=== PATIENT | male | born 1985 | race Caucasian/White ===

== ENCOUNTER 2021-07-28 17:10 | Observation (INO) ==
[2021-07-28] MEDS ORDERED: LORazepam 2 MG/1 ML VIAL IV STA (17:44)
[2021-07-28] MEDS ORDERED: SODIUM CHLORIDE 0.9% 1000ML 1,000 ML IV ONE (17:44)
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
[2021-07-28 18:33] LABS: Hematocrit (blood only) 37.9 % (42-52); Hemoglobin 12.9 g/dL (14.0-18.0); Mean Corpuscular Hemoglobin 35.6 pg (25-34); Mean Corpuscular Volume 104.7 fL (80-100); Mean Platelet Volume 9.5 fL (7.4-10.4); Platelet Count 234 K/uL (130-400); RDW Coefficient of Variation 12.9 % (11.5-14.5); RDW Standard Deviation 49.3 fL (36.4-46.3); Red Blood Count 3.62 M/uL (4.7-6.1); White Blood Count 8.23 K/uL (4.8-10.8)
[2021-07-28 18:47] LABS: Acetaminophen < 3 ug/ml (10-30); D Dimer < 190 ug/L FEU (0-500); Salicylate < 3.0 mg/dl (3.0-30)
[2021-07-28 18:51] LABS: ALC (manual) 0.35 K/uL (1.2-3.4); Lymphocytes # (manual) 0.35 K/uL (1.2-3.4); Lymphocytes % (manual) 4.3 %; Monocytes # (manual) 0.07 K/uL (0.11-0.59); Monocytes % (manual) 0.9 %; Neutrophils % (manual) 94.8 %
[2021-07-28 18:59] LABS: Albumin Globulin Ratio 1.5 (0.9-2); Albumin Level 3.5 gm/dl (3.4-5.0); BUN Creatinine Ratio 16.5 (10-20); Bilirubin,Total 0.3 mg/dl (0.2-1.0); Calcium 8.5 mg/dl (8.5-10.1); Creatinine Clr Calc Pharmacy 81.1 ml/min; Est GFR (Non-African American) 80.3 ml/min; Globulin 2.3 gm/dl (2.5-4.0); Total Protein 5.8 gm/dl (6.0-8.3)
[2021-07-28] MEDS ORDERED: NovoLIN-R INSULIN PER UNIT CHARGE IV STA (19:12)
[2021-07-28] MEDS ORDERED: POTASSIUM CHLORIDE CRTAB 20 MEQ TABCR PO STA (19:12)
[2021-07-28 19:15] LABS: Potassium 4.6 mmol/L (3.5-5.1)
[2021-07-28 19:19] LABS: Amphetamines+Metham, Urine Neg (Neg); Barbiturates, Urine Neg (Neg); Benzodiazepine, Urine Neg (Neg); Cocaine, Urine Neg (Neg); MDMA (Ecstacy), Urine Neg (Neg); Methadone, Urine Neg (Neg); Opiate, Urine Neg (Neg); Phencyclidine, Urine Neg (Neg)
[2021-07-28] MEDS ORDERED: CONSULT PHARMACY STA (20:20)
[2021-07-28] MEDS ORDERED: PHARMACY GLYCEMIC MGMT CONSULT PRN (20:43)
[2021-07-28] MEDS ORDERED: INSULIN GLARGINE SOLOSTAR 100 UNITS/ML 3 ML PEN SC ONE (21:00)
[2021-07-28] MEDS ORDERED: INSULIN ASPART PER UNIT SC SCH (21:00)
[2021-07-28] MEDS ORDERED: SODIUM CHLORIDE 0.9% 500 ML IV ONE (21:23)
[2021-07-29] MEDS: INSULIN ASPART PER UNIT SC SCH ×6 (00:51→21:26)
--- NOTE | 2021-07-29 01:54 | Emergency Department Note ---
ED Visit Note Patient was placed on a sliding scale, there is a bed search for 201 due to suicidal ideation, the patient has a history of insulin-dependent diabetes, child welfare caseworker states that he continuously is denied due to his elevated blood sugar. Review of his labs he is not in diabetic ketoacidosis, a sliding scale was started by Dr. Rojas. This case was discussed with Dr. Carey for admission to the hospital at 1:54 AM Patient admitted to [facility] Diagnosis is hyperglycemia, uncontrolled; suicidal ideation Stable at 1:54 AM .
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
[2021-07-29] MEDS ORDERED: DEXTROSE 50% 50 ML SYRINGE IV PRN (04:54)
[2021-07-29] MEDS ORDERED: ACETAMINOPHEN 325 MG TAB PO PRN (04:54)
[2021-07-29] MEDS ORDERED: GLUCOSE 10 TABS/TUBE PO PRN (04:54)
[2021-07-29] MEDS ORDERED: PHARMACY GLYCEMIC MGMT CONSULT PRN (04:54)
[2021-07-29] MEDS ORDERED: CARBOHYDRATES FOR HYPOGLYCEMIA PO PRN (04:54)
[2021-07-29] MEDS ORDERED: SODIUM CHLORIDE 0.9% 1000ML 1,000 ML IV SCH (04:54)
[2021-07-29] MEDS ORDERED: GLUCAGON FOR INJ 1 MG VIAL SQ PRN (04:54)
[2021-07-29] MEDS ORDERED: GLUCOSE 40% GEL 15 GM TUBE PO PRN (04:54)
--- NOTE | 2021-07-29 05:49 | Communication Note ---
Date of Service: July 29, 2021 Notified by nursing of patient ripping out IV and refusing IV fluids, labs, or replacement of IV at this time. Reviewed chart. BSG lowered to below 200 w/p 20u IV insulin and is on sq regimen now. He received 40meq KCl in ED. Instructed nurse ok to defer labs and IV fluids temporarily. Day team to assess patient in morning if possible and to f/u that labs get done.
[2021-07-29 07:22] LABS: Phosphorus 3.6 mg/dl (2.5-4.9)
[2021-07-29] MEDS ORDERED: INSULIN ASPART PER UNIT SC SCH (07:30)
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
[2021-07-29] MEDS ORDERED: INSULIN GLARGINE SOLOSTAR 100 UNITS/ML 3 ML PEN SC SCH ×3 (09:00→21:00)
[2021-07-29 10:36] LABS: Hematocrit (blood only) 38.2 % (42-52); Hemoglobin 12.8 g/dL (14.0-18.0); Mean Corpuscular Hgb Conc 33.5 g/dL (32-36); Mean Corpuscular Volume 104.4 fL (80-100); Mean Platelet Volume 9.5 fL (7.4-10.4); Platelet Count 225 K/uL (130-400); RDW Coefficient of Variation 13.3 % (11.5-14.5); Red Blood Count 3.66 M/uL (4.7-6.1); White Blood Count 8.25 K/uL (4.8-10.8)
[2021-07-29 10:46] LABS: BUN Creatinine Ratio 10.5 (10-20); Calcium 8.3 mg/dl (8.5-10.1); Creatinine Clr Calc Pharmacy 85.3 ml/min; Est GFR (African American) 103.9 ml/min; Est GFR (Non-African American) 89.6 ml/min; Potassium 4.1 mmol/L (3.5-5.1)
[2021-07-29 12:17] LABS: Estimated Average Glucose 258 mg/dl; Hemoglobin A1C 10.6 % (4.5-5.6)
[2021-07-29 12:29] LABS: Folate (Folic Acid) 19.91 ng/ml (>5.38)
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
[2021-07-29 14:10] LABS: iSTAT Creatinine 0.9 mg/dl (0.6-1.3); iSTAT Hemoglobin 13.6 g/dl (14.0-18.0); iSTAT Ionized Calcium 1.09 mmol/l (1.12-1.32); iSTAT Potassium 4.5 mmol/L (3.3-5.0)
[2021-07-29] MEDS: FOLIC ACID 1 MG TAB PO SCH (14:17)
[2021-07-29] MEDS: CYANOCOBALAMIN (B-12) 500 MCG TABLET PO SCH (14:17)
--- NOTE | 2021-07-29 14:24 | Pharmacy Report ---
Pharmacy Glycemic Short Note 2 - Date of Service July 29, 2021 - Glycemic Short BSG Results (Last 24 hours): 07/28/21 07/28/21 07/28/21 18:18 18:23 19:18 Glucose 514 H* POC Glucose 504 H* POC Glucose (other) 557 H* 07/28/21 07/28/21 07/28/21 20:02 20:52 23:02 Glucose POC Glucose 409 H* 235 H 107 H POC Glucose (other) 07/29/21 07/29/21 07/29/21 00:46 01:23 04:01 Glucose POC Glucose 159 H 171 H 188 H POC Glucose (other) 07/29/21 07/29/21 07/29/21 07:49 10:08 11:35 Glucose 189 H POC Glucose 191 H 127 H POC Glucose (other) OUTPATIENT ANTIDIABETIC REGIMEN: * Lantus 10 units BID? * Novolog sliding scale * HbA1C = 10.6% (07/29/21) ASSESSMENT: * Mr Horton is a 36 y/o T1DM who presents with chest pain. Due to patient's social situation, his insulin use is sporadic and he does not check his blood sugar. * Due to patient's unknown insulin requirements, will start with 0.4 units/kg for a type 1 diabetic. That correlates to about 25 units/day. * Lantus 10 units plus 20 units of IV insulin given last night due to elevated BSGs. * BSGs overnight were 159-188 mg/dL (received an additional 3 units of Novolog overnight). * Fasting this morning was 191 mg/dL. * Will provide Lantus 10 units tonight with her dose available if BSGs trend upwards significantly. * Novolog weight-based stress of ~2. PLAN FOR INPATIENT GLYCEMIC CONTROL: * Basal insulin * Lantus 10 units SQ HS (12 units if BSG >/= 180 mg/dL) * Bolus insulin * NovoLog per scale ACHS or Q6hrs while NPO * Goal Range: Low 110 mg/dL - High 140 mg/dL * Correction Factor: 40 mg/dL/unit * Nutritional / Prandial insulin per carb ratio of 1 unit per 12 grams CHO consumed
--- NOTE | 2021-07-29 17:57 | Electrocardiogram Report ---
Test Reason : Blood Pressure : / mmHG Vent. Rate : 110 BPM Atrial Rate : 110 BPM P-R Int : 140 ms QRS Dur : 076 ms QT Int : 320 ms P-R-T Axes : 059 049 042 degrees QTc Int : 433 ms Sinus tachycardia Otherwise normal ECG No previous ECGs available Confirmed by Pan Cummins ([id number]) on 07/29/2021 5:56:43 PM Referred By: REFERRED SELF Confirmed By:Uriah Cummins
[2021-07-30] MEDS: INSULIN ASPART PER UNIT SC SCH ×6 (01:08→20:56)
[2021-07-30 06:27] LABS: Hemoglobin 13.5 g/dL (14.0-18.0); Mean Corpuscular Hemoglobin 34.7 pg (25-34); Mean Corpuscular Hgb Conc 32.9 g/dL (32-36); Mean Corpuscular Volume 105.4 fL (80-100); Mean Platelet Volume 9.7 fL (7.4-10.4); Platelet Count 230 K/uL (130-400); RDW Coefficient of Variation 13.2 % (11.5-14.5); RDW Standard Deviation 50.5 fL (36.4-46.3); Red Blood Count 3.89 M/uL (4.7-6.1); White Blood Count 7.16 K/uL (4.8-10.8)
[2021-07-30 06:49] LABS: Albumin Level 3.3 gm/dl (3.4-5.0); Bilirubin,Total 0.3 mg/dl (0.2-1.0); Calcium 8.7 mg/dl (8.5-10.1); Creatinine Clr Calc Pharmacy 106.6 ml/min; Est GFR (African American) 128.7 ml/min; Est GFR (Non-African American) 111.1 ml/min; Potassium 3.9 mmol/L (3.5-5.1); Total Protein 5.8 gm/dl (6.0-8.3)
[2021-07-30 06:50] LABS: Basophils # (auto) 0.02 K/uL (0-0.2); Basophils % (auto) 0.3 %; Eosinophils # (auto) 0.13 K/uL (0-0.5); Eosinophils % (auto) 1.8 %; Immature Granulocytes # (auto) 0.02 K/uL (0.00-0.02); Immature Granulocytes % (auto) 0.3 %; Lymphocytes # (auto) 2.28 K/uL (1.2-3.4); Lymphocytes % (auto) 31.8 %; Monocytes # (auto) 0.56 K/uL (0.11-0.59); Monocytes % (auto) 7.8 %; Neutrophils # (auto) 4.15 K/uL (1.4-6.5)
[2021-07-30 07:51] LABS: Estimated Average Glucose 255 mg/dl; Hemoglobin A1C 10.5 % (4.5-5.6)
[2021-07-30] MEDS: CYANOCOBALAMIN (B-12) 500 MCG TABLET PO SCH (08:21)
[2021-07-30] MEDS: FOLIC ACID 1 MG TAB PO SCH (08:21)
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
--- NOTE | 2021-07-30 13:52 | Pharmacy Report ---
Pharmacy Glycemic Short Note 2 - Date of Service July 30, 2021 - Glycemic Short BSG Results (Last 24 hours): 07/28/21 07/29/21 07/29/21 18:23 16:09 20:41 Glucose POC Glucose 215 H 246 H POC Glucose (other) 557 H* 07/30/21 07/30/21 07/30/21 01:01 04:00 06:01 Glucose 163 H POC Glucose 176 H 217 H POC Glucose (other) 07/30/21 07/30/21 08:15 12:08 Glucose POC Glucose 220 H 196 H POC Glucose (other) OUTPATIENT ANTIDIABETIC REGIMEN: * Lantus 10 units BID? * Novolog sliding scale * HbA1C = 10.6% (07/29/21) ASSESSMENT: * BSGs yesterday were [phone] mg/dL and overnight were 176-217 mg/dL. * Patient received 45 units of insulin (12 units of basal and 33 units of bolus). * Fasting this morning was 220 mg/dL. Patient received 2 units of Novolog ove rnight. * Increase Lantus to 13 units. * Tighten Novolog slightly since blood sugars trended up after lunch. Baseline * Mr Sol is a 36 y/o T1DM who presents with chest pain. Due to patient's social situation, his insulin use is sporadic and he does not check his blood sugar. * Due to patient's unknown insulin requirements, will start with 0.4 units/kg for a type 1 diabetic. That correlates to about 25 units/day. * Lantus 10 units plus 20 units of IV insulin given last night due to elevated BSGs. * BSGs overnight were 159-188 mg/dL (received an additional 3 units of Novolog overnight). * Fasting this morning was 191 mg/dL. * Will provide Lantus 10 units tonight with her dose available if BSGs trend upwards significantly. * Novolog weight-based stress of ~2. PLAN FOR INPATIENT GLYCEMIC CONTROL: * Basal insulin * Lantus 13 units SQ HS * Bolus insulin * NovoLog per scale ACHS or Q6hrs while NPO * Goal Range: Low 110 mg/dL - High 140 mg/dL * Correction Factor: 35 mg/dL/unit * Nutritional / Prandial insulin per carb ratio of 1 unit per 11 grams CHO consumed
[2021-07-30] MEDS ORDERED: INSULIN GLARGINE SOLOSTAR 100 UNITS/ML 3 ML PEN SC SCH (21:00)
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
[2021-07-31] MEDS: CYANOCOBALAMIN (B-12) 500 MCG TABLET PO SCH (08:18)
[2021-07-31] MEDS: FOLIC ACID 1 MG TAB PO SCH (08:18)
[2021-07-31] MEDS: INSULIN ASPART PER UNIT SC SCH ×2 (08:19→12:33)
[2021-07-31 09:18] LABS: BUN Creatinine Ratio 17.5 (10-20); Calcium 8.8 mg/dl (8.5-10.1); Creatinine Clr Calc Pharmacy 111.9 ml/min; Est GFR (African American) 131.3 ml/min; Est GFR (Non-African American) 113.3 ml/min; Potassium 4.5 mmol/L (3.5-5.1)
--- NOTE | 2021-07-31 09:45 | Psychiatric Progress Note ---
Date of Service July 31, 2021 Impression / Recommendations Impression medically cleared for psychiatric hospitalization per hospitalist service (1) MDD (major depressive disorder), recurrent episode, moderate: (2) Suicidal ideation: (3) Intermittent explosive disorder in adult: 201 signed Risk Factors Assessment Do You Have Access To A Gun?: No Protective Factors Assessment Employed: No (disabled) Interval History Identifying Information 36 yo male admit medically for hyperglycemia. Presented with SI with plan to OD on insulin. Chief Complaint "I'm ready for next steps/want help." Review of Systems Notes sleep is OK, remains anxious about his situation, good PO intake. Subjective Subjective Patient was seen & assessed and interval progress reviewed with nursing. Remains on -- for suicide precautions pending transfer to inpatient psych. Patient understanding of bed availability and rationale for transfer. Voiced good understanding of inpatient care and 72 hr. notice on voluntary commitment. Physical Exam Psychiatric Orientation: alert and oriented x 3 Eye Contact: good eye contact Motor Behavior: no abnormal motor movements Speech: normal rate/rhythm/volume of speech Affect: + blunted affect Mood: + depressed mood Thought Process: goal directed thought process Thought Content: reality based without delusions Suicidal Thoughts: denies suicidal thoughts (on medical floor but unable to safety plan) Homicidal Thoughts: denies homicidal thoughts Hallucinations: no auditory hallucinations and no visual hallucinations Cognition: attention grossly intact and language grossly intact Vital Signs (Past 24 Hours) Last Vital Signs Temp 36.7 C 07/31/21 06:47 Pulse 94 H 07/31/21 06:47 Resp 16 07/31/21 06:47 BP 109/72 07/31/21 06:47 Pulse Ox 97 07/31/21 06:47 Results & Data ([facility]) Laboratory Results Laboratory Results - last 24 hr 07/30/21 07/30/21 07/30/21 12:08 17:11 20:21 Sodium Potassium Chloride Carbon Dioxide Anion Gap BUN Creatinine Est Cr Clr Drug Dosing Est GFR ( Amer) Est GFR (Non-Af Amer) BUN/Creatinine Ratio Glucose POC Glucose 196 H 272 H 187 H Calcium 07/31/21 07/31/21 08:04 08:23 Sodium 135 L Potassium 4.5 Chloride 99 Carbon Dioxide 30 Anion Gap 6 BUN 14 Creatinine 0.80 Est Cr Clr Drug Dosing 111.9 Est GFR ( Amer) 131.3 Est GFR (Non-Af Amer) 113.3 BUN/Creatinine Ratio 17.5 Glucose 226 H POC Glucose 212 H Calcium 8.8 Current Inpatient Medications Current Inpatient Medications: Current Inpatient Medications Acetaminophen (Acetaminophen 325 Mg Tab) 650 mg PO Q4H PRN PRN Reason: pain/fever Stop: 08/28/21 04:53 Cyanocobalamin (Cyanocobalamin (B-12) 500 Mcg Tablet) 1,000 mcg PO QAM COUNT INCLUDES THE [facility] Stop: 08/28/21 12:44 Last Admin: 07/31/21 08:18 Dose: 1,000 mcg Documented by: Dextrose (Dextrose 50% 50 Ml Syringe) 25 - 50 ml IV UD PRN; Protocol PRN Reason: Hypoglycemia Protocol Stop: 08/28/21 04:53 Folic Acid ([facility] 1 Mg Tab) [facility] Stop: 08/28/21 12:44 Last Admin: 07/31/21 08:18 Dose: 1 mg Documented by: Glucagon (Glucagon For Inj 1 Mg Vial) 1 mg SQ UD PRN; Protocol PRN Reason: Hypoglycemia Protocol Stop: 08/28/21 04:53 Glucose (Glucose 10 Tabs/Tube) 4 - 8 tabs PO UD PRN; Protocol PRN Reason: Hypoglycemia Protocol Stop: 08/28/21 04:53 Glucose (Glucose 40% Gel 15 Gm Tube) 15 - 30 gm PO UD PRN; Protocol PRN Reason: Hypoglycemia Protocol Stop: 08/28/21 04:53 Insulin Aspart (Insulin Aspart Per Unit) 0 units SC [facility] Stop: 08/28/21 07:29 Last Admin: 07/31/21 08:19 Dose: 8 units Documented by: Insulin Glargine (Insulin Glargine Solostar 100 Units/Ml 3 Ml Pen) 13 units SC [facility]; Protocol Stop: 08/29/21 20:59 Last Admin: 07/30/21 20:57 Dose: 13 units Documented by: Miscellaneous (Carbohydrates For Hypoglycemia ) 15 - 30 gm PO UD PRN PRN Reason: Hypoglycemia Protocol Stop: 08/28/21 04:53 Miscellaneous Information (Pharmacy Glycemic Mgmt Consult) 1 ea N/A UD PRN; Protocol PRN Reason: Consult Stop: 08/28/21 04:53 Mental Health & Subst Abuse Tx Therapist Name of Therapist: None Skates Operator Name of Skates Operator: None
== END 2021-07-31 12:50 | DRG 638 ==
LOC: ED 17:10 → 3E 07-29 02:18 → SUATTDRO 07-29 02:18 → INTOOBSV 07-29 02:18 → 3E 07-29 04:46

== ENCOUNTER 2021-12-03 22:07 | Inpatient (IN) ==
[2021-12-03] MEDS ORDERED: HHS GOAL RANGE 250-350 mg/dl ONE (22:21)
[2021-12-03] MEDS ORDERED: GLUCOSE 40% GEL 15 GM TUBE PO PRN (22:21)
[2021-12-03] MEDS ORDERED: STAT INSULIN DRIP STA (22:21)
[2021-12-03] MEDS ORDERED: DEXTROSE 50% 50 ML SYRINGE IV PRN (22:21)
[2021-12-03] MEDS ORDERED: GLUCOSE 10 TAB/TUBE PO PRN (22:21)
[2021-12-03] MEDS ORDERED: GLUCAGON FOR INJ 1 MG VIAL SQ PRN (22:21)
[2021-12-03] MEDS ORDERED: CARBOHYDRATES FOR HYPOGLYCEMIA PO PRN (22:21)
[2021-12-03] MEDS ORDERED: SODIUM CHLORIDE 0.9% 1000ML 1,000 ML IV ONE (22:21)
[2021-12-03] MEDS ORDERED: INSULIN REGULAR 250 UNITS in SODIUM CHLORIDE 0.9% 247.5 ML IV SCH (22:30)
[2021-12-03] MEDS ORDERED: SODIUM CHLORIDE 0.9% 1000ML 1,000 ML IV SCH ×2 (22:30→23:45)
[2021-12-03 22:44] LABS: Hematocrit (blood only) 43.9 % (40.1-51.0); Hemoglobin 13.5 g/dl (14.0-18.0); Mean Corpuscular Hemoglobin 34.5 pg (25.0-34.0); Mean Corpuscular Hgb Conc 30.8 g/dL (32.0-36.0); Mean Corpuscular Volume 112.3 fL (80.0-100.0); Mean Platelet Volume 9.5 fL (9.4-12.4); Platelet Count 375 K/uL (130-400); RDW Coefficient of Variation 13.7 % (11.5-14.5); RDW Standard Deviation 57.4 fL (36.4-46.3); Red Blood Count 3.91 M/uL (4.63-6.08); White Blood Count 12.56 K/ul (4.8-10.8)
[2021-12-03] MEDS ORDERED: NovoLIN-R BOLUS FROM BAG IV ONE (22:45)
[2021-12-03 22:49] LABS: iSTAT Blood Urea Nitrogen 28 mg/dl (7-18); iSTAT Carbon Dioxide 6 mmol/L (24-31); iSTAT Chloride 103 mmol/L (101-112); iSTAT Creatinine 1.3 mg/dl (0.6-1.3); iSTAT Glucose > 700 mg/dl (70-99); iSTAT Hematocrit 45 % (42-52); iSTAT Hemoglobin 15.3 g/dl (14.0-18.0); iSTAT Ionized Calcium 1.23 mmol/l (1.12-1.32); iSTAT Potassium 5.5 mmol/L (3.3-5.0); iSTAT Sodium 130 mmol/L (135-144)
[2021-12-03 23:09] LABS: Albumin Globulin Ratio 1.4 (0.9-2); BUN Creatinine Ratio 14.9 (10-20); Bilirubin,Total 0.3 mg/dl (0.2-1.0); Calcium 9.3 mg/dl (8.5-10.1); Creatinine Clr Calc Pharmacy 56.2 ml/min; Est GFR (African American) 61.9 ml/min; Est GFR (Non-African American) 53.4 ml/min; Globulin 2.9 gm/dl (2.5-4.0); Magnesium 2.7 mg/dl (1.7-2.4); Phosphorus 8.3 mg/dl (2.5-4.9); Potassium 5.3 mmol/L (3.5-5.1); Total Protein 6.9 gm/dl (6.0-8.3)
[2021-12-03 23:10] LABS: Basophils # (auto) 0.08 K/uL (0-0.2); Basophils % (auto) 0.6 %; Eosinophils # (auto) 0.03 K/uL (0-0.50); Eosinophils % (auto) 0.2 %; Immature Granulocytes # (auto) 0.25 K/uL (0.00-0.02); Lymphocytes # (auto) 1.78 K/uL (1.2-3.4); Lymphocytes % (auto) 14.2 %; Macrocytosis Present; Monocytes # (auto) 0.81 K/uL (0.24-0.82); Monocytes % (auto) 6.4 %; Neutrophils # (auto) 9.61 K/uL (1.4-6.5); Neutrophils % (auto) 76.6 %
[2021-12-03 23:13] LABS: iSTAT Arterial Blood Gas HCO3 3 meg/L (19-24); iSTAT Arterial Blood Gas pCO2 12 mmHg (35-46); iSTAT Arterial Blood Gas pH 6.95 (7.35-7.45); iSTAT Arterial Blood Gas pO2 79 mmHg (80-95); iSTAT Carbon Dioxide < 5 mmol/L (24-31); iSTAT Hematocrit 39 % (42-52); iSTAT Hemoglobin 13.3 g/dl (14.0-18.0); iSTAT Potassium 5.1 mmol/L (3.3-5.0); iSTAT Sodium 128 mmol/L (135-144)
[2021-12-03] MEDS ORDERED: SODIUM BICARBONATE 8.4% 150 MEQ in WATER, STERILE 1,000 ML IV SCH (23:30)
[2021-12-03] MEDS ORDERED: SODIUM BICARBONATE 8.4% INJ 50 MEQ/50 ML VIAL IV STA (23:31)
[2021-12-03 23:32] LABS: Base Excess VBG -28.5 mEq/L; HCO3 VBG 3 mmol/L; Oxygen Saturation VBG 86.1 %; PCO2 VBG 18 mmHg (38-50); PO2 VBG 64 mmHg; pH VBG < 7.00 (7.36-7.41)
[2021-12-03] MEDS ORDERED: SODIUM BICARB 8.4% INJ 50 MEQ/50 ML SYR IV ONE (23:35)
[2021-12-03 23:38] LABS: Troponin I High Sensitivity 10.4 pg/ml (0-20)
--- NOTE | 2021-12-03 23:54 | Emergency Department Note ---
History of Present Illness General Chief complaint: Vomiting Stated complaint: SOB, CHEST PAINS, VOMITTING, FATIGUE Time Seen by Provider: 12/03/21 22:15 History of Present Illness This is a 36-year-old male presenting to the emergency department for evaluation of nausea, vomiting, and fatigue over the past 2 days. The patient states he is able to eat or drink because of vomiting. He is a type I diabetic and is not adherent to his insulin regimen. Last A1C was over 10. Patient has had some vague chest discomfort and difficulty breathing tonight, prompting his presentation to the ER. He does arrive via private vehicle with his girlfriend who is not present in the room to provide additional history. History is somewhat limited from the patient himself due to his illness. Home Medications Medication Instructions Recorded Confirmed Type blood sugar diagnostic (Go [place]Touch #100 ea 07/31/21 10/26/21 Rx Verio test strips) insulin syringe-needle U-100 0.3 #100 ea 07/31/21 10/26/21 Rx mL 31 gauge x 15/64" lancets 33 gauge (OneTouch Delica #100 ea 07/31/21 10/26/21 Rx Lancets) divalproex 500 mg tablet,delayed 500 mg PO DAILY #30 tabs 10/26/21 10/26/21 Rx release insulin aspart U-100 100 unit/mL See Rx Instructions .Route 10/26/21 10/26/21 Rx subcutaneous solution (Novolog .COMPLEX #10 mL U-100 Insulin aspart) insulin glargine 100 unit/mL (3 13 unit (0.13 mL) SC HS #15 mL 10/26/21 10/26/21 Rx mL) subcutaneous pen (Lantus Solostar U-100 Insulin) albuterol sulfate 90 mcg/actuation 2 puff inhalation Q6H PRN 10/29/21 Rx aerosol inhaler shortness of breath or wheezing #8.5 grams Allergies Allergy/AdvReac Type Severity Reaction Status Date / Time codeine Allergy Intermediate Rash Verified 10/26/21 14:29 erythromycin base Allergy Unknown HAPPENED Verified 10/26/21 14:29 A SMALL CHILD Past Med/Surg History Medical History Acute hyperglycemia Suicidal ideation Type I diabetes mellitus Surgical History No significant past surgical history Family History Other Diabetes Social History Smoking Status: Current every day smoker Tobacco Type: Cigarettes Cigarettes Per Day: 1 pack; Second Hand Exposure: No; Hx Alcohol Use: No Hx Substance Use: No Preferred Language: Swedish Communication Ability: Effective Visual Impairment: Limited Hearing Ability: Normal Field Technical Assistant Required: No Beliefs That Will Affect Care: None marital status: Single Current Living Situation: Homeless Current Living Situation Comment: Cousin current occupational status: disabled How many Children do You have: 0 Feels Safe at Home: Yes Childhood Exposure to Second-Hand Smoke: No caffeine: Yes during the past year weight has: remained stable Dental Care, Regularly: Yes Physical Activity Frequency: Daily Seatbelt Use: always Sunscreen Use: No Do you think of yourself as: straight/heterosexual Sexual Activity: has been sexually active within the last 12 months Gender Identity: Male Assistive Devices: None Review of Systems A total of 10 systems reviewed and were otherwise negative Physical Exam Vital Signs Vital Signs - 24 hr 12/03/21 22:08 12/03/21 23:05 Temperature 36.4 C L 36.9 C Temperature Source Temporal Artery Scan Oral Pulse Rate 151 H Pulse Rate [Finger] 135 H Respiratory Rate 36 H 19 Respiratory Effort / Characteristics Labored Non-Labored Spontaneous Respiratory Depth Normal Blood Pressure 111/63 Blood Pressure [Right Arm] 108/63 Blood Pressure Mean 79 Blood Pressure Mean [Right Arm] 78 Pulse Oximetry 98 98 Oxygen Delivery Method Room Air Room Air Sepsis Recent Fever Within 48 Hours No Sepsis New/Unexplained Change in Mental Status N/A Sepsis Action Taken by Nursing No Action Required VITALS: Vitals are noted on the nurse's note and reviewed by myself. Vital signs with notable tachycardia and tachypnea GENERAL: Thin appearing white male who is in significant acute distress. He appears quite ill and is breathing rapidly. He is able to answer questions in 1 or 2 word answers. HEAD: Normocephalic atraumatic. MOUTH: Mucous membranes dry. Airway is patent. NECK: Supple without nuchal rigidity. No lymphadenopathy. No thyromegaly. Cervical spine is nontender. HEART: Tachycardic rate with regular rhythm LUNGS: Clear to auscultation bilaterally without wheezes, rales or rhonchi. No retractions or accessory muscle use. ABDOMEN: Positive normal bowel sounds x 4. Soft, nontender, without masses or organomegaly. No guarding or rebound tenderness. MUSCULOSKELETAL: Full range of motion's to all extremities. Mild bilateral lower extremity edema which appears chronic. NEURO: Patient was alert and oriented to person place and time. CN II through XII grossly intact. Speech is somewhat mumbled. Course Administered Medications Discontinued Medications Divalproex Sodium (Divalproex Delay Release 500 Mg Tab) 500 mg PO DAILY [facility] Stop: 01/03/22 08:59 Last Admin: 12/04/21 07:47 Dose: 500 mg Documented By: VALENTIN Enoxaparin Sodium (Enoxaparin Inj 40 Mg/0.4 Ml Syr) 40 mg SQ QAM [facility] Stop: 01/03/22 08:59 Last Admin: 12/04/21 11:49 Dose: Not Given Documented By: VALENTIN Sodium Chloride (Nss 1000ml) 1,000 mls @ 999 mls/hr IV .Q1H1M ONE Stop: 12/03/21 23:21 Last Infusion: 12/03/21 23:48 Dose: 0 mls/hr Documented By: Admin: 12/03/21 22:31 Dose: 999 mls/hr Documented By: SELMA Sodium Chloride (Nss 1000ml) 1,000 mls @ 999 mls/hr IV .Q1H1M [facility] Stop: 12/03/21 23:30 Last Infusion: 12/04/21 00:09 Dose: 0 mls/hr Documented By: Admin: 12/03/21 22:31 Dose: 999 mls/hr Documented By: SELMA Insulin Human Regular 250 (units/ Sodium Chloride) 250 mls @ 1 mls/hr IV .Q24H [facility]IS[facility]; Protocol Stop: 01/02/22 22:29 Last Titration: 12/04/21 14:30 Dose: 0 units/hr, 0 mls/hr Documented By: VALENTIN Co-signed By: VIPUL Titration: 12/04/21 12:59 Dose: 1.6 units/hr, 1.6 mls/hr Documented By: VALENTIN Co-signed By: VIPUL Titration: 12/04/21 11:46 Dose: 2 units/hr, 2 mls/hr Documented By: VALENTIN Co-signed By: VIPUL Titration: 12/04/21 10:02 Dose: 2 units/hr, 2 mls/hr Documented By: VALENTIN Co-signed By: VIPUL Titration: 12/04/21 06:57 Dose: 2 units/hr, 2 mls/hr Documented By: ROSA Co-signed By: GPF Titration: 12/04/21 05:52 Dose: 2 units/hr, 2 mls/hr Documented By: ELS Co-signed By: BPY Titration: 12/04/21 04:50 Dose: 2 units/hr, 2 mls/hr Documented By: ROSA Co-signed By: BPY Titration: 12/04/21 04:23 Dose: 2 units/hr, 2 mls/hr Documented By: ROSA Co-signed By: MEJ Titration: 12/04/21 03:50 Dose: 0 units/hr, 0 mls/hr Documented By: ROSA Co-signed By: BPY Titration: 12/04/21 02:51 Dose: 5.8 units/hr, 5.8 mls/hr Documented By: ROSA Co-signed By: MEJ Titration: 12/04/21 01:49 Dose: 7.2 units/hr, 7.2 mls/hr Documented By: ROSA Co-signed By: GARRY Admin: 12/04/21 00:06 Dose: 6 units/hr, 6 mls/hr Documented By: TRACEE Co-signed By: ALMA Sodium Bicarbonate 150 meq/ (Sterile Water) 1,150 mls @ 125 mls/hr IV .Q9H12M [facility] Stop: 01/02/22 23:29 Last Infusion: 12/04/21 04:33 Dose: 0 mls/hr Documented By: Admin: 12/03/21 23:43 Dose: 80 mls/hr Documented By: TRACEE Potassium Chloride 40 meq/ (Sodium Chloride) 1,020 mls @ 125 mls/hr IV .Q8H10M [facility]ISSA Stop: 01/03/22 01:29 Last Infusion: 12/04/21 04:32 Dose: 0 mls/hr Documented By: Admin: 12/04/21 01:35 Dose: 125 mls/hr Documented By: ROSA Potassium Chloride/Dextrose/Sod Cl (D5w And 1/2nss + 20meq Kcl) 20 meq in 1,000 mls @ 250 mls/hr IV .Q4H [facility]; Protocol Stop: 01/03/22 04:29 Last Infusion: 12/04/21 11:39 Dose: 0 mls/hr Documented By: Admin: 12/04/21 07:47 Dose: 250 mls/hr Documented By: Infusion: 12/04/21 07:47 Dose: 250 mls/hr Documented By: Admin: 12/04/21 04:22 Dose: 250 mls/hr Documented By: ROSA Insulin Aspart (Insulin Aspart Per Unit) [address] [facility] Stop: 01/03/22 07:29 Last Admin: 12/04/21 11:48 Dose: 3 units Documented By: VALENTIN Co-signed By: VIPUL Admin: 12/04/21 07:47 Dose: Not Given Documented By: VALENTIN Co-signed By: PERLA Insulin Aspart (Insulin Aspart Per Unit) [address] [facility] Stop: 01/03/22 16:29 Last Admin: 12/04/21 16:37 Dose: 8 units Documented By: VALENTIN Co-signed By: PERLA Insulin Glargine (Lantus Per Unit Charge) 13 units SQ NOW ONE Stop: 12/04/21 12:01 Last Admin: 12/04/21 11:58 Dose: 13 units Documented By: VALETNIN Co-signed By: PERLA Insulin Human Regular (Novolin-R Bolus From Bag) 6 units IV ONE ONE Stop: 12/03/21 22:46 Last Admin: 12/04/21 00:07 Dose: 6 units Documented By: TRACEE Co-signed By: ALMA Sodium Bicarbonate (Sodium Bicarbonate 8.4% Inj 50 Meq/50 Ml Vial) 50 meq IV NOW STA Stop: 12/03/21 23:32 Last Admin: 12/03/21 23:37 Dose: 50 meq Documented By: TRACEE Sodium Bicarbonate (Sodium Bicarb 8.4% Inj 50 Meq/50 Ml Syr) Confirm Administered Dose 50 meq IV .STK-MED ONE Stop: 12/03/21 23:36 Last Admin: 12/03/21 23:36 Dose: Not Given Documented By: TRACEE Sodium Bicarbonate (Sodium Bicarb 8.4% Inj 50 Meq/50 Ml Syr) 50 meq IV NOW STA Stop: 12/04/21 02:25 Last Admin: 12/04/21 02:52 Dose: 50 meq Documented By: ROSA Sodium Bicarbonate (Sodium Bicarb 8.4% Inj 50 Meq/50 Ml Syr) Confirm Administered Dose 50 meq IV .STK-MED ONE Stop: 12/04/21 02:27 Last Admin: 12/04/21 02:52 Dose: Not Given Documented By: ROSA Critical Care Time I have personally spent greater than 57 minutes of critical care time in the direct management of this patient. This includes bedside care, interpretation of diagnostic studies, and testing, discussion with consultants, patient, and family members, and other required patient management activities. This 57 minutes is in excess of all separately billable procedures. Medical Decision Making Differential Diagnosis Differential includes DKA, dehydration, acute coronary syndrome, myocardial inf arction, CVA, TIA, anemia, infection, pneumonia, UTI, pyelonephritis, poor nutrition, dehydration, electrolyte disturbance,hypoglycemia. Laboratory Data Result diagrams: 12/03/21 22:27 12/04/21 17:07 Lab Results 12/03/21 12/03/21 12/03/21 Range/Units 22:09 22:27 22:27 WBC 12.56 H (4.8-10.8) K/ul RBC 3.91 L (4.63-6.08) M/uL Hgb 13.5 L (14.0-18.0) g/dl POC Hgb (14.0-18.0) g/dl Hct 43.9 (40.1-51.0) % POC Hct (42-52) % MCV 112.3 H (80.0-100.0) fL MCH 34.5 H (25.0-34.0) pg MCHC 30.8 L (32.0-36.0) g/dL RDW Std Deviation 57.4 H (36.4-46.3) fL RDW Coeff of Margarita 13.7 (11.5-14.5) % Plt Count 375 (130-400) K/uL MPV 9.5 (9.4-12.4) fL Immature Gran % (Auto) 2.0 % Neut % (Auto) 76.6 % Lymph % (Auto) 14.2 % Bracken % (Auto) 6.4 % Eos % (Auto) 0.2 % Baso % (Auto) 0.6 % Neut # (Auto) 9.61 H (1.4-6.5) K/uL Lymph # (Auto) 1.78 (1.2-3.4) K/uL Bracken # (Auto) 0.81 (0.24-0.82) K/uL Eos # (Auto) 0.03 (0-0.50) K/uL Baso # (Auto) 0.08 (0-0.2) K/uL Immature Gran # (Auto) 0.25 H (0.00-0.02) K/uL Macrocytosis Present POC pH (7.35-7.45) POC pCO2 (35-46) mmHg POC pO2 (80-95) mmHg POC HCO3 (19-24) joseph/L POC Base Excess (-9-1.8) joseph/L POC ABG O2 Sat (90-95) % VBG pH (7.36-7.41) VBG pCO2 (38-50) mmHg VBG pO2 mmHg VBG HCO3 mmol/L VBG O2 Saturation % VBG Base Excess mEq/L Barometric Pressure POC Sodium (135-144) mmol/L Sodium 132 L (136-145) mmol/L POC Potassium (3.3-5.0) mmol/L Potassium 5.3 H (3.5-5.1) mmol/L POC Chloride (101-112) mmol/L Chloride 90 L (98-107) mmol/L Carbon Dioxide 2 L* (21-32) mmol/L POC Total CO2 (24-31) mmol/L Anion Gap 40 H (3-11) POC Anion Gap (16-25) mmol/L POC BUN (7-18) mg/dl BUN 24 H (6-23) mg/dl Creatinine 1.61 H (0.6-1.4) mg/dl POC Creatinine (0.6-1.3) mg/dl Est Cr Clr Drug Dosing 56.2 ml/min Est GFR ( Amer) 61.9 ml/min Est GFR (Non-Af Amer) 53.4 ml/min BUN/Creatinine Ratio 14.9 (10-20) Glucose 693 H* (70-99(Fasting)) mg/dl POC Glucose > 600 H* (70-99) mg/dl POC Glucose (other) (70-99) mg/dl Estimat Average Glucose mg/dl Hemoglobin A1c (4.5-5.6) % Osmolality (280-300) mOsm/kg Lactate (0.4-2.0) mmol/L Calcium 9.3 (8.5-10.1) mg/dl POC Ioniz Calcium Zach (1.12-1.32) mmol/l Phosphorus 8.3 H (2.5-4.9) mg/dl Magnesium 2.7 H (1.7-2.4) mg/dl Total Bilirubin 0.3 (0.2-1.0) mg/dl AST 30 (13-39) U/L ALT 38 (7-52) U/L Alkaline Phosphatase 148 H (34-104) U/L Troponin I High Sens 10.4 (0-20) pg/ml Total Protein 6.9 (6.0-8.3) gm/dl Albumin 4.0 (3.4-5.0) gm/dl Globulin 2.9 (2.5-4.0) gm/dl Albumin/Globulin Ratio 1.4 (0.9-2) SARS-CoV-2, RNA, NAAT (NEGATIVE) 12/03/21 12/03/21 12/03/21 Range/Units 22:27 22:27 22:27 WBC (4.8-10.8) K/ul RBC (4.63-6.08) M/uL Hgb (14.0-18.0) g/dl POC Hgb (14.0-18.0) g/dl Hct (40.1-51.0) % POC Hct (42-52) % MCV (80.0-100.0) fL MCH (25.0-34.0) pg MCHC (32.0-36.0) g/dL RDW Std Deviation (36.4-46.3) fL RDW Coeff of Margarita (11.5-14.5) % Plt Count (130-400) K/uL MPV (9.4-12.4) fL Immature Gran % (Auto) % Neut % (Auto) % Lymph % (Auto) % Bracken % (Auto) % Eos % (Auto) % Baso % (Auto) % Neut # (Auto) (1.4-6.5) K/uL Lymph # (Auto) (1.2-3.4) K/uL Bracken # (Auto) (0.24-0.82) K/uL Eos # (Auto) (0-0.50) K/uL Baso # (Auto) (0-0.2) K/uL Immature Gran # (Auto) (0.00-0.02) K/uL Macrocytosis POC pH (7.35-7.45) POC pCO2 (35-46) mmHg POC pO2 (80-95) mmHg POC HCO3 (19-24) joseph/L POC Base Excess (-9-1.8) joseph/L POC ABG O2 Sat (90-95) % VBG pH (7.36-7.41) VBG pCO2 (38-50) mmHg VBG pO2 mmHg VBG HCO3 mmol/L VBG O2 Saturation % VBG Base Excess mEq/L Barometric Pressure POC Sodium (135-144) mmol/L Sodium (136-145) mmol/L POC Potassium (3.3-5.0) mmol/L Potassium (3.5-5.1) mmol/L POC Chloride (101-112) mmol/L Chloride (98-107) mmol/L Carbon Dioxide (21-32) mmol/L POC Total CO2 (24-31) mmol/L Anion Gap (3-11) POC Anion Gap (16-25) mmol/L POC BUN (7-18) mg/dl BUN (6-23) mg/dl Creatinine (0.6-1.4) mg/dl POC Creatinine (0.6-1.3) mg/dl Est Cr Clr Drug Dosing ml/min Est GFR ( Amer) ml/min Est GFR (Non-Af Amer) ml/min BUN/Creatinine Ratio (10-20) Glucose (70-99(Fasting)) mg/dl POC Glucose (70-99) mg/dl POC Glucose (other) (70-99) mg/dl Estimat Average Glucose 278 mg/dl Hemoglobin A1c 11.3 H (4.5-5.6) % Osmolality 346 H (280-300) mOsm/kg Lactate 1.5 (0.4-2.0) mmol/L Calcium (8.5-10.1) mg/dl POC Ioniz Calcium Zach (1.12-1.32) mmol/l Phosphorus (2.5-4.9) mg/dl Magnesium (1.7-2.4) mg/dl Total Bilirubin (0.2-1.0) mg/dl AST (13-39) U/L ALT (7-52) U/L Alkaline Phosphatase (34-104) U/L Troponin I High Sens (0-20) pg/ml Total Protein (6.0-8.3) gm/dl Albumin (3.4-5.0) gm/dl Globulin (2.5-4.0) gm/dl Albumin/Globulin Ratio (0.9-2) SARS-CoV-2, RNA, NAAT (NEGATIVE) 12/03/21 12/03/21 12/03/21 Range/Units 22:34 22:39 22:59 WBC (4.8-10.8) K/ul RBC (4.63-6.08) M/uL Hgb (14.0-18.0) g/dl POC Hgb 15.3 13.3 L (14.0-18.0) g/dl Hct (40.1-51.0) % POC Hct 45 39 L (42-52) % MCV (80.0-100.0) fL MCH (25.0-34.0) pg MCHC (32.0-36.0) g/dL RDW Std Deviation (36.4-46.3) fL RDW Coeff of Margarita (11.5-14.5) % Plt Count (130-400) K/uL MPV (9.4-12.4) fL Immature Gran % (Auto) % Neut % (Auto) % Lymph % (Auto) % Bracken % (Auto) % Eos % (Auto) % Baso % (Auto) % Neut # (Auto) (1.4-6.5) K/uL Lymph # (Auto) (1.2-3.4) K/uL Bracken # (Auto) (0.24-0.82) K/uL Eos # (Auto) (0-0.50) K/uL Baso # (Auto) (0-0.2) K/uL Immature Gran # (Auto) (0.00-0.02) K/uL Macrocytosis POC pH 6.95 L* (7.35-7.45) POC pCO2 12 L (35-46) mmHg POC pO2 79 L (80-95) mmHg POC HCO3 3 L (19-24) joseph/L POC Base Excess -29.0 L (-9-1.8) joseph/L POC ABG O2 Sat 86.0 L (90-95) % VBG pH (7.36-7.41) VBG pCO2 (38-50) mmHg VBG pO2 mmHg VBG HCO3 mmol/L VBG O2 Saturation % VBG Base Excess mEq/L Barometric Pressure POC Sodium 130 L 128 L (135-144) mmol/L Sodium (136-145) mmol/L POC Potassium 5.5 H 5.1 H (3.3-5.0) mmol/L Potassium (3.5-5.1) mmol/L POC Chloride 103 (101-112) mmol/L Chloride (98-107) mmol/L Carbon Dioxide (21-32) mmol/L POC Total CO2 6 L* < 5 L* (24-31) mmol/L Anion Gap (3-11) POC Anion Gap 28.0 H (16-25) mmol/L POC BUN 28 H (7-18) mg/dl BUN (6-23) mg/dl Creatinine (0.6-1.4) mg/dl POC Creatinine 1.3 (0.6-1.3) mg/dl Est Cr Clr Drug Dosing ml/min Est GFR ( Amer) ml/min Est GFR (Non-Af Amer) ml/min BUN/Creatinine Ratio (10-20) Glucose (70-99(Fasting)) mg/dl POC Glucose (70-99) mg/dl POC Glucose (other) > 700 H* (70-99) mg/dl Estimat Average Glucose mg/dl Hemoglobin A1c (4.5-5.6) % Osmolality (280-300) mOsm/kg Lactate (0.4-2.0) mmol/L Calcium (8.5-10.1) mg/dl POC Ioniz Calcium Zach 1.23 (1.12-1.32) mmol/l Phosphorus (2.5-4.9) mg/dl Magnesium (1.7-2.4) mg/dl Total Bilirubin (0.2-1.0) mg/dl AST (13-39) U/L ALT (7-52) U/L Alkaline Phosphatase (34-104) U/L Troponin I High Sens (0-20) pg/ml Total Protein (6.0-8.3) gm/dl Albumin (3.4-5.0) gm/dl Globulin (2.5-4.0) gm/dl Albumin/Globulin Ratio (0.9-2) SARS-CoV-2, RNA, NAAT NEGATIVE (NEGATIVE) 12/03/21 Range/Units 23:13 WBC (4.8-10.8) K/ul RBC (4.63-6.08) M/uL Hgb (14.0-18.0) g/dl POC Hgb (14.0-18.0) g/dl Hct (40.1-51.0) % POC Hct (42-52) % MCV (80.0-100.0) fL MCH (25.0-34.0) pg MCHC (32.0-36.0) g/dL RDW Std Deviation (36.4-46.3) fL RDW Coeff of Margarita (11.5-14.5) % Plt Count (130-400) K/uL MPV (9.4-12.4) fL Immature Gran % (Auto) % Neut % (Auto) % Lymph % (Auto) % Bracken % (Auto) % Eos % (Auto) % Baso % (Auto) % Neut # (Auto) (1.4-6.5) K/uL Lymph # (Auto) (1.2-3.4) K/uL Bracken # (Auto) (0.24-0.82) K/uL Eos # (Auto) (0-0.50) K/uL Baso # (Auto) (0-0.2) K/uL Immature Gran # (Auto) (0.00-0.02) K/uL Macrocytosis POC pH (7.35-7.45) POC pCO2 (35-46) mmHg POC pO2 (80-95) mmHg POC HCO3 (19-24) joseph/L POC Base Excess (-9-1.8) joseph/L POC ABG O2 Sat (90-95) % VBG pH < 7.00 L (7.36-7.41) VBG pCO2 18 L (38-50) mmHg VBG pO2 64 mmHg VBG HCO3 3 mmol/L VBG O2 Saturation 86.1 % VBG Base Excess -28.5 mEq/L Barometric Pressure CONTENT CURATOR POC Sodium (135-144) mmol/L Sodium (136-145) mmol/L POC Potassium (3.3-5.0) mmol/L Potassium (3.5-5.1) mmol/L POC Chloride (101-112) mmol/L Chloride (98-107) mmol/L Carbon Dioxide (21-32) mmol/L POC Total CO2 (24-31) mmol/L Anion Gap (3-11) POC Anion Gap (16-25) mmol/L POC BUN (7-18) mg/dl BUN (6-23) mg/dl Creatinine (0.6-1.4) mg/dl POC Creatinine (0.6-1.3) mg/dl Est Cr Clr Drug Dosing ml/min Est GFR ( Amer) ml/min Est GFR (Non-Af Amer) ml/min BUN/Creatinine Ratio (10-20) Glucose (70-99(Fasting)) mg/dl POC Glucose (70-99) mg/dl POC Glucose (other) (70-99) mg/dl Estimat Average Glucose mg/dl Hemoglobin A1c (4.5-5.6) % Osmolality (280-300) mOsm/kg Lactate (0.4-2.0) mmol/L Calcium (8.5-10.1) mg/dl POC Ioniz Calcium Zach (1.12-1.32) mmol/l Phosphorus (2.5-4.9) mg/dl Magnesium (1.7-2.4) mg/dl Total Bilirubin (0.2-1.0) mg/dl AST (13-39) U/L ALT (7-52) U/L Alkaline Phosphatase (34-104) U/L Troponin I High Sens (0-20) pg/ml Total Protein (6.0-8.3) gm/dl Albumin (3.4-5.0) gm/dl Globulin (2.5-4.0) gm/dl Albumin/Globulin Ratio (0.9-2) SARS-CoV-2, RNA, NAAT (NEGATIVE) Imaging Data Radiologist's Impression: Chest X-Ray 12/03/21 22:21 SINGLE VIEW CHEST CLINICAL HISTORY: Diabetic ketoacidosis FINDINGS: An AP, portable, upright chest radiograph is compared to study dated 10/25/2021. The cardiomediastinal silhouette is unremarkable. The lungs and pleural spaces are clear. No pneumothorax is seen. The bony thorax is grossly intact. IMPRESSION: No active disease in the chest. ACT 112: Negative or not required by law. Electronically signed by: Lex Ivan M.D. 12/04/2021 7:23 AM ECG Data Attestation: I personally reviewed and interpreted this ECG as follows: Additional Comments: Sinus tachycardia @[address] elevation Otherwise normal ECG When compared with ECG of 25-OCT-2021 16:38, No significant change was found MDM Narrative Physical exam and history were performed. Nursing notes, EMR, and Medication List were personally reviewed. Patient appears significantly ill on presentation. He is tachycardic and tachypneic. He does have a history of diabetes and on presentation clinically seems to be in DKA. 2 IVs were established and we did start the patient on 2 L of normal saline. Blood work was gathered. EKG was with sinus tachycardia. The case was discussed with my attending as the patient is critically ill. Patient's blood work is as above and was reviewed. He does not have a significantly elevated white blood cell count. I-STAT did show potassium of 5.5 and glucose greater than 700. IV insulin drip was ordered through the assistance of pharmacy. Patient is acidotic on VBG. Carbon dioxide is 2 and his anion gap is 40. Lab glucose was 693. COVID is negative. The patient was started on IV bicarb alongside his IV insulin drip. The patient case was discussed with the on-call hospitalist team as well as the intensive care unit. The patient will go to the unit for further care. Please see hospitalist team's dictations for further patient course, plan, disposition. The chart was completed utilizing [employer] Speech Voice Recognition Software. Grammatical errors, random word insertions, pronoun errors, and incomplete sentences are an occasional consequence of this system due to software limitations, ambient noise, and hardware issues. Any formal questions or concerns about the content, text, or information contained within the body of this dictation should be directly addressed to the provider for clarification. . Impression & Plan DKA (diabetic ketoacidosis), Metabolic acidosis, Type I diabetes mellitus Discharge Plan Visit Data Chief Complaint: Vomiting Stated Complaint: SOB, CHEST PAINS, VOMITTING, FATIGUE ED Provider: Edgardo Barros ED Midlevel Provider: Hitesh Bass Discharge Problem: DKA (diabetic ketoacidosis), Metabolic acidosis, Type I diabetes mellitus Patient Disposition: Admitted As Inpatient Discharge Instructions Interventions: ED Discharge Assessment Last Done: 12/04/21 00:24
[2021-12-04] MEDS ORDERED: SODIUM CHLOR 0.45% + 20MEQ KCL 20 MEQ/1,000 ML BAG IV SCH (00:45)
[2021-12-04] MEDS ORDERED: DKA GOAL RANGE 150-250 mg/dl ONE (00:50)
[2021-12-04] MEDS ORDERED: PHARMACY GLYCEMIC MGMT CONSULT PRN ×2 (00:50→01:16)
[2021-12-04] MEDS ORDERED: PENDING 1/2NSS+40mEq KCL IVF SCH (00:50)
--- NOTE | 2021-12-04 01:29 | History & Physical Report ---
Date of Service December 04, 2021 Assessment & Plan (1) DKA (diabetic ketoacidosis): Plan: 36yo male with Type I DM (poorly controlled - last [id number]=27.5 on 07/30/21) presenting with 2 days of nausea, vomiting, abdominal pain and PO intolerance. Patient found to have anion gap metabolic acidosis with pH on VBG=6.95, anion gap of 40, Serum HCO3=2. Elevated blood sugar to 695 as well as worsening renal function (Cr of 1.61 from 1.2). Serum osmolality elevated at 346. Patient with tachycardia, tachypnea and Kussmaul's respirations on physical exam. Findings most consistent with DKA in Type I diabetic. -Admit to MICU -Follow cultures sent by ER -Check UA, Lipase, UTox and EtOH level -Check A1C -Insulin gtt per DKA protocol -2L NSS administered -Continue IVF with 1/2 NSS at 125mL/hr -HCO3 1 amp given in ER, continue with HCO3 gtt at 80mL/hr -Glycemic management consultation appreciated -Monitor BMP, Mg, PO4 and VBG q 4 hours -Yf=124, corrects to 146 for hyperglycemia (2) MDD (major depressive disorder), recurrent episode, moderate: Plan: Patient on Divalproex 500mg po daily for mood -Continue in AM -Check level F/E/N - IVF per DKA protocol, Trend labs, NPO Ppx - Lovenox Code - Full Dispo- Admit to MICU Admission and Anticipated Discharge Date Admission Date: December 03, 2021 History of Present Illness Chief Complaint: nausea, vomiting and fatigue Primary Care Provider: Carolyn Story MD Laron Bradford is a 36yo male with history of Type I DM presenting with 2 days of nausea, vomiting, diarrhea and decreased oral intake. Patient reports he has not been able to tolerate any food for the last two days. He reports compliance with his insulin regimen. Denies fever, chills, chest pain, cough, SOB, abdominal pain. Denies EtOH or substance use Patient did have Covid-19 on 11/17/21, tested NEGATIVE today. In the ER patient tachycardic and tachypneic. He was found to be profoundly acidemic with pH of 6.95, anion gap of 40 and serum HCO3 of 2. Blood sugar elevated to 693 Patient is altered but awake and able to answer some questions. ER Course: NSS x 2 liters HCO3 x 1 amp, HCO3 gtt initiated (150meq in sterile water at 80mL/hr) Regular insulin 6u then insulin gtt Allergies Allergy/AdvReac Type Severity Reaction Status Date / Time codeine Allergy Intermediate Rash Verified 10/26/21 14:29 erythromycin base Allergy Unknown HAPPENED Verified 10/26/21 14:29 A SMALL CHILD Home Medications Medication Instructions Recorded Confirmed Type blood sugar diagnostic (OneTouch #100 ea 07/31/21 10/26/21 Rx Verio test strips) insulin syringe-needle U-100 0.3 #100 ea 07/31/21 10/26/21 Rx mL 31 gauge x 15/64" lancets 33 gauge (OneTouch Delica #100 ea 07/31/21 10/26/21 Rx Lancets) divalproex 500 mg tablet,delayed 500 mg PO DAILY #30 tabs 10/26/21 10/26/21 Rx release insulin aspart U-100 100 unit/mL See Rx Instructions .Route 10/26/21 10/26/21 Rx subcutaneous solution (Novolog .COMPLEX #10 mL U-100 Insulin aspart) insulin glargine 100 unit/mL (3 13 unit (0.13 mL) SC HS #15 mL 10/26/21 10/26/21 Rx mL) subcutaneous pen (Lantus Solostar U-100 Insulin) albuterol sulfate 90 mcg/actuation 2 puff inhalation Q6H PRN 10/29/21 Rx aerosol inhaler shortness of breath or wheezing #8.5 grams Past Med/Surg History Medical History Acute hyperglycemia Suicidal ideation Type I diabetes mellitus Surgical History No significant past surgical history Family History Other Diabetes Social History Smoking Status: Current every day smoker Tobacco Type: Cigarettes Cigarettes Per Day: 1 pack; Second Hand Exposure: No; Hx Alcohol Use: No Hx Substance Use: Yes Prescribed Medications: Marijuana Preferred Language: Sinhala Communication Ability: Effective Visual Impairment: Limited Hearing Ability: Normal Floor Tiling Professional Required: No Beliefs That Will Affect Care: None marital status: Single Current Living Situation: Family and Significant Other Current Living Situation Comment: Cousin current occupational status: disabled How many Children do You have: 0 Feels Safe at Home: Yes Childhood Exposure to Second-Hand Smoke: No caffeine: Yes during the past year weight has: remained stable Dental Care, Regularly: Yes Physical Activity Frequency: Daily Seatbelt Use: always Sunscreen Use: No Do you think of yourself as: straight/heterosexual Sexual Activity: has been sexually active within the last 12 months Gender Identity: Male Assistive Devices: Denture - Upper, Denture - Lower and Glasses Review of Systems Review of Systems: All systems reviewed & are unremarkable except as noted in HPI & below Physical Exam Physical Exam: General: ill in appearance, somnolent but arousable, answers questions appropriately Skin: warm, dry, intact, no rashes or lesions HEENT: NC/AT, PERRL, EOMI, anicteric sclera, conjunctiva without injection, external ear normal to inspection and nontender, nares patent, dry mucus membranes, dentition intact, no oropharyngeal lesions, neck supple, trachea midline, no LAD, no thyromegaly, no JVD Heart: +S1/S2, regular, tachycardic, no m/r/g Lungs: equal air entry bilaterally, no rales/rhonchi/wheezes, tachypnea with Kussmaul's respirations Abd: +BS, soft, NT/ND, no masses/organomegaly/ascites Ext: warm, 2+ pulses in UE/LE bilaterally, no clubbing/cyanosis, 1+ edema of bilateral LE Neuro: somnolent, arousable, moving all extremities on command with equal strength Results & Data Results & Data ([facility]) Vital Signs (Past 12 Hours) Vital Signs Temp Pulse Pulse Resp BP BP Pulse Ox 12/04/21 00:13 132 H 27 H 106/64 99 12/03/21 23:05 36.9 C 135 H 19 108/63 98 12/03/21 22:08 36.4 C L 151 H 36 H 111/63 98 O2 Del Method 12/04/21 00:13 Room Air 12/03/21 23:05 Room Air 12/03/21 22:08 Room Air Laboratory Results Laboratory Results WBC 12.56 K/ul (4.8-10.8) H 12/03/21 22: RBC 3.91 M/uL (4.63-6.08) L 12/03/21: Hgb 13.5 g/dl (14.0-18.0) L 12/03/21 22: POC Hgb 13.3 g/dl (14.0-18.0) L 12/03/21 22:59 Hct 43.9 % (40.1-51.0) 12/03/21 22: POC Hct 39 % (42-52) L 12/03/21 22:59 MCV 112.3 fL (80.0-100.0) H 12/03/21: MCH 34.5 pg (25.0-34.0) H 12/03/21: MCHC 30.8 g/dL (32.0-36.0) L 12/03/21: RDW Std Deviation 57.4 fL (36.4-46.3) H 12/03/21: RDW Coeff of Margarita 13.7 % (11.5-14.5) 12/03/21: Plt Count 375 K/uL (130-400) 12/03/21: MPV 9.5 fL (9.4-12.4) 12/03/21: Immature Gran % (Auto) 2.0 % 12/03/21: Neut % (Auto) 76.6 % 12/03/21: Lymph % (Auto) 14.2 % 12/03/21: Bandera % (Auto) 6.4 % 12/03/21: Eos % (Auto) 0.2 % 12/03/21: Baso % (Auto) 0.6 % 12/03/21: Neut # (Auto) 9.61 K/uL (1.4-6.5) H 12/03/21: Lymph # (Auto) 1.78 K/uL (1.2-3.4) 12/03/21: Bandera # (Auto) 0.81 K/uL (0.24-0.82) 08/26/22 22:27 Eos # (Auto) 0.03 K/uL (0-0.50) 12/03/21 22:27 Baso # (Auto) 0.08 K/uL (0-0.2) 12/03/21 22:27 Immature Gran # (Auto) 0.25 K/uL (0.00-0.02) H 12/03/21 22:27 Macrocytosis Present 12/03/21 22:27 POC pH 6.95 (7.35-7.45) L* 12/03/21 22:59 POC pCO2 12 mmHg (35-46) L 12/03/21 22:59 POC pO2 79 mmHg (80-95) L 12/03/21 22:59 POC HCO3 3 joseph/L (19-24) L 12/03/21 22:59 POC Total CO2 < 5 mmol/L (24-31) L* 12/03/21 22:59 POC Base Excess -29.0 joseph/L (-9-1.8) L 12/03/21 22:59 POC ABG O2 Sat 86.0 % (90-95) L 12/03/21 22:59 VBG pH < 7.00 (7.36-7.41) L 12/03/21 23:13 VBG pCO2 18 mmHg (38-50) L 12/03/21 23:13 VBG pO2 64 mmHg 12/03/21 23:13 VBG HCO3 3 mmol/L 12/03/21 23:13 VBG O2 Saturation 86.1 % 12/03/21 23:13 VBG Base Excess -28.5 mEq/L 12/03/21 23:13 Barometric Pressure [employer] 12/03/21 23:13 POC Sodium 128 mmol/L (135-144) L 12/03/21 22:59 Sodium 132 mmol/L (136-145) L 12/03/21 22:27 POC Potassium 5.1 mmol/L (3.3-5.0) H 12/03/21 22:59 Potassium 5.3 mmol/L (3.5-5.1) H 12/03/21 22:27 POC Chloride 103 mmol/L (101-112) 12/03/21 22:34 Chloride 90 mmol/L (98-107) L 12/03/21 22:27 Carbon Dioxide 2 mmol/L (21-32) L* 12/03/21 22:27 POC Total CO2 6 mmol/L (24-31) L* 12/03/21 22:34 Anion Gap 40 (3-11) H 12/03/21 22: POC Anion Gap 28.0 mmol/L (16-25) H 12/03/21 22:34 POC BUN 28 mg/dl (7-18) H 12/03/21 22:34 BUN 24 mg/dl (6-23) H 12/03/21 22: Creatinine 1.61 mg/dl (0.6-1.4) H 12/03/21 22: POC Creatinine 1.3 mg/dl (0.6-1.3) 12/03/21 22: Est Cr Clr Drug Dosing 56.2 ml/min 12/03/21 22: Est GFR ( Amer) 61.9 ml/min 12/03/21 22: Est GFR (Non-Af Amer) 53.4 ml/min 12/03/21 22: BUN/Creatinine Ratio 14.9 (10-20) 12/03/21 22: Glucose 693 mg/dl (70-99(Fasting)) H* 12/03/21 22:27 POC Glucose > 600 mg/dl (70-99) H* 12/04/21 00:48 POC Glucose (other) > 700 mg/dl (70-99) H* 12/03/21 22: Osmolality 346 mOsm/kg (280-300) H 12/03/21 22: Lactate 1.5 mmol/L (0.4-2.0) 12/03/21 22: Calcium 9.3 mg/dl (8.5-10.1) 12/03/21 22: POC Ioniz Calcium Zach 1.23 mmol/l (1.12-1.32) 12/03/21 22: Phosphorus 8.3 mg/dl (2.5-4.9) H 12/03/21 22: Magnesium 2.7 mg/dl (1.7-2.4) H 12/03/21 22: Total Bilirubin 0.3 mg/dl (0.2-1.0) 12/03/21 22: AST 30 U/L (13-39) 12/03/21 22:27 ALT 38 U/L (7-52) 12/03/21 22:27 Alkaline Phosphatase 148 U/L (34-104) H 12/03/21 22: Troponin I High Sens 10.4 pg/ml (0-20) 12/03/21 22: Total Protein 6.9 gm/dl (6.0-8.3) 12/03/21 22: Albumin 4.0 gm/dl (3.4-5.0) 12/03/21 22: Globulin 2.9 gm/dl (2.5-4.0) 12/03/21 22: Albumin/Globulin Ratio 1.4 (0.9-2) 12/03/21 22:27 SARS-CoV-2, RNA, NAAT NEGATIVE (NEGATIVE) 12/03/21 22:39 Diagnostic Findings CXR - by my interpretation - trachea midline, normal cardiac shadow, no evidence of PNA, edema or PTX ECG Additional Comments: EKG with ST at 139, normal axis, UY=160, QRS=82, MMi=984 Critical Care Time 45 minutes PG Care Time/CCT Total # of Minutes Spent Total Time Spent with Patient: Total time spent is greater than 50% in coordination of care (as documented) at patient's floor/unit and/or counseling patient: Coding Level of Care Code None Diagnoses DKA (diabetic ketoacidosis) E11.10 MDD (major depressive disorder), recurrent episode, moderate F33.1
[2021-12-04] MEDS ORDERED: POTASSIUM CHLORIDE 40 MEQ in SODIUM CHLORIDE 0.45 % 1,000 ML IV SCH (01:30)
[2021-12-04 01:41] LABS: Appearance Urine Clear (Clear); Bacteria Urine Automated Negative (Negative); Bilirubin Urine Negative (Negative); Blood Urine Negative (Negative); Color Urine Yellow; Epithelial Cell Urine Auto 0-5 /lpf (0-5); Glucose Urine UA 3+ (Negative); Ketones Urine 4+ (Negative); Leukocyte Esterase Urine Negative (Negative); Nitrite Urine Negative (Negative); Protein Urine Trace (Negative); RBC Urine Automated 0-4 /hpf (0-4); Specific Gravity Urine 1.021 (1.000-1.030); Urobilinogen Urine Negative (Negative)
[2021-12-04] MEDS ORDERED: PENDING D5 1/2NS+40mEq KCL IVF SCH (02:00)
[2021-12-04 02:06] LABS: Amphetamines+Metham, Urine Neg (Neg); Barbiturates, Urine Neg (Neg); Benzodiazepine, Urine Neg (Neg); Cocaine, Urine Neg (Neg); MDMA (Ecstacy), Urine Neg (Neg); Methadone, Urine Neg (Neg); Opiate, Urine Neg (Neg); Phencyclidine, Urine Neg (Neg)
--- NOTE | 2021-12-04 02:10 | Critical Care Consultation ---
Date of Consultation December 04, 2021 Assessment & Plan (1) DKA (diabetic ketoacidosis): Reason Critically Ill: 36-year-old male with type 1 diabetes presents to the ICU with severe metabolic acidosis from DKA, now on bicarb and insulin drips. Neuro - MDDcontinue home med regimen Cardiac - TachycardiaEKG with sinus tachycardia, likely in the setting of DKA. Continue with fluid resuscitation and expect improvement with improvement of acidosis. Continuous monitoring on telemetry. Respiratory - Tachypneacompensatory, expect to improve with correction of underlying metabolic acidosis. No hypoxemia. Lungs clear to auscultation. Encourage cessation from smoking. Continuous monitoring pulse ox. No indication for advanced airway at this time. GI - DM type I diet when tolerating RENAL/LYTES - AKIcreatinine 1.61 prior baseline 1.2. Suspect this is prerenal in the setting of dehydration due to DKA. - Continue with IV fluid resuscitation, would expect to improve - Maintain maps for greater than 65 -Avoid nephrotoxins and renally adjust medications -Monitor BMP every 4 hour - Condom cathstrict I's and O's ENDO - DKAinitial pH 6.95, positive ketones in urine. Glucose greater than 700 -Continue bicarb drip for now, monitor CBGs every 4 hours -Continue insulin drip and fluids per DKA protocol -We will transition to sliding scale once gap closes HEME - H&H stable monitor routine CBCs ID - No clear indication for infectious process at this time. Trend fever curve LINES/IV ACCESS - Peripheral IVs DVT PROPHYLAXIS - SCDs I have personally spent 40 minutes of critical care time in the direct management of this patient. This is a life/limb threatening event. This includes time spent evaluating patient, direct bedside care, chart review, placing orders, interpretation of diagnostic studies, discussion with consultants, patient, and family members, as well as other required patient management activities. This time is exclusive of all separately billable procedures, and teaching time and separate from and in addition to any other critical care service time. Thank you for allowing us to participate in the care of this patient. Please refer to my attending physician's documentation for any further recommendations. (2) Metabolic acidosis: (3) Smoker: (4) B12 deficiency: (5) Intermittent explosive disorder in adult: (6) MDD (major depressive disorder), recurrent episode, moderate: (7) Type I diabetes mellitus: History of Present Illness Attending Physician: Lara Carey DO History of Present Illness Patient is a 36-year-old male with past medical history DM type I, major depressive disorder, intermittent explosive disorder in adult, tobacco abuse who presented to the emergency department with complaints of 2 days of nausea and vomiting and decreased p.o. intake. Patient stated that he was taking his insulin as prescribed. He was positive for COVID 19 on 11/17 but tested negative today. He denies illness, fevers, congestion or sore throat, cough, shortness of breath, chest pain, palpitations, abdominal pain, diarrhea. He did report 2 days of nausea and vomiting. He denies any changes in gait, swelling in hands or feet, or neurological symptoms. In the emergency department he was found to have severe acidosis of pH 6.95. He was given bicarb and started on insulin drip for DKA. He is now being transferred to ICU for further management at this time Allergies Allergy/AdvReac Type Severity Reaction Status Date / Time codeine Allergy Intermediate Rash Verified 10/26/21 14:29 erythromycin base Allergy Unknown HAPPENED Verified 10/26/21 14:29 A SMALL CHILD Home Medications Medication Instructions Recorded Confirmed Type blood sugar diagnostic (OneTouch #100 ea 07/31/21 10/26/21 Rx Verio test strips) insulin syringe-needle U-100 0.3 #100 ea 07/31/21 10/26/21 Rx mL 31 gauge x 15/64" lancets 33 gauge (OneTouch Delica #100 ea 07/31/21 10/26/21 Rx Lancets) divalproex 500 mg tablet,delayed 500 mg PO DAILY #30 tabs 10/26/21 10/26/21 Rx release insulin aspart U-100 100 unit/mL See Rx Instructions .Route 10/26/21 10/26/21 Rx subcutaneous solution (Novolog .COMPLEX #10 mL U-100 Insulin aspart) insulin glargine 100 unit/mL (3 13 unit (0.13 mL) SC HS #15 mL 10/26/21 10/26/21 Rx mL) subcutaneous pen (Lantus Solostar U-100 Insulin) albuterol sulfate 90 mcg/actuation 2 puff inhalation Q6H PRN 10/29/21 Rx aerosol inhaler shortness of breath or wheezing #8.5 grams Patient History Medical History Acute hyperglycemia Suicidal ideation Type I diabetes mellitus Surgical History No significant past surgical history Family History Other Diabetes Social History Smoking Status: Current every day smoker Tobacco Type: Cigarettes Cigarettes Per Day: 1 pack; Second Hand Exposure: No; Hx Alcohol Use: No Hx Substance Use: Yes Prescribed Medications: Marijuana Preferred Language: Ethiopian Communication Ability: Effective Visual Impairment: Limited Hearing Ability: Normal Aircraft Skin Burnisher Required: No Beliefs That Will Affect Care: None marital status: Single Current Living Situation: Family and Significant Other Current Living Situation Comment: Cousin current occupational status: disabled How many Children do You have: 0 Feels Safe at Home: Yes Childhood Exposure to Second-Hand Smoke: No caffeine: Yes during the past year weight has: remained stable Dental Care, Regularly: Yes Physical Activity Frequency: Daily Seatbelt Use: always Sunscreen Use: No Do you think of yourself as: straight/heterosexual Sexual Activity: has been sexually active within the last 12 months Gender Identity: Male Assistive Devices: Denture - Upper, Denture - Lower and Glasses Review of Systems Review of Systems: All systems reviewed & are unremarkable except as noted in HPI & below Physical Exam Constitutional: WD/WN, vitals as above Eyes: PERRL, conjunctivae normal, anicteric sclerae ENMT: external ear and nose normal, oropharynx normal Neck: trachea midline, no thyromegaly Respiratory: normal respiratory effort, lungs clear to auscultation + tachypneic Cardiovascular: RRR, no murmur, no edema Rate/Rhythm: + tachycardic Heart Sounds: normal S1 and normal S2 Gastrointestinal (Abdomen): normal bowel sounds, soft, nontender, no hepatosplenomegaly Musculoskeletal: no cyanosis or clubbing, extremities motor strength 5/5 Skin: no rashes, warm and dry Neurologic: PERRL, EOMI, accommodation nl, no face palsy, no dysarthria Psychiatric: A+Ox3, euthymic affect Results & Data Results & Data ([facility]) Vital Signs (Past 12 Hours) Vital Signs Temp Pulse Pulse Resp BP BP Pulse Ox 12/04/21 00:13 132 H 27 H 106/64 99 12/03/21 23:05 36.9 C 135 H 19 108/63 98 12/03/21 22:08 36.4 C L 151 H 36 H 111/63 98 O2 Del Method 12/04/21 00:13 Room Air 12/03/21 23:05 Room Air 12/03/21 22:08 Room Air Coding Level of Care Code Critical Care 1st 30-74 mins Diagnoses DKA (diabetic ketoacidosis) E11.10 Metabolic acidosis E87.2 Smoker F17.200 B12 deficiency E53.8 Intermittent explosive disorder in adult F63.81 MDD (major depressive disorder), recurrent episode, moderate F33.1 Type I diabetes mellitus E10.9
[2021-12-04] MEDS ORDERED: SODIUM BICARB 8.4% INJ 50 MEQ/50 ML SYR IV STA (02:24)
[2021-12-04] MEDS ORDERED: SODIUM BICARB 8.4% INJ 50 MEQ/50 ML SYR IV ONE (02:26)
[2021-12-04 02:40] LABS: BUN Creatinine Ratio 15.4 (10-20); Calcium 8.2 mg/dl (8.5-10.1); Creatinine Clr Calc Pharmacy 56.1 ml/min; Est GFR (African American) 64.4 ml/min; Est GFR (Non-African American) 55.5 ml/min; Magnesium 2.6 mg/dl (1.7-2.4); Phosphorus 7.7 mg/dl (2.5-4.9); Potassium 4.3 mmol/L (3.5-5.1)
[2021-12-04 03:28] LABS: iSTAT Allen Test Pass; iSTAT Arterial Blood Gas HCO3 6 meg/L (19-24); iSTAT Arterial Blood Gas pCO2 15 mmHg (35-46); iSTAT Arterial Blood Gas pH 7.21 (7.35-7.45); iSTAT Arterial Blood Gas pO2 125 mmHg (80-95); iSTAT Carbon Dioxide 6 mmol/L (24-31); iSTAT Site R Radial
[2021-12-04] MEDS: D5W AND 1/2NSS + 20MEQ KCL 20 MEQ/1,000 ML BAG IV SCH ×2 (04:22→07:47)
[2021-12-04 05:17] LABS: BUN Creatinine Ratio 15.2 (10-20); Calcium 7.8 mg/dl (8.5-10.1); Creatinine Clr Calc Pharmacy 63.4 ml/min; Est GFR (African American) 74.6 ml/min; Est GFR (Non-African American) 64.4 ml/min; Magnesium 2.3 mg/dl (1.7-2.4); Phosphorus 3.6 mg/dl (2.5-4.9); Potassium 4.8 mmol/L (3.5-5.1)
--- NOTE | 2021-12-04 07:25 | XRay Report ---
SINGLE VIEW CHEST CLINICAL HISTORY: Diabetic ketoacidosis FINDINGS: An AP, portable, upright chest radiograph is compared to study dated 10/25/2021. The cardiom ediastinal silhouette is unremarkable. The lungs and pleural spaces are clear. No pneumothorax is see n. The bony thorax is grossly intact. IMPRESSION: No active disease in the chest. ACT 112: Negative or not required by law. Electronically signed by: Lex Ivan M.D. 12/04/2021 7:23 AM
--- NOTE | 2021-12-04 07:36 | Hospitalist Progress Note ---
Date of Service December 04, 2021 Assessment & Plan (1) DKA (diabetic ketoacidosis): Plan: 36yo male with Type I DM (poorly controlled - last [id number]=12.5 on 07/30/21) presenting with 2 days of nausea, vomiting, abdominal pain and PO intolerance. Patient found to have anion gap metabolic acidosis Elevated blood sugar to 695 as well as Acute kidney injury (Cr of 1.61 from 1.2). Serum osmolality elevated at 346. DKA in Type I diabetic. A1C -Insulin gtt per DKA protocol -2L NSS administered -Continue IVF with 1/2 NSS at 125mL/hr -HCO3 1 amp given in ER, continue with HCO3 gtt at 80mL/hr -Glycemic management consultation appreciated -Jq=947, corrects to 146 for hyperglycemia (2) MDD (major depressive disorder), recurrent episode, moderate: Plan: Patient on Divalproex 500mg po daily for mood Ppx - Lovenox Code - Full Dispo- Admit to MICU Admission and Anticipated Discharge Date Admission Date: December 03, 2021 Results & Data Results & Data ([facility]) Vital Signs (Past 12 Hours) Vital Signs Temp Pulse Pulse Resp BP BP Pulse Ox 12/04/21 06:00 114 H 20 97 12/04/21 06:00 109/63 12/04/21 05:00 112 H 20 97 12/04/21 05:00 100/60 12/04/21 04:00 118 H 20 98 12/04/21 04:00 97.3 F L 94/61 L 12/04/21 03:00 125 H 21 99 12/04/21 02:49 99/60 L 12/04/21 02:49 124 H 20 98 12/04/21 02:00 138 H 25 H 97 12/04/21 01:00 136 H 22 12/04/21 01:00 107/61 12/04/21 01:28 12/04/21 00:50 137 H 12/04/21 00:50 97.3 F L 133 H 25 H 107/64 98 12/04/21 00:13 132 H 27 H 106/64 99 12/03/21 23:05 98.4 F 135 H 19 108/63 98 12/03/21 22:08 97.5 F L 151 H 36 H 111/63 98 O2 Del Method 12/04/21 06:00 12/04/21 06:00 12/04/21 05:00 12/04/21 05:00 12/04/21 04:00 12/04/21 04:00 12/04/21 03:00 12/04/21 02:49 12/04/21 02:49 12/04/21 02:00 12/04/21 01:00 12/04/21 01:00 12/04/21 01:28 Room Air 12/04/21 00:50 12/04/21 00:50 Room Air 12/04/21 00:13 Room Air 12/03/21 23:05 Room Air 12/03/21 22:08 Room Air PG Care Time/CCT Total # of Minutes Spent Total Time Spent with Patient: Total time spent is greater than 50% in coordination of care (as documented) at patient's floor/unit and/or counseling patient: Coding Diagnoses DKA (diabetic ketoacidosis) E11.10 MDD (major depressive disorder), recurrent episode, moderate F33.1
[2021-12-04] MEDS: INSULIN ASPART PER UNIT SC SCH ×2 (07:47→11:48)
[2021-12-04 08:03] LABS: Estimated Average Glucose 278 mg/dl; Hemoglobin A1C 11.3 % (4.5-5.6)
[2021-12-04] MEDS ORDERED: ENOXAPARIN INJ 40 MG/0.4 ML SYR SQ SCH (09:00)
[2021-12-04] MEDS ORDERED: DIVALPROEX DELAY RELEASE 500 MG TAB PO SCH (09:00)
--- NOTE | 2021-12-04 09:23 | Critical Care Progress Note ---
Date of Service December 04, 2021 Assessment & Plan (1) High anion gap metabolic acidosis: (2) DKA (diabetic ketoacidosis): (3) Smoker: (4) MDD (major depressive disorder), recurrent episode, moderate: (5) Type I diabetes mellitus: (6) BERNARD (acute kidney injury): Plan Reason Critically Ill: 36-year-old male with type 1 diabetes presents to the ICU with severe metabolic acidosis from DKA, now on bicarb and insulin drips. Neuro - MDDcontinue home med regimen Cardiac -3 --Type II MS Likely secondary from persistent tachycardia and DKA Initial EKG showed ST depression which had resolved on repeat EKG done 12/04/2021 at 9:21 AM Continue to monitor. 2D echo echo Respiratory - --Current smoker [id number] smoking history Advised to quit GI - DM type I diet when tolerating RENAL/LYTES - --AKIcreatinine 1.61 prior baseline 1.2. Suspect this is prerenal in the setting of dehydration due to DKA. Monitor BUN/creatinine Avoid nephrotoxic medications Strict ins and outs - Condom cathstrict I's and O's ENDO - DKAinitial pH 6.95, positive ketones in urine. Glucose greater than 700 -S/p bicarb drip, continue with BMP every 4 hours -Continue insulin drip and fluids per DKA protocol -We will transition to sliding scale once gap closes HEME - H&H stable monitor routine CBCs ID - No clear indication for infectious process at this time. Trend fever curve --Prophylaxis VTE: Lovenox GI: None Lines: Peripheral Diet: N.p.o. Plan: In/out: +2.9 L, urine output 675. Continue with insulin drip until gap closes Follow-up lactic acid. Troponin elevated patient also has lower extremity edema. I will order 2D echo Repeat EKG Patient has multiple admissions in the past for DKA There has been chronic noncompliance. We will get case management involved for an diabetic education again I have personally spent 38 minutes of critical care time in the direct management of this patient. This is a life/limb threatening event. This includes time spent evaluating patient, direct bedside care, chart review, placing orders, interpretation of diagnostic studies, discussion with consultants, patient, and family members, as well as other required patient management activities. This time is exclusive of all separately billable procedures, and teaching time and separate from and in addition to any other critical care service time. Please note the above document was generated using voice recognition software. It may contain grammatical, syntax or spelling errors. Admission and Anticipated Discharge Date Admission Date: December 03, 2021 Subjective Patient seen and examined at bedside. No acute distress, no adverse events overnight. Denies any abdominal pain, no headache, no nausea, no vomiting States that he is feeling better since coming to the hospital No dizziness Denies any chest pain. No dysuria or diarrhea prior to coming to the hospital Review of Systems Review of Systems: All systems reviewed & are unremarkable except as noted in Subjective Physical Exam Physical Exam: Constitutional: No acute distress HEENT: EOMI, PERRLA Respiratory system: Good air entry bilaterally, no wheeze, rhonchi, mild crackles bilateral lower lobes CVS: S1-S2 positive, no murmurs or gallops, tachycardia Abdomen: Soft, nontender, nondistended, positive bowel sounds x4 Extremities: +2 pulses bilaterally radialis/ dorsalis pedis, no cyanosis, +2 pit ting edema bilateral lower extremity Neuro: Somnolent, oriented x3 Psych: Normal mood and affect G/U: Condom catheter Skin: no rashes, warm and dry Lymphatic: no cervical or axillary lymphadenopathy Results & Data Results & Data ([facility]) Vital Signs (Past 12 Hours) Vital Signs Temp Pulse Pulse Resp BP BP Pulse Ox 12/04/21 09:00 121 H 17 97 12/04/21 09:00 135/86 12/04/21 08:00 110 H 17 97 12/04/21 08:00 130/76 12/04/21 07:00 109 H 19 95 12/04/21 07:00 110/64 12/04/21 08:00 37.0 C 18 110/64 97 12/04/21 08:00 12/04/21 08:00 12/04/21 08:00 114 H 12/04/21 06:00 114 H 20 97 12/04/21 06:00 109/63 12/04/21 05:00 112 H 20 97 12/04/21 05:00 100/60 12/04/21 04:00 118 H 20 98 12/04/21 04:00 36.3 C L 94/61 L 12/04/21 03:00 125 H 21 99 12/04/21 02:49 99/60 L 12/04/21 02:49 124 H 20 98 12/04/21 02:00 138 H 25 H 97 12/04/21 01:00 136 H 22 12/04/21 01:00 107/61 12/04/21 01:28 12/04/21 00:50 137 H 12/04/21 00:50 36.3 C L 133 H 25 H 107/64 98 12/04/21 00:13 132 H 27 H 106/64 99 12/03/21 23:05 36.9 C 135 H 19 108/63 98 12/03/21 22:08 36.4 C L 151 H 36 H 111/63 98 O2 Del Method 12/04/21 09:00 12/04/21 09:00 12/04/21 08:00 12/04/21 08:00 12/04/21 07:00 12/04/21 07:00 12/04/21 08:00 Room Air 12/04/21 08:00 Room Air 12/04/21 08:00 Room Air 12/04/21 08:00 12/04/21 06:00 12/04/21 06:00 12/04/21 05:00 12/04/21 05:00 12/04/21 04:00 12/04/21 04:00 12/04/21 03:00 12/04/21 02:49 12/04/21 02:49 12/04/21 02:00 12/04/21 01:00 12/04/21 01:00 12/04/21 01:28 Room Air 12/04/21 00:50 12/04/21 00:50 Room Air 12/04/21 00:13 Room Air 12/03/21 23:05 Room Air 12/03/21 22:08 Room Air Laboratory Results 12/03/21 22:27 Coding Level of Care Code Critical Care ea addt'l 30 min Diagnoses High anion gap metabolic acidosis E87.2 DKA (diabetic ketoacidosis) E11.10 Smoker F17.200 MDD (major depressive disorder), recurrent episode, moderate F33.1 Type I diabetes mellitus E10.9 BERNARD (acute kidney injury) N17.9 Time Spent (min) 38
[2021-12-04 09:39] LABS: BUN Creatinine Ratio 12.9 (10-20); Calcium 7.9 mg/dl (8.5-10.1); Creatinine Clr Calc Pharmacy 71.9 ml/min; Est GFR (African American) 84.9 ml/min; Est GFR (Non-African American) 73.3 ml/min; Phosphorus 2.6 mg/dl (2.5-4.9); Potassium 4.1 mmol/L (3.5-5.1)
--- NOTE | 2021-12-04 11:07 | XCELERA ---
[id number]
[2021-12-04] MEDS ORDERED: LANTUS PER UNIT CHARGE SQ ONE (12:00)
[2021-12-04 13:41] LABS: BUN Creatinine Ratio 12.1 (10-20); Calcium 7.7 mg/dl (8.5-10.1); Creatinine Clr Calc Pharmacy 83.3 ml/min; Est GFR (African American) 101.5 ml/min; Est GFR (Non-African American) 87.6 ml/min; Magnesium 1.9 mg/dl (1.7-2.4); Phosphorus 2.2 mg/dl (2.5-4.9); Potassium 4.2 mmol/L (3.5-5.1)
--- NOTE | 2021-12-04 14:27 | Pharmacy Report ---
Pharmacy Glycemic Short Note 2 - Date of Service December 04, 2021 - Glycemic Short BSG Results (Last 24 hours): 12/03/21 12/03/21 12/03/21 22:09 22:27 22:34 Glucose 693 H* POC Glucose > 600 H* POC Glucose (other) > 700 H* 12/04/21 12/04/21 12/04/21 00:04 00:48 01:23 Glucose 538 H* POC Glucose > 600 H* > 600 H* POC Glucose (other) 12/04/21 12/04/21 12/04/21 01:49 02:50 03:50 Glucose POC Glucose 487 H* 368 H* 219 H POC Glucose (other) 12/04/21 12/04/21 12/04/21 04:28 04:50 05:49 Glucose 291 H POC Glucose 218 H 197 H POC Glucose (other) 12/04/21 12/04/21 12/04/21 06:47 09:03 09:09 Glucose 155 H POC Glucose 190 H 163 H POC Glucose (other) 12/04/21 12/04/21 12/04/21 11:19 12:16 12:52 Glucose 158 H POC Glucose 169 H 135 H POC Glucose (other) 12/04/21 14:05 Glucose POC Glucose 89 POC Glucose (other) OUTPATIENT ANTIDIABETIC REGIMEN: * Lantus 13 units HS * Novolog CF 35 CR 11 * HbA1C 11.3% (12/03/21) ASSESSMENT: * Mr Horton is a 36 y/o M with a PMH of type 1 DM who presents with severe DKA. * Patient transitioned to diet around noon today with dextrose fluids d/c'ed. * Start Lantus 13 units (effective during last admission) with Novolog parameters from last admission. * Provider okay's insulin drip d/c at 1400 based upon noon labs where slight gap present. Recheck BMP at 1600. PLAN FOR INPATIENT GLYCEMIC CONTROL: * Basal insulin * Lantus 13 units SQ HS * Bolus insulin * NovoLog per scale ACHS or Q6hrs while NPO * Goal Range: Low 110 mg/dL - High 140 mg/dL * Correction Factor: 35 mg/dL/unit * Nutritional / Prandial insulin per carb ratio of 1 unit per 11 grams CHO consumed
--- NOTE | 2021-12-04 15:35 | Electrocardiogram Report ---
Test Reason : Blood Pressure : / mmHG Vent. Rate : 139 BPM Atrial Rate : 139 BPM P-R Int : 138 ms QRS Dur : 082 ms QT Int : 374 ms P-R-T Axes : 065 076 041 degrees QTc Int : 569 ms Poor data quality, interpretation may be adversely affected Sinus tachycardia Otherwise normal ECG When compared with ECG of 25-OCT-2021 16:38, No significant change was found Confirmed by Quang Jaquez ([id number]) on 12/04/2021 3:35:01 PM Referred By: REFERRED SELF Confirmed By:Quang Jaquez
--- NOTE | 2021-12-04 16:05 | Electrocardiogram Report ---
Test Reason : Blood Pressure : / mmHG Vent. Rate : 110 BPM Atrial Rate : 110 BPM P-R Int : 142 ms QRS Dur : 086 ms QT Int : 338 ms P-R-T Axes : 061 055 048 degrees QTc Int : 457 ms Sinus tachycardia Otherwise normal ECG When compared with ECG of 03-DEC-2021 22:37, (unconfirmed) ST no longer depressed in Anterior leads Nonspecific T wave abnormality, improved in Anterolateral leads Confirmed by Quang Jaquez ([id number]) on 12/04/2021 4:05:20 PM Referred By: REFERRED SELF Confirmed By:Quang Jaquez
[2021-12-04] MEDS ORDERED: INSULIN ASPART PER UNIT SC SCH (16:30)
[2021-12-04 16:57] LABS: BUN Creatinine Ratio 12.4 (10-20); Calcium 7.9 mg/dl (8.5-10.1); Creatinine Clr Calc Pharmacy 91.9 ml/min; Est GFR (African American) 114.3 ml/min; Est GFR (Non-African American) 98.6 ml/min; Potassium 3.7 mmol/L (3.5-5.1)
[2021-12-04 17:33] LABS: BUN Creatinine Ratio 10.6 (10-20); Creatinine Clr Calc Pharmacy 85.7 ml/min; Est GFR (African American) 105.1 ml/min; Est GFR (Non-African American) 90.7 ml/min; Phosphorus 2.3 mg/dl (2.5-4.9); Potassium 3.8 mmol/L (3.5-5.1)
--- NOTE | 2021-12-04 18:16 | Discharge Summary ---
Date of Service December 04, 2021 Admission HPI Per Admitting Provider Laron Bradford is a 36yo male with history of Type I DM presenting with 2 days of nausea, vomiting, diarrhea and decreased oral intake. Patient reports he has not been able to tolerate any food for the last two days. He reports compliance with his insulin regimen. Denies fever, chills, chest pain, cough, SOB, abdominal pain. Denies EtOH or substance use Patient did have Covid-19 on 11/17/21, tested NEGATIVE today. In the ER patient tachycardic and tachypneic. He was found to be profoundly acidemic with pH of 6.95, anion gap of 40 and serum HCO3 of 2. Blood sugar elevated to 693 Patient is altered but awake and able to answer some questions. ER Course: NSS x 2 liters HCO3 x 1 amp, HCO3 gtt initiated (150meq in sterile water at 80mL/hr) Regular insulin 6u then insulin gtt Principal Diagnosis DKA elevated troponin due to demand ischemia flavia with resolution Discharge Exam The patient appeared stable Vital signs as documented. Lungs are clear to auscultation and appear unlabored Cardiac exam, Rhythm is regular.. No murmurs, rubs or gallops. Abdominal exam reveals normal bowel sounds, soft non tender, no masses Extremities are nonedematous and both pedal pulses are normal. Neurologic exam is alert and oriented, no focal loss of strength or sensation Skin is without bruises or rashes Psychologically is without concerns for anxiety or depression. Discharge Data Allergies Allergy/AdvReac Type Severity Reaction Status Date / Time codeine Allergy Intermediate Rash Verified 10/26/21 14:29 erythromycin base Allergy Unknown HAPPENED Verified 10/26/21 14:29 A SMALL CHILD Consultations 12/03/21 23:30 ED Decision to Admit Stat 12/04/21 00:50 Consult Adobe Layer Helper Routine Hospital Course (1) DKA (diabetic ketoacidosis): 36yo male with Type I DM (poorly controlled - last BhrA1P=36.5 on 07/30/21) presenting with 2 days of nausea, vomiting, abdominal pain and PO intolerance. Patient found to have anion gap metabolic acidosis Elevated blood sugar to 695 as well as Acute kidney injury (Cr of 1.61 from 1.2). Serum osmolality elevated at 346. DKA in Type I diabetic. gap is closed and pt wants to leave, he states he has insulin at home and instructed to take his glargine tonight elevated troponin is demand ischemia, echo without RWMA, repeat did not change significantly throughout the day recommended follow up with pcp this week and return is feeling poorly -Mr=935, corrects to 146 for hyperglycemia (2) MDD (major depressive disorder), recurrent episode, moderate: Patient on Divalproex 500mg po daily for mood Total Time Total Time Spent Total Time Spent (In Minutes): It required greater than 30 minutes to prepare this patient for discharge Discharge Plan Discharge Items Patient Disposition: Home - Self-Care Reason For Visit: DKA Discharge Diagnosis: diabetic ketoacidosis elevated troponin with non heart attack heart strain Activity: Resume your previous activity Non-emergency contact: Primary Care Provider Call non-emergency contact if: your symptoms worsen Follow-up/Referrals: Carolyn Story MD [Primary Care Provider] - Diet: Carb Count or DM1 Addtl Attending Provider Instructions: please try to keep well hydrated and continue your diabetic medications starting tonight when you get home please have a follow up with your family doctor in one week Pending Studies at Discharge: No Stand-Alone Forms: My Perfect Memory, Smoking Cessation Medications and DC Order Prescriptions: Continued albuterol sulfate 90 mcg/actuation HFA aerosol inhaler 2 puff inhalation Q6H PRN (Reason: shortness of breath or wheezing) Qty: 8.5 3RF insulin glargine [Lantus Solostar U-100 Insulin] 100 unit/mL (3 mL) insulin pen 13 unit SC HS Qty: 15 3RF insulin aspart U-100 [Novolog U-100 Insulin aspart] 100 unit/mL solution See Rx Instructions .ROUTE .COMPLEX Qty: 10 4RF Rx Instructions: PT STATES "USE 2-3 X A DAY". Sliding Scale: Goal 110-140 Carb Ratio 1 unit per 11 grams CHO consumed, correction factor 35mg/dl/unit divalproex 500 mg tablet,delayed release (DR/EC) 500 mg PO DAILY Qty: 30 2RF (DME) lancets [OneTouch Delica Lancets] 33 gauge misc See Rx Instructions .Route Qty: 100 0RF Rx Instructions: As directed (DME) OneTouch Verio test strips Strip See Rx Instructions .Route Qty: 100 1RF Rx Instructions: As directed (DME) insulin syringe-needle U-100 0.3 mL 31 gauge x 15/64" syringe See Rx Instructions .Route Qty: 100 0RF Rx Instructions: As directed Discharge Orders: Discharge Order (Routine); Ordered 12/04/21 Ordered By: Bret Ramírez/Other Patient Handouts: How to Check Your Blood Sugar, Insulin How To Use Where Inject, Types of Insulin, Do You Have Diabetes?, Diabetes Support, Smoking and Diabetes, ED Diet: Diabetes, Treatment of Diabetes Admission Data Admit Date/Time: 12/03/21 23:50 Attending Provider: Bret Linares Admit Provider: Lara Carey Primary Care Provider: Carolyn Story Other Providers: Awa Briggs ; Lara Carey Other Interventions: Discharge Summary Assessment (RN) Last Done: 12/04/21 17:54 Coding Level of Care Code D/C DAY MANAGEMENT >30 MINS Diagnoses DKA (diabetic ketoacidosis) E11.10 MDD (major depressive disorder), recurrent episode, moderate F33.1
== END 2021-12-04 18:25 | disposition home or self-care (01) | DRG 638 ==
LOC: ED 22:07 → SUATTDRO 23:50 → 1E 23:50

== ENCOUNTER 2022-03-14 15:22 | Inpatient (IN) ==
[2022-03-14] MEDS ORDERED: SODIUM CHLORIDE 0.9% 1000ML 2,000 ML IV SCH (16:00)
[2022-03-14] MEDS ORDERED: GLUCOSE 40% GEL 15 GM TUBE PO PRN (16:01)
[2022-03-14] MEDS ORDERED: CARBOHYDRATES FOR HYPOGLYCEMIA PO PRN (16:01)
[2022-03-14] MEDS ORDERED: DKA GOAL RANGE 150-250 mg/dl ONE (16:01)
[2022-03-14] MEDS ORDERED: STAT INSULIN DRIP STA (16:01)
[2022-03-14] MEDS ORDERED: GLUCAGON FOR INJ 1 MG VIAL SQ PRN (16:01)
[2022-03-14] MEDS ORDERED: DEXTROSE 50% 50 ML SYRINGE IV PRN (16:01)
[2022-03-14] MEDS ORDERED: GLUCOSE 10 TAB/TUBE PO PRN (16:01)
[2022-03-14] MEDS ORDERED: SODIUM CHLORIDE 0.9% 1000ML 500 ML IV ONE ×2 (16:02→18:19)
[2022-03-14 16:15] LABS: iSTAT Creatinine 1.2 mg/dl (0.6-1.3); iSTAT Ionized Calcium 1.08 mmol/l (1.12-1.32); iSTAT Potassium 4.7 mmol/L (3.3-5.0)
[2022-03-14] MEDS ORDERED: ONDANSETRON INJ 2 MG/ML 2 ML VIAL IV STA (16:15)
[2022-03-14] MEDS ORDERED: INSULIN REGULAR 250 UNITS in SODIUM CHLORIDE 0.9% 247.5 ML IV SCH (16:15)
[2022-03-14 16:16] LABS: Hematocrit (blood only) 47.2 % (40.1-51.0); Hemoglobin 15.7 g/dl (14.0-18.0); Mean Corpuscular Hemoglobin 33.8 pg (25.0-34.0); Mean Corpuscular Hgb Conc 33.3 g/dL (32.0-36.0); Mean Corpuscular Volume 101.7 fL (80.0-100.0); Mean Platelet Volume 10.1 fL (9.4-12.4); Platelet Count 364 K/uL (130-400); RDW Coefficient of Variation 11.9 % (11.5-14.5); RDW Standard Deviation 44.6 fL (36.4-46.3); Red Blood Count 4.64 M/uL (4.63-6.08); White Blood Count 27.37 K/ul (4.8-10.8)
--- NOTE | 2022-03-14 16:18 | Emergency Department Note ---
Impression & Plan DKA (diabetic ketoacidosis), Nausea & vomiting ED Provider Note Provider: Nj James MD DATE OF SERVICE: 03/14/2022 CHIEF COMPLAINT: Nausea and vomiting, high blood sugar, diabetes HISTORY OF PRESENT ILLNESS: Patient is a 36-year-old gentleman history of GERD, and type 1 diabetes presenting here today reporting developing nausea vomiting and weakness since yesterday. Did not eat much today and vomiting today but did take his insulin this morning. Is not on insulin pump. Denies significant pain but feels very fatigued and weak. States this feels like last time he had DKA. Denies sick contact to his knowledge. Denies significant diarrhea. Denies fever or significant cough. Blood sugar read high at home so came here for evaluation via ambulance REVIEW OF SYSTEMS: A total of 10 review of systems was obtained and negative except as stated above in the HPI. PAST MEDICAL HISTORY: As noted above MEDICATIONS: Reviewed home medications SOCIAL HISTORY: Smoker PHYSICAL EXAM: GENERAL: alert and oriented very fatigued appearing on the stretcher Head: normocephalic and atraumatic EYES: No injection, discharge or icterus. NECK: Trachea midline. ENT: Mucous membranes pink and somewhat tacky/dry LUNGS: Airway patent. No retractions. Breath sounds clear with good air entry bilaterally. HEART: Regular tachycardic rate and rhythm. No chest wall tenderness ABDOMEN: Soft and non-tender, without guarding or rebound. SKIN: Acyanotic, warm, dry, without rashes EXTREMITIES: Without swelling, tenderness or deformity NEUROLOGICAL: No focal deficits following commands moving all extremities. No aphasia. No facial droop or slurred speech. EK bpm sinus tachycardia without acute ST segment elevation. QTc EKG reads 574 however believe this is somewhat inaccurate. Do not believe this represents SVT per CONTINUOUS CARDIAC MONITORING: was ordered and showed a heart rate of 120s-140s bpm in sinus tachycardia Patient's laboratory studies and imaging reviewed. Differential includes DKA, gastroenteritis, food borne illness, infections, appendicitis, diverticulitis, inflammatory bowel disease, obstruction, GI bleed, biliary pathology, volvulus, as well as other pathologies. IMPRESSION/MEDICAL DECISION MAKING: Patient without significant abdominal tenderness. Blood sugar very high and testing consistent with DKA. Has history of similar. Has been using insulin he says but nausea vomiting developed since yesterday. Given IV fluids 2-1/2 L. Started on insulin drip. Left upper arm 18-gauge IV placed myself with ultrasound. Patient tachycardic and appears to be a sinus tach. Likely related to his illness. Data QTC is actually not prolonged and the machine is missed reading the T waves. Cultures and lactate sent although more than likely this is simply DKA. Given his benign abdominal exam doubt acute intra-abdominal process and do not feel additional imaging here would be helpful and doubt appendicitis, perforation, cholecystitis, or colitis. X-ray be obtained to exclude pulmonary etiology but he denies significant symptoms at this is satting well. Very fatigued consistent with DKA. Will require admission and further care. DIAGNOSIS: Diabetic ketoacidosis, nausea and vomiting DISPOSITION: Hospitalist will evaluate Patient was agreeable with this plan. Critical Care I have personally spent 36 minutes of critical care time in the direct management of this patient. This includes bedside care, interpretation of diagnostic studies, and testing, discussion with consultants, patient, and family members, and other required patient management activities. These 36 minutes is in excess of all separately billable procedures. 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 Director Required: No Beliefs That Will Affect Care: None marital status: Single Current Living Situation: Homeless Current Living Situation Comment: Cousin current occupational status: disabled How many Children do You have: 0 Feels Safe at Home: Yes Childhood Exposure to Second-Hand Smoke: No caffeine: Yes during the past year weight has: remained stable Dental Care, Regularly: Yes Physical Activity Frequency: Daily Seatbelt Use: always Sunscreen Use: No Do you think of yourself as: straight/heterosexual Sexual Activity: has been sexually active within the last 12 months Gender Identity: Male Assistive Devices: None Allergies Allergies Allergy/AdvReac Type Severity Reaction Status Date / Time codeine Allergy Intermediate Rash Verified 03/14/22 18:50 erythromycin base Allergy Unknown HAPPENED Verified 03/14/22 18:50 A SMALL CHILD Home Meds Previous Rx's Medication Instructions Recorded blood sugar diagnostic (OneTouch #100 ea 07/31/21 Verio test strips) insulin syringe-needle U-100 0.3 #100 ea 07/31/21 mL 31 gauge x 15/64" lancets 33 gauge (OneTouch Delica #100 ea 07/31/21 Lancets) insulin aspart U-100 100 unit/mL See Rx Instructions .Route 10/26/21 subcutaneous solution (Novolog .COMPLEX #10 mL U-100 Insulin aspart) insulin glargine 100 unit/mL (3 13 unit (0.13 mL) SC HS #15 mL 10/26/21 mL) subcutaneous pen (Lantus Solostar U-100 Insulin) Results & Data (ED) Vital Signs Vital Signs - 24 hr 03/14/22 15:38 03/14/22 15:57 03/14/22 16:37 Temperature 36.6 C Temperature Source Oral Pulse Rate 133 H Pulse Rate [Right Finger] 137 H Respiratory Rate 25 H Respiratory Effort / Characteristics Non-Labored Respiratory Depth Normal Blood Pressure 91/64 L Blood Pressure [Right Arm] 91/64 L Blood Pressure Mean 73 Blood Pressure Mean [Right Arm] 73 Pulse Oximetry 100 100 Oxygen Delivery Method Room Air Room Air Sepsis Recent Fever Within 48 Hours No Sepsis New/Unexplained Change in Mental Status No Sepsis Action Taken by Nursing No Action Required 03/14/22 17:21 Temperature Temperature Source Pulse Rate Pulse Rate [Right Finger] 141 H Respiratory Rate Respiratory Effort / Characteristics Respiratory Depth Blood Pressure Blood Pressure [Right Arm] 92/69 L Blood Pressure Mean Blood Pressure Mean [Right Arm] 76 Pulse Oximetry 98 Oxygen Delivery Method Room Air Sepsis Recent Fever Within 48 Hours Sepsis New/Unexplained Change in Mental Status Sepsis Action Taken by Nursing Laboratory Data Result diagrams: 03/14/22 15:54 03/14/22 15:54 Lab Results 03/14/22 03/14/22 03/14/22 Range/Units 15:36 15:54 15:54 WBC 27.37 H (4.8-10.8) K/ul RBC 4.64 (4.63-6.08) M/uL Hgb 15.7 (14.0-18.0) g/dl POC Hgb (14.0-18.0) g/dl Hct 47.2 (40.1-51.0) % POC Hct (42-52) % MCV 101.7 H (80.0-100.0) fL MCH 33.8 (25.0-34.0) pg MCHC 33.3 (32.0-36.0) g/dL RDW Std Deviation 44.6 (36.4-46.3) fL RDW Coeff of Margarita 11.9 (11.5-14.5) % Plt Count 364 (130-400) K/uL MPV 10.1 (9.4-12.4) fL Immature Gran % (Auto) 1.4 % Neut % (Auto) 88.5 % Lymph % (Auto) 5.0 % [place] % (Auto) 4.6 % Eos % (Auto) 0.1 % Baso % (Auto) 0.4 % Neut # (Auto) 24.25 H (1.4-6.5) K/uL Lymph # (Auto) 1.36 (1.2-3.4) K/uL [place] # (Auto) 1.25 H (0.24-0.82) K/uL Eos # (Auto) 0.02 (0-0.50) K/uL Baso # (Auto) 0.12 (0-0.2) K/uL Immature Gran # (Auto) 0.37 H (0.00-0.02) K/uL VBG pH (7.36-7.41) VBG pCO2 (38-50) mmHg VBG pO2 mmHg VBG HCO3 mmol/L VBG O2 Saturation % VBG Base Excess mEq/L POC Sodium (135-144) mmol/L Sodium 139 (136-145) mmol/L POC Potassium (3.3-5.0) mmol/L Potassium 4.8 (3.5-5.1) mmol/L POC Chloride (101-112) mmol/L Chloride 89 L (98-107) mmol/L Carbon Dioxide 7 L* (21-32) mmol/L POC Total CO2 (24-31) mmol/L Anion Gap 43 H (3-11) POC Anion Gap (16-25) mmol/L POC BUN (7-18) mg/dl BUN 29 H (6-23) mg/dl Creatinine 1.59 H (0.6-1.4) mg/dl POC Creatinine (0.6-1.3) mg/dl Est Cr Clr Drug Dosing 53.0 ml/min Est GFR ( Amer) 62.9 ml/min Est GFR (Non-Af Amer) 54.3 ml/min BUN/Creatinine Ratio 18.2 (10-20) Glucose 663 H* (70-99(Fasting)) mg/dl POC Glucose > 600 H* (70-99) mg/dl POC Glucose (other) (70-99) mg/dl Lactate (0.4-2.0) mmol/L Calcium 10.1 (8.5-10.1) mg/dl POC Ioniz Calcium Zach (1.12-1.32) mmol/l Magnesium 2.6 H (1.7-2.4) mg/dl Total Bilirubin 0.6 (0.2-1.0) mg/dl AST 22 (13-39) U/L ALT 18 (7-52) U/L Alkaline Phosphatase 165 H (34-104) U/L Troponin I High Sens 11.7 (0-20) pg/ml Total Protein 7.8 (6.0-8.3) gm/dl Albumin 4.4 (3.4-5.0) gm/dl Globulin 3.4 (2.5-4.0) gm/dl Albumin/Globulin Ratio 1.3 (0.9-2) Lipase (11-82) U/L Procalcitonin (0-0.5) ng/ml TSH (0.300-4.500) uIu/ml Valproic Acid (50-100) mcg/ml Ethyl Alcohol mg/dL (<10.0) mg/dl SARS-CoV-2 (PCR) (Negative) Influenza Type A (PCR) (Neg) Influenza Type B (PCR) (Neg) RSV (RT-PCR) (Neg) 03/14/22 03/14/22 03/14/22 Range/Units 15:54 15:54 15:54 WBC (4.8-10.8) K/ul RBC (4.63-6.08) M/uL Hgb (14.0-18.0) g/dl POC Hgb (14.0-18.0) g/dl Hct (40.1-51.0) % POC Hct (42-52) % MCV (80.0-100.0) fL MCH (25.0-34.0) pg MCHC (32.0-36.0) g/dL RDW Std Deviation (36.4-46.3) fL RDW Coeff of Margarita (11.5-14.5) % Plt Count (130-400) K/uL MPV (9.4-12.4) fL Immature Gran % (Auto) % Neut % (Auto) % Lymph % (Auto) % [place] % (Auto) % Eos % (Auto) % Baso % (Auto) % Neut # (Auto) (1.4-6.5) K/uL Lymph # (Auto) (1.2-3.4) K/uL [place] # (Auto) (0.24-0.82) K/uL Eos # (Auto) (0-0.50) K/uL Baso # (Auto) (0-0.2) K/uL Immature Gran # (Auto) (0.00-0.02) K/uL VBG pH (7.36-7.41) VBG pCO2 (38-50) mmHg VBG pO2 mmHg VBG HCO3 mmol/L VBG O2 Saturation % VBG Base Excess mEq/L POC Sodium (135-144) mmol/L Sodium (136-145) mmol/L POC Potassium (3.3-5.0) mmol/L Potassium (3.5-5.1) mmol/L POC Chloride (101-112) mmol/L Chloride (98-107) mmol/L Carbon Dioxide (21-32) mmol/L POC Total CO2 (24-31) mmol/L Anion Gap (3-11) POC Anion Gap (16-25) mmol/L POC BUN (7-18) mg/dl BUN (6-23) mg/dl Creatinine (0.6-1.4) mg/dl POC Creatinine (0.6-1.3) mg/dl Est Cr Clr Drug Dosing ml/min Est GFR ( Amer) ml/min Est GFR (Non-Af Amer) ml/min BUN/Creatinine Ratio (10-20) Glucose (70-99(Fasting)) mg/dl POC Glucose (70-99) mg/dl POC Glucose (other) (70-99) mg/dl Lactate (0.4-2.0) mmol/L Calcium (8.5-10.1) mg/dl POC Ioniz Calcium Zach (1.12-1.32) mmol/l Magnesium (1.7-2.4) mg/dl Total Bilirubin (0.2-1.0) mg/dl AST (13-39) U/L ALT (7-52) U/L Alkaline Phosphatase (34-104) U/L Troponin I High Sens (0-20) pg/ml Total Protein (6.0-8.3) gm/dl Albumin (3.4-5.0) gm/dl Globulin (2.5-4.0) gm/dl Albumin/Globulin Ratio (0.9-2) Lipase (11-82) U/L Procalcitonin 0.59 H (0-0.5) ng/ml TSH 0.954 (0.300-4.500) uIu/ml Valproic Acid (50-100) mcg/ml Ethyl Alcohol mg/dL < 10.0 (<10.0) mg/dl SARS-CoV-2 (PCR) (Negative) Influenza Type A (PCR) (Neg) Influenza Type B (PCR) (Neg) RSV (RT-PCR) (Neg) 03/14/22 03/14/22 03/14/22 Range/Units 15:54 15:56 15:58 WBC (4.8-10.8) K/ul RBC (4.63-6.08) M/uL Hgb (14.0-18.0) g/dl POC Hgb 17.0 (14.0-18.0) g/dl Hct (40.1-51.0) % POC Hct 50 (42-52) % MCV (80.0-100.0) fL MCH (25.0-34.0) pg MCHC (32.0-36.0) g/dL RDW Std Deviation (36.4-46.3) fL RDW Coeff of Margarita (11.5-14.5) % Plt Count (130-400) K/uL MPV (9.4-12.4) fL Immature Gran % (Auto) % Neut % (Auto) % Lymph % (Auto) % [place] % (Auto) % Eos % (Auto) % Baso % (Auto) % Neut # (Auto) (1.4-6.5) K/uL Lymph # (Auto) (1.2-3.4) K/uL [place] # (Auto) (0.24-0.82) K/uL Eos # (Auto) (0-0.50) K/uL Baso # (Auto) (0-0.2) K/uL Immature Gran # (Auto) (0.00-0.02) K/uL VBG pH (7.36-7.41) VBG pCO2 (38-50) mmHg VBG pO2 mmHg VBG HCO3 mmol/L VBG O2 Saturation % VBG Base Excess mEq/L POC Sodium 135 (135-144) mmol/L Sodium (136-145) mmol/L POC Potassium 4.7 (3.3-5.0) mmol/L Potassium (3.5-5.1) mmol/L POC Chloride 100 L (101-112) mmol/L Chloride (98-107) mmol/L Carbon Dioxide (21-32) mmol/L POC Total CO2 10 L (24-31) mmol/L Anion Gap (3-11) POC Anion Gap 30.0 H (16-25) mmol/L POC BUN 32 H (7-18) mg/dl BUN (6-23) mg/dl Creatinine (0.6-1.4) mg/dl POC Creatinine 1.2 (0.6-1.3) mg/dl Est Cr Clr Drug Dosing ml/min Est GFR ( Amer) ml/min Est GFR (Non-Af Amer) ml/min BUN/Creatinine Ratio (10-20) Glucose (70-99(Fasting)) mg/dl POC Glucose (70-99) mg/dl POC Glucose (other) 640 H* (70-99) mg/dl Lactate (0.4-2.0) mmol/L Calcium (8.5-10.1) mg/dl POC Ioniz Calcium Zach 1.08 L (1.12-1.32) mmol/l Magnesium (1.7-2.4) mg/dl Total Bilirubin (0.2-1.0) mg/dl AST (13-39) U/L ALT (7-52) U/L Alkaline Phosphatase (34-104) U/L Troponin I High Sens (0-20) pg/ml Total Protein (6.0-8.3) gm/dl Albumin (3.4-5.0) gm/dl Globulin (2.5-4.0) gm/dl Albumin/Globulin Ratio (0.9-2) Lipase 22 (11-82) U/L Procalcitonin (0-0.5) ng/ml TSH (0.300-4.500) uIu/ml Valproic Acid < 10 L (50-100) mcg/ml Ethyl Alcohol mg/dL (<10.0) mg/dl SARS-CoV-2 (PCR) (Negative) Influenza Type A (PCR) (Neg) Influenza Type B (PCR) (Neg) RSV (RT-PCR) (Neg) 03/14/22 03/14/22 03/14/22 Range/Units 15:59 16:05 16:25 WBC (4.8-10.8) K/ul RBC (4.63-6.08) M/uL Hgb (14.0-18.0) g/dl POC Hgb (14.0-18.0) g/dl Hct (40.1-51.0) % POC Hct (42-52) % MCV (80.0-100.0) fL MCH (25.0-34.0) pg MCHC (32.0-36.0) g/dL RDW Std Deviation (36.4-46.3) fL RDW Coeff of Margarita (11.5-14.5) % Plt Count (130-400) K/uL MPV (9.4-12.4) fL Immature Gran % (Auto) % Neut % (Auto) % Lymph % (Auto) % [place] % (Auto) % Eos % (Auto) % Baso % (Auto) % Neut # (Auto) (1.4-6.5) K/uL Lymph # (Auto) (1.2-3.4) K/uL [place] # (Auto) (0.24-0.82) K/uL Eos # (Auto) (0-0.50) K/uL Baso # (Auto) (0-0.2) K/uL Immature Gran # (Auto) (0.00-0.02) K/uL VBG pH 7.09 L (7.36-7.41) VBG pCO2 25 L (38-50) mmHg VBG pO2 70 mmHg VBG HCO3 8 mmol/L VBG O2 Saturation 92.7 % VBG Base Excess -20.7 mEq/L POC Sodium (135-144) mmol/L Sodium (136-145) mmol/L POC Potassium (3.3-5.0) mmol/L Potassium (3.5-5.1) mmol/L POC Chloride (101-112) mmol/L Chloride (98-107) mmol/L Carbon Dioxide (21-32) mmol/L POC Total CO2 (24-31) mmol/L Anion Gap (3-11) POC Anion Gap (16-25) mmol/L POC BUN (7-18) mg/dl BUN (6-23) mg/dl Creatinine (0.6-1.4) mg/dl POC Creatinine (0.6-1.3) mg/dl Est Cr Clr Drug Dosing ml/min Est GFR ( Amer) ml/min Est GFR (Non-Af Amer) ml/min BUN/Creatinine Ratio (10-20) Glucose (70-99(Fasting)) mg/dl POC Glucose (70-99) mg/dl POC Glucose (other) (70-99) mg/dl Lactate 3.3 H* (0.4-2.0) mmol/L Calcium (8.5-10.1) mg/dl POC Ioniz Calcium Zach (1.12-1.32) mmol/l Magnesium (1.7-2.4) mg/dl Total Bilirubin (0.2-1.0) mg/dl AST (13-39) U/L ALT (7-52) U/L Alkaline Phosphatase (34-104) U/L Troponin I High Sens (0-20) pg/ml Total Protein (6.0-8.3) gm/dl Albumin (3.4-5.0) gm/dl Globulin (2.5-4.0) gm/dl Albumin/Globulin Ratio (0.9-2) Lipase (11-82) U/L Procalcitonin (0-0.5) ng/ml TSH (0.300-4.500) uIu/ml Valproic Acid (50-100) mcg/ml Ethyl Alcohol mg/dL (<10.0) mg/dl SARS-CoV-2 (PCR) NEGATIVE (Negative) Influenza Type A (PCR) Negative (Neg) Influenza Type B (PCR) Negative (Neg) RSV (RT-PCR) Negative (Neg) Administered Medications Discontinued Medications Sodium Chloride (Nss 1000ml) 2,000 mls @ 999 mls/hr IV .Q2H1M RISSA Stop: 03/14/22 18:00 Last Infusion: 03/14/22 18:34 Dose: 0 mls/hr Documented By: Admin: 03/14/22 16:29 Dose: 999 mls/hr Documented By: CARY Sodium Chloride (Nss 1000ml) 500 mls @ 999 mls/hr IV .Q31M ONE Stop: 03/14/22 16:32 Last Infusion: 03/14/22 17:52 Dose: 0 mls/hr Documented By: Admin: 03/14/22 17:16 Dose: 999 mls/hr Documented By: CARY Insulin Human Regular 250 (units/ Sodium Chloride) 250 mls @ 7.2 mls/hr IV .Q24H RISSA; Protocol Stop: 04/13/22 16:14 Last Titration: 03/14/22 20:41 Dose: 7.2 unit/hr, 7.2 mls/hr Documented By: CARY Co-signed By: MOISE Titration: 03/14/22 19:44 Dose: 7.2 unit/hr, 7.2 mls/hr Documented By: CARY Co-signed By: THOMAS Titration: 03/14/22 18:44 Dose: 7.2 unit/hr, 7.2 mls/hr Documented By: CARY Co-signed By: AL Titration: 03/14/22 17:58 Dose: 6 unit/hr, 6 mls/hr Documented By: CARY Co-signed By: BELEN Admin: 03/14/22 16:32 Dose: 6 unit/hr, 6 mls/hr Documented By: CARY Co-signed By: BELEN Lactated Ringer's (Lr) 500 mls @ 999 mls/hr IV .Q31M ONE Stop: 03/14/22 18:40 Last Admin: 03/14/22 18:35 Dose: Not Given Documented By: CARY Sodium Chloride (Nss 1000ml) 500 mls @ 999 mls/hr IV .Q31M ONE Stop: 03/14/22 18:49 Last Infusion: 03/14/22 20:05 Dose: 0 mls/hr Documented By: Admin: 03/14/22 19:34 Dose: 999 mls/hr Documented By: CARY Miscellaneous (Stat Insulin Drip) 1 each N/A NOW STA Stop: 03/14/22 16:02 Last Admin: 03/14/22 16:48 Dose: Not Given Documented By: CARY Ondansetron HCl (Ondansetron Inj 2 Mg/Ml 2 Ml Vial) 4 mg IV NOW STA Stop: 03/14/22 16:16 Last Admin: 03/14/22 16:30 Dose: 4 mg Documented By: CARY Imaging Data Radiologist's Impression: Chest X-Ray 03/14/22 15:49 XR chest 1V portable HISTORY: 36 years-old Male weakness acute weakness COMPARISON: Chest radiograph 12/03/2021 TECHNIQUE: AP view of the chest FINDINGS: Cardiomediastinal and hilar silhouettes are within normal limits. No pneumothorax, pleural effusion, airspace consolidation or overt pulmonary edema. Developmental partial bony fusion of the right first and second ribs anteriorly. The bones of the chest appear grossly intact. IMPRESSION: No acute process. ACT 112: Negative or not required by law. The above report was generated using voice recognition software. It may contain grammatical, syntax or spelling errors. Electronically signed by: Elpidio Shafer M.D. 03/14/2022 5:17 PM Discharge Plan Visit Data Chief Complaint: Hyperglycemia Stated Complaint: HYPERGLYCEMIA, WEAKNESS, CHEST PAIN ED Provider: Nj James Discharge Problem: DKA (diabetic ketoacidosis), Nausea & vomiting Patient Disposition: Admitted As Inpatient Discharge Instructions Interventions: ED Discharge Assessment Last Done: 03/14/22 17:39 : DKA (diabetic ketoacidosis) Qualifiers: Diabetes mellitus type: type 1 Diabetes mellitus complication detail: without coma Qualified Code(s): E10.10 - Type 1 diabetes mellitus with ketoacidosis without coma Nausea & vomiting Qualifiers: Vomiting type: unspecified Qualified Code(s): R11.2 - Nausea with vomiting, unspecified
[2022-03-14 16:45] LABS: Basophils # (auto) 0.12 K/uL (0-0.2); Basophils % (auto) 0.4 %; Eosinophils # (auto) 0.02 K/uL (0-0.50); Eosinophils % (auto) 0.1 %; Immature Granulocytes # (auto) 0.37 K/uL (0.00-0.02); Immature Granulocytes % (auto) 1.4 %; Lymphocytes # (auto) 1.36 K/uL (1.2-3.4); Monocytes # (auto) 1.25 K/uL (0.24-0.82); Monocytes % (auto) 4.6 %; Neutrophils # (auto) 24.25 K/uL (1.4-6.5); Neutrophils % (auto) 88.5 %
[2022-03-14 16:52] LABS: Troponin I High Sensitivity 11.7 pg/ml (0-20)
[2022-03-14 17:09] LABS: Base Excess VBG -20.7 mEq/L; HCO3 VBG 8 mmol/L; Oxygen Saturation VBG 92.7 %; PCO2 VBG 25 mmHg (38-50); PO2 VBG 70 mmHg; pH VBG 7.09 (7.36-7.41)
[2022-03-14 17:10] LABS: Influenza A virus by PCR Negative (Neg); Influenza B virus by PCR Negative (Neg); RSV by PCR Negative (Neg); SARS CoV2 RNA(COVID-19) Ceph NEGATIVE (Negative)
[2022-03-14 17:13] LABS: Albumin Globulin Ratio 1.3 (0.9-2); Albumin Level 4.4 gm/dl (3.4-5.0); BUN Creatinine Ratio 18.2 (10-20); Bilirubin,Total 0.6 mg/dl (0.2-1.0); Calcium 10.1 mg/dl (8.5-10.1); Est GFR (African American) 62.9 ml/min; Est GFR (Non-African American) 54.3 ml/min; Globulin 3.4 gm/dl (2.5-4.0); Magnesium 2.6 mg/dl (1.7-2.4); Potassium 4.8 mmol/L (3.5-5.1); Total Protein 7.8 gm/dl (6.0-8.3)
--- NOTE | 2022-03-14 17:15 | Electrocardiogram Report ---
Test Reason : Blood Pressure : / mmHG Vent. Rate : 132 BPM Atrial Rate : 131 BPM P-R Int : 000 ms QRS Dur : 080 ms QT Int : 388 ms P-R-T Axes : 000 094 054 degrees QTc Int : 574 ms Poor data quality, interpretation may be adversely affected Sinus tachycardia Rightward axis Borderline ECG When compared with ECG of 04-DEC-2021 09:34, T wave amplitude has increased in Inferior leads Confirmed by Kannan Taylor ([id number]) on 03/14/2022 5:15:20 PM Referred By: Confirmed By:Kannan Taylor
--- NOTE | 2022-03-14 17:18 | XRay Report ---
XR chest 1V portable HISTORY: 36 years-old Male weakness acute weakness COMPARISON: Chest radiograph 12/03/2021 TECHNIQUE: AP view of the chest FINDINGS: Cardiomediastinal and hilar silhouettes are within normal limits. No pneumothorax, pleural effusion, airspace consolidation or overt pulmonary edema. Developmental partial bony fusion of the right first and second ribs anteriorly. The bones of the chest appear grossly intact. IMPRESSION: No acute process. ACT 112: Negative or not required by law. The above report was generated using voice recognition software. It may contain grammatical, syntax o r spelling errors. Electronically signed by: Elpidio Shafer M.D. 03/14/2022 5:17 PM
--- NOTE | 2022-03-14 17:24 | History & Physical Report ---
Date of Service March 14, 2022 Assessment & Plan (1) DKA (diabetic ketoacidosis): Plan: - DKA, suspect due to noncompliance. Although is WBC is up to 27, procal minimally elevated to 0.59, his CXR is without evidence of infectious process and his abdominal exam is benign. trop 11, EKG w/o territorial ST segment or T wave changes. - Lipase, UA, UDS, EtOH pending. - PAPERHANGER PIPE--> 15 units Lantus qHS + SSI (CF 25 for sugar > 150 at meals, CR 1:8) - No missed insulin doses. No recent alcohol or drug use. - Presenting with glucose 640, AG 43, bicarb 7, lactate 3.3. - vBG: ph 7.09 / CO2 25 /O2 70 / bicarb 8 - K 4.8, Mg 2.6 - Admit to PCU with insulin drip, per protocol. - Check BSG every hour. - Goal BSG range [id number]. Add D5 to fluids when glucose < 250 - Pharmacy consulted to assist with transition to subcu insulin - BMP, VBG's, phosphorus, mag levels every 4 hours and daily. - Repeat lactate to ensure downtrend. - NPO for now. DM1 diet when transitioning from IV to SC insulin. (2) BERNARD (acute kidney injury): Plan: - Cr 1.59, baseline 1.2 - Likely secondary to severe dehydration in setting of DKA. - Will be receiving IVF per DKA protocol; repeat BMP Q4h/Am, follow kidney function. - Avoid nephrotoxins, renally dose meds as able. (3) Type I diabetes mellitus: Plan: - PAPERHANGER PIPE --> 15 units Lantus qHS, SSI: goal 110-140, CR 1:11, CF 35 - No missed insulin doses. - A1c in November 18.3, repeat on admission. - Has been trying to get established with endocrine as outpt for better management. (4) Diabetic peripheral neuropathy: Plan: - Continue gabapentin. (5) MDD (major depressive disorder), recurrent episode, moderate: Plan: - Previously on divalproex, patient states he is no longer taking. - Checking level. (6) GERD (gastroesophageal reflux disease): Plan: - Continue Protonix daily. (7) Smoker: Plan: - States he is no longer taking Chantix, ? overall medication compliance as he denies taking any medications besides insulin despite having several medications recently filled at PCP appointments.. - He is smoking cigarettes "here and there", declines a nicotine patch. Encouraged to alert staff if he changes his mind on this. Plan - Admit to PCU. - SCDs for VTE ppx. - Full Code. History of Present Illness Primary Care Provider: Carolyn Story MD Laron Horton is a 36-year-old male with past medical history of type 1 diabetes w/ peripheral neuropathy, tobacco use, and GERD who is presenting today with nausea, vomiting, and general weakness over the past day. Seemingly developed out of nowhere yesterday morning and that has made it impossible for him to eat or drink anything, although he has been compliant with his insulin. His regimen consists of Lantus 15 units at night with SSI insulin with meals and states he did take his evening dose of Lantus last night and meal coverage throughout the day. He did check his blood sugar at home, was too high to be read, but then to another provider reported that he ran out of meter strips several days ago so there is concern that he may have been unable to check sugars and give himself sliding scale insulin. He is not having any abdominal pain but just feels overall exhausted. He notes this feels similar to when he has been in DKA in the past and so he decided to present to the ED for further evaluation. He has not had any fever, chills, body aches, cough, shortness of breath, headache, abdominal pain, chest pain, diarrhea. On presentation in the ED he is borderline hypotensive 91/64 and tachycardic to 130s, and tachypneic. Afebrile, 100% on RA. His POC glucose is 640, AG 43, bicarb 7, vBG 7.09/25/70/8, K 4.8, Mg 2.6, lactate 3.3. Creatinine is mildly elevated as well at 1.59, baseline 1.2. He received 2.5 L NSS in ED and started on insulin drip. He will be admitted to the PCU for DKA. Allergies Allergy/AdvReac Type Severity Reaction Status Date / Time codeine Allergy Intermediate Rash Verified 02/01/22 13:35 erythromycin base Allergy Unknown HAPPENED Verified 02/01/22 13:35 A SMALL CHILD Home Medications Medication Instructions Recorded Confirmed Type blood sugar diagnostic (OneTouch #100 ea 07/31/21 02/01/22 Rx Verio test strips) insulin syringe-needle U-100 0.3 #100 ea 07/31/21 02/01/22 Rx mL 31 gauge x 15/64" lancets 33 gauge (OneTouch Delica #100 ea 07/31/21 02/01/22 Rx Lancets) divalproex 500 mg tablet,delayed 500 mg PO DAILY #30 tabs 10/26/21 02/01/22 Rx release insulin aspart U-100 100 unit/mL See Rx Instructions .Route 10/26/21 02/01/22 Rx subcutaneous solution (Novolog .COMPLEX #10 mL U-100 Insulin aspart) insulin glargine 100 unit/mL (3 13 unit (0.13 mL) SC HS #15 mL 10/26/21 02/01/22 Rx mL) subcutaneous pen (Lantus Solostar U-100 Insulin) albuterol sulfate 90 mcg/actuation 2 puff inhalation Q6H PRN 10/29/21 02/01/22 Rx aerosol inhaler shortness of breath or wheezing #8.5 grams omeprazole 20 mg capsule,delayed 20 mg PO DAILY #30 caps 01/04/22 02/01/22 Rx release gabapentin 100 mg capsule 100 mg PO TID PRN neuropathy #90 02/01/22 02/01/22 Rx caps varenicline 0.5 mg (11)-1 mg (42) See Rx Instructions .Route 02/01/22 02/01/22 Rx tablets in a dose pack (Chantix .COMPLEX #53 ea Starting Month Box) varenicline 1 mg tablet 1 mg PO BID #56 tabs 02/01/22 02/01/22 Rx Past Med/Surg History Medical History Acute hyperglycemia Suicidal ideation Surgical History No significant past surgical history Family History Other Diabetes Social History Smoking Status: Current every day smoker Tobacco Type: Cigarettes Cigarettes Per Day: 1 pack; Second Hand Exposure: No; Hx Alcohol Use: No Hx Substance Use: No Preferred Language: Marshallese Communication Ability: Effective Visual Impairment: Limited Hearing Ability: Normal Furnace Reliner Required: No Beliefs That Will Affect Care: None marital status: Single Current Living Situation: Homeless Current Living Situation Comment: Cousin current occupational status: disabled How many Children do You have: 0 Feels Safe at Home: Yes Childhood Exposure to Second-Hand Smoke: No caffeine: Yes during the past year weight has: remained stable Dental Care, Regularly: Yes Physical Activity Frequency: Daily Seatbelt Use: always Sunscreen Use: No Do you think of yourself as: straight/heterosexual Sexual Activity: has been sexually active within the last 12 months Gender Identity: Male Assistive Devices: None Review of Systems Review of Systems: Constitutional: No fever/chills, weakness, fatigue, myalgias, anorexia, night sweats Eyes: No diplopia, no worsening or blurred vision ENT: normal hearing, no trouble swallowing Respiratory: No cough, sputum, dyspnea at rest or on exertion Cardiovascular: No chest pain, tightness or palpitations Abdomen: nausea, vomiting overnight; No pain, diarrhea or constipation : Denies dysuria, hematuria, increased urgency/frequency, urinary retention Musculoskeletal: No joint pain, calf pain, swelling Neurologic: No weakness, numbness/tingling, or balance problems Psychiatric: No anxiety or depression Skin: No rash or itch Physical Exam Physical Exam: General: drowsy but alert, no acute distress Head: Normocephalic, atraumatic ENT: PERRL, EOMI, no pharyngeal exudate, mucous membranes moist Chest: Clear to auscultation, on room air, no adventitious breath sounds Cardiac: tachycardic rate and rhythm, no murmur, no JVD, normal peripheral pulses, good capillary refill Abdominal: NABS x 4 quadrants, soft, nontender to palpation, no rebound, guarding or tenderness Extremities: Normal inspection, no peripheral edema or erythema, calfs nontender to palpation Psych: Normal mood and affect Neuro: AAO x 3, strength intact bilaterally and rated 5/5, no motor deficits, speech is clear, no peripheral sensory deficits Skin: no rash or erythema Results & Data Results & Data ([facility]) Vital Signs (Past 12 Hours) Vital Signs Temp Pulse Pulse Resp BP BP Pulse Ox 03/14/22 17:21 141 H 92/69 L 98 03/14/22 16:37 100 03/14/22 15:57 137 H 91/64 L 03/14/22 15:38 36.6 C 133 H 25 H 91/64 L 100 O2 Del Method 03/14/22 17:21 Room Air 03/14/22 16:37 Room Air 03/14/22 15:57 03/14/22 15:38 Room Air Laboratory Results Abnormal lab results 03/14/22 03/14/22 03/14/22 Range/Units 15:54 15:54 15:54 WBC 27.37 H (4.8-10.8) K/ul MCV 101.7 H (80.0-100.0) fL Neut # (Auto) 24.25 H (1.4-6.5) K/uL [place] # (Auto) 1.25 H (0.24-0.82) K/uL Immature Gran # (Auto) 0.37 H (0.00-0.02) K/uL VBG pH (7.36-7.41) VBG pCO2 (38-50) mmHg POC Chloride (101-112) mmol/L Chloride 89 L (98-107) mmol/L Carbon Dioxide 7 L* (21-32) mmol/L POC Total CO2 (24-31) mmol/L Anion Gap 43 H (3-11) POC Anion Gap (16-25) mmol/L POC BUN (7-18) mg/dl BUN 29 H (6-23) mg/dl Creatinine 1.59 H (0.6-1.4) mg/dl Glucose 663 H* (70-99(Fasting)) mg/dl POC Glucose (other) (70-99) mg/dl Lactate (0.4-2.0) mmol/L POC Ioniz Calcium Zach (1.12-1.32) mmol/l Magnesium 2.6 H (1.7-2.4) mg/dl Alkaline Phosphatase 165 H (34-104) U/L Procalcitonin 0.59 H (0-0.5) ng/ml 03/14/22 03/14/22 03/14/22 Range/Units 15:58 16:05 16:25 WBC (4.8-10.8) K/ul MCV (80.0-100.0) fL Neut # (Auto) (1.4-6.5) K/uL [place] # (Auto) (0.24-0.82) K/uL Immature Gran # (Auto) (0.00-0.02) K/uL VBG pH 7.09 L (7.36-7.41) VBG pCO2 25 L (38-50) mmHg POC Chloride 100 L (101-112) mmol/L Chloride (98-107) mmol/L Carbon Dioxide (21-32) mmol/L POC Total CO2 10 L (24-31) mmol/L Anion Gap (3-11) POC Anion Gap 30.0 H (16-25) mmol/L POC BUN 32 H (7-18) mg/dl BUN (6-23) mg/dl Creatinine (0.6-1.4) mg/dl Glucose (70-99(Fasting)) mg/dl POC Glucose (other) 640 H* (70-99) mg/dl Lactate 3.3 H* (0.4-2.0) mmol/L POC Ioniz Calcium Zach 1.08 L (1.12-1.32) mmol/l Magnesium (1.7-2.4) mg/dl Alkaline Phosphatase (34-104) U/L Procalcitonin (0-0.5) ng/ml Diagnostic Findings Chest X-Ray 03/14/22 15:49 XR chest 1V portable HISTORY: 36 years-old Male weakness acute weakness COMPARISON: Chest radiograph 12/03/2021 TECHNIQUE: AP view of the chest FINDINGS: Cardiomediastinal and hilar silhouettes are within normal limits. No pneumothorax, pleural effusion, airspace consolidation or overt pulmonary edema. Developmental partial bony fusion of the right first and second ribs anteriorly. The bones of the chest appear grossly intact. IMPRESSION: No acute process. ACT 112: Negative or not required by law. The above report was generated using voice recognition software. It may contain grammatical, syntax or spelling errors. Electronically signed by: Elpidio Shafer M.D. 03/14/2022 5:17 PM ECG Additional Comments: Poor data quality, interpretation may be adversely affected Sinus tachycardia Rightward axis Borderline ECG When compared with ECG of 04-DEC-2021 09:34, T wave amplitude has increased in Inferior leads Confirmed by Kannan Taylor ([id number]) on 03/14/2022 5:15:20 PM PG Care Time/CCT Total # of Minutes Spent Total Time Spent with Patient: Total time spent is greater than 50% in coordination of care (as documented) at patient's floor/unit and/or counseling patient: Coding Level of Care Code 01145 Initial Inpt Care Lvl 3 Diagnoses DKA (diabetic ketoacidosis) E10.10 Diabetes mellitus complication detail: without coma Diabetes mellitus type: type 1 BERNARD (acute kidney injury) N17.9 Type I diabetes mellitus E10.9 Diabetic peripheral neuropathy E11.42 MDD (major depressive disorder), recurrent episode, moderate F33.1 GERD (gastroesophageal reflux disease) K21.9 Smoker F17.200 (1) DKA (diabetic ketoacidosis) Diabetes mellitus complication detail: without coma Diabetes mellitus type: type 1 Qualified Code(s): E10.10 - Type 1 diabetes mellitus with ketoacidosis without coma
[2022-03-14] MEDS ORDERED: LACTATED RINGER'S 500 ML IV ONE (18:10)
--- NOTE | 2022-03-15 13:35 | Discharge Summary ---
Date of Service March 15, 2022 Admission HPI Per Admitting Provider Laron Horton is a 36-year-old male with past medical history of type 1 diabetes w/ peripheral neuropathy, tobacco use, and GERD who is presenting today with nausea, vomiting, and general weakness over the past day. Seemingly developed out of nowhere yesterday morning and that has made it impossible for him to eat or drink anything, although he has been compliant with his insulin. His regimen consists of Lantus 15 units at night with SSI insulin with meals and states he did take his evening dose of Lantus last night and meal coverage throughout the day. He did check his blood sugar at home, was too high to be read, but then to another provider reported that he ran out of meter strips several days ago so there is concern that he may have been unable to check sugars and give himself sliding scale insulin. He is not having any abdominal pain but just feels overall exhausted. He notes this feels similar to when he has been in DKA in the past and so he decided to present to the ED for further evaluation. He has not had any fever, chills, body aches, cough, shortness of breath, headache, abdominal pain, chest pain, diarrhea. On presentation in the ED he is borderline hypotensive 91/64 and tachycardic to 130s, and tachypneic. Afebrile, 100% on RA. His POC glucose is 640, AG 43, bicarb 7, vBG 7.09/25/70/8, K 4.8, Mg 2.6, lactate 3.3. Creatinine is mildly elevated as well at 1.59, baseline 1.2. He received 2.5 L NSS in ED and started on insulin drip. He will be admitted to the PCU for DKA. Principal Diagnosis AMA Diabetic ketoacidosis Discharge Exam Patient left AMA after I became off shift I did not examine the patient at time of discharge Discharge Data Allergies Allergy/AdvReac Type Severity Reaction Status Date / Time codeine Allergy Intermediate Rash Verified 03/14/22 18:50 erythromycin base Allergy Unknown HAPPENED Verified 03/14/22 18:50 A SMALL CHILD Consultations 03/14/22 17:22 ED Decision to Admit Stat Hospital Course (1) DKA (diabetic ketoacidosis): - DKA, suspect due to noncompliance. Although is WBC is up to 27, procal minimally elevated to 0.59, his CXR is without evidence of infectious process and his abdominal exam is benign. trop 11, EKG w/o territorial ST segment or T wave changes. - Patient was placed on an insulin drip however wished to leave AMA left from the emergency department. (2) BERNARD (acute kidney injury): - Cr 1.59, baseline 1.2 - Likely secondary to severe dehydration in setting of DKA. Patient did receive IV fluids (3) Type I diabetes mellitus: -. - A1c in November 18.3, repeat on admission. - (4) Diabetic peripheral neuropathy: - Continue gabapentin. (5) MDD (major depressive disorder), recurrent episode, moderate: - Previously on divalproex, patient states he is no longer taking. (6) GERD (gastroesophageal reflux disease): - Continue Protonix daily. (7) Smoker: - States he is no longer taking Chantix, ? overall medication compliance as he denies taking any medications besides insulin despite having several medications recently filled at PCP appointments.. - He is smoking cigarettes "here and there", declines a nicotine patch. Encouraged to alert staff if he changes his mind on this. Total Time Total Time Spent Total Time Spent (In Minutes): pt left ama Discharge Plan Discharge Items Patient Disposition: Against Medical Advice Reason For Visit: DKA Activity: Per Instructions section Non-emergency contact: Primary Care Provider Follow-up/Referrals: Carolyn Story MD [Primary Care Provider] - Pending Studies at Discharge: Yes (AMA) Stand-Alone [facility]: [facility], Smoking Cessation Medications and DC Order Prescriptions: No Action insulin glargine [Lantus Solostar U-100 Insulin] 100 unit/mL (3 mL) insulin pen 13 unit SC HS Qty: 15 3RF insulin aspart U-100 [Novolog U-100 Insulin aspart] 100 unit/mL solution See Rx Instructions .ROUTE .COMPLEX Qty: 10 4RF Rx Instructions: PT STATES "USE 2-3 X A DAY". Sliding Scale: Goal 110-140 Carb Ratio 1 unit per 11 grams CHO consumed, correction factor 35mg/dl/unit (DME) lancets [OneTouch Delica Lancets] 33 gauge misc See Rx Instructions .Route Qty: 100 0RF Rx Instructions: As directed (DME) OneTouch Verio test strips Strip See Rx Instructions .Route Qty: 100 1RF Rx Instructions: As directed (DME) insulin syringe-needle U-100 0.3 mL 31 gauge x 15/64" syringe See Rx Instructions .Route Qty: 100 0RF Rx Instructions: As directed Admission Data Admit Date/Time: 03/14/22 17:31 Attending Provider: Bret Linares Admit Provider: Bret Linares Primary Care Provider: Carolyn Story Other Providers: Bret Linares Coding Level of Care Code None Diagnoses DKA (diabetic ketoacidosis) E10.10 Diabetes mellitus complication detail: without coma Diabetes mellitus type: type 1 BERNARD (acute kidney injury) N17.9 Type I diabetes mellitus E10.9 Diabetic peripheral neuropathy E11.42 MDD (major depressive disorder), recurrent episode, moderate F33.1 GERD (gastroesophageal reflux disease) K21.9 Smoker F17.200
== END 2022-03-14 21:52 | disposition left against medical advice (07) | DRG 638 ==
LOC: ED 15:22 → EDINP 17:31

== ENCOUNTER 2022-05-15 13:24 | Inpatient (IN) ==
[2022-05-15] MEDS ORDERED: SODIUM CHLORIDE 0.9% 1000ML 1,000 ML IV SCH ×3 (14:00→15:45)
[2022-05-15 14:05] LABS: Basophils # (auto) 0.07 K/uL (0-0.2); Basophils % (auto) 0.7 %; Eosinophils # (auto) 0.03 K/uL (0-0.50); Eosinophils % (auto) 0.3 %; Hemoglobin 9.1 g/dl (14.0-18.0); Immature Granulocytes # (auto) 0.21 K/uL (0.01-0.20); Immature Granulocytes % (auto) 2.1 %; Lymphocytes # (auto) 1.26 K/uL (1.2-3.4); Lymphocytes % (auto) 12.6 %; Mean Corpuscular Hgb Conc 33.7 g/dL (32.0-36.0); Mean Corpuscular Volume 97.8 fL (80.0-100.0); Mean Platelet Volume 9.9 fL (9.4-12.4); Monocytes # (auto) 0.65 K/uL (0.11-0.59); Monocytes % (auto) 6.5 %; Neutrophils # (auto) 7.76 K/uL (1.40-6.50); Neutrophils % (auto) 77.8 %; Platelet Count 204 K/uL (130-400); RDW Coefficient of Variation 12.6 % (11.5-14.5); RDW Standard Deviation 44.8 fL (36.4-46.3); Red Blood Count 2.76 M/uL (4.70-6.10); White Blood Count 9.98 K/ul (4.8-10.8)
--- NOTE | 2022-05-15 14:18 | CT Scan Report ---
CT SCAN OF THE BRAIN WITHOUT IV CONTRAST CLINICAL HISTORY: Falls. COMPARISON STUDY: No priors. TECHNIQUE: Unenhanced axial CT scan of the brain is performed from the vertex to the skull base. A d ose lowering technique was utilized adhering to the principles of ALARA. CT DOSE: 614.27 mGy.cm FINDINGS: Brain parenchyma: There is mild but age advanced microangiopathic change. There is no hemorrhage, mas s effect, or evidence of acute territorial ischemia by CT criteria. Hall-white matter differentiation is preserved. No extra-axial fluid collection is seen. Mineralization is noted in the right basal ga nglia. Ventricles, sulci, cisterns: Normal in configuration. Intracranial vasculature: There is atherosclerotic calcification of the cavernous carotid and vertebr al arteries. Calvarium: There is no depressed calvarial fracture. Sinuses and mastoids: The visualized paranasal sinuses are clear. The mastoid air cells are well pneu matized. Orbits: The bony orbits are grossly intact. IMPRESSION: 1. No acute intracranial abnormality. 2. Mild but age advanced microangiopathic change. ACT 112: Negative or not required by law. Electronically signed by: Lex Ivan M.D. 05/15/2022 2:16 PM
--- NOTE | 2022-05-15 14:21 | XRay Report ---
SINGLE VIEW CHEST CLINICAL HISTORY: Generalized weakness. FINDINGS: An AP, portable, upright chest radiograph is compared to study dated 03/14/2022. The cardiom ediastinal silhouette is top normal for projection. The lungs and pleural spaces are clear. No pneumo thorax is seen. The bony thorax is grossly intact. There is bony bridging between the right first and second ribs. IMPRESSION: No active disease in the chest. ACT 112: Negative or not required by law. Electronically signed by: Lex Ivan M.D. 05/15/2022 2:20 PM
[2022-05-15 14:37] LABS: Albumin Globulin Ratio 1.6 (0.9-2); Albumin Level 4.1 gm/dl (3.4-5.0); BUN Creatinine Ratio 19.5 (10-20); Bilirubin,Total 0.5 mg/dl (0.2-1.0); Calcium 9.2 mg/dl (8.5-10.1); Creatinine Clr Calc Pharmacy 36.6 ml/min; Est GFR (African American) 33.6 ml/min; Globulin 2.5 gm/dl (2.5-4.0); Magnesium 1.5 mg/dl (1.7-2.4); Potassium 4.9 mmol/L (3.5-5.1); Total Protein 6.6 gm/dl (6.0-8.3)
[2022-05-15] MEDS ORDERED: CARBOHYDRATES FOR HYPOGLYCEMIA PO PRN (15:36)
[2022-05-15] MEDS ORDERED: GLUCAGON FOR INJ 1 MG VIAL SQ PRN (15:36)
[2022-05-15] MEDS ORDERED: DEXTROSE 50% 50 ML SYRINGE IV PRN (15:36)
[2022-05-15] MEDS ORDERED: GLUCOSE 10 TAB/TUBE PO PRN (15:36)
[2022-05-15] MEDS ORDERED: DKA GOAL RANGE 150-250 mg/dl ONE (15:36)
[2022-05-15] MEDS ORDERED: GLUCOSE 40% GEL 15 GM TUBE PO PRN (15:36)
[2022-05-15] MEDS ORDERED: NovoLIN-R BOLUS FROM BAG IV ONE (15:45)
[2022-05-15] MEDS ORDERED: INSULIN REGULAR 250 UNITS in SODIUM CHLORIDE 0.9% 247.5 ML IV SCH (15:45)
--- NOTE | 2022-05-15 16:06 | History & Physical Report ---
Date of Service May 15, 2022 Assessment & Plan (1) DKA (diabetic ketoacidosis): Plan: Acute DKA With history of noncompliance, patient reports he has been taking insulin as prescribed No leukocytosis ABG 7.2 12/05//13. Wean oxygen to SPO2 greater than 90% Sodium 128, pseudohyponatremia Potassium 4.9, NSS stopped and switched to NSS plus KCl. Once additional line is established we will switch to LR plus KCl Bicarb 18 following insulin drip Anion gap 22 Creatinine 2.67 Glucose 663, currently 868 TSH normal COVID-negative Insulin GTT, DKA protocol Add D5 to fluids when glucose less than 250 BMP/Mg/Phos/VBG every 4 hours. CThead: No acute findings, age advanced microangiopathic change CXR: No acute findings BERNARD -Due to prerenal volume depletion in the setting of DKA Receiving IV fluid resuscitation and subsequent maintenance while on insulin drip. Trend BMP. Renally dose medications Tobacco abuse May use nicotine patch if needed 2 pack/day current tobacco use Endorses evening marijuana use, denies any IV drug use or recreational drug use other than marijuana MDD Denies taking any medication for this at this time. DVT prophylaxis: Low risk, SCDs Disposition: PCU CODE STATUS: Full code Diet: N.p.o. (2) Smoker: (3) MDD (major depressive disorder), recurrent episode, moderate: (4) Type I diabetes mellitus: History of Present Illness Primary Care Provider: Carolyn Story MD Laron is a 36-year-old male with a past medical history of type 1 diabetes with neuropathy and recurrent DKA, GERD, and depression who presents with elevated blood sugars/DKA Went to [place] and was tx for bsg 1800. 890 today. Awake/oriented, minimally conversant. Denies missed doses. Reports BSG was elevated last week, improved in [place], but was again elevated this morning and his girlfriend called EMS for him to be seen. Reports last took insulin today when his blood sugar was >800. Denies fever, chills, sweats, abdominal pain. Has had no chest pressure or chest pain. Denies shortness of breath. Denies any cuts, injuries, skin ulcerations, or wounds. Has not had any pain when peeing. Has not had any cough, sputum production or sinus congestion. Denies any infectious symptoms. Reports his abdomen does not hurt, he had some cereal this morning, and has not had a reduced appetite. No nausea/vomiting. Endorses that he has had some swelling in his ankles in the last days, which has occurred intermittently for him for a long time. No change. Medical History: Reviewed Medications: Reviewed Surgical History: Reviewed Allergies: Reviewed Social History: No etoh use. 2ppd tobacco use. Rec marijuana use at night Code Status: Full Code Allergies Allergy/AdvReac Type Severity Reaction Status Date / Time codeine Allergy Intermediate Rash Verified 03/14/22 18:50 erythromycin base Allergy Unknown HAPPENED Verified 03/14/22 18:50 A SMALL CHILD Home Medications Medication Instructions Recorded Confirmed Type blood sugar diagnostic (OneTouch #100 ea 07/31/21 03/14/22 Rx Verio test strips) insulin syringe-needle U-100 0.3 #100 ea 07/31/21 03/14/22 Rx mL 31 gauge x 15/64" lancets 33 gauge (OneTouch Delica #100 ea 07/31/21 03/14/22 Rx Lancets) insulin aspart U-100 100 unit/mL See Rx Instructions .Route 10/26/21 03/14/22 Rx subcutaneous solution (Novolog .COMPLEX #10 mL U-100 Insulin aspart) insulin glargine 100 unit/mL (3 13 unit (0.13 mL) SC HS #15 mL 10/26/21 03/14/22 Rx mL) subcutaneous pen (Lantus Solostar U-100 Insulin) Past Med/Surg History Medical History Acute hyperglycemia Suicidal ideation Surgical History No significant past surgical history Family History Other Diabetes Social History Smoking Status: Current every day smoker Tobacco Type: Cigarettes Cigarettes Per Day: 1 pack; Second Hand Exposure: No; Hx Alcohol Use: No Hx Substance Use: No Preferred Language: Slovak Communication Ability: Effective Visual Impairment: Limited Hearing Ability: Normal Personal Injury Legal Assistant Required: No Beliefs That Will Affect Care: None marital status: Single Current Living Situation: Homeless Current Living Situation Comment: Cousin current occupational status: disabled How many Children do You have: 0 Feels Safe at Home: Yes Childhood Exposure to Second-Hand Smoke: No caffeine: Yes during the past year weight has: remained stable Dental Care, Regularly: Yes Physical Activity Frequency: Daily Seatbelt Use: always Sunscreen Use: No Do you think of yourself as: straight/heterosexual Sexual Activity: has been sexually active within the last 12 months Gender Identity: Male Assistive Devices: None Review of Systems Review of Systems: All systems reviewed & are unremarkable except as noted in HPI & below Physical Exam Physical Exam: General: A&Ox3. NAD. Cooperative. HEENT: Atraumatic, normocephalic. Vision/hearing intact Pulm: CTAB A&P. -wheezes, -rales, -rhonchi. Symmetrical chest rise. No increased work of breathing. No respiratory distress. Cardiac: Tachycardic, -mrg. Radial pulses intact and symmetrical. Abdominal: Nontender, nondistended, soft. BS present. Extremities: Bilateral pedal edema. Warm, dry. Sensation soft touch intact in hands and feet. No open ulcerations, erythema, warmth, tenderness appreciated on upper or lower extremities Results & Data Results & Data ([facility]) Vital Signs (Past 12 Hours) Vital Signs Temp Pulse Pulse Resp BP BP Pulse Ox 05/15/22 14:34 05/15/22 13:43 37.1 C 116 H 16 151/87 H 96 05/15/22 13:43 37.1 C 116 H 16 147/90 H 96 O2 Del Method 05/15/22 14:34 Room Air 05/15/22 13:43 Room Air 05/15/22 13:43 Room Air PG Care Time/CCT Total # of Minutes Spent Total Time Spent with Patient: Total time spent is greater than 50% in coordination of care (as documented) at patient's floor/unit and/or counseling patient: Coding Level of Care Code 29293 INT INP/OBS CARE 3/75MIN Diagnoses DKA (diabetic ketoacidosis) E10.10 Diabetes mellitus complication detail: without coma Diabetes mellitus type: type 1 Smoker F17.200 MDD (major depressive disorder), recurrent episode, moderate F33.1 Type I diabetes mellitus E10.9 (1) DKA (diabetic ketoacidosis) Diabetes mellitus complication detail: without coma Diabetes mellitus type: type 1 Qualified Code(s): E10.10 - Type 1 diabetes mellitus with ketoacidosis without coma
[2022-05-15 16:11] LABS: HCO3 ABG 13 mmol/L (19-24); PCO2 ABG 28 mmHg (35-46); PO2 ABG 100 mmHg (80-95); pH ABG 7.28 (7.35-7.45)
[2022-05-15 16:13] LABS: Allen Test POS (Pos)
[2022-05-15] MEDS: MAGNESIUM SULFATE / D5W 1 GM/100 ML BAG IV SCH ×2 (16:14→17:10)
[2022-05-15] MEDS ORDERED: INSULIN ASPART PER UNIT SC SCH (16:30)
[2022-05-15] MEDS ORDERED: NSS + 20MEQ KCL 20 MEQ/1,000 ML BAG IV SCH (16:45)
--- NOTE | 2022-05-15 18:44 | Emergency Department Note ---
ED Provider Note CHIEF COMPLAINT: Hyperglycemia HISTORY OF PRESENT ILLNESS: This 36-year-old male patient with a history of insulin-dependent diabetes presents to the emergency department with complaints of frequent falls this morning. Patient states his blood sugars elevated over 800. He was admitted to [facility] last week with blood sugars of 1800. Jesi sanford is a difficult historian however states he has been taking his insulin, last dose was this morning. He denies vomiting, fevers and shortness of breath. Patient states he has been urinating without difficulty. REVIEW OF SYSTEMS: A full review of systems is not obtainable due to the patient's condition and difficulty as a historian. ALLERGIES: see below MEDICATIONS: see below PMH: see below SOCIAL HISTORY: see below DDx: Infection, dehydration, metabolic abnormality, hypo/hyperglycemia, electrolyte disturbance, anemia, hypoxia, cardiac sources, intracerebral event, toxicologic, neurologic, as well as other pathologies. PHYSICAL EXAM: Vital signs reviewed. General: Chronically ill-appearing 36-year-old male smells of ketones with diminished mental status HEENT: No scleral icterus, PERRLA, neck supple. Dry mucous membranes Cardiovascular: Tachycardic but regular, no extra sounds Pulmonary: Clear to auscultation bilaterally, increased respiratory rate Abdomen: Soft, nontender, nondistended, positive bowel sounds. Musculoskeletal: Atraumatic, no peripheral edema. Neurologic: Patient somnolent but arousable and answers most questions appropriately but needs to be prompted. Falls asleep quickly Skin: Warm, dry, no rash EMERGENCY DEPARTMENT COURSE/MDM: This patient was evaluated and appeared to be in some discomfort but no distress. IV access was obtained and laboratory work was drawn. The patient was hydrated with 2 L of normal saline solution and 4 mg of Zofran IV. Patient's glucose was noted to be over 600 on fingerstick. Laboratory work reveals glucose of 868 with a gap of 22. Patient's ABG reveals a pH of 7.28. IV fluids were continued at 150 mL/h. Insulin drip protocol for DKA was ordered. 2 g of IV magnesium ordered for repletion. Potassium was 4.9. Patient's case was discussed with the hospitalist service, Dr. Alvarenga for admission and further management. Patient has expressed understanding of the plan and agrees. MONITORING: An order for cardiac monitoring was placed and the patient is noted to be in a sinus tachycardia at 116 beats per minute. RADIOLOGY: Head CT to my review reveals no evidence of acute intracranial bleed, otherwise deferred to radiology. Chest x-ray to my interpretation reveals no evidence of acute cardiopulmonary abnormality. EKG: EKG to my interpretation reveals a sinus tachycardia 114 bpm QTC is 432. Normal ST segments. T wave abnormality noted in the inferior leads. Compared to previous dated March 14, 2022, T wave flattening inferiorly is more significant and T wave abnormality in the lateral leads has improved. DISPOSITION: Admission Past Med/Surg History Medical History Acute hyperglycemia Suicidal ideation Surgical History No significant past surgical history Family History Other Diabetes Social History Smoking Status: Current every day smoker Tobacco Type: Cigarettes Cigarettes Per Day: 1 pack; Second Hand Exposure: No; Hx Alcohol Use: No Hx Substance Use: No Preferred Language: Yoruba Communication Ability: Effective Visual Impairment: Limited Hearing Ability: Normal Commercial Loan Assistant Required: No Beliefs That Will Affect Care: None marital status: Single Current Living Situation: Homeless Current Living Situation Comment: Cousin current occupational status: disabled How many Children do You have: 0 Feels Safe at Home: Yes Childhood Exposure to Second-Hand Smoke: No caffeine: Yes during the past year weight has: remained stable Dental Care, Regularly: Yes Physical Activity Frequency: Daily Seatbelt Use: always Sunscreen Use: No Do you think of yourself as: straight/heterosexual Sexual Activity: has been sexually active within the last 12 months Gender Identity: Male Assistive Devices: None Allergies Allergies Allergy/AdvReac Type Severity Reaction Status Date / Time codeine Allergy Intermediate Rash Verified 05/15/22 16:54 erythromycin base Allergy Unknown HAPPENED Verified 05/15/22 16:54 A SMALL CHILD Home Meds Home Medications Medication Instructions Recorded Confirmed acetaminophen 500 mg tablet 100 - 1,500 mg PO Q8 PRN Pain 05/15/22 05/15/22 (Tylenol Extra Strength) insulin glargine 100 unit/mL (3 15 unit SC [facility] 05/15/22 05/15/22 mL) subcutaneous pen (Lantus Solostar U-100 Insulin) insulin lispro 100 unit/mL 0 unit subcut TIDM 05/15/22 05/15/22 subcutaneous cartridge (Humalog U-100 Insulin) Previous Rx's Medication Instructions Recorded blood sugar diagnostic (OneTouch #100 ea 07/31/21 Verio test strips) insulin syringe-needle U-100 0.3 #100 ea 07/31/21 mL 31 gauge x 15/64" lancets 33 gauge (OneTouch Delica #100 ea 07/31/21 Lancets) Results & Data (ED) Vital Signs Vital Signs - 24 hr 05/15/22 13:43 05/15/22 13:43 05/15/22 14:34 Temperature 37.1 C 37.1 C Temperature Source Oral Oral Pulse Rate 116 H Pulse Rate [Right Finger] 116 H Pulse Rhythm [Right Finger] Pulse Strength [Right Finger] Respiratory Rate 16 16 Respiratory Effort / Characteristics Non-Labored Spontaneous Non-Labored Spontaneous Respiratory Depth Normal Normal Respiratory Pattern Blood Pressure 147/90 H Blood Pressure [Right Arm] 151/87 H Blood Pressure Mean 109 Blood Pressure Mean [Right Arm] 108 Blood Pressure Position Lying Blood Pressure Position [Right Arm] Lying Pulse Oximetry 96 96 Oxygen Delivery Method Room Air Room Air Room Air Sepsis Recent Fever Within 48 Hours No Sepsis New/Unexplained Change in Mental Status No Sepsis Action Taken by Nursing No Action Required 05/15/22 16:00 05/15/22 18:00 Temperature Temperature Source Pulse Rate Pulse Rate [Right Finger] 122 H 115 H Pulse Rhythm [Right Finger] Regular Regular Pulse Strength [Right Finger] Normal Normal Respiratory Rate 18 18 Respiratory Effort / Characteristics Non-Labored Non-Labored Respiratory Depth Normal Normal Respiratory Pattern Regular Regular Blood Pressure Blood Pressure [Right Arm] 150/90 H 149/86 H Blood Pressure Mean Blood Pressure Mean [Right Arm] 110 107 Blood Pressure Position Blood Pressure Position [Right Arm] Lying Lying Pulse Oximetry 97 98 Oxygen Delivery Method Room Air Room Air Sepsis Recent Fever Within 48 Hours Sepsis New/Unexplained Change in Mental Status Sepsis Action Taken by [facility] Medications Current Medication List: was personally reviewed by me Laboratory Data Attestation: I reviewed the patient's lab results. 05/15/22 13:39 05/15/22 13:39 Lab Results 05/15/22 05/15/22 05/15/22 Range/Units 13:35 13:39 13:39 WBC 9.98 (4.8-10.8) K/ul RBC 2.76 L (4.70-6.10) M/uL Hgb 9.1 L (14.0-18.0) g/dl Hct 27.0 L (42.0-52.0) % MCV 97.8 (80.0-100.0) fL MCH 33.0 (25.0-34.0) pg MCHC 33.7 (32.0-36.0) g/dL RDW Std Deviation 44.8 (36.4-46.3) fL RDW Coeff of Margarita 12.6 (11.5-14.5) % Plt Count 204 (130-400) K/uL MPV 9.9 (9.4-12.4) fL Immature Gran % (Auto) 2.1 % Neut % (Auto) 77.8 % Lymph % (Auto) 12.6 % [place] % (Auto) 6.5 % Eos % (Auto) 0.3 % Baso % (Auto) 0.7 % Neut # (Auto) 7.76 H (1.40-6.50) K/uL Lymph # (Auto) 1.26 (1.2-3.4) K/uL [place] # (Auto) 0.65 H (0.11-0.59) K/uL Eos # (Auto) 0.03 (0-0.50) K/uL Baso # (Auto) 0.07 (0-0.2) K/uL Immature Gran # (Auto) 0.21 H (0.01-0.20) K/uL ABG pH (7.35-7.45) ABG pCO2 (35-46) mmHg ABG pO2 (80-95) mmHg ABG HCO3 (19-24) mmol/L ABG O2 Saturation (90-95) % ABG Base Excess (-9-1.8) mEq/L Demond Test (Pos) Oxygen Given Sodium 128 L (136-145) mmol/L Potassium 4.9 (3.5-5.1) mmol/L Chloride 88 L (98-107) mmol/L Carbon Dioxide 18 L (21-32) mmol/L Anion Gap 22 H (3-11) BUN 52 H (6-23) mg/dl Creatinine 2.67 H (0.6-1.4) mg/dl Est Cr Clr Drug Dosing 36.6 ml/min Est GFR ( Amer) 33.6 ml/min Est GFR (Non-Af Amer) 29.0 ml/min BUN/Creatinine Ratio 19.5 (10-20) Glucose 868 H* (70-99(Fasting)) mg/dl POC Glucose > 600 H* (70-99) mg/dl Lactate (0.4-2.0) mmol/L Calcium 9.2 (8.5-10.1) mg/dl Magnesium 1.5 L (1.7-2.4) mg/dl Total Bilirubin 0.5 (0.2-1.0) mg/dl AST 32 (13-39) U/L ALT 57 H (7-52) U/L Alkaline Phosphatase 207 H (34-104) U/L Total Protein 6.6 (6.0-8.3) gm/dl Albumin 4.1 (3.4-5.0) gm/dl Globulin 2.5 (2.5-4.0) gm/dl Albumin/Globulin Ratio 1.6 (0.9-2) TSH (0.300-4.500) uIu/ml SARS-CoV-2, RNA, NAAT (NEGATIVE) 05/15/22 05/15/22 05/15/22 Range/Units 13:39 14:27 14:28 WBC (4.8-10.8) K/ul RBC (4.70-6.10) M/uL Hgb (14.0-18.0) g/dl Hct (42.0-52.0) % MCV (80.0-100.0) fL MCH (25.0-34.0) pg MCHC (32.0-36.0) g/dL RDW Std Deviation (36.4-46.3) fL RDW Coeff of Margarita (11.5-14.5) % Plt Count (130-400) K/uL MPV (9.4-12.4) fL Immature Gran % (Auto) % Neut % (Auto) % Lymph % (Auto) % [place] % (Auto) % Eos % (Auto) % Baso % (Auto) % Neut # (Auto) (1.40-6.50) K/uL Lymph # (Auto) (1.2-3.4) K/uL [place] # (Auto) (0.11-0.59) K/uL Eos # (Auto) (0-0.50) K/uL Baso # (Auto) (0-0.2) K/uL Immature Gran # (Auto) (0.01-0.20) K/uL ABG pH (7.35-7.45) ABG pCO2 (35-46) mmHg ABG pO2 (80-95) mmHg ABG HCO3 (19-24) mmol/L ABG O2 Saturation (90-95) % ABG Base Excess (-9-1.8) mEq/L Demond Test (Pos) Oxygen Given Sodium (136-145) mmol/L Potassium (3.5-5.1) mmol/L Chloride (98-107) mmol/L Carbon Dioxide (21-32) mmol/L Anion Gap (3-11) BUN (6-23) mg/dl Creatinine (0.6-1.4) mg/dl Est Cr Clr Drug Dosing ml/min Est GFR ( Amer) ml/min Est GFR (Non-Af Amer) ml/min BUN/Creatinine Ratio (10-20) Glucose (70-99(Fasting)) mg/dl POC Glucose (70-99) mg/dl Lactate 1.3 (0.4-2.0) mmol/L Calcium (8.5-10.1) mg/dl Magnesium (1.7-2.4) mg/dl Total Bilirubin (0.2-1.0) mg/dl AST (13-39) U/L ALT (7-52) U/L Alkaline Phosphatase (34-104) U/L Total Protein (6.0-8.3) gm/dl Albumin (3.4-5.0) gm/dl Globulin (2.5-4.0) gm/dl Albumin/Globulin Ratio (0.9-2) TSH 4.269 (0.300-4.500) uIu/ml SARS-CoV-2, RNA, NAAT NEGATIVE (NEGATIVE) 05/15/22 05/15/22 Range/Units 15:47 17:57 WBC (4.8-10.8) K/ul RBC (4.70-6.10) M/uL Hgb (14.0-18.0) g/dl Hct (42.0-52.0) % MCV (80.0-100.0) fL MCH (25.0-34.0) pg MCHC (32.0-36.0) g/dL RDW Std Deviation (36.4-46.3) fL RDW Coeff of Margarita (11.5-14.5) % Plt Count (130-400) K/uL MPV (9.4-12.4) fL Immature Gran % (Auto) % Neut % (Auto) % Lymph % (Auto) % [place] % (Auto) % Eos % (Auto) % Baso % (Auto) % Neut # (Auto) (1.40-6.50) K/uL Lymph # (Auto) (1.2-3.4) K/uL [place] # (Auto) (0.11-0.59) K/uL Eos # (Auto) (0-0.50) K/uL Baso # (Auto) (0-0.2) K/uL Immature Gran # (Auto) (0.01-0.20) K/uL ABG pH 7.28 L (7.35-7.45) ABG pCO2 28 L (35-46) mmHg ABG pO2 100 H (80-95) mmHg ABG HCO3 13 L (19-24) mmol/L ABG O2 Saturation 99.0 H (90-95) % ABG Base Excess -12.0 L (-9-1.8) mEq/L Demond Test POS (Pos) Oxygen Given ROOM AIR Sodium (136-145) mmol/L Potassium (3.5-5.1) mmol/L Chloride (98-107) mmol/L Carbon Dioxide (21-32) mmol/L Anion Gap (3-11) BUN (6-23) mg/dl Creatinine (0.6-1.4) mg/dl Est Cr Clr Drug Dosing ml/min Est GFR ( Amer) ml/min Est GFR (Non-Af Amer) ml/min BUN/Creatinine Ratio (10-20) Glucose (70-99(Fasting)) mg/dl POC Glucose > 600 H* (70-99) mg/dl Lactate (0.4-2.0) mmol/L Calcium (8.5-10.1) mg/dl Magnesium (1.7-2.4) mg/dl Total Bilirubin (0.2-1.0) mg/dl AST (13-39) U/L ALT (7-52) U/L Alkaline Phosphatase (34-104) U/L Total Protein (6.0-8.3) gm/dl Albumin (3.4-5.0) gm/dl Globulin (2.5-4.0) gm/dl Albumin/Globulin Ratio (0.9-2) TSH (0.300-4.500) uIu/ml SARS-CoV-2, RNA, NAAT (NEGATIVE) Administered Medications Insulin Human Regular 250 (units/ Sodium Chloride) 250 mls @ 7 mls/hr IV .Q24H [facility]; Protocol Stop: 06/14/22 15:44 Last Admin: 05/15/22 16:13 Dose: 7 units/hr, 7 mls/hr Documented By: SHEILA Co-signed By: SLSha Potassium Chloride/Sodium Chloride (Normal Saline W/20 Meq Kcl) 20 meq in 1,000 mls @ 150 mls/hr IV .Q6H40M [facility] Stop: 06/14/22 16:44 Last Admin: 05/15/22 17:58 Dose: 150 mls/hr Documented By: SHEILA Insulin Aspart (Insulin Aspart Per Unit) 0 units SC ACHS [facility] Stop: 06/14/22 16:29 Last Admin: 05/15/22 16:29 Dose: Not Given Documented By: AP Discontinued Medications Sodium Chloride (Nss 1000ml) 1,000 mls @ 999 mls/hr IV .Q1H1M [facility] Stop: 05/15/22 15:00 Last Infusion: 05/15/22 17:06 Dose: 0 mls/hr Documented By: Admin: 05/15/22 15:13 Dose: 999 mls/hr Documented By: SHEILA Magnesium Sulfate/Dextrose (Magnesium Sulfate / D5w) 1 gm in 100 mls @ 200 mls/hr IV Q30M [facility] Stop: 05/15/22 15:55 Last Infusion: 05/15/22 17:58 Dose: 0 mls/hr Documented By: Admin: 05/15/22 17:10 Dose: 200 mls/hr Documented By: Infusion: 05/15/22 17:06 Dose: 0 mls/hr Documented By: Admin: 05/15/22 16:14 Dose: 200 mls/hr Documented By: AP Sodium Chloride (Nss 1000ml) 1,000 mls @ 150 mls/hr IV .Q6H40M [facility] Stop: 06/14/22 15:44 Last Admin: 05/15/22 16:14 Dose: 150 mls/hr Documented By: AP Sodium Chloride (Nss 1000ml) 1,000 mls @ 999 mls/hr IV .Q1H1M [facility] Stop: 05/15/22 16:38 Last Infusion: 05/15/22 18:13 Dose: 0 mls/hr Documented By: Admin: 05/15/22 16:14 Dose: 999 mls/hr Documented By: AP Insulin Human Regular (Novolin-R Bolus From Bag) 7 units IV ONE ONE Stop: 05/15/22 15:46 Last Admin: 05/15/22 16:14 Dose: 7 units Documented By: SHEILA Co-signed By: KALINA Imaging Data Radiologist's Impression: Chest X-Ray 05/15/22 13:57 SINGLE VIEW CHEST CLINICAL HISTORY: Generalized weakness. FINDINGS: An AP, portable, upright chest radiograph is compared to study dated 03/14/2022. The cardiomediastinal silhouette is top normal for projection. The lungs and pleural spaces are clear. No pneumothorax is seen. The bony thorax is grossly intact. There is bony bridging between the right first and second ribs. IMPRESSION: No active disease in the chest. ACT 112: Negative or not required by law. Electronically signed by: Lex Ivan M.D. 05/15/2022 2:[address] 05/15/22 13:57 CT SCAN OF THE BRAIN WITHOUT IV CONTRAST CLINICAL HISTORY: Falls. COMPARISON STUDY: No priors. TECHNIQUE: Unenhanced axial CT scan of the brain is performed from the vertex to the skull base. A dose lowering technique was utilized adhering to the principles of ALARA. CT DOSE: 614.27 mGy.cm FINDINGS: Brain parenchyma: There is mild but age advanced microangiopathic change. There is no hemorrhage, mass effect, or evidence of acute territorial ischemia by CT criteria. Hall-white matter differentiation is preserved. No extra-axial fluid collection is seen. Mineralization is noted in the right basal ganglia. Ventricles, sulci, cisterns: Normal in configuration. Intracranial vasculature: There is atherosclerotic calcification of the cave rnous carotid and vertebral arteries. Calvarium: There is no depressed calvarial fracture. Sinuses and mastoids: The visualized paranasal sinuses are clear. The mastoid air cells are well pneumatized. Orbits: The bony orbits are grossly intact. IMPRESSION: 1. No acute intracranial abnormality. 2. Mild but age advanced microangiopathic change. ACT 112: Negative or not required by law. Electronically signed by: Lex Ivan M.D. 05/15/2022 2:16 PM Discharge Plan Visit Data Chief Complaint: Hyperglycemia Stated Complaint: HYPERGLYCEMIA, FALLS ED Provider: Carmlea Scales Forms Stand Alone Forms: My [facility] Prescriptions Prescriptions: No Action (DME) lancets [OneTouch Delica Lancets] 33 gauge misc See Rx Instructions .Route Qty: 100 0RF Rx Instructions: As directed (DME) OneTouch Verio test strips Strip See Rx Instructions .Route Qty: 100 1RF Rx Instructions: As directed (DME) insulin syringe-needle U-100 0.3 mL 31 gauge x 15/64" syringe See Rx Instructions .Route Qty: 100 0RF Rx Instructions: As directed acetaminophen [Tylenol Extra Strength] 500 mg Tablet 100 - 1,500 mg PO Q8 PRN (Reason: Pain) Humalog U-100 Insulin 100 unit/mL Cartridge 0 unit SUBCUT TIDM Rx Instructions: Plus sliding scale, patient thinks he take 15 units tid with meals & ss, but seems a little confused. insulin glargine [Lantus Solostar U-100 Insulin] 100 unit/mL (3 mL) insulin pen 15 unit SC [facility] Referrals Referrals: Carolyn Story MD [Primary Care Provider] -
[2022-05-15] MEDS ORDERED: ACETAMINOPHEN 325 MG TAB PO PRN (19:09)
[2022-05-15] MEDS ORDERED: PHARMACY GLYCEMIC MGMT CONSULT PRN (19:09)
[2022-05-15] MEDS ORDERED: POTASSIUM CHLORIDE 20 MEQ in NORMOSOL-R 1,000 ML IV SCH (19:09)
[2022-05-15 20:52] LABS: BUN Creatinine Ratio 20.2 (10-20); Calcium 8.8 mg/dl (8.5-10.1); Creatinine Clr Calc Pharmacy 40.2 ml/min; Est GFR (African American) 37.7 ml/min; Est GFR (Non-African American) 32.5 ml/min; Magnesium 1.9 mg/dl (1.7-2.4); Phosphorus 2.5 mg/dl (2.5-4.9); Potassium 3.6 mmol/L (3.5-5.1)
--- NOTE | 2022-05-15 22:08 | Communication Note ---
Date of Service: May 15, 2022 Notified of patient's desire to leave AMA around 19:54 on 05/15/2022. I went to the patient's room and discussed with the patients his current condition. Patient was alert and oriented x3 and stated he was just at [facility] and left and was brought to this hospital by EMS earlier in the day. He was not sure who called EMS. He stated he did not want to be in the hospital anymore and that he has insulin at home and can handle himself and his medication administration at home. I went over with the patient the possibility of organ damage, cardiac arrest from potentially low potassium, the possibility of worsening glucose and acidic blood, as well as the possibility for if he leaves against medical advice. Patient repeated back what we discussed and stated he understood the risks. At that time I went over the AMA paperwork with patient and nurse and the patient left against medical advice.
--- NOTE | 2022-05-16 09:24 | Electrocardiogram Report ---
Test Reason : Blood Pressure : / mmHG Vent. Rate : 114 BPM Atrial Rate : 114 BPM P-R Int : 146 ms QRS Dur : 084 ms QT Int : 314 ms P-R-T Axes : 053 026 018 degrees QTc Int : 432 ms Sinus tachycardia Otherwise normal ECG When compared with ECG of 14-MAR-2022 15:34, HR has decreased by 18 bpm Otherwise no significant change Confirmed by Bill Simons ([id number]) on 05/16/2022 9:24:03 AM Referred By: Confirmed By:Bill Simons
--- NOTE | 2022-05-16 10:10 | Discharge Summary ---
Date of Service May 16, 2022 Admission HPI Per Admitting Provider Laron is a 36-year-old male with a past medical history of type 1 diabetes with neuropathy and recurrent DKA, GERD, and depression who presents with elevated blood sugars/DKA Went to [place] and was tx for bsg 1800. 890 today. Awake/oriented, minimally conversant. Denies missed doses. Reports BSG was elevated last week, improved in [facility], but was again elevated this morning and his girlfriend called EMS for him to be seen. Reports last took insulin today when his blood sugar was >800. Denies fever, chills, sweats, abdominal pain. Has had no chest pressure or chest pain. Denies shortness of breath. Denies any cuts, injuries, skin ulcerations, or wounds. Has not had any pain when peeing. Has not had any cough, sputum production or sinus congestion. Denies any infectious symptoms. Reports his abdomen does not hurt, he had some cereal this morning, and has not had a reduced appetite. No nausea/vomiting. Endorses that he has had some swelling in his ankles in the last days, which has occurred intermittently for him for a long time. No change. Medical History: Reviewed Medications: Reviewed Surgical History: Reviewed Allergies: Reviewed Social History: No etoh use. 2ppd tobacco use. Rec marijuana use at night Code Status: Full Code Principal Diagnosis DKA Discharge Exam Left prior to physical examination Discharge Data Allergies Allergy/AdvReac Type Severity Reaction Status Date / Time codeine Allergy Intermediate Rash Verified 05/15/22 16:54 erythromycin base Allergy Unknown HAPPENED Verified 05/15/22 16:54 A SMALL CHILD Consultations 05/15/22 16:02 ED Decision to Admit Stat Ordered Studies 05/15/22 13:57 CT head/brain wo con Stat Hospital Course (1) DKA (diabetic ketoacidosis): Laron is a 36-year-old male with a history of multiple episodes of DKA and AMA discharges. Patient was admitted with the plan copied below. Subsequent to admission overnight resident was contacted as patient wished to leave AMA. Risks of leaving AMA including hyperglycemia, worsening DKA, permanent disability, coma, and were reviewed with the patient both by hospitalist at time of assessment due to his history of leaving recurrently AMA, and by resident overnight at time of AMA discharge. Please see communication note for further. Acute DKA With history of noncompliance, patient reports he has been taking insulin as prescribed No leukocytosis ABG 7.2 12/05//13. Wean oxygen to SPO2 greater than 90% Sodium 128, pseudohyponatremia Potassium 4.9, NSS stopped and switched to NSS plus KCl. Once additional line is established we will switch to LR plus KCl Bicarb 18 following insulin drip Anion gap 22 Creatinine 2.67 Glucose 663, currently 868 TSH normal COVID-negative Insulin GTT, DKA protocol Add D5 to fluids when glucose less than 250 BMP/Mg/Phos/VBG every 4 hours. CThead: No acute findings, age advanced microangiopathic change CXR: No acute findings BERNARD -Due to prerenal volume depletion in the setting of DKA Receiving IV fluid resuscitation and subsequent maintenance while on insulin drip. Trend BMP. Renally dose medications Tobacco abuse May use nicotine patch if needed 2 pack/day current tobacco use Endorses evening marijuana use, denies any IV drug use or recreational drug use other than marijuana MDD Denies taking any medication for this at this time. DVT prophylaxis: Low risk, SCDs Disposition: PCU CODE STATUS: Full code Diet: N.p.o. (2) Smoker: (3) MDD (major depressive disorder), recurrent episode, moderate: (4) Type I diabetes mellitus: Total Time Total Time Spent Total Time Spent (In Minutes): N/A Discharge Plan Discharge Items Patient Disposition: Against Medical Advice Reason For Visit: DKA Activity: Per Instructions section Non-emergency contact: Primary Care Provider Follow-up/Referrals: Carolyn Story MD [Primary Care Provider] - Pending Studies at Discharge: No Stand-Alone Forms: [employer], Smoking Cessation Skilled Items Patient informed of condition?: Yes Medications and DC Order Prescriptions: Continued (DME) lancets [OneTouch Delica Lancets] 33 gauge misc See Rx Instructions .Route Qty: 100 0RF Rx Instructions: As directed (DME) OneTouch Verio test strips Strip See Rx Instructions .Route Qty: 100 1RF Rx Instructions: As directed (DME) insulin syringe-needle U-100 0.3 mL 31 gauge x 15/64" syringe See Rx Instructions .Route Qty: 100 0RF Rx Instructions: As directed acetaminophen [Tylenol Extra Strength] 500 mg Tablet 100 - 1,500 mg PO Q8 PRN (Reason: Pain) Humalog U-100 Insulin 100 unit/mL Cartridge 0 unit SUBCUT TIDM Rx Instructions: Plus sliding scale, patient thinks he take 15 units tid with meals & ss, but seems a little confused. insulin glargine [Lantus Solostar U-100 Insulin] 100 unit/mL (3 mL) insulin pen 15 unit SC [facility] Discharge Orders: Left Against Medical Advice (Routine); Ordered 05/15/22 Ordered By: Constantino Marquez Admission Data Admit Date/Time: 05/15/22 16:16 Attending Provider: Maulik Dozier Admit Provider: Maulik Dozier Primary Care Provider: Carolyn Story Other Providers: Maulik Dozier Coding Level of Care Code None Diagnoses DKA (diabetic ketoacidosis) E10.10 Diabetes mellitus complication detail: without coma Diabetes mellitus type: type 1 Smoker F17.200 MDD (major depressive disorder), recurrent episode, moderate F33.1 Type I diabetes mellitus E10.9
== END 2022-05-15 20:25 | disposition left against medical advice (07) | DRG 638 ==
LOC: ED 13:24 → EDINP 16:16

== ENCOUNTER 2022-08-01 19:13 | Inpatient (IN) ==
[2022-08-01] MEDS ORDERED: SODIUM CHLORIDE 0.9% 1000ML 2,000 ML IV ONE (19:24)
--- NOTE | 2022-08-01 19:31 | Emergency Department Note ---
Impression & Plan DKA (diabetic ketoacidosis) ADMIT ED Provider Note HPI: The patient is a 37-year-old gentleman with history of insulin-dependent diabetes, history of noncompliance, presents the emergency department with generalized weakness as well as nausea and vomiting that began today. Patient is a limited historian on arrival, states overall he just has not felt well. He tells me he has been taking his insulin but he is unable to coherently repeat his regimen to me. He is otherwise alert and oriented on arrival, noted to be tachycardic on my initial assessment in the 130s, on my initial assessment blood pressure is in the 120 systolic. Patient is saturating well on room air on my initial assessment. ROS: - Per HPI *Outpatient medications and allergy history reviewed. *Pertinent external medical records reviewed. PE: General: Alert, frail-appearing HEENT: Normocephalic, trachea midline Eyes: Extraocular eye movement is intact, no scleral erythema Pulmonary: Clear to auscultation bilaterally, no wheezing Cardio: Tachycardic rate with regular rhythm GI: Abdomen is soft to palpation, nontender to palpation : No suprapubic tenderness MSK: No evidence of trauma or malformation of the extremities, no edema Skin: No evidence of rash Neuro: Alert, no focal deficits Psychiatric: Cooperative environmental monitoring specialist: (As interpreted by myself): - An order was placed for continuous cardiac monitoring - Patient was noted to be in sinus tachycardia with a rate of 133 EKG: (As interpreted by myself): Rate: 125 Rhythm: Sinus tachycardia Intervals: Within normal limits ST changes: No ST elevation Time: 1952 Interventions provided in ED: -IV fluid bolus, insulin drip Differential Diagnosis: Diabetic ketoacidosis, sepsis, acute appendicitis, acute cholecystitis, urinary tract infection, pneumonia, gastroenteritis, HHNK, amongst other potential pathologies. Medical Decision Making: The patient is a 37-year-old gentleman with history of insulin noncompliance, presents emergency department with chief complaint of nausea and vomiting and generalized weakness today. On arrival here to the ED the patient is ill- appearing, he is noted to be tachycardic, blood pressure is stable, IV was eventually established with some difficulty, patient was initiated on IV fluids, lab work was sent and patient was maintained on bus driver/monitor. Lab work does show evidence of findings concerning for DKA, venous blood gas shows pH of 7.23, patient's glucose is 684 with anion gap elevation at 32, patient's serum bicarbonate level is 13. Patient was aggressively IV fluid resuscitated, potassium returned at 5.0 and patient was therefore started on in sulin drip. Mild leukocytosis noted, likely reactive, no obvious source of infection. Chest x-ray does not show any obvious infiltrate per my interpretation. Urinalysis shows 3+ glucose and 3+ ketones, otherwise no evidence of infection. Abdomen is nontender on my examination, I suspect the patient's nausea and vomiting secondary to DKA and not an acute intra-abdominal process therefore CT imaging of the abdomen pelvis was not ordered. Given the patient's lab findings and concern for DKA, [facility] hospitalist service was consulted for admission. Insulin drip and bolus ordered. Case was discussed with the on-call medicine resident and the patient was placed for admission in stable condition. Case also discussed with Dr. Gonzales who was in agreement for admission and states the patient will be admitted to the ICU. Patient was placed for admission in improved condition. Consultants: Hospitalist Service, Dr. Gonzales Disposition discussion held by myself with: Patient * CRITICAL CARE TIME: ( 45 ) minutes -Stabilization and treatment of DKA requiring initiation of insulin drip as well as of aggressive IV fluid resuscitation, time spent at the bedside, discussion with other physicians and arrangement of admission to ICU Diagnosis: 1. Diabetic ketoacidosis, acute 2. History of medication noncompliance 3. Acute kidney injury 4. 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 Beliefs That Will Affect Care: None marital status: Single Current Living Situation: Homeless Current Living Situation Comment: Cousin current occupational status: disabled How many Children do You have: 0 Feels Safe at Home: Yes Childhood Exposure to Second-Hand Smoke: No caffeine: Yes during the past year weight has: remained stable Dental Care, Regularly: Yes Physical Activity Frequency: Daily Seatbelt Use: always Sunscreen Use: No Do you think of yourself as: straight/heterosexual Sexual Activity: has been sexually active within the last 12 months Gender Identity: Male Assistive Devices: None Allergies Allergies Allergy/AdvReac Type Severity Reaction Status Date / Time codeine Allergy Intermediate Rash Verified 08/01/22 22:26 erythromycin base Allergy Unknown HAPPENED Verified 08/01/22 22:26 A SMALL CHILD Home Meds Home Medications Medication Instructions Recorded Confirmed acetaminophen 500 mg tablet 100 - 1,500 mg PO Q8 PRN Pain 05/15/22 08/01/22 (Tylenol Extra Strength) gabapentin 100 mg capsule 100 mg PO TID 07/11/22 08/01/22 ondansetron 4 mg disintegrating 4 mg PO UD PRN Nausea And Vomiting 07/11/22 08/01/22 tablet Previous Rx's Medication Instructions Recorded blood sugar diagnostic (OneTouch #100 ea 07/31/21 Verio test strips) insulin syringe-needle U-100 0.3 #100 ea 07/31/21 mL 31 gauge x 15/64" lancets 33 gauge (OneTouch Delica #100 ea 07/31/21 Lancets) albuterol sulfate 90 mcg/actuation 2 puff inhalation Q6H PRN 06/07/22 aerosol inhaler shortness of breath or wheezing #8.5 grams insulin glargine 100 unit/mL (3 15 unit (0.15 mL) SC AMHS #15 mL 07/04/22 mL) subcutaneous pen (Lantus Solostar U-100 Insulin) insulin lispro 100 unit/mL 20 unit (0.2 mL) subcut TID PRN 07/26/22 subcutaneous cartridge (Humalog hyperglycemia #15 mL U-100 Insulin) Results & Data (ED) Vital Signs Vital Signs - 24 hr 08/01/22 19:18 08/01/22 19:48 08/01/22 19:51 Temperature 36.7 C Temperature Source Temporal Artery Scan Pulse Rate 143 H 126 H 128 H Pulse Rate [Apical] Pulse Rate from SpO2 Sensor Respiratory Rate 18 20 21 Respiratory Effort / Characteristics Non-Labored Spontaneous Respiratory Depth Normal Respiratory Pattern Blood Pressure 93/64 L 117/76 Blood Pressure [Left Arm] Blood Pressure Mean 73 89 Blood Pressure Mean [Left Arm] Blood Pressure Position Sitting Pulse Oximetry 99 100 Oxygen Delivery Method Room Air Room Air Sepsis Recent Fever Within 48 Hours No Sepsis New/Unexplained Change in Mental Status No Sepsis Action Taken by Nursing No Action Required 08/01/22 19:54 08/01/22 20:17 08/01/22 19:47 Temperature Temperature Source Pulse Rate 130 H Pulse Rate [Apical] 130 H Pulse Rate from SpO2 Sensor Respiratory Rate 17 Respiratory Effort / Characteristics Non-Labored Respiratory Depth Normal Respiratory Pattern Regular Blood Pressure Blood Pressure [Left Arm] 127/80 Blood Pressure Mean Blood Pressure Mean [Left Arm] 95 Blood Pressure Position Pulse Oximetry 97 96 Oxygen Delivery Method Room Air Room Air Sepsis Recent Fever Within 48 Hours Sepsis New/Unexplained Change in Mental Status Sepsis Action Taken by Nursing 08/01/22 20:00 08/01/22 20:14 08/01/22 20:15 Temperature Temperature Source Pulse Rate 128 H 126 H 132 H Pulse Rate [Apical] Pulse Rate from SpO2 Sensor Respiratory Rate 21 19 19 Respiratory Effort / Characteristics Respiratory Depth Respiratory Pattern Blood Pressure 125/78 127/80 Blood Pressure [Left Arm] Blood Pressure Mean 93 95 Blood Pressure Mean [Left Arm] Blood Pressure Position Pulse Oximetry Oxygen Delivery Method Sepsis Recent Fever Within 48 Hours Sepsis New/Unexplained Change in Mental Status Sepsis Action Taken by Nursing 08/01/22 20:20 08/01/22 20:30 08/01/22 20:40 Temperature Temperature Source Pulse Rate 130 H 125 H 134 H Pulse Rate [Apical] Pulse Rate from SpO2 Sensor 134 H Respiratory Rate 19 18 17 Respiratory Effort / Characteristics Respiratory Depth Respiratory Pattern Blood Pressure 132/82 137/75 168/99 H Blood Pressure [Left Arm] Blood Pressure Mean 98 95 122 Blood Pressure Mean [Left Arm] Blood Pressure Position Pulse Oximetry 99 100 Oxygen Delivery Method Room Air Room Air Sepsis Recent Fever Within 48 Hours Sepsis New/Unexplained Change in Mental Status Sepsis Action Taken by Nursing 08/01/22 20:57 08/01/22 21:00 08/01/22 21:02 Temperature Temperature Source Pulse Rate 130 H Pulse Rate [Apical] Pulse Rate from SpO2 Sensor 136 H 131 H Respiratory Rate 23 Respiratory Effort / Characteristics Respiratory Depth Respiratory Pattern Blood Pressure 133/78 Blood Pressure [Left Arm] Blood Pressure Mean 96 Blood Pressure Mean [Left Arm] Blood Pressure Position Pulse Oximetry 100 100 100 Oxygen Delivery Method Room Air Room Air Room Air Sepsis Recent Fever Within 48 Hours Sepsis New/Unexplained Change in Mental Status Sepsis Action Taken by Nursing 08/01/22 21:10 08/01/22 21:15 08/01/22 21:20 Temperature Temperature Source Pulse Rate 128 H 126 H 129 H Pulse Rate [Apical] Pulse Rate from SpO2 Sensor Respiratory Rate 19 13 16 Respiratory Effort / Characteristics Respiratory Depth Respiratory Pattern Blood Pressure 138/82 146/87 H Blood Pressure [Left Arm] Blood Pressure Mean 100 106 Blood Pressure Mean [Left Arm] Blood Pressure Position Pulse Oximetry 100 100 100 Oxygen Delivery Method Room Air Room Air Room Air Sepsis Recent Fever Within 48 Hours Sepsis New/Unexplained Change in Mental Status Sepsis Action Taken by Nursing 08/01/22 21:30 08/01/22 21:40 08/01/22 21:45 Temperature Temperature Source Pulse Rate 128 H 137 H 134 H Pulse Rate [Apical] Pulse Rate from SpO2 Sensor Respiratory Rate 16 18 22 Respiratory Effort / Characteristics Respiratory Depth Respiratory Pattern Blood Pressure 142/81 H 164/101 H Blood Pressure [Left Arm] Blood Pressure Mean 101 122 Blood Pressure Mean [Left Arm] Blood Pressure Position Pulse Oximetry 100 99 99 Oxygen Delivery Method Room Air Room Air Room Air Sepsis Recent Fever Within 48 Hours Sepsis New/Unexplained Change in Mental Status Sepsis Action Taken by Nursing 08/01/22 21:50 08/01/22 22:00 08/01/22 22:10 Temperature Temperature Source Pulse Rate 132 H 133 H 143 H Pulse Rate [Apical] Pulse Rate from SpO2 Sensor Respiratory Rate 17 18 15 Respiratory Effort / Characteristics Respiratory Depth Respiratory Pattern Blood Pressure 142/82 H 127/76 111/80 Blood Pressure [Left Arm] Blood Pressure Mean 102 93 90 Blood Pressure Mean [Left Arm] Blood Pressure Position Pulse Oximetry 99 100 99 Oxygen Delivery Method Room Air Room Air Room Air Sepsis Recent Fever Within 48 Hours Sepsis New/Unexplained Change in Mental Status Sepsis Action Taken by Nursing 08/01/22 22:15 08/01/22 22:20 08/01/22 22:30 Temperature Temperature Source Pulse Rate 144 H 139 H 138 H Pulse Rate [Apical] Pulse Rate from SpO2 Sensor Respiratory Rate 21 18 20 Respiratory Effort / Characteristics Respiratory Depth Respiratory Pattern Blood Pressure 140/80 121/69 Blood Pressure [Left Arm] Blood Pressure Mean 100 86 Blood Pressure Mean [Left Arm] Blood Pressure Position Pulse Oximetry 99 98 Oxygen Delivery Method Room Air Room Air Sepsis Recent Fever Within 48 Hours Sepsis New/Unexplained Change in Mental Status Sepsis Action Taken by Nursing 08/01/22 22:40 08/01/22 22:45 08/01/22 22:50 Temperature Temperature Source Pulse Rate 139 H 138 H 135 H Pulse Rate [Apical] Pulse Rate from SpO2 Sensor Respiratory Rate 18 19 18 Respiratory Effort / Characteristics Respiratory Depth Respiratory Pattern Blood Pressure 123/67 97/60 L Blood Pressure [Left Arm] Blood Pressure Mean 85 72 Blood Pressure Mean [Left Arm] Blood Pressure Position Pulse Oximetry 98 97 98 Oxygen Delivery Method Room Air Room Air Room Air Sepsis Recent Fever Within 48 Hours Sepsis New/Unexplained Change in Mental Status Sepsis Action Taken by Nursing 08/01/22 23:00 08/01/22 23:10 08/01/22 23:15 Temperature Temperature Source Pulse Rate 135 H 134 H 135 H Pulse Rate [Apical] Pulse Rate from SpO2 Sensor Respiratory Rate 18 18 18 Respiratory Effort / Characteristics Respiratory Depth Respiratory Pattern Blood Pressure 114/67 109/67 Blood Pressure [Left Arm] Blood Pressure Mean 82 81 Blood Pressure Mean [Left Arm] Blood Pressure Position Pulse Oximetry 98 98 98 Oxygen Delivery Method Room Air Room Air Room Air Sepsis Recent Fever Within 48 Hours Sepsis New/Unexplained Change in Mental Status Sepsis Action Taken by Nursing Laboratory Data 08/01/22 20:19 08/01/22 20:19 Lab Results 08/01/22 08/01/22 08/01/22 Range/Units 19:20 19:50 20:19 WBC 12.86 H (4.8-10.8) K/ul RBC 4.47 L (4.70-6.10) M/uL Hgb 15.6 (14.0-18.0) g/dl Hct 45.8 (42.0-52.0) % MCV 102.5 H (80.0-100.0) fL MCH 34.9 H (25.0-34.0) pg MCHC 34.1 (32.0-36.0) g/dL RDW Std Deviation 53.5 H (36.4-46.3) fL RDW Coeff of Margarita 14.1 (11.5-14.5) % Plt Count 444 H (130-400) K/uL MPV 8.8 L (9.4-12.4) fL Immature Gran % (Auto) 1.2 % Neut % (Auto) 81.6 % Lymph % (Auto) 9.3 % Powell % (Auto) 6.1 % Eos % (Auto) 1.0 % Baso % (Auto) 0.8 % Neut # (Auto) 10.50 H (1.40-6.50) K/uL Lymph # (Auto) 1.20 (1.2-3.4) K/uL Powell # (Auto) 0.78 H (0.11-0.59) K/uL Eos # (Auto) 0.13 (0-0.50) K/uL Baso # (Auto) 0.10 (0-0.2) K/uL Immature Gran # (Auto) 0.15 (0.01-0.20) K/uL PT (9.0-12.0) Seconds INR (0.9-1.1) VBG pH (7.36-7.41) VBG pCO2 (38-50) mmHg VBG pO2 mmHg VBG HCO3 mmol/L VBG O2 Saturation % VBG Base Excess mEq/L Sodium (136-145) mmol/L Potassium (3.5-5.1) mmol/L Chloride (98-107) mmol/L Carbon Dioxide (21-32) mmol/L Anion Gap (3-11) BUN (6-23) mg/dl Creatinine (0.6-1.4) mg/dl Est Cr Clr Drug Dosing ml/min Est GFR ( Amer) ml/min Est GFR (Non-Af Amer) ml/min BUN/Creatinine Ratio (10-20) Glucose (70-99(Fasting)) mg/dl POC Glucose 567 H* (70-99) mg/dl Lactate (0.4-2.0) mmol/L Calcium (8.6-10.3) mg/dl Magnesium (1.7-2.4) mg/dl Total Bilirubin (0.2-1.0) mg/dl Direct Bilirubin (0-0.2) mg/dl AST (13-39) U/L ALT (7-52) U/L Alkaline Phosphatase (34-104) U/L Troponin I High Sens (0-20) pg/ml Total Protein (6.0-8.3) gm/dl Albumin (3.4-5.0) gm/dl Procalcitonin 0.23 (0-0.5) ng/ml Urine Color Urine Appearance (Clear) Urine pH (4.5-7.5) Ur Specific [place] (1.000-1.030) Urine Protein (Negative) Urine Glucose (UA) (Negative) Urine Ketones (Negative) Urine Blood (Negative) Urine Nitrite (Negative) Urine Bilirubin (Negative) Urine Urobilinogen (Negative) Ur Leukocyte Esterase (Negative) SARS-CoV-2, RNA, NAAT (NEGATIVE) 08/01/22 08/01/22 08/01/22 Range/Units 20:19 20:19 20:19 WBC (4.8-10.8) K/ul RBC (4.70-6.10) M/uL Hgb (14.0-18.0) g/dl Hct (42.0-52.0) % MCV (80.0-100.0) fL MCH (25.0-34.0) pg MCHC (32.0-36.0) g/dL RDW Std Deviation (36.4-46.3) fL RDW Coeff of Margarita (11.5-14.5) % Plt Count (130-400) K/uL MPV (9.4-12.4) fL Immature Gran % (Auto) % Neut % (Auto) % Lymph % (Auto) % Powell % (Auto) % Eos % (Auto) % Baso % (Auto) % Neut # (Auto) (1.40-6.50) K/uL Lymph # (Auto) (1.2-3.4) K/uL [place] # (Auto) (0.11-0.59) K/uL Eos # (Auto) (0-0.50) K/uL Baso # (Auto) (0-0.2) K/uL Immature Gran # (Auto) (0.01-0.20) K/uL PT 10.4 (9.0-12.0) Seconds INR 0.9 (0.9-1.1) VBG pH (7.36-7.41) VBG pCO2 (38-50) mmHg VBG pO2 mmHg VBG HCO3 mmol/L VBG O2 Saturation % VBG Base Excess mEq/L Sodium 130 L (136-145) mmol/L Potassium 5.0 (3.5-5.1) mmol/L Chloride 85 L (98-107) mmol/L Carbon Dioxide 13 L (21-32) mmol/L Anion Gap 32 H (3-11) BUN 40 H (6-23) mg/dl Creatinine 1.75 H (0.6-1.4) mg/dl Est Cr Clr Drug Dosing 51.3 ml/min Est GFR ( Amer) 55.6 ml/min Est GFR (Non-Af Amer) 48.0 ml/min BUN/Creatinine Ratio 22.9 H (10-20) Glucose 684 H* (70-99(Fasting)) mg/dl POC Glucose (70-99) mg/dl Lactate 2.9 H* (0.4-2.0) mmol/L Calcium 9.6 (8.6-10.3) mg/dl Magnesium 2.7 H (1.7-2.4) mg/dl Total Bilirubin 0.7 (0.2-1.0) mg/dl Direct Bilirubin 0.0 (0-0.2) mg/dl AST 37 (13-39) U/L ALT 51 (7-52) U/L Alkaline Phosphatase 174 H (34-104) U/L Troponin I High Sens 7.9 (0-20) pg/ml Total Protein 7.8 (6.0-8.3) gm/dl Albumin 4.4 (3.4-5.0) gm/dl Procalcitonin (0-0.5) ng/ml Urine Color Urine Appearance (Clear) Urine pH (4.5-7.5) Ur Specific [place] (1.000-1.030) Urine Protein (Negative) Urine Glucose (UA) (Negative) Urine Ketones (Negative) Urine Blood (Negative) Urine Nitrite (Negative) Urine Bilirubin (Negative) Urine Urobilinogen (Negative) Ur Leukocyte Esterase (Negative) SARS-CoV-2, RNA, NAAT (NEGATIVE) 08/01/22 08/01/22 08/01/22 Range/Units 20:19 20:59 21:03 WBC (4.8-10.8) K/ul RBC (4.70-6.10) M/uL Hgb (14.0-18.0) g/dl Hct (42.0-52.0) % MCV (80.0-100.0) fL MCH (25.0-34.0) pg MCHC (32.0-36.0) g/dL RDW Std Deviation (36.4-46.3) fL RDW Coeff of Margarita (11.5-14.5) % Plt Count (130-400) K/uL MPV (9.4-12.4) fL Immature Gran % (Auto) % Neut % (Auto) % Lymph % (Auto) % Powell % (Auto) % Eos % (Auto) % Baso % (Auto) % Neut # (Auto) (1.40-6.50) K/uL Lymph # (Auto) (1.2-3.4) K/uL [place] # (Auto) (0.11-0.59) K/uL Eos # (Auto) (0-0.50) K/uL Baso # (Auto) (0-0.2) K/uL Immature Gran # (Auto) (0.01-0.20) K/uL PT (9.0-12.0) Seconds INR (0.9-1.1) VBG pH 7.23 L (7.36-7.41) VBG pCO2 34 L (38-50) mmHg VBG pO2 36 mmHg VBG HCO3 14 mmol/L VBG O2 Saturation < 60.0 % VBG Base Excess -12.3 mEq/L Sodium (136-145) mmol/L Potassium (3.5-5.1) mmol/L Chloride (98-107) mmol/L Carbon Dioxide (21-32) mmol/L Anion Gap (3-11) BUN (6-23) mg/dl Creatinine (0.6-1.4) mg/dl Est Cr Clr Drug Dosing ml/min Est GFR ( Amer) ml/min Est GFR (Non-Af Amer) ml/min BUN/Creatinine Ratio (10-20) Glucose (70-99(Fasting)) mg/dl POC Glucose > 600 H* (70-99) mg/dl Lactate (0.4-2.0) mmol/L Calcium (8.6-10.3) mg/dl Magnesium (1.7-2.4) mg/dl Total Bilirubin (0.2-1.0) mg/dl Direct Bilirubin (0-0.2) mg/dl AST (13-39) U/L ALT (7-52) U/L Alkaline Phosphatase (34-104) U/L Troponin I High Sens (0-20) pg/ml Total Protein (6.0-8.3) gm/dl Albumin (3.4-5.0) gm/dl Procalcitonin (0-0.5) ng/ml Urine Color Yellow Urine Appearance Clear (Clear) Urine pH 5.0 (4.5-7.5) Ur Specific [place] 1.026 (1.000-1.030) Urine Protein Negative (Negative) Urine Glucose (UA) 3+ H (Negative) Urine Ketones 3+ H (Negative) Urine Blood Negative (Negative) Urine Nitrite Negative (Negative) Urine Bilirubin Negative (Negative) Urine Urobilinogen Negative (Negative) Ur Leukocyte Esterase Negative (Negative) SARS-CoV-2, RNA, NAAT (NEGATIVE) 08/01/22 08/01/22 08/01/22 Range/Units 21:13 21:45 22:33 WBC (4.8-10.8) K/ul RBC (4.70-6.10) M/uL Hgb (14.0-18.0) g/dl Hct (42.0-52.0) % MCV (80.0-100.0) fL MCH (25.0-34.0) pg MCHC (32.0-36.0) g/dL RDW Std Deviation (36.4-46.3) fL RDW Coeff of Margarita (11.5-14.5) % Plt Count (130-400) K/uL MPV (9.4-12.4) fL Immature Gran % (Auto) % Neut % (Auto) % Lymph % (Auto) % [place] % (Auto) % Eos % (Auto) % Baso % (Auto) % Neut # (Auto) (1.40-6.50) K/uL Lymph # (Auto) (1.2-3.4) K/uL [place] # (Auto) (0.11-0.59) K/uL Eos # (Auto) (0-0.50) K/uL Baso # (Auto) (0-0.2) K/uL Immature Gran # (Auto) (0.01-0.20) K/uL PT (9.0-12.0) Seconds INR (0.9-1.1) VBG pH (7.36-7.41) VBG pCO2 (38-50) mmHg VBG pO2 mmHg VBG HCO3 mmol/L VBG O2 Saturation % VBG Base Excess mEq/L Sodium (136-145) mmol/L Potassium (3.5-5.1) mmol/L Chloride (98-107) mmol/L Carbon Dioxide (21-32) mmol/L Anion Gap (3-11) BUN (6-23) mg/dl Creatinine (0.6-1.4) mg/dl Est Cr Clr Drug Dosing ml/min Est GFR ( Amer) ml/min Est GFR (Non-Af Amer) ml/min BUN/Creatinine Ratio (10-20) Glucose (70-99(Fasting)) mg/dl POC Glucose 592 H* (70-99) mg/dl Lactate 2.6 H* (0.4-2.0) mmol/L Calcium (8.6-10.3) mg/dl Magnesium (1.7-2.4) mg/dl Total Bilirubin (0.2-1.0) mg/dl Direct Bilirubin (0-0.2) mg/dl AST (13-39) U/L ALT (7-52) U/L Alkaline Phosphatase (34-104) U/L Troponin I High Sens (0-20) pg/ml Total Protein (6.0-8.3) gm/dl Albumin (3.4-5.0) gm/dl Procalcitonin (0-0.5) ng/ml Urine Color Urine Appearance (Clear) Urine pH (4.5-7.5) Ur Specific [place] (1.000-1.030) Urine Protein (Negative) Urine Glucose (UA) (Negative) Urine Ketones (Negative) Urine Blood (Negative) Urine Nitrite (Negative) Urine Bilirubin (Negative) Urine Urobilinogen (Negative) Ur Leukocyte Esterase (Negative) SARS-CoV-2, RNA, NAAT NEGATIVE (NEGATIVE) 08/01/22 Range/Units 23:26 WBC (4.8-10.8) K/ul RBC (4.70-6.10) M/uL Hgb (14.0-18.0) g/dl Hct (42.0-52.0) % MCV (80.0-100.0) fL MCH (25.0-34.0) pg MCHC (32.0-36.0) g/dL RDW Std Deviation (36.4-46.3) fL RDW Coeff of Margarita (11.5-14.5) % Plt Count (130-400) K/uL MPV (9.4-12.4) fL Immature Gran % (Auto) % Neut % (Auto) % Lymph % (Auto) % [place] % (Auto) % Eos % (Auto) % Baso % (Auto) % Neut # (Auto) (1.40-6.50) K/uL Lymph # (Auto) (1.2-3.4) K/uL [place] # (Auto) (0.11-0.59) K/uL Eos # (Auto) (0-0.50) K/uL Baso # (Auto) (0-0.2) K/uL Immature Gran # (Auto) (0.01-0.20) K/uL PT (9.0-12.0) Seconds INR (0.9-1.1) VBG pH (7.36-7.41) VBG pCO2 (38-50) mmHg VBG pO2 mmHg VBG HCO3 mmol/L VBG O2 Saturation % VBG Base Excess mEq/L Sodium (136-145) mmol/L Potassium (3.5-5.1) mmol/L Chloride (98-107) mmol/L Carbon Dioxide (21-32) mmol/L Anion Gap (3-11) BUN (6-23) mg/dl Creatinine (0.6-1.4) mg/dl Est Cr Clr Drug Dosing ml/min Est GFR ( Amer) ml/min Est GFR (Non-Af Amer) ml/min BUN/Creatinine Ratio (10-20) Glucose (70-99(Fasting)) mg/dl POC Glucose 514 H* (70-99) mg/dl Lactate (0.4-2.0) mmol/L Calcium (8.6-10.3) mg/dl Magnesium (1.7-2.4) mg/dl Total Bilirubin (0.2-1.0) mg/dl Direct Bilirubin (0-0.2) mg/dl AST (13-39) U/L ALT (7-52) U/L Alkaline Phosphatase (34-104) U/L Troponin I High Sens (0-20) pg/ml Total Protein (6.0-8.3) gm/dl Albumin (3.4-5.0) gm/dl Procalcitonin (0-0.5) ng/ml Urine Color Urine Appearance (Clear) Urine pH (4.5-7.5) Ur Specific [place] (1.000-1.030) Urine Protein (Negative) Urine Glucose (UA) (Negative) Urine Ketones (Negative) Urine Blood (Negative) Urine Nitrite (Negative) Urine Bilirubin (Negative) Urine Urobilinogen (Negative) Ur Leukocyte Esterase (Negative) SARS-CoV-2, RNA, NAAT (NEGATIVE) Administered Medications Insulin Human Regular 250 (units/ Sodium Chloride) 250 mls @ 6.4 mls/hr IV .Q24H RISSA; Protocol Stop: 08/31/22 21:14 Last Titration: 08/01/22 23:28 Dose: 7.7 units/hr, 7.7 mls/hr Documented By: DONNA Co-signed By: TYRA Admin: 08/01/22 22:19 Dose: 6.4 units/hr, 6.4 mls/hr Documented By: DONNA Co-signed By: SASHA Sodium Bicarbonate 150 meq/ (Sterile Water) 1,150 mls @ 100 mls/hr IV .[id number] RISSA Stop: 08/02/22 10:29 Last Admin: 08/01/22 23:34 Dose: 100 mls/hr Documented By: DONNA Discontinued Medications Sodium Chloride (Nss 1000ml) 2,000 mls @ 999 mls/hr IV .Q2H1M ONE Stop: 08/01/22 21:24 Last Infusion: 08/01/22 22:16 Dose: 0 mls/hr Documented By: Admin: 08/01/22 20:23 Dose: 999 mls/hr Documented By: DONNA Sodium Chloride (Nss 1000ml) 1,000 mls @ 999 mls/hr IV .Q1H1M ONE Stop: 08/01/22 22:12 Last Infusion: 08/01/22 22:35 Dose: 0 mls/hr Documented By: Admin: 08/01/22 21:37 Dose: 999 mls/hr Documented By: DONNA Insulin Human Regular (Novolin-R Bolus From Bag) 6.4 units IV 2200 ONE Stop: 08/01/22 22:01 Last Admin: 08/01/22 22:23 Dose: 6.4 units Documented By: DONNA Co-signed By: SASHA Miscellaneous (Dka Goal Range 150-250 Mg/Dl) 1 each N/A ONE ONE Stop: 08/01/22 21:51 Last Admin: 08/01/22 23:45 Dose: Not Given Documented By: CAMDEN Discharge Plan Visit Data Chief Complaint: Hyperglycemia Stated Complaint: HYPERGLYCEMIA ED Provider: Sam Kevin Discharge Problem: DKA (diabetic ketoacidosis) Patient Disposition: Admitted As Inpatient Discharge Instructions Interventions: ED Discharge Assessment Last Done: 08/01/22 23:47 DKA (diabetic ketoacidosis) Qualifiers: Diabetes mellitus complication detail: without coma
[2022-08-01 20:38] LABS: Base Excess VBG -12.3 mEq/L; HCO3 VBG 14 mmol/L; Oxygen Saturation VBG < 60.0 %; PCO2 VBG 34 mmHg (38-50); PO2 VBG 36 mmHg; pH VBG 7.23 (7.36-7.41)
[2022-08-01 20:53] LABS: Basophils % (auto) 0.8 %; Eosinophils # (auto) 0.13 K/uL (0-0.50); Hematocrit (blood only) 45.8 % (42.0-52.0); Hemoglobin 15.6 g/dl (14.0-18.0); Immature Granulocytes # (auto) 0.15 K/uL (0.01-0.20); Immature Granulocytes % (auto) 1.2 %; Lymphocytes % (auto) 9.3 %; Mean Corpuscular Hemoglobin 34.9 pg (25.0-34.0); Mean Corpuscular Hgb Conc 34.1 g/dL (32.0-36.0); Mean Corpuscular Volume 102.5 fL (80.0-100.0); Mean Platelet Volume 8.8 fL (9.4-12.4); Monocytes # (auto) 0.78 K/uL (0.11-0.59); Monocytes % (auto) 6.1 %; Neutrophils % (auto) 81.6 %; Platelet Count 444 K/uL (130-400); RDW Coefficient of Variation 14.1 % (11.5-14.5); RDW Standard Deviation 53.5 fL (36.4-46.3); Red Blood Count 4.47 M/uL (4.70-6.10); White Blood Count 12.86 K/ul (4.8-10.8)
[2022-08-01 21:06] LABS: Albumin Level 4.4 gm/dl (3.4-5.0); BUN Creatinine Ratio 22.9 (10-20); Bilirubin,Total 0.7 mg/dl (0.2-1.0); Calcium 9.6 mg/dl (8.6-10.3); Creatinine Clr Calc Pharmacy 51.3 ml/min; Est GFR (African American) 55.6 ml/min; Magnesium 2.7 mg/dl (1.7-2.4); Total Protein 7.8 gm/dl (6.0-8.3)
[2022-08-01] MEDS ORDERED: GLUCAGON FOR INJ 1 MG VIAL SQ PRN (21:08)
[2022-08-01] MEDS ORDERED: CARBOHYDRATES FOR HYPOGLYCEMIA PO PRN (21:08)
[2022-08-01] MEDS ORDERED: GLUCOSE 10 TAB/TUBE PO PRN (21:08)
[2022-08-01] MEDS ORDERED: DEXTROSE 50% 50 ML SYRINGE IV PRN (21:08)
[2022-08-01] MEDS ORDERED: GLUCOSE 40% GEL 15 GM TUBE PO PRN (21:08)
[2022-08-01 21:10] LABS: INR 0.9 (0.9-1.1); Prothrombin Time 10.4 Seconds (9.0-12.0)
[2022-08-01] MEDS ORDERED: SODIUM CHLORIDE 0.9% 1000ML 1,000 ML IV ONE (21:12)
[2022-08-01 21:16] LABS: Troponin I High Sensitivity 7.9 pg/ml (0-20)
[2022-08-01] MEDS ORDERED: DKA GOAL RANGE 150-250 mg/dl ONE (21:50)
[2022-08-01 21:54] LABS: Appearance Urine Clear (Clear); Bilirubin Urine Negative (Negative); Blood Urine Negative (Negative); Color Urine Yellow; Glucose Urine UA 3+ (Negative); Ketones Urine 3+ (Negative); Leukocyte Esterase Urine Negative (Negative); Nitrite Urine Negative (Negative); Protein Urine Negative (Negative); Specific Gravity Urine 1.026 (1.000-1.030); Urobilinogen Urine Negative (Negative)
[2022-08-01] MEDS ORDERED: NovoLIN-R BOLUS FROM BAG IV ONE (22:00)
[2022-08-01] MEDS: INSULIN REGULAR 250 UNITS in SODIUM CHLORIDE 0.9% 247.5 ML IV SCH ×2 (22:19→22:23)
--- NOTE | 2022-08-01 22:29 | History & Physical Report ---
Date of Service August 01, 2022 Assessment & Plan (1) DKA (diabetic ketoacidosis): Plan: 37 year old male w/ PmHx T1DM w/ neuropathy and recurrent DKA, GERD, depression admitted for DKA. T1DM/DKA: -WBC 12.86, glucose 684, VBG pH 7.23, AG 32, Bicarb 13. -Tachycardic to 120's-140's. -Na 130, corrected sodium around 142. -Possibly due to non-compliance given history. -CXR clear, U/A w/ glucose and ketones, covid negative. No obvious source of infection. -Given 3L NSS, started on insulin drip with bolus in ED. -Started patient on 150meq in sterile water at 100ml/hr x1bag. -BMP q4h until gap closure. -DKA protocol, transition when anion gap. Pharmacy glycemic consult. Hypoglycemia protocol. -Admit to ICU due to large anion gap. BERNARD: -Creatinine 1.75, eGFR 48. -Baseline 0.8-1. -Likely due to volume depletion. -Q4h BMP until gap closure, trend kidney function with fluid rehydration. MDD: -No medications at this time. F/E/N/GI: NPO until gap closure. DVT Prophylaxis: SCDs. Code status: Full code. Dispo: ICU. (2) BERNARD (acute kidney injury): (3) Nausea & vomiting: (4) Type I diabetes mellitus: (5) MDD (major depressive disorder), recurrent episode, moderate: History of Present Illness Chief Complaint: N/V Primary Care Provider: Carolyn Story MD Laron is a 37 year old male w/ PmHx T1DM w/ neuropathy and recurrent DKA, GERD, depression who came into the ED for nausea/vomiting for 3 days. Patient groggy but able to relay some history at the bedside. Has had nausea/vomiting and feeling crappy for past 3 days. Vomit has been green to brown in consistency and no blood visualized. He has thrown up twice since being in the ED. Patient states he is compliant with insulin medications however not sure how much he takes everyday. Denies fevers, chills, cough, shortness of breath, chest pain, diarrhea, constipation. ED course significant for WBC 12.86, VBG pH 7.23, Na 130, K 5.0, Cl 85, Bicarb 13, anion gap 32, glucose of 684, lactate 2.9. He was given 3L NSS and started on insulin drip. Allergies Allergy/AdvReac Type Severity Reaction Status Date / Time codeine Allergy Intermediate Rash Verified 08/01/22 22:26 erythromycin base Allergy Unknown HAPPENED Verified 08/01/22 22:26 A SMALL CHILD Home Medications Medication Instructions Recorded Confirmed Type blood sugar diagnostic (OneTouch #100 ea 07/31/21 08/01/22 Rx Verio test strips) insulin syringe-needle U-100 0.3 #100 ea 07/31/21 08/01/22 Rx mL 31 gauge x 15/64" lancets 33 gauge (OneTouch Delica #100 ea 07/31/21 08/01/22 Rx Lancets) acetaminophen 500 mg tablet 100 - 1,500 mg PO Q8 PRN Pain 05/15/22 08/01/22 History (Tylenol Extra Strength) albuterol sulfate 90 mcg/actuation 2 puff inhalation Q6H PRN 06/07/22 08/01/22 Rx aerosol inhaler shortness of breath or wheezing #8.5 grams insulin glargine 100 unit/mL (3 15 unit (0.15 mL) SC AMHS #15 mL 07/04/22 08/01/22 Rx mL) subcutaneous pen (Lantus Solostar U-100 Insulin) gabapentin 100 mg capsule 100 mg PO TID 07/11/22 08/01/22 History insulin lispro 100 unit/mL 20 unit (0.2 mL) subcut TID PRN 07/26/22 08/01/22 Rx subcutaneous cartridge (Humalog hyperglycemia #15 mL U-100 Insulin) Past Med/Surg History Medical History Diabetic peripheral neuropathy GERD (gastroesophageal reflux disease) Type I diabetes mellitus Surgical History No significant past surgical history Family History Other Diabetes Social History Smoking Status: Current every day smoker Tobacco Type: Cigarettes Cigarettes Per Day: 1 pack; Second Hand Exposure: No; Hx Alcohol Use: No Hx Substance Use: No Preferred Language: Mongolian Communication Ability: Effective Visual Impairment: Limited Hearing Ability: Normal Riprap Placer Required: No Beliefs That Will Affect Care: None marital status: Single Current Living Situation: Homeless Current Living Situation Comment: Cousin current occupational status: disabled How many Children do You have: 0 Feels Safe at Home: Yes Childhood Exposure to Second-Hand Smoke: No caffeine: Yes during the past year weight has: remained stable Dental Care, Regularly: Yes Physical Activity Frequency: Daily Seatbelt Use: always Sunscreen Use: No Do you think of yourself as: straight/heterosexual Sexual Activity: has been sexually active within the last 12 months Gender Identity: Male Assistive Devices: None Review of Systems Review of Systems: As per HPI. Physical Exam Constitutional: WD/WN, vitals as above Eyes: PERRL, conjunctivae normal, anicteric sclerae ENMT: Mucous membranes appear dry. Respiratory: normal respiratory effort, lungs clear to auscultation Cardiovascular: Rate/Rhythm: + tachycardic Heart Sounds: normal S1 and normal S2 No peripheral edema. Gastrointestinal (Abdomen): normal bowel sounds, soft, nontender, no hepatosplenomegaly Psychiatric: Alert and oriented to person place and time, groggy in responses. Results & Data Results & Data Vital Signs (Past 12 Hours) Vital Signs Temp Pulse Pulse Resp BP BP Pulse Ox 08/01/22 21:15 126 H 13 100 08/01/22 21:10 128 H 19 138/82 100 08/01/22 21:02 130 H 23 133/78 100 08/01/22 21:00 100 08/01/22 20:57 100 08/01/22 20:40 134 H 17 168/99 H 100 08/01/22 20:30 125 H 18 137/75 99 08/01/22 20:20 130 H 19 132/82 08/01/22 20:15 132 H 19 127/80 08/01/22 20:14 126 H 19 125/78 08/01/22 20:00 128 H 21 08/01/22 19:47 130 H 08/01/22 20:17 130 H 17 127/80 96 08/01/22 19:54 97 08/01/22 19:51 128 H 21 117/76 100 08/01/22 19:48 126 H 20 08/01/22 19:18 36.7 C 143 H 18 93/64 L 99 O2 Del Method 08/01/22 21:15 Room Air 08/01/22 21:10 Room Air 08/01/22 21:02 Room Air 08/01/22 21:00 Room Air 08/01/22 20:57 Room Air 08/01/22 20:40 Room Air 08/01/22 20:30 Room Air 08/01/22 20:20 08/01/22 20:15 08/01/22 20:14 08/01/22 20:00 08/01/22 19:47 08/01/22 20:17 Room Air 08/01/22 19:54 Room Air 08/01/22 19:51 Room Air 08/01/22 19:48 08/01/22 19:18 Room Air Critical Care Time 45 minutes Supervising Physician Co-Signing Physician Notes Attending addendum: I have physically seen this patient, have supervised the medical residents activities, and agree with the H&P unless as otherwise noted. Assessment and Plan: Diabetic ketoacidosis- Anion gap 32 with a VBG pH 7.23 WBC 12.86, glucose 684, bicarb 13 Tachycardia with heart rate in the 120s to 140s History of medical noncompliance, as likely cause of today as well Status post 3 L normal saline in the ED Insulin drip and bicarbonate drip Serial BMP, VBG, magnesium and phosphorus every 4 hours until gap closes Admit to the ICU due to large anion gap and acidosis Acute kidney injury- Creatinine 1.75 with base 0.8-1 Retest after IV fluid rehydration as noted above Remaining orders and notations as noted Resident Activity Tracking Resident Involvement: Resident Care Provided Care Provided: Adult Hospital Medicine (1) DKA (diabetic ketoacidosis) Diabetes mellitus complication detail: without coma Diabetes mellitus type: type 1 Qualified Code(s): E10.10 - Type 1 diabetes mellitus with ketoacidosis without coma (3) Nausea & vomiting Vomiting type: unspecified Qualified Code(s): R11.2 - Nausea with vomiting, unspecified
[2022-08-01] MEDS ORDERED: SODIUM BICARBONATE 8.4% 150 MEQ in WATER, STERILE 1,000 ML IV SCH (23:00)
[2022-08-02] MEDS ORDERED: ACETAMINOPHEN 325 MG TAB PO PRN (00:10)
[2022-08-02] MEDS ORDERED: PHARMACY GLYCEMIC MGMT CONSULT PRN (00:10)
[2022-08-02] MEDS ORDERED: PLASMA-LYTE A 1,000 ML IV SCH (00:10)
[2022-08-02] MEDS ORDERED: ONDANSETRON INJ 2 MG/ML 2 ML VIAL IV PRN (00:10)
[2022-08-02] MEDS ORDERED: SODIUM CHLOR 0.45% + 20MEQ KCL 20 MEQ/1,000 ML BAG IV SCH (01:00)
[2022-08-02 01:32] LABS: Basophils % (auto) 0.5 %; Eosinophils # (auto) 0.03 K/uL (0-0.50); Eosinophils % (auto) 0.1 %; Hematocrit (blood only) 44.9 % (42.0-52.0); Hemoglobin 15.2 g/dl (14.0-18.0); Immature Granulocytes # (auto) 0.18 K/uL (0.01-0.20); Immature Granulocytes % (auto) 0.9 %; Lymphocytes # (auto) 1.96 K/uL (1.2-3.4); Lymphocytes % (auto) 9.7 %; Mean Corpuscular Hemoglobin 34.7 pg (25.0-34.0); Mean Corpuscular Hgb Conc 33.9 g/dL (32.0-36.0); Mean Corpuscular Volume 102.5 fL (80.0-100.0); Mean Platelet Volume 8.5 fL (9.4-12.4); Monocytes # (auto) 0.72 K/uL (0.11-0.59); Monocytes % (auto) 3.5 %; Neutrophils % (auto) 85.3 %; Platelet Count 525 K/uL (130-400); RDW Coefficient of Variation 14.1 % (11.5-14.5); RDW Standard Deviation 54.4 fL (36.4-46.3); Red Blood Count 4.38 M/uL (4.70-6.10); White Blood Count 20.29 K/ul (4.8-10.8)
[2022-08-02 02:04] LABS: BUN Creatinine Ratio 22.4 (10-20); Calcium 8.6 mg/dl (8.6-10.3); Creatinine Clr Calc Pharmacy 57.5 ml/min; Est GFR (African American) 63.9 ml/min; Est GFR (Non-African American) 55.1 ml/min; Magnesium 2.4 mg/dl (1.7-2.4); Phosphorus 4.9 mg/dl (2.5-4.9); Potassium 3.8 mmol/L (3.5-5.1)
--- NOTE | 2022-08-02 02:29 | Critical Care Consultation ---
Date of Consultation August 02, 2022 Assessment & Plan (1) DKA (diabetic ketoacidosis): Reason Critically Ill: 37-year-old male with history of diabetes presents to the ICU with metabolic acidosis due to DKA, now on insulin drip and undergoing DKA protocol. Neuro - [facility] ICU: Negative Neuropathycontinue gabapentin Cardiac - Tachycardiahemodynamically stable. Troponin within normal limits. EKG with sinus tachycardia, no ST changes, QTc 433 -Expect improved with fluid resuscitation and treatment of acidosis -Continuous monitoring on telemetry Respiratory - Lungs clear to auscultation. No history of pulmonary disease and currently maintained oxygen saturation on room air. No evidence of labored breathing, no tachypnea Continuous monitoring pulse ox GI - Nauseano issue at this time, Zofran as needed. We will advance diet as tolerated to DM type I diet RENAL/LYTES - AKIlikely prerenal in the setting of severe dehydration with DKA. Should improve with fluid resuscitation and correction of underlying metabolic acidosis. Continue with IV fluids. Monitor - Strict I's and O's ENDO - DKApatient with initial BSG greater than 600, positive ketones in urine, HCO3 13, pH 7.23, anion gap 32 -Every 4 hours BMPs and VBG's -Continue with insulin drip and fluid resuscitation per DKA protocol -We will transition to sliding scale/basal bolus when gap closed and bicarb greater than 15 HEME - H&H stable, monitor routine CBC ID - No indication for infectious process at this time LINES/IV ACCESS - Peripheral IVs DVT PROPHYLAXIS - SCDs I have personally spent 45 minutes of critical care time in the direct management of this patient. This is a life/limb threatening event. This includes time spent evaluating patient, direct bedside care, chart review, placing orders, interpretation of diagnostic studies, discussion with consultants, patient, and family members, as well as other required patient management activities. This time is exclusive of all separately billable procedures, and teaching time and separate from and in addition to any other critical care service time. Thank you for allowing us to participate in the care of this patient. Please refer to my attending physician's documentation for any further recommendations. (2) Type I diabetes mellitus: (3) GERD (gastroesophageal reflux disease): (4) Diabetic peripheral neuropathy: (5) Nausea & vomiting: (6) BERNARD (acute kidney injury): (7) Metabolic acidosis: History of Present Illness Attending Physician: Kenny Aguilar MD History of Present Illness Patient is a 37-year-old male with a past medical history of DM type I, GERD, depression, neuropathy who presented to the emergency department with complaints of dizziness and 3 days of nausea and vomiting. Patient was unsure of how much insulin he takes on a daily basis. In the emergency department he was found to be in DKA with HCO3 13, anion gap 32, pH 7.23, and glucose greater than 600. Patient was started on insulin drip and given 3 L crystalloid bolus. He was temporarily on a bicarb drip. Patient is now transferred to the ICU for further management at this time. On arrival to the ICU the patient is alert and oriented without acute distress. Symptoms of nausea have improved. He denies recent illness or fevers prior to this event, congestion, cough, headaches, syncopal events, changes in vision, shortness of breath, palpitations or chest pain, abdominal pain, diarrhea, or changes in urine frequency. Allergies Allergy/AdvReac Type Severity Reaction Status Date / Time codeine Allergy Intermediate Rash Verified 08/01/22 22:26 erythromycin base Allergy Unknown HAPPENED Verified 08/01/22 22:26 A SMALL CHILD Home Medications Medication Instructions Recorded Confirmed Type blood sugar diagnostic (OneTouch #100 ea 07/31/21 08/01/22 Rx Verio test strips) insulin syringe-needle U-100 0.3 #100 ea 07/31/21 08/01/22 Rx mL 31 gauge x 15/64" lancets 33 gauge (OneTouch Delica #100 ea 07/31/21 08/01/22 Rx Lancets) acetaminophen 500 mg tablet 100 - 1,500 mg PO Q8 PRN Pain 05/15/22 08/01/22 History (Tylenol Extra Strength) albuterol sulfate 90 mcg/actuation 2 puff inhalation Q6H PRN 06/07/22 08/01/22 Rx aerosol inhaler shortness of breath or wheezing #8.5 grams insulin glargine 100 unit/mL (3 15 unit (0.15 mL) SC AMHS #15 mL 07/04/22 08/01/22 Rx mL) subcutaneous pen (Lantus Solostar U-100 Insulin) gabapentin 100 mg capsule 100 mg PO TID 07/11/22 08/01/22 History ondansetron 4 mg disintegrating 4 mg PO UD PRN Nausea And Vomiting 07/11/22 08/01/22 History tablet insulin lispro 100 unit/mL 20 unit (0.2 mL) subcut TID PRN 07/26/22 08/01/22 Rx subcutaneous cartridge (Humalog hyperglycemia #15 mL U-100 Insulin) Patient History Medical History Diabetic peripheral neuropathy GERD (gastroesophageal reflux disease) Type I diabetes mellitus Surgical History No significant past surgical history Family History Other Diabetes Social History Smoking Status: Current every day smoker Tobacco Type: Cigarettes Cigarettes Per Day: 1 pack; Second Hand Exposure: No; Hx Alcohol Use: No Hx Substance Use: No Preferred Language: [place] Communication Ability: Effective Visual Impairment: Limited Hearing Ability: Normal Virtual Reality Specialist Required: No Beliefs That Will Affect Care: None marital status: Single Current Living Situation: Homeless Current Living Situation Comment: Cousin current occupational status: disabled How many Children do You have: 0 Feels Safe at Home: Yes Childhood Exposure to Second-Hand Smoke: No caffeine: Yes during the past year weight has: remained stable Dental Care, Regularly: Yes Physical Activity Frequency: Daily Seatbelt Use: always Sunscreen Use: No Do you think of yourself as: straight/heterosexual Sexual Activity: has been sexually active within the last 12 months Gender Identity: Male Assistive Devices: None Review of Systems Review of Systems: All systems reviewed & are unremarkable except as noted in HPI & below Physical Exam Constitutional: WD/WN, vitals as above cooperative and comfortable Eyes: PERRL, conjunctivae normal, anicteric sclerae ENMT: external ear and nose normal, oropharynx normal Neck: trachea midline, no thyromegaly Respiratory: normal respiratory effort, lungs clear to auscultation Cardiovascular: RRR, no murmur, no edema Rate/Rhythm: + tachycardic Vessels: no JVD Extremities: no edema Gastrointestinal (Abdomen): normal bowel sounds, soft, nontender, no hepatosplenomegaly Musculoskeletal: no cyanosis or clubbing, extremities motor strength 5/5 Skin: no rashes, warm and dry Neurologic: PERRL, EOMI, accommodation nl, no face palsy, no dysarthria Psychiatric: A+Ox3, euthymic affect Results & Data Results & Data Vital Signs (Past 12 Hours) Vital Signs Temp Pulse Pulse Resp BP BP Pulse Ox 08/02/22 01:30 134 H 21 98 08/02/22 01:15 142 H 23 98 08/02/22 01:00 136 H 21 99 08/02/22 01:00 104/70 08/02/22 00:45 141 H 22 97 08/02/22 00:30 140 H 21 97 08/02/22 00:15 138 H 20 96 08/02/22 00:07 127/85 08/02/22 00:07 142 H 20 98 08/02/22 00:00 146 H 18 08/01/22 23:45 138 H 22 98 08/01/22 23:40 138 H 21 98 08/01/22 23:40 113/67 08/01/22 23:30 144 H 19 99 08/01/22 23:30 127/80 08/01/22 23:20 137 H 20 98 08/01/22 23:20 110/70 08/01/22 23:15 135 H 18 98 08/01/22 23:10 134 H 18 109/67 98 08/01/22 23:00 135 H 18 114/67 98 08/01/22 22:50 135 H 18 97/60 L 98 08/01/22 22:45 138 H 19 97 08/01/22 22:40 139 H 18 123/67 98 08/01/22 22:30 138 H 20 121/69 98 08/01/22 22:20 139 H 18 140/80 08/01/22 22:15 144 H 21 99 08/01/22 22:10 143 H 15 111/80 99 08/01/22 22:00 133 H 18 127/76 100 08/01/22 21:50 132 H 17 142/82 H 99 08/01/22 21:45 134 H 22 99 08/01/22 21:40 137 H 18 164/101 H 99 08/01/22 21:30 128 H 16 142/81 H 100 08/01/22 21:20 129 H 16 146/87 H 100 08/01/22 21:15 126 H 13 100 08/01/22 21:10 128 H 19 138/82 100 08/01/22 21:02 130 H 23 133/78 100 08/01/22 21:00 100 08/01/22 20:57 100 08/01/22 20:40 134 H 17 168/99 H 100 08/01/22 20:30 125 H 18 137/75 99 08/01/22 20:20 130 H 19 132/82 08/01/22 20:15 132 H 19 127/80 08/01/22 20:14 126 H 19 125/78 08/01/22 20:00 128 H 21 08/01/22 19:47 130 H 08/01/22 20:17 130 H 17 127/80 96 08/01/22 19:54 97 08/01/22 19:51 128 H 21 117/76 100 08/01/22 19:48 126 H 20 08/01/22 19:18 36.7 C 143 H 18 93/64 L 99 O2 Del Method 08/02/22 01:30 08/02/22 01:15 08/02/22 01:00 08/02/22 01:00 08/02/22 00:45 08/02/22 00:30 08/02/22 00:15 08/02/22 00:07 08/02/22 00:07 08/02/22 00:00 08/01/22 23:45 08/01/22 23:40 08/01/22 23:40 08/01/22 23:30 08/01/22 23:30 08/01/22 23:20 08/01/22 23:20 08/01/22 23:15 Room Air 08/01/22 23:10 Room Air 08/01/22 23:00 Room Air 08/01/22 22:50 Room Air 08/01/22 22:45 Room Air 08/01/22 22:40 Room Air 08/01/22 22:30 Room Air 08/01/22 22:20 08/01/22 22:15 Room Air 08/01/22 22:10 Room Air 08/01/22 22:00 Room Air 08/01/22 21:50 Room Air 08/01/22 21:45 Room Air 08/01/22 21:40 Room Air 08/01/22 21:30 Room Air 08/01/22 21:20 Room Air 08/01/22 21:15 Room Air 08/01/22 21:10 Room Air 08/01/22 21:02 Room Air 08/01/22 21:00 Room Air 08/01/22 20:57 Room Air 08/01/22 20:40 Room Air 08/01/22 20:30 Room Air 08/01/22 20:20 08/01/22 20:15 08/01/22 20:14 08/01/22 20:00 08/01/22 19:47 08/01/22 20:17 Room Air 08/01/22 19:54 Room Air 08/01/22 19:51 Room Air 08/01/22 19:48 08/01/22 19:18 Room Air Coding Level of Care Code 29374 IN/OBS CONSULT LVL 4,60M Diagnoses DKA (diabetic ketoacidosis) E11.10 Diabetes mellitus complication detail: without coma Type I diabetes mellitus E10.9 GERD (gastroesophageal reflux disease) K21.9 Diabetic peripheral neuropathy E11.42 Nausea & vomiting R11.2 Vomiting type: unspecified BERNARD (acute kidney injury) N17.9 Metabolic acidosis E87.2 (1) DKA (diabetic ketoacidosis) Diabetes mellitus complication detail: without coma (5) Nausea & vomiting Vomiting type: unspecified Qualified Code(s): R11.2 - Nausea with vomiting, unspecified
[2022-08-02] MEDS: POTASSIUM CHLORIDE 40 MEQ in D5W AND 1/2NSS 1,000 ML IV SCH ×2 (02:33→08:05)
[2022-08-02 04:51] LABS: BUN Creatinine Ratio 23.5 (10-20); Est GFR (African American) 75.4 ml/min; Est GFR (Non-African American) 65.1 ml/min; Magnesium 2.2 mg/dl (1.7-2.4); Phosphorus 4.2 mg/dl (2.5-4.9); Potassium 4.2 mmol/L (3.5-5.1)
[2022-08-02] MEDS ORDERED: ICU Protocol for HYPERglycemia SCH (07:30)
--- NOTE | 2022-08-02 07:42 | XRay Report ---
XR chest 1V portable CLINICAL HISTORY: Sepsis. COMPARISON STUDY: Chest radiograph May 15, 2022. FINDINGS: Lung volumes are normal. Lungs are clear. There is no pneumothorax or pleural effusion. Car diac size is normal. Mediastinal contours are normal. There is no evidence for pulmonary edema. IMPRESSION: No acute cardiopulmonary findings. ACT 112: Negative or not required by law. Electronically signed by: Filemon Beverly M.D. 08/02/2022 7:40 AM
[2022-08-02] MEDS: INSULIN ASPART PER UNIT CHARGE SC SCH ×2 (08:06→11:32)
[2022-08-02 08:39] LABS: BUN Creatinine Ratio 22.1 (10-20); Calcium 8.5 mg/dl (8.6-10.3); Creatinine Clr Calc Pharmacy 73.6 ml/min; Est GFR (Non-African American) 74.2 ml/min; Magnesium 2.3 mg/dl (1.7-2.4); Phosphorus 2.7 mg/dl (2.5-4.9); Potassium 4.6 mmol/L (3.5-5.1)
--- NOTE | 2022-08-02 08:56 | Critical Care Progress Note ---
Date of Service August 02, 2022 Assessment & Plan (1) DKA (diabetic ketoacidosis): (2) Type I diabetes mellitus: (3) GERD (gastroesophageal reflux disease): (4) Diabetic peripheral neuropathy: (5) Nausea & vomiting: (6) BERNARD (acute kidney injury): (7) Metabolic acidosis: Plan Reason Critically Ill: 37-year-old male with type 1 diabetes presenting with DKA requiring aggressive IV fluid management as well as electrolyte correction and insulin drip management. NEURO - * CAM ICU: NEGATIVE CARDIAC/VASCULAR - * Tachycardia: * Likely in combination of the patient's DKA and hypovolemic state. * Treated with an additional 2 L crystalloid which did improve the patient's heart rate. * This has continued to improve with correction of his underlying acidosis. * Monitor on telemetry. RESPIRATORY - * No history of pulmonary disease. * Saturating well on room air. GI/NUTRITION - * Complaints of nausea. * Allow clear liquids. RENAL/LYTES - * BERNARD: * In the setting of profound hypovolemia and DKA patient. * Has continued to improve. * Continue with aggressive electrolyte correction as needed. * IVF: D5 half-normal with 40 mill equivalents of potassium at 200 mils per hour. - * No concerns at this time * Strict I&Os. ENDO - * DKA: * Patient is down significantly on his insulin requirement at this point. * Anion gap continues to close. Bicarb is correcting. * Continue with IV fluids and insulin drip until patient's gap closes. * Concern is the patient has had multiple recent admissions for the same. He does have a follow-up appointment with endocrinology soon. HEME - * Stable H&H. ID - * No concerns for infectious process at this time LINES/IV ACCESS - * PIVs x3 DVT PROPHYLAXIS - * SCDs I was asked by nursing staff to evaluate the patient as he is requesting to be discharged. I had a lengthy conversation with the patient at bedside discussing his current management and my concerns for his ongoing acuity of illness in the setting of DKA. He states that he is feeling better and would like to leave. I explained to him that at this point, he is still requiring significant medical intervention including insulin drip and IV fluids. I also explained to him that he has high risk for rebound of symptoms up to and including , disfigurement, and permanent disability. Despite our conversation, the patient reiterates that he wishes to be discharged home. I offered to help him in any way that I could keep him in the hospital, however he reports that he would rather be home. I did explain that the patient would need to fill out AGAINST MEDICAL ADVICE paperwork as I am not comfortable with formal disposition at this point as the patient requires ongoing inpatient management for his DKA. Patient completed AGAINST MEDICAL ADVICE paperwork with nursing staff present. All paperwork was signed and filed. Patient chooses to leave AGAINST MEDICAL AD VICE. I have personally spent 35 minutes of critical care time in the direct management of this patient. This is a life/limb threatening event. This includes time spent evaluating patient, direct bedside care, chart review, placing orders, interpretation of diagnostic studies, discussion with consultants, patient, and family members, as well as other required patient management activities. This time is exclusive of all separately billable procedures, and teaching time and separate from and in addition to any other critical care service time. Thank you for allowing us to participate in the care of this patient. Please refer to my attending physician's documentation for any further recommendations. Admission and Anticipated Discharge Date Admission Date: August 01, 2022 Subjective Patient was seen and evaluated at bedside this morning. He is awake, alert, and oriented. He reports that he has felt nauseous for the last few days prior to arrival. He reports no vomiting or diarrheal symptoms. Review of Systems Review of Systems: A complete 6 point review of systems was reviewed with the patient with pertinent positives and negatives as per history of present illness. All else were negative. Physical Exam Physical Exam: VITAL SIGNS - Vital signs and nursing notes were reviewed. GENERAL - 37-year-old male appearing his stated age who is in no acute distress. Communicates well with provider and answers questions appropriately. SKIN - Without rashes. HEAD - NC/AT. MOUTH/OROPHARYNX - Without perioral cyanosis. Buccal mucosa pink and dry. NECK - Neck with FROM. LUNGS - Normal vesicular breath sounds CTA B/L. No wheezes, rales, or rhonchi appreciated. CARDIAC - Tachycardic. No murmur, rubs, or gallops appreciated. ABDOMEN - Abdominal contour flat without pulsations or visible masses. BS normoactive all four quadrants. No tenderness, palpable masses, hepatos plenomegaly, or ascites noted. EXTREMITIES - No clubbing or peripheral cyanosis. No pretibial edema present. +3/5 radial and dorsalis pedis pulses palpated throughout. NEUROLOGIC - Cranial nerves II through XII grossly intact. PSYCH - A&Ox3 and cooperates fully with examiner. Pt is very pleasant and interacts well with examiner. Results & Data Results & Data Vital Signs (Past 12 Hours) Vital Signs Temp Pulse Resp BP Pulse Ox O2 Del Method 08/02/22 08:28 36.6 C 08/02/22 08:14 140 H 08/02/22 01:30 134 H 21 98 08/02/22 01:15 142 H 23 98 08/02/22 01:00 136 H 21 99 08/02/22 01:00 104/70 08/02/22 00:45 141 H 22 97 08/02/22 00:30 140 H 21 97 08/02/22 00:15 138 H 20 96 08/02/22 00:07 127/85 08/02/22 00:07 142 H 20 98 08/02/22 00:00 146 H 18 08/01/22 23:45 138 H 22 98 08/01/22 23:40 138 H 21 98 08/01/22 23:40 113/67 08/01/22 23:30 144 H 19 99 08/01/22 23:30 127/80 08/01/22 23:20 137 H 20 98 08/01/22 23:20 110/70 08/01/22 23:15 135 H 18 98 Room Air 08/01/22 23:10 134 H 18 109/67 98 Room Air 08/01/22 23:00 135 H 18 114/67 98 Room Air 08/01/22 22:50 135 H 18 97/60 L 98 Room Air 08/01/22 22:45 138 H 19 97 Room Air 08/01/22 22:40 139 H 18 123/67 98 Room Air 08/01/22 22:30 138 H 20 121/69 98 Room Air 08/01/22 22:20 139 H 18 140/80 08/01/22 22:15 144 H 21 99 Room Air 08/01/22 22:10 143 H 15 111/80 99 Room Air 08/01/22 22:00 133 H 18 127/76 100 Room Air 08/01/22 21:50 132 H 17 142/82 H 99 Room Air 08/01/22 21:45 134 H 22 99 Room Air 08/01/22 21:40 137 H 18 164/101 H 99 Room Air 08/01/22 21:30 128 H 16 142/81 H 100 Room Air 08/01/22 21:20 129 H 16 146/87 H 100 Room Air 08/01/22 21:15 126 H 13 100 Room Air 08/01/22 21:10 128 H 19 138/82 100 Room Air 08/01/22 21:02 130 H 23 133/78 100 Room Air 08/01/22 21:00 100 Room Air 08/01/22 20:57 100 Room Air Coding Level of Care Code 07790 CRITICAL CARE 1ST 30-74M Diagnoses DKA (diabetic ketoacidosis) E11.10 Diabetes mellitus complication detail: without coma Type I diabetes mellitus E10.9 GERD (gastroesophageal reflux disease) K21.9 Diabetic peripheral neuropathy E11.42 Nausea & vomiting R11.2 Vomiting type: unspecified BERNARD (acute kidney injury) N17.9 Metabolic acidosis E87.2 (1) DKA (diabetic ketoacidosis) Diabetes mellitus complication detail: without coma (5) Nausea & vomiting Vomiting type: unspecified Qualified Code(s): R11.2 - Nausea with vomiting, unspecified
[2022-08-02] MEDS ORDERED: GABAPENTIN 100 MG CAP PO SCH (09:00)
[2022-08-02] MEDS ORDERED: PLASMA-LYTE A 2,000 ML IV ONE (10:30)
--- NOTE | 2022-08-02 12:47 | Electrocardiogram Report ---
Test Reason : Blood Pressure : / mmHG Vent. Rate : 125 BPM Atrial Rate : 125 BPM P-R Int : 142 ms QRS Dur : 078 ms QT Int : 300 ms P-R-T Axes : 064 064 029 degrees QTc Int : 433 ms Sinus tachycardia Cannot rule out Inferior infarct , age undetermined Abnormal ECG When compared with ECG of 11-JUL-2022 01:09, Minimal criteria for Inferior infarct are now Present Confirmed by Kannan Taylor ([id number]) on 08/02/2022 12:47:33 PM Referred By: REFERRED SELF Confirmed By:Kannan Taylor
[2022-08-02 12:50] LABS: BUN Creatinine Ratio 18.8 (10-20); Calcium 7.8 mg/dl (8.6-10.3); Creatinine Clr Calc Pharmacy 88.9 ml/min; Est GFR (African American) 108.1 ml/min; Est GFR (Non-African American) 93.3 ml/min; Magnesium 2.2 mg/dl (1.7-2.4); Phosphorus 2.1 mg/dl (2.5-4.9); Potassium 4.5 mmol/L (3.5-5.1)
--- NOTE | 2022-08-02 13:13 | Discharge Summary ---
Date of Service August 02, 2022 Admission HPI Per Admitting Provider Laron is a 37 year old male w/ PmHx T1DM w/ neuropathy and recurrent DKA, GERD, depression who came into the ED for nausea/vomiting for 3 days. Patient groggy but able to relay some history at the bedside. Has had nausea/vomiting and feeling crappy for past 3 days. Vomit has been green to brown in consistency and no blood visualized. He has thrown up twice since being in the ED. Patient states he is compliant with insulin medications however not sure how much he takes everyday. Denies fevers, chills, cough, shortness of breath, chest pain, diarrhea, constipation. ED course significant for WBC 12.86, VBG pH 7.23, Na 130, K 5.0, Cl 85, Bicarb 13, anion gap 32, glucose of 684, lactate 2.9. He was given 3L NSS and started on insulin drip. Principal Diagnosis DKA Discharge Exam Patient resting comfortably in bed. Patient seen briefly during multidisciplinary rounds. Plan was to thoroughly interview patient later in the day, however he signed out against medical advice prior to my return. Discharge Data Allergies Allergy/AdvReac Type Severity Reaction Status Date / Time codeine Allergy Intermediate Rash Verified 08/01/22 22:26 erythromycin base Allergy Unknown HAPPENED Verified 08/01/22 22:26 A SMALL CHILD Consultations 08/01/22 21:44 ED Decision to Admit Stat 08/01/22 23:19 Consult Consulting Project Director Stat Hospital Course (1) DKA (diabetic ketoacidosis): (2) Type I diabetes mellitus: (3) GERD (gastroesophageal reflux disease): (4) Diabetic peripheral neuropathy: (5) Nausea & vomiting: (6) BERNARD (acute kidney injury): (7) Metabolic acidosis: Plan Reason Critically Ill: 37-year-old male with type 1 diabetes presenting with DKA requiring aggressive IV fluid management as well as electrolyte correction and insulin drip management. 37 year old male w/ PmHx T1DM w/ neuropathy and recurrent DKA, GERD, depression admitted for DKA. T1DM/DKA: -WBC 12.86, glucose 684, VBG pH 7.23, AG 32, Bicarb 13. -Tachycardic to 120's-140's. -Na 130, corrected sodium around 142. -Possibly due to non-compliance given history. -CXR clear, U/A w/ glucose and ketones, covid negative. No obvious source of infection. -Given 3L NSS, started on insulin drip with bolus in ED. -Started patient on 150meq in sterile water at 100ml/hr x1bag. -BMP q4h until gap closure. -DKA protocol, transition when anion gap. Pharmacy glycemic consult. Hypoglycemia protocol. -Admit to ICU due to large anion gap. Patient improved with insulin drip. Anion gap is closing however, this remains elevated. appreciate input from Critical care. Patient later decided to leave against medical advice despite Critical care team informing him of the risks and benefits of leaving. BERNARD: -Creatinine 1.75, eGFR 48. -Baseline 0.8-1. -Likely due to volume depletion. -Q4h BMP until gap closure, trend kidney function with fluid rehydration. MDD: -No medications at this time. Total Time Total Time Spent Total Time Spent (In Minutes): 31 (including sign out, chart rounding, discussion with critical care team) Discharge Plan Discharge Items Patient Disposition: Against Medical Advice Reason For Visit: DKA Activity: As commented below Non-emergency contact: Primary Care Provider Follow-up/Referrals: Carolyn Story MD [Primary Care Provider] - Pending Studies at Discharge: No Stand-Alone Forms: [employer], Smoking Cessation Skilled Items Patient informed of condition?: Yes Medications and DC Order Prescriptions: Continued albuterol sulfate 90 mcg/actuation HFA aerosol inhaler 2 puff inhalation Q6H PRN (Reason: shortness of breath or wheezing) Qty: 8.5 5RF insulin glargine [Lantus Solostar U-100 Insulin] 100 unit/mL (3 mL) insulin pen 15 unit SC AMHS Qty: 15 0RF Humalog U-100 Insulin 100 unit/mL cartridge 20 unit SUBCUT TID PRN (Reason: hyperglycemia) Qty: 15 5RF (DME) lancets [OneTouch Delica Lancets] 33 gauge misc See Rx Instructions .Route Qty: 100 0RF Rx Instructions: As directed (DME) OneTouch Verio test strips Strip See Rx Instructions .Route Qty: 100 1RF Rx Instructions: As directed (DME) insulin syringe-needle U-100 0.3 mL 31 gauge x 15/64" syringe See Rx Instructions .Route Qty: 100 0RF Rx Instructions: As directed acetaminophen [Tylenol Extra Strength] 500 mg Tablet 100 - 1,500 mg PO Q8 PRN (Reason: Pain) gabapentin 100 mg capsule 100 mg PO TID Discontinued ondansetron 4 mg tablet,disintegrating 4 mg PO UD PRN (Reason: Nausea And Vomiting) Discharge Orders: Discharge Order (Routine); Ordered 08/02/22 Ordered By: Kolton Peter Left Against Medical Advice (Routine); Ordered 08/02/22 Ordered By: Kolton Peter Admission Data Admit Date/Time: 08/01/22 23:13 Attending Provider: Rocco Solano Admit Provider: Constantino Marquez Primary Care Provider: Carolyn Story Other Providers: Kenny Aguilar Gregory Coding Level of Care Code 77235 INP/OBS DISCH >30 MIN Diagnoses DKA (diabetic ketoacidosis) E11.10 Diabetes mellitus complication detail: without coma Type I diabetes mellitus E10.9 GERD (gastroesophageal reflux disease) K21.9 Diabetic peripheral neuropathy E11.42 Nausea & vomiting R11.2 Vomiting type: unspecified BERNARD (acute kidney injury) N17.9 Metabolic acidosis E87.2
--- NOTE | 2022-08-02 13:24 | Pharmacy Report ---
Pharmacy Glycemic Short Note 2 - Date of Service August 02, 2022 - Glycemic Short BSG Results (Last 24 hours): 08/01/22 08/01/22 08/01/22 19:20 20:19 21:03 Glucose 684 H* POC Glucose 567 H* > 600 H* 08/01/22 08/01/22 08/02/22 21:45 23:26 00:57 Glucose POC Glucose 592 H* 514 H* 285 H 08/02/22 08/02/22 08/02/22 01:19 02:01 02:58 Glucose 227 H POC Glucose 164 H 207 H 08/02/22 08/02/22 08/02/22 03:57 04:24 04:55 Glucose 200 H POC Glucose 341 H* 147 H 08/02/22 08/02/22 08/02/22 05:26 06:01 06:03 Glucose POC Glucose 128 H 595 H* 300 H 08/02/22 08/02/22 08/02/22 06:05 07:09 08:04 Glucose POC Glucose 351 H* 260 H 159 H 08/02/22 08/02/22 08/02/22 08:06 09:27 10:25 Glucose 177 H POC Glucose 172 H 192 H 08/02/22 08/02/22 11:31 12:15 Glucose 176 H POC Glucose 189 H OUTPATIENT ANTIDIABETIC REGIMEN: * Lantus 15 units BID, insulin lispro 20 units TID * A1c 11.3 - 2021 ASSESSMENT: * Patient admitted with DKA, on insulin infusion running @ 1.7 units/hr * D5+1/2NS + 40 meq KCl infusing @ 200 ml/hr * On las labs, anion gap still elevated at 15, bicarbonate has increased to 19, VBG pH up to 7.34 * Plan to continue insulin infusion until anion gap closed. PLAN FOR INPATIENT GLYCEMIC CONTROL: * Patient to continue on insulin infusion until gap has closed (bicarb >15) and then will transition to basal/bolus * Patient has left AMA prior to completing note
--- NOTE | 2022-08-03 05:25 | Billing Data ---
Date of Service August 03, 2022 Coding Level of Care Code 49552 CRITICAL CARE
== END 2022-08-02 13:02 | disposition left against medical advice (07) | DRG 638 ==
LOC: ED 19:13 → 1E 23:13 → SUATTDRO 23:13 → 1E 23:47

== ENCOUNTER 2022-08-15 18:04 | Inpatient (IN) ==
[2022-08-15] MEDS ORDERED: DEXTROSE 50% 50 ML SYRINGE IV STA (18:12)
[2022-08-15] MEDS ORDERED: SODI CHLOR 2.5MEQ/ML 14.6% 77 MEQ in DEXTROSE 10% 1,000 ML IV ONE (18:13)
[2022-08-15] MEDS ORDERED: GLUCOSE 10 TAB/TUBE PO PRN (18:14)
[2022-08-15] MEDS ORDERED: DEXTROSE 50% 50 ML SYRINGE IV ONE ×3 (18:14→20:27)
[2022-08-15] MEDS ORDERED: GLUCOSE 40% GEL 15 GM TUBE PO PRN (18:14)
[2022-08-15] MEDS ORDERED: CARBOHYDRATES FOR HYPOGLYCEMIA PO PRN (18:14)
[2022-08-15] MEDS ORDERED: GLUCAGON FOR INJ 1 MG VIAL SQ PRN (18:14)
[2022-08-15] MEDS ORDERED: INSULIN REGULAR 250 UNITS in SODIUM CHLORIDE 0.9% 247.5 ML IV SCH (18:15)
[2022-08-15 18:27] LABS: HCO3 ABG 21 mmol/L (19-24); Oxygen Saturation ABG 99.3 % (90-95); PCO2 ABG 34 mmHg (35-46); PO2 ABG 93 mmHg (80-95)
[2022-08-15 18:28] LABS: Allen Test Pos (Pos)
--- NOTE | 2022-08-15 18:33 | Emergency Department Note ---
Impression & Plan Overdose, Depression with suicidal ideation ED Provider Note INFORMANT: Patient and EMS ED PROVIDER(S): José Miguel Umaña DO CHIEF COMPLAINT: Insulin overdose, suicidal PLAN: Disposition: Admission Outpatient prescription management: none Discussion with: I spoke with poison control. They recommend checking the glucose every 1-2 hours and observation for at least 24 hours after the glucose infusion is discontinued. They recommend p.o. carbohydrates. I spoke with the hospitalist, who will see the patient for admission/observation and further evaluation and consultation. MEDICAL DECISION MAKING: This is a 57-year-old male who presents to the ED with a chief complaint of an intentional insulin overdose. The patient states that he did this for multiple reasons including a recent break-up with his girlfriend. He took the Novolin R around 5 PM. He is inconsistent with how much he took. He states initially 200 to 300 units but then stated he took the entire vial plus some from another vial which the vial contains 1000 units. The patient had a prehospital blood sugar in the 60s. He was 56 here. The patient did receive 50 g of oral glucose prehospital. The patient was a little lethargic on my exam but answers questions appropriately. He seems to be not completely forthcoming with regards to his answers. His vital signs reveal heart rate of 130. Blood pressure 105/61. Saturations 100% on room air. Afebrile. The patient has a smell of ketones on his breath. Lungs are clear. His heart rate is elevated. Abdomen soft nontender. No other evidence of trauma. Twelve-lead EKG shows a sinus tach at a rate of 124. White blood cell count was 12.3. Lactic acid is 3.2. Negative salicylate or Tylenol or alcohol. Chemistry panel otherwise u nremarkable. COVID test was negative. ABG shows a normal pH, normal PCO2 and normal oxygen. EKG showed a sinus tach. The patient had a blood sugar of 48. He was given an amp of D50. Blood sugar increased to 208 and then drop to 117. He was started on D10 at 200/h. I spoke with the hospitalist who saw the patient in the ED for further evaluation. Triage Nursing notes reviewed. Vital Signs: reviewed Prior /Outside records reviewed: Prior admission records reviewed. Differential diagnosis: Differential includes overdose on Tylenol/aspirin/ethanol, ethylene glycol, methanol, prescribed medications, not prescribe medications/street drugs, metabolic process, traumatic process. Diagnostics, as interpreted by me: 12 lead ECG: Sinus tach rate of 124. No ST elevation. No PVCs. Normal QTc. Cardiac Monitoring ordered: Sinus rhythm in the 120 range. Medical decision rules: [none] Imaging studies: Chest x-ray: No acute disease. No pneumonia Procedures: ABG analysis: Normal pH, normal PCO2, normal oxygen. No metabolic or respiratory derangement. Critical care: I have personally spent 30 minutes of critical care time in the direct management of this patient. This includes bedside care, interpretation of diagnostic studies, and testing, discussion with consultants, patient, and family members, and other required patient management activities. This 30 minutes is in excess of all separately billable procedures. HPI: See MDM above. PAST MEDICAL HISTORY: See Below PAST SURGICAL HISTORY: See Below SOCIAL HISTORY: See Below HOME MEDICATIONS:See Below ALLERGIES: See Below VITALS: See Below PHYSICAL EXAMINATION: See MDM for positive findings otherwise unremarkable. CONSTITUTIONAL/VITAL SIGNS: Reviewed GENERAL:done as appropriate INTEGUMENTARY: done as appropriate HEAD: done as appropriate EYES: done as appropriate RESPIRATORY: done as appropriate CARDIOVASCULAR:done as appropriate GI/ABDOMEN:done as appropriate EXTREMITIES: done as appropriate NEUROLOGICAL: done as appropriate PSYCHIATRIC:done as appropriate MUSCULOSKELETAL:done as appropriate TRIAGE NURSING DOCUMENTATION REVIEWED. 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 Beliefs That Will Affect Care: None marital status: Single Current Living Situation: Homeless Current Living Situation Comment: Cousin current occupational status: disabled How many Children do You have: 0 Feels Safe at Home: Yes Childhood Exposure to Second-Hand Smoke: No Diet: diabetic and regular caffeine: Yes during the past year weight has: remained stable Dental Care, Regularly: Yes Physical Activity Frequency: Daily Seatbelt Use: always Sunscreen Use: No Do you think of yourself as: straight/heterosexual Sexual Activity: has been sexually active within the last 12 months Gender Identity: Male Assistive Devices: None Allergies Allergies Allergy/AdvReac Type Severity Reaction Status Date / Time codeine Allergy Intermediate Rash Verified 08/15/22 18:59 erythromycin base Allergy Unknown HAPPENED Verified 08/15/22 18:59 A SMALL CHILD Home Meds Home Medications Medication Instructions Recorded Confirmed acetaminophen 500 mg tablet 100 - 1,500 mg PO Q8 PRN Pain 05/15/22 08/15/22 (Tylenol Extra Strength) gabapentin 100 mg capsule 100 mg PO TID 07/11/22 08/15/22 Previous Rx's Medication Instructions Recorded blood sugar diagnostic (FTBproTouch #100 ea 07/31/21 Verio test strips) insulin syringe-needle U-100 0.3 #100 ea 07/31/21 mL 31 gauge x 15/64" lancets 33 gauge (OneTouch Delica #100 ea 07/31/21 Lancets) albuterol sulfate 90 mcg/actuation 2 puff inhalation Q6H PRN 06/07/22 aerosol inhaler shortness of breath or wheezing #8.5 grams insulin glargine 100 unit/mL (3 15 unit (0.15 mL) SC AMHS #15 mL 07/04/22 mL) subcutaneous pen (Lantus Solostar U-100 Insulin) insulin lispro 100 unit/mL 20 unit (0.2 mL) subcut TID PRN 07/26/22 subcutaneous cartridge (Humalog hyperglycemia #15 mL U-100 Insulin) Results & Data (ED) Vital Signs Vital Signs - 24 hr 08/15/22 18:08 08/15/22 18:11 08/15/22 19:01 Pulse Rate 130 H Pulse Rate [Bilateral Apical] 123 H Respiratory Rate 20 Respiratory Effort / Characteristics Non-Labored Respiratory Depth Normal Blood Pressure 105/61 Blood Pressure [Right Arm] 116/78 Blood Pressure Mean 75 Blood Pressure Mean [Right Arm] 90 Blood Pressure Position Lying Pulse Oximetry 98 Oxygen Delivery Method Room Air Sepsis Recent Fever Within 48 Hours No Sepsis New/Unexplained Change in Mental Status No Sepsis Action Taken by Nursing No Action Required 08/15/22 19:16 08/15/22 19:43 08/15/22 19:45 Pulse Rate Pulse Rate [Bilateral Apical] 123 H 121 H 121 H Respiratory Rate 20 20 18 Respiratory Effort / Characteristics Non-Labored Non-Labored Non-Labored Respiratory Depth Normal Normal Normal Blood Pressure Blood Pressure [Right Arm] 109/72 112/71 99/59 L Blood Pressure Mean Blood Pressure Mean [Right Arm] 84 84 72 Blood Pressure Position Pulse Oximetry 99 97 98 Oxygen Delivery Method Room Air Room Air Room Air Sepsis Recent Fever Within 48 Hours Sepsis New/Unexplained Change in Mental Status Sepsis Action Taken by Nursing Laboratory Data 08/15/22 18:10 08/15/22 18:10 Lab Results 08/15/22 08/15/22 08/15/22 Range/Units 18:10 18:10 18:21 WBC 12.37 H (4.8-10.8) K/ul RBC 3.91 L (4.70-6.10) M/uL Hgb 13.3 L (14.0-18.0) g/dl Hct 38.2 L (42.0-52.0) % MCV 97.7 (80.0-100.0) fL MCH 34.0 (25.0-34.0) pg MCHC 34.8 (32.0-36.0) g/dL RDW Std Deviation 47.6 H (36.4-46.3) fL RDW Coeff of Margarita 13.4 (11.5-14.5) % Plt Count 401 H (130-400) K/uL MPV 8.3 L (9.4-12.4) fL Immature Gran % (Auto) 1.1 % Neut % (Auto) 74.1 % Lymph % (Auto) 21.7 % [place] % (Auto) 2.4 % Eos % (Auto) 0.1 % Baso % (Auto) 0.6 % Neut # (Auto) 9.18 H (1.40-6.50) K/uL Lymph # (Auto) 2.68 (1.2-3.4) K/uL Kitt[place] # (Auto) 0.30 (0.11-0.59) K/uL Eos # (Auto) 0.01 (0-0.50) K/uL Baso # (Auto) 0.07 (0-0.2) K/uL Immature Gran # (Auto) 0.13 (0.01-0.20) K/uL ABG pH 7.40 (7.35-7.45) ABG pCO2 34 L (35-46) mmHg ABG pO2 93 (80-95) mmHg ABG HCO3 21 (19-24) mmol/L ABG O2 Saturation 99.3 H (90-95) % ABG Base Excess -3.0 (-9-1.8) mEq/L Demond Test Pos (Pos) Oxygen Given ROOM AIR Sodium 138 (136-145) mmol/L Potassium 3.3 L (3.5-5.1) mmol/L Chloride 102 (98-107) mmol/L Carbon Dioxide 22 (21-32) mmol/L Anion Gap 14 H (3-11) BUN 25 H (6-23) mg/dl Creatinine 1.48 H (0.6-1.4) mg/dl Est Cr Clr Drug Dosing 56.5 ml/min Est GFR ( Amer) 68.1 ml/min Est GFR (Non-Af Amer) 58.8 ml/min BUN/Creatinine Ratio 16.9 (10-20) Glucose 48 L* (70-99(Fasting)) mg/dl POC Glucose (70-99) mg/dl Lactate (0.4-2.0) mmol/L Calcium 8.7 (8.6-10.3) mg/dl Phosphorus 1.6 L (2.5-4.9) mg/dl Magnesium 2.2 (1.7-2.4) mg/dl Total Bilirubin 0.3 (0.2-1.0) mg/dl AST 29 (13-39) U/L ALT 31 (7-52) U/L Alkaline Phosphatase 131 H (34-104) U/L Total Protein 6.3 (6.0-8.3) gm/dl Albumin 3.6 (3.4-5.0) gm/dl Globulin 2.7 (2.5-4.0) gm/dl Albumin/Globulin Ratio 1.3 (0.9-2) TSH (0.300-4.500) uIu/ml Salicylates (3.0-30) mg/dl Acetaminophen (10-30) ug/ml Ethyl Alcohol mg/dL (<10.0) mg/dl SARS-CoV-2, RNA, NAAT (NEGATIVE) 08/15/22 08/15/22 08/15/22 Range/Units 18:24 18:25 18:25 WBC (4.8-10.8) K/ul RBC (4.70-6.10) M/uL Hgb (14.0-18.0) g/dl Hct (42.0-52.0) % MCV (80.0-100.0) fL MCH (25.0-34.0) pg MCHC (32.0-36.0) g/dL RDW Std Deviation (36.4-46.3) fL RDW Coeff of Margarita (11.5-14.5) % Plt Count (130-400) K/uL MPV (9.4-12.4) fL Immature Gran % (Auto) % Neut % (Auto) % Lymph % (Auto) % Kitt[place] % (Auto) % Eos % (Auto) % Baso % (Auto) % Neut # (Auto) (1.40-6.50) K/uL Lymph # (Auto) (1.2-3.4) K/uL Kittson # (Auto) (0.11-0.59) K/uL Eos # (Auto) (0-0.50) K/uL Baso # (Auto) (0-0.2) K/uL Immature Gran # (Auto) (0.01-0.20) K/uL ABG pH (7.35-7.45) ABG pCO2 (35-46) mmHg ABG pO2 (80-95) mmHg ABG HCO3 (19-24) mmol/L ABG O2 Saturation (90-95) % ABG Base Excess (-9-1.8) mEq/L Demond Test (Pos) Oxygen Given Sodium (136-145) mmol/L Potassium (3.5-5.1) mmol/L Chloride (98-107) mmol/L Carbon Dioxide (21-32) mmol/L Anion Gap (3-11) BUN (6-23) mg/dl Creatinine (0.6-1.4) mg/dl Est Cr Clr Drug Dosing ml/min Est GFR ( Amer) ml/min Est GFR (Non-Af Amer) ml/min BUN/Creatinine Ratio (10-20) Glucose (70-99(Fasting)) mg/dl POC Glucose (70-99) mg/dl Lactate (0.4-2.0) mmol/L Calcium (8.6-10.3) mg/dl Phosphorus (2.5-4.9) mg/dl Magnesium (1.7-2.4) mg/dl Total Bilirubin (0.2-1.0) mg/dl AST (13-39) U/L ALT (7-52) U/L Alkaline Phosphatase (34-104) U/L Total Protein (6.0-8.3) gm/dl Albumin (3.4-5.0) gm/dl Globulin (2.5-4.0) gm/dl Albumin/Globulin Ratio (0.9-2) TSH 0.540 (0.300-4.500) uIu/ml Salicylates < 3.0 L (3.0-30) mg/dl Acetaminophen < 3 L (10-30) ug/ml Ethyl Alcohol mg/dL (<10.0) mg/dl SARS-CoV-2, RNA, NAAT NEGATIVE (NEGATIVE) 08/15/22 08/15/22 08/15/22 Range/Units 18:25 18:33 18:37 WBC (4.8-10.8) K/ul RBC (4.70-6.10) M/uL Hgb (14.0-18.0) g/dl Hct (42.0-52.0) % MCV (80.0-100.0) fL MCH (25.0-34.0) pg MCHC (32.0-36.0) g/dL RDW Std Deviation (36.4-46.3) fL RDW Coeff of Margarita (11.5-14.5) % Plt Count (130-400) K/uL MPV (9.4-12.4) fL Immature Gran % (Auto) % Neut % (Auto) % Lymph % (Auto) % Kittson % (Auto) % Eos % (Auto) % Baso % (Auto) % Neut # (Auto) (1.40-6.50) K/uL Lymph # (Auto) (1.2-3.4) K/uL Kitt[place] # (Auto) (0.11-0.59) K/uL Eos # (Auto) (0-0.50) K/uL Baso # (Auto) (0-0.2) K/uL Immature Gran # (Auto) (0.01-0.20) K/uL ABG pH (7.35-7.45) ABG pCO2 (35-46) mmHg ABG pO2 (80-95) mmHg ABG HCO3 (19-24) mmol/L ABG O2 Saturation (90-95) % ABG Base Excess (-9-1.8) mEq/L Demond Test (Pos) Oxygen Given Sodium (136-145) mmol/L Potassium (3.5-5.1) mmol/L Chloride (98-107) mmol/L Carbon Dioxide (21-32) mmol/L Anion Gap (3-11) BUN (6-23) mg/dl Creatinine (0.6-1.4) mg/dl Est Cr Clr Drug Dosing ml/min Est GFR ( Amer) ml/min Est GFR (Non-Af Amer) ml/min BUN/Creatinine Ratio (10-20) Glucose (70-99(Fasting)) mg/dl POC Glucose 209 H (70-99) mg/dl Lactate 3.2 H* (0.4-2.0) mmol/L Calcium (8.6-10.3) mg/dl Phosphorus (2.5-4.9) mg/dl Magnesium (1.7-2.4) mg/dl Total Bilirubin (0.2-1.0) mg/dl AST (13-39) U/L ALT (7-52) U/L Alkaline Phosphatase (34-104) U/L Total Protein (6.0-8.3) gm/dl Albumin (3.4-5.0) gm/dl Globulin (2.5-4.0) gm/dl Albumin/Globulin Ratio (0.9-2) TSH (0.300-4.500) uIu/ml Salicylates (3.0-30) mg/dl Acetaminophen (10-30) ug/ml Ethyl Alcohol mg/dL < 10.0 (<10.0) mg/dl SARS-CoV-2, RNA, NAAT (NEGATIVE) 05/08/23 05/08/23 Range/Units 18:39 19:20 WBC (4.8-10.8) K/ul RBC (4.70-6.10) M/uL Hgb (14.0-18.0) g/dl Hct (42.0-52.0) % MCV (80.0-100.0) fL MCH (25.0-34.0) pg MCHC (32.0-36.0) g/dL RDW Std Deviation (36.4-46.3) fL RDW Coeff of Margarita (11.5-14.5) % Plt Count (130-400) K/uL MPV (9.4-12.4) fL Immature Gran % (Auto) % Neut % (Auto) % Lymph % (Auto) % Kitt[place] % (Auto) % Eos % (Auto) % Baso % (Auto) % Neut # (Auto) (1.40-6.50) K/uL Lymph # (Auto) (1.2-3.4) K/uL Kitt[place] # (Auto) (0.11-0.59) K/uL Eos # (Auto) (0-0.50) K/uL Baso # (Auto) (0-0.2) K/uL Immature Gran # (Auto) (0.01-0.20) K/uL ABG pH (7.35-7.45) ABG pCO2 (35-46) mmHg ABG pO2 (80-95) mmHg ABG HCO3 (19-24) mmol/L ABG O2 Saturation (90-95) % ABG Base Excess (-9-1.8) mEq/L Demond Test (Pos) Oxygen Given Sodium (136-145) mmol/L Potassium (3.5-5.1) mmol/L Chloride (98-107) mmol/L Carbon Dioxide (21-32) mmol/L Anion Gap (3-11) BUN (6-23) mg/dl Creatinine (0.6-1.4) mg/dl Est Cr Clr Drug Dosing ml/min Est GFR ( Amer) ml/min Est GFR (Non-Af Amer) ml/min BUN/Creatinine Ratio (10-20) Glucose (70-99(Fasting)) mg/dl POC Glucose 383 H* 117 H (70-99) mg/dl Lactate (0.4-2.0) mmol/L Calcium (8.6-10.3) mg/dl Phosphorus (2.5-4.9) mg/dl Magnesium (1.7-2.4) mg/dl Total Bilirubin (0.2-1.0) mg/dl AST (13-39) U/L ALT (7-52) U/L Alkaline Phosphatase (34-104) U/L Total Protein (6.0-8.3) gm/dl Albumin (3.4-5.0) gm/dl Globulin (2.5-4.0) gm/dl Albumin/Globulin Ratio (0.9-2) TSH (0.300-4.500) uIu/ml Salicylates (3.0-30) mg/dl Acetaminophen (10-30) ug/ml Ethyl Alcohol mg/dL (<10.0) mg/dl SARS-CoV-2, RNA, NAAT (NEGATIVE) Administered Medications Sodium Chloride 77 meq/ (Dextrose) 1,030.8 mls @ 200 mls/hr IV .[id number] ONE Stop: 08/15/22 23:22 Last Admin: 08/15/22 19:39 Dose: 200 mls/hr Documented By: HWG Discontinued Medications Dextrose (Dextrose 50% 50 Ml Syringe) 50 ml IV NOW STA Stop: 08/15/22 18:13 Last Admin: 08/15/22 18:20 Dose: 50 ml Documented By: OL Dextrose (Dextrose 50% 50 Ml Syringe) Confirm Administered Dose 50 ml IV .STK- MED ONE Stop: 08/15/22 18:15 Last Admin: 08/15/22 18:26 Dose: Not Given Documented By: OL Imaging Data Radiologist's Impression: Chest X-Ray 08/15/22 18:21 SINGLE VIEW CHEST CLINICAL HISTORY: Overdose FINDINGS: An AP, portable, upright chest radiograph is compared to study dated 08/01/2022. The cardiomediastinal silhouette is unremarkable. The lungs and pleur al spaces are clear. No pneumothorax is seen. The bony thorax is grossly intact. There is partial bony fusion of the right first and second ribs. IMPRESSION: No active disease in the chest. ACT 112: Negative or not required by law. Electronically signed by: Lex Ivan M.D. 08/15/2022 7:01 PM Discharge Plan Visit Data Chief Complaint: Overdose (Intentional) Stated Complaint: Overdose ED Provider: José Miguel Umaña Discharge Problem: Overdose, Depression with suicidal ideation Patient Disposition: Being Evaluated by Hospitalist Forms Stand Alone Forms: My [facility], Suicide Prevention Resources Prescriptions Prescriptions: No Action albuterol sulfate 90 mcg/actuation HFA aerosol inhaler 2 puff inhalation Q6H PRN (Reason: shortness of breath or wheezing) Qty: 8.5 5RF insulin glargine [Lantus Solostar U-100 Insulin] 100 unit/mL (3 mL) insulin pen 15 unit SC AMHS Qty: 15 0RF Humalog U-100 Insulin 100 unit/mL cartridge 20 unit SUBCUT TID PRN (Reason: hyperglycemia) Qty: 15 5RF (DME) lancets [OneTouch Delica Lancets] 33 gauge misc See Rx Instructions .Route Qty: 100 0RF Rx Instructions: As directed (DME) OneTouch Verio test strips Strip See Rx Instructions .Route Qty: 100 1RF Rx Instructions: As directed (DME) insulin syringe-needle U-100 0.3 mL 31 gauge x 15/64" syringe See Rx Instructions .Route Qty: 100 0RF Rx Instructions: As directed acetaminophen [Tylenol Extra Strength] 500 mg Tablet 100 - 1,500 mg PO Q8 PRN (Reason: Pain) gabapentin 100 mg capsule 100 mg PO TID Referrals Referrals: Carolyn Story MD [Primary Care Provider] -
[2022-08-15 18:44] LABS: Basophils # (auto) 0.07 K/uL (0-0.2); Basophils % (auto) 0.6 %; Eosinophils # (auto) 0.01 K/uL (0-0.50); Eosinophils % (auto) 0.1 %; Hematocrit (blood only) 38.2 % (42.0-52.0); Hemoglobin 13.3 g/dl (14.0-18.0); Immature Granulocytes # (auto) 0.13 K/uL (0.01-0.20); Immature Granulocytes % (auto) 1.1 %; Lymphocytes # (auto) 2.68 K/uL (1.2-3.4); Lymphocytes % (auto) 21.7 %; Mean Corpuscular Hgb Conc 34.8 g/dL (32.0-36.0); Mean Corpuscular Volume 97.7 fL (80.0-100.0); Mean Platelet Volume 8.3 fL (9.4-12.4); Monocytes % (auto) 2.4 %; Neutrophils # (auto) 9.18 K/uL (1.40-6.50); Neutrophils % (auto) 74.1 %; Platelet Count 401 K/uL (130-400); RDW Coefficient of Variation 13.4 % (11.5-14.5); RDW Standard Deviation 47.6 fL (36.4-46.3); Red Blood Count 3.91 M/uL (4.70-6.10); White Blood Count 12.37 K/ul (4.8-10.8)
[2022-08-15 19:03] LABS: Acetaminophen < 3 ug/ml (10-30); Salicylate < 3.0 mg/dl (3.0-30)
--- NOTE | 2022-08-15 19:03 | XRay Report ---
SINGLE VIEW CHEST CLINICAL HISTORY: Overdose FINDINGS: An AP, portable, upright chest radiograph is compared to study dated 08/01/2022. The cardiom ediastinal silhouette is unremarkable. The lungs and pleural spaces are clear. No pneumothorax is see n. The bony thorax is grossly intact. There is partial bony fusion of the right first and second ribs . IMPRESSION: No active disease in the chest. ACT 112: Negative or not required by law. Electronically signed by: Lex Ivan M.D. 08/15/2022 7:01 PM
[2022-08-15 19:04] LABS: Albumin Globulin Ratio 1.3 (0.9-2); Albumin Level 3.6 gm/dl (3.4-5.0); BUN Creatinine Ratio 16.9 (10-20); Bilirubin,Total 0.3 mg/dl (0.2-1.0); Calcium 8.7 mg/dl (8.6-10.3); Creatinine Clr Calc Pharmacy 56.5 ml/min; Est GFR (African American) 68.1 ml/min; Est GFR (Non-African American) 58.8 ml/min; Globulin 2.7 gm/dl (2.5-4.0); Magnesium 2.2 mg/dl (1.7-2.4); Phosphorus 1.6 mg/dl (2.5-4.9); Potassium 3.3 mmol/L (3.5-5.1); Total Protein 6.3 gm/dl (6.0-8.3)
[2022-08-15] MEDS ORDERED: POTASSIUM PHOS 3 MMOL/1 ML INFUSION IV STA (20:28)
[2022-08-15] MEDS ORDERED: POTASSIUM CHLORIDE / WTR 10 MEQ/100 ML PLCT IV SCH (20:30)
[2022-08-15] MEDS ORDERED: DEXTROSE 50% 50 ML SYRINGE IV PRN (20:33)
[2022-08-15] MEDS ORDERED: POTASSIUM PHOSPHATE 30 MMOL in SODIUM CHLORIDE 0.9% 500 ML IV ONE (21:00)
--- NOTE | 2022-08-15 21:30 | History & Physical Report ---
Date of Service August 15, 2022 Assessment & Plan (1) Depression with suicidal ideation: (2) Intentional overdose of insulin: (3) Type I diabetes mellitus: (4) GERD (gastroesophageal reflux disease): (5) Diabetic peripheral neuropathy: (6) BERNARD (acute kidney injury): (7) B12 deficiency: (8) MDD (major depressive disorder), recurrent episode, moderate: (9) Intermittent explosive disorder in adult: (10) Hypoglycemia: (11) Hypokalemia: (12) Hypophosphatemia: Plan Hypoglycemia/intentional overdose of insulin- Admit to monitored bed Glucose was 48 upon admission Has received dextrose 50x2 in the ED Continue dextrose 10% in water at 200 mils per hour Continue every hour Accu-Cheks Dextrose 50 every hour if blood sugars less than 70 Pharmacy consult We will hold all outpatient insulin Major depressive disorder/intermittent explosive disorder in adult/suicidal ideation with suicide attempt by insulin overdose- Consult psychiatry Hypokalemia/hypophosphatemia- Potassium 3.3 and phosphorus 1.6 K-Phos 30 mmol IV replacement Recheck laboratories in a.m. History of Present Illness Chief Complaint: The patient presents to the emergency department via EMS after he called them and reported that he intentionally had taken an insulin overdose of Novolin R around 5 PM this evening Primary Care Provider: Carolyn Story MD The patient is a 37-year-old male with a past medical history including DKA, diabetes mellitus type 1, GERD, diabetic peripheral neuropathy, acute URI, bilateral lower extremity edema, BERNARD, B12 deficiency, tobacco use, intermittent explosive disorder in adult and MDD recurrent, moderate. The patient was inconsistent about the amount of additional insulin that he took. His glucose was 48 on admission labs. He did receive dextrose 50 few times, with blood sugar increasing and then rapidly dropping back down into the double digits again. The patient was then started on D10 at 200 mils per hour, and referred for evaluation for admission Significant laboratories: Potassium 3.3, glucose 48, creatinine 1.48, WBC 12.37, lactic acid 3.2 and phosphorus 1.6. Patient is COVID-19 negative Allergies Allergy/AdvReac Type Severity Reaction Status Date / Time codeine Allergy Intermediate Rash Verified 08/15/22 18:59 erythromycin base Allergy Unknown HAPPENED Verified 08/15/22 18:59 A SMALL CHILD Home Medications Medication Instructions Recorded Confirmed Type blood sugar diagnostic (OneTouch #100 ea 07/31/21 08/01/22 Rx Verio test strips) insulin syringe-needle U-100 0.3 #100 ea 07/31/21 08/04/22 Rx mL 31 gauge x 15/64" lancets 33 gauge (OneTouch Delica #100 ea 07/31/21 08/01/22 Rx Lancets) acetaminophen 500 mg tablet 100 - 1,500 mg PO Q8 PRN Pain 05/15/22 08/15/22 History (Tylenol Extra Strength) albuterol sulfate 90 mcg/actuation 2 puff inhalation Q6H PRN 06/07/22 08/15/22 Rx aerosol inhaler shortness of breath or wheezing #8.5 grams insulin glargine 100 unit/mL (3 15 unit (0.15 mL) SC AMHS #15 mL 07/04/22 08/15/22 Rx mL) subcutaneous pen (Lantus Solostar U-100 Insulin) gabapentin 100 mg capsule 100 mg PO TID 07/11/22 08/15/22 History insulin lispro 100 unit/mL 20 unit (0.2 mL) subcut TID PRN 07/26/22 08/15/22 Rx subcutaneous cartridge (Humalog hyperglycemia #15 mL U-100 Insulin) Past Med/Surg History Medical History Diabetic peripheral neuropathy GERD (gastroesophageal reflux disease) Type I diabetes mellitus Surgical History No significant past surgical history Family History Other Diabetes Social History Smoking Status: Current every day smoker Tobacco Type: Cigarettes Cigarettes Per Day: 1 pack; Second Hand Exposure: No; Do You Dip or Chew Tobacco: No; Hx Alcohol Use: No Hx Substance Use: No Preferred Language: Upper Sorbian Communication Ability: Effective Visual Impairment: Limited Hearing Ability: Normal Consulting Practice Director Required: No Beliefs That Will Affect Care: None marital status: Single Current Living Situation: Homeless Current Living Situation Comment: Cousin current occupational status: disabled How many Children do You have: 0 Feels Safe at Home: Yes Childhood Exposure to Second-Hand Smoke: No Diet: diabetic and regular caffeine: Yes during the past year weight has: remained stable Dental Care, Regularly: Yes Physical Activity Frequency: Daily Seatbelt Use: always Sunscreen Use: No Do you think of yourself as: straight/heterosexual Sexual Activity: has been sexually active within the last 12 months Gender Identity: Male Assistive Devices: None Review of Systems Review of Systems: The patient denies chest pain, palpitations, shortness of breath, dyspnea on exertion, cough, lower extremity swelling, sore throat, fevers, chills, sweats, nausea, vomiting, diarrhea , constipation, abdominal pain, pelvic pain, blood in urine or stool, dysuria, urinary frequency or urgency, lightheadedness, dizziness, headache, memory loss, loss of consciousness, rash, abnormal bruising or bleeding, imbalance, focal or generalized weakness, numbness or tingling in arms or legs, generalized arthralgias or myalgias, back or neck pain, or night sweats. The review of systems is otherwise negative other than for that already noted above, and at least 10 systems have been reviewed. Physical Exam Physical Exam: The patient is sedated, but rouses spontaneously, well developed and well nourished, normocephalic and atraumatic, lying in bed and in no acute distress. HEENT--PERRL, EOMI, mucous membranes and oropharynx dry. Neck--supple. No JVD. No bruits. Thyroid normal, trachea midline, no adenopathy. Heart--normal S1 and S2. No murmurs, rubs or gallops. Lungs--clear bilaterally, no respiratory distress, no accessory muscle use. Abdomen--normal bowel sounds and soft. Nontender. Nondistended, no hernias or masses, no organomegaly. Extremities--no cyanosis or clubbing. No edema. There are good distal pulses b/l. Dermatologic--normal skin turgor, normal color, no abnormal lymph nodes, no rash. Neurologic--cranial nerves II through XII grossly intact. Rheumatologic--normal range of motion. Psychiatric--flat affect. Results & Data Results & Data Vital Signs (Past 12 Hours) Vital Signs Pulse Pulse Resp BP BP Pulse Ox O2 Del Method 08/15/22 20:17 118 H 20 99/64 L 97 Room Air 05/08/23 19:45 121 H 18 99/59 L 98 Room Air 08/15/22 19:43 121 H 20 112/71 97 Room Air 08/15/22 19:16 123 H 20 109/72 99 Room Air 08/15/22 19:01 123 H 20 116/78 98 Room Air 08/15/22 18:11 130 H 08/15/22 18:08 105/61 Laboratory Results Laboratory Results WBC 12.37 K/ul (4.8-10.8) H 08/15/22 18:10 RBC 3.91 M/uL (4.70-6.10) L 08/15/22 18:10 Hgb 13.3 g/dl (14.0-18.0) L 08/15/22 18:10 Hct 38.2 % (42.0-52.0) L 08/15/22 18:10 MCV 97.7 fL (80.0-100.0) 08/15/22 18:10 MCH 34.0 pg (25.0-34.0) 08/15/22 18:10 MCHC 34.8 g/dL (32.0-36.0) 08/15/22 18:10 RDW Std Deviation 47.6 fL (36.4-46.3) H 08/15/22 18:10 RDW Coeff of Margarita 13.4 % (11.5-14.5) 08/15/22 18:10 Plt Count 401 K/uL (130-400) H 08/15/22 18:10 MPV 8.3 fL (9.4-12.4) L 08/15/22 18:10 Immature Gran % (Auto) 1.1 % 08/15/22 18:10 Neut % (Auto) 74.1 % 08/15/22 18:10 Lymph % (Auto) 21.7 % 08/15/22 18:10 Cedar % (Auto) 2.4 % 08/15/22 18:10 Eos % (Auto) 0.1 % 08/15/22 18:10 Baso % (Auto) 0.6 % 08/15/22 18:10 Neut # (Auto) 9.18 K/uL (1.40-6.50) H 08/15/22 18:10 Lymph # (Auto) 2.68 K/uL (1.2-3.4) 08/15/22 18:10 Cedar # (Auto) 0.30 K/uL (0.11-0.59) 08/15/22 18:10 Eos # (Auto) 0.01 K/uL (0-0.50) 08/15/22 18:10 Baso # (Auto) 0.07 K/uL (0-0.2) 08/15/22 18:10 Immature Gran # (Auto) 0.13 K/uL (0.01-0.20) 08/15/22 18:10 ABG pH 7.40 (7.35-7.45) 08/15/22 18:21 ABG pCO2 34 mmHg (35-46) L 08/15/22 18:21 ABG pO2 93 mmHg (80-95) 08/15/22 18:21 ABG HCO3 21 mmol/L (19-24) 08/15/22 18:21 ABG O2 Saturation 99.3 % (90-95) H 08/15/22 18:21 ABG Base Excess -3.0 mEq/L (-9-1.8) 08/15/22 18:21 Demond Test Pos (Pos) 08/15/22 18:21 Oxygen Given ROOM AIR 08/15/22 18:21 Sodium 138 mmol/L (136-145) 08/15/22 18:10 Potassium 3.3 mmol/L (3.5-5.1) L 08/15/22 18:10 Chloride 102 mmol/L (98-107) 08/15/22 18:10 Carbon Dioxide 22 mmol/L (21-32) 08/15/22 18:10 Anion Gap 14 (3-11) H 08/15/22 18:10 BUN 25 mg/dl (6-23) H 08/15/22 18:10 Creatinine 1.48 mg/dl (0.6-1.4) H 08/15/22 18:10 Est Cr Clr Drug Dosing 56.5 ml/min 08/15/22 18:10 Est GFR ( Amer) 68.1 ml/min 08/15/22 18:10 Est GFR (Non-Af Amer) 58.8 ml/min 08/15/22 18:10 BUN/Creatinine Ratio 16.9 (10-20) 08/15/22 18:10 Glucose 48 mg/dl (70-99(Fasting)) L* 08/15/22 18:10 POC Glucose 467 mg/dl (70-99) H* 08/15/22 20:53 Lactate 2.1 mmol/L (0.4-2.0) H* 08/15/22 20:17 Calcium 8.7 mg/dl (8.6-10.3) 08/15/22 18:10 Phosphorus 1.6 mg/dl (2.5-4.9) L 08/15/22 18:10 Magnesium 2.2 mg/dl (1.7-2.4) 08/15/22 18:10 Total Bilirubin 0.3 mg/dl (0.2-1.0) 08/15/22 18:10 AST 29 U/L (13-39) 08/15/22 18:10 ALT 31 U/L (7-52) 08/15/22 18:10 Alkaline Phosphatase 131 U/L (34-104) H 08/15/22 18:10 Total Protein 6.3 gm/dl (6.0-8.3) 08/15/22 18:10 Albumin 3.6 gm/dl (3.4-5.0) 08/15/22 18:10 Globulin 2.7 gm/dl (2.5-4.0) 08/15/22 18:10 Albumin/Globulin Ratio 1.3 (0.9-2) 08/15/22 18:10 TSH 0.540 uIu/ml (0.300-4.500) 08/15/22 18:25 Salicylates < 3.0 mg/dl (3.0-30) L 08/15/22 18:25 Acetaminophen < 3 ug/ml (10-30) L 08/15/22 18:25 Ethyl Alcohol mg/dL < 10.0 mg/dl (<10.0) 08/15/22 18:25 SARS-CoV-2, RNA, NAAT NEGATIVE (NEGATIVE) 08/15/22 18:24 Impressions Chest X-Ray 08/15/22 18:21 SINGLE VIEW CHEST CLINICAL HISTORY: Overdose FINDINGS: An AP, portable, upright chest radiograph is compared to study dated 08/01/2022. The cardiomediastinal silhouette is unremarkable. The lungs and pleural spaces are clear. No pneumothorax is seen. The bony thorax is grossly intact. There is partial bony fusion of the right first and second ribs. IMPRESSION: No active disease in the chest. ACT 112: Negative or not required by law. Electronically signed by: Lex Ivan M.D. 08/15/2022 7:01 PM Code Status & VTE Plan Code Status Full code VTE Prophylaxis Plan VTE Prophylaxis will be ordered: Yes PG Care Time/CCT Total # of Minutes Spent Total Time Spent with Patient: Total time spent is greater than 50% in coordination of care (as documented) at patient's floor/unit and/or counseling patient: Coding Level of Care Code 91977 INT INP/OBS CARE 3/75MIN Diagnoses Depression with suicidal ideation F32.A; R45.851 Intentional overdose of insulin T38.3X2A Type I diabetes mellitus E10.9 GERD (gastroesophageal reflux disease) K21.9 Diabetic peripheral neuropathy E11.42 BERNARD (acute kidney injury) N17.9 B12 deficiency E53.8 MDD (major depressive disorder), recurrent episode, moderate F33.1 Intermittent explosive disorder in adult F63.81 Hypoglycemia E16.2 Hypokalemia E87.6 Hypophosphatemia E83.39
[2022-08-15] MEDS ORDERED: ACETAMINOPHEN 325 MG TAB PO PRN (22:40)
[2022-08-15] MEDS ORDERED: ONDANSETRON INJ 2 MG/ML 2 ML VIAL IV PRN (22:40)
[2022-08-16] MEDS: DEXTROSE 10% 1,000 ML IV SCH ×2 (01:51→06:06)
[2022-08-16 02:41] LABS: BUN Creatinine Ratio 17.3 (10-20); Calcium 7.7 mg/dl (8.6-10.3); Creatinine Clr Calc Pharmacy 80.4 ml/min; Est GFR (African American) 104.3 ml/min; Potassium 3.1 mmol/L (3.5-5.1)
[2022-08-16] MEDS: POTASSIUM CHLORIDE / WTR 10 MEQ/100 ML PLCT IV SCH ×2 (03:06→04:13)
[2022-08-16 04:10] LABS: Appearance Urine Clear (Clear); Bacteria Urine Automated Negative (Negative); Bilirubin Urine Negative (Negative); Blood Urine Negative (Negative); Color Urine Yellow; Glucose Urine UA 3+ (Negative); Ketones Urine 2+ (Negative); Leukocyte Esterase Urine Negative (Negative); Nitrite Urine Negative (Negative); Protein Urine 1+ (Negative); RBC Urine Automated 0-4 /hpf (0-4); Specific Gravity Urine 1.023 (1.000-1.030); Urobilinogen Urine Negative (Negative); pH Urine 5.5 (4.5-7.5)
[2022-08-16 04:33] LABS: Amphetamines+Metham, Urine Neg (Neg); Barbiturates, Urine Neg (Neg); Benzodiazepine, Urine Neg (Neg); Cocaine, Urine Neg (Neg); MDMA (Ecstacy), Urine Neg (Neg); Methadone, Urine Neg (Neg); Opiate, Urine Neg (Neg); Phencyclidine, Urine Neg (Neg)
[2022-08-16 05:17] LABS: Basophils # (auto) 0.05 K/uL (0-0.2); Basophils % (auto) 0.5 %; Eosinophils # (auto) 0.06 K/uL (0-0.50); Eosinophils % (auto) 0.6 %; Hematocrit (blood only) 31.6 % (42.0-52.0); Hemoglobin 11.2 g/dl (14.0-18.0); Immature Granulocytes # (auto) 0.06 K/uL (0.01-0.20); Immature Granulocytes % (auto) 0.6 %; Lymphocytes # (auto) 2.25 K/uL (1.2-3.4); Lymphocytes % (auto) 21.6 %; Mean Corpuscular Hemoglobin 34.5 pg (25.0-34.0); Mean Corpuscular Hgb Conc 35.4 g/dL (32.0-36.0); Mean Corpuscular Volume 97.2 fL (80.0-100.0); Mean Platelet Volume 8.3 fL (9.4-12.4); Monocytes # (auto) 0.82 K/uL (0.11-0.59); Monocytes % (auto) 7.9 %; Neutrophils # (auto) 7.18 K/uL (1.40-6.50); Neutrophils % (auto) 68.8 %; Platelet Count 302 K/uL (130-400); RDW Coefficient of Variation 13.2 % (11.5-14.5); RDW Standard Deviation 47.3 fL (36.4-46.3); Red Blood Count 3.25 M/uL (4.70-6.10); White Blood Count 10.42 K/ul (4.8-10.8)
[2022-08-16 05:18] LABS: Albumin Globulin Ratio 1.3 (0.9-2); Albumin Level 2.9 gm/dl (3.4-5.0); BUN Creatinine Ratio 17.8 (10-20); Bilirubin,Total 0.3 mg/dl (0.2-1.0); Calcium 7.5 mg/dl (8.6-10.3); Creatinine Clr Calc Pharmacy 92.9 ml/min; Est GFR (African American) 124.3 ml/min; Est GFR (Non-African American) 107.2 ml/min; Globulin 2.2 gm/dl (2.5-4.0); Magnesium 1.9 mg/dl (1.7-2.4); Potassium 3.3 mmol/L (3.5-5.1); Total Protein 5.1 gm/dl (6.0-8.3)
[2022-08-16] MEDS ORDERED: PHARMACY GLYCEMIC MGMT CONSULT PRN (11:07)
[2022-08-16] MEDS ORDERED: LANTUS PER UNIT CHARGE SQ STA (11:18)
[2022-08-16] MEDS ORDERED: LANTUS PER UNIT CHARGE SC ONE (11:30)
--- NOTE | 2022-08-16 11:32 | Hospitalist Progress Note ---
Date of Service August 16, 2022 Assessment & Plan (1) Intentional overdose of insulin: Plan: 37 M with PMH of DM1, GERD, diabetic peripheral neuropathy, BERNARD, MDD, intermittent explosive disorder, who presented to the hospital after attempting suicide using insulin. Now admitted for medical supervision, awaiting likely transfer for further psychiatric evaluation/management. Intentional overdose of insulin/insulin toxicity -Unclear how many units of insulin patient took last night. Talk screen negative. Urine marijuana screen positive. -Glucose of 48 on arrival. Potassium sammie of 3.1. Repleted on admission. Glycemia is now resolved. -Per outpatient [facility] visit notes, patient previously on valproic acid. However, patient had stopped taking approximately 6 months ago. When asked this morning, patient does not remember being on an antidepressant at all. * Psychiatry consult placed. Appreciate recommendations * Trend daily labs. Replete electrolyte derangements as needed. Type 1 diabetes mellitus -Patient takes 15 units glargine nightly, as needed short acting insulin at mealtime at home. Most recent hemoglobin A1c, obtained admission, of 10.3. -Serum glucose 48 on arrival. A.m. glucose 84. Increased to 475 by midmorning. Patient asymptomatic. -Gave nightly insulin dose immediately, with SSI coverage as needed. * Continue home regimen. May cover with half nightly dose tonight, as patient already received 15 units this morning. Major depressive disorder/intermittent explosive episode disorder -Patient not on any antidepressant medications at this time. -Patient previously on Depakote, per outpatient primary care records. Records also show patient stopped taking at least 6 months ago. -Patient did not provide any reason for discontinuing medication, nor does he remember ever being on Depakote despite documentation to the contrary. * Psych consult placed for assessment/medical management. Appreciate recommendations. Code: Full code Dispo: PCU FEN/GI: Heart healthy. Carb count DVT Prophylaxis: Lovenox 40 mg q24h PT/OT: No Consults: Psychiatry Case Management: Yes (2) Depression with suicidal ideation: (3) Type I diabetes mellitus: (4) GERD (gastroesophageal reflux disease): (5) Diabetic peripheral neuropathy: Admission and Anticipated Discharge Date Admission Date: August 15, 2022 Supervising Physician Co-Signing Physician Notes I personally examined the patient and verified all suarez points of history and exam, discussed case, and agree with decision making with Dr Okulate Physically feeling okay. Not very talkative. No new complaints. Vitals noted, in general he is awake and alert flat affect no distress. [place] thing unlabored no accessory muscle use good effort. Skin shows no rashes no pallor or icterus. Overdose by insulinsugars are rising, appears quite consistent with his insulin overdose wearing off. Fortunately seems to be out of danger. Depression/suicidality per psychiatry Uncontrolled type 1 diabetesbasal bolus management Otherwise as above Subjective Patient asleep with one-to-one observer at bedside. Patient is easily aroused by voice. Patient appears slightly irritable. He admits that he tried to kill himself using insulin. He still does not recall exactly how much insulin he took or what he took. He has no acute complaints at this time. Review of Systems Review of Systems: All systems reviewed & are unremarkable except as noted in HPI & below Physical Exam Physical Exam: General: No acute distress. Flat affect. HEENT: PERRLA. Normal conjunctiva, anicteric sclera. Oropharynx normal. Respiratory: Normal respiratory effort, CTABL. Cardiovascular: RRR without murmurs, gallops, or rubs. No edema. GI: Soft abdomen with normal bowel sounds heard on auscultation. Nontender x4 quadrants Neuro: Alert and oriented x3. Results & Data Results & Data Vital Signs (Past 12 Hours) Vital Signs Temp Pulse Pulse Pulse Resp BP Pulse Ox 08/16/22 11:07 36.7 C 103 H 22 104/66 96 08/16/22 08:30 97 H 08/16/22 07:11 36.6 C 95 H 18 97/63 L 98 08/16/22 03:00 36.8 C 101 H 16 95/62 L 98 08/16/22 00:38 36.5 C 114 H 16 103/70 96 O2 Del Method 08/16/22 11:07 Room Air 08/16/22 08:30 08/16/22 07:11 Room Air 08/16/22 03:00 Room Air 08/16/22 00:38 Room Air Resident Activity Tracking Resident Involvement: Resident Care Provided Care Provided: Adult Hospital Medicine
--- NOTE | 2022-08-16 11:42 | Pharmacy Report ---
Pharmacy Glycemic Short Note 2 - Date of Service August 16, 2022 - Glycemic Short BSG Results (Last 24 hours): 08/15/22 08/15/22 08/15/22 18:10 18:37 18:39 Glucose 48 L* POC Glucose 209 H 383 H* 08/15/22 08/15/22 08/15/22 19:20 20:21 20:53 Glucose POC Glucose 117 H 58 L* 467 H* 08/15/22 08/15/22 08/15/22 21:33 22:04 22:04 Glucose POC Glucose 276 H 96 96 08/15/22 08/15/22 08/16/22 22:32 23:52 00:58 Glucose POC Glucose 79 77 74 08/16/22 08/16/22 08/16/22 01:20 01:22 01:54 Glucose 98 POC Glucose 362 H* 239 H 08/16/22 08/16/22 08/16/22 02:00 03:04 04:12 Glucose POC Glucose 100 H 107 H 147 H 08/16/22 08/16/22 08/16/22 04:33 05:10 06:10 Glucose 84 POC Glucose 101 H 162 H 08/16/22 08/16/22 08/16/22 07:08 08:09 09:09 Glucose POC Glucose 146 H 257 H 383 H* 08/16/22 08/16/22 08/16/22 09:10 11:03 11:04 Glucose POC Glucose 323 H* 420 H* 475 H* OUTPATIENT ANTIDIABETIC REGIMEN: * Non-compliant * On interview with patient, he reports taking Humalog 20 units TIDM and "doesn't bother" with Lantus HbA1c: 10.3% (08/16/22) ASSESSMENT: * TM is a 37 year old male presented to ED following intentional insulin overdose (unclear how much insulin was actually administered) * BSGs highly labile yesterday evening and he required multiple D50W pushes and subsequent D10W infusion * No ongoing insulin orders established - pharmacy consulted for glycemic management at lunchtime today (08/16) for BSG of 475 mg/dL * Most recent potassium of 3.3 - received 20 mEq KCl and ~44 mEq of potassium in form of Kphos * Recheck ordered * Will order initial SC regimen for now - potentially add on IV insulin bolus pending repeat BSG and potassium * construction grip consulted for help establishing outpatient regimen/follow-up PLAN FOR INPATIENT GLYCEMIC CONTROL: * Basal insulin * Lantus 15 units SC x 1 * Bolus insulin * NovoLog per scale ACHS or Q6hrs while NPO * Goal Range: Low 120 mg/dL - High 160 mg/dL * Correction Factor: 35 mg/dL/unit * Nutritional / Prandial insulin per carb ratio of 1 unit per 12 grams CHO consumed
--- NOTE | 2022-08-16 11:56 | Psychiatric Consultation ---
Date of Consultation August 16, 2022 Impression / Recommendations Impression 37 y/o man with history of recurrent major depression and intermittent explosive disorder and numerous suicide gestures via overuse of insulin. He is currently very depressed, possibly precipitated by a breakup with a girlfriend and being unhoused. He was brought to the hospital with an incomplete section 302 warrant, but is currently interested in treatment. (1) Major depressive disorder, recurrent severe without psychotic features: Present on Admission?: Yes (2) Intermittent explosive disorder: Present on Admission?: Yes Plan As it stands now, pt is here voluntarily. If he's medically stable and asks to leave, we can assess at that time whether he meets criteria for involuntary emergency psychiatric admission. I don't recommend starting antidepressant medication at this time. Pt would like to resume bupropion, but it's listed as being associated with problematic adverse effects in the past. He would most likely benefit from psychiatric hospitalization once medically stable. Due to his history and current status of the unit, he would not be a candidate for admission here. Psych History Identifying Data HERBER VARGHESE is a 37-year-old male with a history of depression, admitted on 08/15/2022 for hypoglycemia following reported insulin overdose. Consult is by the hospitalist service for "intentional overdose with insulin". Chief Complaint "Not great, I guess". History of Present Illness As part of a thorough review of the available medical records, I have read and confirmed the following note by the ED physician: "This is a 57-year-old male who presents to the ED with a chief complaint of an intentional insulin overdose. The patient states that he did this for multiple reasons including a recent break-up with his girlfriend. He took the Novolin R around 5 PM. He is inconsistent with how much he took. He states initially 200 to 300 units but then stated he took the entire vial plus some from another vial which the vial contains 1000 units. The patient had a prehospital blood sugar in the 60s. He was 56 here. The patient did receive 50 g of oral glucose prehospital. The patient was a little lethargic on my exam but answers questions appropriately. He seems to be not completely forthcoming with regards to his answers. His vital signs reveal heart rate of 130. Blood pressure 105/61. Saturations 100% on room air. Afebrile. The patient has a smell of ketones on his breath. Lungs are clear. His heart rate is elevated. Abdomen soft nontender. No other evidence of trauma. Twelve-lead EKG shows a sinus tach at a rate of 124. White blood cell count was 12.3. Lactic acid is 3.2. Negative salicylate or Tylenol or alcohol. Chemistry panel otherwise unremarkable. COVID test was negative. ABG shows a normal pH, normal PCO2 and normal oxygen. EKG showed a sinus tach. The patient had a blood sugar of 48." and the following excerpts from the hospitalist's H&P: "The patient presents to the emergency department via EMS after he called them and reported that he intentionally had taken an insulin overdose of Novolin R around 5 PM this evening" "The patient is a 37-year-old male with a past medical history including DKA, diabetes mellitus type 1, GERD, diabetic peripheral neuropathy, acute URI, bilateral lower extremity edema, BERNARD, B12 deficiency, tobacco use, intermittent explosive disorder in adult and MDD recurrent, moderate. The patient was inconsistent about the amount of additional insulin that he took. His glucose was 48 on admission labs. He did receive dextrose 50 few times, with blood sugar increasing and then rapidly dropping back down into the double digits again. The patient was then started on D10 at 200 mils per hour, and referred for evaluation for admission" Further review of the available records indicates he was seen for psychiatric consultation in July 2021 after he made suicidal threats then retracted them, saying "I say shit all the time". He was reported to have made "numerous" suicide attempts by insulin overdose in the past. It is unclear why none of those attempts succeeded as he accumulated data about failed doses. He was admitted for DKA on 08/01/2022, but it doesn't appear as if he made any reference to suicidal thoughts or even depressed mood at that time. The available records do not indicate any prescribed psychiatric medications. Pt was dropped off in the ED by police who completed part of a section 302 warrant (but did not document the time). Among numerous lab abnormalities, blood glucose by venipuncture was 48 mg/dL yesterday at 1810, 98 mg/dL at 0154 today, and 84 mg/dL at 0433. Hourly POC blood glucose was 209 mg/dL at 1837 (after administration of glucose), dropped to 96 mg/dL by 2203 and remained in the normal range until 0120, since when it's been elevated in the range of 100 mg/dL to 475 mg/dL. Pt has reported a broad range of amounts of insulin he took when speaking to different staff members, ranging from 100 u to 1,000 u. On approach this is a heavily-tattooed man lying in bed. He speaks very softly and turns his head away from me when he speaks. He picks at multiple scabs on his knuckles but can't say how he got them. He tells me he "overdosed on insulin" because "it just isn't worth it any more". He says he "took a good amount" based on what he "felt like would do the job". He is evasive about what he means by "do the job", and generally presents as evasive and vague. He cites recent stressors of his "girlfriend doesn't care" and being unhoused. He says he's been sleeping poorly and has no appetite. There are several snacks untouched on his tray table. He appears apathetic. He says he feels "very depressed" and would like to pursue treatment. Pt says he was previously treated with bupropion which he tells me "really helped a lot" (note that it was previously reported to have increased irritability and anger outbursts) and denies any other antidepressant trials (which seems unlikely). Past Psychiatric History Current Psychiatric Diagnosis: Recurrent Major Depression, Intermittent Explosive Disorder Outpatient Services: none Previous Psych Admissions: many, most recently in 2019 Do You Have Access To A Gun?: No History of Previous Suicide Attempt: Yes Describe Attempts in the Past: reportedly "numerous" attempts at insulin overdose Past Medication Trials: bupropion (increased irritability and anger outbursts); trazodone (helped with insomnia) Allergies Allergy/AdvReac Type Severity Reaction Status Date / Time codeine Allergy Intermediate Rash Verified 08/15/22 18:59 erythromycin base Allergy Unknown HAPPENED Verified 08/15/22 18:59 A SMALL CHILD Home Medications Medication Instructions Recorded Confirmed Type blood sugar diagnostic (OneTouch #100 ea 07/31/21 08/01/22 Rx Verio test strips) insulin syringe-needle U-100 0.3 #100 ea 07/31/21 08/04/22 Rx mL 31 gauge x 15/64" lancets 33 gauge (OneTouch Delica #100 ea 07/31/21 08/01/22 Rx Lancets) acetaminophen 500 mg tablet 100 - 1,500 mg PO Q8 PRN Pain 05/15/22 08/15/22 History (Tylenol Extra Strength) albuterol sulfate 90 mcg/actuation 2 puff inhalation Q6H PRN 06/07/22 08/15/22 Rx aerosol inhaler shortness of breath or wheezing #8.5 grams insulin glargine 100 unit/mL (3 15 unit (0.15 mL) SC [facility] #15 mL 07/04/22 08/15/22 Rx mL) subcutaneous pen (Lantus Solostar U-100 Insulin) gabapentin 100 mg capsule 100 mg PO TID 07/11/22 08/15/22 History insulin lispro 100 unit/mL 20 unit (0.2 mL) subcut TID PRN 07/26/22 08/15/22 Rx subcutaneous cartridge (Humalog hyperglycemia #15 mL U-100 Insulin) Patient History Medical History (Updated 08/16/22 @ 15:58 by Sam Choi MD) Diabetic peripheral neuropathy DKA (diabetic ketoacidosis) Encounter for examination following treatment at hospital GERD (gastroesophageal reflux disease) MDD (major depressive disorder), recurrent episode, moderate Type I diabetes mellitus Surgical History No significant past surgical history Family History Other Diabetes Social History Smoking Status: Current every day smoker Tobacco Type: Cigarettes Cigarettes Per Day: 1 pack; Second Hand Exposure: No; Do You Dip or Chew Tobacco: No; Hx Alcohol Use: No Hx Substance Use: No Preferred Language: Icelandic Communication Ability: Effective Visual Impairment: Limited Hearing Ability: Normal Novelty Maker Required: No Beliefs That Will Affect Care: None marital status: Single Current Living Situation: Other Current Living Situation Comment: homeless current occupational status: disabled How many Children do You have: 0 Feels Safe at Home: Hesitant to Answer Childhood Exposure to Second-Hand Smoke: No Diet: diabetic and regular caffeine: Yes during the past year weight has: remained stable Dental Care, Regularly: Yes Physical Activity Frequency: Daily Seatbelt Use: always Sunscreen Use: No Do you think of yourself as: straight/heterosexual Sexual Activity: has been sexually active within the last 12 months Gender Identity: Male Assistive Devices: None Physical Exam Psychiatric: Orientation: oriented to person, oriented to place and oriented to time; + not alert (drowsy) Apperance: + disheveled; + did not appear stated age (older) Thin, tattooed, with scabbed knuckles limited Motor Behavior: + psychomotor retardation Speech: + abnormal rate/rhythm/volume of speech (increased latency of response, slow, very quiet, brief) Affect: + constricted affect Mood: + depressed mood Thought Process: + circumstantial thought process Thought Content: + cognitive distortions Suicidal Thoughts: denies suicidal intent; + reports suicidal thoughts ("kind of still having thoughts") and + reports suicidal plan ("would use insulin, I guess") Homicidal Thoughts: denies homicidal thoughts Hallucinations: no auditory hallucinations and no visual hallucinations Cognition: + recent memory not intact, + remote memory not intact and + attention not intact (distracted) Estimated Intelligence: average estimated intelligence Insight: + limited insight Judgment: + impaired judgement Vital Signs (Past 24 Hours): Last Vital Signs Temp 36.6 C 08/16/22 07:11 Pulse 97 H 08/16/22 08:30 Resp 18 08/16/22 07:11 BP 97/63 L 08/16/22 07:11 Pulse Ox 98 08/16/22 07:11 O2 Del Method Room Air 08/16/22 07:11 Exam Statement: I've reviewed the examinations done by the ED physician and by the hospitalist Review of Systems Psychiatric: as per Subjective / HPI, + depression, + anhedonia, + abnormal sleep pattern, + change in appetite, + suicidal ideation and + substance abuse (cannabis) Results & Data (PSY) Medications Administered Dextrose (Dextrose 50% 50 Ml Syringe) 50 ml IV Q1H PRN PRN Reason: Hypoglycemia Treatment Stop: 09/14/22 20:44 Last Admin: 08/16/22 01:15 Dose: 50 ml Documented By: FRANK Dextrose (D10w) 1,000 mls @ 200 mls/hr IV .Q5H RISSA Stop: 09/15/22 01:44 Last Infusion: 08/16/22 09:25 Dose: 0 mls/hr Documented By: Admin: 08/16/22 06:06 Dose: 200 mls/hr Documented By: Infusion: 08/16/22 06:06 Dose: 200 mls/hr Documented By: Admin: 08/16/22 01:51 Dose: 200 mls/hr Documented By: FRANK Coding Level of Care Code 55720 IN/OBS CONSULT LVL 4,60M Diagnoses Major depressive disorder, recurrent severe without psychotic features F33.2 Intermittent explosive disorder F63.81 Time Spent (min) 73
[2022-08-16 12:09] LABS: Estimated Average Glucose 249 mg/dl; Hemoglobin A1C 10.3 % (4.5-5.6)
[2022-08-16 12:11] LABS: BUN Creatinine Ratio 14.1 (10-20); Calcium 7.8 mg/dl (8.6-10.3); Creatinine Clr Calc Pharmacy 98.4 ml/min; Est GFR (African American) 127.2 ml/min; Est GFR (Non-African American) 109.8 ml/min; Phosphorus 2.6 mg/dl (2.5-4.9); Potassium 3.9 mmol/L (3.5-5.1)
[2022-08-16] MEDS: INSULIN ASPART PER UNIT CHARGE SC SCH ×4 (12:17→20:27)
--- NOTE | 2022-08-16 15:04 | Billing Data ---
Date of Service August 16, 2022 Coding Level of Care Code 60579 SUB INP/OBS CARE
[2022-08-16 17:20] LABS: BUN Creatinine Ratio 13.1 (10-20); Creatinine Clr Calc Pharmacy 78.1 ml/min; Est GFR (African American) 100.8 ml/min; Potassium 4.1 mmol/L (3.5-5.1)
[2022-08-16 17:21] LABS: Phosphorus 2.5 mg/dl (2.5-4.9)
[2022-08-17] MEDS ORDERED: INSULIN ASPART PER UNIT CHARGE SC SCH
--- NOTE | 2022-08-17 05:32 | Electrocardiogram Report ---
Test Reason : Blood Pressure : / mmHG Vent. Rate : 124 BPM Atrial Rate : 124 BPM P-R Int : 124 ms QRS Dur : 084 ms QT Int : 426 ms P-R-T Axes : 000 055 067 degrees QTc Int : 612 ms Sinus tachycardia Nonspecific T wave abnormality When compared with ECG of 01-AUG-2022 19:53, Nonspecific T wave abnormality, worse in Lateral leads Confirmed by Rush Laguerre ([id number]) on 08/17/2022 5:32:28 AM Referred By: REFERRED SELF Confirmed By:Rush Laguerre
[2022-08-17 06:21] LABS: Basophils # (auto) 0.04 K/uL (0-0.2); Basophils % (auto) 0.6 %; Eosinophils # (auto) 0.06 K/uL (0-0.50); Eosinophils % (auto) 0.9 %; Hemoglobin 12.5 g/dl (14.0-18.0); Immature Granulocytes # (auto) 0.03 K/uL (0.01-0.20); Immature Granulocytes % (auto) 0.5 %; Lymphocytes # (auto) 1.73 K/uL (1.2-3.4); Lymphocytes % (auto) 26.5 %; Mean Corpuscular Hemoglobin 34.6 pg (25.0-34.0); Mean Corpuscular Hgb Conc 35.7 g/dL (32.0-36.0); Mean Platelet Volume 8.5 fL (9.4-12.4); Monocytes # (auto) 0.44 K/uL (0.11-0.59); Monocytes % (auto) 6.7 %; Neutrophils # (auto) 4.22 K/uL (1.40-6.50); Neutrophils % (auto) 64.8 %; Platelet Count 269 K/uL (130-400); RDW Coefficient of Variation 12.9 % (11.5-14.5); RDW Standard Deviation 46.2 fL (36.4-46.3); Red Blood Count 3.61 M/uL (4.70-6.10); White Blood Count 6.52 K/ul (4.8-10.8)
[2022-08-17 06:39] LABS: Albumin Globulin Ratio 1.3 (0.9-2); BUN Creatinine Ratio 18.8 (10-20); Bilirubin,Total 0.4 mg/dl (0.2-1.0); Est GFR (African American) 130.4 ml/min; Est GFR (Non-African American) 112.5 ml/min; Globulin 2.3 gm/dl (2.5-4.0); Magnesium 2.1 mg/dl (1.7-2.4); Phosphorus 3.2 mg/dl (2.5-4.9); Potassium 3.4 mmol/L (3.5-5.1); Total Protein 5.3 gm/dl (6.0-8.3)
[2022-08-17] MEDS ORDERED: POTASSIUM CHLORIDE CRTAB 20 MEQ TABCR PO STA (08:02)
[2022-08-17] MEDS ORDERED: LANTUS PER UNIT CHARGE SC ONE (08:15)
[2022-08-17] MEDS: INSULIN ASPART PER UNIT CHARGE SC SCH ×3 (08:27→18:03)
[2022-08-17] MEDS ORDERED: ENOXAPARIN INJ 40 MG/0.4 ML SYR SQ SCH (09:00)
--- NOTE | 2022-08-17 10:09 | Pharmacy Report ---
Pharmacy Glycemic Short Note 2 - Date of Service August 17, 2022 - Glycemic Short BSG Results (Last 24 hours): 08/16/22 08/16/22 08/16/22 11:03 11:04 11:30 Glucose 382 H* POC Glucose 420 H* 475 H* 08/16/22 08/16/22 08/16/22 12:05 12:06 14:06 Glucose POC Glucose 416 H* 386 H* 236 H 08/16/22 08/16/22 08/16/22 16:46 16:59 17:01 Glucose 263 H POC Glucose 309 H* 306 H* 08/16/22 08/16/22 08/17/22 20:12 23:58 00:00 Glucose POC Glucose 158 H 302 H* 280 H 08/17/22 08/17/22 05:38 07:37 Glucose 116 H POC Glucose 128 H OUTPATIENT ANTIDIABETIC REGIMEN: * Non-compliant * On interview with patient, he reports taking Humalog 20 units TIDM and "doesn't bother" with Lantus HbA1c: 10.3% (08/16/22) ASSESSMENT: 08/17/22: * BSGs unsurprisingly labile yesterday in light of unknown amount of insulin administered on 08/15/22 and D10W infusion * Fasting BSG of 128 mg/dL this morning - will plan to continue current basal insulin * Tightened Novolog parameters slightly given persistent hyperglycemia yesterday 08/16/22: * TM is a 37 year old male presented to ED following intentional insulin overdose (unclear how much insulin was actually administered) * BSGs highly labile yesterday evening and he required multiple D50W pushes and subsequent D10W infusion * No ongoing insulin orders established - pharmacy consulted for glycemic management at lunchtime today (08/16) for BSG of 475 mg/dL * Most recent potassium of 3.3 - received 20 mEq KCl and ~44 mEq of potassium in form of Kphos * Recheck ordered * Will order initial SC regimen for now - potentially add on IV insulin bolus pending repeat BSG and potassium * natural resources extension educator consulted for help establishing outpatient regimen/follow-up PLAN FOR INPATIENT GLYCEMIC CONTROL: * Basal insulin * Lantus 15 units SC daily * Bolus insulin * NovoLog per scale ACHS or Q6hrs while NPO * Goal Range: Low 120 mg/dL - High 160 mg/dL * Correction Factor: 30 mg/dL/unit * Nutritional / Prandial insulin per carb ratio of 1 unit per 10 grams CHO consumed
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
--- NOTE | 2022-08-17 18:13 | Billing Data ---
Date of Service August 17, 2022 Coding Level of Care Code 11696 IN/OBS DISCH 30 MIN/LESS
--- NOTE | 2022-08-17 19:09 | Discharge Summary ---
Date of Service August 17, 2022 Admission HPI Per Admitting Provider The patient is a 37-year-old male with a past medical history including DKA, diabetes mellitus type 1, GERD, diabetic peripheral neuropathy, acute URI, bilateral lower extremity edema, BERNARD, B12 deficiency, tobacco use, intermittent explosive disorder in adult and MDD recurrent, moderate. The patient was inconsistent about the amount of additional insulin that he took. His glucose was 48 on admission labs. He did receive dextrose 50 few times, with blood sugar increasing and then rapidly dropping back down into the double digits again. The patient was then started on D10 at 200 mils per hour, and referred for evaluation for admission Significant laboratories: Potassium 3.3, glucose 48, creatinine 1.48, WBC 12.37, lactic acid 3.2 and phosphorus 1.6. Patient is COVID-19 negative Admission Exam Per Admitting Provider The patient is sedated, but rouses spontaneously, well developed and well nourished, normocephalic and atraumatic, lying in bed and in no acute distress. HEENT--PERRL, EOMI, mucous membranes and oropharynx dry. Neck--supple. No JVD. No bruits. Thyroid normal, trachea midline, no adenopathy. Heart--normal S1 and S2. No murmurs, rubs or gallops. Lungs--clear bilaterally, no respiratory distress, no accessory muscle use. Abdomen--normal bowel sounds and soft. Nontender. Nondistended, no hernias or masses, no organomegaly. Extremities--no cyanosis or clubbing. No edema. There are good distal pulses b/l. Dermatologic--normal skin turgor, normal color, no abnormal lymph nodes, no rash. Neurologic--cranial nerves II through XII grossly intact. Rheumatologic--normal range of motion. Psychiatric--flat affect. Principal Diagnosis Insulin overdose Discharge Exam General: No acute distress. Flat affect. HEENT: PERRLA. Normal conjunctiva, anicteric sclera. Oropharynx normal. Respiratory: Normal respiratory effort, CTABL. Cardiovascular: RRR without murmurs, gallops, or rubs. No edema. GI: Soft abdomen with normal bowel sounds heard on auscultation. Nontender x4 quadrants Neuro: Alert and oriented x3. Discharge Data Allergies Allergy/AdvReac Type Severity Reaction Status Date / Time codeine Allergy Intermediate Rash Verified 08/15/22 18:59 erythromycin base Allergy Unknown HAPPENED Verified 08/15/22 18:59 A SMALL CHILD Consultations 08/15/22 20:04 ED Decision to Admit Stat 08/15/22 21:29 Consult Psychiatry Routine 08/16/22 00:44 Consult Behavioral Health Liaison Routine Hospital Course (1) Intentional overdose of insulin: 37 M with PMH of DM1, GERD, diabetic peripheral neuropathy, BERNARD, MDD, intermittent explosive disorder, who presented to the hospital after attempting suicide using insulin. Now admitted for medical supervision, awaiting likely transfer for further psychiatric evaluation/management. Intentional overdose of insulin/insulin toxicity -Unclear how many units of insulin patient took last night. Talk screen negative. Urine marijuana screen positive. -Glucose of 48 on arrival. Potassium sammie of 3.1. Repleted on admission. Glycemia is now resolved. -Per outpatient FCM visit notes, patient previously on valproic acid. However, patient had stopped taking approximately 6 months ago. When asked this morning, patient does not remember being on an antidepressant at all. * Psychiatry consult placed. Appreciate recommendations * Trend daily labs. Repleted electrolyte derangements as needed. Type 1 diabetes mellitus -Patient takes 15 units glargine nightly, as needed short acting insulin at mealtime at home. Most recent hemoglobin A1c, obtained admission, of 10.3. -Serum glucose 48 on arrival. A.m. glucose 84. Increased to 475 by midmorning. Patient asymptomatic. -Gave nightly insulin dose immediately, with SSI coverage as needed. * Otherwise, continued home regimen. Major depressive disorder/intermittent explosive episode disorder -Patient not on any antidepressant medications at this time. -Patient previously on Depakote, per outpatient primary care records. Records also show patient stopped taking at least 6 months ago. -Patient did not provide any reason for discontinuing medication, nor does he remember ever being on Depakote despite documentation to the contrary. * Psych consult placed for assessment/medical management. * Initially 302'd but this was discontinued following second evaluation. Per psych note dated 08/17/22: The patients 302 warrant has been dispositioned as on exam, the patient is not in need of emergency treatment because his mood is euthymic and he no longer has suicidal thoughts. He is no longer requiring 1-on-1 for psychiatric hold; the attending hospitalist was notified to make a determination of ongoing need for an aide for safety. If the patient attempts to leave AMA, he has the capacity to leave as he no longer meets criteria for involuntary emergency treatment. Pt has follow-up outpatient appointments and no longer appears to need psychiatric hospitalization. I recommend he be released to return home for outpatient follow-up. (2) Depression with suicidal ideation: (3) Type I diabetes mellitus: (4) GERD (gastroesophageal reflux disease): (5) Diabetic peripheral neuropathy: Total Time Total Time Spent Total Time Spent (In Minutes): <30 Discharge Plan Discharge Items Patient Disposition: Home - Self-Care Reason For Visit: INTENTIONAL INSULIN OD Discharge Diagnosis: Intentional insulin overdose. Activity: Per Instructions section Non-emergency contact: Primary Care Provider Call non-emergency contact if: you have any medication questions Follow-up/Referrals: Carolyn Story MD [Primary Care Provider] - Diet: Regular Addtl Attending Provider Instructions: Dear Laron, You were brought to the hospital due to concerns for intentional overdose of insulin. You were treated with IV fluids and replaced the electrolytes you lost. We also had you evaluated by our hospital psychiatrist. Now that you are stable from a medical standpoint and have been evaluated by the psychiatrist, we believe that you can be safely discharged home. * We sent a prescription for short acting insulin to your pharmacy. Please take your insulin for mealtime coverage according to your usual regimen. We made no change to the dose. * Continue to take your other medications as prescribed. * It is important that you go to all of your follow-up outpatient appointments. If you are unable to make it or have trouble securing transportation to your appointment, please contact the hospital at [phone] to arrange alternate options. It has been our pleasure to care for you here at [facility]. Pending Studies at Discharge: No Stand-Alone Forms: My [facility] [employer], Smoking Cessation Medications and DC Order Prescriptions: Continued albuterol sulfate 90 mcg/actuation HFA aerosol inhaler 2 puff inhalation Q6H PRN (Reason: shortness of breath or wheezing) Qty: 8.5 5RF insulin glargine [Lantus Solostar U-100 Insulin] 100 unit/mL (3 mL) insulin pen 15 unit SC [facility] Qty: 15 0RF (DME) lancets [OneTouch Delica Lancets] 33 gauge misc See Rx Instructions .Route Qty: 100 0RF Rx Instructions: As directed (DME) OneTouch Verio test strips Strip See Rx Instructions .Route Qty: 100 1RF Rx Instructions: As directed (DME) insulin syringe-needle U-100 0.3 mL 31 gauge x 15/64" syringe See Rx Instructions .Route Qty: 100 0RF Rx Instructions: As directed acetaminophen [Tylenol Extra Strength] 500 mg Tablet 100 - 1,500 mg PO Q8 PRN (Reason: Pain) gabapentin 100 mg capsule 100 mg PO TID Humalog U-100 Insulin 100 unit/mL cartridge 20 unit SUBCUT TID PRN (Reason: hyperglycemia) Qty: 15 5RF Discharge Orders: Discharge Order (Routine); Ordered 08/17/22 Ordered By: Jose M Ramírez/Other Patient Handouts: Managing Type 1 Diabetes, Special Foot Care for Diabetes Admission Data Admit Date/Time: 08/15/22 20:20 Attending Provider: Earl Verma Admit Provider: Kenny Aguilar Primary Care Provider: Carolyn Story Other Providers: Kenny Aguilar ; Danielle Wood ; Luisa Smart ; Sam Choi Other Interventions: Discharge Summary Assessment (RN) Last Done: 08/17/22 19:09 Supervising Physician Co-Signing Physician Notes I personally examined the patient and verified all suarez points of history and exam, discussed case, and agree with decision making with Dr Coburn Physically feeling okay. Not very talkative. psychiatry revisited - not suicidal and safe for home. Vitals noted, in general he is awake and alert flat affect no distress. Breathing unlabored no accessory muscle use good effort. Skin shows no rashes no pallor or icterus. Overdose by insulinsugars are rising, appears quite consistent with his insulin overdose wearing off. Fortunately seems to be out of danger. Depression/suicidality per psychiatry no longer suicidal (or may not have been ever) - either way safe for home Uncontrolled type 1 diabetesbasal bolus management Otherwise as above Resident Activity Tracking Resident Involvement: Resident Care Provided Care Provided: Adult Hospital Medicine
[2022-08-18 09:28] LABS: Marijuana Quant, GCMS Urine 85 ng/mL (<5)
== END 2022-08-17 19:43 | disposition home or self-care (01) | DRG 918 ==
LOC: ED 18:04 → 4W 20:20 → SUATTDRO 20:20 → 4W 21:49

== ENCOUNTER 2022-10-04 19:20 | Inpatient (IN) ==
[2022-10-04] MEDS ORDERED: SODIUM CHLORIDE 0.9% 1000ML 2,000 ML IV ONE (20:00)
[2022-10-04] MEDS ORDERED: CEFEPIME 2,000 MG/20 ML VIAL IV STA (20:00)
--- NOTE | 2022-10-04 20:05 | Emergency Department Note ---
Impression & Plan Altered mental status, DKA (diabetic ketoacidosis), Acute dehydration, Elevated lactic acid level, Tachycardia, Tachypnea ED Provider Note NAME: HERBER VARGHESE AGE: 37 SEX: M : 1985 ARRIVES VIA: Ambulance INFORMANT: [Patient] ED PROVIDER(S): [Lex Toro MD] CHIEF COMPLAINT: Illness HISTORY OF PRESENT ILLNESS: The patient is a 37-year-old male who states that he has not felt well today. He feels weak and thirsty. As per triage, the patient's blood sugar was high and there was concern for DKA. The patient is a poor historian. He denies pain, he denies vomiting, he denies cough or shortness of breath or fever. He is a type I diabetic. The patient was in this ED 3 days ago for a right humeral fracture PMHx/PSHx: See Below SOCIAL HISTORY: See Below. PHYSICAL EXAM: GENERAL: Patient is in mild distress, seems agitated. HEENT: No acute trauma, normocephalic atraumatic, mucous membranes markedly dry, no nasal congestion. NECK: No stridor, no adenopathy, no meningismus, trachea is midline. LUNGS: Clear to auscultation bilaterally, no wheeze, no rhonchi, breath sounds equal. Increased respiratory rate but no respiratory distress. HEART: Moderately tachycardic, regular rhythm, no murmurs. ABDOMEN: Soft, nontender, bowel sounds positive, no peritonitis. EXTREMITIES: No cyanosis or edema, full range of motion of all the joints without pain or difficulty, no signs for acute trauma. NEUROLOGIC: Somnolent, awakes to voice, answers questions. There is some slight slurring of his speech I believe from his very dry mouth. SKIN: No rash, no jaundice, no diaphoresis. DIFFERENTIAL DIAGNOSIS: DKA, dehydration, electrolyte imbalance, renal or liver failure, sepsis or bacteremia, among others. EMERGENCY DEPARTMENT COURSE/PROCEDURES: Prior/Outside records reviewed: Recent ED note. EMS notes. ECG per my interpretation: Indication was weakness and tachycardia. The ECG shows a sinus tachycardia with a rate of 137. There is some baseline artifact. No ST elevation, no PVCs. There is a potential old septal infarct. QTc is 428. Continuous Cardiac Monitoring per my interpretation: An order was placed for continuous cardiac monitoring. The monitor shows a rate of 132 with sinus tachycardia. Critical Care Note: I have personally spent 52 minutes of critical care time in the direct management of this patient. This includes bedside care, interpretation of diagnostic studies, and testing, discussion with consultants, patient, and family members, and other required patient management activities. This 52 minutes is in excess of all separately billable procedures. MEDICAL DECISION MAKING: There is a mild leukocytosis, this would be consistent with potential infection or just the stress of his presentation. Patient was anemic with a hemoglobin of 11.9. The patient's anemia has been documented before. There was a normal platelet count. No coagulopathy. ABG showed a metabolic acidosis. There was some respiratory compensation. Renal panel testing showed acidosis and an anion gap of 34. BUN was elevated consistent with dehydration. Glucose was high at over 600. Lactic acid level was elevated consistent with infection versus dehydration. No concerning liver enzyme elevation. ECG showed a sinus tachycardia, no obvious ischemia. Cardiac enzyme testing x1 was slightly el evated. This elevation could be secondary to mismatch versus cardiac ischemia. Patient has been known to run a slightly high troponin when looking back at previous testing. No evidence for pancreatitis. Urinalysis showed dehydration, no infection. COVID test returned negative. Urine tox returned negative. Chest film per my review did not show CHF or pneumonia. On exam, the patient appeared quite dehydrated. He was somnolent. He was tachycardic. He was tachypneic. The patient was aggressively managed. He had an IV placed by the IV team. The patient with his constant movement and agitation dislodged this IV and a second 1 was placed. Patient did have an intraosseous line placed in the left tib-fib. Patient received IV saline, 2 L. He was ordered for 50 mEq of IV bicarb. He received IV Zofran for nausea. He was given a total of 1.5 mg of IV Ativan for his agitation. He was given 5 mg of Haldol IM and eventually 2.5 mg of Haldol IV. He was placed on an insulin drip. He received IV cefepime as empiric antibiotic coverage. The patient became combative while here in the ED. Restraints were applied to prevent harm to the staff and the patient himself. Chemical sedation was initiated as well. I did speak with case management, I spoke with the patient about my findings, I spoke with the on-call hospitalist, Dr. Carey. I spoke with the medical provider covering for the ICU. The patient is being admitted to the intensive care unit. He is in DKA, he is quite dehydrated. Intensive inpatient care is clearly warranted. DISPOSITION: Patient's presentation and findings warrant a hospital stay. Past Med/Surg History Medical History Diabetic peripheral neuropathy DKA (diabetic ketoacidosis) Encounter for examination following treatment at hospital GERD (gastroesophageal reflux disease) MDD (major depressive disorder), recurrent episode, moderate Type I diabetes mellitus Surgical History No significant past surgical history Family History Other Diabetes Social History Smoking Status: Current every day smoker Tobacco Type: Cigarettes Cigarettes Per Day: 1 pack; Second Hand Exposure: No; Do You Dip or Chew Tobacco: No; Hx Alcohol Use: No Hx Substance Use: No Preferred Language: Faroese Communication Ability: Effective Visual Impairment: Limited Hearing Ability: Normal 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 Beliefs That Will Affect Care: None marital status: Single Current Living Situation: Significant Other Current Living Situation Comment: Lives with girlfreind current occupational status: disabled How many Children do You have: 0 Feels Safe at Home: Yes Childhood Exposure to Second-Hand Smoke: No Diet: diabetic and regular caffeine: Yes during the past year weight has: remained stable Dental Care, Regularly: Yes Physical Activity Frequency: Daily Seatbelt Use: always Sunscreen Use: No Do you think of yourself as: straight/heterosexual Sexual Activity: has been sexually active within the last 12 months Gender Identity: Male Assistive Devices: None Allergies Allergies Allergy/AdvReac Type Severity Reaction Status Date / Time codeine Allergy Intermediate Rash Verified 10/04/22 21:03 erythromycin base Allergy Unknown HAPPENED Verified 10/04/22 21:03 A SMALL CHILD Home Meds Home Medications Medication Instructions Recorded Confirmed acetaminophen 500 mg tablet 1,000 mg PO Q8 PRN Pain 08/19/22 10/04/22 (Tylenol Extra Strength) ondansetron HCl 4 mg tablet 4 mg PO TID PRN NAUSEA/VOMITING 10/04/22 10/04/22 Previous Rx's Medication Instructions Recorded insulin syringe-needle U-100 0.3 #100 ea 07/31/21 mL 31 gauge x 15/64" albuterol sulfate 90 mcg/actuation 2 puff inhalation Q6H PRN 06/07/22 aerosol inhaler shortness of breath or wheezing #8.5 grams gabapentin 100 mg capsule 100 mg PO TID PRN pain #90 caps 08/19/22 blood sugar diagnostic (OneTouch #100 ea 08/22/22 Verio test strips) blood-glucose meter (OneTouch #1 ea 08/22/22 Verio Reflect Meter) lancets 33 gauge (OneTouch Delica #100 ea 08/22/22 Lancets) insulin glargine 100 unit/mL (3 15 unit (0.15 mL) subcut QAM #15 mL 08/25/22 mL) subcutaneous pen (Lantus Solostar U-100 Insulin) insulin lispro 100 unit/mL 20 unit (0.2 mL) subcut TID #15 mL 08/29/22 subcutaneous pen (Humalog KwikPen (U-100) Insulin) oxycodone 5 mg tablet 5 mg PO Q6H PRN pain #20 tabs 10/01/22 Results & Data (ED) Vital Signs Vital Signs - 24 hr 10/04/22 19:23 10/04/22 20:09 10/04/22 20:10 Temperature 36.7 C Temperature Source Temporal Artery Scan Pulse Rate 155 H 143 H 143 H Respiratory Rate 17 23 Respiratory Effort / Characteristics Non-Labored Spontaneous Respiratory Depth Normal Blood Pressure 95/62 L Blood Pressure Mean 73 Blood Pressure Position Sitting Pulse Oximetry 100 99 Oxygen Delivery Method Room Air Room Air Sepsis Recent Fever Within 48 Hours No Sepsis New/Unexplained Change in Mental Status No Sepsis Action Taken by Nursing Physician Notified 10/04/22 20:20 10/04/22 20:30 10/04/22 20:40 Temperature Temperature Source Pulse Rate 151 H 143 H 149 H Respiratory Rate 27 H 25 H 25 H Respiratory Effort / Characteristics Respiratory Depth Blood Pressure Blood Pressure Mean Blood Pressure Position Pulse Oximetry 99 99 100 Oxygen Delivery Method Room Air Room Air Room Air Sepsis Recent Fever Within 48 Hours Sepsis New/Unexplained Change in Mental Status Sepsis Action Taken by Nursing 10/04/22 20:49 10/04/22 20:50 10/04/22 21:02 Temperature Temperature Source Pulse Rate 152 H 155 H 152 H Respiratory Rate 27 H 25 H 28 H Respiratory Effort / Characteristics Respiratory Depth Blood Pressure 116/63 121/73 Blood Pressure Mean 80 89 Blood Pressure Position Pulse Oximetry 100 100 99 Oxygen Delivery Method Room Air Room Air Room Air Sepsis Recent Fever Within 48 Hours Sepsis New/Unexplained Change in Mental Status Sepsis Action Taken by Nursing 10/04/22 21:10 10/04/22 21:38 10/04/22 22:00 Temperature Temperature Source Pulse Rate 145 H 147 H 143 H Respiratory Rate 34 H 35 H 27 H Respiratory Effort / Characteristics Respiratory Depth Blood Pressure 123/72 Blood Pressure Mean 89 Blood Pressure Position Pulse Oximetry 100 100 100 Oxygen Delivery Method Room Air Room Air Room Air Sepsis Recent Fever Within 48 Hours Sepsis New/Unexplained Change in Mental Status Sepsis Action Taken by Nursing 10/04/22 22:10 Temperature Temperature Source Pulse Rate 146 H Respiratory Rate 31 H Respiratory Effort / Characteristics Respiratory Depth Blood Pressure Blood Pressure Mean Blood Pressure Position Pulse Oximetry 97 Oxygen Delivery Method Room Air Sepsis Recent Fever Within 48 Hours Sepsis New/Unexplained Change in Mental Status Sepsis Action Taken by Residential Medications Current Medication List: was personally reviewed by me Laboratory Data Attestation: I reviewed the patient's lab results. 10/04/22 20:44 10/05/22 01:03 Lab Results 10/04/22 10/04/22 10/04/22 Range/Units 19:27 20:10 20:13 WBC (4.8-10.8) K/ul RBC (4.70-6.10) M/uL Hgb (14.0-18.0) g/dl Hct (42.0-52.0) % MCV (80.0-100.0) fL MCH (25.0-34.0) pg MCHC (32.0-36.0) g/dL RDW Std Deviation (36.4-46.3) fL RDW Coeff of Margarita (11.5-14.5) % Plt Count (130-400) K/uL MPV (9.4-12.4) fL Immature Gran % (Auto) % Neut % (Auto) % Lymph % (Auto) % [place] % (Auto) % Eos % (Auto) % Baso % (Auto) % Neut # (Auto) (1.40-6.50) K/uL Lymph # (Auto) (1.2-3.4) K/uL [place] # (Auto) (0.11-0.59) K/uL Eos # (Auto) (0-0.50) K/uL Baso # (Auto) (0-0.2) K/uL Immature Gran # (Auto) (0.01-0.20) K/uL PT (9.0-12.0) Seconds INR (0.9-1.1) APTT (21.0-31.0) Seconds PTT Ratio ABG pH (7.35-7.45) ABG pCO2 (35-46) mmHg ABG pO2 (80-95) mmHg ABG HCO3 (19-24) mmol/L ABG O2 Saturation (90-95) % ABG Base Excess (-9-1.8) mEq/L Demond Test (Pos) Oxygen Given Sodium (136-145) mmol/L Potassium (3.5-5.1) mmol/L Chloride (98-107) mmol/L Carbon Dioxide (21-32) mmol/L Anion Gap (3-11) BUN (6-23) mg/dl Creatinine (0.6-1.4) mg/dl Est Cr Clr Drug Dosing ml/min Est GFR ( Amer) ml/min Est GFR (Non-Af Amer) ml/min BUN/Creatinine Ratio (10-20) Glucose (70-99(Fasting)) mg/dl POC Glucose > 600 H* 548 H* (70-99) mg/dl Lactate (0.4-2.0) mmol/L Calcium (8.6-10.3) mg/dl Phosphorus (2.5-4.9) mg/dl Magnesium (1.7-2.4) mg/dl Total Bilirubin (0.2-1.0) mg/dl Direct Bilirubin (0-0.2) mg/dl AST (13-39) U/L ALT (7-52) U/L Alkaline Phosphatase (34-104) U/L Troponin I High Sens (0-20) pg/ml Total Protein (6.0-8.3) gm/dl Albumin (3.4-5.0) gm/dl Lipase (11-82) U/L Procalcitonin (0-0.5) ng/ml Urine Color Urine Appearance (Clear) Urine pH (4.5-7.5) Ur Specific [place] (1.000-1.030) Urine Protein (Negative) Urine Glucose (UA) (Negative) Urine Ketones (Negative) Urine Blood (Negative) Urine Nitrite (Negative) Urine Bilirubin (Negative) Urine Urobilinogen (Negative) Ur Leukocyte Esterase (Negative) Urine Osmolality (500-800) mOsm/kg Urine Opiates Screen (Neg) Ur Methadone, Qual (Neg) Urine Barbiturates (Neg) Ur Phencyclidine (PCP) (Neg) U Amphetamin/Meth Scrn (Neg) MDMA (Ecstasy) Screen (Neg) U Benzodiazepines Scrn (Neg) Ur Cocaine Metabolite (Neg) U Marijuana (THC) Screen (Neg) SARS-CoV-2, RNA, NAAT NEGATIVE (NEGATIVE) 10/04/22 10/04/22 10/04/22 Range/Units 20:44 20:44 20:44 WBC 10.92 H (4.8-10.8) K/ul RBC 3.51 L (4.70-6.10) M/uL Hgb 11.9 L (14.0-18.0) g/dl Hct 38.4 L (42.0-52.0) % MCV 109.4 H (80.0-100.0) fL MCH 33.9 (25.0-34.0) pg MCHC 31.0 L (32.0-36.0) g/dL RDW Std Deviation 56.5 H (36.4-46.3) fL RDW Coeff of Margarita 14.0 (11.5-14.5) % Plt Count 388 (130-400) K/uL MPV 9.4 (9.4-12.4) fL Immature Gran % (Auto) 1.2 % Neut % (Auto) 84.3 % Lymph % (Auto) 8.3 % [place] % (Auto) 5.5 % Eos % (Auto) 0.2 % Baso % (Auto) 0.5 % Neut # (Auto) 9.20 H (1.40-6.50) K/uL Lymph # (Auto) 0.91 L (1.2-3.4) K/uL [place] # (Auto) 0.60 H (0.11-0.59) K/uL Eos # (Auto) 0.02 (0-0.50) K/uL Baso # (Auto) 0.06 (0-0.2) K/uL Immature Gran # (Auto) 0.13 (0.01-0.20) K/uL PT 10.2 (9.0-12.0) Seconds INR 0.9 (0.9-1.1) APTT 22.2 (21.0-31.0) Seconds PTT Ratio 0.8 ABG pH (7.35-7.45) ABG pCO2 (35-46) mmHg ABG pO2 (80-95) mmHg ABG HCO3 (19-24) mmol/L ABG O2 Saturation (90-95) % ABG Base Excess (-9-1.8) mEq/L Demond Test (Pos) Oxygen Given Sodium 131 L (136-145) mmol/L Potassium 5.4 H (3.5-5.1) mmol/L Chloride 89 L (98-107) mmol/L Carbon Dioxide 5 L* (21-32) mmol/L Anion Gap 37 H (3-11) BUN 21 (6-23) mg/dl Creatinine 1.27 (0.6-1.4) mg/dl Est Cr Clr Drug Dosing 69.1 ml/min Est GFR ( Amer) 81.9 ml/min Est GFR (Non-Af Amer) 70.7 ml/min BUN/Creatinine Ratio 16.5 (10-20) Glucose 666 H* (70-99(Fasting)) mg/dl POC Glucose (70-99) mg/dl Lactate (0.4-2.0) mmol/L Calcium 8.8 (8.6-10.3) mg/dl Phosphorus 5.4 H (2.5-4.9) mg/dl Magnesium 2.3 (1.7-2.4) mg/dl Total Bilirubin 0.6 (0.2-1.0) mg/dl Direct Bilirubin 0.1 (0-0.2) mg/dl AST 20 (13-39) U/L ALT 35 (7-52) U/L Alkaline Phosphatase 152 H (34-104) U/L Troponin I High Sens 79.6 H* (0-20) pg/ml Total Protein 6.4 (6.0-8.3) gm/dl Albumin 3.5 (3.4-5.0) gm/dl Lipase 10 L (11-82) U/L Procalcitonin (0-0.5) ng/ml Urine Color Urine Appearance (Clear) Urine pH (4.5-7.5) Ur Specific [place] (1.000-1.030) Urine Protein (Negative) Urine Glucose (UA) (Negative) Urine Ketones (Negative) Urine Blood (Negative) Urine Nitrite (Negative) Urine Bilirubin (Negative) Urine Urobilinogen (Negative) Ur Leukocyte Esterase (Negative) Urine Osmolality (500-800) mOsm/kg Urine Opiates Screen (Neg) Ur Methadone, Qual (Neg) Urine Barbiturates (Neg) Ur Phencyclidine (PCP) (Neg) U Amphetamin/Meth Scrn (Neg) MDMA (Ecstasy) Screen (Neg) U Benzodiazepines Scrn (Neg) Ur Cocaine Metabolite (Neg) U Marijuana (THC) Screen (Neg) SARS-CoV-2, RNA, NAAT (NEGATIVE) 10/04/22 10/04/22 10/04/22 Range/Units 20:44 20:44 20:56 WBC (4.8-10.8) K/ul RBC (4.70-6.10) M/uL Hgb (14.0-18.0) g/dl Hct (42.0-52.0) % MCV (80.0-100.0) fL MCH (25.0-34.0) pg MCHC (32.0-36.0) g/dL RDW Std Deviation (36.4-46.3) fL RDW Coeff of Margarita (11.5-14.5) % Plt Count (130-400) K/uL MPV (9.4-12.4) fL Immature Gran % (Auto) % Neut % (Auto) % Lymph % (Auto) % [place] % (Auto) % Eos % (Auto) % Baso % (Auto) % Neut # (Auto) (1.40-6.50) K/uL Lymph # (Auto) (1.2-3.4) K/uL [place] # (Auto) (0.11-0.59) K/uL Eos # (Auto) (0-0.50) K/uL Baso # (Auto) (0-0.2) K/uL Immature Gran # (Auto) (0.01-0.20) K/uL PT (9.0-12.0) Seconds INR (0.9-1.1) APTT (21.0-31.0) Seconds PTT Ratio ABG pH (7.35-7.45) ABG pCO2 (35-46) mmHg ABG pO2 (80-95) mmHg ABG HCO3 (19-24) mmol/L ABG O2 Saturation (90-95) % ABG Base Excess (-9-1.8) mEq/L Demond Test (Pos) Oxygen Given Sodium (136-145) mmol/L Potassium (3.5-5.1) mmol/L Chloride (98-107) mmol/L Carbon Dioxide (21-32) mmol/L Anion Gap (3-11) BUN (6-23) mg/dl Creatinine (0.6-1.4) mg/dl Est Cr Clr Drug Dosing ml/min Est GFR ( Amer) ml/min Est GFR (Non-Af Amer) ml/min BUN/Creatinine Ratio (10-20) Glucose (70-99(Fasting)) mg/dl POC Glucose (70-99) mg/dl Lactate 3.5 H* (0.4-2.0) mmol/L Calcium (8.6-10.3) mg/dl Phosphorus (2.5-4.9) mg/dl Magnesium (1.7-2.4) mg/dl Total Bilirubin (0.2-1.0) mg/dl Direct Bilirubin (0-0.2) mg/dl AST (13-39) U/L ALT (7-52) U/L Alkaline Phosphatase (34-104) U/L Troponin I High Sens (0-20) pg/ml Total Protein (6.0-8.3) gm/dl Albumin (3.4-5.0) gm/dl Lipase (11-82) U/L Procalcitonin 1.26 H (0-0.5) ng/ml Urine Color Yellow Urine Appearance Clear (Clear) Urine pH 5.0 (4.5-7.5) Ur Specific [place] 1.022 (1.000-1.030) Urine Protein Negative (Negative) Urine Glucose (UA) 3+ H (Negative) Urine Ketones 4+ H (Negative) Urine Blood Negative (Negative) Urine Nitrite Negative (Negative) Urine Bilirubin Negative (Negative) Urine Urobilinogen Negative (Negative) Ur Leukocyte Esterase Negative (Negative) Urine Osmolality (500-800) mOsm/kg Urine Opiates Screen (Neg) Ur Methadone, Qual (Neg) Urine Barbiturates (Neg) Ur Phencyclidine (PCP) (Neg) U Amphetamin/Meth Scrn (Neg) MDMA (Ecstasy) Screen (Neg) U Benzodiazepines Scrn (Neg) Ur Cocaine Metabolite (Neg) U Marijuana (THC) Screen (Neg) SARS-CoV-2, RNA, NAAT (NEGATIVE) 10/04/22 10/04/22 10/04/22 Range/Units 20:56 20:56 21:05 WBC (4.8-10.8) K/ul RBC (4.70-6.10) M/uL Hgb (14.0-18.0) g/dl Hct (42.0-52.0) % MCV (80.0-100.0) fL MCH (25.0-34.0) pg MCHC (32.0-36.0) g/dL RDW Std Deviation (36.4-46.3) fL RDW Coeff of Margarita (11.5-14.5) % Plt Count (130-400) K/uL MPV (9.4-12.4) fL Immature Gran % (Auto) % Neut % (Auto) % Lymph % (Auto) % [place] % (Auto) % Eos % (Auto) % Baso % (Auto) % Neut # (Auto) (1.40-6.50) K/uL Lymph # (Auto) (1.2-3.4) K/uL [place] # (Auto) (0.11-0.59) K/uL Eos # (Auto) (0-0.50) K/uL Baso # (Auto) (0-0.2) K/uL Immature Gran # (Auto) (0.01-0.20) K/uL PT (9.0-12.0) Seconds INR (0.9-1.1) APTT (21.0-31.0) Seconds PTT Ratio ABG pH (7.35-7.45) ABG pCO2 (35-46) mmHg ABG pO2 (80-95) mmHg ABG HCO3 (19-24) mmol/L ABG O2 Saturation (90-95) % ABG Base Excess (-9-1.8) mEq/L Demond Test (Pos) Oxygen Given Sodium (136-145) mmol/L Potassium (3.5-5.1) mmol/L Chloride (98-107) mmol/L Carbon Dioxide (21-32) mmol/L Anion Gap (3-11) BUN (6-23) mg/dl Creatinine (0.6-1.4) mg/dl Est Cr Clr Drug Dosing ml/min Est GFR ( Amer) ml/min Est GFR (Non-Af Amer) ml/min BUN/Creatinine Ratio (10-20) Glucose (70-99(Fasting)) mg/dl POC Glucose > 600 H* (70-99) mg/dl Lactate (0.4-2.0) mmol/L Calcium (8.6-10.3) mg/dl Phosphorus (2.5-4.9) mg/dl Magnesium (1.7-2.4) mg/dl Total Bilirubin (0.2-1.0) mg/dl Direct Bilirubin (0-0.2) mg/dl AST (13-39) U/L ALT (7-52) U/L Alkaline Phosphatase (34-104) U/L Troponin I High Sens (0-20) pg/ml Total Protein (6.0-8.3) gm/dl Albumin (3.4-5.0) gm/dl Lipase (11-82) U/L Procalcitonin (0-0.5) ng/ml Urine Color Urine Appearance (Clear) Urine pH (4.5-7.5) Ur Specific [place] (1.000-1.030) Urine Protein (Negative) Urine Glucose (UA) (Negative) Urine Ketones (Negative) Urine Blood (Negative) Urine Nitrite (Negative) Urine Bilirubin (Negative) Urine Urobilinogen (Negative) Ur Leukocyte Esterase (Negative) Urine Osmolality 482 L (500-800) mOsm/kg Urine Opiates Screen Neg (Neg) Ur Methadone, Qual Neg (Neg) Urine Barbiturates Neg (Neg) Ur Phencyclidine (PCP) Neg (Neg) U Amphetamin/Meth Scrn Neg (Neg) MDMA (Ecstasy) Screen Neg (Neg) U Benzodiazepines Scrn Neg (Neg) Ur Cocaine Metabolite Neg (Neg) U Marijuana (THC) Screen Neg (Neg) SARS-CoV-2, RNA, NAAT (NEGATIVE) 10/04/22 Range/Units 21:06 WBC (4.8-10.8) K/ul RBC (4.70-6.10) M/uL Hgb (14.0-18.0) g/dl Hct (42.0-52.0) % MCV (80.0-100.0) fL MCH (25.0-34.0) pg MCHC (32.0-36.0) g/dL RDW Std Deviation (36.4-46.3) fL RDW Coeff of Margarita (11.5-14.5) % Plt Count (130-400) K/uL MPV (9.4-12.4) fL Immature Gran % (Auto) % Neut % (Auto) % Lymph % (Auto) % [place] % (Auto) % Eos % (Auto) % Baso % (Auto) % Neut # (Auto) (1.40-6.50) K/uL Lymph # (Auto) (1.2-3.4) K/uL [place] # (Auto) (0.11-0.59) K/uL Eos # (Auto) (0-0.50) K/uL Baso # (Auto) (0-0.2) K/uL Immature Gran # (Auto) (0.01-0.20) K/uL PT (9.0-12.0) Seconds INR (0.9-1.1) APTT (21.0-31.0) Seconds PTT Ratio ABG pH 7.07 L* (7.35-7.45) ABG pCO2 9 L (35-46) mmHg ABG pO2 140 H (80-95) mmHg ABG HCO3 3 L (19-24) mmol/L ABG O2 Saturation 99.3 H (90-95) % ABG Base Excess -25.2 L (-9-1.8) mEq/L Demond Test POS (Pos) Oxygen Given ROOM AIR Sodium (136-145) mmol/L Potassium (3.5-5.1) mmol/L Chloride (98-107) mmol/L Carbon Dioxide (21-32) mmol/L Anion Gap (3-11) BUN (6-23) mg/dl Creatinine (0.6-1.4) mg/dl Est Cr Clr Drug Dosing ml/min Est GFR ( Amer) ml/min Est GFR (Non-Af Amer) ml/min BUN/Creatinine Ratio (10-20) Glucose (70-99(Fasting)) mg/dl POC Glucose (70-99) mg/dl Lactate (0.4-2.0) mmol/L Calcium (8.6-10.3) mg/dl Phosphorus (2.5-4.9) mg/dl Magnesium (1.7-2.4) mg/dl Total Bilirubin (0.2-1.0) mg/dl Direct Bilirubin (0-0.2) mg/dl AST (13-39) U/L ALT (7-52) U/L Alkaline Phosphatase (34-104) U/L Troponin I High Sens (0-20) pg/ml Total Protein (6.0-8.3) gm/dl Albumin (3.4-5.0) gm/dl Lipase (11-82) U/L Procalcitonin (0-0.5) ng/ml Urine Color Urine Appearance (Clear) Urine pH (4.5-7.5) Ur Specific [place] (1.000-1.030) Urine Protein (Negative) Urine Glucose (UA) (Negative) Urine Ketones (Negative) Urine Blood (Negative) Urine Nitrite (Negative) Urine Bilirubin (Negative) Urine Urobilinogen (Negative) Ur Leukocyte Esterase (Negative) Urine Osmolality (500-800) mOsm/kg Urine Opiates Screen (Neg) Ur Methadone, Qual (Neg) Urine Barbiturates (Neg) Ur Phencyclidine (PCP) (Neg) U Amphetamin/Meth Scrn (Neg) MDMA (Ecstasy) Screen (Neg) U Benzodiazepines Scrn (Neg) Ur Cocaine Metabolite (Neg) U Marijuana (THC) Screen (Neg) SARS-CoV-2, RNA, NAAT (NEGATIVE) Administered Medications Insulin Human Regular 250 (units/ Sodium Chloride) 250 mls @ 6 mls/hr IV .Q24H PENDING SALE TO [facility]; Protocol Stop: 11/03/22 21:44 Last Titration: 10/05/22 00:57 Dose: 6 units/hr, 6 mls/hr Documented By: FAYE Co-signed By: ANGELIQUE Admin: 10/04/22 23:07 Dose: 6 units/hr, 6 mls/hr Documented By: CHINA Co-signed By: Lactated Ringer's (Lr) 1,000 mls @ 125 mls/hr IV .Q8H RISSA Stop: 11/04/22 01:29 Last Admin: 10/05/22 00:47 Dose: 125 mls/hr Documented By: FAYE Potassium Chloride (K Matthew / Wtr) 20 meq in 100 mls @ 50 mls/hr IV Q2H RISSA Stop: 10/05/22 05:14 Last Admin: 10/05/22 01:10 Dose: 50 mls/hr Documented By: FAYE Discontinued Medications Haloperidol Lactate (Haloperidol Lactate 5 Mg/Ml 1 Ml Vial) Confirm Administered Dose 5 mg .ROUTE .STK-MED ONE Stop: 10/04/22 21:54 Last Admin: 10/04/22 21:56 Dose: Not Given Documented By: CHINA Haloperidol Lactate (Haloperidol Lactate 5 Mg/Ml 1 Ml Vial) 5 mg IM NOW STA Stop: 10/04/22 21:56 Last Admin: 10/04/22 21:56 Dose: 5 mg Documented By: [place] Haloperidol Lactate (Haloperidol Lactate 5 Mg/Ml 1 Ml Vial) 2.5 mg IV NOW STA Stop: 10/04/22 22:39 Last Admin: 10/04/22 22:45 Dose: 2.5 mg Documented By: [place] Cefepime HCl (Maxipime) 2,000 mg in 20 mls @ 5 mls/min IV NOW STA; Protocol Stop: 10/04/22 20:03 Last Admin: 10/04/22 20:54 Dose: 5 mls/min Documented By: [place]INA Sodium Chloride (Nss 1000ml) 2,000 mls @ 999 mls/hr IV .Q2H1M ONE Stop: 10/04/22 22:00 Last Infusion: 10/05/22 00:48 Dose: 0 mls/hr Documented By: Admin: 10/04/22 20:54 Dose: 999 mls/hr Documented By: [place] Lactated Ringer's (Lr) 1,000 mls @ 999 mls/hr IV .Q1H1M ONE Stop: 10/05/22 01:16 Last Admin: 10/05/22 00:28 Dose: 999 mls/hr Documented By: FAYE Insulin Human Regular (Novolin-R Bolus From Bag) 6 units IV ONE ONE Stop: 10/04/22 22:01 Last Admin: 10/04/22 23:08 Dose: 6 units Documented By: MARLEY Co-signed By: Lidocaine HCl (Lidocaine 1% Local 20 Ml Vial) Confirm Administered Dose 4 ml .ROUTE .STK-MED ONE Stop: 10/04/22 22:53 Last Admin: 10/04/22 23:02 Dose: 4 ml Documented By: HAWK Lorazepam (Lorazepam 2 Mg/1 Ml Vial) 0.5 mg IV NOW STA Stop: 10/04/22 21:04 Last Admin: 10/04/22 21:08 Dose: 0.5 mg Documented By: Lorazepam (Lorazepam 2 Mg/1 Ml Vial) 1 mg IV NOW STA Stop: 10/04/22 21:45 Last Admin: 10/04/22 22:38 Dose: 1 mg Documented By: [place] Ondansetron HCl (Ondansetron Inj 2 Mg/Ml 2 Ml Vial) 4 mg IV NOW STA Stop: 10/04/22 21:04 Last Admin: 10/04/22 21:08 Dose: 4 mg Documented By: Sodium Bicarbonate (Sodium Bicarb 8.4% Inj 50 Meq/50 Ml Syr) 50 meq IV NOW STA Stop: 10/04/22 22:39 Last Admin: 10/04/22 22:45 Dose: 50 meq Documented By: MARLEY Imaging Data My Impression: Chest x-ray: Per my review, there is no pneumonia or CHF Discharge Plan Visit Data Chief Complaint: Illness ED Provider: Lex oTro Discharge Problem: Altered mental status, DKA (diabetic ketoacidosis), Acute dehydration, Elevated lactic acid level, Tachycardia, Tachypnea Patient Disposition: Admitted As Inpatient Condition: Serious Discharge Instructions Interventions: ED Discharge Assessment Last Done: 10/05/22 00:08
[2022-10-04] MEDS ORDERED: ONDANSETRON INJ 2 MG/ML 2 ML VIAL IV STA (21:03)
[2022-10-04] MEDS ORDERED: LORazepam 2 MG/1 ML VIAL IV STA ×2 (21:03→21:44)
[2022-10-04 21:21] LABS: Base Excess ABG -25.2 mEq/L (-9-1.8); HCO3 ABG 3 mmol/L (19-24); Oxygen Saturation ABG 99.3 % (90-95); PCO2 ABG 9 mmHg (35-46); PO2 ABG 140 mmHg (80-95)
[2022-10-04 21:21] LABS: Appearance Urine Clear (Clear); Bilirubin Urine Negative (Negative); Blood Urine Negative (Negative); Color Urine Yellow; Glucose Urine UA 3+ (Negative); Ketones Urine 4+ (Negative); Leukocyte Esterase Urine Negative (Negative); Nitrite Urine Negative (Negative); Protein Urine Negative (Negative); Specific Gravity Urine 1.022 (1.000-1.030); Urobilinogen Urine Negative (Negative)
[2022-10-04 21:24] LABS: Allen Test POS (Pos)
[2022-10-04 21:27] LABS: pH ABG 7.07 (7.35-7.45)
[2022-10-04 21:33] LABS: Albumin Level 3.5 gm/dl (3.4-5.0); BUN Creatinine Ratio 16.5 (10-20); Bilirubin Direct 0.1 mg/dl (0-0.2); Bilirubin,Total 0.6 mg/dl (0.2-1.0); Calcium 8.8 mg/dl (8.6-10.3); Creatinine Clr Calc Pharmacy 69.1 ml/min; Est GFR (African American) 81.9 ml/min; Est GFR (Non-African American) 70.7 ml/min; Magnesium 2.3 mg/dl (1.7-2.4); Potassium 5.4 mmol/L (3.5-5.1); Total Protein 6.4 gm/dl (6.0-8.3); Troponin I High Sensitivity 79.6 pg/ml (0-20)
[2022-10-04 21:40] LABS: INR 0.9 (0.9-1.1); Partial Thromboplastin Ratio 0.8; Partial Thromboplastin Time 22.2 Seconds (21.0-31.0); Prothrombin Time 10.2 Seconds (9.0-12.0)
[2022-10-04 21:41] LABS: Basophils # (auto) 0.06 K/uL (0-0.2); Basophils % (auto) 0.5 %; Eosinophils # (auto) 0.02 K/uL (0-0.50); Eosinophils % (auto) 0.2 %; Hematocrit (blood only) 38.4 % (42.0-52.0); Hemoglobin 11.9 g/dl (14.0-18.0); Immature Granulocytes # (auto) 0.13 K/uL (0.01-0.20); Immature Granulocytes % (auto) 1.2 %; Lymphocytes # (auto) 0.91 K/uL (1.2-3.4); Lymphocytes % (auto) 8.3 %; Mean Corpuscular Hemoglobin 33.9 pg (25.0-34.0); Mean Corpuscular Volume 109.4 fL (80.0-100.0); Mean Platelet Volume 9.4 fL (9.4-12.4); Monocytes % (auto) 5.5 %; Neutrophils % (auto) 84.3 %; Platelet Count 388 K/uL (130-400); RDW Standard Deviation 56.5 fL (36.4-46.3); Red Blood Count 3.51 M/uL (4.70-6.10); White Blood Count 10.92 K/ul (4.8-10.8)
[2022-10-04] MEDS ORDERED: DKA GOAL RANGE 150-250 mg/dl ONE (21:44)
[2022-10-04] MEDS ORDERED: CARBOHYDRATES FOR HYPOGLYCEMIA PO PRN (21:44)
[2022-10-04] MEDS ORDERED: STAT INSULIN DRIP STA (21:44)
[2022-10-04] MEDS ORDERED: GLUCAGON FOR INJ 1 MG VIAL SQ PRN (21:44)
[2022-10-04] MEDS ORDERED: GLUCOSE 40% GEL 15 GM TUBE PO PRN (21:44)
[2022-10-04] MEDS ORDERED: GLUCOSE 10 TAB/TUBE PO PRN (21:44)
[2022-10-04] MEDS ORDERED: DEXTROSE 50% 50 ML SYRINGE IV PRN (21:44)
[2022-10-04] MEDS ORDERED: HALOPERIDOL LACTATE 5 MG/ML 1 ML VIAL ONE (21:53)
[2022-10-04] MEDS ORDERED: HALOPERIDOL LACTATE 5 MG/ML 1 ML VIAL IM STA (21:55)
[2022-10-04] MEDS ORDERED: NovoLIN-R BOLUS FROM BAG IV ONE (22:00)
--- NOTE | 2022-10-04 22:18 | History & Physical Report ---
Date of Service October 04, 2022 Assessment & Plan (1) DKA (diabetic ketoacidosis): Plan: 37yo male with DM-I presenting with severe DKA. Patient encephalopathic on exam, tachycardic and tachypneic. Labs as above with anion gap metabolic acidosis - BHZ=185, pH on ABG=7.07, HCO3=5, Anion gap=37, Lactate also elevated at 3.5. Overall poorly controlled DM - last LowY9C=85.3. Patient had his first visit with [facility] on 08/19/22. Some difficulty with line placement in the ER as patient agitated - removed his PIV. Now with left tibial IO in place. Receiving IVF and insulin gtt -Admit to MICU -LR x 1L bolus then 125mL/hr -Insulin gtt per DKA protocol -Serial labs - BMP, CBC, Mg, PO4 and VBG q 4 hours -Awaiting UTox, Urine and serum Osmolality -Repeat troponin -Empiric Ceftriaxone -Morphine PRN -Zofran PRN -Tylenol PRN (2) Closed fracture of neck of right humerus: Plan: Patient had a sling in place which he removed. Bruising of the RUE -Repeat X-ray right humerus -Place sling -Morphine PRN History of Present Illness Chief Complaint: Dka Primary Care Provider: Carolyn Story MD Laron Horton is a 37yo male with history of Type I DM, GERD and MDD presenting with DKA. Patient is somewhat altered - is not answering questions reliably. History obtained primarily through chart review and discussion with ER staff. Patient was seen in the ER on 09/10/22 with complaint of lethargy. He was found to have mild leukocytosis with WBC=11.36, Na of 131, BUN of 34 and Cr of 1.42 from normal baseline of 18 and 0.8, respectively. He was treated with NSS x 2L and Cefepime 2gm IV and discharged home. He was seen in the ER again on 09/20/22 with complaint of leg swelling, left toe pain and vomiting. He reports recently breaking his right foot and not wearing his boot. Found with mildly elevated Lipase of 148. He was treated with NSS x 1L, Zofran and Toradol. He was seen again in the ER on 10/01/22 after falling getting out of the shower. He was found to have a right humeral neck fracture. He was given Oxy-IR and discharged home. Patient returns today feeling ill, weak and thirsty. His blood sugars have been high. He denies pain. No additional complaints at this time although history is limited. Labs as below suggestive of severe DKA. Patient agitated in the ER - pulled his IV out. Patient placed in 4 limb restraints. Left tibial IO placed ER Course: IO placement Cefepime NSS - running Ativan 1mg + 0.5mg Haldol 5mg + 2.5 mg Insulin 6u IV with gtt Allergies Allergy/AdvReac Type Severity Reaction Status Date / Time codeine Allergy Intermediate Rash Verified 10/04/22 21:03 erythromycin base Allergy Unknown HAPPENED Verified 10/04/22 21:03 A SMALL CHILD Home Medications Medication Instructions Recorded Confirmed Type insulin syringe-needle U-100 0.3 #100 ea 07/31/21 09/20/22 Rx mL 31 gauge x 15/64" albuterol sulfate 90 mcg/actuation 2 puff inhalation Q6H PRN 06/07/22 10/04/22 Rx aerosol inhaler shortness of breath or wheezing #8.5 grams acetaminophen 500 mg tablet 1,000 mg PO Q8 PRN Pain 08/19/22 10/04/22 History (Tylenol Extra Strength) gabapentin 100 mg capsule 100 mg PO TID PRN pain #90 caps 08/19/22 10/04/22 Rx blood sugar diagnostic (OneTouch #100 ea 08/22/22 09/20/22 Rx Verio test strips) blood-glucose meter (OneTouch #1 ea 08/22/22 09/20/22 Rx Verio Reflect Meter) lancets 33 gauge (OneTouch Delica #100 ea 08/22/22 09/20/22 Rx Lancets) insulin glargine 100 unit/mL (3 15 unit (0.15 mL) subcut QAM #15 mL 08/25/22 10/04/22 Rx mL) subcutaneous pen (Lantus Solostar U-100 Insulin) insulin lispro 100 unit/mL 20 unit (0.2 mL) subcut TID #15 mL 08/29/22 10/04/22 Rx subcutaneous pen (Humalog KwikPen (U-100) Insulin) oxycodone 5 mg tablet 5 mg PO Q6H PRN pain #20 tabs 10/01/22 10/04/22 Rx ondansetron HCl 4 mg tablet 4 mg PO TID PRN NAUSEA/VOMITING 10/04/22 10/04/22 History Past Med/Surg History Medical History Diabetic peripheral neuropathy DKA (diabetic ketoacidosis) Encounter for examination following treatment at hospital GERD (gastroesophageal reflux disease) MDD (major depressive disorder), recurrent episode, moderate Type I diabetes mellitus Surgical History No significant past surgical history Family History Other Diabetes Social History Smoking Status: Current every day smoker Tobacco Type: Cigarettes Cigarettes Per Day: 1 pack; Second Hand Exposure: No; Do You Dip or Chew Tobacco: No; Hx Alcohol Use: No Hx Substance Use: No Preferred Language: Chinese Communication Ability: Effective Visual Impairment: Limited Hearing Ability: Normal 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 Beliefs That Will Affect Care: None marital status: Single Current Living Situation: Other Current Living Situation Comment: homeless current occupational status: disabled How many Children do You have: 0 Feels Safe at Home: Yes Childhood Exposure to Second-Hand Smoke: No Diet: diabetic and regular caffeine: Yes during the past year weight has: remained stable Dental Care, Regularly: Yes Physical Activity Frequency: Daily Seatbelt Use: always Sunscreen Use: No Do you think of yourself as: straight/heterosexual Sexual Activity: has been sexually active within the last 12 months Gender Identity: Male Assistive Devices: None Review of Systems Review of Systems: All systems reviewed & are unremarkable except as noted in HPI & below Physical Exam Physical Exam: General: patient ill in appearance, encephalopathic, not answering questions or following commands Skin: warm, dry, intact, no rashes or lesions HEENT: NC/AT, PERRL, anicteric sclera, conjunctiva without injection, external ear normal to inspection and nontender, nares patent, DRY mucus membranes, poor dentition, no oropharyngeal lesions, neck supple, trachea midline, no LAD, no thyromegaly, no JVD Heart: +S1/S2, regular, tachycardic, no m/r/g Lungs: equal air entry bilaterally, [place] respirations appx 25-35 breaths/minute Abd: diminished bowel sounds, soft, non-distended Ext: cool, 2+ pulses in UE/LE bilaterally, right humeral neck fracture with minimal bruising - sling initially in place, patient removed it, discoloration left great toenail Neuro: PERRL, encephalopathic, not answering questions or following commands, moving all extremities with equal strength Results & Data Results & Data Vital Signs (Past 12 Hours) Vital Signs Temp Pulse Resp BP Pulse Ox O2 Del Method 10/04/22 21:38 147 H 35 H 123/72 100 Room Air 10/04/22 21:10 145 H 34 H 100 Room Air 10/04/22 21:02 152 H 28 H 121/73 99 Room Air 10/04/22 20:50 155 H 25 H 100 Room Air 10/04/22 20:49 152 H 27 H 116/63 100 Room Air 10/04/22 20:40 149 H 25 H 100 Room Air 10/04/22 20:30 143 H 25 H 99 Room Air 10/04/22 20:20 151 H 27 H 99 Room Air 10/04/22 20:10 143 H 23 99 Room Air 10/04/22 20:09 143 H 10/04/22 19:23 36.7 C 155 H 17 95/62 L 100 Room Air Laboratory Results Laboratory Results WBC 10.92 K/ul (4.8-10.8) H 10/04/22 20:44 RBC 3.51 M/uL (4.70-6.10) L 10/04/22 20:44 Hgb 11.9 g/dl (14.0-18.0) L 10/04/22 20:44 Hct 38.4 % (42.0-52.0) L 10/04/22 20:44 MCV 109.4 fL (80.0-100.0) H 10/04/22 20:44 MCH 33.9 pg (25.0-34.0) 10/04/22 20:44 MCHC 31.0 g/dL (32.0-36.0) L 10/04/22 20:44 RDW Std Deviation 56.5 fL (36.4-46.3) H 10/04/22 20:44 RDW Coeff of Margarita 14.0 % (11.5-14.5) 10/04/22 20:44 Plt Count 388 K/uL (130-400) 10/04/22 20:44 MPV 9.4 fL (9.4-12.4) 10/04/22 20:44 Immature Gran % (Auto) 1.2 % 10/04/22 20:44 Neut % (Auto) 84.3 % 10/04/22 20:44 Lymph % (Auto) 8.3 % 10/04/22 20:44 Ford % (Auto) 5.5 % 10/04/22 20:44 Eos % (Auto) 0.2 % 10/04/22 20:44 Baso % (Auto) 0.5 % 10/04/22 20:44 Neut # (Auto) 9.20 K/uL (1.40-6.50) H 10/04/22 20:44 Lymph # (Auto) 0.91 K/uL (1.2-3.4) L 10/04/22 20:44 [place] # (Auto) 0.60 K/uL (0.11-0.59) H 10/04/22 20:44 Eos # (Auto) 0.02 K/uL (0-0.50) 10/04/22 20:44 Baso # (Auto) 0.06 K/uL (0-0.2) 10/04/22 20:44 Immature Gran # (Auto) 0.13 K/uL (0.01-0.20) 10/04/22 20:44 PT 10.2 Seconds (9.0-12.0) 10/04/22 20:44 INR 0.9 (0.9-1.1) 10/04/22 20:44 APTT 22.2 Seconds (21.0-31.0) 10/04/22 20:44 PTT Ratio 0.8 10/04/22 20:44 ABG pH 7.07 (7.35-7.45) L* 10/04/22 21:06 ABG pCO2 9 mmHg (35-46) L 10/04/22 21:06 ABG pO2 140 mmHg (80-95) H 10/04/22 21:06 ABG HCO3 3 mmol/L (19-24) L 10/04/22 21:06 ABG O2 Saturation 99.3 % (90-95) H 10/04/22 21:06 ABG Base Excess -25.2 mEq/L (-9-1.8) L 10/04/22 21:06 Demond Test POS (Pos) 10/04/22 21:06 Oxygen Given ROOM AIR 10/04/22 21:06 Sodium 131 mmol/L (136-145) L 10/04/22 20:44 Potassium 5.4 mmol/L (3.5-5.1) H 10/04/22 20:44 Chloride 89 mmol/L (98-107) L 10/04/22 20:44 Carbon Dioxide 5 mmol/L (21-32) L* 10/04/22 20:44 Anion Gap 37 (3-11) H 10/04/22 20:44 BUN 21 mg/dl (6-23) 10/04/22 20:44 Creatinine 1.27 mg/dl (0.6-1.4) 10/04/22 20:44 Est Cr Clr Drug Dosing 69.1 ml/min 10/04/22 20:44 Est GFR ( Amer) 81.9 ml/min 10/04/22 20:44 Est GFR (Non-Af Amer) 70.7 ml/min 10/04/22 20:44 BUN/Creatinine Ratio 16.5 (10-20) 10/04/22 20:44 Glucose 666 mg/dl (70-99(Fasting)) H* 10/04/22 20:44 POC Glucose > 600 mg/dl (70-99) H* 10/04/22 23:07 Lactate 3.5 mmol/L (0.4-2.0) H* 10/04/22 20:44 Calcium 8.8 mg/dl (8.6-10.3) 10/04/22 20:44 Magnesium 2.3 mg/dl (1.7-2.4) 10/04/22 20:44 Total Bilirubin 0.6 mg/dl (0.2-1.0) 10/04/22 20:44 Direct Bilirubin 0.1 mg/dl (0-0.2) 10/04/22 20:44 AST 20 U/L (13-39) 10/04/22 20:44 ALT 35 U/L (7-52) 10/04/22 20:44 Alkaline Phosphatase 152 U/L (34-104) H 10/04/22 20:44 Troponin I High Sens 79.6 pg/ml (0-20) H* 10/04/22 20:44 Total Protein 6.4 gm/dl (6.0-8.3) 10/04/22 20:44 Albumin 3.5 gm/dl (3.4-5.0) 10/04/22 20:44 Procalcitonin 1.26 ng/ml (0-0.5) H 10/04/22 20:44 Urine Color Yellow 10/04/22 20:56 Urine Appearance Clear (Clear) 10/04/22 20:56 Urine pH 5.0 (4.5-7.5) 10/04/22 20:56 Ur Specific [place] 1.022 (1.000-1.030) 10/04/22 20:56 Urine Protein Negative (Negative) 10/04/22 20:56 Urine Glucose (UA) 3+ (Negative) H 10/04/22 20:56 Urine Ketones 4+ (Negative) H 10/04/22 20:56 Urine Blood Negative (Negative) 10/04/22 20:56 Urine Nitrite Negative (Negative) 10/04/22 20:56 Urine Bilirubin Negative (Negative) 10/04/22 20:56 Urine Urobilinogen Negative (Negative) 10/04/22 20:56 Ur Leukocyte Esterase Negative (Negative) 10/04/22 20:56 SARS-CoV-2, RNA, NAAT NEGATIVE (NEGATIVE) 10/04/22 20:10 Diagnostic Findings CXR - per my interpretation - trachea midline, normal cardiac silhouette, no infiltrate, edema, PTX or effusions ECG Additional Comments: EKG - per my interpretation - study reveals Sinus tachycardia at 137bpm, normal axis, JN=834, QRS=78, YWg=841, non-specific ST wave changes, no STEMI Code Status & VTE Plan VTE Prophylaxis Plan VTE Prophylaxis will be ordered: Yes PG Care Time/CCT Total # of Minutes Spent Total Time Spent with Patient: Total time spent is greater than 50% in coordination of care (as documented) at patient's floor/unit and/or counseling patient: Coding Level of Care Code 58807 INT INP/OBS CARE MIN Diagnoses DKA (diabetic ketoacidosis) E10.10 Diabetes mellitus complication detail: without coma Diabetes mellitus type: type 1 Closed fracture of neck of right humerus S42.211A Encounter type: initial encounter (1) DKA (diabetic ketoacidosis) Diabetes mellitus complication detail: without coma Diabetes mellitus type: type 1 Qualified Code(s): E10.10 - Type 1 diabetes mellitus with ketoacidosis without coma (2) Closed fracture of neck of right humerus Encounter type: initial encounter Qualified Code(s): S42.211A - Unspecified displaced fracture of surgical neck of right humerus, initial encounter for closed fracture
[2022-10-04] MEDS ORDERED: SODIUM BICARB 8.4% INJ 50 MEQ/50 ML SYR IV STA (22:38)
[2022-10-04] MEDS ORDERED: HALOPERIDOL LACTATE 5 MG/ML 1 ML VIAL IV STA (22:38)
--- NOTE | 2022-10-04 22:47 | Critical Care Consultation ---
Date of Consultation October 04, 2022 Assessment & Plan (1) DKA (diabetic ketoacidosis): (2) Closed fracture of neck of right humerus: (3) Major depressive disorder, recurrent severe without psychotic features: (4) Intermittent explosive disorder: (5) High anion gap metabolic acidosis: Plan Reason Critically Ill: 37 YOM admitted for DKA with elevated PCT and encephalopathy. Will be admitted to ICU for continued correction of his acid/base distrubance and glucose levels. Continue searching for other causes of encephalopathy as well as elevated PCT. Neuro - Metabolic encephalopathy, agitation, pain secondary to humeral fracture CAM ICU: CHRISTINA - He presents without fevers or seizures- he endorses not feeling well over the past few days - may have some component of narcosis and not taking his medications- however he is unable to provide any further information at this time - no focal deficits - His agitation at this current time is likely related to his acidosis- consider Precedex as this will not hinder respiratory drive- if behavior becomes a problem - Tylenol, Gabapentin, small dose of Morphine for pain related to his humeral fracture Cardiac - Hypovolemia, sinus tachycardia, Elevated Troponin - Replete volume - he is now initial 2 liters of crystalloid- continue with volume resuscitation for PH and UO - Troponin elevation likely demand from stress of DKA- no STEMI on ECG- trend until downtrend Respiratory - Tachypnea - compensatory at this time for his severe DKA- as per HPI cognizant of sedating to blunt respiratory drive - If needed consider BiPAP with back up rate to maintain his high minute ventilation GI - NO acute needs RENAL/LYTES - AGAP metabolic acidosis, lactic acidosis - Will send toxicology screen as well as serum and urine osmo - osmolar gap 25 (16 Dorwalt-Chalmer equation) - with lactate elevation - His renal indices are normal at this time and is not hypotensive - continue with crystalloid infusion and DKA protocol - Follow lactate following resuscitation - consideration of HCo3 if needed to assist gap closure - No acute needs - teague catheter if able to place - Lipase 10 ENDO - DMI - history of non-compliance and overdoses HEME - No acute needs MSK: Closed non-displaced fracture of right humerus - presents with bruising- with his rolling around and ripping of his sling, will obtain x-ray. - Sling again when able ID - Elevated PCT and WBC count - currently without source- of pulmonary/skin/urine - Blood cultures drawn in EMD- NGTD - had dose of cefepime- transition to Rocephin in morning - further imaging when able to obtain if warranted LINES/IV ACCESS - PIV, IO Continue use of these lines DVT PROPHYLAXIS - SCDS DISPO: ICU until metabolic derangements and encephalopathy has cleared as well as glucose in goal and gap closed I have personally spent 50 minutes of critical care time in the direct management of this patient. This is a life/limb threatening event. This includes time spent evaluating patient, direct bedside care, chart review, placing orders, interpretation of diagnostic studies, discussion with consultants, patient, and family members, as well as other required patient management activities. This time is exclusive of all separately billable procedures, and teaching time and separate from and in addition to any other critical care service time. Thank you for allowing us to participate in the care of this patient. Please refer to my attending physician's documentation for any further recommendations. ADDENDUM: Patient with increasing lactate level up to 10- he is improving in mental status, glucose is improving. Remains with HCO3 of 5 and PH 7.05 He remains with soft abdomen as well as soft right arm with 2+ pulses to his right arm and wrist. He remains with very dry mucous membranes. He has not been hypotensive or hypoxic but remains tachycardic to the 130s. Did discuss acid base balance and rising lactate with attending physician. Feels likely related to being under-resuscitated and possibly related to his previous combativeness and thrashing around in bed. Declined fomepizole at this time. Continue with crystalloid infusion and monitoring. Lawrence REINOSO ([facility]-) Supervising Physician Co-Signing Physician Notes Patient seen and examined. EMR reviewed. Agree with assessment plan as noted by KADY. Discussed on multidisciplinary rounds. Patient is improving clinically. He will continue insulin drip until his mental status resolves and his anion gap closes. Continue antibiotics in the form of Rocephin for potential right upper lobe pneumonia. At risk for aspiration. We will recheck procalcitonin in a.m.. Can likely transition to oral agents once taking p.o. Continue electrolyte replacement protocol. We will plan on discontinuing his IO line and discontinuing the central line as soon as adequate peripheral IV access can be obtained. Patient is critically ill with multiple medical issues and at risk for clinical deterioration and potential . A total of 75 minutes critical care time was spent in evaluation management of this patient including time by myself as well as with the overnight critical care KADY History of Present Illness Reason for Consultation: DKA Requesting Physician: Lara Carey MD Attending Physician: Lara Carey MD History of Present Illness Patient encephalopathic and not conversing on evaluation in EMD. All information obtained is from conversing with EMD/Medicine staff and chart review. 37 YOM with medical history of: DM type I, GERD, MDD with intermittent explosive disorder, previous suicide attempts with overdose of insulin. Patient also with a fractured right humeral neck fracture that occurred ~10/01/22 and was treated with sling and oral narcotics. Patient came in to the EMD today via EMS. Appears he called EMS under his own intuition and was reportedly conversant and somewhat cooperative on arrival to the EMD and as time went on became more agitated and wanting to leave as well as pulling IV lines out. On initial lab-work appears patient is in DKA with GAP of 37 and HCO3 of 5 with PH of 7.0 and glucose of >600. He has pulled out multiple IV access sites. He was given Haldol and Ativan in the EMD for agitation/encephalopathy as well as placed in 4 limb restraints to gain access and initiate life saving therapeutics. On my exam the patient is disorientated rolling around in bed, he did open his eyes to voice initially. He has just finished getting another IV placed, IO placed as well as working on another PIV line- with initiation of IVF as well as insulin infusion. Awaiting a toxicology screen as well as serum and urine osmo. He had PCT drawn that was elevated and was given dose of Cefepime in the EMD. CXR reviewed and urine reviewed- does not appear to be at this time concerning for ineffective process. Will have to be cognizant of sedating and taking away his respiratory drive for compensation. Will place on 1:1 and rest raints. Upon arrival to ICU patient sedated does open eyes to voice but briefly - IV access remained poor- will place central access emergently for labs and administration of life saving insulin and fluids and electrolytes. CODE: FULL per last admission and current order Allergies Allergy/AdvReac Type Severity Reaction Status Date / Time codeine Allergy Intermediate Rash Verified 10/04/22 21:03 erythromycin base Allergy Unknown HAPPENED Verified 10/04/22 21:03 A SMALL CHILD Home Medications Medication Instructions Recorded Confirmed Type insulin syringe-needle U-100 0.3 #100 ea 07/31/21 09/20/22 Rx mL 31 gauge x 15/64" albuterol sulfate 90 mcg/actuation 2 puff inhalation Q6H PRN 06/07/22 10/04/22 Rx aerosol inhaler shortness of breath or wheezing #8.5 grams acetaminophen 500 mg tablet 1,000 mg PO Q8 PRN Pain 08/19/22 10/04/22 History (Tylenol Extra Strength) gabapentin 100 mg capsule 100 mg PO TID PRN pain #90 caps 08/19/22 10/04/22 Rx blood sugar diagnostic (OneTouch #100 ea 08/22/22 09/20/22 Rx Verio test strips) blood-glucose meter (Kin CommunityTouch #1 ea 08/22/22 09/20/22 Rx Verio Reflect Meter) lancets 33 gauge (OneTouch Delica #100 ea 08/22/22 09/20/22 Rx Lancets) insulin glargine 100 unit/mL (3 15 unit (0.15 mL) subcut QAM #15 mL 08/25/22 10/04/22 Rx mL) subcutaneous pen (Lantus Solostar U-100 Insulin) insulin lispro 100 unit/mL 20 unit (0.2 mL) subcut TID #15 mL 08/29/22 10/04/22 Rx subcutaneous pen (Humalog KwikPen (U-100) Insulin) oxycodone 5 mg tablet 5 mg PO Q6H PRN pain #20 tabs 10/01/22 10/04/22 Rx ondansetron HCl 4 mg tablet 4 mg PO TID PRN NAUSEA/VOMITING 10/04/22 10/04/22 History Patient History Medical History Diabetic peripheral neuropathy DKA (diabetic ketoacidosis) Encounter for examination following treatment at hospital GERD (gastroesophageal reflux disease) MDD (major depressive disorder), recurrent episode, moderate Type I diabetes mellitus Surgical History No significant past surgical history Family History Other Diabetes Social History Smoking Status: Current every day smoker Tobacco Type: Cigarettes Cigarettes Per Day: 1 pack; Second Hand Exposure: No; Do You Dip or Chew Tobacco: No; Hx Alcohol Use: No Hx Substance Use: No Preferred Language: Bulgarian Communication Ability: Effective Visual Impairment: Limited Hearing Ability: Normal Medical Imaging Technologist Required: No Beliefs That Will Affect Care: None marital status: Single Current Living Situation: Significant Other Current Living Situation Comment: Lives with girlfreind current occupational status: disabled How many Children do You have: 0 Feels Safe at Home: Yes Childhood Exposure to Second-Hand Smoke: No Diet: diabetic and regular caffeine: Yes during the past year weight has: remained stable Dental Care, Regularly: Yes Physical Activity Frequency: Daily Seatbelt Use: always Sunscreen Use: No Do you think of yourself as: straight/heterosexual Sexual Activity: has been sexually active within the last 12 months Gender Identity: Male Assistive Devices: None Review of Systems Review of Systems: REVIEW OF SYSTEMS: Unable to obtain secondary to encephalopathy Physical Exam Physical Exam: PHYSICAL EXAM: General: stuporous opens eyes to name ENT: PERRLA, Edentulous, Mucous membranes dry Neuro: AAO 1, speech garbled and incoherent, strength intact bilaterally 5/5, sensation intact and equal all extremities Chest: equal rise and fall of the chest, no accessory muscle use, unable to appreciate lung sounds with grunting Cardiac: Regular rate and rhythm, telemetry reviewed- sinus tach, skin warm dry, cap refill <3 seconds, peripheral pulses +2 no JVD, no murmur, no edema GI: NABS x 4 quadrants, soft, nontender to palpation, no rebound, guarding or tenderness : Spontaneously voiding, no pain, no CVA tenderness, Extremities: right foot with bruise to right great toe Psych: stuporous and not following commands Skin: no rash or erythema Results & Data Results & Data Vital Signs (Past 12 Hours) Vital Signs Temp Pulse Resp BP Pulse Ox O2 Del Method 10/04/22 21:38 147 H 35 H 123/72 100 Room Air 10/04/22 21:10 145 H 34 H 100 Room Air 10/04/22 21:02 152 H 28 H 121/73 99 Room Air 10/04/22 20:50 155 H 25 H 100 Room Air 10/04/22 20:49 152 H 27 H 116/63 100 Room Air 10/04/22 20:40 149 H 25 H 100 Room Air 10/04/22 20:30 143 H 25 H 99 Room Air 10/04/22 20:20 151 H 27 H 99 Room Air 10/04/22 20:10 143 H 23 99 Room Air 10/04/22 20:09 143 H 10/04/22 19:23 36.7 C 155 H 17 95/62 L 100 Room Air Laboratory Results Abnormal lab results 10/04/22 10/04/22 10/04/22 Range/Units 19:27 20:13 20:44 WBC 10.92 H (4.8-10.8) K/ul RBC 3.51 L (4.70-6.10) M/uL Hgb 11.9 L (14.0-18.0) g/dl Hct 38.4 L (42.0-52.0) % MCV 109.4 H (80.0-100.0) fL MCHC 31.0 L (32.0-36.0) g/dL RDW Std Deviation 56.5 H (36.4-46.3) fL Neut # (Auto) 9.20 H (1.40-6.50) K/uL Lymph # (Auto) 0.91 L (1.2-3.4) K/uL Gosper # (Auto) 0.60 H (0.11-0.59) K/uL ABG pH (7.35-7.45) ABG pCO2 (35-46) mmHg ABG pO2 (80-95) mmHg ABG HCO3 (19-24) mmol/L ABG O2 Saturation (90-95) % ABG Base Excess (-9-1.8) mEq/L Sodium (136-145) mmol/L Potassium (3.5-5.1) mmol/L Chloride (98-107) mmol/L Carbon Dioxide (21-32) mmol/L Anion Gap (3-11) Glucose (70-99(Fasting)) mg/dl POC Glucose > 600 H* 548 H* (70-99) mg/dl Lactate (0.4-2.0) mmol/L Alkaline Phosphatase (34-104) U/L Troponin I High Sens (0-20) pg/ml Procalcitonin (0-0.5) ng/ml Urine Glucose (UA) (Negative) Urine Ketones (Negative) 10/04/22 10/04/22 10/04/22 Range/Units 20:44 20:44 20:44 WBC (4.8-10.8) K/ul RBC (4.70-6.10) M/uL Hgb (14.0-18.0) g/dl Hct (42.0-52.0) % MCV (80.0-100.0) fL MCHC (32.0-36.0) g/dL RDW Std Deviation (36.4-46.3) fL Neut # (Auto) (1.40-6.50) K/uL Lymph # (Auto) (1.2-3.4) K/uL Gosper # (Auto) (0.11-0.59) K/uL ABG pH (7.35-7.45) ABG pCO2 (35-46) mmHg ABG pO2 (80-95) mmHg ABG HCO3 (19-24) mmol/L ABG O2 Saturation (90-95) % ABG Base Excess (-9-1.8) mEq/L Sodium 131 L (136-145) mmol/L Potassium 5.4 H (3.5-5.1) mmol/L Chloride 89 L (98-107) mmol/L Carbon Dioxide 5 L* (21-32) mmol/L Anion Gap 37 H (3-11) Glucose 666 H* (70-99(Fasting)) mg/dl POC Glucose (70-99) mg/dl Lactate 3.5 H* (0.4-2.0) mmol/L Alkaline Phosphatase 152 H (34-104) U/L Troponin I High Sens 79.6 H* (0-20) pg/ml Procalcitonin 1.26 H (0-0.5) ng/ml Urine Glucose (UA) (Negative) Urine Ketones (Negative) 10/04/22 10/04/22 10/04/22 Range/Units 20:56 21:05 21:06 WBC (4.8-10.8) K/ul RBC (4.70-6.10) M/uL Hgb (14.0-18.0) g/dl Hct (42.0-52.0) % MCV (80.0-100.0) fL MCHC (32.0-36.0) g/dL RDW Std Deviation (36.4-46.3) fL Neut # (Auto) (1.40-6.50) K/uL Lymph # (Auto) (1.2-3.4) K/uL Gosper # (Auto) (0.11-0.59) K/uL ABG pH 7.07 L* (7.35-7.45) ABG pCO2 9 L (35-46) mmHg ABG pO2 140 H (80-95) mmHg ABG HCO3 3 L (19-24) mmol/L ABG O2 Saturation 99.3 H (90-95) % ABG Base Excess -25.2 L (-9-1.8) mEq/L Sodium (136-145) mmol/L Potassium (3.5-5.1) mmol/L Chloride (98-107) mmol/L Carbon Dioxide (21-32) mmol/L Anion Gap (3-11) Glucose (70-99(Fasting)) mg/dl POC Glucose > 600 H* (70-99) mg/dl Lactate (0.4-2.0) mmol/L Alkaline Phosphatase (34-104) U/L Troponin I High Sens (0-20) pg/ml Procalcitonin (0-0.5) ng/ml Urine Glucose (UA) 3+ H (Negative) Urine Ketones 4+ H (Negative) Diagnostic Findings CXR Medications Administered Insulin Human Regular 250 (units/ Sodium Chloride) 250 mls @ 6 mls/hr IV .Q24H [facility]; Protocol Stop: 11/03/22 21:44 Last Admin: 10/04/22 23:07 Dose: 6 units/hr, 6 mls/hr Documented By: CHINA Co-signed By: Discontinued Medications Haloperidol Lactate (Haloperidol Lactate 5 Mg/Ml 1 Ml Vial) Confirm Administered Dose 5 mg .ROUTE .STK-MED ONE Stop: 10/04/22 21:54 Last Admin: 10/04/22 21:56 Dose: Not Given Documented By: CHINA Haloperidol Lactate (Haloperidol Lactate 5 Mg/Ml 1 Ml Vial) 5 mg IM NOW STA Stop: 10/04/22 21:56 Last Admin: 10/04/22 21:56 Dose: 5 mg Documented By: CHINA Haloperidol Lactate (Haloperidol Lactate 5 Mg/Ml 1 Ml Vial) 2.5 mg IV NOW STA Stop: 10/04/22 22:39 Last Admin: 10/04/22 22:45 Dose: 2.5 mg Documented By: CHINA Cefepime HCl (Maxipime) 2,000 mg in 20 mls @ 5 mls/min IV NOW STA; Protocol Stop: 10/04/22 20:03 Last Admin: 10/04/22 20:54 Dose: 5 mls/min Documented By: CHINA Sodium Chloride (Nss 1000ml) 2,000 mls @ 999 mls/hr IV .Q2H1M ONE Stop: 10/04/22 22:00 Last Admin: 10/04/22 20:54 Dose: 999 mls/hr Documented By: CHINA Insulin Human Regular (Novolin-R Bolus From Bag) 6 units IV ONE ONE Stop: 10/04/22 22:01 Last Admin: 10/04/22 23:08 Dose: 6 units Documented By: CHINA Co-signed By: Lidocaine HCl (Lidocaine 1% Local 20 Ml Vial) Confirm Administered Dose 4 ml .ROUTE .STK-MED ONE Stop: 10/04/22 22:53 Last Admin: 10/04/22 23:02 Dose: 4 ml Documented By: HAWK Lorazepam (Lorazepam 2 Mg/1 Ml Vial) 0.5 mg IV NOW STA Stop: 10/04/22 21:04 Last Admin: 10/04/22 21:08 Dose: 0.5 mg Documented By: Lorazepam (Lorazepam 2 Mg/1 Ml Vial) 1 mg IV NOW STA Stop: 10/04/22 21:45 Last Admin: 10/04/22 22:38 Dose: 1 mg Documented By: CHINA Ondansetron HCl (Ondansetron Inj 2 Mg/Ml 2 Ml Vial) 4 mg IV NOW STA Stop: 10/04/22 21:04 Last Admin: 10/04/22 21:08 Dose: 4 mg Documented By: Sodium Bicarbonate (Sodium Bicarb 8.4% Inj 50 Meq/50 Ml Syr) 50 meq IV NOW STA Stop: 10/04/22 22:39 Last Admin: 10/04/22 22:45 Dose: 50 meq Documented By: CHINA ECG Additional Comments: Sinus tachycardia Septal infarct , age undetermined Abnormal ECG When compared with ECG of 10-SEP-2022 19:32, Septal infarct is now Present Non-specific change in ST segment in Anterior leads Nonspecific T wave abnormality now evident in Inferior leads Coding Level of Care Code 00637 CRITICAL CARE EA ADD 30M Diagnoses DKA (diabetic ketoacidosis) E10.10 Diabetes mellitus complication detail: without coma Diabetes mellitus type: type 1 Closed fracture of neck of right humerus S42.211A Encounter type: initial encounter Major depressive disorder, recurrent severe without psychotic features F33.2 Intermittent explosive disorder F63.81 High anion gap metabolic acidosis E87.2 (1) DKA (diabetic ketoacidosis) Diabetes mellitus complication detail: without coma Diabetes mellitus type: type 1 Qualified Code(s): E10.10 - Type 1 diabetes mellitus with ketoacidosis without coma (2) Closed fracture of neck of right humerus Encounter type: initial encounter Qualified Code(s): S42.211A - Unspecified displaced fracture of surgical neck of right humerus, initial encounter for closed fracture
[2022-10-04] MEDS ORDERED: LIDOCAINE 1% LOCAL 20 ML VIAL ONE (22:52)
[2022-10-04] MEDS: INSULIN REGULAR 250 UNITS in SODIUM CHLORIDE 0.9% 247.5 ML IV SCH (23:07)
[2022-10-04 23:31] LABS: Phosphorus 5.4 mg/dl (2.5-4.9)
[2022-10-05 00:04] LABS: Amphetamines+Metham, Urine Neg (Neg); Barbiturates, Urine Neg (Neg); Benzodiazepine, Urine Neg (Neg); Cocaine, Urine Neg (Neg); MDMA (Ecstacy), Urine Neg (Neg); Methadone, Urine Neg (Neg); Opiate, Urine Neg (Neg); Phencyclidine, Urine Neg (Neg)
--- NOTE | 2022-10-05 00:14 | Procedure Note ---
Procedure Note Date of Service October 05, 2022 Note Procedure: RIGHT FEMORAL Central Line Placement Proceduralist: Lawrence REINOSO ([facility]) Attending: Dr. CARLSON Indication: Poor Venous Access, Multiple Lab Draws Necessary, etc. Anesthesia: [x]Lidocaine 1% Consent was NOT obtained as this was emergent secondary to poor access and needing IVF and Insulin for severe DKA, there was no family immediately available. A time-out was completed verifying correct patient, procedure, site. Patients RIGHT GROIN was cleansed and draped in the typical sterile fashion using Chloraprep and maximal sterile barriers. The FEMORAL Vein and FEMORAL Artery were identified using ultrasound. The superficial tissue was anesthetized using 8 mL of 1% lidocaine without epinephrine under direct visualization with the ultrasound. After adequate anesthetization was achieved, the FEMORAL vein was cannulated under direct ultrasound guidance using an introducer needle on a syringe. Good venous blood return was maintained prior to removal of syringe from introducer needle. Using Seldinger Technique, a guide wire was advanced through the introducer needle without resistance. The introducer needle was removed and ultrasound images were obtained of the guide wire within the FEMORAL Vein. A small incision was made in penetrating fashion at the guide wire insertion site utilizing an 11 blade scalpel. The dilator was advanced to the vessel without resistance. The dilator was exchanged for the triple lumen catheter which was advanced into the vessel without resistance. The guide wire was removed intact from the catheter without issue. Claves were placed on each catheter tip with confirmation of good blood flow from each lumen. Each port was easily flushed with sterile saline. The catheter was placed at 20 cm and sut[address] in place. BioPatch was applied to the catheter. The line was secured with suture and a sterile Tegaderm dressing was applied over the catheter with careful attention to sterility. Patient tolerated procedure well. No immediate complications were met. Images were not saved for permanent record Procedural Ultrasound Guidance: Procedure Date: Indication: Direct Visualization of Central Venous access Proceduralist: Lawrence REINOSO ([facility]) Attending: Dr. CARLSON Artery AND Vein visualized: YES Compressible Vein: YES Guidewire or Short Catheter seen in vein prior to dilation: YES Images obtained were not saved for permanent record as this was emergent. Coding CPT Codes Tubes, Drains, and Vasc Access - Tubes, Drains, and Vasc Access: [id number] Insertion Of Non-tunneled Catheter Age 3 Yrs> ([id number]) Tubes, Drains, and Vasc Access - Tubes, Drains, and Vasc Access: [id number] Ultrasound Guidance For Vascular ([id number]) [facility] [place] Procedure Codes (Charges) Tubes, Drains, and Vasc Access Procedure 1: Tubes, Drains, and Vasc Access: [id number] Insertion Of Non-tunneled Catheter Age 3 Yrs> Procedure 2: Tubes, Drains, and Vasc Access: [id number] Ultrasound Guidance For Vascular
[2022-10-05] MEDS ORDERED: GABAPENTIN 100 MG CAP PO PRN (00:16)
[2022-10-05] MEDS ORDERED: ONDANSETRON INJ 2 MG/ML 2 ML VIAL IV PRN (00:16)
[2022-10-05] MEDS ORDERED: PHARMACY GLYCEMIC MGMT CONSULT PRN (00:16)
[2022-10-05] MEDS ORDERED: DKA GOAL RANGE 150-250 mg/dl ONE (00:16)
[2022-10-05] MEDS ORDERED: ACETAMINOPHEN 500 MG TAB PO PRN (00:16)
[2022-10-05] MEDS ORDERED: LACTATED RINGER'S 1,000 ML IV ONE (00:16)
[2022-10-05] MEDS ORDERED: MoRPHine SULFATE 2 MG/ML CARP IV PRN (00:16)
[2022-10-05] MEDS ORDERED: INSULIN REGULAR 250 UNITS in SODIUM CHLORIDE 0.9% 247.5 ML IV SCH (00:16)
[2022-10-05] MEDS ORDERED: STAT IV Infusion **Titration per Protocol STA (00:16)
[2022-10-05 00:54] LABS: BUN Creatinine Ratio 20.5 (10-20); Calcium 7.2 mg/dl (8.6-10.3); Creatinine Clr Calc Pharmacy 75.1 ml/min; Est GFR (African American) 90.5 ml/min; Est GFR (Non-African American) 78.1 ml/min; Magnesium 2.3 mg/dl (1.7-2.4); Phosphorus 7.1 mg/dl (2.5-4.9); Potassium 4.1 mmol/L (3.5-5.1)
[2022-10-05 00:59] LABS: Troponin I High Sensitivity 64.3 pg/ml (0-20)
[2022-10-05] MEDS: POTASSIUM CHLORIDE / WTR 20 MEQ/100 ML PLCT IV SCH ×2 (01:10→02:47)
[2022-10-05] MEDS ORDERED: LACTATED RINGER'S 1,000 ML IV SCH (01:30)
[2022-10-05] MEDS ORDERED: PENDING D5 1/2NS+40mEq KCL IVF SCH (02:00)
[2022-10-05] MEDS ORDERED: PENDING 1/2NSS+40mEq KCL IVF SCH (02:00)
[2022-10-05 02:31] LABS: Base Excess VBG -23.6 mEq/L; HCO3 VBG 5 mmol/L; Oxygen Saturation VBG 67.1 %; PCO2 VBG 20 mmHg (38-50); PO2 VBG 48 mmHg; pH VBG 7.04 (7.36-7.41)
[2022-10-05] MEDS ORDERED: LACTATED RINGER'S 500 ML IV ONE ×2 (02:57→04:31)
[2022-10-05] MEDS ORDERED: NSS + 20MEQ KCL 20 MEQ/1,000 ML BAG IV SCH (03:30)
[2022-10-05 03:46] LABS: Creatine Kinase 353 U/L (30-223); Glucose 192 mg/dl (70-99(Fasting))
[2022-10-05] MEDS: POTASSIUM CHLORIDE 40 MEQ in D5W AND 1/2NSS 1,000 ML IV SCH ×3 (04:28→18:08)
[2022-10-05 04:44] LABS: BUN Creatinine Ratio 16.7 (10-20); Calcium 7.5 mg/dl (8.6-10.3); Creatinine Clr Calc Pharmacy 73.6 ml/min; Est GFR (African American) 87.8 ml/min; Est GFR (Non-African American) 75.7 ml/min; Magnesium 2.1 mg/dl (1.7-2.4); Phosphorus 3.8 mg/dl (2.5-4.9); Potassium 4.5 mmol/L (3.5-5.1)
[2022-10-05 04:59] LABS: Troponin I High Sensitivity 68.8 pg/ml (0-20)
[2022-10-05 05:23] LABS: Basophils # (auto) 0.04 K/uL (0-0.2); Basophils % (auto) 0.3 %; Hematocrit (blood only) 27.8 % (42.0-52.0); Hemoglobin 8.9 g/dl (14.0-18.0); Immature Granulocytes # (auto) 0.18 K/uL (0.01-0.20); Immature Granulocytes % (auto) 1.3 %; Lymphocytes # (auto) 1.65 K/uL (1.2-3.4); Lymphocytes % (auto) 11.6 %; Mean Corpuscular Volume 106.1 fL (80.0-100.0); Mean Platelet Volume 8.9 fL (9.4-12.4); Monocytes # (auto) 1.43 K/uL (0.11-0.59); Neutrophils # (auto) 10.93 K/uL (1.40-6.50); Neutrophils % (auto) 76.8 %; Platelet Count 303 K/uL (130-400); RDW Standard Deviation 54.7 fL (36.4-46.3); Red Blood Count 2.62 M/uL (4.70-6.10); White Blood Count 14.23 K/ul (4.8-10.8)
--- NOTE | 2022-10-05 07:01 | XRay Report ---
XR chest 1V portable CLINICAL HISTORY: Sepsis. COMPARISON STUDY: Chest radiograph October 01, 2022. FINDINGS: A proximal right humeral fracture is partially imaged. This was present on prior exam. Ther e is mild hazy right upper lobe airspace opacity. Left lung is clear. No pneumothorax or pleural effu silvana is present. IMPRESSION: 1. Mild hazy right upper lobe opacity. This could reflect a small focus of pneumonia or atelectasis. 2. Redemonstration of a proximal right humeral fracture. ACT 112: Negative or not required by law. Electronically signed by: Filemon Beverly M.D. 10/05/2022 6:59 AM
--- NOTE | 2022-10-05 07:13 | XRay Report ---
XR humerus RT 2V CLINICAL HISTORY: fracture COMPARISON: Right humerus radiographs October 01, 2022. FINDINGS: Incidental note is made of right mid to upper lung airspace opacity. Note is again made of an acute right humeral neck fracture. Fracture is displaced and impacted. This has increased since p rior exam. Fracture extends into the humeral head. Alignment of the right glenohumeral and acromiocla vicular joints remains anatomic. The distal right humerus fracture. Alignment of the right elbow is l ikely anatomic. IMPRESSION: 1. Acute right humeral neck fracture. Fracture displacement and impaction have increased since prior radiograph of October 01, 2022. 2. Mild right lung opacity which could reflect pneumonia or atelectasis. ACT 112: Negative or not required by law. Electronically signed by: Filemon Beverly M.D. 10/05/2022 7:12 AM
[2022-10-05] MEDS: INSULIN ASPART PER UNIT CHARGE SC SCH ×4 (07:19→19:57)
[2022-10-05] MEDS ORDERED: INSULIN ASPART PER UNIT CHARGE SC SCH (07:30)
--- NOTE | 2022-10-05 07:37 | Hospitalist Progress Note ---
Date of Service October 05, 2022 Assessment & Plan (1) DKA (diabetic ketoacidosis): Plan: profound acidosis, secondary to dka, unclear of why, does have humeral fracture pre hospital previously history of dka admissions empiric antibiotics, patient with right-sided infiltrate on chest x-ray and some worsening pulm vascular congestion. With hypoxic respiratory failure in the afternoon of 10/05 Lasix was given with improvement (2) Troponin level elevated: Plan: elevated troponin without trend and no acs, demand ischemia is cause (3) Closed fracture of neck of right humerus: Plan: displaced and impacted fracture, pain control immobilization, ortho consult (4) Major depressive disorder, recurrent severe without psychotic features: (5) Intermittent explosive disorder: Plan Reason Critically Ill: 37 YOM admitted for DKA with elevated PCT and encephalopathy. Will be admitted to ICU for continued correction of his acid/base distrubance and glucose levels. Continue searching for other causes of encephalopathy as well as elevated PCT. Neuro - Metabolic encephalopathy, agitation, pain secondary to humeral fracture CAM ICU: CHRISTINA - He presents without fevers or seizures- he endorses not feeling well over the past few days - may have some component of narcosis and not taking his medications- however he is unable to provide any further information at this time - no focal deficits - His agitation at this current time is likely related to his acidosis- consider Precedex as this will not hinder respiratory drive- if behavior becomes a problem - Tylenol, Gabapentin, small dose of Morphine for pain related to his humeral fracture Cardiac - Hypovolemia, sinus tachycardia, Elevated Troponin - Replete volume - he is now initial 2 liters of crystalloid- continue with volume resuscitation for PH and UO - Troponin elevation likely demand from stress of DKA- no STEMI on ECG- trend until downtrend Respiratory - Tachypnea - compensatory at this time for his severe DKA- as per HPI cognizant of sedating to blunt respiratory drive - If needed consider BiPAP with back up rate to maintain his high minute ventilation GI - NO acute needs RENAL/LYTES - AGAP metabolic acidosis, lactic acidosis - Will send toxicology screen as well as serum and urine osmo - osmolar gap 25 (16 Dorwalt-Chalmer equation) - with lactate elevation - His renal indices are normal at this time and is not hypotensive - continue with crystalloid infusion and DKA protocol - Follow lactate following resuscitation - consideration of HCo3 if needed to assist gap closure - No acute needs - teague catheter if able to place - Lipase 10 ENDO - DMI - history of non-compliance and overdoses HEME - No acute needs MSK: Closed non-displaced fracture of right humerus - presents with bruising- with his rolling around and ripping of his sling, will obtain x-ray. - Sling again when able ID - Elevated PCT and WBC count - currently without source- of pulmonary/skin/urine - Blood cultures drawn in EMD- NGTD - had dose of cefepime- transition to Rocephin in morning - further imaging when able to obtain if warranted LINES/IV ACCESS - PIV, IO Continue use of these lines DVT PROPHYLAXIS - SCDS DISPO: ICU until metabolic derangements and encephalopathy has cleared as well as glucose in goal and gap closed I have personally spent 50 minutes of critical care time in the direct management of this patient. This is a life/limb threatening event. This includes time spent evaluating patient, direct bedside care, chart review, placing orders, interpretation of diagnostic studies, discussion with consultants, patient, and family members, as well as other required patient management activities. This time is exclusive of all separately billable procedures, and teaching time and separate from and in addition to any other critical care service time. Thank you for allowing us to participate in the care of this patient. Please refer to my attending physician's documentation for any further recommendations. ADDENDUM: Patient with increasing lactate level up to 10- he is improving in mental status, glucose is improving. Remains with HCO3 of 5 and PH 7.05 He remains with soft abdomen as well as soft right arm with 2+ pulses to his right arm and wrist. He remains with very dry mucous membranes. He has not been hypotensive or hypoxic but remains tachycardic to the 130s. Did discuss acid base balance and rising lactate with attending physician. Feels likely related to being under-resuscitated and possibly related to his previous combativeness and thrashing around in bed. Declined fomepizole at this time. Continue with crystalloid infusion and monitoring. Lawrence REINOSO ([facility]) Admission and Anticipated Discharge Date Admission Date: October 04, 2022 Subjective Patient is still lethargic awakens falls back asleep Some hypoxia improved with diuretic therapy worsening right-sided infiltrate on antibiotics Physical Exam Physical Exam: pt is awakened but falls asleep easily Card exam is regular right-sided lungs have coarse rhonchi Abdomen NABS soft nontender is a sling of his right arm Results & Data Results & Data Vital Signs (Past 12 Hours) Vital Signs Temp Pulse Pulse Resp BP BP Pulse Ox 10/05/22 06:45 97.7 F 118 H 19 98 10/05/22 06:45 126/73 10/05/22 06:30 97.9 F 120 H 22 100 10/05/22 06:30 130/75 10/05/22 06:15 97.7 F 120 H 21 100 10/05/22 06:15 130/73 10/05/22 06:00 97.7 F 121 H 20 100 10/05/22 06:00 125/74 10/05/22 05:45 97.7 F 119 H 19 100 10/05/22 05:45 125/76 10/05/22 05:30 97.5 F L 123 H 21 100 10/05/22 05:30 124/72 10/05/22 05:15 97.5 F L 125 H 21 99 10/05/22 05:15 129/74 10/05/22 05:00 97.3 F L 124 H 21 100 10/05/22 05:00 118/67 10/05/22 04:45 97.3 F L 126 H 22 98 10/05/22 04:45 114/64 10/05/22 04:32 97.0 F L 126 H 23 99 10/05/22 04:32 106/55 L 10/05/22 04:30 97.0 F L 127 H 22 100 10/05/22 04:15 97.0 F L 134 H 26 H 100 10/05/22 04:00 96.8 F L 121 H 19 100 10/05/22 04:00 122/67 10/05/22 03:45 96.6 F L 120 H 21 100 10/05/22 03:45 118/70 10/05/22 03:30 96.4 F L 125 H 23 100 10/05/22 03:30 113/66 10/05/22 03:15 96.3 F L 128 H 32 H 100 10/05/22 03:15 104/65 10/05/22 03:00 96.3 F L 129 H 27 H 100 10/05/22 03:00 104/58 L 10/05/22 02:46 89/50 L 10/05/22 02:46 95.9 F L 130 H 29 H 100 10/05/22 02:45 95.9 F L 131 H 28 H 99 10/05/22 02:45 77/31 L 10/05/22 02:30 95.7 F L 135 H 29 H 99 10/05/22 02:22 95.5 F L 132 H 24 100 10/05/22 02:22 108/68 10/05/22 02:15 95.4 F L 133 H 33 H 99 10/05/22 02:15 87/64 L 10/05/22 02:00 95.0 F L 134 H 25 H 100 10/05/22 02:00 96/64 L 10/05/22 01:45 94.6 F L 134 H 34 H 100 10/05/22 01:45 85/73 L 10/05/22 01:30 94.6 F L 142 H 24 99 10/05/22 01:30 97/65 L 10/05/22 01:16 94.6 F L 137 H 34 H 99 10/05/22 01:16 110/50 L 10/05/22 01:15 94.6 F L 133 H 29 H 100 10/05/22 01:00 94.3 F L 135 H 34 H 99 10/05/22 01:00 111/65 10/05/22 00:47 94.3 F L 138 H 37 H 99 10/05/22 00:47 107/53 L 10/05/22 00:45 94.3 F L 138 H 34 H 100 10/05/22 00:37 94.1 F L 136 H 37 H 100 10/05/22 00:37 118/76 10/05/22 00:30 93.9 F L 137 H 32 H 100 10/05/22 00:30 85/48 L 10/05/22 00:26 94.1 F L 136 H 29 H 100 10/05/22 00:26 80/66 L 10/05/22 00:15 141 H 28 H 76 L 10/05/22 00:10 141 H 28 H 99 10/05/22 00:10 103/66 10/05/22 00:00 142 H 31 H 99 10/04/22 23:50 139 H 28 H 10/05/22 00:16 139 H 10/05/22 00:32 94.1 F L 138 H 30 H 103/66 100 10/05/22 00:08 130 H 34 H 112/68 98 10/04/22 23:10 133 H 25 H 98 10/04/22 22:50 147 H 25 H 10/04/22 22:40 142 H 25 H 10/04/22 22:30 148 H 30 H 10/04/22 22:10 146 H 31 H 97 10/04/22 22:00 143 H 27 H 100 10/04/22 21:38 147 H 35 H 123/72 100 10/04/22 21:10 145 H 34 H 100 10/04/22 21:02 152 H 28 H 121/73 99 10/04/22 20:50 155 H 25 H 100 10/04/22 20:49 152 H 27 H 116/63 100 10/04/22 20:40 149 H 25 H 100 10/04/22 20:30 143 H 25 H 99 10/04/22 20:20 151 H 27 H 99 10/04/22 20:10 143 H 23 99 10/04/22 20:09 143 H O2 Del Method 10/05/22 06:45 10/05/22 06:45 10/05/22 06:30 06/28/23 06:30 10/05/22 06:15 10/05/22 06:15 10/05/22 06:00 10/05/22 06:00 10/05/22 05:45 10/05/22 05:45 10/05/22 05:30 10/05/22 05:30 10/05/22 05:15 10/05/22 05:15 10/05/22 05:00 10/05/22 05:00 10/05/22 04:45 10/05/22 04:45 10/05/22 04:32 10/05/22 04:32 10/05/22 04:30 10/05/22 04:15 10/05/22 04:00 10/05/22 04:00 10/05/22 03:45 10/05/22 03:45 10/05/22 03:30 10/05/22 03:30 10/05/22 03:15 10/05/22 03:15 10/05/22 03:00 10/05/22 03:00 10/05/22 02:46 10/05/22 02:46 10/05/22 02:45 10/05/22 02:45 10/05/22 02:30 10/05/22 02:22 10/05/22 02:22 10/05/22 02:15 10/05/22 02:15 10/05/22 02:00 10/05/22 02:00 10/05/22 01:45 10/05/22 01:45 10/05/22 01:30 10/05/22 01:30 10/05/22 01:16 10/05/22 01:16 10/05/22 01:15 10/05/22 01:00 10/05/22 01:00 10/05/22 00:47 10/05/22 00:47 10/05/22 00:45 10/05/22 00:37 10/05/22 00:37 10/05/22 00:30 10/05/22 00:30 10/05/22 00:26 10/05/22 00:26 10/05/22 00:15 10/05/22 00:10 10/05/22 00:10 10/05/22 00:00 10/04/22 23:50 10/05/22 00:16 10/05/22 00:32 Room Air 10/05/22 00:08 Room Air 10/04/22 23:10 Room Air 10/04/22 22:50 10/04/22 22:40 10/04/22 22:30 10/04/22 22:10 Room Air 10/04/22 22:00 Room Air 10/04/22 21:38 Room Air 10/04/22 21:10 Room Air 10/04/22 21:02 Room Air 10/04/22 20:50 Room Air 10/04/22 20:49 Room Air 10/04/22 20:40 Room Air 10/04/22 20:30 Room Air 10/04/22 20:20 Room Air 10/04/22 20:10 Room Air 10/04/22 20:09 Laboratory Results Reviewed CBC reviewed chemistry Personally spoke to ICU attending regarding chest x-ray findings PG Care Time/CCT Total # of Minutes Spent Total Time Spent with Patient: Total time spent is greater than 50% in coordination of care (as documented) at patient's floor/unit and/or counseling patient: Coding Level of Care Code 92634 SUB INP/OBS CARE 2MIN Diagnoses DKA (diabetic ketoacidosis) E10.10 Diabetes mellitus complication detail: without coma Diabetes mellitus type: type 1 Troponin level elevated R77.8 Closed fracture of neck of right humerus S42.211A Encounter type: initial encounter Major depressive disorder, recurrent severe without psychotic features F33.2 Intermittent explosive disorder F63.81 (1) DKA (diabetic ketoacidosis) Diabetes mellitus complication detail: without coma Diabetes mellitus type: type 1 Qualified Code(s): E10.10 - Type 1 diabetes mellitus with ketoacidosis without coma (3) Closed fracture of neck of right humerus Encounter type: initial encounter Qualified Code(s): S42.211A - Unspecified displaced fracture of surgical neck of right humerus, initial encounter for closed fracture
[2022-10-05] MEDS: THIAMINE HCL 200 MG in SODIUM CHLORIDE 0.9% 50 ML IV SCH (08:21)
[2022-10-05] MEDS ORDERED: LACTATED RINGER'S 2,000 ML IV ONE (08:21)
[2022-10-05] MEDS: cefTRIAXone SODIUM 1,000 MG in DEXTROSE 5% AD-VAN 50 ML IV SCH (08:34)
[2022-10-05 08:46] LABS: BUN Creatinine Ratio 16.3 (10-20); Calcium 7.4 mg/dl (8.6-10.3); Est GFR (African American) 104.3 ml/min; Phosphorus 2.3 mg/dl (2.5-4.9); Potassium 4.3 mmol/L (3.5-5.1)
[2022-10-05] MEDS: KETOROLAC 30 MG/ML VIAL IV PRN ×2 (10:20→17:13)
[2022-10-05] MEDS ORDERED: CALCIUM GLUCONATE 10% 1,000 MG in DEXTROSE 5% 50 ML IV ONE (10:45)
[2022-10-05] MEDS: ENOXAPARIN INJ 40 MG/0.4 ML SYR SQ SCH (10:59)
--- NOTE | 2022-10-05 11:29 | Pharmacy Report ---
Pharmacy Glycemic Short Note 2 - Date of Service October 05, 2022 - Glycemic Short BSG Results (Last 24 hours): 10/04/22 10/04/22 10/04/22 19:27 20:13 20:44 Glucose 666 H* POC Glucose > 600 H* 548 H* 10/04/22 10/04/22 10/05/22 21:05 23:07 00:21 Glucose 582 H* POC Glucose > 600 H* > 600 H* 10/05/22 10/05/22 10/05/22 01:03 02:02 03:18 Glucose 480 H* 351 H* 192 H POC Glucose 10/05/22 10/05/22 10/05/22 04:06 05:32 06:31 Glucose 133 H POC Glucose 185 H 130 H 10/05/22 10/05/22 10/05/22 06:47 07:01 07:18 Glucose POC Glucose 122 H 121 H 192 H 10/05/22 10/05/22 10/05/22 08:12 08:13 09:15 Glucose 238 H POC Glucose 225 H 173 H 10/05/22 10/05/22 10/05/22 10:14 10:35 10:51 Glucose POC Glucose 135 H 128 H 150 H OUTPATIENT ANTIDIABETIC REGIMEN (per med rec): * Lantus 15 units Q AM * Humalog 20 units TID w/ meals ASSESSMENT: * Type 1 diabetic admitted for DKA, lactic acidosis, humerus fx, and possible pneumonia. Pt reportedly not taking his insulin +/- infection along with other precipitants/stressors. * Initial labs: GLU 666, AG 37, Bicarb 5, art pH 7.07, Na 131 (tari Na 142), effective serum osmo ~299, 4+ ketones in urine * Fluid resuscitation initiated in ED and started on IV insulin infusion per DKA protocol * Dextrose added to IVFs once BSG dropped to goal range - currently receiving D5 1/2 NS + 40KCl * BSGs currently in mid-100s, insulin infusing at 0.8units/hr * Pt not ready to transition to SQ regimen at this time as AG > 12, Bicarb < 15, and patient's mental status not yet fully improved. * Multiple prior visits reviewed to try to obtain data on insulin requirements, but given pt's short duration of past hospitalizations very little data is available. Compliance with outpt regimen uncertain as well. PLAN FOR INPATIENT GLYCEMIC CONTROL: * Continue IV insulin infusion per protocol * Change goal range on insulin drip to 130 -200 to help avoid holding the insulin infusion while AG acidosis continues * Consider transition to SQ regimen when: AG < 12, Bicarb > 15, mental status has improved and pt tolerating diet * Might consider the following if the above are met (this assumes removal of dextrose from IV fluids): -Basal insulin: Lantus 15 units SQ Daily -Bolus insulin -NovoLog per scale ACHS or Q6hrs while NPO (would add at least one overnight BSG check as well if transitioned this PM) -Goal Range: Low 110 mg/dL - High 160 mg/dL -Correction Factor: 35 mg/dL/unit -Nutritional / Prandial insulin per carb ratio of 1 unit per 10 grams CHO consumed
[2022-10-05] MEDS ORDERED: POTASSIUM PHOSPHATE 21 MMOL in SODIUM CHLORIDE 0.9% 500 ML IV ONE (11:30)
--- NOTE | 2022-10-05 12:21 | Electrocardiogram Report ---
Test Reason : Blood Pressure : / mmHG Vent. Rate : 137 BPM Atrial Rate : 137 BPM P-R Int : 142 ms QRS Dur : 078 ms QT Int : 284 ms P-R-T Axes : 065 078 029 degrees QTc Int : 428 ms Sinus tachycardia Otherwise normal ECG When compared with ECG of 10-SEP-2022 19:32, Septal infarct is now Present Non-specific change in ST segment in Anterior leads Nonspecific T wave abnormality now evident in Inferior leads Confirmed by Quang Jaquez ([id number]) on 10/05/2022 12:21:30 PM Referred By: REFERRED SELF Confirmed By:Quang Jaquez
[2022-10-05 13:18] LABS: Calcium 7.7 mg/dl (8.6-10.3); Magnesium 1.8 mg/dl (1.7-2.4); Potassium 4.3 mmol/L (3.5-5.1)
[2022-10-05 13:24] LABS: BUN Creatinine Ratio 15.6 (10-20); Creatinine Clr Calc Pharmacy 92.1 ml/min; Est GFR (African American) 114.9 ml/min; Est GFR (Non-African American) 99.2 ml/min; Phosphorus 2.7 mg/dl (2.5-4.9)
[2022-10-05] MEDS ORDERED: FUROSEMIDE INJ 20 MG/2 ML VIAL IV ONE (13:24)
--- NOTE | 2022-10-05 13:35 | XRay Report ---
SINGLE VIEW CHEST CLINICAL HISTORY: Hypoxia FINDINGS: An AP, portable, upright chest radiograph is compared to study dated 10/04/2022. The examina tion is degraded by portable technique and patient rotation. The cardiomediastinal silhouette is unr emarkable. There is prominence of the pulmonary vasculature. There is increasing airspace consolidati on in the right upper lobe and at the left lung base. Trace pleural effusions are suspected. No pneum othorax is seen. There is fracture of the right proximal humerus. IMPRESSION: 1. There is increasing airspace consolidation in the right upper lobe and at the left lung base. Simi elate clinically for evidence of pneumonia/aspiration pneumonitis. Radiographic follow-up to resoluti on is recommended. 2. Suspect trace pleural effusions. 3. There is prominence of the pulmonary vasculature. Correlate clinically for evidence of fluid overl oad. 4. Right proximal humeral fracture. ACT 112: Negative or not required by law. Electronically signed by: Lex Ivan M.D. 10/05/2022 1:32 PM
--- NOTE | 2022-10-05 14:02 | Orthopedic Consultation ---
Date of Service October 05, 2022 Assessment & Plan (1) Closed fracture of neck of right humerus: He was seen and examined by Dr. Carey today. He is fairly obtunded but does respond to some commands. He has a humeral neck fracture, minimally displaced, in acceptable alignment. No orthopedic surgery planned at this time. Continue sling to the right upper extremity, and his current sling was adjusted to fit properly. We would recommend keeping the head of the bed elevated some if possible. History of Present Illness Reason for Consultation: .Right humerus fracture Requesting Physician: . Attending Physician: Bret Linares MD . Jonathan is a 37 year old patient admitted to the ICU with DKA/encephalopathy, and has a history of right proximal humerus fracture. He is fairly obtunded today so history obtained entirely from his medical record. He apparently had a fall 4 days ago, slipped while getting out of his tub. He was in the ER on 10/01, had xrays, diagnosed with a proximal humerus fracture and discharged. Allergies Allergy/AdvReac Type Severity Reaction Status Date / Time codeine Allergy Intermediate Rash Verified 10/04/22 21:03 erythromycin base Allergy Unknown HAPPENED Verified 10/04/22 21:03 A SMALL CHILD Home Medications Medication Instructions Recorded Confirmed Type insulin syringe-needle U-100 0.3 #100 ea 07/31/21 09/20/22 Rx mL 31 gauge x 15/64" albuterol sulfate 90 mcg/actuation 2 puff inhalation Q6H PRN 06/07/22 10/04/22 Rx aerosol inhaler shortness of breath or wheezing #8.5 grams acetaminophen 500 mg tablet 1,000 mg PO Q8 PRN Pain 08/19/22 10/04/22 History (Tylenol Extra Strength) gabapentin 100 mg capsule 100 mg PO TID PRN pain #90 caps 08/19/22 10/04/22 Rx blood sugar diagnostic (OneTouch #100 ea 08/22/22 09/20/22 Rx Verio test strips) blood-glucose meter (OneTouch #1 ea 08/22/22 09/20/22 Rx Verio Reflect Meter) lancets 33 gauge (OneTouch Delica #100 ea 08/22/22 09/20/22 Rx Lancets) insulin glargine 100 unit/mL (3 15 unit (0.15 mL) subcut QAM #15 mL 08/25/22 10/04/22 Rx mL) subcutaneous pen (Lantus Solostar U-100 Insulin) insulin lispro 100 unit/mL 20 unit (0.2 mL) subcut TID #15 mL 08/29/22 10/04/22 Rx subcutaneous pen (Humalog KwikPen (U-100) Insulin) oxycodone 5 mg tablet 5 mg PO Q6H PRN pain #20 tabs 10/01/22 10/04/22 Rx ondansetron HCl 4 mg tablet 4 mg PO TID PRN NAUSEA/VOMITING 10/04/22 10/04/22 History Past Med/Surg History Medical History Diabetic peripheral neuropathy DKA (diabetic ketoacidosis) Encounter for examination following treatment at hospital GERD (gastroesophageal reflux disease) MDD (major depressive disorder), recurrent episode, moderate Type I diabetes mellitus Surgical History No significant past surgical history Family History Other Diabetes Social History Smoking Status: Current every day smoker Tobacco Type: Cigarettes Cigarettes Per Day: 1 pack; Second Hand Exposure: No; Do You Dip or Chew Tobacco: No; Hx Alcohol Use: No Hx Substance Use: No Preferred Language: Serbian Communication Ability: Impaired Visual Impairment: Limited Hearing Ability: Normal 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 Beliefs That Will Affect Care: None marital status: Single Current Living Situation: Significant Other Current Living Situation Comment: Lives with girlfreind current occupational status: disabled How many Children do You have: 0 Feels Safe at Home: Yes Childhood Exposure to Second-Hand Smoke: No Diet: diabetic and regular caffeine: Yes during the past year weight has: remained stable Dental Care, Regularly: Yes Physical Activity Frequency: Daily Seatbelt Use: always Sunscreen Use: No Do you think of yourself as: straight/heterosexual Sexual Activity: has been sexually active within the last 12 months Gender Identity: Male Assistive Devices: None Review of Systems All systems reviewed & are unremarkable except as noted in HPI & below. Physical Exam .Patient is fairly obtunded at this time. Responds some to stimuli, such as examination of his right arm. He has a sling on the right arm. Some ecchymosis of the right upper arm. Patient followed commands and able to flex/extend his fingers and wrist. Appears NVI. No deformity of his right arm. Results & Data Results & Data Laboratory Results . Diagnostic Findings . xrays of the right shoulder reviewed and show a minimally displaced humeral neck fracture. PG Care Time/CCT Total # of Minutes Spent Total Time Spent with Patient: Total time spent is greater than 50% in coordination of care (as documented) at patient's floor/unit and/or counseling patient: Coding Level of Care Code 53489 IN/OBS CONSULT LVL 3,45M Diagnoses Closed fracture of neck of right humerus S42.211A Encounter type: initial encounter (1) Closed fracture of neck of right humerus Encounter type: initial encounter Qualified Code(s): S42.211A - Unspecified displaced fracture of surgical neck of right humerus, initial encounter for closed fracture
[2022-10-05 17:39] LABS: Calcium 7.8 mg/dl (8.6-10.3); Magnesium 1.7 mg/dl (1.7-2.4); Potassium 4.2 mmol/L (3.5-5.1)
[2022-10-05 17:44] LABS: Creatinine Clr Calc Pharmacy 88.4 ml/min; Est GFR (African American) 109.4 ml/min; Est GFR (Non-African American) 94.4 ml/min; Phosphorus 3.5 mg/dl (2.5-4.9)
[2022-10-05 17:50] LABS: A calco-baum cmplx NotReported Not Detected (NotDetected); Bact fragilis Not Reported Not Detected (NotDetected); C auris Not Reported Not Detected (NotDetected); Calbicans Not Reported Not Detected (NotDetected); Candida glabrata Not Reported Not Detected (NotDetected); Candida krusei Not Reported Not Detected (NotDetected); Cneoformans/gatti Not Reported Not Detected (NotDetected); Cparapsilosis Not Reported Not Detected (NotDetected); Ctropicalis Not Reported Not Detected (NotDetected); E cloacae compx Not Reported Not Detected (NotDetected); Efaecalis Not Reported Not Detected (NotDetected); Efaecium Not Reported Not Detected (NotDetected); Enterobacterales Not Reported Not Detected (NotDetected); Escherichia coli Not Reported Not Detected (NotDetected); H influenzae Not Reported Not Detected (NotDetected); K aerogenes Not Reported Not Detected (NotDetected); Koxytoca Not Reported Not Detected (NotDetected); Kpneumoniae grp Not Reported Not Detected (NotDetected); Lmonocyt Not Reported Not Detected (NotDetected); N meningitidis Not Reported Not Detected (NotDetected); P aeruginosa Not Reported Not Detected (NotDetected); Proteus spp Not Reported Not Detected (NotDetected); Salmonella spp Not Reported Not Detected (NotDetected); Smarcescens Not Reported Not Detected (NotDetected); Staph lugdunensis Not Reported Not Detected (NotDetected); Staph spp. Not Reported DETECTED (NotDetected); Staphaureus Not Reported Not Detected (NotDetected); Staphepi Not Reported DETECTED (NotDetected); Staphylococcus spp. DETECTED (NotDetected); Stenmaltophilia Not Reported Not Detected (NotDetected); Strep agal(GrpB) Not Reported Not Detected (NotDetected); Strep pneum Not Reported Not Detected (NotDetected); Strep pyog (GrpA) Not Reported Not Detected (NotDetected); Strep spp Not Reported Not Detected (NotDetected); mecAC Resistant Gene DETECTED (NotDetected)
[2022-10-05 18:12] LABS: Staphylococcus epidermidis DETECTED (NotDetected)
[2022-10-05 21:28] LABS: BUN Creatinine Ratio 11.1 (10-20); Calcium 7.8 mg/dl (8.6-10.3); Creatinine Clr Calc Pharmacy 98.2 ml/min; Est GFR (African American) 124.3 ml/min; Est GFR (Non-African American) 107.2 ml/min; Magnesium 1.7 mg/dl (1.7-2.4); Phosphorus 2.1 mg/dl (2.5-4.9); Potassium 3.7 mmol/L (3.5-5.1)
[2022-10-05] MEDS ORDERED: POTASSIUM CHLORIDE CRTAB 20 MEQ TABCR PO STA (21:32)
[2022-10-05] MEDS: MAGNESIUM SULFATE / D5W 1 GM/100 ML BAG IV SCH ×2 (21:39→23:12)
[2022-10-06] MEDS: POTASSIUM CHLORIDE 40 MEQ in D5W AND 1/2NSS 1,000 ML IV SCH (00:34)
[2022-10-06 01:06] LABS: BUN Creatinine Ratio 9.4 (10-20); Calcium 7.9 mg/dl (8.6-10.3); Est GFR (African American) 127.2 ml/min; Est GFR (Non-African American) 109.8 ml/min; Potassium 3.8 mmol/L (3.5-5.1)
[2022-10-06] MEDS: MAGNESIUM SULFATE / D5W 1 GM/100 ML BAG IV SCH (01:13)
[2022-10-06] MEDS ORDERED: LANTUS PER UNIT CHARGE SC SCH (01:30)
[2022-10-06] MEDS ORDERED: INSULIN ASPART PER UNIT CHARGE SC SCH (01:30)
[2022-10-06] MEDS: INSULIN ASPART PER UNIT CHARGE SC SCH ×3 (05:11→11:50)
[2022-10-06 06:23] LABS: Basophils # (auto) 0.02 K/uL (0-0.2); Basophils % (auto) 0.3 %; Eosinophils # (auto) 0.07 K/uL (0-0.50); Hematocrit (blood only) 27.7 % (42.0-52.0); Hemoglobin 9.2 g/dl (14.0-18.0); Immature Granulocytes # (auto) 0.05 K/uL (0.01-0.20); Immature Granulocytes % (auto) 0.7 %; Lymphocytes # (auto) 1.05 K/uL (1.2-3.4); Lymphocytes % (auto) 14.9 %; Mean Corpuscular Hemoglobin 33.7 pg (25.0-34.0); Mean Corpuscular Hgb Conc 33.2 g/dL (32.0-36.0); Mean Corpuscular Volume 101.5 fL (80.0-100.0); Mean Platelet Volume 8.5 fL (9.4-12.4); Monocytes # (auto) 0.59 K/uL (0.11-0.59); Monocytes % (auto) 8.4 %; Neutrophils # (auto) 5.25 K/uL (1.40-6.50); Neutrophils % (auto) 74.7 %; Platelet Count 244 K/uL (130-400); RDW Coefficient of Variation 14.2 % (11.5-14.5); RDW Standard Deviation 53.3 fL (36.4-46.3); Red Blood Count 2.73 M/uL (4.70-6.10); White Blood Count 7.03 K/ul (4.8-10.8)
[2022-10-06] MEDS: KETOROLAC 30 MG/ML VIAL IV PRN (06:31)
[2022-10-06 06:43] LABS: BUN Creatinine Ratio 7.7 (10-20); Calcium 8.1 mg/dl (8.6-10.3); Creatinine Clr Calc Pharmacy 115.1 ml/min; Est GFR (African American) 131.8 ml/min; Est GFR (Non-African American) 113.7 ml/min; Potassium 3.8 mmol/L (3.5-5.1)
[2022-10-06 06:47] LABS: Magnesium 2.3 mg/dl (1.7-2.4); Phosphorus 1.5 mg/dl (2.5-4.9)
[2022-10-06] MEDS ORDERED: POTASSIUM PHOS 3 MMOL/1 ML INFUSION IV STA (06:48)
[2022-10-06] MEDS ORDERED: POTASSIUM PHOSPHATE 18 MMOL in SODIUM CHLORIDE 0.9% 500 ML IV ONE (07:15)
[2022-10-06] MEDS: INSULIN REGULAR 250 UNITS in SODIUM CHLORIDE 0.9% 247.5 ML IV SCH (07:39)
--- NOTE | 2022-10-06 07:45 | Critical Care Progress Note ---
Date of Service October 06, 2022 Assessment & Plan (1) DKA (diabetic ketoacidosis): (2) Closed fracture of neck of right humerus: (3) Major depressive disorder, recurrent severe without psychotic features: (4) Intermittent explosive disorder: (5) High anion gap metabolic acidosis: Plan Reason Critically Ill: 37 YOM admitted for DKA with elevated PCT and encephalopathy. Will be admitted to ICU for continued correction of his acid/base distrubance and glucose levels. Continue searching for other causes of encephalopathy as well as elevated PCT. 24-hour events: The patient has been weaned off insulin. His electrolytes have been replaced. He required a little bit of oxygen yesterday and received 1 dose of Lasix. His oxygen requirement has been weaned off. Recommendations Neuro -metabolic encephalopathy appears to have cleared. Using Toradol for pain control for his shoulder fracture. Cardiac -intermittent tachycardia likely related to relative volume depletion. Corrected this morning. Respiratory -probable aspiration pneumonia. See comments under ID below. Now off oxygen. Follow-up chest x-ray in 2 to 4 weeks with primary care provider GI -diet as tolerated RENAL/LYTES -anion gap is closed. Electrolytes are appropriately repleted. -Sarkar out. ENDO - continue long-acting insulin and sliding scale insulin as needed. Patient has longstanding history of medical noncompliance with frequent readmissions. He has met with diabetic educators on multiple occasions. Its unclear if he is motivated to appropriately manage his diabetes at this point time. HEME -mild anemia. No evidence of bleeding. No indication for transfusion. MSK: Orthopedics consult noted. No surgical intervention planned. Continue sling and pain control. ID -probable pneumonia: Continue Rocephin. Okay to transition to Ceftin. Anticipate 7-day course LINES/IV ACCESS -peripheral IV DVT PROPHYLAXIS - SCDS, Lovenox DISPO: Okay to transfer to the floor. Critical care will sign off. Discussed on multidisciplinary rounds _ Admission and Anticipated Discharge Date Admission Date: October 04, 2022 Subjective Patient seen and examined. EMR reviewed. Discussed with critical care KADY from overnight. The patient is awake alert. His sensorium is back to baseline. He is off his insulin drip. He appears hemodynamically stable. He is having some pain in his shoulder. Review of Systems Review of Systems: All systems reviewed & are unremarkable except as noted in Subjective Physical Exam Constitutional: WD/WN, vitals as above Neck: trachea midline, no thyromegaly Respiratory: normal respiratory effort, lungs clear to auscultation Cardiovascular: RRR, no murmur, no edema Gastrointestinal (Abdomen): normal bowel sounds, soft, nontender, no hepatosplenomegaly Musculoskeletal: Extremities: extremities normal to inspection Skin: no rashes, warm and dry Neurologic: Nonfocal exam Lymphatic: no cervical lymphadenopathy Results & Data Results & Data Vital Signs (Past 12 Hours) Vital Signs Temp Pulse Resp BP Pulse Ox O2 Del Method 10/06/22 07:22 Room Air 10/06/22 06:00 101 H 19 99 10/06/22 05:30 98 H 16 98 10/06/22 05:00 97 H 17 98 10/06/22 05:00 128/79 10/06/22 04:30 105 H 21 78 L 10/06/22 04:00 96 H 17 98 10/06/22 04:00 139/85 10/06/22 03:30 93 H 18 99 10/06/22 03:00 95 H 18 100 10/06/22 03:00 126/80 10/06/22 02:45 91 H 17 100 10/06/22 02:35 98 H 14 100 10/06/22 02:00 96 H 16 100 10/06/22 01:45 94 H 17 100 10/06/22 01:30 94 H 17 100 10/06/22 01:15 94 H 11 L 99 10/06/22 01:00 125/77 10/06/22 03:36 36.5 C 10/06/22 01:00 96 H 17 96 10/06/22 00:45 102 H 20 96 10/06/22 00:30 96 H 17 96 10/06/22 00:15 99 H 21 95 10/06/22 00:00 102 H 20 95 10/06/22 00:00 127/77 10/05/22 23:45 99 H 18 96 10/05/22 23:30 103 H 20 95 10/05/22 23:15 103 H 17 96 10/05/22 23:00 102 H 95 10/05/22 23:00 130/74 10/05/22 22:45 100 H 93 10/05/22 22:30 105 H 93 10/05/22 22:15 105 H 98 10/05/22 22:00 105 H 22 95 06/28/23 22:00 137/82 10/05/22 21:45 111 H 13 97 10/05/22 21:30 107 H 20 96 10/05/22 21:15 106 H 19 96 10/05/22 21:00 107 H 20 95 10/05/22 21:00 128/74 10/05/22 20:45 107 H 21 94 10/05/22 20:30 112 H 2 L 96 10/05/22 20:15 114 H 21 98 10/05/22 22:49 36.8 C 10/05/22 20:00 112 H 19 95 10/05/22 20:00 143/88 H 10/05/22 19:45 105 H 17 97 10/05/22 20:11 36.7 C Critical Care Results & Data Vital Signs (Past 12 Hours) Vital Signs Temp Pulse Resp BP Pulse Ox O2 Del Method 10/06/22 07:22 Room Air 10/06/22 06:00 101 H 19 99 10/06/22 05:30 98 H 16 98 10/06/22 05:00 97 H 17 98 10/06/22 05:00 128/79 10/06/22 04:30 105 H 21 78 L 10/06/22 04:00 96 H 17 98 10/06/22 04:00 139/85 10/06/22 03:30 93 H 18 99 10/06/22 03:00 95 H 18 100 10/06/22 03:00 126/80 10/06/22 02:45 91 H 17 100 10/06/22 02:35 98 H 14 100 10/06/22 02:00 96 H 16 100 10/06/22 01:45 94 H 17 100 10/06/22 01:30 94 H 17 100 10/06/22 01:15 94 H 11 L 99 10/06/22 01:00 125/77 10/06/22 03:36 36.5 C 10/06/22 01:00 96 H 17 96 10/06/22 00:45 102 H 20 96 10/06/22 00:30 96 H 17 96 10/06/22 00:15 99 H 21 95 10/06/22 00:00 102 H 20 95 10/06/22 00:00 127/77 10/05/22 23:45 99 H 18 96 10/05/22 23:30 103 H 20 95 10/05/22 23:15 103 H 17 96 10/05/22 23:00 102 H 95 10/05/22 23:00 130/74 10/05/22 22:45 100 H 93 10/05/22 22:30 105 H 93 10/05/22 22:15 105 H 98 10/05/22 22:00 105 H 22 95 10/05/22 22:00 137/82 10/05/22 21:45 111 H 13 97 10/05/22 21:30 107 H 20 96 10/05/22 21:15 106 H 19 96 10/05/22 21:00 107 H 20 95 10/05/22 21:00 128/74 10/05/22 20:45 107 H 21 94 10/05/22 20:30 112 H 2 L 96 10/05/22 20:15 114 H 21 98 10/05/22 22:49 36.8 C 10/05/22 20:00 112 H 19 95 10/05/22 20:00 143/88 H 10/05/22 19:45 105 H 17 97 10/05/22 20:11 36.7 C Lab & Micro Results (Past 24 Hours) RBC 2.73 M/uL (4.70-6.10) L 10/06/22 WBC 7.03 K/ul (4.8-10.8) 10/06/22 Hgb 9.2 g/dl (14.0-18.0) L 10/06/22 Hct 27.7 % (42.0-52.0) L 10/06/22 MCV 101.5 fL (80.0-100.0) H 10/06/22 MCH 33.7 pg (25.0-34.0) 10/06/22 MCHC 33.2 g/dL (32.0-36.0) 10/06/22 RDW Standard Deviation 53.3 fL (36.4-46.3) H 10/06/22 RDW Coefficient of Variation 14.2 % (11.5-14.5) 10/06/22 Plt Count 244 K/uL (130-400) 10/06/22 MPV 8.5 fL (9.4-12.4) L 10/06/22 Neutrophils (%) (Auto) 74.7 % 10/06/22 Lymphocytes (%) (Auto) 14.9 % 10/06/22 Monocytes # (Auto) 0.59 K/uL (0.11-0.59) 10/06/22 Eosinophils # (Auto) 0.07 K/uL (0-0.50) 10/06/22 Immature Granulocyte % (Auto) 0.7 % 10/06/22 Neutrophils # (Auto) 5.25 K/uL (1.40-6.50) 10/06/22 Lymphocytes # (Auto) 1.05 K/uL (1.2-3.4) L 10/06/22 Monocytes # (Auto) 0.59 K/uL (0.11-0.59) 10/06/22 Eosinophils # (Auto) 0.07 K/uL (0-0.50) 10/06/22 Basophils # (Auto) 0.02 K/uL (0-0.2) 10/06/22 Immature Granulocyte # (Auto) 0.05 K/uL (0.01-0.20) 3 Na 138 mmol/L (136-145) 10/06/22 K 3.8 mmol/L (3.5-5.1) 10/06/22 Cl 104 mmol/L (98-107) 10/06/22 CO2 27 mmol/L (21-32) 10/06/22 Anion Gap 7 (3-11) 10/06/22 BUN 6 mg/dl (6-23) 10/06/22 Creatinine 0.78 mg/dl (0.6-1.4) 10/06/22 Estimated GFR ( Amer) 131.8 ml/min 10/06/22 Estimated GFR (Non-Af Amer) 113.7 ml/min 10/06/22 BUN/Creatinine Ratio 7.7 (10-20) L 10/06/22 Glu 133 mg/dl (70-99(Fasting)) H 10/06/22 Ca 8.1 mg/dl (8.6-10.3) L 10/06/22 Phosphorus Level 1.5 mg/dl (2.5-4.9) L* 10/06/22 Mg 2.3 mg/dl (1.7-2.4) 10/06/22 05:37 Calcium Level 8.1 mg/dl (8.6-10.3) L 10/06/22 05:37 Venous Blood pH 7.37 (7.36-7.41) 10/05/22 20:51 Microbiology 10/04/22 21:06 Aerobic Blood Culture - Preliminary Blood No growth in Aerobic bottle after 24 hours. Anaerobic Blood Culture - Final 10/04/22 20:44 Anaerobic Blood Culture - Preliminary Blood No growth in Anaerobic bottle after 24 hours. Diagnostic Findings (Past 24 Hours) Chest X-Ray 10/05/22 13:05 SINGLE VIEW CHEST CLINICAL HISTORY: Hypoxia FINDINGS: An AP, portable, upright chest radiograph is compared to study dated 10/04/2022. The examination is degraded by portable technique and patient rotation. The cardiomediastinal silhouette is unremarkable. There is prominence of the pulmonary vasculature. There is increasing airspace consolidation in the right upper lobe and at the left lung base. Trace pleural effusions are suspected. No pneumothorax is seen. There is fracture of the right proximal humerus. IMPRESSION: 1. There is increasing airspace consolidation in the right upper lobe and at the left lung base. Correlate clinically for evidence of pneumonia/aspiration pneumonitis. Radiographic follow-up to resolution is recommended. 2. Suspect trace pleural effusions. 3. There is prominence of the pulmonary vasculature. Correlate clinically for e vidence of fluid overload. 4. Right proximal humeral fracture. ACT 112: Negative or not required by law. Electronically signed by: Lex Ivan M.D. 10/05/2022 1:32 PM I & O Totals 24 Hours 10/05/22 10/06/22 10/07/22 06:59 06:59 06:59 Intake Total 5291.065 / 5291.065 6852.512 / 6852.512 Output Total 1740 / 1740 5970 / 5970 Balance 3551.065 / 3551.065 882.512 / 882.512 Cumulative 10/04/22 19:12 thru 10/06/22 06:30 Intake Total 92318.577 Output Total 7710 Balance 4433.577 RT Ventilator Mngmt (Last Documented) Ventilator Ordered Settings Respiratory Rate 19 10/06/22 06:00 Ventilator - PT Measurements Respiratory Rate 19 Coding Level of Care Code 75919 SUB INP/OBS CARE 3/50MIN Diagnoses DKA (diabetic ketoacidosis) E10.10 Diabetes mellitus complication detail: without coma Diabetes mellitus type: type 1 Closed fracture of neck of right humerus S42.211A Encounter type: initial encounter Major depressive disorder, recurrent severe without psychotic features F33.2 Intermittent explosive disorder F63.81 High anion gap metabolic acidosis E87.2 (1) DKA (diabetic ketoacidosis) Diabetes mellitus complication detail: without coma Diabetes mellitus type: type 1 Qualified Code(s): E10.10 - Type 1 diabetes mellitus with ketoacidosis without coma (2) Closed fracture of neck of right humerus Encounter type: initial encounter Qualified Code(s): S42.211A - Unspecified displaced fracture of surgical neck of right humerus, initial encounter for closed fracture
[2022-10-06] MEDS: THIAMINE HCL 200 MG in SODIUM CHLORIDE 0.9% 50 ML IV SCH (08:09)
[2022-10-06] MEDS: cefTRIAXone SODIUM 1,000 MG in DEXTROSE 5% AD-VAN 50 ML IV SCH (08:29)
--- NOTE | 2022-10-06 09:56 | Pharmacy Report ---
Pharmacy Glycemic Short Note 2 - Date of Service October 06, 2022 - Glycemic Short BSG Results (Last 24 hours): 10/05/22 10/05/22 10/05/22 10:14 10:35 10:51 Glucose POC Glucose 135 H 128 H 150 H 10/05/22 10/05/22 10/05/22 11:52 12:20 12:51 Glucose 257 H POC Glucose 297 H 223 H 10/05/22 10/05/22 10/05/22 13:50 14:51 15:53 Glucose POC Glucose 195 H 200 H 226 H 10/05/22 10/05/22 10/05/22 16:35 16:51 17:54 Glucose 197 H POC Glucose 184 H 195 H 10/05/22 10/05/22 10/05/22 18:54 19:52 20:50 Glucose POC Glucose 173 H 154 H 152 H 10/05/22 10/05/22 10/06/22 20:51 22:47 00:27 Glucose 165 H 144 H POC Glucose 147 H 10/06/22 10/06/22 10/06/22 00:51 01:31 02:49 Glucose POC Glucose 140 H 129 H 123 H 10/06/22 10/06/22 10/06/22 05:03 05:37 07:18 Glucose 133 H POC Glucose 114 H 135 H OUTPATIENT ANTIDIABETIC REGIMEN (per med rec): * Lantus 15 units Q AM * Humalog 20 units TID w/ meals ASSESSMENT: 10/06 * AG acidosis cleared yesterday evening and patient was transitioned off insulin drip * SQ basal/bolus regimen ordered at this time as patient's mental status has improved and he is tolerating his diet this AM * Dextrose containing IVFs have been d/c'd 10/05 * Type 1 diabetic admitted for DKA, lactic acidosis, humerus fx, and possible pneumonia. Pt reportedly not taking his insulin +/- infection along with other precipitants/stressors. * Initial labs: GLU 666, AG 37, Bicarb 5, art pH 7.07, Na 131 (tari Na 142), effective serum osmo ~299, 4+ ketones in urine * Fluid resuscitation initiated in ED and started on IV insulin infusion per DKA protocol * Dextrose added to IVFs once BSG dropped to goal range - currently receiving D5 1/2 NS + 40KCl * BSGs currently in mid-100s, insulin infusing at 0.8units/hr * Pt not ready to transition to SQ regimen at this time as AG > 12, Bicarb < 15, and patient's mental status not yet fully improved. * Multiple prior visits reviewed to try to obtain data on insulin requirements, but given pt's short duration of past hospitalizations very little data is available. Compliance with outpt regimen uncertain as well. PLAN FOR INPATIENT GLYCEMIC CONTROL: * Basal insulin: Lantus 15 units every 24 hours * Correctional Insulin: Novolog Correction per scale ACHS and at 0200 tonight Goal Range: Low 110 mg/dL - High 160 mg/dL Correction Factor: 35 mg/dL/unit * Prandial insulin: Per carb ratio of 1 unit per 10 grams CHO consumed
[2022-10-06] MEDS: ENOXAPARIN INJ 40 MG/0.4 ML SYR SQ SCH ×2 (11:02→11:04)
[2022-10-06] MEDS ORDERED: NSS + 20MEQ KCL 20 MEQ/1,000 ML BAG IV SCH (15:00)
--- NOTE | 2022-10-06 15:53 | Discharge Summary ---
Date of Service October 06, 2022 Admission HPI Per Admitting Provider Laron Horton is a 37yo male with history of Type I DM, GERD and MDD presenting with DKA. Patient is somewhat altered - is not answering questions reliably. History obtained primarily through chart review and discussion with ER staff. Patient was seen in the ER on 09/10/22 with complaint of lethargy. He was found to have mild leukocytosis with WBC=11.36, Na of 131, BUN of 34 and Cr of 1.42 from normal baseline of 18 and 0.8, respectively. He was treated with NSS x 2L and Cefepime 2gm IV and discharged home. He was seen in the ER again on 09/20/22 with complaint of leg swelling, left toe pain and vomiting. He reports recently breaking his right foot and not wearing his boot. Found with mildly elevated Lipase of 148. He was treated with NSS x 1L, Zofran and Toradol. He was seen again in the ER on 10/01/22 after falling getting out of the shower. He was found to have a right humeral neck fracture. He was given Oxy-IR and discharged home. Patient returns today feeling ill, weak and thirsty. His blood sugars have been high. He denies pain. No additional complaints at this time although history is limited. Labs as below suggestive of severe DKA. Patient agitated in the ER - pulled his IV out. Patient placed in 4 limb restraints. Left tibial IO placed ER Course: IO placement Cefepime NSS - running Ativan 1mg + 0.5mg Haldol 5mg + 2.5 mg Insulin 6u IV with gtt Principal Diagnosis DKA Discharge Exam pt is awake/ seen briefly by door of room. Patient signed out AMA before full exam could be completed. Discharge Data Allergies Allergy/AdvReac Type Severity Reaction Status Date / Time codeine Allergy Intermediate Rash Verified 10/04/22 21:03 erythromycin base Allergy Unknown HAPPENED Verified 10/04/22 21:03 A SMALL CHILD Consultations 10/04/22 21:47 ED Decision to Admit Stat 10/05/22 00:16 Consult Graduate Fellow Routine 10/05/22 09:42 Consult Orthopedic Surgery Routine Hospital Course (1) DKA (diabetic ketoacidosis): profound acidosis, secondary to dka, unclear of why, does have humeral fracture pre hospital previously history of dka admissions empiric antibiotics, patient with right-sided infiltrate on chest x-ray and some worsening pulm vascular congestion. With hypoxic respiratory failure in the afternoon of 10/05 Lasix was given with improvement. 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 Patient ok to be downgraded. Given his tachycardia, plan was to downgrade patient and hold discharge. Orders placed. Patient will be placed on cefuroxime. (2) Troponin level elevated: elevated troponin without trend and no acs, demand ischemia is cause (3) Closed fracture of neck of right humerus: displaced and impacted fracture, pain control immobilization, ortho consult No surgery planned at this time. (4) Major depressive disorder, recurrent severe without psychotic features: (5) Intermittent explosive disorder: Total Time Total Time Spent Total Time Spent (In Minutes): 20 Discharge Plan Discharge Items Patient Disposition: Against Medical Advice Reason For Visit: DKA Condition on Discharge: Serious Activity: As commented below Activity Comment: Left AMA Non-emergency contact: Primary Care Provider Follow-up/Referrals: Carolyn Story MD [Primary Care Provider] - Pending Studies at Discharge: No Stand-Alone Forms: [facility], Smoking Cessation Medications and DC Order Prescriptions: New cefuroxime axetil 500 mg tablet 500 mg PO BID Qty: 10 0RF Rx Instructions: start first dose on 10/07/22. Complete until finished Continued albuterol sulfate 90 mcg/actuation HFA aerosol inhaler 2 puff inhalation Q6H PRN (Reason: shortness of breath or wheezing) Qty: 8.5 5RF gabapentin 100 mg capsule 100 mg PO TID PRN (Reason: pain) Qty: 90 11RF insulin glargine [Lantus Solostar U-100 Insulin] 100 unit/mL (3 mL) insulin pen 15 unit subcut QAM Qty: 15 4RF insulin lispro [Humalog KwikPen Insulin] 100 unit/mL insulin pen 20 unit subcut TID Qty: 15 3RF (DME) OneTouch Verio test strips Strip See Rx Instructions .Route Qty: 100 1RF Rx Instructions: check blood sugar at least 3 times a day (DME) blood-glucose meter [OneTouch Verio Reflect Meter] Misc See Rx Instructions .Route Qty: 1 0RF Rx Instructions: check blood sugars TID (DME) lancets [OneTouch Delica Lancets] 33 gauge misc See Rx Instructions .Route Qty: 100 3RF Rx Instructions: check blood sugars at least 3 times a day acetaminophen [Tylenol Extra Strength] 500 mg tablet 1,000 mg PO Q8 PRN (Reason: Pain) (DME) insulin syringe-needle U-100 0.3 mL 31 gauge x 15/64" syringe See Rx Instructions .Route Qty: 100 0RF Rx Instructions: As directed ondansetron HCl 4 mg tablet 4 mg PO TID PRN (Reason: NAUSEA/VOMITING) oxycodone 5 mg tablet 5 mg PO Q6H PRN (Reason: pain) Qty: 20 0RF Discharge Orders: Left Against Medical Advice (Routine); Ordered 10/06/22 Ordered By: Rocco Solano Admission Data Admit Date/Time: 10/04/22 22:17 Attending Provider: Rocco Solano Admit Provider: Lara Carey Primary Care Provider: Carolyn Story Other Providers: Lara Carey ; Bernard Galindo ; José Miguel Nguyễn ; Leonor Vides ; Kelsey Kumari ; Raymundo Nielsen ; Divya Sauceda ; Rosio Lee ; Hitesh Carey ; Yodit Gay ; Jong Gomez ; Avery Mustafa ; Avery Kaye Coding Level of Care Code 16902 IN/OBS DISCH 30 MIN/LESS Diagnoses DKA (diabetic ketoacidosis) E10.10 Diabetes mellitus complication detail: without coma Diabetes mellitus type: type 1 Troponin level elevated R77.8 Closed fracture of neck of right humerus S42.211A Encounter type: initial encounter Major depressive disorder, recurrent severe without psychotic features F33.2 Intermittent explosive disorder F63.81 Time Spent (min) 20
[2022-10-06] MEDS ORDERED: ICU ELECTROLYTE REPLACEMENT PROTOCOL SCH (18:00)
[2022-10-07] MEDS ORDERED: INSULIN ASPART PER UNIT CHARGE SC ONE (02:00)
[2022-10-07] MEDS ORDERED: cefUROXime axetil 500 MG TAB PO SCH (09:00)
== END 2022-10-06 16:10 | disposition left against medical advice (07) | DRG 637 ==
LOC: ED 19:20 → SUATTDRO 22:17 → 1E 22:17

== ENCOUNTER 2022-10-11 11:04 | Inpatient (IN) ==
[2022-10-11] MEDS ORDERED: SODIUM CHLORIDE 0.9% 1000ML 2,000 ML IV ONE (11:29)
[2022-10-11 11:44] LABS: Base Excess VBG -23.5 mEq/L; HCO3 VBG 4 mmol/L; Oxygen Saturation VBG 81.5 %; PCO2 VBG 14 mmHg (38-50); PO2 VBG 53 mmHg; pH VBG 7.09 (7.36-7.41)
--- NOTE | 2022-10-11 11:45 | Emergency Department Note ---
Impression & Plan DKA (diabetic ketoacidosis), Type I diabetes mellitus, Closed fracture of neck of right humerus ED Provider Note Provider: Nj James MD DATE OF SERVICE: 10/11/2022 CHIEF COMPLAINT: High blood sugar, fast breathing HISTORY OF PRESENT ILLNESS: Patient is a 37-year-old gentleman history of type 1 diabetes, GERD, mood disorder presenting here today with elevated blood sugars with initial concern for his breathing status. Patient himself answers some questions but it is very fatigued. States his blood sugars elevated today and he took 45 units of fast acting insulin 2 hours ago. States he has not missed any doses of insulin but does not have an insulin pump. States he did not eat anything yet today. Denies pain or nausea. Patient is breathing fairly heavily. Recent admissions and evaluations here in the emergency department as noted. Patient reports some pain in the right upper arm and has a known fracture here. No nausea vomiting or abdominal pain reported or URI symptoms. PAST MEDICAL HISTORY: As noted above MEDICATIONS: Reviewed home medications SOCIAL HISTORY: Smoker PHYSICAL EXAM: GENERAL: alert and oriented somewhat fatigued with tachypnea in bed. Head: normocephalic and atraumatic EYES: No injection, discharge or icterus. PERRL NECK: Trachea midline. Supple. ENT: Mucous membranes pink and moist. LUNGS: Airway patent. No retractions but tachypneic. Breath sounds clear with good air entry bilaterally. HEART: Regular rate and rhythm. No chest wall tenderness ABDOMEN: Soft and non-tender, without guarding or rebound. SKIN: Acyanotic, warm, dry, without rashes EXTREMITIES: Without swelling, tenderness or deformity tenderness and some bruising to the right upper arm. Soft compartments of the right forearm. NEUROLOGICAL: No focal deficits. No aphasia. No facial droop or slurred speech. Sensation to gross touch normal. EK bpm sinus tachycardia. No PVC or PAC. No acute ST segment elevation or depression with a QTc of 459 CONTINUOUS CARDIAC MONITORING: was ordered and showed a heart rate of 110s-130s bpm in sinus tachycardia Patient's laboratory studies and imaging reviewed. Differential includes Infection, dehydration, metabolic abnormality, hypo/hyperglycemia, electrolyte disturbance, anemia, hypoxia, cardiac sources, neurologic, as well as other pathologies. 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 [id number] lab work obtained seems consistent with DKA unfortunately. Unclear of exact etiology states been taking his medicine but is a bit fatigued. Question compliance. Basic blood work was obtained however. X-ray of the right shoulder given his recent fracture and unsplinted nature was obtained here. No evidence of compartment syndrome on exam. No new trauma history reported by the patient and denies significant pain otherwise. No evidence of significant trauma to his head. Given IV fluid. Insulin drip initiated. X-rays reports reviewed with subacute right shoulder fracture and declines sling at this time. Resolving infiltrates on x-ray and no believe this is acutely infected. VBG consistent with DKA with a pH of 7.09. Do not feel antibiotics indicated. Discussed with the patient need to stay. Patient declined sling again. Hospitalist contacted. DIAGNOSIS: DKA, right humeral neck fracture DISPOSITION: Hospitalist will evaluate Patient was agreeable with this plan. Critical Care I have personally spent 32 minutes of critical care time in the direct man agement of this patient. This includes bedside care, interpretation of diagnostic studies, and testing, discussion with consultants, patient, and other required patient management activities. These 32 minutes is in excess of all separately billable procedures. Past Med/Surg History Medical History Diabetic peripheral neuropathy DKA (diabetic ketoacidosis) Encounter for examination following treatment at hospital GERD (gastroesophageal reflux disease) MDD (major depressive disorder), recurrent episode, moderate Type I diabetes mellitus Surgical History No significant past surgical history Family History Other Diabetes Social History Smoking Status: Current every day smoker Tobacco Type: Cigarettes Cigarettes Per Day: 1 pack; Second Hand Exposure: No; Do You Dip or Chew Tobacco: No; Hx Alcohol Use: No Hx Substance Use: No Preferred Language: Yi Communication Ability: Impaired Visual Impairment: Limited Hearing Ability: Normal Continuous Improvement Coordinator Required: No Beliefs That Will Affect Care: None marital status: Single Current Living Situation: Other Current Living Situation Comment: Unknown current occupational status: disabled How many Children do You have: 0 Feels Safe at Home: Declines to Answer Childhood Exposure to Second-Hand Smoke: No Diet: diabetic and regular caffeine: Yes during the past year weight has: remained stable Dental Care, Regularly: Yes Physical Activity Frequency: Daily Seatbelt Use: always Sunscreen Use: No Do you think of yourself as: straight/heterosexual Sexual Activity: has been sexually active within the last 12 months Gender Identity: Male Assistive Devices: None Allergies Allergies Allergy/AdvReac Type Severity Reaction Status Date / Time codeine Allergy Intermediate Rash Verified 10/04/22 21:03 erythromycin base Allergy Unknown HAPPENED Verified 10/04/22 21:03 A SMALL CHILD Home Meds Home Medications Medication Instructions Recorded Confirmed acetaminophen 500 mg tablet 1,000 mg PO Q8 PRN Pain 08/19/22 10/04/22 (Tylenol Extra Strength) ondansetron HCl 4 mg tablet 4 mg PO TID PRN NAUSEA/VOMITING 10/04/22 10/04/22 Previous Rx's Medication Instructions Recorded insulin syringe-needle U-100 0.3 #100 ea 07/31/21 mL 31 gauge x 15/64" albuterol sulfate 90 mcg/actuation 2 puff inhalation Q6H PRN 06/07/22 aerosol inhaler shortness of breath or wheezing #8.5 grams gabapentin 100 mg capsule 100 mg PO TID PRN pain #90 caps 08/19/22 blood sugar diagnostic (OneTouch #100 ea 08/22/22 Verio test strips) blood-glucose meter (OneTouch #1 ea 08/22/22 Verio Reflect Meter) lancets 33 gauge (OneTouch Delica #100 ea 08/22/22 Lancets) insulin glargine 100 unit/mL (3 15 unit (0.15 mL) subcut QAM #15 mL 08/25/22 mL) subcutaneous pen (Lantus Solostar U-100 Insulin) insulin lispro 100 unit/mL 20 unit (0.2 mL) subcut TID #15 mL 08/29/22 subcutaneous pen (Humalog KwikPen (U-100) Insulin) oxycodone 5 mg tablet 5 mg PO Q6H PRN pain #20 tabs 10/01/22 cefuroxime axetil 500 mg tablet 500 mg PO BID #10 tabs 10/06/22 Results & Data (ED) Vital Signs Vital Signs - 24 hr 10/11/22 10:55 10/11/22 11:28 10/11/22 11:53 Temperature 36.4 C Temperature Source Oral Pulse Rate 135 H 126 H Pulse Rate from SpO2 Sensor Respiratory Rate 20 Respiratory Effort / Characteristics Accessory Muscle Use Respiratory Depth Deep Respiratory Pattern Kussmaul Blood Pressure 118/97 Blood Pressure Mean 104 Pulse Oximetry 100 100 Oxygen Delivery Method Room Air Sepsis Recent Fever Within 48 Hours No Sepsis New/Unexplained Change in Mental Status No Sepsis Action Taken by Nursing No Action Required 10/11/22 11:13 10/11/22 11:15 10/11/22 11:25 Temperature Temperature Source Pulse Rate 133 H 132 H 132 H Pulse Rate from SpO2 Sensor 133 H 133 H 133 H Respiratory Rate 25 H 27 H 25 H Respiratory Effort / Characteristics Respiratory Depth Respiratory Pattern Blood Pressure Blood Pressure Mean Pulse Oximetry 100 100 100 Oxygen Delivery Method Sepsis Recent Fever Within 48 Hours Sepsis New/Unexplained Change in Mental Status Sepsis Action Taken by Nursing 10/11/22 11:25 10/11/22 11:30 10/11/22 11:45 Temperature Temperature Source Pulse Rate Pulse Rate from SpO2 Sensor 128 H 129 H Respiratory Rate Respiratory Effort / Characteristics Respiratory Depth Respiratory Pattern Blood Pressure 118/97 Blood Pressure Mean 106 Pulse Oximetry 100 100 Oxygen Delivery Method Sepsis Recent Fever Within 48 Hours Sepsis New/Unexplained Change in Mental Status Sepsis Action Taken by Nursing 10/11/22 12:00 10/11/22 12:15 10/11/22 12:30 Temperature Temperature Source Pulse Rate 122 H 130 H 122 H Pulse Rate from SpO2 Sensor 123 H 76 Respiratory Rate 27 H 17 27 H Respiratory Effort / Characteristics Respiratory Depth Respiratory Pattern Blood Pressure Blood Pressure Mean Pulse Oximetry 100 100 Oxygen Delivery Method Sepsis Recent Fever Within 48 Hours Sepsis New/Unexplained Change in Mental Status Sepsis Action Taken by Nursing Laboratory Data 10/11/22 11:28 10/11/22 11:28 Lab Results 10/11/22 10/11/22 10/11/22 Range/Units 11:09 11:10 11:28 WBC (4.8-10.8) K/ul RBC (4.70-6.10) M/uL Hgb (14.0-18.0) g/dl POC Hgb (14.0-18.0) g/dl Hct (42.0-52.0) % POC Hct (42-52) % MCV (80.0-100.0) fL MCH (25.0-34.0) pg MCHC (32.0-36.0) g/dL RDW Std Deviation (36.4-46.3) fL RDW Coeff of Margarita (11.5-14.5) % Plt Count (130-400) K/uL MPV (9.4-12.4) fL Immature Gran % (Auto) % Neut % (Auto) % Lymph % (Auto) % Mcpherson % (Auto) % Eos % (Auto) % Baso % (Auto) % Neut # (Auto) (1.40-6.50) K/uL Lymph # (Auto) (1.2-3.4) K/uL Mcpherson # (Auto) (0.11-0.59) K/uL Eos # (Auto) (0-0.50) K/uL Baso # (Auto) (0-0.2) K/uL Immature Gran # (Auto) (0.01-0.20) K/uL VBG pH 7.09 L (7.36-7.41) VBG pCO2 14 L (38-50) mmHg VBG pO2 53 mmHg VBG HCO3 4 mmol/L VBG O2 Saturation 81.5 % VBG Base Excess -23.5 mEq/L POC Sodium (135-144) mmol/L Sodium (136-145) mmol/L POC Potassium (3.3-5.0) mmol/L Potassium (3.5-5.1) mmol/L POC Chloride (101-112) mmol/L Chloride (98-107) mmol/L Carbon Dioxide (21-32) mmol/L POC Total CO2 (24-31) mmol/L Anion Gap (3-11) POC Anion Gap (16-25) mmol/L POC BUN (7-18) mg/dl BUN (6-23) mg/dl Creatinine (0.6-1.4) mg/dl POC Creatinine (0.6-1.3) mg/dl Est Cr Clr Drug Dosing ml/min Est GFR ( Amer) ml/min Est GFR (Non-Af Amer) ml/min BUN/Creatinine Ratio (10-20) Glucose (70-99(Fasting)) mg/dl POC Glucose 554 H* 577 H* (70-99) mg/dl POC Glucose (other) (70-99) mg/dl Calcium (8.6-10.3) mg/dl POC Ioniz Calcium Zach (1.12-1.32) mmol/l Phosphorus (2.5-4.9) mg/dl Magnesium (1.7-2.4) mg/dl Total Bilirubin (0.2-1.0) mg/dl AST (13-39) U/L ALT (7-52) U/L Alkaline Phosphatase (34-104) U/L Troponin I High Sens (0-20) pg/ml Total Protein (6.0-8.3) gm/dl Albumin (3.4-5.0) gm/dl Globulin (2.5-4.0) gm/dl Albumin/Globulin Ratio (0.9-2) TSH (0.300-4.500) uIu/ml SARS-CoV-2, RNA, NAAT (NEGATIVE) 10/11/22 10/11/22 10/11/22 Range/Units 11:28 11:28 11:28 WBC 11.88 H (4.8-10.8) K/ul RBC 2.95 L (4.70-6.10) M/uL Hgb 10.0 L (14.0-18.0) g/dl POC Hgb (14.0-18.0) g/dl Hct 31.9 L (42.0-52.0) % POC Hct (42-52) % MCV 108.1 H (80.0-100.0) fL MCH 33.9 (25.0-34.0) pg MCHC 31.3 L (32.0-36.0) g/dL RDW Std Deviation 55.3 H (36.4-46.3) fL RDW Coeff of Margarita 14.0 (11.5-14.5) % Plt Count 475 H (130-400) K/uL MPV 8.5 L (9.4-12.4) fL Immature Gran % (Auto) 3.9 % Neut % (Auto) 75.8 % Lymph % (Auto) 10.1 % Mcpherson % (Auto) 9.7 % Eos % (Auto) 0.1 % Baso % (Auto) 0.4 % Neut # (Auto) 9.01 H (1.40-6.50) K/uL Lymph # (Auto) 1.20 (1.2-3.4) K/uL Mcpherson # (Auto) 1.15 H (0.11-0.59) K/uL Eos # (Auto) 0.01 (0-0.50) K/uL Baso # (Auto) 0.05 (0-0.2) K/uL Immature Gran # (Auto) 0.46 H (0.01-0.20) K/uL VBG pH (7.36-7.41) VBG pCO2 (38-50) mmHg VBG pO2 mmHg VBG HCO3 mmol/L VBG O2 Saturation % VBG Base Excess mEq/L POC Sodium (135-144) mmol/L Sodium 131 L (136-145) mmol/L POC Potassium (3.3-5.0) mmol/L Potassium 4.1 (3.5-5.1) mmol/L POC Chloride (101-112) mmol/L Chloride 94 L (98-107) mmol/L Carbon Dioxide 4 L* (21-32) mmol/L POC Total CO2 (24-31) mmol/L Anion Gap 33 H (3-11) POC Anion Gap (16-25) mmol/L POC BUN (7-18) mg/dl BUN 24 H (6-23) mg/dl Creatinine 1.38 (0.6-1.4) mg/dl POC Creatinine (0.6-1.3) mg/dl Est Cr Clr Drug Dosing 67.8 ml/min Est GFR ( Amer) 74.1 ml/min Est GFR (Non-Af Amer) 63.9 ml/min BUN/Creatinine Ratio 17.4 (10-20) Glucose 550 H* (70-99(Fasting)) mg/dl POC Glucose (70-99) mg/dl POC Glucose (other) (70-99) mg/dl Calcium 8.2 L (8.6-10.3) mg/dl POC Ioniz Calcium Zach (1.12-1.32) mmol/l Phosphorus 5.4 H (2.5-4.9) mg/dl Magnesium 2.5 H (1.7-2.4) mg/dl Total Bilirubin 0.3 (0.2-1.0) mg/dl AST 63 H (13-39) U/L ALT 34 (7-52) U/L Alkaline Phosphatase 221 H (34-104) U/L Troponin I High Sens 9.6 (0-20) pg/ml Total Protein 6.0 (6.0-8.3) gm/dl Albumin 3.3 L (3.4-5.0) gm/dl Globulin 2.7 (2.5-4.0) gm/dl Albumin/Globulin Ratio 1.2 (0.9-2) TSH 1.156 (0.300-4.500) uIu/ml SARS-CoV-2, RNA, NAAT (NEGATIVE) 10/11/22 10/11/22 Range/Units 11:34 11:50 WBC (4.8-10.8) K/ul RBC (4.70-6.10) M/uL Hgb (14.0-18.0) g/dl POC Hgb 11.2 L (14.0-18.0) g/dl Hct (42.0-52.0) % POC Hct 33 L (42-52) % MCV (80.0-100.0) fL MCH (25.0-34.0) pg MCHC (32.0-36.0) g/dL RDW Std Deviation (36.4-46.3) fL RDW Coeff of Margarita (11.5-14.5) % Plt Count (130-400) K/uL MPV (9.4-12.4) fL Immature Gran % (Auto) % Neut % (Auto) % Lymph % (Auto) % Mcpherson % (Auto) % Eos % (Auto) % Baso % (Auto) % Neut # (Auto) (1.40-6.50) K/uL Lymph # (Auto) (1.2-3.4) K/uL Mcpherson # (Auto) (0.11-0.59) K/uL Eos # (Auto) (0-0.50) K/uL Baso # (Auto) (0-0.2) K/uL Immature Gran # (Auto) (0.01-0.20) K/uL VBG pH (7.36-7.41) VBG pCO2 (38-50) mmHg VBG pO2 mmHg VBG HCO3 mmol/L VBG O2 Saturation % VBG Base Excess mEq/L POC Sodium 130 L (135-144) mmol/L Sodium (136-145) mmol/L POC Potassium 4.0 (3.3-5.0) mmol/L Potassium (3.5-5.1) mmol/L POC Chloride 101 (101-112) mmol/L Chloride (98-107) mmol/L Carbon Dioxide (21-32) mmol/L POC Total CO2 6 L* (24-31) mmol/L Anion Gap (3-11) POC Anion Gap 28.0 H (16-25) mmol/L POC BUN 21 H (7-18) mg/dl BUN (6-23) mg/dl Creatinine (0.6-1.4) mg/dl POC Creatinine 1.0 (0.6-1.3) mg/dl Est Cr Clr Drug Dosing ml/min Est GFR ( Amer) ml/min Est GFR (Non-Af Amer) ml/min BUN/Creatinine Ratio (10-20) Glucose (70-99(Fasting)) mg/dl POC Glucose (70-99) mg/dl POC Glucose (other) 553 H* (70-99) mg/dl Calcium (8.6-10.3) mg/dl POC Ioniz Calcium Zach 1.16 (1.12-1.32) mmol/l Phosphorus (2.5-4.9) mg/dl Magnesium (1.7-2.4) mg/dl Total Bilirubin (0.2-1.0) mg/dl AST (13-39) U/L ALT (7-52) U/L Alkaline Phosphatase (34-104) U/L Troponin I High Sens (0-20) pg/ml Total Protein (6.0-8.3) gm/dl Albumin (3.4-5.0) gm/dl Globulin (2.5-4.0) gm/dl Albumin/Globulin Ratio (0.9-2) TSH (0.300-4.500) uIu/ml SARS-CoV-2, RNA, NAAT NEGATIVE (NEGATIVE) Administered Medications Insulin Human Regular 250 (units/ Sodium Chloride) 250 mls @ 2.5 mls/hr IV .Q24H RISSA; Protocol Stop: 11/10/22 11:59 Last Titration: 10/11/22 16:29 Dose: 2.5 unit/hr, 2.5 mls/hr Documented By: DELMI Co-signed By: BPY Titration: 10/11/22 15:28 Dose: 3.1 unit/hr, 3.1 mls/hr Documented By: WS Co-signed By: DMB Titration: 10/11/22 14:59 Dose: 3.9 unit/hr, 3.9 mls/hr Documented By: WS Co-signed By: BUD Admin: 10/11/22 13:00 Dose: 6.5 unit/hr, 6.5 mls/hr Documented By: ARS Co-signed By: MES Potassium Chloride/Dextrose/Sod Cl (D5w And 1/4nss + 20meq Kcl) 20 meq in 1,000 mls @ 200 mls/hr IV .Q5H RISSA; Protocol Stop: 11/10/22 15:59 Last Admin: 10/11/22 16:31 Dose: 200 mls/hr Documented By: DELMI Insulin Aspart (Insulin Aspart Per Unit Charge) 0 units SC ACHS RISSA Stop: 11/10/22 16:29 Last Admin: 10/11/22 17:27 Dose: Not Given Documented By: DELMI Miscellaneous (Pending D5 1/2ns+20meq Kcl Ivf) 1 each N/A Q2H RISSA Stop: 11/10/22 14:52 Last Admin: 10/11/22 17:28 Dose: 1 each Documented By: Admin: 10/11/22 15:46 Dose: 1 each Documented By: DELMI Miscellaneous (Pending 1/2nss+20meq Kcl Ivf) 1 each N/A Q2H RISSA Stop: 11/10/22 14:52 Last Admin: 10/11/22 15:47 Dose: 1 each Documented By: Admin: 10/11/22 15:36 Dose: 1 each Documented By: DELMI Ondansetron HCl (Ondansetron Inj 2 Mg/Ml 2 Ml Vial) 4 mg IV Q6H PRN PRN Reason: Nausea Stop: 11/10/22 14:52 Last Admin: 10/11/22 17:24 Dose: 4 mg Documented By: DELMI Discontinued Medications Sodium Chloride (Nss 1000ml) 2,000 mls @ 999 mls/hr IV .Q2H1M ONE Stop: 10/11/22 13:29 Last Infusion: 10/11/22 15:32 Dose: 0 mls/hr Documented By: Admin: 10/11/22 11:38 Dose: 999 mls/hr Documented By: SIOBHAN Potassium Chloride/Sodium Chloride (1/2 Nss + 20meq Kcl 1000ml) 20 meq in 1,000 mls @ 200 mls/hr IV .Q5H RISSA; Protocol Stop: 11/10/22 12:29 Last Infusion: 10/11/22 15:32 Dose: 0 mls/hr Documented By: Admin: 10/11/22 12:58 Dose: 200 mls/hr Documented By: SIOBHAN Parenteral Electrolytes (Plasma-Lyte A Ph 7.4) 1,000 mls @ 200 mls/hr IV .Q5H RISSA Stop: 11/10/22 14:52 Last Admin: 10/11/22 15:47 Dose: Not Given Documented By: DELMI Miscellaneous (Dka Goal Range 150-250 Mg/Dl) 1 each N/A ONE ONE Stop: 10/11/22 11:54 Last Admin: 10/11/22 14:54 Dose: 1 each Documented By: DELMI Potassium Chloride/Dextrose/Sod Cl (D5w And 1/2nss + 20meq Kcl 1,000 Ml Bag) Confirm Administered Dose 20 meq IV .STK-MED ONE Stop: 10/11/22 12:31 Last Admin: 10/11/22 12:57 Dose: Not Given Documented By: SIOBHAN Imaging Data Radiologist's Impression: Chest X-Ray 10/11/22 11:28 SINGLE VIEW CHEST CLINICAL HISTORY: Generalized weakness. FINDINGS: An AP, portable, upright chest radiograph is compared to study dated 10/05/2022. The cardiomediastinal silhouette is unremarkable. Right upper lobe airspace opacities have almost completely resolved. No large pleural effusion or pneumothorax is identified. Chronic interstitial thickening is similar to previous. A right humeral neck fracture is again noted. IMPRESSION: 1. Right upper lobe opacities have almost completely resolved as compared to 09/27/2022. 2. The lungs are otherwise clear. 3. Right proximal humeral fracture ACT 112: Negative or not required by law. Electronically signed by: Lex Ivan M.D. 10/11/2022 11:48 AM Shoulder X-Ray 10/11/22 11:29 RIGHT SHOULDER 3 VIEWS CLINICAL HISTORY: Right shoulder pain. FINDINGS: 3 views the right shoulder are compared to study dated 10/01/2022. The skeletal structures are well mineralized. Again seen is an impacted and comminuted fracture of the right humeral head and neck. There is surrounding periostitis/calcification. Alignment is similar to previous. No dislocation is seen. No new fracture is identified. Overlying soft tissue edema is observed. Minimal residual airspace opacities are seen in the right upper lobe. IMPRESSION: Unchanged alignment of a subacute/healing right proximal humeral fr acture as above. Electronically signed by: Lex Ivan M.D. 10/11/2022 11:50 AM Discharge Plan Visit Data Chief Complaint: Hyperglycemia Stated Complaint: HYPERGLYCEMIA ED Provider: Nj James Discharge Problem: DKA (diabetic ketoacidosis), Type I diabetes mellitus, Closed fracture of neck of right humerus Patient Disposition: Admitted As Inpatient Discharge Instructions Interventions: ED Discharge Assessment Last Done: 10/11/22 14:54
[2022-10-11 11:47] LABS: iSTAT Hemoglobin 11.2 g/dl (14.0-18.0); iSTAT Ionized Calcium 1.16 mmol/l (1.12-1.32)
--- NOTE | 2022-10-11 11:49 | XRay Report ---
SINGLE VIEW CHEST CLINICAL HISTORY: Generalized weakness. FINDINGS: An AP, portable, upright chest radiograph is compared to study dated 10/05/2022. The cardiom ediastinal silhouette is unremarkable. Right upper lobe airspace opacities have almost completely res olved. No large pleural effusion or pneumothorax is identified. Chronic interstitial thickening is si milar to previous. A right humeral neck fracture is again noted. IMPRESSION: 1. Right upper lobe opacities have almost completely resolved as compared to 09/27/2022. 2. The lungs are otherwise clear. 3. Right proximal humeral fracture ACT 112: Negative or not required by law. Electronically signed by: Lex Ivan M.D. 10/11/2022 11:48 AM
--- NOTE | 2022-10-11 11:51 | XRay Report ---
RIGHT SHOULDER 3 VIEWS CLINICAL HISTORY: Right shoulder pain. FINDINGS: 3 views the right shoulder are compared to study dated 10/01/2022. The skeletal structures a re well mineralized. Again seen is an impacted and comminuted fracture of the right humeral head and neck. There is surrounding periostitis/calcification. Alignment is similar to previous. No dislocatio n is seen. No new fracture is identified. Overlying soft tissue edema is observed. Minimal residual a irspace opacities are seen in the right upper lobe. IMPRESSION: Unchanged alignment of a subacute/healing right proximal humeral fracture as above. Electronically signed by: Lex Ivan M.D. 10/11/2022 11:50 AM
[2022-10-11] MEDS ORDERED: GLUCAGON FOR INJ 1 MG VIAL SQ PRN (11:53)
[2022-10-11] MEDS ORDERED: GLUCOSE 40% GEL 15 GM TUBE PO PRN (11:53)
[2022-10-11] MEDS ORDERED: CARBOHYDRATES FOR HYPOGLYCEMIA PO PRN (11:53)
[2022-10-11] MEDS ORDERED: GLUCOSE 10 TAB/TUBE PO PRN (11:53)
[2022-10-11] MEDS ORDERED: DKA GOAL RANGE 150-250 mg/dl ONE (11:53)
[2022-10-11] MEDS ORDERED: STAT INSULIN DRIP STA (11:53)
[2022-10-11] MEDS ORDERED: DEXTROSE 50% 50 ML SYRINGE IV PRN (11:53)
[2022-10-11 11:58] LABS: Basophils # (auto) 0.05 K/uL (0-0.2); Basophils % (auto) 0.4 %; Eosinophils # (auto) 0.01 K/uL (0-0.50); Eosinophils % (auto) 0.1 %; Hematocrit (blood only) 31.9 % (42.0-52.0); Immature Granulocytes # (auto) 0.46 K/uL (0.01-0.20); Immature Granulocytes % (auto) 3.9 %; Lymphocytes % (auto) 10.1 %; Mean Corpuscular Hemoglobin 33.9 pg (25.0-34.0); Mean Corpuscular Hgb Conc 31.3 g/dL (32.0-36.0); Mean Corpuscular Volume 108.1 fL (80.0-100.0); Mean Platelet Volume 8.5 fL (9.4-12.4); Monocytes # (auto) 1.15 K/uL (0.11-0.59); Monocytes % (auto) 9.7 %; Neutrophils # (auto) 9.01 K/uL (1.40-6.50); Neutrophils % (auto) 75.8 %; Platelet Count 475 K/uL (130-400); RDW Standard Deviation 55.3 fL (36.4-46.3); Red Blood Count 2.95 M/uL (4.70-6.10); White Blood Count 11.88 K/ul (4.8-10.8)
[2022-10-11] MEDS ORDERED: INSULIN REGULAR 250 UNITS in SODIUM CHLORIDE 0.9% 247.5 ML IV SCH (12:00)
[2022-10-11 12:26] LABS: Albumin Globulin Ratio 1.2 (0.9-2); Albumin Level 3.3 gm/dl (3.4-5.0); BUN Creatinine Ratio 17.4 (10-20); Bilirubin,Total 0.3 mg/dl (0.2-1.0); Calcium 8.2 mg/dl (8.6-10.3); Creatinine Clr Calc Pharmacy 67.8 ml/min; Est GFR (African American) 74.1 ml/min; Est GFR (Non-African American) 63.9 ml/min; Globulin 2.7 gm/dl (2.5-4.0); Magnesium 2.5 mg/dl (1.7-2.4); Phosphorus 5.4 mg/dl (2.5-4.9); Potassium 4.1 mmol/L (3.5-5.1); Troponin I High Sensitivity 9.6 pg/ml (0-20)
--- NOTE | 2022-10-11 12:26 | History & Physical Report ---
Date of Service October 11, 2022 Assessment & Plan (1) DKA (diabetic ketoacidosis): Plan: Suspect secondary to non-compliance vs. poor injection technique Admission labs: anion gap 33, bicarb 4, venous ph 7.09, glucose 550 Fluid resuscitation with 2L NSS appears appropriate with current BP normal Start half NSS + KCl 20 meq @ 200ml/hr Once glucose within goal switch to D5 half NSS + KCl 20 meq at same rate Start IV insulin dip with DKA aim 150-250 Can transition to SQ insulin and let patient eat once anion gap closed BMP/Mg/PO/venous ph q4h (2) Type I diabetes mellitus: Plan: HbA1C 10.3 in August, no need to repeat as within 3 months Insulin management as above (3) High anion gap metabolic acidosis: Plan: 2/2 DKA, previous lactate also contributing therefore will get level with next set off labs and trend if elevated (4) Closed fracture of neck of right humerus: Plan: No change in alignment Continue sling Plan VTE Prophylaxis - low risk Diet - NPO pending closure of anion gap Disposition - admit to PCU Admission and Anticipated Discharge Date Admission Date: October 11, 2022 History of Present Illness Chief Complaint: None, "my mum called for an ambulance" Primary Care Provider: Carolyn Story MD Laron Bradford is a 37 year old male with recurrent admissions for diabetic ketoacidosis who presents to the ER with diabetic ketoacidosis. He reports no current problems and it was his mother who called for an ambulance but he feels fine. He thinks he last injected fast acting insulin into his left upper arm with 45 units a few hours prior to admission. He denies needing diabetic education and feels he is doing fine. Coughing during the history taken and when asked about this he denies any nasal congestion, sinus pain, shortness of breath or chest pain. He reports a non-productive cough for a few hours since arriving in the ER. He denies any other respiratory, GI or urinary symptoms of infection. No fever or chills but also feels he is struggling to get warm under multiple blankets. Allergies Allergy/AdvReac Type Severity Reaction Status Date / Time codeine Allergy Intermediate Rash Verified 10/04/22 21:03 erythromycin base Allergy Unknown HAPPENED Verified 10/04/22 21:03 A SMALL CHILD Home Medications Medication Instructions Recorded Confirmed Type insulin syringe-needle U-100 0.3 #100 ea 07/31/21 09/20/22 Rx mL 31 gauge x 15/64" albuterol sulfate 90 mcg/actuation 2 puff inhalation Q6H PRN 06/07/22 10/04/22 Rx aerosol inhaler shortness of breath or wheezing #8.5 grams acetaminophen 500 mg tablet 1,000 mg PO Q8 PRN Pain 08/19/22 10/04/22 History (Tylenol Extra Strength) gabapentin 100 mg capsule 100 mg PO TID PRN pain #90 caps 08/19/22 10/04/22 Rx blood sugar diagnostic (OneTouch #100 ea 08/22/22 09/20/22 Rx Verio test strips) blood-glucose meter (OneTouch #1 ea 08/22/22 09/20/22 Rx Verio Reflect Meter) lancets 33 gauge (OneTouch Delica #100 ea 08/22/22 09/20/22 Rx Lancets) insulin glargine 100 unit/mL (3 15 unit (0.15 mL) subcut QAM #15 mL 08/25/22 10/04/22 Rx mL) subcutaneous pen (Lantus Solostar U-100 Insulin) insulin lispro 100 unit/mL 20 unit (0.2 mL) subcut TID #15 mL 08/29/22 10/04/22 Rx subcutaneous pen (Humalog KwikPen (U-100) Insulin) oxycodone 5 mg tablet 5 mg PO Q6H PRN pain #20 tabs 10/01/22 10/04/22 Rx ondansetron HCl 4 mg tablet 4 mg PO TID PRN NAUSEA/VOMITING 10/04/22 10/04/22 History cefuroxime axetil 500 mg tablet 500 mg PO BID #10 tabs 10/06/22 Rx Past Med/Surg History Medical History Diabetic peripheral neuropathy DKA (diabetic ketoacidosis) Encounter for examination following treatment at hospital GERD (gastroesophageal reflux disease) MDD (major depressive disorder), recurrent episode, moderate Type I diabetes mellitus Surgical History No significant past surgical history Family History Other Diabetes Social History Smoking Status: Current every day smoker Tobacco Type: Cigarettes Cigarettes Per Day: 1 pack; Second Hand Exposure: No; Do You Dip or Chew Tobacco: No; Hx Alcohol Use: No Hx Substance Use: No Preferred Language: Hebrew Communication Ability: Impaired Visual Impairment: Limited Hearing Ability: Normal Pastry Mixer Required: No Beliefs That Will Affect Care: None marital status: Single Current Living Situation: Other Current Living Situation Comment: Unknown current occupational status: disabled How many Children do You have: 0 Feels Safe at Home: Declines to Answer Childhood Exposure to Second-Hand Smoke: No Diet: diabetic and regular caffeine: Yes during the past year weight has: remained stable Dental Care, Regularly: Yes Physical Activity Frequency: Daily Seatbelt Use: always Sunscreen Use: No Do you think of yourself as: straight/heterosexual Sexual Activity: has been sexually active within the last 12 months Gender Identity: Male Assistive Devices: None Review of Systems Review of Systems: All systems reviewed & are unremarkable except as noted in HPI & below Physical Exam Constitutional: well developed and + ill appearing; + not well nourished and no acute distress Eyes: PERRL, conjunctivae normal, anicteric sclerae ENMT: external ear and nose normal, oropharynx normal Respiratory: normal respiratory effort, lungs clear to auscultation + cough Cardiovascular: Rate/Rhythm: regular rhythm and + tachycardic Heart Sounds: no murmur Extremities: normal capillary refill; no calf tenderness and no pedal edema Gastrointestinal (Abdomen): normal bowel sounds, soft, nontender, no hepatosplenomegaly Musculoskeletal: no cyanosis or clubbing, extremities motor strength 5/5 Skin: no rashes, warm and dry Neurologic: moves all extremities and awake; not confused Psychiatric: A+Ox3, euthymic affect Genitourinary: no CVA tenderness Results & Data Results & Data Vital Signs (Past 12 Hours) Vital Signs Temp Pulse Resp BP Pulse Ox O2 Del Method 10/11/22 11:53 126 H 10/11/22 11:28 100 10/11/22 10:55 36.4 C 135 H 20 118/97 100 Room Air Laboratory Results Abnormal lab results 10/11/22 10/11/22 10/11/22 Range/Units 11:09 11:10 11:28 WBC (4.8-10.8) K/ul RBC (4.70-6.10) M/uL Hgb (14.0-18.0) g/dl POC Hgb (14.0-18.0) g/dl Hct (42.0-52.0) % POC Hct (42-52) % MCV (80.0-100.0) fL MCHC (32.0-36.0) g/dL RDW Std Deviation (36.4-46.3) fL Plt Count (130-400) K/uL MPV (9.4-12.4) fL Neut # (Auto) (1.40-6.50) K/uL [place] # (Auto) (0.11-0.59) K/uL Immature Gran # (Auto) (0.01-0.20) K/uL VBG pH 7.09 L (7.36-7.41) VBG pCO2 14 L (38-50) mmHg POC Sodium (135-144) mmol/L Sodium (136-145) mmol/L Chloride (98-107) mmol/L Carbon Dioxide (21-32) mmol/L POC Total CO2 (24-31) mmol/L Anion Gap (3-11) POC Anion Gap (16-25) mmol/L POC BUN (7-18) mg/dl BUN (6-23) mg/dl Glucose (70-99(Fasting)) mg/dl POC Glucose 554 H* 577 H* (70-99) mg/dl POC Glucose (other) (70-99) mg/dl Calcium (8.6-10.3) mg/dl Phosphorus (2.5-4.9) mg/dl Magnesium (1.7-2.4) mg/dl AST (13-39) U/L Alkaline Phosphatase (34-104) U/L Albumin (3.4-5.0) gm/dl 10/11/22 10/11/22 10/11/22 Range/Units 11:28 11:28 11:34 WBC 11.88 H (4.8-10.8) K/ul RBC 2.95 L (4.70-6.10) M/uL Hgb 10.0 L (14.0-18.0) g/dl POC Hgb 11.2 L (14.0-18.0) g/dl Hct 31.9 L (42.0-52.0) % POC Hct 33 L (42-52) % MCV 108.1 H (80.0-100.0) fL MCHC 31.3 L (32.0-36.0) g/dL RDW Std Deviation 55.3 H (36.4-46.3) fL Plt Count 475 H (130-400) K/uL MPV 8.5 L (9.4-12.4) fL Neut # (Auto) 9.01 H (1.40-6.50) K/uL [place] # (Auto) 1.15 H (0.11-0.59) K/uL Immature Gran # (Auto) 0.46 H (0.01-0.20) K/uL VBG pH (7.36-7.41) VBG pCO2 (38-50) mmHg POC Sodium 130 L (135-144) mmol/L Sodium 131 L (136-145) mmol/L Chloride 94 L (98-107) mmol/L Carbon Dioxide 4 L* (21-32) mmol/L POC Total CO2 6 L* (24-31) mmol/L Anion Gap 33 H (3-11) POC Anion Gap 28.0 H (16-25) mmol/L POC BUN 21 H (7-18) mg/dl BUN 24 H (6-23) mg/dl Glucose 550 H* (70-99(Fasting)) mg/dl POC Glucose (70-99) mg/dl POC Glucose (other) 553 H* (70-99) mg/dl Calcium 8.2 L (8.6-10.3) mg/dl Phosphorus 5.4 H (2.5-4.9) mg/dl Magnesium 2.5 H (1.7-2.4) mg/dl AST 63 H (13-39) U/L Alkaline Phosphatase 221 H (34-104) U/L Albumin 3.3 L (3.4-5.0) gm/dl Diagnostic Findings SINGLE VIEW CHEST CLINICAL HISTORY: Generalized weakness. FINDINGS: An AP, portable, upright chest radiograph is compared to study dated 10/05/2022. The cardiomediastinal silhouette is unremarkable. Right upper lobe airspace opacities have almost completely resolved. No large pleural effusion or pneumothorax is identified. Chronic interstitial thickening is similar to previous. A right humeral neck fracture is again noted. IMPRESSION: 1. Right upper lobe opacities have almost completely resolved as compared to 09/27/2022. 2. The lungs are otherwise clear. 3. Right proximal humeral fracture RIGHT SHOULDER 3 VIEWS CLINICAL HISTORY: Right shoulder pain. FINDINGS: 3 views the right shoulder are compared to study dated 10/01/2022. The skeletal structures are well mineralized. Again seen is an impacted and comminuted fracture of the right humeral head and neck. There is surrounding periostitis/calcification. Alignment is similar to previous. No dislocation is seen. No new fracture is identified. Overlying soft tissue edema is observed. Minimal residual airspace opacities are seen in the right upper lobe. IMPRESSION: Unchanged alignment of a subacute/healing right proximal humeral fracture as above. Medications Administered ER Medications Given: NSS 2L bolus Insulin IV drip DKA protocol ECG Rate (beats per minute): 132 Rhythm: sinus tachycardia Findings: no acute ischemic change Comparison ECG Date: from (October 04, 2022) Change: no significant change Code Status & VTE Plan Code Status Full Critical Care Time Critical Care Time: Yes (35) PG Care Time/CCT Total # of Minutes Spent Total Time Spent with Patient: Total time spent is greater than 50% in coordination of care (as documented) at patient's floor/unit and/or counseling patient: Critical Care Time: Yes (35) Coding Level of Care Code 72661 INT INP/OBS CARE 3/75MIN Diagnoses DKA (diabetic ketoacidosis) E10.10 Diabetes mellitus complication detail: without coma Diabetes mellitus type: type 1 Type I diabetes mellitus E10.9 High anion gap metabolic acidosis E87.2 Closed fracture of neck of right humerus S42.211A Encounter type: initial encounter Additional Codes Critical Care Time - Critical Care Time: Yes ([id number]) (1) DKA (diabetic ketoacidosis) Diabetes mellitus complication detail: without coma Diabetes mellitus type: type 1 Qualified Code(s): E10.10 - Type 1 diabetes mellitus with ketoacidosis without coma (4) Closed fracture of neck of right humerus Encounter type: initial encounter Qualified Code(s): S42.211A - Unspecified displaced fracture of surgical neck of right humerus, initial encounter for closed fracture
[2022-10-11] MEDS ORDERED: SODIUM CHLOR 0.45% + 20MEQ KCL 20 MEQ/1,000 ML BAG IV SCH (12:30)
[2022-10-11] MEDS ORDERED: KCL IV ONE (12:30)
[2022-10-11] MEDS ORDERED: [UNRECOGNIZED DRUG - OTHER] IV ONE (12:30)
[2022-10-11] MEDS ORDERED: D5W AND 1/2NSS + 20MEQ KCL 20 MEQ/1,000 ML BAG IV SCH (12:30)
[2022-10-11] MEDS ORDERED: D5W IV ONE (12:30)
[2022-10-11 13:28] LABS: Appearance Urine Clear (Clear); Bacteria Urine Automated Negative (Negative); Bilirubin Urine Negative (Negative); Blood Urine Trace (Negative); Color Urine Yellow; Epithelial Cell Urine Auto 0-5 /lpf (0-5); Glucose Urine UA 3+ (Negative); Ketones Urine 4+ (Negative); Leukocyte Esterase Urine Negative (Negative); Nitrite Urine Negative (Negative); Protein Urine Trace (Negative); RBC Urine Automated 0-4 /hpf (0-4); Specific Gravity Urine 1.021 (1.000-1.030); Urobilinogen Urine Negative (Negative); WBC Urine Automated 0 /hpf (0-5)
[2022-10-11] MEDS ORDERED: ACETAMINOPHEN 325 MG TAB PO PRN (14:53)
[2022-10-11] MEDS ORDERED: ONDANSETRON INJ 2 MG/ML 2 ML VIAL IV PRN (14:53)
[2022-10-11] MEDS ORDERED: PLASMA-LYTE A 1,000 ML IV SCH (14:53)
[2022-10-11] MEDS ORDERED: PHARMACY GLYCEMIC MGMT CONSULT PRN (14:53)
--- NOTE | 2022-10-11 15:27 | Pharmacy Report ---
Pharmacy Glycemic Short Note 2 - Date of Service October 11, 2022 - Glycemic Short BSG Results (Last 24 hours): 10/11/22 10/11/22 10/11/22 11:09 11:10 11:28 Glucose 550 H* POC Glucose 554 H* 577 H* POC Glucose (other) 10/11/22 10/11/22 11:34 14:20 Glucose POC Glucose 251 H POC Glucose (other) 553 H* OUTPATIENT ANTIDIABETIC REGIMEN: * Lantus 15 units SC AM * Humalog 20 units SC AC * HbA1c: 10.3% (08/16/22) ASSESSMENT: * 37 yo M admitted on 10/11/22 secondary to DKA. Pharmacy has been consulted to assist with inpatient glycemic management. Patient is a poorly controlled Type 1 diabetic as an outpatient. Please refer to outpatient regimen and most recent HbA1c above. * Initial labs: POC BSG 577, Serum BSG 550, K 4.1, AG 33, CO2 4, VBG pH 7.09, 4+ ketonuria. * Received 2 L NS and 1 L of 1/2 NS + 20 KCl in the ED. Started on insulin drip at 6.5 units/hr, no bolus. BSG upon transfer to floor was 251 mg/dL. Currently receiving Plasmalyte at 200 mL/hr. * No basal insulin this evening unless acidosis resolves. Plan is to transition of the insulin drip tomorrow morning. PLAN FOR INPATIENT GLYCEMIC CONTROL: * Insulin drip - running at 3.9 units/hr * Should all the following criteria be met, consider giving a dose of Lantus and transitioning off the insulin drip this evening: AG 12 or less, CO2 15 or greater, and VBG pH 7.30 or above. * Consider Lantus dose of 15 units and Novolog goal range 120-150 with CF 35 and CR 10 * Basal insulin - holding for now * * Bolus insulin - per insulin drip calculator for now * * * *
[2022-10-11] MEDS: PENDING 1/2NSS+20mEq KCL IVF SCH ×3 (15:36→21:33)
[2022-10-11] MEDS: PENDING D5 1/2NS+20mEq KCL IVF SCH ×3 (15:46→21:33)
[2022-10-11] MEDS ORDERED: D5W AND 1/4NSS + 20MEQ KCL 20 MEQ/1,000 ML BAG IV SCH (16:00)
[2022-10-11 16:33] LABS: BUN Creatinine Ratio 17.8 (10-20); Calcium 8.1 mg/dl (8.6-10.3); Creatinine Clr Calc Pharmacy 87.4 ml/min; Est GFR (African American) 100.8 ml/min; Magnesium 2.2 mg/dl (1.7-2.4)
[2022-10-11] MEDS: INSULIN ASPART PER UNIT CHARGE SC SCH ×2 (17:27→21:31)
[2022-10-11] MEDS: D5W AND 1/2NSS + 20MEQ KCL 20 MEQ/1,000 ML BAG IV SCH ×2 (18:37→23:41)
--- NOTE | 2022-10-11 19:22 | Communication Note ---
Date of Service: October 11, 2022 Informed patient wishes to leave against medical advice. He does not have capacity from my earlier assessment to leave at this time. Will continually assess this but he does not understand his medical condition enough to weight up the benefits and risks to make the decision to leave. He does not think there is any problem despite him being in DKA which I explained is a life threatening condition. He believes he is treating his diabetes without any problems which is clearly not the case.
[2022-10-11 20:21] LABS: BUN Creatinine Ratio 18.9 (10-20); Calcium 7.5 mg/dl (8.6-10.3); Est GFR (African American) 124.3 ml/min; Est GFR (Non-African American) 107.2 ml/min; Phosphorus 2.7 mg/dl (2.5-4.9); Potassium 4.1 mmol/L (3.5-5.1)
[2022-10-11] MEDS ORDERED: LANTUS PER UNIT CHARGE SQ STA (22:52)
--- NOTE | 2022-10-11 23:07 | Discharge Summary ---
Date of Service October 11, 2022 Admission HPI Per Admitting Provider Laron Bradford is a 37 year old male with recurrent admissions for diabetic ketoacidosis who presents to the ER with diabetic ketoacidosis. He reports no current problems and it was his mother who called for an ambulance but he feels fine. He thinks he last injected fast acting insulin into his left upper arm with 45 units a few hours prior to admission. He denies needing diabetic education and feels he is doing fine. Coughing during the history taken and when asked about this he denies any nasal congestion, sinus pain, shortness of breath or chest pain. He reports a non-productive cough for a few hours since arriving in the ER. He denies any other respiratory, GI or urinary symptoms of infection. No fever or chills but also feels he is struggling to get warm under multiple blankets. Principal Diagnosis Diabetic ketoacidosis Discharge Exam Constitutional well developed; + not well nourished and no acute distress Respiratory normal respiratory effort, lungs clear to auscultation Cardiovascular Rate/Rhythm: regular rhythm and + tachycardic Gastrointestinal (Abdomen) normal bowel sounds, soft, nontender, no hepatosplenomegaly Psychiatric A+Ox3, euthymic affect Discharge Data Allergies Allergy/AdvReac Type Severity Reaction Status Date / Time codeine Allergy Intermediate Rash Verified 10/04/22 21:03 erythromycin base Allergy Unknown HAPPENED Verified 10/04/22 21:03 A SMALL CHILD Consultations 10/11/22 12:03 ED Decision to Admit Stat Hospital Course (1) DKA (diabetic ketoacidosis): Laron Bradford is a 37 year old male who presented to the ER when his mother called for an ambulance, he reported no problems. He was found to be in DKA despite saying he had taken 45 units of fast acting insulin just a few hours prior to arrival. His pH improved from 7.09 to 7.23, anion gap from 33 to 17. At this time he gained capacity to make poor medical decisions and wished to leave against medical advice. He was able to understand, weigh up, come to a decision and communicate that decision regarding discharge against medical advice. He was able to understand the risks of leaving including hypoglycemia, recurrent DKA, coma and . He denied any suicidal ideation. This is consistent with his previous hospitalizations and leaving against medical advice. No adjustments to his home medications were made but I did make him aware of my concern either he is not giving himself the insulin correctly, not giving it at all or the insulin is faulty. He was given 15 units of Lantus prior to discharge as doubtful he had any basal dose currently on board based on continuous insulin dosing required however he was specifically warned about hypoglycemia on discharge. (2) Type I diabetes mellitus: (3) High anion gap metabolic acidosis: (4) Closed fracture of neck of right humerus: Total Time Total Time Spent Total Time Spent (In Minutes): 35 Discharge Plan Discharge Items Patient Disposition: Against Medical Advice Reason For Visit: DIABETIC KETOACIDOSIS Activity: Resume your previous activity Non-emergency contact: Primary Care Provider Follow-up/Referrals: Carolyn Story MD [Primary Care Provider] - Pending Studies at Discharge: Yes (blood cultures) Stand-Alone Forms: My [facility] Image[employer], Smoking Cessation Medications and DC Order Prescriptions: Continued albuterol sulfate 90 mcg/actuation HFA aerosol inhaler 2 puff inhalation Q6H PRN (Reason: shortness of breath or wheezing) Qty: 8.5 5RF gabapentin 100 mg capsule 100 mg PO TID PRN (Reason: pain) Qty: 90 11RF insulin glargine [Lantus Solostar U-100 Insulin] 100 unit/mL (3 mL) insulin pen 15 unit subcut QAM Qty: 15 4RF insulin lispro [Humalog KwikPen Insulin] 100 unit/mL insulin pen 20 unit subcut TID Qty: 15 3RF (DME) OneTouch Verio test strips Strip See Rx Instructions .Route Qty: 100 1RF Rx Instructions: check blood sugar at least 3 times a day (DME) blood-glucose meter [OneTouch Verio Reflect Meter] Misc See Rx Instructions .Route Qty: 1 0RF Rx Instructions: check blood sugars TID (DME) lancets [OneTouch Delica Lancets] 33 gauge misc See Rx Instructions .Route Qty: 100 3RF Rx Instructions: check blood sugars at least 3 times a day acetaminophen [Tylenol Extra Strength] 500 mg tablet 1,000 mg PO Q8 PRN (Reason: Pain) (DME) insulin syringe-needle U-100 0.3 mL 31 gauge x 15/64" syringe See Rx Instructions .Route Qty: 100 0RF Rx Instructions: As directed ondansetron HCl 4 mg tablet 4 mg PO TID PRN (Reason: NAUSEA/VOMITING) cefuroxime axetil 500 mg tablet 500 mg PO BID Qty: 10 0RF Rx Instructions: start first dose on 10/07/22. Complete until finished oxycodone 5 mg tablet 5 mg PO Q6H PRN (Reason: pain) Qty: 20 0RF Discharge Orders: Left Against Medical Advice (Routine); Ordered 10/11/22 Ordered By: Alex Fry Admission Data Admit Date/Time: 10/11/22 12:34 Attending Provider: Alex Ramirez Admit Provider: Alex Fry Primary Care Provider: Carolyn Story Other Providers: Alex Fry Coding Level of Care Code INP/OBS EV SAME DAY LV 3,85MIN Diagnoses DKA (diabetic ketoacidosis) E11.10 Type I diabetes mellitus E10.9 High anion gap metabolic acidosis E87.2 Closed fracture of neck of right humerus S42.211A
[2022-10-12 01:06] LABS: Calcium 7.4 mg/dl (8.6-10.3); Creatinine Clr Calc Pharmacy 108.8 ml/min; Est GFR (African American) 126.6 ml/min; Est GFR (Non-African American) 109.2 ml/min; Magnesium 1.9 mg/dl (1.7-2.4); Phosphorus 1.7 mg/dl (2.5-4.9); Potassium 3.8 mmol/L (3.5-5.1)
--- NOTE | 2022-10-14 05:32 | Electrocardiogram Report ---
Test Reason : Blood Pressure : / mmHG Vent. Rate : 132 BPM Atrial Rate : 132 BPM P-R Int : 140 ms QRS Dur : 086 ms QT Int : 310 ms P-R-T Axes : 076 069 010 degrees QTc Int : 459 ms Sinus tachycardia Nonspecific T wave abnormality When compared with ECG of 04-OCT-2022 19:40, Questionable change in initial forces of Septal leads Confirmed by Rush Laguerre ([id number]) on 10/14/2022 5:32:28 AM Referred By: REFERRED SELF Confirmed By:Rush Laguerre
== END 2022-10-12 00:45 | disposition left against medical advice (07) | DRG 638 ==
LOC: ED 11:04 → 4W 12:34 → SUATTDRO 12:34 → 4W 14:54

== ENCOUNTER 2022-10-18 23:07 | Inpatient (IN) ==
[2022-10-18 23:54] LABS: Basophils # (auto) 0.07 K/uL (0-0.2); Basophils % (auto) 0.6 %; Eosinophils # (auto) 0.08 K/uL (0-0.50); Eosinophils % (auto) 0.7 %; Hemoglobin 8.8 g/dl (14.0-18.0); Immature Granulocytes # (auto) 0.08 K/uL (0.01-0.20); Immature Granulocytes % (auto) 0.7 %; Lymphocytes # (auto) 2.23 K/uL (1.2-3.4); Lymphocytes % (auto) 19.3 %; Mean Corpuscular Hgb Conc 32.6 g/dL (32.0-36.0); Mean Corpuscular Volume 101.1 fL (80.0-100.0); Mean Platelet Volume 8.9 fL (9.4-12.4); Monocytes # (auto) 1.33 K/uL (0.11-0.59); Monocytes % (auto) 11.5 %; Neutrophils # (auto) 7.74 K/uL (1.40-6.50); Neutrophils % (auto) 67.2 %; Platelet Count 423 K/uL (130-400); RDW Coefficient of Variation 14.8 % (11.5-14.5); RDW Standard Deviation 53.8 fL (36.4-46.3); Red Blood Count 2.67 M/uL (4.70-6.10); White Blood Count 11.53 K/ul (4.8-10.8)
[2022-10-19 00:09] LABS: Albumin Globulin Ratio 1.3 (0.9-2); Albumin Level 3.2 gm/dl (3.4-5.0); BUN Creatinine Ratio 22.5 (10-20); Bilirubin,Total 0.3 mg/dl (0.2-1.0); Calcium 8.2 mg/dl (8.6-10.3); Creatinine Clr Calc Pharmacy 121.7 ml/min; Est GFR (African American) 130.4 ml/min; Est GFR (Non-African American) 112.5 ml/min; Globulin 2.5 gm/dl (2.5-4.0); Magnesium 1.8 mg/dl (1.7-2.4); Potassium 3.2 mmol/L (3.5-5.1); Total Protein 5.7 gm/dl (6.0-8.3)
[2022-10-19 00:09] LABS: Appearance Urine Clear (Clear); Bacteria Urine Automated Negative (Negative); Bilirubin Urine Negative (Negative); Blood Urine Negative (Negative); Color Urine Yellow; Glucose Urine UA 3+ (Negative); Ketones Urine Negative (Negative); Leukocyte Esterase Urine Negative (Negative); Nitrite Urine Negative (Negative); Protein Urine Trace (Negative); RBC Urine Automated 0-4 /hpf (0-4); Specific Gravity Urine 1.022 (1.000-1.030); Urobilinogen Urine Negative (Negative)
[2022-10-19 00:16] LABS: Troponin I High Sensitivity 7.3 pg/ml (0-20)
[2022-10-19 00:22] LABS: INR 0.9 (0.9-1.1); Partial Thromboplastin Ratio 0.8; Partial Thromboplastin Time 23.3 Seconds (21.0-31.0); Prothrombin Time 10.3 Seconds (9.0-12.0)
[2022-10-19] MEDS ORDERED: VANCOMYCIN CONSULT ACTIVE PRN (00:57)
[2022-10-19] MEDS ORDERED: VANCOMYCIN HCL 1,500 MG in SODIUM CHLORIDE 0.9% 500 ML IV ONE (00:57)
[2022-10-19] MEDS ORDERED: PIPERACILLIN/TAZOBACTAM 4.5 GM/120 ML BAG IV ONE (00:57)
[2022-10-19] MEDS ORDERED: DAPTOmycin 450 MG in SYRINGE 0 ML IV SCH (01:15)
[2022-10-19] MEDS ORDERED: ACETAMINOPHEN 325 MG TAB PO PRN (01:28)
[2022-10-19] MEDS ORDERED: LOPERAMIDE HCL 2 MG CAP PO STA (01:28)
[2022-10-19] MEDS ORDERED: ONDANSETRON INJ 2 MG/ML 2 ML VIAL IV PRN (01:28)
--- NOTE | 2022-10-19 01:39 | History & Physical Report ---
Date of Service October 19, 2022 Assessment & Plan (1) Open wound of right foot: Plan: 37 year old male with history of Type I DM, GERD and MDD with recurrent admissions for diabetic ketoacidosis here for right diabetic foot ulcer and sepsis Sepsis with R Diabetic Foot Ulcer -WBC 11.53 lactate 2.4 -was previously given augmentin for outpatient use -in ED received zosyn daptomycin NSS 1L -admit to PCU -continue zosyn daptomycin at this time -blood culture pending -continue NSS 125mls/h -consulted wound care -ordered MRI right foot -pain control tylenol toradol -trend cbc Anemia -Hbg 8.8 -continue to monitor DM2 -ordered SSI -placed glycemic consult MDD -not currently on medication, history of SI FENa: NPO Code Status: Full DVT PPX: heparin Dispo: Rosibel Parks D.O. PGY 3, FCM (2) Sepsis: (3) Major depressive disorder, recurrent severe without psychotic features: (4) Type I diabetes mellitus: (5) GERD (gastroesophageal reflux disease): History of Present Illness Chief Complaint: Right Diabetic Foot Ulcer Primary Care Provider: Carolyn Story MD 37 year old male with history of Type I DM, GERD and MDD with recurrent admissions for diabetic ketoacidosis here for right diabetic foot ulcer. Patient has known poor compliance with medications and difficulty with medical follow up. States today he was walking felt his legs were weak they gave out under him. Also notes swelling pain erythema on both legs from toes up to his knees. Has some loss of sensation of his legs. He has a known 'blister' on the base of his right heel. Also describes some weakness of his arms. Denies fever headache nausea SOB chest pain abd pain. He was recently in the ED 10/13 for swollen feet blister on right heel concern broken arm, was treated with zosyn oxycodone NSS bolus had notable lactate 5.8 at that time procal 1.39, noted hypokalemia. Patient was advised admission at that time but declined, left AMA, was ordered Augmentin for outpatient usage Allergies Allergy/AdvReac Type Severity Reaction Status Date / Time codeine Allergy Intermediate Rash Verified 10/13/22 08:10 erythromycin base Allergy Unknown HAPPENED Verified 10/13/22 08:10 A SMALL CHILD Home Medications Medication Instructions Recorded Confirmed Type insulin syringe-needle U-100 0.3 #100 ea 07/31/21 10/13/22 Rx mL 31 gauge x 15/64" albuterol sulfate 90 mcg/actuation 2 puff inhalation Q6H PRN 06/07/22 10/13/22 Rx aerosol inhaler shortness of breath or wheezing #8.5 grams acetaminophen 500 mg tablet 1,000 mg PO Q8 PRN Pain 08/19/22 10/13/22 History (Tylenol Extra Strength) gabapentin 100 mg capsule 100 mg PO TID PRN pain #90 caps 08/19/22 10/13/22 Rx blood sugar diagnostic (OneTouch #100 ea 08/22/22 10/13/22 Rx Verio test strips) blood-glucose meter (OneTouch #1 ea 08/22/22 10/13/22 Rx Verio Reflect Meter) lancets 33 gauge (OneTouch Delica #100 ea 08/22/22 10/13/22 Rx Lancets) insulin lispro 100 unit/mL 20 unit (0.2 mL) subcut TID #15 mL 08/29/22 10/13/22 Rx subcutaneous pen (Humalog KwikPen (U-100) Insulin) ondansetron HCl 4 mg tablet 4 mg PO TID PRN NAUSEA/VOMITING 10/04/22 10/13/22 History amoxicillin 875 mg-potassium 1 tab PO BID #20 tabs 10/13/22 10/13/22 Rx clavulanate 125 mg tablet insulin glargine 100 unit/mL (3 15 unit subcut BID 10/13/22 10/13/22 History mL) subcutaneous pen (Lantus Solostar U-100 Insulin) Past Med/Surg History Medical History Diabetic peripheral neuropathy DKA (diabetic ketoacidosis) Encounter for examination following treatment at hospital GERD (gastroesophageal reflux disease) MDD (major depressive disorder), recurrent episode, moderate Type I diabetes mellitus Surgical History No significant past surgical history Family History Other Diabetes Social History Smoking Status: Current every day smoker Tobacco Type: Cigarettes Cigarettes Per Day: 1 pack; Second Hand Exposure: No; Do You Dip or Chew Tobacco: No; Hx Alcohol Use: No Hx Substance Use: No Preferred Language: Chilean Communication Ability: Effective Visual Impairment: Limited Hearing Ability: Normal Mainframe Architect Required: No Beliefs That Will Affect Care: None marital status: Single Current Living Situation: Other Current Living Situation Comment: Lives with friends current occupational status: disabled How many Children do You have: 0 Other Information That Helps Us Care for You: No Feels Safe at Home: Yes Safety Concerns: Feels Safe At This Time Childhood Exposure to Second-Hand Smoke: No Diet: diabetic and regular caffeine: Yes during the past year weight has: remained stable Dental Care, Regularly: Yes Physical Activity Frequency: Daily Seatbelt Use: always Sunscreen Use: No Do you think of yourself as: straight/heterosexual Sexual Activity: has been sexually active within the last 12 months Gender Identity: Male Assistive Devices: None Review of Systems Review of Systems: All systems reviewed & are unremarkable except as noted in HPI & below Physical Exam Constitutional: cooperative and comfortable Respiratory: normal respiratory effort, lungs clear to auscultation Cardiovascular: Rate/Rhythm: regular rate and regular rhythm difficult to palpate pedal pulses Gastrointestinal (Abdomen): Inspection/Auscultation: abdomen normal to insp ection Percussion/Palpation: abdomen soft; abdomen nontender Skin: 2cm ulcer on right heel. +2 edema with erythema noted on b/l legs up to knees, includes feet. Feet notedly warm Neurologic: decreased sensation on left leg, minimal sensation on right leg to light touch Results & Data Results & Data Vital Signs (Past 12 Hours) Vital Signs Temp Pulse Pulse Resp BP BP Pulse Ox 10/19/22 01:00 111 H 23 118/71 96 10/18/22 23:28 108 H 24 96 10/18/22 23:20 105 H 10/18/22 23:14 36.7 C 108 H 22 116/70 98 O2 Del Method 10/19/22 01:00 Room Air 10/18/22 23:28 Room Air 10/18/22 23:20 10/18/22 23:14 Room Air Laboratory Results Laboratory Results WBC 8.17 K/ul (4.8-10.8) 10/19/22 07:06 RBC 2.64 M/uL (4.70-6.10) L 10/19/22 07:06 Hgb 8.8 g/dl (14.0-18.0) L 10/19/22 07:06 Hct 26.7 % (42.0-52.0) L 10/19/22 07:06 MCV 101.1 fL (80.0-100.0) H 10/19/22 07:06 MCH 33.3 pg (25.0-34.0) 10/19/22 07:06 MCHC 33.0 g/dL (32.0-36.0) 10/19/22 07:06 RDW Std Deviation 53.8 fL (36.4-46.3) H 10/19/22 07:06 RDW Coeff of Margarita 14.6 % (11.5-14.5) H 10/19/22 07:06 Plt Count 385 K/uL (130-400) 10/19/22 07:06 MPV 8.5 fL (9.4-12.4) L 10/19/22 07:06 Immature Gran % (Auto) 0.7 % 10/18/22 23:15 Neut % (Auto) 67.2 % 10/18/22 23:15 Lymph % (Auto) 19.3 % 10/18/22 23:15 [place] % (Auto) 11.5 % 10/18/22 23:15 Eos % (Auto) 0.7 % 10/18/22 23:15 Baso % (Auto) 0.6 % 10/18/22 23:15 Neut # (Auto) 7.74 K/uL (1.40-6.50) H 10/18/22 23:15 Lymph # (Auto) 2.23 K/uL (1.2-3.4) 10/18/22 23:15 [place] # (Auto) 1.33 K/uL (0.11-0.59) H 10/18/22 23:15 Eos # (Auto) 0.08 K/uL (0-0.50) 10/18/22 23:15 Baso # (Auto) 0.07 K/uL (0-0.2) 10/18/22 23:15 Immature Gran # (Auto) 0.08 K/uL (0.01-0.20) 10/18/22 23:15 PT 10.3 Seconds (9.0-12.0) 10/18/22 23:15 INR 0.9 (0.9-1.1) 10/18/22 23:15 APTT 23.3 Seconds (21.0-31.0) 10/18/22 23:15 PTT Ratio 0.8 10/18/22 23:15 Sodium 134 mmol/L (136-145) L 10/18/22 23:15 Potassium 3.2 mmol/L (3.5-5.1) L 10/18/22 23:15 Chloride 95 mmol/L (98-107) L 10/18/22 23:15 Carbon Dioxide 29 mmol/L (21-32) 10/18/22 23:15 Anion Gap 10 (3-11) 10/18/22 23:15 BUN 18 mg/dl (6-23) 10/18/22 23:15 Creatinine 0.80 mg/dl (0.6-1.4) 10/18/22 23:15 Est Cr Clr Drug Dosing 121.7 ml/min 10/18/22 23:15 Est GFR ( Amer) 130.4 ml/min 10/18/22 23:15 Est GFR (Non-Af Amer) 112.5 ml/min 10/18/22 23:15 BUN/Creatinine Ratio 22.5 (10-20) H 10/18/22 23:15 Glucose 124 mg/dl (70-99(Fasting)) H 10/18/22 23:15 POC Glucose 124 mg/dl (70-99) H 10/19/22 01:46 Lactate 2.8 mmol/L (0.4-2.0) H* 10/19/22 04:20 Calcium 8.2 mg/dl (8.6-10.3) L 10/18/22 23:15 Magnesium 1.8 mg/dl (1.7-2.4) 10/18/22 23:15 Total Bilirubin 0.3 mg/dl (0.2-1.0) 10/18/22 23:15 AST 21 U/L (13-39) 10/18/22 23:15 ALT 23 U/L (7-52) 10/18/22 23:15 Alkaline Phosphatase 178 U/L (34-104) H 10/18/22 23:15 Troponin I High Sens 7.3 pg/ml (0-20) 10/18/22 23:15 Total Protein 5.7 gm/dl (6.0-8.3) L 10/18/22 23:15 Albumin 3.2 gm/dl (3.4-5.0) L 10/18/22 23:15 Globulin 2.5 gm/dl (2.5-4.0) 10/18/22 23:15 Albumin/Globulin Ratio 1.3 (0.9-2) 10/18/22 23:15 Procalcitonin 0.20 ng/ml (0-0.5) 10/18/22 23:15 Urine Color Yellow 10/18/22 23:54 Urine Appearance Clear (Clear) 10/18/22 23:54 Urine pH 6.0 (4.5-7.5) 10/18/22 23:54 Ur Specific [place] 1.022 (1.000-1.030) 10/18/22 23:54 Urine Protein Trace (Negative) H 10/18/22 23:54 Urine Glucose (UA) 3+ (Negative) H 10/18/22 23:54 Urine Ketones Negative (Negative) 10/18/22 23:54 Urine Blood Negative (Negative) 10/18/22 23:54 Urine Nitrite Negative (Negative) 10/18/22 23:54 Urine Bilirubin Negative (Negative) 10/18/22 23:54 Urine Urobilinogen Negative (Negative) 10/18/22 23:54 Ur Leukocyte Esterase Negative (Negative) 10/18/22 23:54 Urine WBC (Auto) 1-5 /hpf (0-5) 10/18/22 23:54 Urine RBC (Auto) 0-4 /hpf (0-4) 10/18/22 23:54 U Hyaline Cast (Auto) 1-5 /lpf (0-5) 10/18/22 23:54 U Epithel Cells (Auto) 5-10 /lpf (0-5) H 10/18/22 23:54 Urine Bacteria (Auto) Negative (Negative) 10/18/22 23:54 Nasal Screen MRSA (PCR) Negative (Negative) 10/19/22 03:40 SARS-CoV-2, RNA, NAAT NEGATIVE (NEGATIVE) 10/19/22 00:58 Impressions Chest X-Ray 10/18/22 23:23 XR chest 1V portable HISTORY: Sepsis COMPARISON: Chest 10/13/2022. FINDINGS: No pneumothorax. No pleural effusions. No focal lung consolidations to suggest a pneumonia. No evidence for pulmonary edema. The heart is normal in size. A right humeral neck fracture is again noted. IMPRESSION: 1. No acute process within the chest. 2. Right humeral fracture again noted. ACT 112: Negative or not required by law. Electronically signed by: Derrick Zheng M.D. 10/19/2022 7:20 AM Ankle MRI 10/19/22 02:27 MR ankle RT wo con HISTORY: right heel ulcer TECHNIQUE: Multiplanar multisequence MRI of the right ankle was performed without contrast according to standard departmental protocol. COMPARISON STUDY: Right foot radiograph 06/09/2022. FINDINGS: There is a 2 cm skin ulceration at the posterior heel. No underlying b yogi destruction or abnormal marrow signal intensity to suggest an osteomyelitis. No fracture or dislocation within the right ankle. There is extensive subcutaneous edema within the right ankle and hindfoot. The flexor, extensor, and Achilles tendons are normal in course, caliber, and signal intensity. No loculated fluid collections to suggest an abscess. The medial and lateral stabilizing ligaments are intact. There is a high-grade partial tear involving the peroneus brevis tendon. No significant joint effusion. Cartilage spaces are maintained. The plantar fascia and sinus tarsi are intact. IMPRESSION: 1. A 2 cm skin ulceration at the posterior heel. 2. No bony destruction or abnormal marrow signal intensity to suggest an osteomyelitis. 3. Extensive subcutaneous edema within the right ankle/hindfoot. No loculated fluid collections to suggest an abscess. 4. High-grade partial tear of the peroneus brevis tendon. ACT 112: Negative or not required by law. Electronically signed by: Derrick Zheng M.D. 10/19/2022 6:55 AM Supervising Physician Co-Signing Physician Notes Patient seen and examined in room 206-1, chart reviewed, case discussed with Dr. Waggoner at the time of admission and I agree with the assessment and plan as documented above. Resident Activity Tracking Resident Involvement: Resident Care Provided Care Provided: Adult [facility] Medicine
[2022-10-19] MEDS ORDERED: KETOROLAC TROMETHAMINE 15 MG/ML VIAL IV PRN (01:41)
[2022-10-19] MEDS: SODIUM CHLORIDE 0.9% 1000ML 1,000 ML IV SCH ×5 (01:41→12:11)
[2022-10-19] MEDS ORDERED: GLUCOSE 10 TAB/TUBE PO PRN (03:24)
[2022-10-19] MEDS ORDERED: DEXTROSE 50% 50 ML SYRINGE IV PRN (03:24)
[2022-10-19] MEDS ORDERED: PHARMACY GLYCEMIC MGMT CONSULT PRN (03:24)
[2022-10-19] MEDS ORDERED: GLUCAGON FOR INJ 1 MG VIAL SQ PRN (03:24)
[2022-10-19] MEDS ORDERED: CARBOHYDRATES FOR HYPOGLYCEMIA PO PRN (03:24)
[2022-10-19] MEDS ORDERED: GLUCOSE 40% GEL 15 GM TUBE PO PRN (03:24)
[2022-10-19] MEDS ORDERED: MELATONIN 3 MG TAB PO PRN (04:14)
[2022-10-19] MEDS: PIPERACILLIN/TAZOBACTAM 4.5 GM in DEXTROSE 5% 100 ML IV SCH ×2 (06:08→15:43)
--- NOTE | 2022-10-19 06:58 | Magnetic Resonance Report ---
MR ankle RT wo con HISTORY: right heel ulcer TECHNIQUE: Multiplanar multisequence MRI of the right ankle was performed without contrast according to standard departmental protocol. COMPARISON STUDY: Right foot radiograph 06/09/2022. FINDINGS: There is a 2 cm skin ulceration at the posterior heel. No underlying bony destruction or ab normal marrow signal intensity to suggest an osteomyelitis. No fracture or dislocation within the rig ht ankle. There is extensive subcutaneous edema within the right ankle and hindfoot. The flexor, exte nsor, and Achilles tendons are normal in course, caliber, and signal intensity. No loculated fluid co llections to suggest an abscess. The medial and lateral stabilizing ligaments are intact. There is a high-grade partial tear involving the peroneus brevis tendon. No significant joint effusion. Cartilag e spaces are maintained. The plantar fascia and sinus tarsi are intact. IMPRESSION: 1. A 2 cm skin ulceration at the posterior heel. 2. No bony destruction or abnormal marrow signal intensity to suggest an osteomyelitis. 3. Extensive subcutaneous edema within the right ankle/hindfoot. No loculated fluid collections to almaraz ggest an abscess. 4. High-grade partial tear of the peroneus brevis tendon. ACT 112: Negative or not required by law. Electronically signed by: Derrick Zheng M.D. 10/19/2022 6:55 AM
[2022-10-19] MEDS ORDERED: POTASSIUM CHLORIDE CRTAB 20 MEQ TABCR PO STA (07:16)
--- NOTE | 2022-10-19 07:21 | XRay Report ---
XR chest 1V portable HISTORY: Sepsis COMPARISON: Chest 10/13/2022. FINDINGS: No pneumothorax. No pleural effusions. No focal lung consolidations to suggest a pneumonia. No evidence for pulmonary edema. The heart is normal in size. A right humeral neck fracture is again noted. IMPRESSION: 1. No acute process within the chest. 2. Right humeral fracture again noted. ACT 112: Negative or not required by law. Electronically signed by: Derrick Zheng M.D. 10/19/2022 7:20 AM
--- NOTE | 2022-10-19 07:28 | Hospitalist Progress Note ---
Date of Service October 19, 2022 Assessment & Plan (1) Open wound of right foot: Plan: 37 year old male with history of Type I DM, GERD and MDD with recurrent admissions for diabetic ketoacidosis here for right diabetic foot ulcer and sepsis Sepsis with R Diabetic Foot Ulcer -WBC 11.53 lactate 2.4 -was previously given augmentin for outpatient use -in ED received zosyn daptomycin NSS 1L -admit to PCU -continue zosyn daptomycin at this time -blood culture pending -continue NSS 125mls/h -consulted wound care -ordered MRI right foot -pain control tylenol toradol -trend cbc Anemia -Hbg 8.8 -continue to monitor DM2 -ordered SSI -placed glycemic consult MDD -not currently on medication, history of SI FENa: NPO Code Status: Full DVT PPX: heparin Dispo: PCRosibel Barfield D.O. PGY 3, FCM (2) Type I diabetes mellitus: (3) Sepsis: (4) Major depressive disorder, recurrent severe without psychotic features: (5) GERD (gastroesophageal reflux disease): Admission and Anticipated Discharge Date Admission Date: October 19, 2022 Subjective pt is now speaking to leave AMA, he is sleepy but in no pain, not quite interested in podiatry plan of care Physical Exam Physical Exam: pt is awake and alert right heel is soft with translucent skin and non tender cardiac is regular and lungs are clear Results & Data Results & Data Vital Signs (Past 12 Hours) Vital Signs Temp Pulse Pulse Resp BP BP Pulse Ox 10/19/22 03:26 99.0 F 98 H 18 115/79 98 10/19/22 01:00 111 H 23 118/71 96 10/18/22 23:28 108 H 24 96 10/18/22 23:20 105 H 10/18/22 23:14 98.1 F 108 H 22 116/70 98 O2 Del Method 10/19/22 03:26 Room Air 10/19/22 01:00 Room Air 10/18/22 23:28 Room Air 10/18/22 23:20 10/18/22 23:14 Room Air Laboratory Results reviewed cbc reviewed chemistry PG Care Time/CCT Total # of Minutes Spent Total Time Spent with Patient: Total time spent is greater than 50% in coordination of care (as documented) at patient's floor/unit and/or counseling patient: Coding Level of Care Code 56572 SUB INP/OBS CARE 50MIN Diagnoses Open wound of right foot S91.301A Type I diabetes mellitus E10.9 Sepsis A41.9 Major depressive disorder, recurrent severe without psychotic features F33.2 GERD (gastroesophageal reflux disease) K21.9
[2022-10-19] MEDS ORDERED: INSULIN ASPART PER UNIT CHARGE SC SCH ×2 (07:30→16:30)
[2022-10-19 07:40] LABS: Hematocrit (blood only) 26.7 % (42.0-52.0); Hemoglobin 8.8 g/dl (14.0-18.0); Mean Corpuscular Hemoglobin 33.3 pg (25.0-34.0); Mean Corpuscular Volume 101.1 fL (80.0-100.0); Mean Platelet Volume 8.5 fL (9.4-12.4); Platelet Count 385 K/uL (130-400); RDW Coefficient of Variation 14.6 % (11.5-14.5); RDW Standard Deviation 53.8 fL (36.4-46.3); Red Blood Count 2.64 M/uL (4.70-6.10); White Blood Count 8.17 K/ul (4.8-10.8)
--- NOTE | 2022-10-19 07:48 | Billing Data ---
Date of Service October 19, 2022 Coding Level of Care Code 05577 INT INP/OBS CARE
[2022-10-19 08:16] LABS: BUN Creatinine Ratio 28.6 (10-20); Calcium 7.7 mg/dl (8.6-10.3); Creatinine Clr Calc Pharmacy 155.2 ml/min; Est GFR (African American) 143.9 ml/min; Est GFR (Non-African American) 124.1 ml/min; Potassium 3.7 mmol/L (3.5-5.1)
[2022-10-19] MEDS ORDERED: LANTUS PER UNIT CHARGE SQ SCH ×3 (09:00→21:00)
[2022-10-19] MEDS ORDERED: HEPARIN SOD 5,000 UNIT/0.5 ML VIAL SQ SCH (09:00)
[2022-10-19] MEDS: INSULIN ASPART PER UNIT CHARGE SC SCH ×2 (09:17→13:03)
--- NOTE | 2022-10-19 12:36 | Podiatry Consultation ---
Date of Consultation October 19, 2022 Assessment & Plan (1) Open wound of right foot: (2) Diabetic peripheral neuropathy: (3) Sepsis: Plan - Patient examined and evaluated. MRI/labs reviewed. - Wound does appear superficial in nature, though painful. Would not tolerated bedside sharp debridement. - Discussed best route forward is surgical debridement before discharge. No underlying abscess or osteomyelitis suspected. - Patient is not amenable to surgical debridement at this hospitalization. He would like to attempt wound care and antibiotics. - We discussed that this will only be successful if he has high compliance, including ambulating only in a CAM Boot/immobilizer. - Finally, discussed that if he fails to improve or actively worsens, he will require surgical intervention, ranging from debridement of the wound to potential loss of limb, if neglected. - Continue with wound care by nursing, IV antibiotics. Will continue to follow, though no surgery is planned at this time. History of Present Illness Reason for Consultation: Right heel ulceration and cellulitis Attending Physician: Bret Linares MD History of Present Illness Patient is a long-standing type I diabetic with multiple comorbidities who developed a new onset of a right heel ulceration. Since its presentation over the last couple of weeks, he has noticed increasing redness, swelling, and pain to the right heel. He admits to systemic signs of infection, including general malaise and a sense of feeling ill. He has recently injured his shoulder but denies being laid up, Without any increased pressure on the right heel, or any trauma that would Have led to this right heel ulceration. He does deny any nausea or vomiting fevers chills or shortness of breath at this time. He was recently in the emergency department for this blister but left without recommended treatment. Now, he has this ulceration as well as worsening diabetic concerns. Overall, he states that he is feeling better since being admitted yesterday. Allergies Allergy/AdvReac Type Severity Reaction Status Date / Time codeine Allergy Intermediate Rash Verified 10/13/22 08:10 erythromycin base Allergy Unknown HAPPENED Verified 10/13/22 08:10 A SMALL CHILD Home Medications Medication Instructions Recorded Confirmed Type insulin syringe-needle U-100 0.3 #100 ea 07/31/21 10/13/22 Rx mL 31 gauge x 15/64" albuterol sulfate 90 mcg/actuation 2 puff inhalation Q6H PRN 06/07/22 10/13/22 Rx aerosol inhaler shortness of breath or wheezing #8.5 grams acetaminophen 500 mg tablet 1,000 mg PO Q8 PRN Pain 08/19/22 10/13/22 History (Tylenol Extra Strength) gabapentin 100 mg capsule 100 mg PO TID PRN pain #90 caps 08/19/22 10/13/22 Rx blood sugar diagnostic (OneTouch #100 ea 08/22/22 10/13/22 Rx Verio test strips) blood-glucose meter (OneTouch #1 ea 08/22/22 10/13/22 Rx Verio Reflect Meter) lancets 33 gauge (OneTouch Delica #100 ea 08/22/22 10/13/22 Rx Lancets) insulin lispro 100 unit/mL 20 unit (0.2 mL) subcut TID #15 mL 08/29/22 10/13/22 Rx subcutaneous pen (Humalog KwikPen (U-100) Insulin) ondansetron HCl 4 mg tablet 4 mg PO TID PRN NAUSEA/VOMITING 10/04/22 10/13/22 History amoxicillin 875 mg-potassium 1 tab PO BID #20 tabs 10/13/22 10/13/22 Rx clavulanate 125 mg tablet insulin glargine 100 unit/mL (3 15 unit subcut BID 10/13/22 10/13/22 History mL) subcutaneous pen (Lantus Solostar U-100 Insulin) Patient History Medical History Diabetic peripheral neuropathy DKA (diabetic ketoacidosis) Encounter for examination following treatment at hospital GERD (gastroesophageal reflux disease) MDD (major depressive disorder), recurrent episode, moderate Type I diabetes mellitus Surgical History No significant past surgical history Family History Other Diabetes Social History Smoking Status: Current every day smoker Tobacco Type: Cigarettes Cigarettes Per Day: 1 pack; Second Hand Exposure: No; Do You Dip or Chew Tobacco: No; Hx Alcohol Use: No Hx Substance Use: No Preferred Language: German Communication Ability: Effective Visual Impairment: Limited Hearing Ability: Normal Last Cleaner Required: No Beliefs That Will Affect Care: None marital status: Single Current Living Situation: Other Current Living Situation Comment: Lives with friends current occupational status: disabled How many Children do You have: 0 Other Information That Helps Us Care for You: No Feels Safe at Home: Yes Safety Concerns: Feels Safe At This Time Childhood Exposure to Second-Hand Smoke: No Diet: diabetic and regular caffeine: Yes during the past year weight has: remained stable Dental Care, Regularly: Yes Physical Activity Frequency: Daily Seatbelt Use: always Sunscreen Use: No Do you think of yourself as: straight/heterosexual Sexual Activity: has been sexually active within the last 12 months Gender Identity: Male Assistive Devices: None Review of Systems Review of Systems: All systems reviewed & are unremarkable except as noted in HPI & below Constitutional: + fever, + fatigue, + malaise, + weakness and + daytime sleepiness; no chills Eyes: no eye pain and no problem reported Ear, Nose, Mouth, Throat: no nasal congestion, no nasal discharge and no problem reported Respiratory: no cough and no chest congestion Cardiovascular: + edema; no chest pain, no calf pain and no problem reported Gastrointestinal: no abdominal pain, no nausea and no vomiting Musculoskeletal: + body aches; no limited range of motion and no muscle weakness Integumentary: + skin ulcer, + wounds and + erythema; no dry skin Neurologic: + generalized weakness and + numbness; no behavioral changes Psychiatric: no behavioral changes and no problem reported Endocrine: + fatigue Physical Exam Physical Exam: Right heel focused exam: there is a well circumscribed ulceration noted to the plantar lateral aspect of the right heel. Ulcer measures around 2.5 cm in diameter. Pain is noted on palpation of the posterior heel. Wound margins are well adhered with no probing or undermining of these edges. The lower extremity is diffusely with no purulent drainage appreciated to the ulceration. No active bleeding is noted on gentle curettage. The wound bed is largely granular, the overlying slough is noted as well. No fibrotic tissue noted with no necrosis. Constitutional: well developed and + ill appearing; no acute distress Eyes: PERRL, conjunctivae normal, anicteric sclerae Neck: trachea midline, no thyromegaly Respiratory: normal respiratory effort; no respiratory distress Cardiovascular: Rate/Rhythm: regular rate and regular rhythm Vessels: + abnormal peripheral pulses (DP/PT pulses faint. No advanced trophic changes.) Extremities: + calf tenderness (Distally at the heel/distal Achilles, in the area of the cellulitis) and + pedal edema Gastrointestinal (Abdomen): normal bowel sounds, soft, nontender, no hepatosplenomegaly Musculoskeletal: Extremities: + abnormal strength (Generalized weakness for his age); full ROM of extremities Ankle: no crepitation with ankle ROM Skin: + ulcer (Ulcer with periwound edema and erythema noted to the right heel) Neurologic: + abnormal touch/pain/proprioception (Absent protective sensation to the feet) Psychiatric: Orientation: alert, oriented x 3 and + guarded Results & Data Vital Signs (Past 12 Hours) Vital Signs Temp Pulse Pulse Resp BP Pulse Ox O2 Del Method 10/19/22 11:12 37.0 C 80 17 132/80 96 Room Air 10/19/22 08:00 107 H 10/19/22 07:57 37.1 C 106 H 17 122/75 90 Room Air 10/19/22 03:26 37.2 C 98 H 18 115/79 98 Room Air 10/19/22 01:00 111 H 23 118/71 96 Room Air Diagnostic Findings MRI reveals no abscess formation or extension of the wound passed the dermis. There is no evidence of underlying osteomyelitis with no bone mineral signal intensity changes.
--- NOTE | 2022-10-19 14:14 | Electrocardiogram Report ---
Test Reason : Blood Pressure : / mmHG Vent. Rate : 104 BPM Atrial Rate : 104 BPM P-R Int : 136 ms QRS Dur : 090 ms QT Int : 348 ms P-R-T Axes : 062 035 040 degrees QTc Int : 457 ms Sinus tachycardia Nonspecific T wave abnormality Abnormal ECG When compared with ECG of 13-OCT-2022 06:24, No significant change was found Confirmed by Pan Cummins ([id number]) on 10/19/2022 2:14:29 PM Referred By: REFERRED SELF Confirmed By:Uriah Cummins
--- NOTE | 2022-10-19 15:10 | Pharmacy Report ---
Pharmacy Glycemic Short Note 2 - Date of Service October 19, 2022 - Glycemic Short BSG Results (Last 24 hours): 10/18/22 10/19/22 10/19/22 23:15 00:37 01:05 Glucose 124 H POC Glucose 51 L* 85 10/19/22 10/19/22 10/19/22 01:46 07:06 08:19 Glucose 337 H* POC Glucose 124 H 355 H* 10/19/22 11:10 Glucose POC Glucose 185 H OUTPATIENT ANTIDIABETIC REGIMEN: * Lantus 15 units BID * Humalog 20 units TIDM * A1c: 10.3% 08/16/22 ASSESSMENT: * Patient admitted for open right foot wound. * Patient with recent admissions for DKA with reported non compliance. * Patient did have a low overnight and was given orange juice, evelin crackers and peanut butter and was subsequently hyperglycemic this morning as 355 mg/dL. Lunchtime BSG did down trend significantly after AM NovoLog and lantus. He was ordered and tolerated a diet at lunchtime. * Will proceed with a slightly reduced total daily basal insulin dose given earlier NPO status and hypoglycemia. PLAN FOR INPATIENT GLYCEMIC CONTROL: * Hold outpatient oral diabetes medications * Basal insulin * Lantus 12 units SQ this morning, 10 units this evening * Bolus insulin * NovoLog per scale ACHS or Q6hrs while NPO * Goal Range: Low 110 mg/dL - High 180 mg/dL * Correction Factor: 35 mg/dL/unit * Nutritional / Prandial insulin per carb ratio of 1 unit per 10 grams CHO consumed
--- NOTE | 2022-10-19 16:20 | Discharge Summary ---
Date of Service October 19, 2022 Admission HPI Per Admitting Provider 37 year old male with history of Type I DM, GERD and MDD with recurrent admissions for diabetic ketoacidosis here for right diabetic foot ulcer. Patient has known poor compliance with medications and difficulty with medical follow up. States today he was walking felt his legs were weak they gave out under him. Also notes swelling pain erythema on both legs from toes up to his knees. Has some loss of sensation of his legs. He has a known 'blister' on the base of his right heel. Also describes some weakness of his arms. Denies fever headache nausea SOB chest pain abd pain. He was recently in the ED 10/13 for swollen feet blister on right heel concern broken arm, was treated with zosyn oxycodone NSS bolus had notable lactate 5.8 at that time procal 1.39, noted hypokalemia. Patient was advised admission at that time but declined, left AMA, was ordered Augmentin for outpatient usage Principal Diagnosis diabetic foot infection Discharge Exam please see today's progress note Discharge Data Allergies Allergy/AdvReac Type Severity Reaction Status Date / Time codeine Allergy Intermediate Rash Verified 10/13/22 08:10 erythromycin base Allergy Unknown HAPPENED Verified 10/13/22 08:10 A SMALL CHILD Consultations 10/19/22 01:16 ED Decision to Admit Stat 10/19/22 08:00 Consult Podiatry Routine Ordered Studies 10/19/22 02:27 MRI Ankle [MR ankle RT wo con] Routine Hospital Course (1) Open wound of right foot: 37 year old male with history of Type I DM, GERD and MDD with recurrent admissions for diabetic ketoacidosis here for right diabetic foot ulcer and sepsis patient was against medical vice. He is counseled about leaving with regard to risk of infection loss of limb infection of his heart despite this he wished to leave AMA and did so I offered him to prescribe antibiotics which he refused I sent Augmentin to the pharmacy Sepsis with R Diabetic Foot Ulcer -WBC 11.53 lactate 2.4 -was previously given augmentin for outpatient use -in ED received zosyn daptomycin NSS 1L -admit to PCU -continue zosyn daptomycin at this time -blood culture pending -continue NSS 125mls/h -consulted wound care -ordered MRI right foot -pain control tylenol toradol -trend cbc Anemia -Hbg 8.8 -continue to monitor DM2 -ordered SSI -placed glycemic consult MDD -not currently on medication, history of SI FENa: NPO Code Status: Full DVT PPX: heparin Dispo: Rosibel Parks D.O. PGY 3, FCM (2) Type I diabetes mellitus: (3) Sepsis: (4) Major depressive disorder, recurrent severe without psychotic features: (5) GERD (gastroesophageal reflux disease): Total Time Total Time Spent Total Time Spent (In Minutes): it required greater than 30 minutes to prepare this patient for discharge Discharge Plan Discharge Items Patient Disposition: Against Medical Advice Reason For Visit: DIABETIC FOOT WOUND Activity: Resume your previous activity Non-emergency contact: Primary Care Provider Follow-up/Referrals: Carolyn Story MD [Primary Care Provider] - Terrell Aids Counselor Provider Instructions: prior to the patient signing out we discussed the risk of leaving AMA which include infection loss of limb infection of his heart. I offered to prescribe the patient antibiotics for home which he said he is got antibiotics at home and went pick them up anyway. I told him about the plan of the video editing intern to do surgery on his foot. He said he is not interested in any of t hat he wants to leave. He called a friend and left AGAINST MEDICAL ADVICE Pending Studies at Discharge: No Stand-Alone Forms: [facility] Medications and DC Order Prescriptions: Continued albuterol sulfate 90 mcg/actuation HFA aerosol inhaler 2 puff inhalation Q6H PRN (Reason: shortness of breath or wheezing) Qty: 8.5 5RF gabapentin 100 mg capsule 100 mg PO TID PRN (Reason: pain) Qty: 90 11RF insulin lispro [Humalog KwikPen Insulin] 100 unit/mL insulin pen 20 unit subcut TID Qty: 15 3RF (DME) OneTouch Verio test strips Strip See Rx Instructions .Route Qty: 100 1RF Rx Instructions: check blood sugar at least 3 times a day (DME) blood-glucose meter [OneTouch Verio Reflect Meter] Misc See Rx Instructions .Route Qty: 1 0RF Rx Instructions: check blood sugars TID (DME) lancets [OneTouch Delica Lancets] 33 gauge misc See Rx Instructions .Route Qty: 100 3RF Rx Instructions: check blood sugars at least 3 times a day acetaminophen [Tylenol Extra Strength] 500 mg tablet 1,000 mg PO Q8 PRN (Reason: Pain) (DME) insulin syringe-needle U-100 0.3 mL 31 gauge x 15/64" syringe See Rx Instructions .Route Qty: 100 0RF Rx Instructions: As directed ondansetron HCl 4 mg tablet 4 mg PO TID PRN (Reason: NAUSEA/VOMITING) insulin glargine [Lantus Solostar U-100 Insulin] 100 unit/mL (3 mL) insulin pen 15 unit subcut BID amoxicillin-pot clavulanate 875-125 mg tablet 1 tab PO BID Qty: 20 0RF Admission Data Admit Date/Time: 10/19/22 01:29 Attending Provider: Bret Linares Admit Provider: Rosibel Waggoner Primary Care Provider: Carolyn Story Other Providers: Lara Carey ; Nj Hardy Coding Level of Care Code 06050 INP/OBS DISCH >30 MIN Diagnoses Open wound of right foot S91.301A Type I diabetes mellitus E10.9 Sepsis A41.9 Major depressive disorder, recurrent severe without psychotic features F33.2 GERD (gastroesophageal reflux disease) K21.9
--- NOTE | 2022-10-20 01:46 | Emergency Department Note ---
History of Present Illness General Chief complaint: Foot Injury/Pain Stated complaint: FOOT INFECTION, WEAKNESS Time Seen by Provider: 10/19/22 00:38 History of Present Illness Maximum Pain Intensity: 8 This is a 37-year-old male presenting to the emergency department via EMS for evaluation of weakness and foot infection. Patient is a nonadherent diabetic with known blister on the right heel. Patient left AGAINST MEDICAL ADVICE after being evaluated in this department last week for this blister. The patient now returns as he is concerned that things have worsened. The patient has not had fever at home, but has difficulty ambulating. He did fall today but does not report any significant pain otherwise. The patient rates his discomfort an 8/10. Home Medications Medication Instructions Recorded Confirmed Type insulin syringe-needle U-100 0.3 #100 ea 07/31/21 10/13/22 Rx mL 31 gauge x 15/64" albuterol sulfate 90 mcg/actuation 2 puff inhalation Q6H PRN 06/07/22 10/13/22 Rx aerosol inhaler shortness of breath or wheezing #8.5 grams acetaminophen 500 mg tablet 1,000 mg PO Q8 PRN Pain 08/19/22 10/13/22 History (Tylenol Extra Strength) gabapentin 100 mg capsule 100 mg PO TID PRN pain #90 caps 08/19/22 10/13/22 Rx blood sugar diagnostic (OneTouch #100 ea 08/22/22 10/13/22 Rx Verio test strips) blood-glucose meter (OneTouch #1 ea 08/22/22 10/13/22 Rx Verio Reflect Meter) lancets 33 gauge (OneTouch Delica #100 ea 08/22/22 10/13/22 Rx Lancets) insulin lispro 100 unit/mL 20 unit (0.2 mL) subcut TID #15 mL 08/29/22 10/13/22 Rx subcutaneous pen (Humalog KwikPen (U-100) Insulin) ondansetron HCl 4 mg tablet 4 mg PO TID PRN NAUSEA/VOMITING 10/04/22 10/13/22 History insulin glargine 100 unit/mL (3 15 unit subcut BID 10/13/22 10/13/22 History mL) subcutaneous pen (Lantus Solostar U-100 Insulin) amoxicillin 875 mg-potassium 1 tab PO BID #20 tabs 10/19/22 Rx clavulanate 125 mg tablet Allergies Allergy/AdvReac Type Severity Reaction Status Date / Time codeine Allergy Intermediate Rash Verified 10/13/22 08:10 erythromycin base Allergy Unknown HAPPENED Verified 10/13/22 08:10 A SMALL CHILD Past Med/Surg History Medical History Diabetic peripheral neuropathy DKA (diabetic ketoacidosis) Encounter for examination following treatment at hospital GERD (gastroesophageal reflux disease) MDD (major depressive disorder), recurrent episode, moderate Type I diabetes mellitus Surgical History No significant past surgical history Family History Other Diabetes Social History Smoking Status: Current every day smoker Tobacco Type: Cigarettes Cigarettes Per Day: 1 pack; Second Hand Exposure: No; Do You Dip or Chew Tobacco: No; Hx Alcohol Use: No Hx Substance Use: No Preferred Language: Bahraini Communication Ability: Effective Visual Impairment: Limited Hearing Ability: Normal 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: No Beliefs That Will Affect Care: None marital status: Single Current Living Situation: Other Current Living Situation Comment: Lives with friends current occupational status: disabled How many Children do You have: 0 Feels Safe at Home: Yes Childhood Exposure to Second-Hand Smoke: No Diet: diabetic and regular caffeine: Yes during the past year weight has: remained stable Dental Care, Regularly: Yes Physical Activity Frequency: Daily Seatbelt Use: always Sunscreen Use: No Do you think of yourself as: straight/heterosexual Sexual Activity: has been sexually active within the last 12 months Gender Identity: Male Assistive Devices: None Review of Systems A total of 10 systems reviewed and were otherwise negative Physical Exam VITALS: Vitals are noted on the nurse's note and reviewed by myself. Vital signs stable. GENERAL: White male who is in no acute distress and appears at his baseline. HEAD: Normocephalic atraumatic. HEART: Regular rate and rhythm without murmurs gallops or rubs. LUNGS: Clear to auscultation bilaterally without wheezes, rales or rhonchi. No retractions or accessory muscle use. MUSCULOSKELETAL: There is a wound to the posterior aspect of the right heel consistent with diabetic infection. There is significant amount of surrounding erythema and edema. This is warm on palpation. Areas concerning for cellulitis. NEURO: Patient was alert and oriented to person place and time. CN II through XII grossly intact. Course Administered Medications Discontinued Medications Heparin Sodium (Porcine) (Heparin Sod 5,000 Unit/0.5 Ml Vial) 5,000 units SQ Q12 RISSA Stop: 11/18/22 08:59 Last Admin: 10/19/22 09:18 Dose: Not Given Documented By: SABRINA Sodium Chloride (Nss 1000ml) 1,000 mls @ 999 mls/hr IV .Q1H1M RISSA Stop: 10/19/22 03:04 Last Infusion: 10/19/22 06:05 Dose: 0 mls/hr Documented By: Admin: 10/19/22 05:42 Dose: 999 mls/hr Documented By: Infusion: 10/19/22 05:41 Dose: 0 mls/hr Documented By: Admin: 10/19/22 04:40 Dose: 999 mls/hr Documented By: Infusion: 10/19/22 02:45 Dose: 0 mls/hr Documented By: Admin: 10/19/22 01:41 Dose: 999 mls/hr Documented By: TOM Vancomycin HCl 1,500 mg/ (Sodium Chloride) 530 mls @ 200 mls/hr IV NOW ONE Stop: 10/19/22 03:35 Last Admin: 10/19/22 01:11 Dose: Not Given Documented By: TOM Piperacillin Sod/Tazobactam Sod (Zosyn) 4.5 gm in 120 mls @ 240 mls/hr IV NOW ONE Stop: 10/19/22 01:26 Last Infusion: 10/19/22 04:03 Dose: 0 mls/hr Documented By: Admin: 10/19/22 01:06 Dose: 240 mls/hr Documented By: TOM Daptomycin 450 mg/ Syringe 9 mls @ 4.5 mls/min IV Q24H [facility] [place]; Protocol Stop: 10/21/22 01:14 Last Admin: 10/19/22 01:39 Dose: 4.5 mls/min Documented By: TOM Piperacillin Sod/Tazobactam (Sod 4.5 gm/ Dextrose) 120 mls @ 30 mls/hr IV Q8H RISSA; Protocol Stop: 10/26/22 05:59 Last Admin: 10/19/22 15:43 Dose: Not Given Documented By: Infusion: 10/19/22 10:10 Dose: 0 mls/hr Documented By: Admin: 10/19/22 06:08 Dose: 30 mls/hr Documented By: AN Sodium Chloride (Nss 1000ml) 1,000 mls @ 125 mls/hr IV .Q8H RISSA Stop: 10/19/22 19:23 Last Admin: 10/19/22 12:11 Dose: 125 mls/hr Documented By: Infusion: 10/19/22 11:37 Dose: 125 mls/hr Documented By: Admin: 10/19/22 03:37 Dose: 125 mls/hr Documented By: AN Insulin Aspart (Insulin Aspart Per Unit Charge) 0 units SC Q6 RISSA Stop: 11/18/22 08:29 Last Admin: 10/19/22 13:03 Dose: 5 units Documented By: SABRINA Co-signed By: KALEB Admin: 10/19/22 09:17 Dose: 5 units Documented By: SABRINA Co-signed By: KALEB Insulin Glargine (Lantus Per Unit Charge) 12 units SQ QAM RISSA Stop: 11/18/22 08:59 Last Admin: 10/19/22 09:18 Dose: 12 units Documented By: SABRINA Co-signed By: KALEB Loperamide HCl (Loperamide Hcl 2 Mg Cap) 2 mg PO NOW STA Stop: 10/19/22 01:29 Last Admin: 10/19/22 01:44 Dose: 2 mg Documented By: TOM Potassium Chloride (Potassium Chloride Crtab 20 Meq Tabcr) 40 meq PO NOW STA Stop: 10/19/22 07:17 Last Admin: 10/19/22 09:17 Dose: 40 meq Documented By: SABRINA Medical Decision Making Differential Diagnosis Differential diagnosis includes: Etiologies such as cellulitis, abscess, osteomyelitis, MRSA infection, DVT, necrotizing fasciitis, dermatitis, drug eruption, as well as others were entertained Laboratory Data 10/19/22 07:06 10/19/22 07:06 Lab Results 10/18/22 10/18/22 10/18/22 Range/Units 23:15 23:15 23:15 WBC 11.53 H (4.8-10.8) K/ul RBC 2.67 L (4.70-6.10) M/uL Hgb 8.8 L (14.0-18.0) g/dl Hct 27.0 L (42.0-52.0) % MCV 101.1 H (80.0-100.0) fL MCH 33.0 (25.0-34.0) pg MCHC 32.6 (32.0-36.0) g/dL RDW Std Deviation 53.8 H (36.4-46.3) fL RDW Coeff of Margarita 14.8 H (11.5-14.5) % Plt Count 423 H (130-400) K/uL MPV 8.9 L (9.4-12.4) fL Immature Gran % (Auto) 0.7 % Neut % (Auto) 67.2 % Lymph % (Auto) 19.3 % Preston % (Auto) 11.5 % Eos % (Auto) 0.7 % Baso % (Auto) 0.6 % Neut # (Auto) 7.74 H (1.40-6.50) K/uL Lymph # (Auto) 2.23 (1.2-3.4) K/uL Preston # (Auto) 1.33 H (0.11-0.59) K/uL Eos # (Auto) 0.08 (0-0.50) K/uL Baso # (Auto) 0.07 (0-0.2) K/uL Immature Gran # (Auto) 0.08 (0.01-0.20) K/uL PT 10.3 (9.0-12.0) Seconds INR 0.9 (0.9-1.1) APTT 23.3 (21.0-31.0) Seconds PTT Ratio 0.8 Sodium 134 L (136-145) mmol/L Potassium 3.2 L (3.5-5.1) mmol/L Chloride 95 L (98-107) mmol/L Carbon Dioxide 29 (21-32) mmol/L Anion Gap 10 (3-11) BUN 18 (6-23) mg/dl Creatinine 0.80 (0.6-1.4) mg/dl Est Cr Clr Drug Dosing 121.7 ml/min Est GFR ( Amer) 130.4 ml/min Est GFR (Non-Af Amer) 112.5 ml/min BUN/Creatinine Ratio 22.5 H (10-20) Glucose 124 H (70-99(Fasting)) mg/dl POC Glucose (70-99) mg/dl Lactate (0.4-2.0) mmol/L Calcium 8.2 L (8.6-10.3) mg/dl Magnesium 1.8 (1.7-2.4) mg/dl Total Bilirubin 0.3 (0.2-1.0) mg/dl AST 21 (13-39) U/L ALT 23 (7-52) U/L Alkaline Phosphatase 178 H (34-104) U/L Troponin I High Sens 7.3 (0-20) pg/ml Total Protein 5.7 L (6.0-8.3) gm/dl Albumin 3.2 L (3.4-5.0) gm/dl Globulin 2.5 (2.5-4.0) gm/dl Albumin/Globulin Ratio 1.3 (0.9-2) Procalcitonin (0-0.5) ng/ml Urine Color Urine Appearance (Clear) Urine pH (4.5-7.5) Ur Specific [place] (1.000-1.030) Urine Protein (Negative) Urine Glucose (UA) (Negative) Urine Ketones (Negative) Urine Blood (Negative) Urine Nitrite (Negative) Urine Bilirubin (Negative) Urine Urobilinogen (Negative) Ur Leukocyte Esterase (Negative) Urine WBC (Auto) (0-5) /hpf Urine RBC (Auto) (0-4) /hpf U Hyaline Cast (Auto) (0-5) /lpf U Epithel Cells (Auto) (0-5) /lpf Urine Bacteria (Auto) (Negative) SARS-CoV-2, RNA, NAAT (NEGATIVE) 10/18/22 10/18/22 10/18/22 Range/Units 23:15 23:46 23:54 WBC (4.8-10.8) K/ul RBC (4.70-6.10) M/uL Hgb (14.0-18.0) g/dl Hct (42.0-52.0) % MCV (80.0-100.0) fL MCH (25.0-34.0) pg MCHC (32.0-36.0) g/dL RDW Std Deviation (36.4-46.3) fL RDW Coeff of Margarita (11.5-14.5) % Plt Count (130-400) K/uL MPV (9.4-12.4) fL Immature Gran % (Auto) % Neut % (Auto) % Lymph % (Auto) % Preston % (Auto) % Eos % (Auto) % Baso % (Auto) % Neut # (Auto) (1.40-6.50) K/uL Lymph # (Auto) (1.2-3.4) K/uL Preston # (Auto) (0.11-0.59) K/uL Eos # (Auto) (0-0.50) K/uL Baso # (Auto) (0-0.2) K/uL Immature Gran # (Auto) (0.01-0.20) K/uL PT (9.0-12.0) Seconds INR (0.9-1.1) APTT (21.0-31.0) Seconds PTT Ratio Sodium (136-145) mmol/L Potassium (3.5-5.1) mmol/L Chloride (98-107) mmol/L Carbon Dioxide (21-32) mmol/L Anion Gap (3-11) BUN (6-23) mg/dl Creatinine (0.6-1.4) mg/dl Est Cr Clr Drug Dosing ml/min Est GFR ( Amer) ml/min Est GFR (Non-Af Amer) ml/min BUN/Creatinine Ratio (10-20) Glucose (70-99(Fasting)) mg/dl POC Glucose (70-99) mg/dl Lactate 2.4 H* (0.4-2.0) mmol/L Calcium (8.6-10.3) mg/dl Magnesium (1.7-2.4) mg/dl Total Bilirubin (0.2-1.0) mg/dl AST (13-39) U/L ALT (7-52) U/L Alkaline Phosphatase (34-104) U/L Troponin I High Sens (0-20) pg/ml Total Protein (6.0-8.3) gm/dl Albumin (3.4-5.0) gm/dl Globulin (2.5-4.0) gm/dl Albumin/Globulin Ratio (0.9-2) Procalcitonin 0.20 (0-0.5) ng/ml Urine Color Yellow Urine Appearance Clear (Clear) Urine pH 6.0 (4.5-7.5) Ur Specific [place] 1.022 (1.000-1.030) Urine Protein Trace H (Negative) Urine Glucose (UA) 3+ H (Negative) Urine Ketones Negative (Negative) Urine Blood Negative (Negative) Urine Nitrite Negative (Negative) Urine Bilirubin Negative (Negative) Urine Urobilinogen Negative (Negative) Ur Leukocyte Esterase Negative (Negative) Urine WBC (Auto) 1-5 (0-5) /hpf Urine RBC (Auto) 0-4 (0-4) /hpf U Hyaline Cast (Auto) 1-5 (0-5) /lpf U Epithel Cells (Auto) 5-10 H (0-5) /lpf Urine Bacteria (Auto) Negative (Negative) SARS-CoV-2, RNA, NAAT (NEGATIVE) 10/19/22 10/19/22 10/19/22 Range/Units 00:37 00:58 01:05 WBC (4.8-10.8) K/ul RBC (4.70-6.10) M/uL Hgb (14.0-18.0) g/dl Hct (42.0-52.0) % MCV (80.0-100.0) fL MCH (25.0-34.0) pg MCHC (32.0-36.0) g/dL RDW Std Deviation (36.4-46.3) fL RDW Coeff of Margarita (11.5-14.5) % Plt Count (130-400) K/uL MPV (9.4-12.4) fL Immature Gran % (Auto) % Neut % (Auto) % Lymph % (Auto) % Preston % (Auto) % Eos % (Auto) % Baso % (Auto) % Neut # (Auto) (1.40-6.50) K/uL Lymph # (Auto) (1.2-3.4) K/uL Preston # (Auto) (0.11-0.59) K/uL Eos # (Auto) (0-0.50) K/uL Baso # (Auto) (0-0.2) K/uL Immature Gran # (Auto) (0.01-0.20) K/uL PT (9.0-12.0) Seconds INR (0.9-1.1) APTT (21.0-31.0) Seconds PTT Ratio Sodium (136-145) mmol/L Potassium (3.5-5.1) mmol/L Chloride (98-107) mmol/L Carbon Dioxide (21-32) mmol/L Anion Gap (3-11) BUN (6-23) mg/dl Creatinine (0.6-1.4) mg/dl Est Cr Clr Drug Dosing ml/min Est GFR ( Amer) ml/min Est GFR (Non-Af Amer) ml/min BUN/Creatinine Ratio (10-20) Glucose (70-99(Fasting)) mg/dl POC Glucose 51 L* 85 (70-99) mg/dl Lactate (0.4-2.0) mmol/L Calcium (8.6-10.3) mg/dl Magnesium (1.7-2.4) mg/dl Total Bilirubin (0.2-1.0) mg/dl AST (13-39) U/L ALT (7-52) U/L Alkaline Phosphatase (34-104) U/L Troponin I High Sens (0-20) pg/ml Total Protein (6.0-8.3) gm/dl Albumin (3.4-5.0) gm/dl Globulin (2.5-4.0) gm/dl Albumin/Globulin Ratio (0.9-2) Procalcitonin (0-0.5) ng/ml Urine Color Urine Appearance (Clear) Urine pH (4.5-7.5) Ur Specific [place] (1.000-1.030) Urine Protein (Negative) Urine Glucose (UA) (Negative) Urine Ketones (Negative) Urine Blood (Negative) Urine Nitrite (Negative) Urine Bilirubin (Negative) Urine Urobilinogen (Negative) Ur Leukocyte Esterase (Negative) Urine WBC (Auto) (0-5) /hpf Urine RBC (Auto) (0-4) /hpf U Hyaline Cast (Auto) (0-5) /lpf U Epithel Cells (Auto) (0-5) /lpf Urine Bacteria (Auto) (Negative) SARS-CoV-2, RNA, NAAT NEGATIVE (NEGATIVE) MDM Narrative Physical exam and history were performed. Nursing notes, EMR, and Medication List were personally reviewed. No social concerns were identified as barriers to patients care. Patient appears to have diabetic wound infection on the right foot. Patient is tachycardic on arrival. IV access was established and labs were obtained. He was given a sepsis fluid bolus as his lactic acid did return positive. Patient was started on daptomycin and Zosyn here in the ER. Patient's blood work is as above and was reviewed. He does not have a significantly elevated white blood cell count or gross anemia. Transaminases are nondiagnostic. Again his lactic is elevated at 2.4. Glucose 124. I did have a clear and gunjan conversation with the patient. He is medically nonadherent and often signed out AGAINST MEDICAL ADVICE. Patient assured me that he was willing to stay in the hospital. He may need orthopedic evaluation for his wound, and I am not confident that discharge home will improve his symptoms. The patient stated that he was willing to stay. Case was discussed with the on-call hospitalist team, who agreed to evaluate the patient here in the ER. Please see their dictation for further patient course, plan, and disposition. The chart was completed utilizing [employer] Speech Voice Recognition Software. Grammatical errors, random word insertions, pronoun errors, and incomplete sentences are an occasional consequence of this system due to software limita tions, ambient noise, and hardware issues. Any formal questions or concerns about the content, text, or information contained within the body of this dictation should be directly addressed to the provider for clarification. . Impression & Plan Open wound of right foot, Sepsis Discharge Plan Visit Data Chief Complaint: Foot Injury/Pain Stated Complaint: FOOT INFECTION, WEAKNESS ED Provider: Tamanna Watters ED Midlevel Provider: Hitesh Bass Discharge Problem: Open wound of right foot, Sepsis Patient Disposition: Admitted As Inpatient Discharge Instructions Interventions: ED Discharge Assessment Last Done: 10/19/22 02:13
[2022-10-20] MEDS ORDERED: DAPTOmycin 450 MG in SYRINGE 0 ML IV SCH (02:00)
== END 2022-10-19 16:31 | disposition left against medical advice (07) | DRG 872 ==
LOC: ED 23:07 → 2E 10-19 01:29 → SUATTDRO 10-19 01:29 → 2E 10-19 02:13

== ENCOUNTER 2022-11-24 22:09 | Inpatient (IN) ==
[2022-11-24] MEDS ORDERED: SODIUM CHLORIDE 0.9% 1000ML 2,000 ML IV ONE (22:56)
[2022-11-24] MEDS ORDERED: DAPTOmycin 450 MG in SYRINGE 0 ML IV ONE (23:00)
[2022-11-24] MEDS ORDERED: PIPERACILLIN/TAZOBACTAM 4.5 GM/120 ML BAG IV ONE (23:00)
[2022-11-24 23:31] LABS: Base Excess VBG -0.3 mEq/L; HCO3 VBG 24 mmol/L; Oxygen Saturation VBG 79.9 %; PCO2 VBG 38 mmHg (38-50); PO2 VBG 52 mmHg; pH VBG 7.41 (7.36-7.41)
[2022-11-24 23:37] LABS: Appearance Urine Clear (Clear); Bilirubin Urine Negative (Negative); Blood Urine Negative (Negative); Color Urine Yellow; Glucose Urine UA 3+ (Negative); Ketones Urine Negative (Negative); Leukocyte Esterase Urine Negative (Negative); Nitrite Urine Negative (Negative); Protein Urine Negative (Negative); Urobilinogen Urine Negative (Negative); pH Urine 5.5 (4.5-7.5)
[2022-11-24 23:38] LABS: Basophils # (auto) 0.06 K/uL (0-0.2); Basophils % (auto) 0.5 %; Eosinophils # (auto) 0.07 K/uL (0-0.50); Eosinophils % (auto) 0.5 %; Hematocrit (blood only) 33.4 % (42.0-52.0); Hemoglobin 11.2 g/dl (14.0-18.0); Immature Granulocytes # (auto) 0.04 K/uL (0.01-0.20); Immature Granulocytes % (auto) 0.3 %; Lymphocytes # (auto) 2.58 K/uL (1.2-3.4); Mean Corpuscular Hemoglobin 32.6 pg (25.0-34.0); Mean Corpuscular Hgb Conc 33.5 g/dL (32.0-36.0); Mean Corpuscular Volume 97.1 fL (80.0-100.0); Monocytes # (auto) 0.74 K/uL (0.11-0.59); Monocytes % (auto) 5.7 %; Neutrophils # (auto) 9.42 K/uL (1.40-6.50); Platelet Count 292 K/uL (130-400); RDW Standard Deviation 53.1 fL (36.4-46.3); Red Blood Count 3.44 M/uL (4.70-6.10); White Blood Count 12.91 K/ul (4.8-10.8)
[2022-11-24 23:50] LABS: Albumin Level 3.6 gm/dl (3.4-5.0); BUN Creatinine Ratio 19.2 (10-20); Bilirubin,Total 0.3 mg/dl (0.2-1.0); Calcium 8.9 mg/dl (8.6-10.3); Creatinine Clr Calc Pharmacy 99.5 ml/min; Est GFR (African American) 104.3 ml/min; Potassium 3.6 mmol/L (3.5-5.1); Total Protein 6.2 gm/dl (6.0-8.3)
[2022-11-24 23:57] LABS: Troponin I High Sensitivity 4.8 pg/ml (0-20)
--- NOTE | 2022-11-25 00:09 | Emergency Department Note ---
History of Present Illness General Chief complaint: Foot Injury/Pain Stated complaint: rt. FOOT INFECTION Time Seen by Provider: 11/24/22 22:54 History of Present Illness Maximum Pain Intensity: 7 This 37-year-old noncompliant type I diabetic presents to the ER complaining of problems with his blood sugars and right foot infection. Patient has been trying to take his antibiotics but has been forgetful. He states his heel now smells and is draining purulent material. Patient was placed on Augmentin. Patient denies chest pain, dyspnea, fevers, numbness, tingling, localized weakness. Home Medications Medication Instructions Recorded Confirmed Type insulin syringe-needle U-100 0.3 #100 ea 07/31/21 11/25/22 Rx mL 31 gauge x 15/64" albuterol sulfate 90 mcg/actuation 2 puff inhalation Q6H PRN 06/07/22 11/25/22 Rx aerosol inhaler shortness of breath or wheezing #8.5 grams acetaminophen 500 mg tablet 1,000 mg PO Q8 PRN Pain 08/19/22 11/25/22 History (Tylenol Extra Strength) blood sugar diagnostic (OneTouch #100 ea 08/22/22 11/25/22 Rx Verio test strips) blood-glucose meter (OneTouch #1 ea 08/22/22 11/25/22 Rx Verio Reflect Meter) lancets 33 gauge (OneTouch Delica #100 ea 08/22/22 11/25/22 Rx Lancets) insulin lispro 100 unit/mL 20 unit (0.2 mL) subcut TID #15 mL 08/29/22 11/25/22 Rx subcutaneous pen (Humalog KwikPen (U-100) Insulin) ondansetron HCl 4 mg tablet 4 mg PO TID PRN NAUSEA/VOMITING 10/04/22 11/25/22 History insulin glargine 100 unit/mL (3 15 unit subcut BID 10/13/22 11/25/22 History mL) subcutaneous pen (Lantus Solostar U-100 Insulin) gabapentin 100 mg capsule 200 mg PO TID pain #90 caps 10/27/22 11/25/22 Rx Allergies Allergy/AdvReac Type Severity Reaction Status Date / Time codeine Allergy Intermediate Rash Verified 10/13/22 08:10 erythromycin base Allergy Unknown HAPPENED Verified 10/13/22 08:10 A SMALL CHILD Past Med/Surg History Surgical History No significant past surgical history Family History Other Diabetes Social History Smoking Status: Current every day smoker Tobacco Type: Cigarettes Cigarettes Per Day: 1 pack; Second Hand Exposure: No; Do You Dip or Chew Tobacco: No; Hx Alcohol Use: No Hx Substance Use: No Preferred Language: Thai Communication Ability: Effective Visual Impairment: Limited Hearing Ability: Normal Bun Machine Operator Required: No Beliefs That Will Affect Care: None marital status: Single Current Living Situation: Other Current Living Situation Comment: Lives with friends current occupational status: disabled How many Children do You have: 0 Feels Safe at Home: Yes Childhood Exposure to Second-Hand Smoke: No Diet: diabetic and regular caffeine: Yes during the past year weight has: remained stable Dental Care, Regularly: Yes Physical Activity Frequency: Daily Seatbelt Use: always Sunscreen Use: No Do you think of yourself as: straight/heterosexual Sexual Activity: has been sexually active within the last 12 months Gender Identity: Male Assistive Devices: None Review of Systems A total of 10 systems reviewed and were otherwise negative Physical Exam Vital Signs Vital Signs - 24 hr 11/24/22 22:16 11/24/22 23:17 11/25/22 01:28 Temperature 36.7 C 36.8 C Temperature Source Oral Oral Pulse Rate 132 H Pulse Rate [Apical] 106 H 109 H Pulse Rhythm Regular Pulse Strength Normal Respiratory Rate 19 16 18 Respiratory Effort / Characteristics Non-Labored Spontaneous Respiratory Depth Normal Respiratory Pattern Regular Blood Pressure 113/80 Blood Pressure [Right Arm] 109/77 133/90 Blood Pressure Mean 91 Blood Pressure Mean [Right Arm] 87 104 Blood Pressure Position Lying Pulse Oximetry 98 98 95 Oxygen Delivery Method Room Air Room Air Room Air Sepsis Recent Fever Within 48 Hours No Sepsis New/Unexplained Change in Mental Status No Sepsis Action Taken by Nursing No Action Required 11/24/22 22:32 11/25/22 02:09 11/25/22 02:30 Temperature Temperature Source Pulse Rate 118 H 101 H Pulse Rate [Apical] 105 H Pulse Rhythm Pulse Strength Respiratory Rate 16 Respiratory Effort / Characteristics Respiratory Depth Respiratory Pattern Blood Pressure Blood Pressure [Right Arm] 124/82 Blood Pressure Mean Blood Pressure Mean [Right Arm] 96 Blood Pressure Position Pulse Oximetry 95 Oxygen Delivery Method Room Air Sepsis Recent Fever Within 48 Hours Sepsis New/Unexplained Change in Mental Status Sepsis Action Taken by Nursing 11/25/22 04:10 Temperature Temperature Source Pulse Rate Pulse Rate [Apical] 96 H Pulse Rhythm Pulse Strength Respiratory Rate 18 Respiratory Effort / Characteristics Respiratory Depth Respiratory Pattern Blood Pressure Blood Pressure [Right Arm] 95/69 L Blood Pressure Mean Blood Pressure Mean [Right Arm] 77 Blood Pressure Position Pulse Oximetry 97 Oxygen Delivery Method Room Air Sepsis Recent Fever Within 48 Hours Sepsis New/Unexplained Change in Mental Status Sepsis Action Taken by Nursing VITALS: Vitals are noted on the nurse's note and reviewed by myself. Vital signs tachycardic GENERAL: White male anxious appearing, in no acute distress, nondiaphoretic, well-developed well-nourished. SKIN: right heal with open ulcer with surrounding erythema wound culture taken and sent, the rest of skin was without rashes, erythema, edema, or bruising. There is no tenting of the skin. Capillary reflex less than 2 seconds. HEAD: Normocephalic atraumatic. EARS: External auditory canals clear, EYES: Pupils equal round and reactive to light and accommodation. Conjunctivae without injection, sclerae without icterus. Extraocular movements intact. NOSE: Patent, turbinates without inflammation or discharge. MOUTH: Mucous membranes moist. Pharynx without erythema or exudate. Uvula midline. Airway patent. Tongue does not deviate. NECK: Supple without nuchal rigidity. No lymphadenopathy. No thyromegaly. Cervical spine is nontender. No JVD. HEART: Regular rate and rhythm LUNGS: Clear to auscultation bilaterally without wheezes, rales or rhonchi. No retractions or accessory muscle use. ABDOMEN: Positive bowel sounds x 4. Normal tympanic percussion. Soft, nontender, without masses or organomegaly. Gonzalez sign negative. No guarding or rebound tenderness. No CVA tenderness MUSCULOSKELETAL: No muscle atrophy noted. Pedal pulses +2 equal and present bilaterally NEURO: Patient was alert and oriented to person place and time. Normal sensation to light and sharp touch. No focal neurological deficits. Course Administered Medications Discontinued Medications Dextrose (Dextrose 50% 50 Ml Syringe) Confirm Administered Dose 50 ml IV .Scoutmob- Guided Interventions ONE Stop: 11/25/22 01:32 Last Admin: 11/25/22 01:38 Dose: Not Given Documented By: LARA Dextrose (Dextrose 50% 50 Ml Syringe) 25 ml IV NOW ONE Stop: 11/25/22 01:36 Last Admin: 11/25/22 01:37 Dose: 25 ml Documented By: LARA Dextrose (Dextrose 50% 50 Ml Syringe) 25 ml IV NOW STA Stop: 11/25/22 02:10 Last Admin: 11/25/22 02:11 Dose: 25 ml Documented By: LARA Dextrose (Dextrose 50% 50 Ml Syringe) 25 ml IV NOW ONE Stop: 11/25/22 02:30 Last Admin: 11/25/22 02:31 Dose: 25 ml Documented By: LARA Sodium Chloride (Nss 1000ml) 2,000 mls @ 999 mls/hr IV .Q2H1M ONE Stop: 11/25/22 00:56 Last Infusion: 11/25/22 01:32 Dose: 0 mls/hr Documented By: Admin: 11/24/22 23:25 Dose: 999 mls/hr Documented By: LARA Piperacillin Sod/Tazobactam Sod (Zosyn) 4.5 gm in 120 mls @ 240 mls/hr IV NOW ONE Stop: 11/24/22 23:29 Last Infusion: 11/25/22 00:18 Dose: 0 mls/hr Documented By: Admin: 11/24/22 23:32 Dose: 240 mls/hr Documented By: LARA Daptomycin 450 mg/ Syringe 9 mls @ 4.5 mls/min IV ONE ONE; Protocol Stop: 11/24/22 23:01 Last Admin: 11/24/22 23:36 Dose: 4.5 mls/min Documented By: LARA Medical Decision Making Medical Records Attestation: I reviewed the patient's medical records. Home Medications Current Medication List: was personally reviewed by me Laboratory Data Attestation: I reviewed the patient's lab results. 11/24/22 23:12 11/24/22 23:12 Lab Results 11/24/22 11/24/22 11/24/22 Range/Units 23:00 23:12 23:12 WBC 12.91 H (4.8-10.8) K/ul RBC 3.44 L (4.70-6.10) M/uL Hgb 11.2 L (14.0-18.0) g/dl Hct 33.4 L (42.0-52.0) % MCV 97.1 (80.0-100.0) fL MCH 32.6 (25.0-34.0) pg MCHC 33.5 (32.0-36.0) g/dL RDW Std Deviation 53.1 H (36.4-46.3) fL RDW Coeff of Margarita 15.0 H (11.5-14.5) % Plt Count 292 (130-400) K/uL MPV 9.0 L (9.4-12.4) fL Immature Gran % (Auto) 0.3 % Neut % (Auto) 73.0 % Lymph % (Auto) 20.0 % [place] % (Auto) 5.7 % Eos % (Auto) 0.5 % Baso % (Auto) 0.5 % Neut # (Auto) 9.42 H (1.40-6.50) K/uL Lymph # (Auto) 2.58 (1.2-3.4) K/uL [place] # (Auto) 0.74 H (0.11-0.59) K/uL Eos # (Auto) 0.07 (0-0.50) K/uL Baso # (Auto) 0.06 (0-0.2) K/uL Immature Gran # (Auto) 0.04 (0.01-0.20) K/uL ESR (0-15) mm/hr VBG pH (7.36-7.41) VBG pCO2 (38-50) mmHg VBG pO2 mmHg VBG HCO3 mmol/L VBG O2 Saturation % VBG Base Excess mEq/L Sodium 138 (136-145) mmol/L Potassium 3.6 (3.5-5.1) mmol/L Chloride 99 (98-107) mmol/L Carbon Dioxide 22 (21-32) mmol/L Anion Gap 17 H (3-11) BUN 20 (6-23) mg/dl Creatinine 1.04 (0.6-1.4) mg/dl Est Cr Clr Drug Dosing 99.5 ml/min Est GFR ( Amer) 104.3 ml/min Est GFR (Non-Af Amer) 90.0 ml/min BUN/Creatinine Ratio 19.2 (10-20) Glucose 172 H (70-99(Fasting)) mg/dl POC Glucose 191 H (70-99) mg/dl Lactate (0.4-2.0) mmol/L Calcium 8.9 (8.6-10.3) mg/dl Magnesium 2.0 (1.7-2.4) mg/dl Total Bilirubin 0.3 (0.2-1.0) mg/dl Direct Bilirubin 0.0 (0-0.2) mg/dl AST 35 (13-39) U/L ALT 29 (7-52) U/L Alkaline Phosphatase 163 H (34-104) U/L Troponin I High Sens 4.8 (0-20) pg/ml C-Reactive Protein (0-0.5) mg/dl Total Protein 6.2 (6.0-8.3) gm/dl Albumin 3.6 (3.4-5.0) gm/dl Procalcitonin (0-0.5) ng/ml Urine Color Urine Appearance (Clear) Urine pH (4.5-7.5) Ur Specific [place] (1.000-1.030) Urine Protein (Negative) Urine Glucose (UA) (Negative) Urine Ketones (Negative) Urine Blood (Negative) Urine Nitrite (Negative) Urine Bilirubin (Negative) Urine Urobilinogen (Negative) Ur Leukocyte Esterase (Negative) Urine Opiates Screen (Neg) Ur Methadone, Qual (Neg) Urine Barbiturates (Neg) Ur Phencyclidine (PCP) (Neg) U Amphetamin/Meth Scrn (Neg) MDMA (Ecstasy) Screen (Neg) U Benzodiazepines Scrn (Neg) Ur Cocaine Metabolite (Neg) U Marijuana (THC) Screen (Neg) Ethyl Alcohol mg/dL (<10.0) mg/dl Adenovirus (PCR) (NotDetected) B. pertussis DNA (PCR) (NotDetected) B.parapertussis DNA PCR (NotDetected) C. pneumoniae DNA (PCR) (NotDetected) Coronavirus OC43 (PCR) (NotDetected) Coronavirus HKU1 (PCR) (NotDetected) Coronavirus 229E (PCR) (NotDetected) SARS-CoV-2 (PCR) (NotDetected) Coronavirus NL63 (PCR) (NotDetected) Human Metapneumovir PCR (NotDetected) Influenza Type A (PCR) (NotDetected) Influenza Type B (PCR) (NotDetected) M. pneumoniae (PCR) (NotDetected) Parainfluenza 1 (PCR) (NotDetected) Parainfluenza 2 (PCR) (NotDetected) Parainfluenza 3 (PCR) (NotDetected) Parainfluenza 4 (PCR) (NotDetected) RSV (PCR) (NotDetected) Entero/Rhino (PCR) (NotDetected) 11/24/22 11/24/22 11/24/22 Range/Units 23:12 23:12 23:12 WBC (4.8-10.8) K/ul RBC (4.70-6.10) M/uL Hgb (14.0-18.0) g/dl Hct (42.0-52.0) % MCV (80.0-100.0) fL MCH (25.0-34.0) pg MCHC (32.0-36.0) g/dL RDW Std Deviation (36.4-46.3) fL RDW Coeff of Margarita (11.5-14.5) % Plt Count (130-400) K/uL MPV (9.4-12.4) fL Immature Gran % (Auto) % Neut % (Auto) % Lymph % (Auto) % [place] % (Auto) % Eos % (Auto) % Baso % (Auto) % Neut # (Auto) (1.40-6.50) K/uL Lymph # (Auto) (1.2-3.4) K/uL [place] # (Auto) (0.11-0.59) K/uL Eos # (Auto) (0-0.50) K/uL Baso # (Auto) (0-0.2) K/uL Immature Gran # (Auto) (0.01-0.20) K/uL ESR 16 H (0-15) mm/hr VBG pH (7.36-7.41) VBG pCO2 (38-50) mmHg VBG pO2 mmHg VBG HCO3 mmol/L VBG O2 Saturation % VBG Base Excess mEq/L Sodium (136-145) mmol/L Potassium (3.5-5.1) mmol/L Chloride (98-107) mmol/L Carbon Dioxide (21-32) mmol/L Anion Gap (3-11) BUN (6-23) mg/dl Creatinine (0.6-1.4) mg/dl Est Cr Clr Drug Dosing ml/min Est GFR ( Amer) ml/min Est GFR (Non-Af Amer) ml/min BUN/Creatinine Ratio (10-20) Glucose (70-99(Fasting)) mg/dl POC Glucose (70-99) mg/dl Lactate 8.9 H* (0.4-2.0) mmol/L Calcium (8.6-10.3) mg/dl Magnesium (1.7-2.4) mg/dl Total Bilirubin (0.2-1.0) mg/dl Direct Bilirubin (0-0.2) mg/dl AST (13-39) U/L ALT (7-52) U/L Alkaline Phosphatase (34-104) U/L Troponin I High Sens (0-20) pg/ml C-Reactive Protein (0-0.5) mg/dl Total Protein (6.0-8.3) gm/dl Albumin (3.4-5.0) gm/dl Procalcitonin 0.09 (0-0.5) ng/ml Urine Color Urine Appearance (Clear) Urine pH (4.5-7.5) Ur Specific [place] (1.000-1.030) Urine Protein (Negative) Urine Glucose (UA) (Negative) Urine Ketones (Negative) Urine Blood (Negative) Urine Nitrite (Negative) Urine Bilirubin (Negative) Urine Urobilinogen (Negative) Ur Leukocyte Esterase (Negative) Urine Opiates Screen (Neg) Ur Methadone, Qual (Neg) Urine Barbiturates (Neg) Ur Phencyclidine (PCP) (Neg) U Amphetamin/Meth Scrn (Neg) MDMA (Ecstasy) Screen (Neg) U Benzodiazepines Scrn (Neg) Ur Cocaine Metabolite (Neg) U Marijuana (THC) Screen (Neg) Ethyl Alcohol mg/dL (<10.0) mg/dl Adenovirus (PCR) (NotDetected) B. pertussis DNA (PCR) (NotDetected) B.parapertussis DNA PCR (NotDetected) C. pneumoniae DNA (PCR) (NotDetected) Coronavirus OC43 (PCR) (NotDetected) Coronavirus HKU1 (PCR) (NotDetected) Coronavirus 229E (PCR) (NotDetected) SARS-CoV-2 (PCR) (NotDetected) Coronavirus NL63 (PCR) (NotDetected) Human Metapneumovir PCR (NotDetected) Influenza Type A (PCR) (NotDetected) Influenza Type B (PCR) (NotDetected) M. pneumoniae (PCR) (NotDetected) Parainfluenza 1 (PCR) (NotDetected) Parainfluenza 2 (PCR) (NotDetected) Parainfluenza 3 (PCR) (NotDetected) Parainfluenza 4 (PCR) (NotDetected) RSV (PCR) (NotDetected) Entero/Rhino (PCR) (NotDetected) 11/24/22 11/24/22 11/24/22 Range/Units 23:12 23:12 23:12 WBC (4.8-10.8) K/ul RBC (4.70-6.10) M/uL Hgb (14.0-18.0) g/dl Hct (42.0-52.0) % MCV (80.0-100.0) fL MCH (25.0-34.0) pg MCHC (32.0-36.0) g/dL RDW Std Deviation (36.4-46.3) fL RDW Coeff of Margarita (11.5-14.5) % Plt Count (130-400) K/uL MPV (9.4-12.4) fL Immature Gran % (Auto) % Neut % (Auto) % Lymph % (Auto) % [place] % (Auto) % Eos % (Auto) % Baso % (Auto) % Neut # (Auto) (1.40-6.50) K/uL Lymph # (Auto) (1.2-3.4) K/uL [place] # (Auto) (0.11-0.59) K/uL Eos # (Auto) (0-0.50) K/uL Baso # (Auto) (0-0.2) K/uL Immature Gran # (Auto) (0.01-0.20) K/uL ESR (0-15) mm/hr VBG pH 7.41 (7.36-7.41) VBG pCO2 38 (38-50) mmHg VBG pO2 52 mmHg VBG HCO3 24 mmol/L VBG O2 Saturation 79.9 % VBG Base Excess -0.3 mEq/L Sodium (136-145) mmol/L Potassium (3.5-5.1) mmol/L Chloride (98-107) mmol/L Carbon Dioxide (21-32) mmol/L Anion Gap (3-11) BUN (6-23) mg/dl Creatinine (0.6-1.4) mg/dl Est Cr Clr Drug Dosing ml/min Est GFR ( Amer) ml/min Est GFR (Non-Af Amer) ml/min BUN/Creatinine Ratio (10-20) Glucose (70-99(Fasting)) mg/dl POC Glucose (70-99) mg/dl Lactate (0.4-2.0) mmol/L Calcium (8.6-10.3) mg/dl Magnesium (1.7-2.4) mg/dl Total Bilirubin (0.2-1.0) mg/dl Direct Bilirubin (0-0.2) mg/dl AST (13-39) U/L ALT (7-52) U/L Alkaline Phosphatase (34-104) U/L Troponin I High Sens (0-20) pg/ml C-Reactive Protein < 0.50 (0-0.5) mg/dl Total Protein (6.0-8.3) gm/dl Albumin (3.4-5.0) gm/dl Procalcitonin (0-0.5) ng/ml Urine Color Urine Appearance (Clear) Urine pH (4.5-7.5) Ur Specific [place] (1.000-1.030) Urine Protein (Negative) Urine Glucose (UA) (Negative) Urine Ketones (Negative) Urine Blood (Negative) Urine Nitrite (Negative) Urine Bilirubin (Negative) Urine Urobilinogen (Negative) Ur Leukocyte Esterase (Negative) Urine Opiates Screen (Neg) Ur Methadone, Qual (Neg) Urine Barbiturates (Neg) Ur Phencyclidine (PCP) (Neg) U Amphetamin/Meth Scrn (Neg) MDMA (Ecstasy) Screen (Neg) U Benzodiazepines Scrn (Neg) Ur Cocaine Metabolite (Neg) U Marijuana (THC) Screen (Neg) Ethyl Alcohol mg/dL < 10.0 (<10.0) mg/dl Adenovirus (PCR) (NotDetected) B. pertussis DNA (PCR) (NotDetected) B.parapertussis DNA PCR (NotDetected) C. pneumoniae DNA (PCR) (NotDetected) Coronavirus OC43 (PCR) (NotDetected) Coronavirus HKU1 (PCR) (NotDetected) Coronavirus 229E (PCR) (NotDetected) SARS-CoV-2 (PCR) (NotDetected) Coronavirus NL63 (PCR) (NotDetected) Human Metapneumovir PCR (NotDetected) Influenza Type A (PCR) (NotDetected) Influenza Type B (PCR) (NotDetected) M. pneumoniae (PCR) (NotDetected) Parainfluenza 1 (PCR) (NotDetected) Parainfluenza 2 (PCR) (NotDetected) Parainfluenza 3 (PCR) (NotDetected) Parainfluenza 4 (PCR) (NotDetected) RSV (PCR) (NotDetected) Entero/Rhino (PCR) (NotDetected) 11/24/22 11/24/22 11/24/22 Range/Units 23:17 23:20 23:20 WBC (4.8-10.8) K/ul RBC (4.70-6.10) M/uL Hgb (14.0-18.0) g/dl Hct (42.0-52.0) % MCV (80.0-100.0) fL MCH (25.0-34.0) pg MCHC (32.0-36.0) g/dL RDW Std Deviation (36.4-46.3) fL RDW Coeff of Margarita (11.5-14.5) % Plt Count (130-400) K/uL MPV (9.4-12.4) fL Immature Gran % (Auto) % Neut % (Auto) % Lymph % (Auto) % [place] % (Auto) % Eos % (Auto) % Baso % (Auto) % Neut # (Auto) (1.40-6.50) K/uL Lymph # (Auto) (1.2-3.4) K/uL [place] # (Auto) (0.11-0.59) K/uL Eos # (Auto) (0-0.50) K/uL Baso # (Auto) (0-0.2) K/uL Immature Gran # (Auto) (0.01-0.20) K/uL ESR (0-15) mm/hr VBG pH (7.36-7.41) VBG pCO2 (38-50) mmHg VBG pO2 mmHg VBG HCO3 mmol/L VBG O2 Saturation % VBG Base Excess mEq/L Sodium (136-145) mmol/L Potassium (3.5-5.1) mmol/L Chloride (98-107) mmol/L Carbon Dioxide (21-32) mmol/L Anion Gap (3-11) BUN (6-23) mg/dl Creatinine (0.6-1.4) mg/dl Est Cr Clr Drug Dosing ml/min Est GFR ( Amer) ml/min Est GFR (Non-Af Amer) ml/min BUN/Creatinine Ratio (10-20) Glucose (70-99(Fasting)) mg/dl POC Glucose (70-99) mg/dl Lactate (0.4-2.0) mmol/L Calcium (8.6-10.3) mg/dl Magnesium (1.7-2.4) mg/dl Total Bilirubin (0.2-1.0) mg/dl Direct Bilirubin (0-0.2) mg/dl AST (13-39) U/L ALT (7-52) U/L Alkaline Phosphatase (34-104) U/L Troponin I High Sens (0-20) pg/ml C-Reactive Protein (0-0.5) mg/dl Total Protein (6.0-8.3) gm/dl Albumin (3.4-5.0) gm/dl Procalcitonin (0-0.5) ng/ml Urine Color Yellow Urine Appearance Clear (Clear) Urine pH 5.5 (4.5-7.5) Ur Specific [place] 1.030 (1.000-1.030) Urine Protein Negative (Negative) Urine Glucose (UA) 3+ H (Negative) Urine Ketones Negative (Negative) Urine Blood Negative (Negative) Urine Nitrite Negative (Negative) Urine Bilirubin Negative (Negative) Urine Urobilinogen Negative (Negative) Ur Leukocyte Esterase Negative (Negative) Urine Opiates Screen Neg (Neg) Ur Methadone, Qual Neg (Neg) Urine Barbiturates Neg (Neg) Ur Phencyclidine (PCP) Neg (Neg) U Amphetamin/Meth Scrn Neg (Neg) MDMA (Ecstasy) Screen Neg (Neg) U Benzodiazepines Scrn Neg (Neg) Ur Cocaine Metabolite Neg (Neg) U Marijuana (THC) Screen Pos H (Neg) Ethyl Alcohol mg/dL (<10.0) mg/dl Adenovirus (PCR) Not Detected (NotDetected) B. pertussis DNA (PCR) Not Detected (NotDetected) B.parapertussis DNA PCR Not Detected (NotDetected) C. pneumoniae DNA (PCR) Not Detected (NotDetected) Coronavirus OC43 (PCR) Not Detected (NotDetected) Coronavirus HKU1 (PCR) Not Detected (NotDetected) Coronavirus 229E (PCR) Not Detected (NotDetected) SARS-CoV-2 (PCR) Not Detected (NotDetected) Coronavirus NL63 (PCR) Not Detected (NotDetected) Human Metapneumovir PCR Not Detected (NotDetected) Influenza Type A (PCR) Not Detected (NotDetected) Influenza Type B (PCR) Not Detected (NotDetected) M. pneumoniae (PCR) Not Detected (NotDetected) Parainfluenza 1 (PCR) Not Detected (NotDetected) Parainfluenza 2 (PCR) Not Detected (NotDetected) Parainfluenza 3 (PCR) Not Detected (NotDetected) Parainfluenza 4 (PCR) Not Detected (NotDetected) RSV (PCR) Not Detected (NotDetected) Entero/Rhino (PCR) Not Detected (NotDetected) 11/25/22 11/25/22 11/25/22 Range/Units 01:22 01:27 02:03 WBC (4.8-10.8) K/ul RBC (4.70-6.10) M/uL Hgb (14.0-18.0) g/dl Hct (42.0-52.0) % MCV (80.0-100.0) fL MCH (25.0-34.0) pg MCHC (32.0-36.0) g/dL RDW Std Deviation (36.4-46.3) fL RDW Coeff of Margarita (11.5-14.5) % Plt Count (130-400) K/uL MPV (9.4-12.4) fL Immature Gran % (Auto) % Neut % (Auto) % Lymph % (Auto) % [place] % (Auto) % Eos % (Auto) % Baso % (Auto) % Neut # (Auto) (1.40-6.50) K/uL Lymph # (Auto) (1.2-3.4) K/uL [place] # (Auto) (0.11-0.59) K/uL Eos # (Auto) (0-0.50) K/uL Baso # (Auto) (0-0.2) K/uL Immature Gran # (Auto) (0.01-0.20) K/uL ESR (0-15) mm/hr VBG pH (7.36-7.41) VBG pCO2 (38-50) mmHg VBG pO2 mmHg VBG HCO3 mmol/L VBG O2 Saturation % VBG Base Excess mEq/L Sodium (136-145) mmol/L Potassium (3.5-5.1) mmol/L Chloride (98-107) mmol/L Carbon Dioxide (21-32) mmol/L Anion Gap (3-11) BUN (6-23) mg/dl Creatinine (0.6-1.4) mg/dl Est Cr Clr Drug Dosing ml/min Est GFR ( Amer) ml/min Est GFR (Non-Af Amer) ml/min BUN/Creatinine Ratio (10-20) Glucose (70-99(Fasting)) mg/dl POC Glucose 45 L* 61 L* (70-99) mg/dl Lactate 1.9 (0.4-2.0) mmol/L Calcium (8.6-10.3) mg/dl Magnesium (1.7-2.4) mg/dl Total Bilirubin (0.2-1.0) mg/dl Direct Bilirubin (0-0.2) mg/dl AST (13-39) U/L ALT (7-52) U/L Alkaline Phosphatase (34-104) U/L Troponin I High Sens (0-20) pg/ml C-Reactive Protein (0-0.5) mg/dl Total Protein (6.0-8.3) gm/dl Albumin (3.4-5.0) gm/dl Procalcitonin (0-0.5) ng/ml Urine Color Urine Appearance (Clear) Urine pH (4.5-7.5) Ur Specific [place] (1.000-1.030) Urine Protein (Negative) Urine Glucose (UA) (Negative) Urine Ketones (Negative) Urine Blood (Negative) Urine Nitrite (Negative) Urine Bilirubin (Negative) Urine Urobilinogen (Negative) Ur Leukocyte Esterase (Negative) Urine Opiates Screen (Neg) Ur Methadone, Qual (Neg) Urine Barbiturates (Neg) Ur Phencyclidine (PCP) (Neg) U Amphetamin/Meth Scrn (Neg) MDMA (Ecstasy) Screen (Neg) U Benzodiazepines Scrn (Neg) Ur Cocaine Metabolite (Neg) U Marijuana (THC) Screen (Neg) Ethyl Alcohol mg/dL (<10.0) mg/dl Adenovirus (PCR) (NotDetected) B. pertussis DNA (PCR) (NotDetected) B.parapertussis DNA PCR (NotDetected) C. pneumoniae DNA (PCR) (NotDetected) Coronavirus OC43 (PCR) (NotDetected) Coronavirus HKU1 (PCR) (NotDetected) Coronavirus 229E (PCR) (NotDetected) SARS-CoV-2 (PCR) (NotDetected) Coronavirus NL63 (PCR) (NotDetected) Human Metapneumovir PCR (NotDetected) Influenza Type A (PCR) (NotDetected) Influenza Type B (PCR) (NotDetected) M. pneumoniae (PCR) (NotDetected) Parainfluenza 1 (PCR) (NotDetected) Parainfluenza 2 (PCR) (NotDetected) Parainfluenza 3 (PCR) (NotDetected) Parainfluenza 4 (PCR) (NotDetected) RSV (PCR) (NotDetected) Entero/Rhino (PCR) (NotDetected) 08/18/23 08/18/23 Range/Units 02:27 02:45 WBC (4.8-10.8) K/ul RBC (4.70-6.10) M/uL Hgb (14.0-18.0) g/dl Hct (42.0-52.0) % MCV (80.0-100.0) fL MCH (25.0-34.0) pg MCHC (32.0-36.0) g/dL RDW Std Deviation (36.4-46.3) fL RDW Coeff of Margarita (11.5-14.5) % Plt Count (130-400) K/uL MPV (9.4-12.4) fL Immature Gran % (Auto) % Neut % (Auto) % Lymph % (Auto) % [place] % (Auto) % Eos % (Auto) % Baso % (Auto) % Neut # (Auto) (1.40-6.50) K/uL Lymph # (Auto) (1.2-3.4) K/uL [place] # (Auto) (0.11-0.59) K/uL Eos # (Auto) (0-0.50) K/uL Baso # (Auto) (0-0.2) K/uL Immature Gran # (Auto) (0.01-0.20) K/uL ESR (0-15) mm/hr VBG pH (7.36-7.41) VBG pCO2 (38-50) mmHg VBG pO2 mmHg VBG HCO3 mmol/L VBG O2 Saturation % VBG Base Excess mEq/L Sodium (136-145) mmol/L Potassium (3.5-5.1) mmol/L Chloride (98-107) mmol/L Carbon Dioxide (21-32) mmol/L Anion Gap (3-11) BUN (6-23) mg/dl Creatinine (0.6-1.4) mg/dl Est Cr Clr Drug Dosing ml/min Est GFR ( Amer) ml/min Est GFR (Non-Af Amer) ml/min BUN/Creatinine Ratio (10-20) Glucose (70-99(Fasting)) mg/dl POC Glucose 69 L* 93 (70-99) mg/dl Lactate (0.4-2.0) mmol/L Calcium (8.6-10.3) mg/dl Magnesium (1.7-2.4) mg/dl Total Bilirubin (0.2-1.0) mg/dl Direct Bilirubin (0-0.2) mg/dl AST (13-39) U/L ALT (7-52) U/L Alkaline Phosphatase (34-104) U/L Troponin I High Sens (0-20) pg/ml C-Reactive Protein (0-0.5) mg/dl Total Protein (6.0-8.3) gm/dl Albumin (3.4-5.0) gm/dl Procalcitonin (0-0.5) ng/ml Urine Color Urine Appearance (Clear) Urine pH (4.5-7.5) Ur Specific [place] (1.000-1.030) Urine Protein (Negative) Urine Glucose (UA) (Negative) Urine Ketones (Negative) Urine Blood (Negative) Urine Nitrite (Negative) Urine Bilirubin (Negative) Urine Urobilinogen (Negative) Ur Leukocyte Esterase (Negative) Urine Opiates Screen (Neg) Ur Methadone, Qual (Neg) Urine Barbiturates (Neg) Ur Phencyclidine (PCP) (Neg) U Amphetamin/Meth Scrn (Neg) MDMA (Ecstasy) Screen (Neg) U Benzodiazepines Scrn (Neg) Ur Cocaine Metabolite (Neg) U Marijuana (THC) Screen (Neg) Ethyl Alcohol mg/dL (<10.0) mg/dl Adenovirus (PCR) (NotDetected) B. pertussis DNA (PCR) (NotDetected) B.parapertussis DNA PCR (NotDetected) C. pneumoniae DNA (PCR) (NotDetected) Coronavirus OC43 (PCR) (NotDetected) Coronavirus HKU1 (PCR) (NotDetected) Coronavirus 229E (PCR) (NotDetected) SARS-CoV-2 (PCR) (NotDetected) Coronavirus NL63 (PCR) (NotDetected) Human Metapneumovir PCR (NotDetected) Influenza Type A (PCR) (NotDetected) Influenza Type B (PCR) (NotDetected) M. pneumoniae (PCR) (NotDetected) Parainfluenza 1 (PCR) (NotDetected) Parainfluenza 2 (PCR) (NotDetected) Parainfluenza 3 (PCR) (NotDetected) Parainfluenza 4 (PCR) (NotDetected) RSV (PCR) (NotDetected) Entero/Rhino (PCR) (NotDetected) Imaging Data Attestation: I personally reviewed and interpreted this imaging study as follows: Radiologist's Impression: Venous Doppler Study 11/25/22 00:00 Exam(s): US VENOUS RIGHT LOWER EXTREMITY EXAM: US Duplex Right Lower Extremity Veins CLINICAL HISTORY: Reason for exam: swelling. TECHNIQUE: Real-time duplex ultrasound scan of the right lower extremity veins integrating B-mode two-dimensional vascular structure, Doppler spectral analysis, color flow Doppler imaging and compression. COMPARISON: None. FINDINGS: Deep veins: Unremarkable. No DVT in the visualized common femoral, femoral, proximal deep femoral or popliteal veins. The veins demonstrate normal color flow, are normally compressible, with normal phasic flow and/or augmentation response. Superficial veins: Unremarkable. No thrombus in the visualized great saphenous vein. Soft tissues: No acute findings. No popliteal cyst. IMPRESSION: No ultrasonographic evidence of deep venous thrombosis involving the right lower extremity. Electronically signed by: Valerie Antony MD 11/25/22 04:11 AM MDM Narrative Prior records/ancillary studies reviewed and summarized above. Nursing notes reviewed. Additional history obtained from EMS. The patient's history was concerning for problems with the blood sugar and he will infection. Differential diagnosis: Etiologies such as DKA, osteomyelitis, cellulitis, metabolic, infection, hypo/hyperglycemia, electrolyte abnormalities, cardiac sources, intracerebral event, toxicologic, neurologic, as well as others were entertained. Physical examination: As above. ER treatment provided: IV Lock An order was placed for continuous cardiac monitoring. The monitor shows a rate of 60-1 50 with a sinus rhythm per my interpretation. IV fluids Zofran daptomycin were ordered dextrose was ordered for hypoglycemia On reassessment the patient felt better. Diagnostics interpretation by me: ECG: Ordered for tachycardia EKG: Normal sinus, normal intervals, no acute ST-T wave changes. Impression sinus tachycardia independently interpreted by myself I think arrhythmia is unlikely. EKG shows normal sinus rhythm with no interval abnormalities such as QT prolongation or WPW. There are no findings to suggest Brugada syndrome. Cardiac monitoring in the emergency department reveals no tachycardic or bradycardic dysrhythmia. Hypertrophic cardiomyopathy was considered but there are no clear historical elements pointing toward this. EKG is not suggestive. The QRS voltage is not extremely large and there are no suggestive Q waves. The labs Independently Interpreted by myself revealed leukocytosis, elevated lactic, wound culture pending Blood cultures pending Hyperglycemia Normal VBG Imaging studies: Chest x-ray with no acute consolidation, pneumothorax or free air per my independent interpretation Foot x-ray with no signs of fracture dislocation or effusion per my independent interpretation Doppler ultrasound negative for DVT per my independent interpretation Consultation: A consultation was placed with the hospitalist. The case was discussed and diagnostics were reviewed. The patient was evaluated in the ER for further treatment. Exam and history seem consistent with noncompliant poorly controlled type I diabetic and noncompliant with antibiotics with persistent foot infection. Patient was started on broad-spectrum antibiotics for his diabetic foot ulcer. Repeat culture was taken and sent to lab. Labs and diagnostics were independently interpreted by myself. Medicine was consulted and will evaluate the patient for admission.By the evaluation outlined above emergent etiologies such as cardiac sources, intracerebral event, toxologic, neurologic, as well as others were deemed relatively unlikely. The pt informed about the findings as listed above. All questions were answered and pleased with the treatment. The chart was completed utilizing [employer] Speech voice recognition software. Grammatical errors, random word insertions, pronoun errors, and incomplete sentences are an occassional consequence of this system due to software limitations, ambient noise, and hardware issues. Any formal questions or concerns about the content, text, or information contained within the body of this dictation should be directly addressed to the physician operations assistant for clarification. Impression & Plan Diabetic foot ulcer associated with type 1 diabetes mellitus, Poorly controlled type 1 diabetes mellitus Discharge Plan Visit Data Chief Complaint: Foot Injury/Pain Stated Complaint: rt. FOOT INFECTION ED Provider: Maddi Barrett ED Midlevel Provider: Sima Barriga Discharge Problem: Diabetic foot ulcer associated with type 1 diabetes mellitus, Poorly controlled type 1 diabetes mellitus Patient Disposition: Admitted As Inpatient Condition: Fair Forms Stand Alone Forms: [facility] [employer] Prescriptions Prescriptions: No Action gabapentin 100 mg capsule 200 mg PO TID Qty: 90 11RF albuterol sulfate 90 mcg/actuation HFA aerosol inhaler 2 puff inhalation Q6H PRN (Reason: shortness of breath or wheezing) Qty: 8.5 5RF insulin lispro [Humalog KwikPen Insulin] 100 unit/mL insulin pen 20 unit subcut TID Qty: 15 3RF (DME) OneTouch Verio test strips Strip See Rx Instructions .Route Qty: 100 1RF Rx Instructions: check blood sugar at least 3 times a day (DME) blood-glucose meter [OneTouch Verio Reflect Meter] Misc See Rx Instructions .Route Qty: 1 0RF Rx Instructions: check blood sugars TID (DME) lancets [OneTouch Delica Lancets] 33 gauge misc See Rx Instructions .Route Qty: 100 3RF Rx Instructions: check blood sugars at least 3 times a day acetaminophen [Tylenol Extra Strength] 500 mg tablet 1,000 mg PO Q8 PRN (Reason: Pain) (DME) insulin syringe-needle U-100 0.3 mL 31 gauge x 15/64" syringe See Rx Instructions .Route Qty: 100 0RF Rx Instructions: As directed ondansetron HCl 4 mg tablet 4 mg PO TID PRN (Reason: NAUSEA/VOMITING) insulin glargine [Lantus Solostar U-100 Insulin] 100 unit/mL (3 mL) insulin pen 15 unit subcut BID Referrals Referrals: Carolyn Story MD [Primary Care Provider] -
[2022-11-25 00:14] LABS: Amphetamines+Metham, Urine Neg (Neg); Barbiturates, Urine Neg (Neg); Benzodiazepine, Urine Neg (Neg); Cocaine, Urine Neg (Neg); MDMA (Ecstacy), Urine Neg (Neg); Methadone, Urine Neg (Neg); Opiate, Urine Neg (Neg); Phencyclidine, Urine Neg (Neg)
[2022-11-25 00:30] LABS: Adenovirus PCR Not Detected (NotDetected); Bordetella parapertussis PCR Not Detected (NotDetected); Bordetella pertussis PCR Not Detected (NotDetected); Chlamydia pneumoniae PCR Not Detected (NotDetected); Coronavirus 229E PCR Not Detected (NotDetected); Coronavirus CoV-2 (COVID19)PCR Not Detected (NotDetected); Coronavirus HKU1 PCR Not Detected (NotDetected); Coronavirus NL63 PCR Not Detected (NotDetected); Coronavirus OC43PCR Not Detected (NotDetected); Human Metapneumovirus PCR Not Detected (NotDetected); Influenza A PCR Not Detected (NotDetected); Influenza B PCR Not Detected (NotDetected); Mycoplasma pneumoniae PCR Not Detected (NotDetected); Parainfluenza Virus 1 PCR Not Detected (NotDetected); Parainfluenza Virus 2 PCR Not Detected (NotDetected); Parainfluenza Virus 3 PCR Not Detected (NotDetected); Parainfluenza Virus 4 PCR Not Detected (NotDetected); Respiratory Syncytial VirusPCR Not Detected (NotDetected); Rhinovirus/Enterovirus PCR Not Detected (NotDetected)
[2022-11-25] MEDS ORDERED: DEXTROSE 50% 50 ML SYRINGE IV ONE ×3 (01:31→02:29)
--- NOTE | 2022-11-25 01:55 | History & Physical Report ---
Date of Service November 25, 2022 Assessment & Plan (1) Diabetic foot ulcer associated with type 1 diabetes mellitus: (2) Diabetic peripheral neuropathy associated with type 1 diabetes mellitus: (3) Poorly controlled type 1 diabetes mellitus: (4) Major depressive disorder, recurrent severe without psychotic features: (5) GERD (gastroesophageal reflux disease): (6) Smoker: (7) B12 deficiency: (8) Medical non-compliance: Plan Diabetic foot ulcer right heel- Patient has been admitted 3 times within the past 2 months, and each time left AMA early in admission Continue daptomycin IV and Zosyn IV begun in the ED Consult wound care Patient has followed with the diabetic foot clinic in the outpatient setting He has not been very good about taking antibiotics prescribed for him He did receive 2 L normal saline in the ED NSS + KCl 20 mEq at 80 mils per hour x1 L Advised the patient to not leave AMA Diabetes mellitus type 1/associated peripheral neuropathy- His glucose dropped to 46 while in the ED due to recent decreased oral intake, that he reports that he just does not feel like eating Reduce glargine from 15 to 10 units subcu twice daily Placed on Accu-Cheks with NovoLog SSI Check hemoglobin A1c Tobacco use disorder/asthma- Continue albuterol HFA Advised tobacco cessation History of Present Illness Chief Complaint: The patient presents to the emergency department with complaint regarding his right foot heel infection, and his blood sugars being uncontrolled. Primary Care Provider: Carolyn Story MD The patient is a 37-year-old male with a past medical history including diabetic foot ulcer, diabetes mellitus type 1, diabetic peripheral neuropathy, poorly controlled type 1 diabetes, major depressive disorder recurrent, GERD, tobacco use disorder, B12 deficiency. The patient has been noncompliant with his treatment for his heel ulcer, with having left AMA on 3 occasions within the past 2 months: On 10/06, on 10/11, and 10/19. He states that he will not leave AMA this visit, and wants to get his chronic heel infection cleared up Allergies Allergy/AdvReac Type Severity Reaction Status Date / Time codeine Allergy Intermediate Rash Verified 10/13/22 08:10 erythromycin base Allergy Unknown HAPPENED Verified 10/13/22 08:10 A SMALL CHILD Home Medications Medication Instructions Recorded Confirmed Type insulin syringe-needle U-100 0.3 #100 ea 07/31/21 11/25/22 Rx mL 31 gauge x 15/64" albuterol sulfate 90 mcg/actuation 2 puff inhalation Q6H PRN 06/07/22 11/25/22 Rx aerosol inhaler shortness of breath or wheezing #8.5 grams acetaminophen 500 mg tablet 1,000 mg PO Q8 PRN Pain 08/19/22 11/25/22 History (Tylenol Extra Strength) blood sugar diagnostic (OneTouch #100 ea 08/22/22 11/25/22 Rx Verio test strips) blood-glucose meter (OneTouch #1 ea 08/22/22 11/25/22 Rx Verio Reflect Meter) lancets 33 gauge (OneTouch Delica #100 ea 08/22/22 11/25/22 Rx Lancets) insulin lispro 100 unit/mL 20 unit (0.2 mL) subcut TID #15 mL 08/29/22 11/25/22 Rx subcutaneous pen (Humalog KwikPen (U-100) Insulin) ondansetron HCl 4 mg tablet 4 mg PO TID PRN NAUSEA/VOMITING 10/04/22 11/25/22 History insulin glargine 100 unit/mL (3 15 unit subcut BID 10/13/22 11/25/22 History mL) subcutaneous pen (Lantus Solostar U-100 Insulin) gabapentin 100 mg capsule 200 mg PO TID pain #90 caps 10/27/22 11/25/22 Rx Past Med/Surg History Medical History (Updated 11/25/22 @ 04:34 by Kenny Aguilar MD) Medical non-compliance Surgical History No significant past surgical history Family History Other Diabetes Social History Smoking Status: Current every day smoker Tobacco Type: Cigarettes Cigarettes Per Day: 1 pack; Second Hand Exposure: No; Do You Dip or Chew Tobacco: No; Hx Alcohol Use: No Hx Substance Use: No Preferred Language: Burkinan Communication Ability: Effective Visual Impairment: Limited Hearing Ability: Normal 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 Beliefs That Will Affect Care: None marital status: Single Current Living Situation: Other Current Living Situation Comment: Lives with friends current occupational status: disabled How many Children do You have: 0 Feels Safe at Home: Yes Childhood Exposure to Second-Hand Smoke: No Diet: diabetic and regular caffeine: Yes during the past year weight has: remained stable Dental Care, Regularly: Yes Physical Activity Frequency: Daily Seatbelt Use: always Sunscreen Use: No Do you think of yourself as: straight/heterosexual Sexual Activity: has been sexually active within the last 12 months Gender Identity: Male Assistive Devices: None Review of Systems Review of Systems: The patient denies chest pain, palpitations, shortness of breath, dyspnea on exertion, cough, sore throat, fevers, chills, sweats, weight change, fatigue, nausea, vomiting, diarrhea , constipation, abdominal pain, pelvic pain, blood in urine or stool, dysuria, urinary frequency or urgency, lightheadedness, dizziness, headache, memory loss, loss of consciousness, imbalance, focal or generalized weakness, numbness or tingling in arms, generalized arthralgias or myalgias, back or neck pain, or night sweats. The review of systems is otherwise negative other than for that already noted above, and at least 10 systems have been reviewed. Physical Exam Physical Exam: The patient is awake, alert and oriented 3, well developed and well nourished, normocephalic and atraumatic, lying in bed and in no acute distress. HEENT--PERRL, EOMI, mucous membranes and oropharynx dry. Neck--supple. No JVD. No bruits. Thyroid normal, trachea midline, no adenopathy. Heart--normal S1 and S2. No murmurs, rubs or gallops. Lungs--clear bilaterally, no respiratory distress, no accessory muscle use. Abdomen--normal bowel sounds and soft. Nontender. Nondistended, no hernias or masses, no organomegaly. Extremities--no cyanosis or clubbing. No edema. There are good distal pulses b/l. Dermatologic--right heel with central area of eschar, with surrounding area of erythema, as pictured on 11/17/2022 Neurologic--cranial nerves II through XII grossly intact. Rheumatologic--normal range of motion. Psychiatric--normal affect. Results & Data Results & Data Vital Signs (Past 12 Hours) Vital Signs Temp Pulse Pulse Resp BP BP Pulse Ox 11/24/22 22:32 118 H 11/25/22 01:28 109 H 18 133/90 95 11/24/22 23:17 36.8 C 106 H 16 109/77 98 11/24/22 22:16 36.7 C 132 H 19 113/80 98 O2 Del Method 11/24/22 22:32 11/25/22 01:28 Room Air 11/24/22 23:17 Room Air 11/24/22 22:16 Room Air Laboratory Results Laboratory Results WBC 12.91 K/ul (4.8-10.8) H 11/24/22 23:12 RBC 3.44 M/uL (4.70-6.10) L 11/24/22 23:12 Hgb 11.2 g/dl (14.0-18.0) L 11/24/22 23:12 Hct 33.4 % (42.0-52.0) L 11/24/22 23:12 MCV 97.1 fL (80.0-100.0) 11/24/22 23:12 MCH 32.6 pg (25.0-34.0) 11/24/22 23:12 MCHC 33.5 g/dL (32.0-36.0) 11/24/22 23:12 RDW Std Deviation 53.1 fL (36.4-46.3) H 11/24/22 23:12 RDW Coeff of Margarita 15.0 % (11.5-14.5) H 11/24/22 23:12 Plt Count 292 K/uL (130-400) 11/24/22 23:12 MPV 9.0 fL (9.4-12.4) L 11/24/22 23:12 Immature Gran % (Auto) 0.3 % 11/24/22 23:12 Neut % (Auto) 73.0 % 11/24/22 23:12 Lymph % (Auto) 20.0 % 11/24/22 23:12 Glynn % (Auto) 5.7 % 11/24/22 23:12 Eos % (Auto) 0.5 % 11/24/22 23:12 Baso % (Auto) 0.5 % 11/24/22 23:12 Neut # (Auto) 9.42 K/uL (1.40-6.50) H 11/24/22 23:12 Lymph # (Auto) 2.58 K/uL (1.2-3.4) 11/24/22 23:12 Glynn # (Auto) 0.74 K/uL (0.11-0.59) H 11/24/22 23:12 Eos # (Auto) 0.07 K/uL (0-0.50) 11/24/22 23:12 Baso # (Auto) 0.06 K/uL (0-0.2) 11/24/22 23:12 Immature Gran # (Auto) 0.04 K/uL (0.01-0.20) 11/24/22 23:12 ESR 16 mm/hr (0-15) H 11/24/22 23:12 VBG pH 7.41 (7.36-7.41) 11/24/22 23:12 VBG pCO2 38 mmHg (38-50) 11/24/22 23:12 VBG pO2 52 mmHg 11/24/22 23:12 VBG HCO3 24 mmol/L 11/24/22 23:12 VBG O2 Saturation 79.9 % 11/24/22 23:12 VBG Base Excess -0.3 mEq/L 11/24/22 23:12 Sodium 138 mmol/L (136-145) 11/24/22 23:12 Potassium 3.6 mmol/L (3.5-5.1) 11/24/22 23:12 Chloride 99 mmol/L (98-107) 11/24/22 23:12 Carbon Dioxide 22 mmol/L (21-32) 11/24/22 23:12 Anion Gap 17 (3-11) H 11/24/22 23:12 BUN 20 mg/dl (6-23) 11/24/22 23:12 Creatinine 1.04 mg/dl (0.6-1.4) 11/24/22 23:12 Est Cr Clr Drug Dosing 99.5 ml/min 11/24/22 23:12 Est GFR ( Amer) 104.3 ml/min 11/24/22 23:12 Est GFR (Non-Af Amer) 90.0 ml/min 11/24/22 23:12 BUN/Creatinine Ratio 19.2 (10-20) 11/24/22 23:12 Glucose 172 mg/dl (70-99(Fasting)) H 11/24/22 23:12 POC Glucose 93 mg/dl (70-99) 11/25/22 02:45 Lactate 1.9 mmol/L (0.4-2.0) 11/25/22 01:22 Calcium 8.9 mg/dl (8.6-10.3) 11/24/22 23:12 Magnesium 2.0 mg/dl (1.7-2.4) 11/24/22 23:12 Total Bilirubin 0.3 mg/dl (0.2-1.0) 11/24/22 23:12 Direct Bilirubin 0.0 mg/dl (0-0.2) 11/24/22 23:12 AST 35 U/L (13-39) 11/24/22 23:12 ALT 29 U/L (7-52) 11/24/22 23:12 Alkaline Phosphatase 163 U/L (34-104) H 11/24/22 23:12 Troponin I High Sens 4.8 pg/ml (0-20) 11/24/22 23:12 C-Reactive Protein < 0.50 mg/dl (0-0.5) 11/24/22 23:12 Total Protein 6.2 gm/dl (6.0-8.3) 11/24/22 23:12 Albumin 3.6 gm/dl (3.4-5.0) 11/24/22 23:12 Procalcitonin 0.09 ng/ml (0-0.5) 11/24/22 23:12 Urine Color Yellow 11/24/22 23:20 Urine Appearance Clear (Clear) 11/24/22 23:20 Urine pH 5.5 (4.5-7.5) 11/24/22 23:20 Ur Specific [place] 1.030 (1.000-1.030) 11/24/22 23:20 Urine Protein Negative (Negative) 11/24/22 23:20 Urine Glucose (UA) 3+ (Negative) H 11/24/22 23:20 Urine Ketones Negative (Negative) 11/24/22 23:20 Urine Blood Negative (Negative) 11/24/22 23:20 Urine Nitrite Negative (Negative) 11/24/22 23:20 Urine Bilirubin Negative (Negative) 11/24/22 23:20 Urine Urobilinogen Negative (Negative) 11/24/22 23:20 Ur Leukocyte Esterase Negative (Negative) 11/24/22 23:20 Urine Opiates Screen Neg (Neg) 11/24/22 23:20 Ur Methadone, Qual Neg (Neg) 11/24/22 23:20 Urine Barbiturates Neg (Neg) 11/24/22 23:20 Ur Phencyclidine (PCP) Neg (Neg) 11/24/22 23:20 U Amphetamin/Meth Scrn Neg (Neg) 11/24/22 23:20 MDMA (Ecstasy) Screen Neg (Neg) 11/24/22 23:20 U Benzodiazepines Scrn Neg (Neg) 11/24/22 23:20 Ur Cocaine Metabolite Neg (Neg) 11/24/22 23:20 U Marijuana (THC) Screen Pos (Neg) H 11/24/22 23:20 Ethyl Alcohol mg/dL < 10.0 mg/dl (<10.0) 11/24/22 23:12 Adenovirus (PCR) Not Detected (NotDetected) 11/24/22 23:17 B. pertussis DNA (PCR) Not Detected (NotDetected) 11/24/22 23:17 B.parapertussis DNA PCR Not Detected (NotDetected) 11/24/22 23:17 C. pneumoniae DNA (PCR) Not Detected (NotDetected) 11/24/22 23:17 Coronavirus OC43 (PCR) Not Detected (NotDetected) 11/24/22 23:17 Coronavirus HKU1 (PCR) Not Detected (NotDetected) 11/24/22 23:17 Coronavirus 229E (PCR) Not Detected (NotDetected) 11/24/22 23:17 SARS-CoV-2 (PCR) Not Detected (NotDetected) 11/24/22 23:17 Coronavirus NL63 (PCR) Not Detected (NotDetected) 11/24/22 23:17 Human Metapneumovir PCR Not Detected (NotDetected) 11/24/22 23:17 Influenza Type A (PCR) Not Detected (NotDetected) 11/24/22 23:17 Influenza Type B (PCR) Not Detected (NotDetected) 11/24/22 23:17 M. pneumoniae (PCR) Not Detected (NotDetected) 11/24/22 23:17 Parainfluenza 1 (PCR) Not Detected (NotDetected) 11/24/22 23:17 Parainfluenza 2 (PCR) Not Detected (NotDetected) 11/24/22 23:17 Parainfluenza 3 (PCR) Not Detected (NotDetected) 11/24/22 23:17 Parainfluenza 4 (PCR) Not Detected (NotDetected) 11/24/22 23:17 RSV (PCR) Not Detected (NotDetected) 11/24/22 23:17 Entero/Rhino (PCR) Not Detected (NotDetected) 11/24/22 23:17 Impressions Venous Doppler Study 11/25/22 00:00 Exam(s): US VENOUS RIGHT LOWER EXTREMITY EXAM: US Duplex Right Lower Extremity Veins CLINICAL HISTORY: Reason for exam: swelling. TECHNIQUE: Real-time duplex ultrasound scan of the right lower extremity veins integrating B-mode two-dimensional vascular structure, Doppler spectral analysis, color flow Doppler imaging and compression. COMPARISON: None. FINDINGS: Deep veins: Unremarkable. No DVT in the visualized common femoral, femoral, proximal deep femoral or popliteal veins. The veins demonstrate normal color flow, are normally compressible, with normal phasic flow and/or augmentation response. Superficial veins: Unremarkable. No thrombus in the visualized great saphenous vein. Soft tissues: No acute findings. No popliteal cyst. IMPRESSION: No ultrasonographic evidence of deep venous thrombosis involving the right lower extremity. Electronically signed by: Valerie Antoyn MD 11/25/22 04:11 AM Code Status & VTE Plan Code Status Full code VTE Prophylaxis Plan VTE Prophylaxis will be ordered: Yes PG Care Time/CCT Total # of Minutes Spent Total Time Spent with Patient: Total time spent is greater than 50% in coordination of care (as documented) at patient's floor/unit and/or counseling patient: Coding Level of Care Code 39417 INT INP/OBS CARE 3/75MIN Diagnoses Diabetic foot ulcer associated with type 1 diabetes mellitus E10.621; L97.509 Diabetic peripheral neuropathy associated with type 1 diabetes mellitus E10.42 Poorly controlled type 1 diabetes mellitus E10.65 Major depressive disorder, recurrent severe without psychotic features F33.2 GERD (gastroesophageal reflux disease) K21.9 Smoker F17.200 B12 deficiency E53.8 Medical non-compliance Z91.199
[2022-11-25] MEDS ORDERED: DEXTROSE 50% 50 ML SYRINGE IV STA ×2 (02:09→06:11)
--- NOTE | 2022-11-25 04:12 | Ultrasound Report ---
Exam(s): US VENOUS RIGHT LOWER EXTREMITY EXAM: US Duplex Right Lower Extremity Veins CLINICAL HISTORY: Reason for exam: swelling. TECHNIQUE: Real-time duplex ultrasound scan of the right lower extremity veins integrating B-mode two-dimensional vascular structure, Doppler spectral analysis, color flow Doppler imaging and compression. COMPARISON: None. FINDINGS: Deep veins: Unremarkable. No DVT in the visualized common femoral, femoral, proximal deep femoral or popliteal veins. The veins demonstrate normal color flow, are normally compressible, with normal phasic flow and/or augmentation response. Superficial veins: Unremarkable. No thrombus in the visualized great saphenous vein. Soft tissues: No acute findings. No popliteal cyst. IMPRESSION: No ultrasonographic evidence of deep venous thrombosis involving the right lower extremity. Electronically signed by: Valerie Antony MD 11/25/22 04:11 AM
[2022-11-25] MEDS ORDERED: ALBUTEROL HFA 8 GM INHALER INH PRN (04:39)
[2022-11-25] MEDS ORDERED: GLUCAGON FOR INJ 1 MG VIAL SQ PRN (04:39)
[2022-11-25] MEDS ORDERED: ONDANSETRON INJ 2 MG/ML 2 ML VIAL IV PRN (04:39)
[2022-11-25] MEDS ORDERED: GLUCOSE 10 TAB/TUBE PO PRN (04:39)
[2022-11-25] MEDS ORDERED: GLUCOSE 40% GEL 15 GM TUBE PO PRN (04:39)
[2022-11-25] MEDS ORDERED: DEXTROSE 50% 50 ML SYRINGE IV PRN (04:39)
[2022-11-25] MEDS ORDERED: ACETAMINOPHEN 500 MG TAB PO PRN (04:39)
[2022-11-25] MEDS: ENOXAPARIN INJ 40 MG/0.4 ML SYR SQ SCH (05:18)
[2022-11-25] MEDS: CARBOHYDRATES FOR HYPOGLYCEMIA PO PRN ×2 (06:08→12:00)
--- NOTE | 2022-11-25 07:13 | XRay Report ---
XR chest 1V portable CLINICAL HISTORY: Sepsis TECHNIQUE: Single frontal radiograph of the chest was obtained. Comparison: Comparison is made to CT chest 10/19/2022 FINDINGS: No lines and tubes are seen. The cardiomediastinal silhouette is normal. The lungs are clear. No evid ence of pleural effusion or pneumothorax. IMPRESSION: No acute abnormalities and in particular no radiographic evidence of pneumonia. ACT 112: Negative or not required by law. Electronically signed by: Jeanmarie Reeves M.D. 11/25/2022 7:12 AM
--- NOTE | 2022-11-25 07:25 | XRay Report ---
XR foot RT min 3V routine CLINICAL HISTORY: ? OM TECHNIQUE: 3 views of the right foot were obtained. Comparison: Comparison is made to foot radiographs 09/21/2019 FINDINGS: No evidence of bony erosion is seen. The joint spaces are well preserved. Vascular calcifications are noted. IMPRESSION: No radiographic evidence of osteomyelitis. If clinical concern remains, MRI is a more sensitive modal ity. ACT 112: Negative or not required by law. Electronically signed by: Jeanmarie Reeves M.D. 11/25/2022 7:24 AM
[2022-11-25] MEDS: PIPERACILLIN/TAZOBACTAM 4.5 GM in DEXTROSE 5% 100 ML IV SCH ×3 (08:17→21:49)
[2022-11-25] MEDS: LANTUS PER UNIT CHARGE SQ SCH ×2 (08:26→21:50)
[2022-11-25] MEDS: INSULIN ASPART PER UNIT CHARGE SC SCH ×4 (08:26→21:50)
[2022-11-25] MEDS: GABAPENTIN 100 MG CAP PO SCH ×3 (11:57→21:50)
--- NOTE | 2022-11-25 12:43 | Electrocardiogram Report ---
Test Reason : Blood Pressure : / mmHG Vent. Rate : 117 BPM Atrial Rate : 117 BPM P-R Int : 134 ms QRS Dur : 076 ms QT Int : 326 ms P-R-T Axes : 066 063 054 degrees QTc Int : 454 ms Sinus tachycardia Otherwise normal ECG When compared with ECG of 18-OCT-2022 23:21, No significant change was found Confirmed by Kannan Taylor ([id number]) on 11/25/2022 12:43:40 PM Referred By: REFERRED SELF Confirmed By:Kannan Taylor
--- NOTE | 2022-11-25 20:08 | History & Physical Bridge Note ---
Date of Service November 25, 2022 History & Physical Bridge Note I have examined the patient, reviewed the History & Physical and in the interval since the performance of the History & Physical I have noted the following changes of clinical significance: Pt feeling fine, no fevers/chills. No pain in heel. I discussed his case with Podiatry Dr. Brasher who will see in consult. Glucose has been low here despite taking much lower doses of insulin here than at home. He reports taking Lantus 35-50 units hs and Novolog 20 unis with each meal. Bed bugs were found on patient's stretcher this AM when he was brought to the floor from the ER. He is now on isolation precautions VSS NAD, AAOx3 RRR no mgr CTAB no wcr Right heel with 2.5cm circular ulcer with central eschar, minimal surrounding erythema, no drainage 2+ DP pulses bilat, 1+ pitting edema R>L distal legs and feet Continue Dapto, ZOsyn, await Podiatry eval for debridement Continue insulin but loosened carb coverage further due to hypoglycemia watch for acidosis-check BMP in AM, CBC
[2022-11-25] MEDS: DAPTOmycin 300 MG in SYRINGE 0 ML IV SCH (21:50)
[2022-11-26] MEDS: PIPERACILLIN/TAZOBACTAM 4.5 GM in DEXTROSE 5% 100 ML IV SCH ×3 (05:50→22:25)
[2022-11-26] MEDS: ENOXAPARIN INJ 40 MG/0.4 ML SYR SQ SCH (05:50)
--- NOTE | 2022-11-26 06:54 | Orthopedic Consultation ---
Date of Consultation November 25, 2022 Assessment & Plan (1) Diabetic foot ulcer associated with type 1 diabetes mellitus: Patient seen, evaluated, and treated. Reviewed previous documentation. Discussed case with Dr. Hardy who Patient follows with. Patient will undergo OR debridement Monday11/27/22. Thank you for allowing me to participate in the care of this Patient. I reviewed procedure in detail as well as postoperative recovery. I discussed expectations and patient's current weightbearing status. All questions answered. I have discussed procedure in detail as well as postoperative recovery. All potential risks, benefits, complications, alternatives, rehab, potential for incomplete relief of symptoms, need for further surgery, DVT, PE, , persistent pain, swelling, scarring, weakness, neurovascular, wound complications and potential for amputations were discussed with patient. Unwa nted outcomes such as, but not limited to were reviewed including under correction, overcorrection, return of deformity, infection. All questions were answered. Patient has decided to proceed with procedure as indicated. (2) Diabetic peripheral neuropathy associated with type 1 diabetes mellitus: (3) Poorly controlled type 1 diabetes mellitus: (4) Medical non-compliance: History of Present Illness Attending Physician: Bruna Sanchez MD History of Present Illness Patient is a 37-year-old male seen at bedside for a right heel ulcer. Patient has a past medical history significant for diabetic foot ulcer, diabetes mellitus type 1, diabetic peripheral neuropathy, poorly controlled type 1 diabetes, major depressive disorder recurrent, GERD, tobacco use disorder, B12 deficiency. The patient reportedly been noncompliant with his treatment for his heel ulcer, and left AMA on 3 occasions within the past 2 months: On 10/06, on 10/11, and 10/19. Patient does have a PRAFO with him but relates it irritates his leg and foot and does not wear it. Patient does follow with Endocrinology, [facility] wound care, and out patient Podiatry with Dr. Salomon. I have reviewed previous documentation. Allergies Allergy/AdvReac Type Severity Reaction Status Date / Time codeine Allergy Intermediate Rash Verified 10/13/22 08:10 erythromycin base Allergy Unknown HAPPENED Verified 10/13/22 08:10 A SMALL CHILD Home Medications Medication Instructions Recorded Confirmed Type insulin syringe-needle U-100 0.3 #100 ea 07/31/21 11/25/22 Rx mL 31 gauge x 15/64" albuterol sulfate 90 mcg/actuation 2 puff inhalation Q6H PRN 06/07/22 11/25/22 Rx aerosol inhaler shortness of breath or wheezing #8.5 grams acetaminophen 500 mg tablet 1,000 mg PO Q8 PRN Pain 08/19/22 11/25/22 History (Tylenol Extra Strength) blood sugar diagnostic (OneTouch #100 ea 08/22/22 11/25/22 Rx Verio test strips) blood-glucose meter (OneTouch #1 ea 08/22/22 11/25/22 Rx Verio Reflect Meter) lancets 33 gauge (OneTouch Delica #100 ea 08/22/22 11/25/22 Rx Lancets) insulin lispro 100 unit/mL 20 unit (0.2 mL) subcut TID #15 mL 08/29/22 11/25/22 Rx subcutaneous pen (Humalog KwikPen (U-100) Insulin) ondansetron HCl 4 mg tablet 4 mg PO TID PRN NAUSEA/VOMITING 10/04/22 11/25/22 History insulin glargine 100 unit/mL (3 15 unit subcut BID 10/13/22 11/25/22 History mL) subcutaneous pen (Lantus Solostar U-100 Insulin) gabapentin 100 mg capsule 200 mg PO TID pain #90 caps 10/27/22 11/25/22 Rx Patient History Medical History Medical non-compliance Surgical History No significant past surgical history Family History Other Diabetes Social History Smoking Status: Current some day smoker Tobacco Type: Cigarettes Cigarettes Per Day: 1 pack; Second Hand Exposure: No; Do You Dip or Chew Tobacco: No; Hx Alcohol Use: No Hx Substance Use: Yes Prescribed Medications: Marijuana Preferred Language: German Communication Ability: Effective Visual Impairment: Limited Hearing Ability: Normal Sharepoint Designer Developer Required: No Beliefs That Will Affect Care: None marital status: Single Current Living Situation: Other Current Living Situation Comment: Lives with friends current occupational status: disabled How many Children do You have: 0 Feels Safe at Home: Yes Childhood Exposure to Second-Hand Smoke: No Diet: diabetic and regular caffeine: Yes during the past year weight has: remained stable Dental Care, Regularly: Yes Physical Activity Frequency: Daily Seatbelt Use: always Sunscreen Use: No Do you think of yourself as: straight/heterosexual Sexual Activity: has been sexually active within the last 12 months Gender Identity: Male Assistive Devices: None Review of Systems Review of Systems: All systems reviewed & are unremarkable except as noted in HPI & below Physical Exam Constitutional: well developed, well nourished, cooperative and comfortable Eyes: normal visual whitley by confrontation Neck: normal visual inspection Respiratory: normal respiratory effort Cardiovascular: Rate/Rhythm: regular rate and regular rhythm Vessels: posterior tibial pulses present and dorsalis pedis pulses present Musculoskeletal: Extremities: extremities normal to inspection Skin: + ulcer (Right posterior retro calcaneal heel full thickness ) Neurologic: moves all extremities (Decreased epicritic sensation to feet) Psychiatric: Orientation: alert and oriented x 3 Results & Data Vital Signs (Past 12 Hours) Vital Signs Temp Pulse Resp BP Pulse Ox O2 Del Method 11/25/22 20:41 36.5 C 97 H 16 126/80 97 Room Air 11/25/22 14:57 36.5 C 93 H 16 133/83 98 Room Air
[2022-11-26] MEDS: GABAPENTIN 100 MG CAP PO SCH ×3 (08:23→20:08)
[2022-11-26] MEDS: LANTUS PER UNIT CHARGE SQ SCH ×2 (08:24→20:25)
[2022-11-26] MEDS: INSULIN ASPART PER UNIT CHARGE SC SCH ×4 (08:24→20:25)
--- NOTE | 2022-11-26 17:22 | Hospitalist Progress Note ---
Date of Service November 26, 2022 Assessment & Plan (1) Diabetic foot ulcer associated with type 1 diabetes mellitus: Plan: Diabetic foot ulcer right heel- Patient has been admitted 3 times within the past 2 months, and each time left AMA early in admission With heel eschar, xray foot without OM, no fevers or leukocytosis, has some erythema surrounding Cultures pending, NGTD Continue daptomycin IV and Zosyn for broad spectrum coverage plan for Podiatry to debride in OR tomorrow, NPO after midnight he wants to be discharged tomorrow after the procedure and can do so on empiric po abx will need close outpt Podiatry follow up (2) Diabetic peripheral neuropathy associated with type 1 diabetes mellitus: Plan: noted, has special DM shoes continue gabapentin (3) Poorly controlled type 1 diabetes mellitus: Plan: Diabetes mellitus type 1/associated peripheral neuropathy- with hypoglycemia initially and insulin amounts were decreased, now with hyperglycemia check BMP to look for acidosis increase Lantus (4) Major depressive disorder, recurrent severe without psychotic features: Plan: not on meds (5) Smoker: Plan: Tobacco use disorder/asthma- Continue albuterol HFA Advised tobacco cessation (6) Medical non-compliance: Plan Dispo-continued stay for heel debridement and then discharge tomorrow Admission and Anticipated Discharge Date Admission Date: November 25, 2022 Anticipated date of discharge: 11/27/22 Subjective Pt has no complaints. He declined to have his labs drawn this AM but now is agreeable. No pain. Physical Exam 2 Constitutional: WD/WN, vitals as above Respiratory: normal respiratory effort, lungs clear to auscultation Cardiovascular: Rate/Rhythm: regular rate and regular rhythm Extremities: + edema (1+ pitting edema legs bilat) Results & Data Results & Data Vital Signs (Past 12 Hours) Vital Signs Temp Pulse Resp BP Pulse Ox O2 Del Method 11/26/22 15:38 36.5 C 89 16 111/71 99 Room Air 11/26/22 08:17 36.6 C 96 H 16 101/67 97 Room Air PG Care Time/CCT Total # of Minutes Spent Total Time Spent with Patient: Total time spent is greater than 50% in coordination of care (as documented) at patient's floor/unit and/or counseling patient: Coding Level of Care Code 12068 SUB INP/OBS CARE 2/35MIN Diagnoses Diabetic foot ulcer associated with type 1 diabetes mellitus E10.621; L97.509 Diabetic peripheral neuropathy associated with type 1 diabetes mellitus E10.42 Poorly controlled type 1 diabetes mellitus E10.65 Major depressive disorder, recurrent severe without psychotic features F33.2 Smoker F17.200 Medical non-compliance Z91.199
[2022-11-26 17:56] LABS: Basophils # (auto) 0.09 K/uL (0-0.2); Eosinophils # (auto) 0.14 K/uL (0-0.50); Eosinophils % (auto) 1.5 %; Hematocrit (blood only) 40.1 % (42.0-52.0); Hemoglobin 13.4 g/dl (14.0-18.0); Immature Granulocytes # (auto) 0.08 K/uL (0.01-0.20); Immature Granulocytes % (auto) 0.9 %; Lymphocytes # (auto) 2.01 K/uL (1.2-3.4); Mean Corpuscular Hemoglobin 32.8 pg (25.0-34.0); Mean Corpuscular Hgb Conc 33.4 g/dL (32.0-36.0); Mean Corpuscular Volume 98.3 fL (80.0-100.0); Mean Platelet Volume 8.9 fL (9.4-12.4); Monocytes # (auto) 0.69 K/uL (0.11-0.59); Monocytes % (auto) 7.5 %; Neutrophils # (auto) 6.13 K/uL (1.40-6.50); Neutrophils % (auto) 67.1 %; Platelet Count 282 K/uL (130-400); RDW Coefficient of Variation 14.8 % (11.5-14.5); RDW Standard Deviation 54.2 fL (36.4-46.3); Red Blood Count 4.08 M/uL (4.70-6.10); White Blood Count 9.14 K/ul (4.8-10.8)
[2022-11-26 18:23] LABS: Albumin Globulin Ratio 1.3 (0.9-2); BUN Creatinine Ratio 19.8 (10-20); Bilirubin,Total 0.5 mg/dl (0.2-1.0); Creatinine Clr Calc Pharmacy 97.8 ml/min; Globulin 3.2 gm/dl (2.5-4.0); Magnesium 2.4 mg/dl (1.7-2.4); Potassium 4.6 mmol/L (3.5-5.1); Total Protein 7.2 gm/dl (6.0-8.3)
[2022-11-26] MEDS: DAPTOmycin 300 MG in SYRINGE 0 ML IV SCH (20:16)
[2022-11-27] MEDS: ENOXAPARIN INJ 40 MG/0.4 ML SYR SQ SCH (01:14)
[2022-11-27] MEDS ORDERED: Nursing to Pharmacy Communication SCH ×2 (02:45→10:00)
[2022-11-27 04:12] LABS: Estimated Average Glucose 232 mg/dl; Hemoglobin A1C 9.7 % (4.5-5.6)
[2022-11-27] MEDS: PIPERACILLIN/TAZOBACTAM 4.5 GM in DEXTROSE 5% 100 ML IV SCH (05:25)
[2022-11-27] MEDS ORDERED: INSULIN ASPART PER UNIT CHARGE SC SCH ×2 (06:00→11:30)
[2022-11-27] MEDS ORDERED: BUPIVACAINE 0.5 % 5 MG/1 ML MPF 30ML VIAL ONE (07:25)
[2022-11-27] MEDS ORDERED: MIDAZOLAM HCL 1 MG/ML 2ML VIAL ONE (07:40)
[2022-11-27] MEDS ORDERED: fentaNYL citrate PF 100 MCG/2 ML VIAL ONE (07:41)
[2022-11-27] MEDS ORDERED: LIDOCAINE 2% 2 ML VIAL/AMP(20MG/ML) INFIL ONE (07:41)
[2022-11-27] MEDS ORDERED: PROPOFOL IV EMULSION 10 MG/ML 20 ML VIAL IV ONE (07:41)
--- NOTE | 2022-11-27 07:49 | History & Physical Bridge Note ---
Date of Service November 27, 2022 History & Physical Bridge Note I have examined the patient, reviewed the History & Physical and in the interval since the performance of the History & Physical I have noted the following changes of clinical significance: no changes noted
[2022-11-27] MEDS ORDERED: HYDROmorphone INJ 2 MG/ML SYR/VIAL IV PRN (07:50)
[2022-11-27] MEDS ORDERED: ONDANSETRON INJ 2 MG/ML 2 ML VIAL IV PRN (07:50)
[2022-11-27] MEDS ORDERED: ePHEDrine sulfate 50 MG/ML AMP IV PRN (07:50)
[2022-11-27] MEDS ORDERED: fentaNYL citrate PF 100 MCG/2 ML VIAL IV PRN (07:50)
[2022-11-27] MEDS ORDERED: ATROPINE SULFATE 0.1 MG/ML 10ML SYR IV PRN (07:50)
--- NOTE | 2022-11-27 07:50 | Anesthesiology Consultation ---
Date of Service November 27, 2022 Assessment & Plan ASA ASA3 Proposed Anesthesia Anesthesia Type: MAC Risk / Benefits Reviewed With: PT / POA / Parent / Guardian, Accepts Plan and Informed Consent Obtained History Surgery Operation Date: 11/27/22 07:30 Proposed Procedures p Right Heel Wound Debridement with skin substitute(Right) - Lam Brasher DPM, MS Height/Weight Height: 5 ft 11 in Weight: 73.9 kg Allergies Allergy/AdvReac Type Severity Reaction Status Date / Time codeine Allergy Intermediate Rash Verified 10/13/22 08:10 erythromycin base Allergy Unknown HAPPENED Verified 10/13/22 08:10 A SMALL CHILD Medications Home Medications Medication Instructions Recorded Confirmed Last Taken insulin syringe-needle U-100 0.3 #100 ea 07/31/21 11/25/22 Unknown mL 31 gauge x 15/64" albuterol sulfate 90 mcg/actuation 2 puff inhalation Q6H PRN 06/07/22 11/25/22 Unknown aerosol inhaler shortness of breath or wheezing #8.5 grams acetaminophen 500 mg tablet 1,000 mg PO Q8 PRN Pain 08/19/22 11/25/22 Unknown (Tylenol Extra Strength) blood sugar diagnostic (OneTouch #100 ea 08/22/22 11/25/22 Unknown Verio test strips) blood-glucose meter (OneTouch #1 ea 08/22/22 11/25/22 Unknown Verio Reflect Meter) lancets 33 gauge (OneTouch Delica #100 ea 08/22/22 11/25/22 Unknown Lancets) insulin lispro 100 unit/mL 20 unit (0.2 mL) subcut TID #15 mL 08/29/22 11/25/22 10/13/22 subcutaneous pen (Humalog KwikPen (U-100) Insulin) ondansetron HCl 4 mg tablet 4 mg PO TID PRN NAUSEA/VOMITING 10/04/22 11/25/22 Unknown insulin glargine 100 unit/mL (3 15 unit subcut BID 10/13/22 11/25/22 10/13/22 mL) subcutaneous pen (Lantus Solostar U-100 Insulin) gabapentin 100 mg capsule 200 mg PO TID pain #90 caps 10/27/22 11/25/22 Unknown Active Medications Generic Name Dose Route Start Last Admin Trade Name Freq PRN Reason Stop Dose Admin Enoxaparin Sodium 40 mg 11/25/22 06:00 11/27/22 01:14 Enoxaparin Inj 40 Mg/0.4 Ml Syr SQ 12/25/22 05:59 Not Given Q24H RISSA Gabapentin 200 mg 11/25/22 09:00 11/26/22 20:08 Gabapentin 100 Mg Cap PO 12/25/22 08:59 200 mg TID RISSA Administration Daptomycin 300 mg/ Syringe 6 mls @ 3 mls/min 11/25/22 21:00 11/26/22 20:16 IV 12/02/22 20:59 3 mls/min Q24H RISSA Administration Protocol Piperacillin Sod/Tazobactam 120 mls @ 30 mls/hr 11/25/22 06:00 11/27/22 05:25 Sod 4.5 gm/ Dextrose IV 12/02/22 05:59 Not Given Q8H RISSA Protocol Insulin Aspart 0 units 11/27/22 06:00 11/27/22 05:30 Insulin Aspart Per Unit Charge SC 12/27/22 05:59 1,000 units Q6 RISSA Administration Insulin Glargine 10 units 11/26/22 21:00 11/26/22 20:25 Lantus Per Unit Charge SQ 12/26/22 20:59 10 units BID RISSA Administration Miscellaneous 15 - 30 gm 11/25/22 04:39 11/25/22 12:00 Carbohydrates For Hypoglycemia PO 12/25/22 04:38 15 gm UD PRN Administration Hypoglycemia Protocol NPO Date Last Intake of Fluids: 11/26/22 Time Last Intake of Fluids: 00:00 Date Last Intake of Solids: 11/26/22 Time Last Intake of Solids: 23:59 Past Medical History Medical History Medical non-compliance Exercise / Class Metabolic Activity II 4-5 Yardwork/Stairs/Walk up hill Past Family History Family History Other Diabetes Past Surgical History Surgical History No significant past surgical history Past Anesthesia History No Hx of Anesthesia Complications and No Family Hx of Anesthesia Complications History of PONV No Hx of PONV and No Hx of Motion Sickness Social History Smoking Status: Current some day smoker tobacco type: cigarettes Smoking cigarettes per day: 1 pack Do You Dip or Chew Tobacco: No Hx Alcohol Use: No Hx Substance Use: Yes substance use type: marijuana Review of Systems denies fever/cough/ colds/ chest pain/ SOB/ MARILYNN denies MARILYNN Physical Exam Vital Signs Last Vital Signs Temp 36.4 C L 11/27/22 07:20 Pulse 93 H 11/27/22 07:20 Resp 19 11/27/22 07:20 BP 114/74 11/27/22 07:20 Pulse Ox 97 11/27/22 07:20 O2 Del Method Room Air 11/27/22 07:20 ENMT Mouth: + edentulous; no TMJ abnormality and no dentition abnormality Thyromental Distance: > or= 3.5 Finger Breadths Mallampati Class: II Neck neck extension not limited Respiratory normal respiratory effort; no respiratory distress Auscultation: lungs clear to auscultation bilaterally Cardiovascular Rate/Rhythm: regular rate and regular rhythm Neurologic moves all extremities Psychiatric Orientation: alert and oriented x 3 Testing Laboratory Results 11/26/22 17:37 11/26/22 17:36 Hemoglobin A1c 9.7 % (4.5-5.6) H 11/26/22 17:37 Urine Color Yellow 11/24/22 23:20 Urine Appearance Clear (Clear) 11/24/22 23:20 Urine pH 5.5 (4.5-7.5) 11/24/22 23:20 Ur Specific [place] 1.030 (1.000-1.030) 11/24/22 23:20 Urine Protein Negative (Negative) 11/24/22 23:20 Urine Glucose (UA) 3+ (Negative) H 11/24/22 23:20 Urine Ketones Negative (Negative) 11/24/22 23:20 Urine Nitrite Negative (Negative) 11/24/22 23:20 Ur Leukocyte Esterase Negative (Negative) 11/24/22 23:20 11/24/22 23:00 Gram Stain - Final Foot,Right Aerobic and Anaerobic Culture - Preliminary Staphylococcus aureus 11/24/22 22:36 Aerobic Blood Culture - Preliminary Blood No growth in Aerobic bottle after 48 hours. Anaerobic Blood Culture - Final 11/24/22 22:36 Aerobic Blood Culture - Preliminary Blood No growth in Aerobic bottle after 48 hours. Anaerobic Blood Culture - Preliminary No growth in Anaerobic bottle after 48 hours. 11/27/22 11/26/22 05:27 20:17 POC Glucose 196 H 138 H
--- NOTE | 2022-11-27 08:39 | Post Operative Brief Note ---
Immediate Post Op Note v1 Date of Surgery November 27, 2022 Pre & Post Diagnosis Operation Date: 11/27/22 07:30 Pre-Op Diagnosis: Right lower extremity diabetic foot ulcer Post-Op Diagnosis: Right lower extremity diabetic foot ulcer I identified the patient and participated in the time-out.: Yes Procedure Operation Date: 11/27/22 07:30 Actual Procedures p Right Heel Wound Debridement with skin substitute(Right) - Lam Brasher DPM, MS Surgeon Lam Brasher DPM, MS Automobile Body Customizer None Estimated Blood Loss 0 Findings Consistent with Post-Op Diagnosis consistent with pre operative findings
--- NOTE | 2022-11-27 09:10 | Anesthesiology Progress Note ---
Date of Service November 27, 2022 Anesthesia Post Procedure Vital Signs Vital Signs: Temp Pulse Pulse Resp BP Pulse Ox O2 Del Method 11/27/22 08:50 84 16 103/63 93 Room Air 11/27/22 08:42 36.3 C L 89 19 92/56 L 94 Room Air 11/27/22 07:15 Room Air 11/27/22 07:20 36.4 C L 93 H 19 114/74 97 Room Air 11/26/22 23:13 36.5 C 90 16 132/77 96 Room Air 11/26/22 15:38 36.5 C 89 16 111/71 99 Room Air Pain Intensity Right Heel: Pain Intensity: 0 Transfer of Care Handoff Completed per policy Notes Mental Status: alert / awake / arousable and participated in evaluation Patient Amnestic to Procedure: Yes Nausea / Vomiting: adequately controlled Pain: adequately controlled Airway Patency, RR, SpO2: stable & adequate BP & HR: stable & adequate Hydration State: stable & adequate Anesthetic Complications: no major complications apparent and Pt Satisfied with anesthetic care
[2022-11-27] MEDS: LANTUS PER UNIT CHARGE SQ SCH (10:06)
[2022-11-27] MEDS: GABAPENTIN 100 MG CAP PO SCH (10:07)
[2022-11-27 10:42] LABS: Marijuana Quant, GCMS Urine 49 ng/mL (<5)
--- NOTE | 2022-11-27 10:50 | Operative Report ---
Post Operative Report Pre & Post Diagnosis Operation Date: 11/27/22 07:30 Pre-Op Diagnosis: Right lower extremity diabetic foot ulcer Post-Op Diagnosis: Right lower extremity diabetic foot ulcer I identified the patient and participated in the time-out.: Yes Procedure Operation Date: 11/27/22 07:30 Actual Procedures p Right Heel Wound Debridement with skin substitute(Right) - Lam Brasher DPM, MS Surgeon Lam Brasher DPM, MS Trust Manager Assistant None Estimated Blood Loss 0 Findings Consistent with Post-Op Diagnosis consistent with pre operative findings Specimens None Description of Procedure History of present illness: Patient is a 37-year-old male with history of right non healing diabetic foot ulcer. Patient seen today for extensive debridement with wound bed preparation, and application of skin substitute. Procedure in detail was discussed as well as postoperative care. All questions were answered. All potential risks, benefits, complications, alternatives, rehab, potential for incomplete relief of symptoms, need for further surgery, DVT, PE, , persistent pain, swelling, scarring, weakness, neurovascular, wound complications and potential for amputations were discussed with patient. Unwanted outcomes such as, but not limited to were reviewed including under correction, overcorrection, return of deformity, infection. All questions were answered. Patient has decided to proceed with procedure as indicated. Preoperative diagnosis: 1.) Right foot diabetic wound, 2.) Necrotic soft tissue down to Achilles tendon Postoperative diagnosis: Same Procedure in detail: 1.) Excision of necrotic soft tissue down to Achilles tendon right foot 2.) Application of skin graft Surgeon: Dr. Brasher Trust Manager Assistant: none Anesthesia: Local monitored anesthesia care Hemostasis: none Estimated blood loss: 0 ml Specimens: None Procedure in detail: Under mild sedation the patient was brought in the operating room and placed on the operating table in lazy lateral position. Following sedation the foot and ankle were prepped scrubbed and draped in the usual aseptic manner. Attention was then directed to right foot diabetic non healing wound with exposed necrotic muscle and tendon. The wound measures roughly 2.4 cm x 2.3 cm x 0.3 cm. Utilizing a sharp, sterile, #15 blade of extensive debridement of necrotic devitalized soft tissue was achieved. The wound bed was voided of non- viable tissue in preparation for skin graft. All bleeders were ligated and cauterized as necessary. Normal saline was utilized to flush the wound. At this time a 3 inch x 6 inch theraskin graft was chosen for application. The graft was placed in warm saline bath for 5 minutes prior to application. The Theraskin graft was applied with out incident to the skin deficit and sutured in placed with 4-0 nylon simple sutures and covered with sterile adaptic. The wound was covered with sterile 4x4 gauze, kerlix, Claude. The Patient tolerated procedure and anesthesia well he was transferred to recovery room vital signs stable. Following a period of postoperative monitoring the patient will be discharged back to floor on the following written and postoperative oral instructions. Keep dressing clean dry and intact, avoid ambulation. Dr. Brasher for all postoperative care if any problems arise. I attest to the content of the Intraoperative Record and any orders documented therein. Any exceptions are noted below.
--- NOTE | 2022-11-27 12:29 | Discharge Summary ---
Discharge Summary Date of Service November 27, 2022 Notes For Next Care Provider Medication Changes From Visit Augmentin 875mg po bid x 10 days Admission HPI Per Admitting Provider The patient is a 37-year-old male with a past medical history including diabetic foot ulcer, diabetes mellitus type 1, diabetic peripheral neuropathy, poorly controlled type 1 diabetes, major depressive disorder recurrent, GERD, tobacco use disorder, B12 deficiency. The patient has been noncompliant with his treatment for his heel ulcer, with having left AMA on 3 occasions within the past 2 months: On 10/06, on 10/11, and 10/19. He states that he will not leave AMA this visit, and wants to get his chronic heel infection cleared up Principal Dx & Hospital Course #1 = Principal Diagnosis (1) Diabetic foot ulcer associated with type 1 diabetes mellitus: Diabetic foot ulcer right heel- Patient has been admitted 3 times within the past 2 months, and each time left AMA early in admission With heel eschar, xray foot without OM, no fevers or leukocytosis, has some erythema surrounding WOund Culture with MSSA resistant to erythromycin only Received daptomycin IV and Zosyn for broad spectrum coverage and will transition to Augmentin 875mg po bid x 10 more days on discharge s/p heel debridement and skin graft with Dr. Brasher of Podiatry on 11/27 will need close outpt Podiatry follow up (2) Diabetic peripheral neuropathy associated with type 1 diabetes mellitus: noted, has special DM shoes continue gabapentin (3) Poorly controlled type 1 diabetes mellitus: Diabetes mellitus type 1/associated peripheral neuropathy- with hypoglycemia initially and insulin amounts were decreased, now with hyperglycemia BMP normal without DKA continue home doses of insulin on discharge (4) Major depressive disorder, recurrent severe without psychotic features: not on meds (5) Smoker: Tobacco use disorder/asthma- Continue albuterol HFA Advised tobacco cessation (6) Medical non-compliance: Plan Dispo-dc to home Discharge Exam Constitutional WD/WN, vitals as above Respiratory normal respiratory effort, lungs clear to auscultation Cardiovascular Rate/Rhythm: regular rate and regular rhythm Extremities: + edema (1+ pitting edema legs bilat) Skin right foot in dressing post op and not removed Updated Medication List Medication Instructions Recorded Confirmed Type insulin syringe-needle U-100 0.3 #100 ea 07/31/21 11/25/22 Rx mL 31 gauge x 15/64" albuterol sulfate 90 mcg/actuation 2 puff inhalation Q6H PRN 06/07/22 11/25/22 Rx aerosol inhaler shortness of breath or wheezing #8.5 grams acetaminophen 500 mg tablet 1,000 mg PO Q8 PRN Pain 08/19/22 11/25/22 History (Tylenol Extra Strength) blood sugar diagnostic (OneTouch #100 ea 08/22/22 11/25/22 Rx Verio test strips) blood-glucose meter (OneTouch #1 ea 08/22/22 11/25/22 Rx Verio Reflect Meter) lancets 33 gauge (OneTouch Delica #100 ea 08/22/22 11/25/22 Rx Lancets) insulin lispro 100 unit/mL 20 unit (0.2 mL) subcut TID #15 mL 08/29/22 11/25/22 Rx subcutaneous pen (Humalog KwikPen (U-100) Insulin) ondansetron HCl 4 mg tablet 4 mg PO TID PRN NAUSEA/VOMITING 10/04/22 11/25/22 History insulin glargine 100 unit/mL (3 15 unit subcut BID 10/13/22 11/25/22 History mL) subcutaneous pen (Lantus Solostar U-100 Insulin) gabapentin 100 mg capsule 200 mg PO TID pain #90 caps 10/27/22 11/25/22 Rx amoxicillin 875 mg-potassium 1 tab PO BID #20 tabs 11/27/22 Rx clavulanate 125 mg tablet Hospital Stay Data Consultations 11/25/22 00:48 ED Decision to Admit Stat 11/25/22 09:47 Consult Podiatry Routine Procedures Performed Operation Date: 11/27/22 07:30 Actual Procedures p Right Heel Wound Debridement with skin substitute(Right) - Lam Brasher DPM, MS Diagnostic Imagining Performed 11/25/22 US venous doppler LE RT Stat Pending Results Patient Have Any Pending Studies at Discharge: No Discharge Instructions Given to Patient (Per Discharging Provider) Continue taking Augmentin twice a day x 10 days. Follow up with the Sack Maker, Dr. Brasher, for your surgery. Total Time Total Time Spent Total Time Spent (In Minutes): 35 min Coding Level of Care Code 98626 INP/OBS DISCH >30 MIN Diagnoses Diabetic foot ulcer associated with type 1 diabetes mellitus E10.621; L97.509 Diabetic peripheral neuropathy associated with type 1 diabetes mellitus E10.42 Poorly controlled type 1 diabetes mellitus E10.65 Major depressive disorder, recurrent severe without psychotic features F33.2 Smoker F17.200 Medical non-compliance Z91.199
== END 2022-11-27 14:22 | disposition home or self-care (01) | DRG 264 ==
LOC: ED 22:09 → SUATTDRO 11-25 01:53 → EDINP 11-25 01:53 → 3E 11-25 04:42

== ENCOUNTER 2023-01-24 22:19 | Inpatient (IN) ==
[2023-01-24] MEDS ORDERED: SODIUM CHLORIDE 0.9% 1,000 ML IV ONE (22:54)
--- NOTE | 2023-01-24 23:04 | Emergency Department Note ---
Impression & Plan DKA (diabetic ketoacidosis) ADMIT ED Provider Note HPI: History obtained from patient. The patient is a 37-year-old male with history of poorly controlled type 1 diabe arabella, presents emergency department with chief complaint of nausea and vomiting and lower chest discomfort. Patient states his symptoms have been ongoing throughout the day today. He is an otherwise limited/vague historian on arrival. Patient is noted to be tachycardic in the 140s on arrival consistent with sinus tachycardia on the monitor. He is otherwise hemodynamically stable. ROS: - Per HPI Differential Diagnosis: Diabetic ketoacidosis, viral gastroenteritis, acute coronary syndrome, pulmonary embolism, pneumonia, sepsis, amongst other potential pathologies. *Outpatient medications and allergy history reviewed. *Pertinent external medical records reviewed PE: General: Alert HEENT: Normocephalic, trachea midline Eyes: Extraocular eye movement is intact, no scleral erythema Pulmonary: Clear to auscultation bilaterally, no wheezing Cardio: Tachycardic rate with regular rhythm GI: Abdomen is soft to palpation : No suprapubic tenderness MSK: No evidence of trauma or malformation of the extremities, no edema Skin: No evidence of rash Neuro: Alert, no focal deficits Psychiatric: Cooperative INDEPENDENT INTERPRETATIONS: gambling monitor: (As interpreted by myself): - An order was placed for continuous cardiac monitoring - Patient was noted to be in sinus tachycardia with a rate of 142 EKG: (As interpreted by myself): Rate: 144 Rhythm: Sinus tachycardia Intervals: QTc 541 ms, otherwise within normal limits ST changes: No ST elevation Time: 2230 Interventions provided in ED: -IV fluid bolus, IV normal saline bolus with KCl, insulin bolus and drip, IV Zofran, IV bicarb bolus Medical Decision Making: IV was established and lab work obtained, patient was placed on laboratory monitor. Lab work shows a leukocytosis of 15.8, hemoglobin is stable at 13.7, platelet count is normal at 384, VBG shows acidosis at 7.23 with slightly low PCO2 suggestive of metabolic acidosis. CMP shows a potassium of 3.6, glucose is elevated at 316, there is anion gap elevation of 34, serum bicarbonate level is only 11. Creatinine is elevated at 1.7. Patient was initiated on IV fluids as well as IV potassium repletion. Insulin drip was ordered. Chest x-ray per my interpretation does not show any evidence of pneumonia. Unclear source for the patient's leukocytosis at this time, blood cultures were ordered and will defer antibiotics at this time given no obvious source for infection. Case was discussed with the on-call hospitalist, Dr. Carey, and the patient will be admitted in improved condition for management of DKA. Consultants/Discussions held with other healthcare providers: -Hospitalist, Dr. Carey * CRITICAL CARE TIME: (49 ) minutes -Stabilization of patient with DKA requiring initiation of insulin drip, interpr etation of diagnostic studies including multiple pieces of lab work and VBG, time spent at the bedside, discussion with other physicians and arrangement of admission Diagnosis: 1. Diabetic ketoacidosis, acute 2. Lactic acidosis, acute 3. Elevated creatinine, acute 4. Leukocytosis, acute, nonspecific 5. Nausea and vomiting, acute Disposition: Admission Sam Kevin DO Emergency Medicine Past Med/Surg History Medical History Medical non-compliance Surgical History No significant past surgical history Family History Other Diabetes Social History Smoking Status: Current every day smoker Tobacco Type: Cigarettes Cigarettes Per Day: 1 pack; Second Hand Exposure: No; Do You Dip or Chew Tobacco: No; Hx Alcohol Use: No Hx Substance Use: Yes Prescribed Medications: Marijuana Preferred Language: Mauritanian Communication Ability: Effective Visual Impairment: Limited Hearing Ability: Normal Psychometric Examiner Required: No Beliefs That Will Affect Care: None marital status: Single Current Living Situation: Other Current Living Situation Comment: Lives with friends current occupational status: disabled How many Children do You have: 0 Feels Safe at Home: Yes Childhood Exposure to Second-Hand Smoke: No Diet: diabetic and regular caffeine: Yes during the past year weight has: remained stable Dental Care, Regularly: Yes Physical Activity Frequency: Daily Seatbelt Use: always Sunscreen Use: No Do you think of yourself as: straight/heterosexual Sexual Activity: has been sexually active within the last 12 months Gender Identity: Male Assistive Devices: None Allergies Allergies Allergy/AdvReac Type Severity Reaction Status Date / Time codeine Allergy Intermediate Rash Verified 12/08/22 10:20 erythromycin base Allergy Unknown HAPPENED Verified 12/08/22 10:20 A SMALL CHILD Home Meds Home Medications Medication Instructions Recorded Confirmed acetaminophen 500 mg tablet 1,000 mg PO Q8 PRN Pain 08/19/22 01/25/23 (Tylenol Extra Strength) ondansetron HCl 4 mg tablet 4 mg PO TID PRN NAUSEA/VOMITING 10/04/22 01/25/23 insulin glargine 100 unit/mL (3 40 unit subcut BID 10/13/22 01/25/23 mL) subcutaneous pen (Lantus Solostar U-100 Insulin) Previous Rx's Medication Instructions Recorded insulin syringe-needle U-100 0.3 #100 ea 07/31/21 mL 31 gauge x 15/64" albuterol sulfate 90 mcg/actuation 2 puff inhalation Q6H PRN 06/07/22 aerosol inhaler shortness of breath or wheezing #8.5 grams blood sugar diagnostic (NuConomyTouch #100 ea 08/22/22 Verio test strips) blood-glucose meter (NuConomyTouch #1 ea 08/22/22 Verio Reflect Meter) lancets 33 gauge (OneTouch Delica #100 ea 08/22/22 Lancets) gabapentin 100 mg capsule 200 mg PO TID pain #90 caps 12/20/22 insulin lispro 100 unit/mL 20 unit (0.2 mL) subcut TID #15 mL 12/20/22 subcutaneous pen (Humalog KwikPen (U-100) Insulin) Results & Data (ED) Vital Signs Vital Signs - 24 hr 01/24/23 22:29 01/24/23 22:29 01/24/23 22:29 Temperature 36.4 C L Temperature Source Oral Pulse Rate 145 H Pulse Rate [Finger] Pulse Rhythm [Finger] Pulse Strength [Finger] Respiratory Rate 22 Respiratory Effort / Characteristics Non-Labored Spontaneous Respiratory Depth Normal Respiratory Pattern Regular Blood Pressure 104/70 Blood Pressure [Right Arm] Blood Pressure Mean 81 Blood Pressure Mean [Right Arm] Blood Pressure Position [Right Arm] Pulse Oximetry 99 99 99 Oxygen Delivery Method Room Air Room Air Room Air Oxygen Flow Rate 0 Sepsis Recent Fever Within 48 Hours No Sepsis New/Unexplained Change in Mental Status N/A Sepsis Action Taken by Nursing Physician Notified 01/24/23 22:39 01/25/23 00:24 01/25/23 02:17 Temperature Temperature Source Pulse Rate 144 H Pulse Rate [Finger] 138 H 131 H Pulse Rhythm [Finger] Regular Pulse Strength [Finger] Normal Respiratory Rate 20 20 Respiratory Effort / Characteristics Non-Labored Spontaneous Respiratory Depth Normal Respiratory Pattern Blood Pressure Blood Pressure [Right Arm] 100/73 134/88 Blood Pressure Mean Blood Pressure Mean [Right Arm] 82 103 Blood Pressure Position [Right Arm] Sitting Sitting Pulse Oximetry 98 100 Oxygen Delivery Method Room Air Room Air Oxygen Flow Rate Sepsis Recent Fever Within 48 Hours Sepsis New/Unexplained Change in Mental Status Sepsis Action Taken by Nursing Laboratory Data 01/24/23 23:20 01/25/23 01:39 Lab Results 01/24/23 01/24/23 01/24/23 Range/Units 23:20 23:20 23:20 WBC 15.86 H (4.8-10.8) K/ul RBC 4.25 L (4.70-6.10) M/uL Hgb 13.7 L (14.0-18.0) g/dl Hct 40.8 L (42.0-52.0) % MCV 96.0 (80.0-100.0) fL MCH 32.2 (25.0-34.0) pg MCHC 33.6 (32.0-36.0) g/dL RDW Std Deviation 47.6 H (36.4-46.3) fL RDW Coeff of Margarita 13.3 (11.5-14.5) % Plt Count 384 (130-400) K/uL MPV 9.2 L (9.4-12.4) fL Immature Gran % (Auto) 1.6 % Neut % (Auto) 77.6 % Lymph % (Auto) 14.0 % Burke % (Auto) 5.9 % Eos % (Auto) 0.3 % Baso % (Auto) 0.6 % Neut # (Auto) 12.32 H (1.40-6.50) K/uL Lymph # (Auto) 2.22 (1.20-3.40) K/uL Burke # (Auto) 0.94 H (0.11-0.59) K/uL Eos # (Auto) 0.04 (0.00-0.50) K/uL Baso # (Auto) 0.09 (0.00-0.20) K/uL Immature Gran # (Auto) 0.25 H (0.01-0.20) K/uL PT 9.9 (9.0-12.0) Seconds INR 0.9 (0.9-1.1) VBG pH (7.36-7.41) VBG pCO2 (38-50) mmHg VBG pO2 mmHg VBG HCO3 mmol/L VBG O2 Saturation % VBG Base Excess mEq/L Sodium 136 (136-145) mmol/L Potassium 3.6 (3.5-5.1) mmol/L Chloride 91 L (98-107) mmol/L Carbon Dioxide 11 L (21-32) mmol/L Anion Gap 34 H (3-11) BUN 24 H (6-23) mg/dl Creatinine 1.70 H (0.6-1.4) mg/dl Est Cr Clr Drug Dosing 51.9 ml/min Est GFR ( Amer) 57.6 ml/min Est GFR (Non-Af Amer) 49.7 ml/min BUN/Creatinine Ratio 14.1 (10-20) Glucose 316 H* (70-99(Fasting)) mg/dl POC Glucose (70-99) mg/dl Lactate (0.4-2.0) mmol/L Calcium 9.5 (8.6-10.3) mg/dl Phosphorus (2.5-4.9) mg/dl Magnesium (1.7-2.4) mg/dl Total Bilirubin 0.3 (0.2-1.0) mg/dl AST 27 (13-39) U/L ALT 24 (7-52) U/L Alkaline Phosphatase 151 H (34-104) U/L Troponin I High Sens 5.6 (0-20) pg/ml Total Protein 7.5 (6.0-8.3) gm/dl Albumin 4.2 (3.4-5.0) gm/dl Globulin 3.3 (2.5-4.0) gm/dl Albumin/Globulin Ratio 1.3 (0.9-2) Lipase 6 L (11-82) U/L 01/24/23 01/24/23 01/25/23 Range/Units 23:20 23:20 01:05 WBC (4.8-10.8) K/ul RBC (4.70-6.10) M/uL Hgb (14.0-18.0) g/dl Hct (42.0-52.0) % MCV (80.0-100.0) fL MCH (25.0-34.0) pg MCHC (32.0-36.0) g/dL RDW Std Deviation (36.4-46.3) fL RDW Coeff of Margarita (11.5-14.5) % Plt Count (130-400) K/uL MPV (9.4-12.4) fL Immature Gran % (Auto) % Neut % (Auto) % Lymph % (Auto) % Burke % (Auto) % Eos % (Auto) % Baso % (Auto) % Neut # (Auto) (1.40-6.50) K/uL Lymph # (Auto) (1.20-3.40) K/uL Burke # (Auto) (0.11-0.59) K/uL Eos # (Auto) (0.00-0.50) K/uL Baso # (Auto) (0.00-0.20) K/uL Immature Gran # (Auto) (0.01-0.20) K/uL PT (9.0-12.0) Seconds INR (0.9-1.1) VBG pH 7.23 L (7.36-7.41) VBG pCO2 26 L (38-50) mmHg VBG pO2 56 mmHg VBG HCO3 11 mmol/L VBG O2 Saturation 87.3 % VBG Base Excess -15.0 mEq/L Sodium (136-145) mmol/L Potassium (3.5-5.1) mmol/L Chloride (98-107) mmol/L Carbon Dioxide (21-32) mmol/L Anion Gap (3-11) BUN (6-23) mg/dl Creatinine (0.6-1.4) mg/dl Est Cr Clr Drug Dosing ml/min Est GFR ( Amer) ml/min Est GFR (Non-Af Amer) ml/min BUN/Creatinine Ratio (10-20) Glucose (70-99(Fasting)) mg/dl POC Glucose 133 H (70-99) mg/dl Lactate 6.7 H* (0.4-2.0) mmol/L Calcium (8.6-10.3) mg/dl Phosphorus (2.5-4.9) mg/dl Magnesium (1.7-2.4) mg/dl Total Bilirubin (0.2-1.0) mg/dl AST (13-39) U/L ALT (7-52) U/L Alkaline Phosphatase (34-104) U/L Troponin I High Sens (0-20) pg/ml Total Protein (6.0-8.3) gm/dl Albumin (3.4-5.0) gm/dl Globulin (2.5-4.0) gm/dl Albumin/Globulin Ratio (0.9-2) Lipase (11-82) U/L 01/25/23 01/25/23 01/25/23 Range/Units 01:39 01:39 01:39 WBC (4.8-10.8) K/ul RBC (4.70-6.10) M/uL Hgb (14.0-18.0) g/dl Hct (42.0-52.0) % MCV (80.0-100.0) fL MCH (25.0-34.0) pg MCHC (32.0-36.0) g/dL RDW Std Deviation (36.4-46.3) fL RDW Coeff of Margarita (11.5-14.5) % Plt Count (130-400) K/uL MPV (9.4-12.4) fL Immature Gran % (Auto) % Neut % (Auto) % Lymph % (Auto) % Burke % (Auto) % Eos % (Auto) % Baso % (Auto) % Neut # (Auto) (1.40-6.50) K/uL Lymph # (Auto) (1.20-3.40) K/uL Burke # (Auto) (0.11-0.59) K/uL Eos # (Auto) (0.00-0.50) K/uL Baso # (Auto) (0.00-0.20) K/uL Immature Gran # (Auto) (0.01-0.20) K/uL PT (9.0-12.0) Seconds INR (0.9-1.1) VBG pH 7.42 H (7.36-7.41) VBG pCO2 (38-50) mmHg VBG pO2 mmHg VBG HCO3 mmol/L VBG O2 Saturation % VBG Base Excess mEq/L Sodium 141 (136-145) mmol/L Potassium 3.7 (3.5-5.1) mmol/L Chloride 96 L (98-107) mmol/L Carbon Dioxide 21 (21-32) mmol/L Anion Gap 24 H (3-11) BUN 24 H (6-23) mg/dl Creatinine 1.53 H (0.6-1.4) mg/dl Est Cr Clr Drug Dosing 57.7 ml/min Est GFR ( Amer) 65.4 ml/min Est GFR (Non-Af Amer) 56.4 ml/min BUN/Creatinine Ratio 15.7 (10-20) Glucose 115 H (70-99(Fasting)) mg/dl POC Glucose (70-99) mg/dl Lactate 3.8 H* (0.4-2.0) mmol/L Calcium 9.3 (8.6-10.3) mg/dl Phosphorus 2.5 (2.5-4.9) mg/dl Magnesium 2.4 (1.7-2.4) mg/dl Total Bilirubin (0.2-1.0) mg/dl AST (13-39) U/L ALT (7-52) U/L Alkaline Phosphatase (34-104) U/L Troponin I High Sens (0-20) pg/ml Total Protein (6.0-8.3) gm/dl Albumin (3.4-5.0) gm/dl Globulin (2.5-4.0) gm/dl Albumin/Globulin Ratio (0.9-2) Lipase (11-82) U/L 01/25/23 Range/Units 02:16 WBC (4.8-10.8) K/ul RBC (4.70-6.10) M/uL Hgb (14.0-18.0) g/dl Hct (42.0-52.0) % MCV (80.0-100.0) fL MCH (25.0-34.0) pg MCHC (32.0-36.0) g/dL RDW Std Deviation (36.4-46.3) fL RDW Coeff of Margarita (11.5-14.5) % Plt Count (130-400) K/uL MPV (9.4-12.4) fL Immature Gran % (Auto) % Neut % (Auto) % Lymph % (Auto) % Burke % (Auto) % Eos % (Auto) % Baso % (Auto) % Neut # (Auto) (1.40-6.50) K/uL Lymph # (Auto) (1.20-3.40) K/uL Burke # (Auto) (0.11-0.59) K/uL Eos # (Auto) (0.00-0.50) K/uL Baso # (Auto) (0.00-0.20) K/uL Immature Gran # (Auto) (0.01-0.20) K/uL PT (9.0-12.0) Seconds INR (0.9-1.1) VBG pH (7.36-7.41) VBG pCO2 (38-50) mmHg VBG pO2 mmHg VBG HCO3 mmol/L VBG O2 Saturation % VBG Base Excess mEq/L Sodium (136-145) mmol/L Potassium (3.5-5.1) mmol/L Chloride (98-107) mmol/L Carbon Dioxide (21-32) mmol/L Anion Gap (3-11) BUN (6-23) mg/dl Creatinine (0.6-1.4) mg/dl Est Cr Clr Drug Dosing ml/min Est GFR ( Amer) ml/min Est GFR (Non-Af Amer) ml/min BUN/Creatinine Ratio (10-20) Glucose (70-99(Fasting)) mg/dl POC Glucose 95 (70-99) mg/dl Lactate (0.4-2.0) mmol/L Calcium (8.6-10.3) mg/dl Phosphorus (2.5-4.9) mg/dl Magnesium (1.7-2.4) mg/dl Total Bilirubin (0.2-1.0) mg/dl AST (13-39) U/L ALT (7-52) U/L Alkaline Phosphatase (34-104) U/L Troponin I High Sens (0-20) pg/ml Total Protein (6.0-8.3) gm/dl Albumin (3.4-5.0) gm/dl Globulin (2.5-4.0) gm/dl Albumin/Globulin Ratio (0.9-2) Lipase (11-82) U/L Administered Medications Potassium Chloride/Sodium Chloride (Normal Saline W/20 Meq Kcl) 20 meq in 1,000 mls @ 150 mls/hr IV .Q6H40M [facility]; Protocol Stop: 02/24/23 00:29 Last Admin: 01/25/23 00:38 Dose: 150 mls/hr Documented By: LUIS Insulin Human Regular 250 (units/ Sodium Chloride) 250 mls @ 6 mls/hr IV .Q24H RISSA; Protocol Stop: 02/24/23 00:29 Last Admin: 01/25/23 01:05 Dose: 6 units/hr, 6 mls/hr Documented By: LUIS Co-signed By: PRINCE Discontinued Medications Sodium Chloride (Nss) 1,000 mls @ 999 mls/hr IV .Q1H1M ONE Stop: 01/24/23 23:54 Last Admin: 01/24/23 23:51 Dose: 999 mls/hr Documented By: LUIS Sodium Chloride (Nss) 2,000 mls @ 999 mls/hr IV .Q2H1M ONE Stop: 01/25/23 01:44 Last Admin: 01/25/23 00:35 Dose: 999 mls/hr Documented By: LUIS Insulin Human Regular (Novolin-R Bolus From Bag) 6 units IV ONE ONE Stop: 01/25/23 00:46 Last Admin: 01/25/23 01:07 Dose: 6 units Documented By: LUIS Co-signed By: PRINCE Potassium Chloride (Potassium Chloride Pwd 20 Meq Pack) 40 meq PO ONCE ONE Stop: 01/25/23 00:22 Last Admin: 01/25/23 01:08 Dose: 40 meq Documented By: LUIS Sodium Bicarbonate (Sodium Bicarb 8.4% Inj 50 Meq/50 Ml Syr) 50 meq IV NOW STA Stop: 01/25/23 00:20 Last Admin: 01/25/23 00:28 Dose: 50 meq Documented By: LUIS Discharge Plan Visit Data Chief Complaint: Cardiac Assessment Stated Complaint: NAUSEA, VOMITING, TACHYCARDIC ED Provider: Sam Kevin Discharge Problem: DKA (diabetic ketoacidosis) Forms Stand Alone Forms: [facility] Prescriptions Prescriptions: No Action albuterol sulfate 90 mcg/actuation HFA aerosol inhaler 2 puff inhalation Q6H PRN (Reason: shortness of breath or wheezing) Qty: 8.5 5RF gabapentin 100 mg capsule 200 mg PO TID Qty: 90 11RF insulin lispro [Humalog KwikPen Insulin] 100 unit/mL insulin pen 20 unit subcut TID Qty: 15 3RF (DME) OneTouch Verio test strips Strip See Rx Instructions .Route Qty: 100 1RF Rx Instructions: check blood sugar at least 3 times a day (DME) blood-glucose meter [OneTouch Verio Reflect Meter] Misc See Rx Instructions .Route Qty: 1 0RF Rx Instructions: check blood sugars TID (DME) lancets [NuConomyTouch Delica Lancets] 33 gauge misc See Rx Instructions .Route Qty: 100 3RF Rx Instructions: check blood sugars at least 3 times a day acetaminophen [Tylenol Extra Strength] 500 mg tablet 1,000 mg PO Q8 PRN (Reason: Pain) (DME) insulin syringe-needle U-100 0.3 mL 31 gauge x 15/64" syringe See Rx Instructions .Route Qty: 100 0RF Rx Instructions: As directed ondansetron HCl 4 mg tablet 4 mg PO TID PRN (Reason: NAUSEA/VOMITING) insulin glargine [Lantus Solostar U-100 Insulin] 100 unit/mL (3 mL) insulin pen 40 unit subcut BID Referrals Referrals: Carolyn Story MD [Primary Care Provider] -
[2023-01-24 23:42] LABS: HCO3 VBG 11 mmol/L; Oxygen Saturation VBG 87.3 %; PCO2 VBG 26 mmHg (38-50); PO2 VBG 56 mmHg; pH VBG 7.23 (7.36-7.41)
[2023-01-24] MEDS ORDERED: SODIUM CHLORIDE 0.9% 2,000 ML IV ONE (23:44)
[2023-01-25 00:10] LABS: Basophils # (auto) 0.09 K/uL (0.00-0.20); Basophils % (auto) 0.6 %; Eosinophils # (auto) 0.04 K/uL (0.00-0.50); Eosinophils % (auto) 0.3 %; Hematocrit (blood only) 40.8 % (42.0-52.0); Hemoglobin 13.7 g/dl (14.0-18.0); Immature Granulocytes # (auto) 0.25 K/uL (0.01-0.20); Immature Granulocytes % (auto) 1.6 %; Lymphocytes # (auto) 2.22 K/uL (1.20-3.40); Mean Corpuscular Hemoglobin 32.2 pg (25.0-34.0); Mean Corpuscular Hgb Conc 33.6 g/dL (32.0-36.0); Mean Platelet Volume 9.2 fL (9.4-12.4); Monocytes # (auto) 0.94 K/uL (0.11-0.59); Monocytes % (auto) 5.9 %; Neutrophils # (auto) 12.32 K/uL (1.40-6.50); Neutrophils % (auto) 77.6 %; Platelet Count 384 K/uL (130-400); RDW Coefficient of Variation 13.3 % (11.5-14.5); RDW Standard Deviation 47.6 fL (36.4-46.3); Red Blood Count 4.25 M/uL (4.70-6.10); White Blood Count 15.86 K/ul (4.8-10.8)
[2023-01-25 00:17] LABS: Albumin Globulin Ratio 1.3 (0.9-2); Albumin Level 4.2 gm/dl (3.4-5.0); BUN Creatinine Ratio 14.1 (10-20); Bilirubin,Total 0.3 mg/dl (0.2-1.0); Calcium 9.5 mg/dl (8.6-10.3); Creatinine Clr Calc Pharmacy 51.9 ml/min; Est GFR (African American) 57.6 ml/min; Est GFR (Non-African American) 49.7 ml/min; Globulin 3.3 gm/dl (2.5-4.0); INR 0.9 (0.9-1.1); Potassium 3.6 mmol/L (3.5-5.1); Prothrombin Time 9.9 Seconds (9.0-12.0); Total Protein 7.5 gm/dl (6.0-8.3); Troponin I High Sensitivity 5.6 pg/ml (0-20)
[2023-01-25] MEDS ORDERED: SODIUM BICARB 8.4% INJ 50 MEQ/50 ML SYR IV STA (00:19)
[2023-01-25] MEDS ORDERED: PHARMACY GLYCEMIC MGMT CONSULT PRN (00:21)
[2023-01-25] MEDS ORDERED: STAT IV Infusion **Titration per Protocol STA (00:21)
[2023-01-25] MEDS ORDERED: DKA GOAL RANGE 150-250 mg/dl ONE ×2 (00:21→04:03)
[2023-01-25] MEDS ORDERED: POTASSIUM CHLORIDE PWD 20 MEQ PACK PO ONE (00:21)
[2023-01-25] MEDS ORDERED: NSS + 20MEQ KCL 20 MEQ/1,000 ML BAG IV SCH ×2 (00:30→11:45)
[2023-01-25] MEDS ORDERED: INSULIN REGULAR 250 UNITS in SODIUM CHLORIDE 0.9% 247.5 ML IV SCH (00:30)
[2023-01-25] MEDS ORDERED: NovoLIN-R BOLUS FROM BAG IV ONE (00:45)
--- NOTE | 2023-01-25 01:30 | History & Physical Report ---
Date of Service January 25, 2023 Assessment & Plan (1) DKA (diabetic ketoacidosis): Plan: Initial VBG on presentation 10/30/25, anion gap of 34 and HCO3 of 11. Glucose of 316. Lactate elevated at 6.7 which has since improved to 3.8 following IVF. -Admit to PCU -Keep NPO for now -BSG check q hourly -Awaiting UA and culture -Check BMP, Mg, VBG and PO4 q 4 hours to monitor anion gap and metabolic profile - next blood draw is due at 05:30 -Continue IVF - Dextrose containing fluid ordered as needed -Continue insulin drip per protocol -Continue Neurontin History of Present Illness Chief Complaint: abdominal pain, nausea and vomiting Primary Care Provider: Carolyn Story MD Laron Bradford is a 37yo male with history of Type-I DM, medication noncompliance presenting with nausea and vomiting as well as diarrhea that started earlier today. He reports compliance with his insulin, no missed doses. No report of fever, chills, abdominal pain. He did have some chest pain and shortness of breath prior to arrival. No additional complaints. In the ER he is afebrile, tachycardic ER Course: NSS x 3L NaHCO3 x 50mEq x 1 KCl 20mEq Insulin drip Potassium 40mEq Allergies Allergy/AdvReac Type Severity Reaction Status Date / Time codeine Allergy Intermediate Rash Verified 12/08/22 10:20 erythromycin base Allergy Unknown HAPPENED Verified 12/08/22 10:20 A SMALL CHILD Home Medications Medication Instructions Recorded Confirmed Type insulin syringe-needle U-100 0.3 #100 ea 07/31/21 01/25/23 Rx mL 31 gauge x 15/64" albuterol sulfate 90 mcg/actuation 2 puff inhalation Q6H PRN 06/07/22 01/25/23 Rx aerosol inhaler shortness of breath or wheezing #8.5 grams acetaminophen 500 mg tablet 1,000 mg PO Q8 PRN Pain 08/19/22 01/25/23 History (Tylenol Extra Strength) blood sugar diagnostic ([employer] #100 ea 08/22/22 01/25/23 Rx Verio test strips) blood-glucose meter ([employer] #1 ea 08/22/22 01/25/23 Rx Verio Reflect Meter) lancets 33 gauge (OneTouch [employer] #100 ea 08/22/22 01/25/23 Rx Lancets) ondansetron HCl 4 mg tablet 4 mg PO TID PRN NAUSEA/VOMITING 10/04/22 01/25/23 History insulin glargine 100 unit/mL (3 40 unit subcut BID 10/13/22 01/25/23 History mL) subcutaneous pen (Lantus Solostar U-100 Insulin) gabapentin 100 mg capsule 200 mg PO TID pain #90 caps 12/20/22 01/25/23 Rx insulin lispro 100 unit/mL 20 unit (0.2 mL) subcut TID #15 mL 12/20/22 01/25/23 Rx subcutaneous pen (Humalog KwikPen (U-100) Insulin) Past Med/Surg History Medical History Medical non-compliance Surgical History No significant past surgical history Family History Other Diabetes Social History Smoking Status: Current every day smoker Tobacco Type: Cigarettes Cigarettes Per Day: 1 pack; Second Hand Exposure: No; Do You Dip or Chew Tobacco: No; Hx Alcohol Use: No Hx Substance Use: No Preferred Language: French Communication Ability: Effective Visual Impairment: Limited Hearing Ability: Normal Examination Scorer Required: No Beliefs That Will Affect Care: None marital status: Single Current Living Situation: Other Current Living Situation Comment: Lives with friends current occupational status: disabled How many Children do You have: 0 Other Information That Helps Us Care for You: No Feels Safe at Home: Yes Safety Concerns: Feels Safe At This Time Childhood Exposure to Second-Hand Smoke: No Diet: diabetic and regular caffeine: Yes during the past year weight has: remained stable Dental Care, Regularly: Yes Physical Activity Frequency: Daily Seatbelt Use: always Sunscreen Use: No Do you think of yourself as: straight/heterosexual Sexual Activity: has been sexually active within the last 12 months Gender Identity: Male Assistive Devices: None Review of Systems Review of Systems: All systems reviewed & are unremarkable except as noted in HPI & below Physical Exam Physical Exam: General: patient somnolent, arousable, ill in appearance Skin: warm, dry, intact, no rashes or lesions HEENT: NC/AT, PERRL, EOMI, anicteric sclera, conjunctiva without injection, external ear normal to inspection and nontender, nares patent, dry mucus membranes, dentition intact, no oropharyngeal lesions, neck supple, trachea midline, no LAD, no thyromegaly, no JVD Heart: +S1/S2, regular, tachycardic, no m/r/g Lungs: equal air entry bilaterally, no rales/rhonchi/wheezes Abd: +BS, soft, NT/ND, no masses/organomegaly/ascites Ext: warm, 2+ pulses in UE/LE bilaterally, no clubbing/cyanosis or edema Neuro: nonfocal, speech intact, no facial droop, moving all extremities on command with equal strength 5/5 Results & Data Results & Data Vital Signs (Past 12 Hours) Vital Signs Temp Pulse Pulse Resp BP BP Pulse Ox 01/25/23 00:24 138 H 20 100/73 98 01/24/23 22:39 144 H 01/24/23 22:29 99 01/24/23 22:29 99 01/24/23 22:29 36.4 C L 145 H 22 104/70 99 O2 Del Method O2 Flow Rate 01/25/23 00:24 Room Air 01/24/23 22:39 01/24/23 22:29 Room Air 01/24/23 22:29 Room Air 0 01/24/23 22:29 Room Air Laboratory Results Laboratory Results WBC 15.86 K/ul (4.8-10.8) H 01/24/23 23:20 RBC 4.25 M/uL (4.70-6.10) L 01/24/23 23:20 Hgb 13.7 g/dl (14.0-18.0) L 01/24/23 23:20 Hct 40.8 % (42.0-52.0) L 01/24/23 23:20 MCV 96.0 fL (80.0-100.0) 01/24/23 23:20 MCH 32.2 pg (25.0-34.0) 01/24/23 23:20 MCHC 33.6 g/dL (32.0-36.0) 01/24/23 23:20 RDW Std Deviation 47.6 fL (36.4-46.3) H 01/24/23 23:20 RDW Coeff of Margarita 13.3 % (11.5-14.5) 01/24/23 23:20 Plt Count 384 K/uL (130-400) 01/24/23 23:20 MPV 9.2 fL (9.4-12.4) L 01/24/23 23:20 Immature Gran % (Auto) 1.6 % 01/24/23 23:20 Neut % (Auto) 77.6 % 01/24/23 23:20 Lymph % (Auto) 14.0 % 01/24/23 23:20 Miller % (Auto) 5.9 % 01/24/23 23:20 Eos % (Auto) 0.3 % 01/24/23 23:20 Baso % (Auto) 0.6 % 01/24/23 23:20 Neut # (Auto) 12.32 K/uL (1.40-6.50) H 01/24/23 23:20 Lymph # (Auto) 2.22 K/uL (1.20-3.40) 01/24/23 23:20 Miller # (Auto) 0.94 K/uL (0.11-0.59) H 01/24/23 23:20 Eos # (Auto) 0.04 K/uL (0.00-0.50) 01/24/23 23:20 Baso # (Auto) 0.09 K/uL (0.00-0.20) 01/24/23 23:20 Immature Gran # (Auto) 0.25 K/uL (0.01-0.20) H 01/24/23 23:20 PT 9.9 Seconds (9.0-12.0) 01/24/23 23:20 INR 0.9 (0.9-1.1) 01/24/23 23:20 VBG pH 7.42 (7.36-7.41) H 01/25/23 01:39 VBG pCO2 26 mmHg (38-50) L 01/24/23 23:20 VBG pO2 56 mmHg 01/24/23 23:20 VBG HCO3 11 mmol/L 01/24/23 23:20 VBG O2 Saturation 87.3 % 01/24/23 23:20 VBG Base Excess -15.0 mEq/L 01/24/23 23:20 Sodium 141 mmol/L (136-145) 01/25/23 01:39 Potassium 3.7 mmol/L (3.5-5.1) 01/25/23 01:39 Chloride 96 mmol/L (98-107) L 01/25/23 01:39 Carbon Dioxide 21 mmol/L (21-32) 01/25/23 01:39 Anion Gap 24 (3-11) H 01/25/23 01:39 BUN 24 mg/dl (6-23) H 01/25/23 01:39 Creatinine 1.53 mg/dl (0.6-1.4) H 01/25/23 01:39 Est Cr Clr Drug Dosing 57.7 ml/min 01/25/23 01:39 Est GFR ( Amer) 65.4 ml/min 01/25/23 01:39 Est GFR (Non-Af Amer) 56.4 ml/min 01/25/23 01:39 BUN/Creatinine Ratio 15.7 (10-20) 01/25/23 01:39 Glucose 115 mg/dl (70-99(Fasting)) H 01/25/23 01:39 POC Glucose 123 mg/dl (70-99) H 01/25/23 04:02 Lactate 3.8 mmol/L (0.4-2.0) H* 01/25/23 01:39 Calcium 9.3 mg/dl (8.6-10.3) 01/25/23 01:39 Phosphorus 2.5 mg/dl (2.5-4.9) 01/25/23 01:39 Magnesium 2.4 mg/dl (1.7-2.4) 01/25/23 01:39 Total Bilirubin 0.3 mg/dl (0.2-1.0) 01/24/23 23:20 AST 27 U/L (13-39) 01/24/23 23:20 ALT 24 U/L (7-52) 01/24/23 23:20 Alkaline Phosphatase 151 U/L (34-104) H 01/24/23 23:20 Troponin I High Sens 5.6 pg/ml (0-20) 01/24/23 23:20 Total Protein 7.5 gm/dl (6.0-8.3) 01/24/23 23:20 Albumin 4.2 gm/dl (3.4-5.0) 01/24/23 23:20 Globulin 3.3 gm/dl (2.5-4.0) 01/24/23 23:20 Albumin/Globulin Ratio 1.3 (0.9-2) 01/24/23 23:20 Lipase 6 U/L (11-82) L 01/24/23 23:20 PG Care Time/CCT Total # of Minutes Spent Total Time Spent with Patient: Total time spent is greater than 50% in coordination of care (as documented) at patient's floor/unit and/or counseling patient: Coding Level of Care Code 69817 INT INP/OBS CARE 375MIN Diagnoses DKA (diabetic ketoacidosis) E11.10
[2023-01-25 02:15] LABS: Est GFR (African American) 65.4 ml/min; Est GFR (Non-African American) 56.4 ml/min; Potassium 3.7 mmol/L (3.5-5.1)
[2023-01-25 02:16] LABS: BUN Creatinine Ratio 15.7 (10-20); Calcium 9.3 mg/dl (8.6-10.3); Creatinine Clr Calc Pharmacy 57.7 ml/min; Magnesium 2.4 mg/dl (1.7-2.4); Phosphorus 2.5 mg/dl (2.5-4.9)
[2023-01-25] MEDS ORDERED: DEXTROSE 50% 50 ML SYRINGE IV ONE (02:26)
[2023-01-25] MEDS ORDERED: DEXTROSE 50% 50 ML SYRINGE IV PRN (02:45)
[2023-01-25] MEDS ORDERED: GLUCOSE 40% GEL 15 GM TUBE PO PRN (02:45)
[2023-01-25] MEDS ORDERED: CARBOHYDRATES FOR HYPOGLYCEMIA PO PRN (02:45)
[2023-01-25] MEDS ORDERED: GLUCAGON FOR INJ 1 MG VIAL IM PRN (02:45)
[2023-01-25] MEDS ORDERED: GLUCOSE 10 TAB/TUBE PO PRN (02:45)
[2023-01-25] MEDS ORDERED: ONDANSETRON INJ 2 MG/ML 2 ML VIAL IV PRN (04:03)
[2023-01-25] MEDS ORDERED: ACETAMINOPHEN 500 MG TAB PO PRN (04:03)
[2023-01-25] MEDS ORDERED: ALBUTEROL HFA 8 GM INHALER INH PRN (04:03)
[2023-01-25] MEDS ORDERED: PENDING D5 1/2NS+20mEq KCL IVF SCH ×2 (04:03)
[2023-01-25] MEDS: D5W AND 1/2NSS + 20MEQ KCL 20 MEQ/1,000 ML BAG IV SCH ×2 (04:27→11:30)
[2023-01-25] MEDS ORDERED: PROCHLORPERAZINE 5 MG in SYRINGE 4 ML IV PRN (05:11)
[2023-01-25 05:45] LABS: Appearance Urine Clear (Clear); Bacteria Urine Automated Negative (Negative); Bilirubin Urine Negative (Negative); Blood Urine Negative (Negative); Color Urine Yellow; Epithelial Cell Urine Auto 0-5 /lpf (0-5); Glucose Urine UA 3+ (Negative); Ketones Urine 4+ (Negative); Leukocyte Esterase Urine Negative (Negative); Nitrite Urine Negative (Negative); Protein Urine 1+ (Negative); RBC Urine Automated 0-4 /hpf (0-4); Specific Gravity Urine 1.023 (1.000-1.030); Urobilinogen Urine Negative (Negative); WBC Urine Automated 0 /hpf (0-5); pH Urine 5.5 (4.5-7.5)
[2023-01-25 06:52] LABS: BUN Creatinine Ratio 17.9 (10-20); Creatinine Clr Calc Pharmacy 83.2 ml/min; Phosphorus 3.4 mg/dl (2.5-4.9); Potassium 4.1 mmol/L (3.5-5.1)
--- NOTE | 2023-01-25 07:29 | XRay Report ---
SINGLE VIEW CHEST CLINICAL HISTORY: Atypical chest pain. FINDINGS: An AP, portable, upright chest radiograph is compared to study dated 11/24/2022. The cardiom ediastinal silhouette is unremarkable. The lungs and pleural spaces are clear. No pneumothorax is see n. The bony thorax is grossly intact. There is partial bony fusion of the right first and second ribs . IMPRESSION: No active disease in the chest. ACT 112: Negative or not required by law. Electronically signed by: Lex Ivan M.D. 01/25/2023 7:27 AM
[2023-01-25] MEDS ORDERED: INSULIN ASPART PER UNIT CHARGE SC SCH ×2 (07:30→13:40)
[2023-01-25] MEDS ORDERED: LACTATED RINGER'S 1,000 ML IV ONE (07:46)
[2023-01-25] MEDS ORDERED: GABAPENTIN 100 MG CAP PO SCH (09:00)
--- NOTE | 2023-01-25 09:20 | Pharmacy Report ---
Pharmacy Glycemic Short Note 2 - Date of Service January 25, 2023 - Glycemic Short BSG Results (Last 24 hours): 01/24/23 01/25/23 01/25/23 23:20 01:05 01:39 Glucose 316 H* 115 H POC Glucose 133 H 01/25/23 01/25/23 01/25/23 02:16 03:06 04:02 Glucose POC Glucose 95 136 H 123 H 01/25/23 01/25/23 01/25/23 05:01 05:58 06:07 Glucose 221 H POC Glucose 166 H 247 H 01/25/23 01/25/23 07:12 08:11 Glucose POC Glucose 177 H 145 H OUTPATIENT ANTIDIABETIC REGIMEN: * Lantus 40 units SQ BID (patient reported) * Novolog 15-20 units TIDM HbA1C: 9.7% (11/26/22) ASSESSMENT: * Patient is a 37 year old male with history of DM1 admitted in DKA. Initial labs: pH-7.23, AG-34, bicarb-11, BSG-316. Initiated on insulin drip per DKA protocol. Pharmacy consulted to assist with glycemic management/drip transition. * Insulin drip initiated ~0100 this AM. Continues at this time. Most recent AG- 14, bicarb-19. BSG were within goal range, however now high as patient is eat ing. IVF changed back to NS given elevated BSGs. * Patient known to glycemic service - typically receives ~15-20 units/day of basal insulin while admitted. * Continue insulin drip until mental status at baseline, AG<12 and bicarb>/=15. PLAN FOR INPATIENT GLYCEMIC CONTROL: * Hold outpatient oral diabetes medications * Basal insulin * Insulin drip running @ 1.9 unit/hr * Should all of the following criteria be met, consider giving a dose of Lantus and transitioning off the insulin drip this evening: AG 12 or less, Bicarb 15 or greater, and VBG 7.3 or above. * Recommend Lantus 20 units SQ X 1 overlapped with insulin drip @ at least 2 hours prior to d/c. Novolog ACHS with CF 35 and CR 10 with overnight checks tonight. Would consider a scaled Lantus dose 12 hours after initial Lantus administered based on BSG. * Bolus insulin * NovoLog per scale ACHS or Q6hrs while NPO * Goal Range: Low 150 mg/dL - High 200 mg/dL * Correction Factor: - mg/dL/unit * Nutritional / Prandial insulin per carb ratio of 1 unit per 10 grams CHO consumed
[2023-01-25 11:26] LABS: BUN Creatinine Ratio 13.8 (10-20); Calcium 7.9 mg/dl (8.6-10.3); Creatinine Clr Calc Pharmacy 93.9 ml/min; Est GFR (African American) 117.9 ml/min; Est GFR (Non-African American) 101.7 ml/min; Magnesium 1.9 mg/dl (1.7-2.4); Phosphorus 2.5 mg/dl (2.5-4.9)
--- NOTE | 2023-01-25 14:20 | Electrocardiogram Report ---
Test Reason : Blood Pressure : / mmHG Vent. Rate : 144 BPM Atrial Rate : 144 BPM P-R Int : 104 ms QRS Dur : 078 ms QT Int : 350 ms P-R-T Axes : 030 081 040 degrees QTc Int : 541 ms Sinus tachycardia with short CT Otherwise normal ECG When compared with ECG of 24-NOV-2022 22:14, No significant change was found Confirmed by Quang Jaquez ([id number]) on 01/25/2023 2:20:13 PM Referred By: REFERRED SELF Confirmed By:Quang Jaquez
[2023-01-25 15:06] LABS: BUN Creatinine Ratio 9.9 (10-20); Calcium 8.2 mg/dl (8.6-10.3); Creatinine Clr Calc Pharmacy 87.4 ml/min; Est GFR (African American) 108.1 ml/min; Est GFR (Non-African American) 93.3 ml/min; Magnesium 1.9 mg/dl (1.7-2.4); Phosphorus 1.8 mg/dl (2.5-4.9); Potassium 3.9 mmol/L (3.5-5.1)
[2023-01-25] MEDS ORDERED: LANTUS PER UNIT CHARGE SC STA (15:09)
--- NOTE | 2023-01-25 16:18 | Discharge Summary ---
Date of Service January 25, 2023 Admission HPI Per Admitting Provider Laron Bradford is a 37yo male with history of Type-I DM, medication noncompliance presenting with nausea and vomiting as well as diarrhea that started earlier today. He reports compliance with his insulin, no missed doses. No report of fever, chills, abdominal pain. He did have some chest pain and shortness of breath prior to arrival. No additional complaints. In the ER he is afebrile, tachycardic ER Course: NSS x 3L NaHCO3 x 50mEq x 1 KCl 20mEq Insulin drip Potassium 40mEq Admission Exam Per Admitting Provider General: patient somnolent, arousable, ill in appearance Skin: warm, dry, intact, no rashes or lesions HEENT: NC/AT, PERRL, EOMI, anicteric sclera, conjunctiva without injection, external ear normal to inspection and nontender, nares patent, dry mucus membranes, dentition intact, no oropharyngeal lesions, neck supple, trachea midline, no LAD, no thyromegaly, no JVD Heart: +S1/S2, regular, tachycardic, no m/r/g Lungs: equal air entry bilaterally, no rales/rhonchi/wheezes Abd: +BS, soft, NT/ND, no masses/organomegaly/ascites Ext: warm, 2+ pulses in UE/LE bilaterally, no clubbing/cyanosis or edema Neuro: nonfocal, speech intact, no facial droop, moving all extremities on command with equal strength 5/5 Principal Diagnosis DKA Discharge Exam patient left AMA. Did not examine patient Discharge Data Allergies Allergy/AdvReac Type Severity Reaction Status Date / Time codeine Allergy Intermediate Rash Verified 12/08/22 10:20 erythromycin base Allergy Unknown HAPPENED Verified 12/08/22 10:20 A SMALL CHILD Consultations 01/25/23 00:54 ED Decision to Admit Stat Hospital Course (1) DKA (diabetic ketoacidosis): Initial VBG on presentation 10/30/25, anion gap of 34 and HCO3 of 11. Glucose of 316. Lactate elevated at 6.7 which has since improved to 3.8 following IVF. patient was initially kept n.p.o.n.p.o. However he was threatening to leave AMA and this was advanced to a clear liquid diet since his anion gap was closing. He is still left AMA. Total Time Total Time Spent Total Time Spent (In Minutes): 25 Discharge Plan Discharge Items Patient Disposition: Against Medical Advice Reason For Visit: DKA Activity: As commented below Activity Comment: Patient left AMA. Was unable to talk to him about his activity recommen Non-emergency contact: Primary Care Provider Follow-up/Referrals: Carolyn Story MD [Primary Care Provider] - Pending Studies at Discharge: No Stand-Alone Forms: [facility] Medications and DC Order Prescriptions: No Action albuterol sulfate 90 mcg/actuation HFA aerosol inhaler 2 puff inhalation Q6H PRN (Reason: shortness of breath or wheezing) Qty: 8.5 5RF gabapentin 100 mg capsule 200 mg PO TID Qty: 90 11RF insulin lispro [Humalog KwikPen Insulin] 100 unit/mL insulin pen 20 unit subcut TID Qty: 15 3RF (DME) OneTouch [employer] test strips Strip See Rx Instructions .Route Qty: 100 1RF Rx Instructions: check blood sugar at least 3 times a day (DME) blood-glucose meter [[employer] Reflect Meter] Misc See Rx Instructions .Route Qty: 1 0RF Rx Instructions: check blood sugars TID (DME) lancets [[employer] Lancets] 33 gauge misc See Rx Instructions .Route Qty: 100 3RF Rx Instructions: check blood sugars at least 3 times a day acetaminophen [Tylenol Extra Strength] 500 mg tablet 1,000 mg PO Q8 PRN (Reason: Pain) (DME) insulin syringe-needle U-100 0.3 mL 31 gauge x 15/64" syringe See Rx Instructions .Route Qty: 100 0RF Rx Instructions: As directed ondansetron HCl 4 mg tablet 4 mg PO TID PRN (Reason: NAUSEA/VOMITING) insulin glargine [Lantus Solostar U-100 Insulin] 100 unit/mL (3 mL) insulin pen 40 unit subcut BID Discharge Orders: Left Against Medical Advice (Routine); Ordered 01/25/23 Ordered By: Kranthi Thomas Admission Data Admit Date/Time: 01/25/23 01:30 Attending Provider: Kranthi Thomas Admit Provider: Lara Carey Primary Care Provider: Carolyn Story Other Providers: Lara Carey Coding Level of Care Code INP/OBS EV SAME DAY LV 1,45MIN Diagnoses DKA (diabetic ketoacidosis) E11.10
== END 2023-01-25 15:17 | disposition left against medical advice (07) | DRG 638 ==
LOC: ED 22:19 → EDINP 01-25 01:30 → SUATTDRO 01-25 01:30 → EDINP 01-25 04:04

== ENCOUNTER 2023-04-26 20:00 | Inpatient (IN) ==
[2023-04-26] MEDS ORDERED: ONDANSETRON INJ 2 MG/ML 2 ML VIAL IV STA (20:06)
[2023-04-26] MEDS: SODIUM CHLORIDE 0.9% 1,000 ML IV SCH ×2 (20:32→20:38)
[2023-04-26 20:33] LABS: iSTAT Blood Urea Nitrogen 45 mg/dl (7-18); iSTAT Carbon Dioxide 7 mmol/L (24-31); iSTAT Chloride 92 mmol/L (101-112); iSTAT Creatinine 1.3 mg/dl (0.6-1.3); iSTAT Glucose > 700 mg/dl (70-99); iSTAT Hematocrit 47 % (42-52); iSTAT Ionized Calcium 1.06 mmol/l (1.12-1.32); iSTAT Potassium 6.8 mmol/L (3.3-5.0); iSTAT Sodium 120 mmol/L (135-144)
[2023-04-26] MEDS ORDERED: MIDAZOLAM HCL 1 MG/ML 2ML VIAL IV STA (20:51)
--- NOTE | 2023-04-26 21:00 | Emergency Department Note ---
Impression & Plan DKA (diabetic ketoacidosis), Acute metabolic encephalopathy, Altered mental status, Vomiting ED Provider Note NAME: HERBER VARGHESE AGE: 37 SEX: M : 1985 ARRIVES VIA: Ambulance INFORMANT: Patient, EMS ED PROVIDER(S): Kannan Momin DO CHIEF COMPLAINT: Altered mental status HPI: The patient is a 37-year-old male who presented to the emergency department with altered mental status. Reportedly the patient's been having problems with nausea vomiting over the last few days. History was obtained from the prehospital personnel. They obtain history from the patient's family members. The patient denies having any abdominal pain or chest pain. The patient denies having any black or tarry stools the patient noted that his blood sugar was very high. Prehospital personnel noted that his blood sugar was also very high it was above their reading parameters. ROS: See above HPI for pertinent positives & negatives. A total of 10 systems reviewed and were otherwise negative. PAST MEDICAL HISTORY: See Below PAST SURGICAL HISTORY: See Below FAMILY HISTORY: See Below SOCIAL HISTORY: See Below HOME MEDICATIONS: See Below ALLERGIES: See Below VITALS: See Below PHYSICAL EXAMINATION: GENERAL: The patient is awake and alert. He is very anxious appearing. EYES: The conjunctivae are clear. The pupils are round and reactive. EARS, NOSE, MOUTH AND THROAT: The nose is without any evidence of any deformity. Mucous membranes are dry. NECK: The neck is nontender and supple. RESPIRATORY: Tachypnea was noted. There is no diminished breath sounds. CARDIOVASCULAR: Tachycardic and regular heart sounds were noted to auscultation. There is no definite murmur. 2. GASTROINTESTINAL: The abdomen is soft. Abdomen is nontender. MUSCULOSKELETAL/EXTREMITIES: There is no evidence of gross deformity full range of motion is noted in the hips and shoulders. SKIN: There is no obvious evidence of any rash. There are no petechiae, pallor or cyanosis noted. NEUROLOGIC: Patient is awake alert and oriented to person place and situation. Strength was symmetric. MEDICAL DECISION MAKING: The patient is a 37-year-old male who has a history of insulin-dependent diabetes who presented to the emergency department for an evaluation of altered mental status. The patient has a history of DKA. The patient was found to be in DKA on clinical examination as well as by laboratory studies. The patient was treated with multiple IV fluid boluses. He was started on IV insulin using the DKA order set. He was also started on IV bicarbonate. I discussed his condition with the on-call [facility] hospitalist. I also discussed his condition with the ICU. The patient slowly continue to improve while he was in the emergency department. He was treated empirically with antibiotics given his presentation although no definite infectious source was identified. The patient does not have a surgical abdomen on physical exam. I will defer further workup to the admitting team. Triage Nursing notes reviewed. Prior medical records reviewed Vital Signs: reviewed and remarkable for tachycardia and hypotension. Differential diagnosis: Infection, hypoglycemia, electrolyte abnormalities, overdose, toxicologic, cardiac sources, intracerebral event, neurologic, trauma, as well as other pathologies. ER treatment provided: See below Diagnostics interpreted by me: ECG: EKG was obtained in the emergency department. My interpretation is sinus tachycardia at 140 bpm. There is no ectopy. There is no acute ST segment abnormalities noted. This was compared to a tracing from January 24, 2023. There is an increase in the rate otherwise no significant changes were noted. Cardiac Monitoring: An order was placed for continuous cardiac monitoring. The monitor shows a rate of 132 bpm with sinus tachycardia. Laboratory studies: As stated above and show below. Imaging studies: See below. Radiographic imaging was reviewed by myself Consultation(s): I discussed this case with Sridhar who is on for the ICU. Dr. Carey was notified about the patient. She will evaluate the patient in the emergency department. ED COURSE: Procedures: Femoral Central Venous Catheter Indication: DKA Catheter Type: Triple-lumen right femoral vein Location: Verbal consent was obtained after the risks and benefits were explained, including but not limited to intra-abdominal injury, vessel injury, bleeding, scarring, infection, pain, and bone/joint/nerve damage. At this time, the risks of the procedure are less than the risks of NOT performing the procedure. A time out was taken and the correct patient and site identified. The patient was placed in the supine position and the skin was prepped in the standard fashion with chlorhexidine and full sterile drapes applied. The proper landmarks were identified with ultrasound, anesthetized with 1% lidocaine without epinephrine, and the needle was inserted through the skin in the standard fashion. The needle was carefully advanced into blood vessel lumen with ultrasound guidance. The guidewire was placed uneventfully. The vessel is dilated and the catheter was placed. It was sutured into position. There was good blood return from all ports. The patient tolerated the procedure well and there were no complications. Critical Care: I have personally spent greater than 60 minutes of critical care time in the direct management of this patient. This includes bedside care, interpretation of diagnostic studies, and testing, discussion with consultants, patient, and family members, and other required patient management activities. This 60 minutes is in excess of all separately billable procedures. Past Med/Surg History Medical History Fracture of proximal humerus with nonunion Poorly controlled type 1 diabetes mellitus Major depressive disorder, recurrent severe without psychotic features Medical non-compliance Surgical History No significant past surgical history Family History Other Diabetes Social History Smoking Status: Current every day smoker Tobacco Type: Cigarettes Cigarettes Per Day: 1 pack; Second Hand Exposure: No; Do You Dip or Chew Tobacco: No; Hx Alcohol Use: No Hx Substance Use: Yes Prescribed Medications: Marijuana Preferred Language: Tristanian Communication Ability: Effective Visual Impairment: Limited Hearing Ability: Normal Telephone Order Dispatcher Required: No Beliefs That Will Affect Care: None marital status: Single Current Living Situation: Other Current Living Situation Comment: "friends" current occupational status: disabled How many Children do You have: 0 Other Information That Helps Us Care for You: No Feels Safe at Home: Yes Safety Concerns: Feels Safe At This Time Childhood Exposure to Second-Hand Smoke: No Diet: diabetic and regular caffeine: Yes during the past year weight has: remained stable Dental Care, Regularly: Yes Physical Activity Frequency: Daily Seatbelt Use: always Sunscreen Use: No Do you think of yourself as: straight/heterosexual Sexual Activity: has been sexually active within the last 12 months Gender Identity: Male Assistive Devices: None Allergies Allergies Allergy/AdvReac Type Severity Reaction Status Date / Time codeine Allergy Intermediate Rash Verified 04/26/23 22:24 erythromycin base Allergy Unknown HAPPENED Verified 04/26/23 22:24 A SMALL CHILD Home Meds Home Medications Medication Instructions Recorded Confirmed acetaminophen 500 mg tablet 1,000 mg PO Q8 PRN Pain 08/19/22 02/17/23 (Tylenol Extra Strength) ondansetron HCl 4 mg tablet 4 mg PO TID PRN NAUSEA/VOMITING 10/04/22 02/17/23 Previous Rx's Medication Instructions Recorded insulin syringe-needle U-100 0.3 #100 ea 07/31/21 mL 31 gauge x 15/64" blood-glucose meter (OneTouch #1 ea 08/22/22 Verio Reflect Meter) albuterol sulfate 90 mcg/actuation 2 puff inhalation Q6H PRN 01/30/23 aerosol inhaler shortness of breath or wheezing #8.5 grams gabapentin 100 mg capsule 200 mg (2 x 100 mg) PO TID pain 01/30/23 #90 caps insulin glargine 100 unit/mL (3 40 unit (0.4 mL) subcut BID #15 mL 01/30/23 mL) subcutaneous pen (Lantus Solostar U-100 Insulin) insulin lispro 100 unit/mL 20 unit (0.2 mL) subcut TID #30 mL 01/30/23 subcutaneous pen (Humalog KwikPen (U-100) Insulin) lancets 33 gauge #100 ea 01/30/23 sildenafil 50 mg tablet 50 mg PO DAILY PRN sexual activity 02/02/23 #20 tabs blood sugar diagnostic (OneTouch #100 ea 04/04/23 Verio test strips) Results & Data (ED) Vital Signs Vital Signs - 24 hr 04/26/23 20:06 04/26/23 20:07 04/26/23 20:13 Temperature 36.7 C Temperature Source Oral Pulse Rate 138 H 138 H Pulse Rate [Apical] 132 H Respiratory Rate 20 20 Respiratory Effort / Characteristics Respiratory Depth Normal Respiratory Pattern Blood Pressure 105/55 L Blood Pressure [Right Arm] 86/55 L Blood Pressure Mean 71 Blood Pressure Mean [Right Arm] 65 Pulse Oximetry 100 97 Oxygen Delivery Method Nasal Cannula Room Air Oxygen Flow Rate 2 Sepsis Recent Fever Within 48 Hours No Sepsis New/Unexplained Change in Mental Status No Sepsis Action Taken by Nursing No Action Required 04/26/23 20:42 04/26/23 20:42 04/26/23 20:42 Temperature 36.7 C Temperature Source Oral Pulse Rate Pulse Rate [Apical] 137 H Respiratory Rate 22 Respiratory Effort / Characteristics Non-Labored Respiratory Depth Normal Respiratory Pattern Blood Pressure Blood Pressure [Right Arm] 98/56 L Blood Pressure Mean Blood Pressure Mean [Right Arm] 70 Pulse Oximetry 97 Oxygen Delivery Method Room Air Room Air Oxygen Flow Rate 97 Sepsis Recent Fever Within 48 Hours Sepsis New/Unexplained Change in Mental Status Sepsis Action Taken by Nursing 04/26/23 21:03 04/26/23 21:45 04/26/23 22:00 Temperature Temperature Source Pulse Rate Pulse Rate [Apical] 132 H 132 H 132 H Respiratory Rate 22 20 20 Respiratory Effort / Characteristics Non-Labored Respiratory Depth Normal Respiratory Pattern Blood Pressure Blood Pressure [Right Arm] 95/56 L 84/57 L 90/63 L Blood Pressure Mean Blood Pressure Mean [Right Arm] 69 66 72 Pulse Oximetry 95 100 100 Oxygen Delivery Method Nasal Cannula Room Air Room Air Oxygen Flow Rate 2 Sepsis Recent Fever Within 48 Hours Sepsis New/Unexplained Change in Mental Status Sepsis Action Taken by Nursing 04/26/23 22:08 04/26/23 22:22 04/26/23 22:35 Temperature Temperature Source Pulse Rate Pulse Rate [Apical] 132 H 133 H 134 H Respiratory Rate 20 20 19 Respiratory Effort / Characteristics Non-Labored Non-Labored Respiratory Depth Normal Normal Respiratory Pattern Regular Blood Pressure Blood Pressure [Right Arm] 90/63 L 90/63 L 93/69 L Blood Pressure Mean Blood Pressure Mean [Right Arm] 72 72 77 Pulse Oximetry 100 100 100 Oxygen Delivery Method Room Air Room Air Room Air Oxygen Flow Rate Sepsis Recent Fever Within 48 Hours Sepsis New/Unexplained Change in Mental Status Sepsis Action Taken by [facility] Medications Current Medication List: was personally reviewed by me Laboratory Data Attestation: I reviewed the patient's lab results. 04/26/23 20:30 04/27/23 07:19 Lab Results 04/26/23 04/26/23 04/26/23 Range/Units 20:12 20:20 20:30 WBC 20.06 H (4.8-10.8) K/ul RBC 3.95 L (4.70-6.10) M/uL Hgb 12.7 L (14.0-18.0) g/dl POC Hgb 16.0 (14.0-18.0) g/dl Hct 40.1 L (42.0-52.0) % POC Hct 47 (42-52) % MCV 101.5 H (80.0-100.0) fL MCH 32.2 (25.0-34.0) pg MCHC 31.7 L (32.0-36.0) g/dL RDW Std Deviation 48.6 H (36.4-46.3) fL RDW Coeff of Margarita 12.9 (11.5-14.5) % Plt Count 380 (130-400) K/uL MPV 10.2 (9.4-12.4) fL Immature Gran % (Auto) 3.3 % Neut % (Auto) 86.1 % Lymph % (Auto) 5.4 % Denali % (Auto) 4.3 % Eos % (Auto) 0.1 % Baso % (Auto) 0.8 % Neut # (Auto) 17.27 H (1.40-6.50) K/uL Lymph # (Auto) 1.08 L (1.20-3.40) K/uL Den[place] # (Auto) 0.86 H (0.11-0.59) K/uL Eos # (Auto) 0.03 (0.00-0.50) K/uL Baso # (Auto) 0.16 (0.00-0.20) K/uL Immature Gran # (Auto) 0.66 H (0.01-0.20) K/uL PT 10.8 (9.0-12.0) Seconds INR 1.0 (0.9-1.1) APTT 26 (21-31) Seconds PTT Ratio 0.9 VBG pH (7.36-7.41) VBG pCO2 (38-50) mmHg VBG pO2 mmHg VBG HCO3 VBG O2 Saturation % VBG Base Excess POC Sodium 120 L (135-144) mmol/L Sodium 125 L (136-145) mmol/L POC Potassium 6.8 H* (3.3-5.0) mmol/L Potassium 5.8 H (3.5-5.1) mmol/L POC Chloride 92 L (101-112) mmol/L Chloride 80 L (98-107) mmol/L Carbon Dioxide 4 L* (21-32) mmol/L POC Total CO2 7 L* (24-31) mmol/L Anion Gap 41 H (3-11) POC Anion Gap 28.0 H (16-25) mmol/L POC BUN 45 H (7-18) mg/dl BUN 33 H (6-23) mg/dl Creatinine 1.71 H (0.6-1.4) mg/dl POC Creatinine 1.3 (0.6-1.3) mg/dl Est Cr Clr Drug Dosing 50.5 ml/min Est GFR ( Amer) 57.2 ml/min Est GFR (Non-Af Amer) 49.3 ml/min BUN/Creatinine Ratio 19.3 (10-20) Glucose 903 H* (70-99(Fasting)) mg/dl POC Glucose > 600 H* (70-99) mg/dl POC Glucose (other) > 700 H* (70-99) mg/dl Lactate 4.3 H* (0.4-2.0) mmol/L Calcium 8.7 (8.6-10.3) mg/dl POC Ioniz Calcium Zach 1.06 L (1.12-1.32) mmol/l Phosphorus (2.5-4.9) mg/dl Magnesium 2.6 H (1.7-2.4) mg/dl Total Bilirubin 0.3 (0.2-1.0) mg/dl Direct Bilirubin 0.1 (0-0.2) mg/dl AST 20 (13-39) U/L ALT 19 (7-52) U/L Alkaline Phosphatase 127 H (34-104) U/L Troponin I High Sens 10.0 (0-20) pg/ml Total Protein 7.0 (6.0-8.3) gm/dl Albumin 4.2 (3.4-5.0) gm/dl Procalcitonin 0.25 (0-0.5) ng/ml Ethyl Alcohol mg/dL (<10.0) mg/dl 04/26/23 04/26/23 Range/Units 21:19 22:02 WBC (4.8-10.8) K/ul RBC (4.70-6.10) M/uL Hgb (14.0-18.0) g/dl POC Hgb (14.0-18.0) g/dl Hct (42.0-52.0) % POC Hct (42-52) % MCV (80.0-100.0) fL MCH (25.0-34.0) pg MCHC (32.0-36.0) g/dL RDW Std Deviation (36.4-46.3) fL RDW Coeff of Margarita (11.5-14.5) % Plt Count (130-400) K/uL MPV (9.4-12.4) fL Immature Gran % (Auto) % Neut % (Auto) % Lymph % (Auto) % [place] % (Auto) % Eos % (Auto) % Baso % (Auto) % Neut # (Auto) (1.40-6.50) K/uL Lymph # (Auto) (1.20-3.40) K/uL Denali # (Auto) (0.11-0.59) K/uL Eos # (Auto) (0.00-0.50) K/uL Baso # (Auto) (0.00-0.20) K/uL Immature Gran # (Auto) (0.01-0.20) K/uL PT (9.0-12.0) Seconds INR (0.9-1.1) APTT (21-31) Seconds PTT Ratio VBG pH < 7.00 L < 7.00 L (7.36-7.41) VBG pCO2 19 L (38-50) mmHg VBG pO2 55 mmHg VBG HCO3 TNP VBG O2 Saturation 76.0 % VBG Base Excess TNP POC Sodium (135-144) mmol/L Sodium 128 L (136-145) mmol/L POC Potassium (3.3-5.0) mmol/L Potassium 6.0 H (3.5-5.1) mmol/L POC Chloride (101-112) mmol/L Chloride 87 L (98-107) mmol/L Carbon Dioxide 3 L* (21-32) mmol/L POC Total CO2 (24-31) mmol/L Anion Gap 38 H (3-11) POC Anion Gap (16-25) mmol/L POC BUN (7-18) mg/dl BUN 33 H (6-23) mg/dl Creatinine 1.54 H (0.6-1.4) mg/dl POC Creatinine (0.6-1.3) mg/dl Est Cr Clr Drug Dosing 56.1 ml/min Est GFR ( Amer) 64.9 ml/min Est GFR (Non-Af Amer) 56.0 ml/min BUN/Creatinine Ratio 21.4 H (10-20) Glucose 876 H* (70-99(Fasting)) mg/dl POC Glucose (70-99) mg/dl POC Glucose (other) (70-99) mg/dl Lactate (0.4-2.0) mmol/L Calcium 7.7 L (8.6-10.3) mg/dl POC Ioniz Calcium Zach (1.12-1.32) mmol/l Phosphorus 10.7 H (2.5-4.9) mg/dl Magnesium 2.4 (1.7-2.4) mg/dl Total Bilirubin (0.2-1.0) mg/dl Direct Bilirubin (0-0.2) mg/dl AST (13-39) U/L ALT (7-52) U/L Alkaline Phosphatase (34-104) U/L Troponin I High Sens (0-20) pg/ml Total Protein (6.0-8.3) gm/dl Albumin (3.4-5.0) gm/dl Procalcitonin (0-0.5) ng/ml Ethyl Alcohol mg/dL < 10.0 (<10.0) mg/dl Administered Medications Insulin Human Regular 250 (units/ Sodium Chloride) 250 mls @ 2.5 mls/hr IV .Q24H [facility]; Protocol Stop: 05/26/23 21:29 Last Titration: 04/27/23 08:17 Dose: 2.5 units/hr, 2.5 mls/hr Documented By: EUGENIE Co-signed By: [email or web address] Titration: 04/27/23 07:14 Dose: 2.5 units/hr, 2.5 mls/hr Documented By: EUGENIE Co-signed By: [id number] Titration: 04/27/23 06:20 Dose: 0 units/hr, 0 mls/hr Documented By: [id number] Co-signed By: ROSA Titration: 04/27/23 05:15 Dose: 4.2 units/hr, 4.2 mls/hr Documented By: [id number] Co-signed By: ROSA Titration: 04/27/23 04:15 Dose: 5.3 units/hr, 5.3 mls/hr Documented By: ROSA Co-signed By: TP Titration: 04/27/23 03:15 Dose: 5.3 units/hr, 5.3 mls/hr Documented By: [id number] Co-signed By: ROSA Titration: 04/27/23 03:15 Dose: 0 units/hr, 0 mls/hr Documented By: [id number] Co-signed By: ROSA Titration: 04/27/23 02:15 Dose: 8.9 units/hr, 8.9 mls/hr Documented By: [id number] Co-signed By: ROSA Titration: 04/27/23 01:14 Dose: 8.9 units/hr, 8.9 mls/hr Documented By: ROSA Co-signed By: [id number] Titration: 04/26/23 23:34 Dose: 7.4 units/hr, 7.4 mls/hr Documented By: [id number] Co-signed By: ROSA Admin: 04/26/23 21:48 Dose: 6.2 units/hr, 6.2 mls/hr Documented By: ORTIZ Co-signed By: SELMA Potassium Chloride 40 meq/ (Dextrose/Sodium Chloride) 1,020 mls @ 100 mls/hr IV .[id number] RISSA Stop: 05/27/23 03:29 Last Admin: 04/27/23 03:36 Dose: 100 mls/hr Documented By: [id number] Insulin Aspart (Insulin Aspart Per Unit Charge) 0 units SC ACHS RISSA Stop: 05/27/23 07:29 Last Admin: 04/27/23 07:17 Dose: Not Given Documented By: EUGENIE Discontinued Medications Sodium Chloride (Nss) 1,000 mls @ 999 mls/hr IV .Q1H1M RISSA Stop: 04/26/23 22:15 Last Infusion: 04/26/23 21:41 Dose: Infused Documented By: [email or web address] Admin: 04/26/23 20:38 Dose: 999 mls/hr Documented By: Infusion: 04/26/23 20:38 Dose: Infused Documented By: Admin: 04/26/23 20:32 Dose: 999 mls/hr Documented By: ORTIZ Lactated Ringer's (Lr) 1,000 mls @ 999 mls/hr IV .Q1H1M ONE Stop: 04/26/23 22:30 Last Infusion: 04/26/23 22:46 Dose: Infused Documented By: Admin: 04/26/23 21:45 Dose: 999 mls/hr Documented By: ORTIZ Sodium Bicarbonate 150 meq/ (Sterile Water) 1,150 mls @ 125 mls/hr IV .Q9H12M RISSA Stop: 04/27/23 07:11 Last Infusion: 04/27/23 05:49 Dose: Infused Documented By: [id number] Admin: 04/26/23 22:18 Dose: 125 mls/hr Documented By: ORTIZ Piperacillin Sod/Tazobactam Sod (Zosyn) 4.5 gm in 100 mls @ 200 mls/hr IV NOW ONE Stop: 04/26/23 22:17 Last Infusion: 04/26/23 22:36 Dose: Infused Documented By: Admin: 04/26/23 22:02 Dose: 200 mls/hr Documented By: SELMA Lactated Ringer's (Lr) 1,000 mls @ 999 mls/hr IV .Q1H1M ONE Stop: 04/26/23 23:14 Last Infusion: 04/26/23 23:57 Dose: Infused Documented By: [id number] Admin: 04/26/23 22:44 Dose: 999 mls/hr Documented By: SELMA Lactated Ringer's (Lr) 1,000 mls @ 150 mls/hr IV .Q6H40M [facility] Stop: 04/27/23 19:17 Last Infusion: 04/27/23 01:20 Dose: Infused Documented By: Admin: 04/26/23 23:59 Dose: 150 mls/hr Documented By: [id number] Potassium Chloride 40 meq/ (Sodium Chloride) 1,020 mls @ 150 mls/hr IV .Q6H48M [facility] Stop: 05/27/23 02:14 Last Infusion: 04/27/23 03:38 Dose: Infused Documented By: [id number] Admin: 04/27/23 02:24 Dose: 150 mls/hr Documented By: [id number] Midazolam HCl (Midazolam Hcl 1 Mg/Ml 2ml Vial) 1 mg IV NOW STA Stop: 04/26/23 20:52 Last Admin: 04/26/23 20:55 Dose: 1 mg Documented By: ORTIZ Rowlandaneous (Stat Iv Infusion Titration Per Protocol) 1 each N/A NOW STA Stop: 04/26/23 21:28 Last Admin: 04/26/23 21:44 Dose: Not Given Documented By: ORTIZ Miscellaneous (Dka Goal Range 150-250 Mg/Dl) 1 each N/A ONE ONE Stop: 04/26/23 21:28 Last Admin: 04/26/23 21:44 Dose: Not Given Documented By: ORTIZ Huntercellaneous (Pending 1/2nss+40meq Kcl Ivf) 1 each N/A Q2H RISSA Stop: 05/26/23 23:17 Last Admin: 04/27/23 02:27 Dose: Not Given Documented By: [id number] Admin: 04/27/23 01:19 Dose: Not Given Documented By: ROSA Ballard (Pending D5 1/2ns+40meq Kcl Ivf) 1 each N/A Q2H RISSA Stop: 05/26/23 23:17 Last Admin: 04/27/23 03:43 Dose: Not Given Documented By: [id number] Admin: 04/27/23 03:42 Dose: Not Given Documented By: [id number] Admin: 04/27/23 03:41 Dose: Not Given Documented By: [id number] Elio (Dka Goal Range 150-250 Mg/Dl) 1 each N/A ONE ONE Stop: 04/26/23 23:19 Last Admin: 04/27/23 00:00 Dose: 1 each Documented By: [id number] Elio (Icu Protocol For Hyperglycemia) 1 each N/A ACHS RISSA Stop: 04/29/23 07:29 Last Admin: 04/27/23 07:16 Dose: Not Given Documented By: EUGENIE Ondansetron HCl (Ondansetron Inj 2 Mg/Ml 2 Ml Vial) 4 mg IV NOW STA Stop: 04/26/23 20:07 Last Admin: 04/26/23 20:32 Dose: 4 mg Documented By: ORTIZ Imaging Data Attestation: I personally reviewed and interpreted this imaging study as follows: My Impression: 1 view chest x-ray was obtained in the emergency department. My interpretation is no free air or definite infiltrate, hyperinflation was noted, final report pending Discharge Plan Visit Data Chief Complaint: Confusion Stated Complaint: [id number] ED Provider: Kannan Momin Discharge Problem: DKA (diabetic ketoacidosis), Acute metabolic encephalopathy, Altered mental status, Vomiting Patient Disposition: Admitted As Inpatient Discharge Instructions Interventions: ED Discharge Assessment Last Done: 04/26/23 23:14 Discharge Problem: DKA (diabetic ketoacidosis) Qualifiers: Diabetes mellitus type: type 1 Diabetes mellitus complication detail: with coma Qualified Code(s): E10.11 - Type 1 diabetes mellitus with ketoacidosis with coma Altered mental status Qualifiers: Altered mental status type: unspecified Qualified Code(s): R41.82 - Altered mental status, unspecified Vomiting Qualifiers: Vomiting type: unspecified Nausea presence: with nausea Qualified Code(s): R 11.2 - Nausea with vomiting, unspecified
[2023-04-26 21:19] LABS: Albumin Level 4.2 gm/dl (3.4-5.0); BUN Creatinine Ratio 19.3 (10-20); Bilirubin Direct 0.1 mg/dl (0-0.2); Bilirubin,Total 0.3 mg/dl (0.2-1.0); Calcium 8.7 mg/dl (8.6-10.3); Creatinine Clr Calc Pharmacy 50.5 ml/min; Est GFR (African American) 57.2 ml/min; Est GFR (Non-African American) 49.3 ml/min; Magnesium 2.6 mg/dl (1.7-2.4); Potassium 5.8 mmol/L (3.5-5.1)
[2023-04-26 21:24] LABS: Partial Thromboplastin Ratio 0.9; Partial Thromboplastin Time 26 Seconds (21-31); Prothrombin Time 10.8 Seconds (9.0-12.0)
[2023-04-26] MEDS ORDERED: PHARMACY GLYCEMIC MGMT CONSULT PRN ×2 (21:27→23:18)
[2023-04-26] MEDS ORDERED: DKA GOAL RANGE 150-250 mg/dl ONE ×2 (21:27→23:18)
[2023-04-26] MEDS ORDERED: STAT IV Infusion **Titration per Protocol STA ×2 (21:27→23:18)
[2023-04-26] MEDS ORDERED: LACTATED RINGER'S 1,000 ML IV ONE ×2 (21:30→22:14)
[2023-04-26] MEDS ORDERED: INSULIN REGULAR 250 UNITS in SODIUM CHLORIDE 0.9% 247.5 ML IV SCH ×2 (21:30→23:18)
[2023-04-26 21:37] LABS: PCO2 VBG 19 mmHg (38-50); PO2 VBG 55 mmHg; pH VBG < 7.00 (7.36-7.41)
[2023-04-26 21:40] LABS: Basophils # (auto) 0.16 K/uL (0.00-0.20); Basophils % (auto) 0.8 %; Eosinophils # (auto) 0.03 K/uL (0.00-0.50); Eosinophils % (auto) 0.1 %; Hematocrit (blood only) 40.1 % (42.0-52.0); Hemoglobin 12.7 g/dl (14.0-18.0); Immature Granulocytes # (auto) 0.66 K/uL (0.01-0.20); Immature Granulocytes % (auto) 3.3 %; Lymphocytes # (auto) 1.08 K/uL (1.20-3.40); Lymphocytes % (auto) 5.4 %; Mean Corpuscular Hemoglobin 32.2 pg (25.0-34.0); Mean Corpuscular Hgb Conc 31.7 g/dL (32.0-36.0); Mean Corpuscular Volume 101.5 fL (80.0-100.0); Mean Platelet Volume 10.2 fL (9.4-12.4); Monocytes # (auto) 0.86 K/uL (0.11-0.59); Monocytes % (auto) 4.3 %; Neutrophils # (auto) 17.27 K/uL (1.40-6.50); Neutrophils % (auto) 86.1 %; Platelet Count 380 K/uL (130-400); RDW Coefficient of Variation 12.9 % (11.5-14.5); RDW Standard Deviation 48.6 fL (36.4-46.3); Red Blood Count 3.95 M/uL (4.70-6.10); White Blood Count 20.06 K/ul (4.8-10.8)
[2023-04-26] MEDS ORDERED: PIPERACILLIN/TAZOBACTAM 4.5 GM/100 ML BAG IV ONE (21:48)
[2023-04-26 21:54] LABS: Adenovirus PCR Not Detected (NotDetected); Bordetella parapertussis PCR Not Detected (NotDetected); Bordetella pertussis PCR Not Detected (NotDetected); Chlamydia pneumoniae PCR Not Detected (NotDetected); Coronavirus 229E PCR Not Detected (NotDetected); Coronavirus CoV-2 (COVID19)PCR Not Detected (NotDetected); Coronavirus HKU1 PCR Not Detected (NotDetected); Coronavirus NL63 PCR Not Detected (NotDetected); Coronavirus OC43PCR Not Detected (NotDetected); Human Metapneumovirus PCR Not Detected (NotDetected); Influenza A PCR Not Detected (NotDetected); Influenza B PCR Not Detected (NotDetected); Mycoplasma pneumoniae PCR Not Detected (NotDetected); Parainfluenza Virus 1 PCR Not Detected (NotDetected); Parainfluenza Virus 2 PCR Not Detected (NotDetected); Parainfluenza Virus 3 PCR Not Detected (NotDetected); Parainfluenza Virus 4 PCR Not Detected (NotDetected); Respiratory Syncytial VirusPCR Not Detected (NotDetected); Rhinovirus/Enterovirus PCR Not Detected (NotDetected)
[2023-04-26] MEDS ORDERED: SODIUM BICARBONATE 8.4% 150 MEQ in WATER, STERILE 1,000 ML IV SCH (22:00)
--- NOTE | 2023-04-26 22:37 | History & Physical Report ---
Date of Service April 26, 2023 Assessment & Plan (1) DKA (diabetic ketoacidosis): Plan: 37yo male with poorly controlled Type I DM presenting with severe DKA. BSG >700, pH <7, HCO3=4, AG=41 -Admit to MICU -Continue aggressive IVF -Continue insulin gtt -Continue bicarbonate gtt for now -Monitor BMP, Mg, PO4, VBG q 4 hours -Zofran PRN nausea Patient did make mention of leaving the hospital. He has left AMA in the past. Spoke to him briefly and encouraged him to stay. He is agreeable at this time History of Present Illness Chief Complaint: DKA Primary Care Provider: Carolyn Story MD Laron Horton is a 37yo male with history of DM-I, medication non-adherence with multiple hospital admissions for DKA presenting with DKA. Patient does not provide much history in the ER due to severity of illness. He reports he has missed some of his medication. He complains of being very thirsty as well as some nausea and non-bloody/non-bilious vomiting. Otherwise, denies fever, chills, cough, SOB, chest pain, palpitations, abdominal pain. No additional complaints. ER Course: NSS x 2L bolus LR x 1L bolus Insulin gtt HCO3 gtt Versed x 1mg IV Zosyn 4.5gm IV Allergies Allergy/AdvReac Type Severity Reaction Status Date / Time codeine Allergy Intermediate Rash Verified 04/26/23 22:24 erythromycin base Allergy Unknown HAPPENED Verified 04/26/23 22:24 A SMALL CHILD Home Medications Medication Instructions Recorded Confirmed Type insulin syringe-needle U-100 0.3 #100 ea 07/31/21 02/17/23 Rx mL 31 gauge x 15/64" acetaminophen 500 mg tablet 1,000 mg PO Q8 PRN Pain 08/19/22 02/17/23 History (Tylenol Extra Strength) blood-glucose meter (OneTouch #1 ea 08/22/22 02/17/23 Rx Verio Reflect Meter) ondansetron HCl 4 mg tablet 4 mg PO TID PRN NAUSEA/VOMITING 10/04/22 02/17/23 History albuterol sulfate 90 mcg/actuation 2 puff inhalation Q6H PRN 01/30/23 02/17/23 Rx aerosol inhaler shortness of breath or wheezing #8.5 grams gabapentin 100 mg capsule 200 mg (2 x 100 mg) PO TID pain 01/30/23 02/17/23 Rx #90 caps insulin glargine 100 unit/mL (3 40 unit (0.4 mL) subcut BID #15 mL 01/30/23 02/17/23 Rx mL) subcutaneous pen (Lantus Solostar U-100 Insulin) insulin lispro 100 unit/mL 20 unit (0.2 mL) subcut TID #30 mL 01/30/23 02/17/23 Rx subcutaneous pen (Humalog KwikPen (U-100) Insulin) lancets 33 gauge #100 ea 01/30/23 02/17/23 Rx sildenafil 50 mg tablet 50 mg PO DAILY PRN sexual activity 02/02/23 02/17/23 Rx #20 tabs blood sugar diagnostic (OneTouch #100 ea 04/04/23 Rx Verio test strips) Past Med/Surg History Medical History Fracture of proximal humerus with nonunion Poorly controlled type 1 diabetes mellitus Major depressive disorder, recurrent severe without psychotic features Medical non-compliance Surgical History No significant past surgical history Family History Other Diabetes Social History Smoking Status: Former smoker Tobacco Type: Cigarettes Cigarettes Per Day: 1 pack; Second Hand Exposure: No; Do You Dip or Chew Tobacco: No; Hx Alcohol Use: No Hx Substance Use: No Preferred Language: [place] Communication Ability: Effective Visual Impairment: Limited Hearing Ability: Normal Tracer Clerk Required: No Beliefs That Will Affect Care: None marital status: Single Current Living Situation: Other Current Living Situation Comment: Lives with friends current occupational status: disabled How many Children do You have: 0 Feels Safe at Home: Yes Childhood Exposure to Second-Hand Smoke: No Diet: diabetic and regular caffeine: Yes during the past year weight has: remained stable Dental Care, Regularly: Yes Physical Activity Frequency: Daily Seatbelt Use: always Sunscreen Use: No Do you think of yourself as: straight/heterosexual Sexual Activity: has been sexually active within the last 12 months Gender Identity: Male Assistive Devices: None Review of Systems Review of Systems: All systems reviewed & are unremarkable except as noted in HPI & below Physical Exam Physical Exam: General: ill in appearance, oriented x 3 Skin: warm, dry, intact, no rashes or lesions HEENT: NC/AT, anicteric sclera, conjunctiva without injection, external ear normal to inspection and nontender, nares patent, dry mucus membranes, dentition intact, no oropharyngeal lesions, neck supple, trachea midline, no LAD, no thyromegaly, no JVD Heart: +S1/S2, regular, tachycardic, no m/r/g Lungs: equal air entry bilaterally, no rales/rhonchi/wheezes Abd: +BS, soft, NT/ND, no masses/organomegaly/ascites Ext: warm, 2+ pulses in UE/LE bilaterally, no clubbing/cyanosis or edema Neuro: nonfocal Results & Data Results & Data Vital Signs (Past 12 Hours) Vital Signs Temp Pulse Pulse Resp BP BP Pulse Ox 04/26/23 22:35 134 H 19 93/69 L 100 04/26/23 22:22 133 H 20 90/63 L 100 04/26/23 22:08 132 H 20 90/63 L 100 04/26/23 22:00 132 H 20 90/63 L 100 04/26/23 21:45 132 H 20 84/57 L 100 04/26/23 21:03 132 H 22 95/56 L 95 04/26/23 20:42 04/26/23 20:42 36.7 C 137 H 22 98/56 L 97 04/26/23 20:42 04/26/23 20:13 138 H 04/26/23 20:07 36.7 C 138 H 20 105/55 L 97 04/26/23 20:06 132 H 20 86/55 L 100 O2 Del Method O2 Flow Rate 04/26/23 22:35 Room Air 04/26/23 22:22 Room Air 04/26/23 22:08 Room Air 04/26/23 22:00 Room Air 04/26/23 21:45 Room Air 04/26/23 21:03 Nasal Cannula 2 04/26/23 20:42 Room Air 04/26/23 20:42 04/26/23 20:42 Room Air 97 04/26/23 20:13 04/26/23 20:07 Room Air 04/26/23 20:06 Nasal Cannula 2 Laboratory Results Laboratory Results WBC 20.06 K/ul (4.8-10.8) H 04/26/23 20:30 RBC 3.95 M/uL (4.70-6.10) L 04/26/23 20:30 Hgb 12.7 g/dl (14.0-18.0) L 04/26/23 20:30 POC Hgb 16.0 g/dl (14.0-18.0) 04/26/23 20:20 Hct 40.1 % (42.0-52.0) L 04/26/23 20:30 POC Hct 47 % (42-52) 04/26/23 20:20 MCV 101.5 fL (80.0-100.0) H 04/26/23 20:30 MCH 32.2 pg (25.0-34.0) 04/26/23 20:30 MCHC 31.7 g/dL (32.0-36.0) L 04/26/23 20:30 RDW Std Deviation 48.6 fL (36.4-46.3) H 04/26/23 20:30 RDW Coeff of Margarita 12.9 % (11.5-14.5) 04/26/23 20:30 Plt Count 380 K/uL (130-400) 04/26/23 20:30 MPV 10.2 fL (9.4-12.4) 04/26/23 20:30 Immature Gran % (Auto) 3.3 % 04/26/23 20:30 Neut % (Auto) 86.1 % 04/26/23 20:30 Lymph % (Auto) 5.4 % 04/26/23 20:30 [place] % (Auto) 4.3 % 04/26/23 20:30 Eos % (Auto) 0.1 % 04/26/23 20:30 Baso % (Auto) 0.8 % 04/26/23 20:30 Neut # (Auto) 17.27 K/uL (1.40-6.50) H 04/26/23 20:30 Lymph # (Auto) 1.08 K/uL (1.20-3.40) L 04/26/23 20:30 [place] # (Auto) 0.86 K/uL (0.11-0.59) H 04/26/23 20:30 Eos # (Auto) 0.03 K/uL (0.00-0.50) 04/26/23 20:30 Baso # (Auto) 0.16 K/uL (0.00-0.20) 04/26/23 20:30 Immature Gran # (Auto) 0.66 K/uL (0.01-0.20) H 04/26/23 20:30 PT 10.8 Seconds (9.0-12.0) 04/26/23 20:30 INR 1.0 (0.9-1.1) 04/26/23 20:30 APTT 26 Seconds (21-31) 04/26/23 20:30 PTT Ratio 0.9 04/26/23 20:30 VBG pH 7.07 (7.36-7.41) L 04/27/23 00:10 VBG pCO2 19 mmHg (38-50) L 04/26/23 21:19 VBG pO2 55 mmHg 04/26/23 21:19 VBG HCO3 TNP 04/26/23 21:19 VBG O2 Saturation 76.0 % 04/26/23 21:19 VBG Base Excess TNP 04/26/23 21:19 POC Sodium 120 mmol/L (135-144) L 04/26/23 20:20 Sodium 134 mmol/L (136-145) L 04/27/23 00:10 POC Potassium 6.8 mmol/L (3.3-5.0) H* 04/26/23 20:20 Potassium 4.6 mmol/L (3.5-5.1) D 04/27/23 00:10 POC Chloride 92 mmol/L (101-112) L 04/26/23 20:20 Chloride 93 mmol/L (98-107) L 04/27/23 00:10 Carbon Dioxide 6 mmol/L (21-32) L* 04/27/23 00:10 POC Total CO2 7 mmol/L (24-31) L* 04/26/23 20:20 Anion Gap 35 (3-11) H 04/27/23 00:10 POC Anion Gap 28.0 mmol/L (16-25) H 04/26/23 20:20 POC BUN 45 mg/dl (7-18) H 04/26/23 20:20 BUN 33 mg/dl (6-23) H 04/27/23 00:10 Creatinine 1.58 mg/dl (0.6-1.4) H 04/27/23 00:10 POC Creatinine 1.3 mg/dl (0.6-1.3) 04/26/23 20:20 Est Cr Clr Drug Dosing 55.2 ml/min 04/27/23 00:10 Est GFR ( Amer) 62.9 ml/min 04/27/23 00:10 Est GFR (Non-Af Amer) 54.3 ml/min 04/27/23 00:10 BUN/Creatinine Ratio 20.9 (10-20) H 04/27/23 00:10 Glucose 590 mg/dl (70-99(Fasting)) H* 04/27/23 00:10 POC Glucose 185 mg/dl (70-99) H 04/27/23 03:13 POC Glucose (other) > 700 mg/dl (70-99) H* 04/26/23 20:20 Lactate 4.3 mmol/L (0.4-2.0) H* 04/26/23 20:30 Calcium 7.6 mg/dl (8.6-10.3) L 04/27/23 00:10 POC Ioniz Calcium Zach 1.06 mmol/l (1.12-1.32) L 04/26/23 20:20 Phosphorus 7.3 mg/dl (2.5-4.9) H 04/27/23 00:10 Magnesium 2.3 mg/dl (1.7-2.4) 04/27/23 00:10 Total Bilirubin 0.3 mg/dl (0.2-1.0) 04/26/23 20:30 Direct Bilirubin 0.1 mg/dl (0-0.2) 04/26/23 20:30 AST 20 U/L (13-39) 04/26/23 20:30 ALT 19 U/L (7-52) 04/26/23 20:30 Alkaline Phosphatase 127 U/L (34-104) H 04/26/23 20:30 Troponin I High Sens 10.0 pg/ml (0-20) 04/26/23 20:30 Total Protein 7.0 gm/dl (6.0-8.3) 04/26/23 20:30 Albumin 4.2 gm/dl (3.4-5.0) 04/26/23 20:30 Lipase 33 U/L (11-82) 04/27/23 00:10 Procalcitonin 0.25 ng/ml (0-0.5) 04/26/23 20:30 Urine Color Yellow 04/26/23 22:56 Urine Appearance Clear (Clear) 04/26/23 22:56 Urine pH 5.0 (4.5-7.5) 04/26/23 22:56 Ur Specific [place] 1.022 (1.000-1.030) 04/26/23 22:56 Urine Protein Trace (Negative) H 04/26/23 22:56 Urine Glucose (UA) 3+ (Negative) H 04/26/23 22:56 Urine Ketones 3+ (Negative) H 04/26/23 22:56 Urine Blood Negative (Negative) 04/26/23 22:56 Urine Nitrite Negative (Negative) 04/26/23 22:56 Urine Bilirubin Negative (Negative) 04/26/23 22:56 Urine Urobilinogen Negative (Negative) 04/26/23 22:56 Ur Leukocyte Esterase Negative (Negative) 04/26/23 22:56 Urine WBC (Auto) 0 /hpf (0-5) 04/26/23 22:56 Urine RBC (Auto) 0-4 /hpf (0-4) 04/26/23 22:56 U Hyaline Cast (Auto) 1-5 /lpf (0-5) 04/26/23 22:56 U Epithel Cells (Auto) 0-5 /lpf (0-5) 04/26/23 22:56 Urine Bacteria (Auto) Negative (Negative) 04/26/23 22:56 Nasal Screen MRSA (PCR) Negative (Negative) 04/27/23 00:30 Urine Opiates Screen Neg (Neg) 04/26/23 22:56 Ur Methadone, Qual Neg (Neg) 04/26/23 22:56 Urine Barbiturates Neg (Neg) 04/26/23 22:56 Ur Phencyclidine (PCP) Neg (Neg) 04/26/23 22:56 U Amphetamin/Meth Scrn Neg (Neg) 04/26/23 22:56 MDMA (Ecstasy) Screen Neg (Neg) 04/26/23 22:56 U Benzodiazepines Scrn Neg (Neg) 04/26/23 22:56 Ur Cocaine Metabolite Neg (Neg) 04/26/23 22:56 U Marijuana (THC) Screen Neg (Neg) 04/26/23 22:56 Ethyl Alcohol mg/dL < 10.0 mg/dl (<10.0) 04/26/23 21:19 Adenovirus (PCR) Not Detected (NotDetected) 04/26/23 Unknown B. pertussis DNA (PCR) Not Detected (NotDetected) 04/26/23 Unknown B.parapertussis DNA PCR Not Detected (NotDetected) 04/26/23 Unknown C. pneumoniae DNA (PCR) Not Detected (NotDetected) 04/26/23 Unknown Coronavirus OC43 (PCR) Not Detected (NotDetected) 04/26/23 Unknown Coronavirus HKU1 (PCR) Not Detected (NotDetected) 04/26/23 Unknown Coronavirus 229E (PCR) Not Detected (NotDetected) 04/26/23 Unknown SARS-CoV-2 (PCR) Not Detected (NotDetected) 04/26/23 Unknown Coronavirus NL63 (PCR) Not Detected (NotDetected) 04/26/23 Unknown Human Metapneumovir PCR Not Detected (NotDetected) 04/26/23 Unknown Influenza Type A (PCR) Not Detected (NotDetected) 04/26/23 Unknown Influenza Type B (PCR) Not Detected (NotDetected) 04/26/23 Unknown M. pneumoniae (PCR) Not Detected (NotDetected) 04/26/23 Unknown Parainfluenza 1 (PCR) Not Detected (NotDetected) 04/26/23 Unknown Parainfluenza 2 (PCR) Not Detected (NotDetected) 04/26/23 Unknown Parainfluenza 3 (PCR) Not Detected (NotDetected) 04/26/23 Unknown Parainfluenza 4 (PCR) Not Detected (NotDetected) 04/26/23 Unknown RSV (PCR) Not Detected (NotDetected) 04/26/23 Unknown Entero/Rhino (PCR) Not Detected (NotDetected) 04/26/23 Unknown Diagnostic Findings CXR - by my interpretation - normal cardiac shadow, no edema or infiltrates PG Care Time/CCT Total # of Minutes Spent Total Time Spent with Patient: Total time spent is greater than 50% in coordination of care (as documented) at patient's floor/unit and/or counseling patient: Coding Level of Care Code 48885 INT INP/OBS CARE 2/55MIN Diagnoses DKA (diabetic ketoacidosis) E10.11 Diabetes mellitus complication detail: with coma Diabetes mellitus type: type 1 (1) DKA (diabetic ketoacidosis) Diabetes mellitus complication detail: with coma Diabetes mellitus type: type 1 Qualified Code(s): E10.11 - Type 1 diabetes mellitus with ketoacidosis with coma
[2023-04-26 22:52] LABS: BUN Creatinine Ratio 21.4 (10-20); Calcium 7.7 mg/dl (8.6-10.3); Creatinine Clr Calc Pharmacy 56.1 ml/min; Est GFR (African American) 64.9 ml/min; Magnesium 2.4 mg/dl (1.7-2.4); Phosphorus 10.7 mg/dl (2.5-4.9)
[2023-04-26] MEDS ORDERED: ONDANSETRON INJ 2 MG/ML 2 ML VIAL IV PRN (23:18)
[2023-04-26] MEDS ORDERED: LACTATED RINGER'S 1,000 ML IV SCH (23:18)
--- NOTE | 2023-04-26 23:22 | Critical Care Consultation ---
Date of Consultation April 26, 2023 Assessment & Plan (1) DKA (diabetic ketoacidosis): Reason Critically Ill: 37-year-old male with history of diabetes presents to the ICU with metabolic acidosis due to DKA, now on insulin drip and undergoing DKA protocol. Neuro - [facility] ICU: Negative Neuropathycontinue gabapentin Encephalopathylikely metabolic secondary to DKA. Monitor Cardiac - Tachycardiahemodynamically stable. Troponin within normal limits. EKG with sinus tachycardia, no ST changes, prolonged QTc of 541. Will avoid QTc prolonging medications -Expect improved with fluid resuscitation and treatment of acidosis -Continuous monitoring on telemetry Respiratory - Lungs clear to auscultation. No history of pulmonary disease and currently maintained oxygen saturation on room air. No evidence of labored breathing, no tachypnea Continuous monitoring pulse ox GI - We will advance diet as tolerated to DM type I diet RENAL/LYTES - AKIlikely prerenal in the setting of severe dehydration with DKA. Should improve with fluid resuscitation and correction of underlying metabolic acidos is. Continue with IV fluids. Monitor - Strict I's and O's ENDO - DKApatient with initial BSG greater than 600, positive ketones in urine, HCO3 3, pH less than 7, anion gap 40 -Every 4 hours BMPs and VBG's -Continue with insulin drip and fluid resuscitation per DKA protocol. Continue with bicarb drip for now until pH improves -We will transition to sliding scale/basal bolus when gap closed and bicarb greater than 15 HEME - H&H stable, monitor routine CBC ID - No indication for infectious process at this time LINES/IV ACCESS - Peripheral IVs DVT PROPHYLAXIS - SCDs I have personally spent 40 minutes of critical care time in the direct management of this patient. This is a life/limb threatening event. This includes time spent evaluating patient, direct bedside care, chart review, placing orders, interpretation of diagnostic studies, discussion with consultants, patient, and family members, as well as other required patient management activities. This time is exclusive of all separately billable procedures, and teaching time and separate from and in addition to any other critical care service time. Thank you for allowing us to participate in the care of this patient. Please refer to my attending physician's documentation for any further recommendations. (2) Acute metabolic encephalopathy: (3) Poorly controlled type 1 diabetes mellitus: History of Present Illness History of Present Illness Patient is a 37-year-old male with past medical history of DM type I, major depressive disorder, GERD, and noncompliance with medication who presents to the emergency department earlier this evening with altered mental status, and complaints of nausea and vomiting over the course of a few days. Patient was found to have blood glucose greater than 600, pH less than 7, HCO3 of 3. Patient was given IV insulin and started on bicarb drip. He is now being admitted to ICU for further management of DKA. On arrival to the ICU the patient is confused but does answer questions appropriately. He denies any headache, dizziness, syncope, changes in vision, shortness of breath or chest pain, cough or congestion, fevers, abdominal pain, nausea vomiting or diarrhea, changes in gait, swelling in hands or feet. Allergies Allergy/AdvReac Type Severity Reaction Status Date / Time codeine Allergy Intermediate Rash Verified 04/26/23 22:24 erythromycin base Allergy Unknown HAPPENED Verified 04/26/23 22:24 A SMALL CHILD Home Medications Medication Instructions Recorded Confirmed Type insulin syringe-needle U-100 0.3 #100 ea 07/31/21 02/17/23 Rx mL 31 gauge x 15/64" acetaminophen 500 mg tablet 1,000 mg PO Q8 PRN Pain 08/19/22 02/17/23 History (Tylenol Extra Strength) blood-glucose meter (OneTouch #1 ea 08/22/22 02/17/23 Rx Verio Reflect Meter) ondansetron HCl 4 mg tablet 4 mg PO TID PRN NAUSEA/VOMITING 10/04/22 02/17/23 History albuterol sulfate 90 mcg/actuation 2 puff inhalation Q6H PRN 01/30/23 02/17/23 Rx aerosol inhaler shortness of breath or wheezing #8.5 grams gabapentin 100 mg capsule 200 mg (2 x 100 mg) PO TID pain 01/30/23 02/17/23 Rx #90 caps insulin glargine 100 unit/mL (3 40 unit (0.4 mL) subcut BID #15 mL 01/30/23 02/17/23 Rx mL) subcutaneous pen (Lantus Solostar U-100 Insulin) insulin lispro 100 unit/mL 20 unit (0.2 mL) subcut TID #30 mL 01/30/23 02/17/23 Rx subcutaneous pen (Humalog KwikPen (U-100) Insulin) lancets 33 gauge #100 ea 01/30/23 02/17/23 Rx sildenafil 50 mg tablet 50 mg PO DAILY PRN sexual activity 02/02/23 02/17/23 Rx #20 tabs blood sugar diagnostic (OneTouch #100 ea 04/04/23 Rx Verio test strips) Patient History Medical History Fracture of proximal humerus with nonunion Poorly controlled type 1 diabetes mellitus Major depressive disorder, recurrent severe without psychotic features Medical non-compliance Surgical History No significant past surgical history Family History Other Diabetes Social History Smoking Status: Current every day smoker Tobacco Type: Cigarettes Cigarettes Per Day: 1 pack; Second Hand Exposure: No; Do You Dip or Chew Tobacco: No; Hx Alcohol Use: No Hx Substance Use: Yes Prescribed Medications: Marijuana Preferred Language: Ecuad[place] Communication Ability: Effective Visual Impairment: Limited Hearing Ability: Normal Stick Roller Required: No Beliefs That Will Affect Care: None marital status: Single Current Living Situation: Other Current Living Situation Comment: "friends" current occupational status: disabled How many Children do You have: 0 Feels Safe at Home: Yes Childhood Exposure to Second-Hand Smoke: No Diet: diabetic and regular caffeine: Yes during the past year weight has: remained stable Dental Care, Regularly: Yes Physical Activity Frequency: Daily Seatbelt Use: always Sunscreen Use: No Do you think of yourself as: straight/heterosexual Sexual Activity: has been sexually active within the last 12 months Gender Identity: Male Assistive Devices: Other Review of Systems Review of Systems: All systems reviewed & are unremarkable except as noted in HPI & below Physical Exam Constitutional: + thin; no acute distress Eyes: PERRL, conjunctivae normal, anicteric sclerae ENMT: external ear and nose normal, oropharynx normal Neck: trachea midline, no thyromegaly Respiratory: normal respiratory effort, lungs clear to auscultation Cardiovascular: RRR, no murmur, no edema Heart Sounds: normal S1 and normal S2; no murmur Extremities: no edema Gastrointestinal (Abdomen): normal bowel sounds, soft, nontender, no hepatosplenomegaly Musculoskeletal: no cyanosis or clubbing, extremities motor strength 5/5 Skin: no rashes, warm and dry Neurologic: PERRL, EOMI, accommodation nl, no face palsy, no dysarthria Psychiatric: A+Ox3, euthymic affect Results & Data Results & Data Vital Signs (Past 12 Hours) Vital Signs Temp Pulse Pulse Resp BP BP Pulse Ox 04/26/23 22:45 140 H 21 93/69 L 100 04/26/23 22:35 134 H 19 93/69 L 100 04/26/23 22:22 133 H 20 90/63 L 100 04/26/23 22:08 132 H 20 90/63 L 100 04/26/23 22:00 132 H 20 90/63 L 100 04/26/23 21:45 132 H 20 84/57 L 100 04/26/23 21:03 132 H 22 95/56 L 95 04/26/23 20:42 04/26/23 20:42 36.7 C 137 H 22 98/56 L 97 04/26/23 20:42 04/26/23 20:13 138 H 04/26/23 20:07 36.7 C 138 H 20 105/55 L 97 04/26/23 20:06 132 H 20 86/55 L 100 O2 Del Method O2 Flow Rate 04/26/23 22:45 Room Air 04/26/23 22:35 Room Air 04/26/23 22:22 Room Air 04/26/23 22:08 Room Air 04/26/23 22:00 Room Air 04/26/23 21:45 Room Air 04/26/23 21:03 Nasal Cannula 2 04/26/23 20:42 Room Air 04/26/23 20:42 04/26/23 20:42 Room Air 97 04/26/23 20:13 04/26/23 20:07 Room Air 04/26/23 20:06 Nasal Cannula 2 Coding Level of Care Code 42761 IN/OBS CONSULT LVL 3,45M Diagnoses DKA (diabetic ketoacidosis) E10.11 Diabetes mellitus complication detail: with coma Diabetes mellitus type: type 1 Acute metabolic encephalopathy G93.41 Poorly controlled type 1 diabetes mellitus E10.65 Time Spent (min) 48 (1) DKA (diabetic ketoacidosis) Diabetes mellitus complication detail: with coma Diabetes mellitus type: type 1 Qualified Code(s): E10.11 - Type 1 diabetes mellitus with ketoacidosis with coma
[2023-04-26 23:38] LABS: Appearance Urine Clear (Clear); Bacteria Urine Automated Negative (Negative); Bilirubin Urine Negative (Negative); Blood Urine Negative (Negative); Color Urine Yellow; Epithelial Cell Urine Auto 0-5 /lpf (0-5); Glucose Urine UA 3+ (Negative); Ketones Urine 3+ (Negative); Leukocyte Esterase Urine Negative (Negative); Nitrite Urine Negative (Negative); Protein Urine Trace (Negative); RBC Urine Automated 0-4 /hpf (0-4); Specific Gravity Urine 1.022 (1.000-1.030); Urobilinogen Urine Negative (Negative); WBC Urine Automated 0 /hpf (0-5)
[2023-04-27 00:04] LABS: Amphetamines+Metham, Urine Neg (Neg); Barbiturates, Urine Neg (Neg); Benzodiazepine, Urine Neg (Neg); Cocaine, Urine Neg (Neg); MDMA (Ecstacy), Urine Neg (Neg); Marijuana, Urine Neg (Neg); Methadone, Urine Neg (Neg); Opiate, Urine Neg (Neg); Phencyclidine, Urine Neg (Neg)
--- OUTSIDE RECORDS SUMMARY | 2023-04-27 00:17 | External Medical Summary | Summary of Care ---
Author Name Unknown Organization [facility] Address [address] [place] [address] Phone [phone] Care Team Providers Care Inflatable Buildings Laminator Name Role Phone Carolyn Story MD Primary Care Provider [phone] Reason for Referral * Evaluate & Treat - Unlimited Visits (Within 10 days (routine)) - Authorized Specialty Diagnoses / Procedures Referred By Sharri jensen Referred To Contact Physical Therapy / Physical Medicine And Rehab Diagnoses Right shoulder pain Ruy Payton MD [address] [place] [id number] Referral ID Status Reason Start Date Expiration Date Visits Requested Visits Authorized [id number] Authorized Specialty Services Required 3 [phone] Question Answer Referral Priority Within 10 days (routine) Where should this appointment be scheduled? [facility] Comments Right proximal humerus fracture, date of injury September 2022 Recommend WBAT, work on active ROM, pulleys, modalities as indicated Reason for Visit * Reason Comments NEW PATIENT RIGHT HUMERUS/SHOULD ER INJURY ?FX * Evaluate & Treat - Unlimited Visits (Within 10 days (routine)) - Authorized Specialty Diagnoses / Procedures Referred By Contguerda jensen Referred To Contact Orthopaedic Surgery / Orthopedics Diagnoses Unspecified fracture of upper end of right humerus, initial encounter for closed fracture Pain in the shoulder Avery Kaye DO [address] [place] [address] Referral ID Status Reason Start Date Expiration Date Visits Requested Visits Authorized [id number] Authorized Specialty Services Required 01/16/[phone] Encounter Details Date Type Department Care Team (Late st Contact Info) Description 03/07/2023 11:30 AM EST Office Visit [facility] [address] [place] [address] Peter Easton MD [address] [place] [address] Closed fracture of proximal end of humerus with delayed healing, unspecified fracture morphology, unspecified laterality, subsequent encounter* Allergies Active Allergy Reactions Criticality Noted Date Comments Erythromycin 03/07/2023 documented as of this encounter (statuses as of 03/07/2023) Medications No known medicationsdocumented as of this encounter (statuses as of 03/07/2023) Active Problems No known active problems documented as of this encounter (statuses as of 03/07/2023) Social History Tobacco Use Types Packs/Day Years Used Date Smoking Tobacco: Every Day Cigarettes 1 Smokeless Tobacco: Former Tobacco Cessation:Ready to Q uit: Not Asked; Counseling Given: Not Answered Alcohol Use Standard Drinks/Week Comments Not Currently 0 (1 standard drink = 0.6 oz pur e alcohol) Sex and Gender Information Value Date Recorded Sex Assigned at Not on file Gender Identity Not on file Sexual Orientation Not on file Job Start Date Occupation Industry Not on file Not on file Not on file documented as of this encounter Plan of Treatment Upcoming Encounters Date Type Department Care Team (Late st Contact Info) Description 05/08/2023 12:30 PM EST Office Visit Orthopaedics [facility] [address] [place] [address] Avery Pitt, [address] [place] [address] Pending Results Name Type Priority Associated Diagnoses Date /Time XR SHOULDER, 2 OR MORE VIEWS Medical Imaging Routine 03/07/2023 11:16 AM EST Scheduled Referrals Name Type Priority Associated Diagnoses Orde r Schedule PHYSICAL THERAPY REFERRAL OP Referral Within 10 days (routine) Ordered: 03/07/2023 Health Maintenance Due Date Last Done Comments Hepatitis B (1 of 3 - 3-dose series) 1983 COVID-19 Vaccine (#1) 01/07/1984 Pneumococcal Vaccine: Pediat rics (0 to 5 Years) and At-Risk Patients (6 to 64 Years) (1 - PCV) 07/06/1989 Depression Screening 1995 HIV Screening 07/06/1998 Hepatitis C Screening 07/06/2001 DTaP,Tdap,and Td Vaccines (1 - Tdap) 07/06/2002 Influenza Vaccine (FLU shot) (#1) 2022 GARDASIL-HPV IMMUNIZATION SERIES Aged Out No longer eligible based on patient's age to complete this topic MENINGOCOCCAL (MENACTRA/MENVEO) Aged Out No longer eligible based on patient's age to complete this topic documented as of this encounter Medical Devices Not on filedocumented as of this encounter Visit Diagnoses Diagnosis Closed fracture of proximal end of humerus with delayed healing, unspecified fracture morphology, unspecified laterality, subsequent encounter- Primary documented in this encounter Care Teams Inflatable Buildings Laminator Relationship Specialty Start Date End Date Carolyn Story MD [address] [place] [address] [place] [address] PCP - General Family Medicine 01/16/23 documented as of this encounter
--- OUTSIDE RECORDS SUMMARY | 2023-04-27 00:17 | External Medical Summary | Summary of Care ---
Author Name Unknown Organization [facility] Address [address] [place] [address] Phone [phone] Care Team Providers Care Converter Skimmer Name Role Phone Carolyn Story MD Primary Care Provider [phone] Encounter Details Date Type Department Care Team (Latest Contact Info) Description 03/07/2023 11:03 AM EST - 03/07/2023 11:59 PM EST Hospital Encounter Radiology, [place] [address] [place] [address] Arrived Discharge Disposition: Home - Self Care Allergies Active Allergy Reactions Criticality Noted Date Comments Erythromycin 03/07/2023 documented as of this encounter (statuses as of 03/08/2023) Medications No known medicationsdocumented as of this encounter (statuses as of 03/08/2023) Active Problems No known active problems documented as of this encounter (statuses as of 03/08/2023) Social History Tobacco Use Types Packs/Day Years Used Date Smoking Tobacco: Every Day Cigarettes 1 Smokeless Tobacco: Former Alcohol Use Standard Drinks/Week Comments Not Currently [...] 05/08/2023 12:30 PM EST Office Visit Orthopaedics [address] [place] [address] Avery Pitt, DO [address] [place] [address] Pending Results Name Type Priority Associated Diagnoses Date /Time XR SHOULDER, 2 OR MORE VIEWS Medical Imaging Routine 03/07/2023 11:16 AM EST Health Maintenance Due Date Last Done Comments [...] Not on filedocumented as of this encounter Care Teams Converter Skimmer Relationship Specialty Start Date End Date Carolyn Story MD [address] [place] [address] [place] [address] PCP - General Family Medicine 01/16/23 documented as of this encounter
--- OUTSIDE RECORDS SUMMARY | 2023-04-27 00:18 | External Medical Summary | Summary of Care ---
Author Name Unknown Organization [facility] Address [address] [place] [address] Phone [phone] Care Team Providers Care Noodle Press Operator Name Role Phone Carolyn Story MD Primary Care Provider [phone] Encounter Details Date Type Department Care Team (Late st Contact Info) Description 02/28/2023 Population Health External Data Unspecified Department Social History Tobacco Use Types Packs/Day Years Used Date Smoking Tobacco: Never Assessed Sex and Gender Information Value Date Recorded Sex Assigned at Not on file Gender Identity Not on file Sexual Orientation Not on file documented as of this encounter Plan of Treatment Upcoming Encounters Date Type Department Care Team (Late st Contact Info) Description 03/07/2023 11:30 AM EST Office Visit Orthopaedics, [place] [address] [place] [address] Peter Easton MD [address] [place] [address] Health Maintenance Due Date Last Done Comments [...] filedocumented as of this encounter Care Teams Noodle Press Operator Relationship Specialty Start Date End Date Carolyn Story MD [address] [place] [address] [place] [id number] PCP - General Family Medicine 01/16/23 documented as of this encounter
--- OUTSIDE RECORDS SUMMARY | 2023-04-27 00:18 | External Medical Summary | Summary of Care ---
Author Name Unknown Organization [facility] Address [address] [place] [address] Phone [phone] Care Team Providers Care Clerk Supervisor Name Role Phone Carolyn Story MD Primary Care Provider [phone] Encounter Details Date Type Department Care Team Description 01/27/2023 Photo Booth Operator Care Coordination [address] [place] [address] Adali Allison RN [address] [place], [place] [phone] Complex care coordination* Social History Tobacco Use Types Packs/Day Years Used Date Smoking Tobacco: Never Assessed Sex Assigned at Date Recorded Not on file documented as of this encounter Progress Notes * Adali Allison RN - 01/27/2023 8:47 AM EDT Follow-up Post Discharge Attempted Phone Call Second Attempt Call Outcome Left Voicemail/Message Plan To attempt another outreach documented in this encounter Plan of Treatment Health Maintenance Due Date Last Done Comments Hepatitis B (1 of 3 - 3-dose series) 1983 COVID-19 Vaccine (#1) 01/07/1984 Depression Screening 1995 HIV Screening 07/06/1998 Hepatitis C Screening 07/06/2001 DTaP,Tdap,and Td Vaccines (1 - Tdap) 07/06/2002 Influenza Vaccine (FLU shot) (#1) 2022 GARDASIL-HPV IMMUNIZATION SERIES Aged Out No longer eligible based on patient's age to complete this topic MENINGOCOCCAL (MENACTRA/MENVEO) Aged Out No longer eligible based on patient's age to complete this topic Pneumococcal Vaccine: Pediat rics (0 to 5 Years) and At-Risk Patients (6 to 64 Years) Aged Out No longer eligible b ased on patient's age to complete this topic documented as of this encounter Medical Devices Not on filedocumented as of this encounter Visit Diagnoses Diagnosis Complex care coordination- Primary documented in this encounter Care Teams Clerk Supervisor Relationship Specialty Start Date End Date Carolyn Story MD [address] [place], [place] [address] [address] PCP - General Family Medicine 01/16/23 documented as of this encounter
--- OUTSIDE RECORDS SUMMARY | 2023-04-27 00:18 | External Medical Summary | Summary of Care ---
Author Name Unknown Organization [facility] Address [address] [place] [address] Phone [phone] Care Team Providers Care Inspector Balance Wheel Motion Name Role Phone Carolyn Story MD Primary Care Provider [phone] Reason for Visit * Reason Onset Date Comments case management 01/30/2023 Encounter Details Date Type Department Care Team (Late st Contact Info) Description 01/30/2023 Telephone Care Coordination [address] [place] [address] Arminda Okeefe RN [address] [place] [address] case management Social History Tobacco Use Types Packs/Day Years Used Date Smoking Tobacco: Never Assessed Sex and Gender Information Value Date Recorded Sex Assigned at Not on file Gender Identity Not on file Sexual Orientation Not on file documented as of this encounter Miscellaneous Notes * Telephone Encounter - Arminda Okeefe RN - 01/30/2023 10:05 AM EDT Follow-up Post Discharge Attempted Phone Call Third Attempt Call Outcome Left Voicemail/Message Plan To send letter Sent to [facility] for cold call documented in this encounter Plan of Treatment [...] filedocumented as of this encounter Care Teams Inspector Balance Wheel Motion Relationship Specialty Start Date End Date Carolyn Story MD [address] [place], [place] [address] [address] PCP - General Family Medicine 01/16/23 documented as of this encounter
--- OUTSIDE RECORDS SUMMARY | 2023-04-27 00:18 | External Medical Summary | Summary of Care ---
Author Name Unknown Organization [facility] Address [address] [place] [address] Phone [phone] Care Team Providers Care Curriculum Developer Name Role Phone Carolyn Story MD Primary Care Provider [phone] Reason for Referral * Evaluate & Treat - Unlimited Visits (Within 10 days (routine)) - Pending Review Specialty Diagnoses / Procedures Referred By Sharri jensen Referred To Contact Orthopaedic Surgery / Orthopedics Diagnoses Unspecified fracture of upper end of right humerus, initial encounter for closed fracture Pain in the shoulder Avery Kaye DO [address] [facility] [address] [place] [address] Referral ID Status Reason Start Date Expiration Date Visits Requested Visits Authorized [id number] Pending Review Specialty Services Required 01/16/[phone] Question Answer Referral Priority Within 10 days (routine) Where should this appointment be scheduled? [facility] What body part is the patient being seen for? Shoulder What condition is the patient being seen for? Fracture including related infection Encounter Details Date Type Department Care Team Description 01/16/2023 Orders Only [facility] [place] [address] [facility] *DO NOT REMOVE THIS DEPARTMENT* [place] [address] Request, External Referral Unspecified fracture of upper end of right humerus, initial encounter for closed fracture*; Pain in the shoulder Social History Tobacco Use Types Packs/Day Years Used Date Smoking Tobacco: Never Assessed Sex Assigned at Date Recorded Not on file documented as of this encounter Plan of Treatment Scheduled Referrals Name Type Priority Associated Diagnoses Order Schedule ORTHOPAEDICS REFERRAL OP Referral Within 10 days (routine) Unspecified fracture of upper end of right humerus, initial encounter for closed fracture Pain in the shoulder Ordered: 01/16/2023 Health Maintenance Due Date Last Done Comments [...] as of this encounter Visit Diagnoses Diagnosis Unspecified fracture of upper end of right humerus, initial encounter for closed fracture- Primary Pain in the shoulder Pain in joint, shoulder region documented in this encounter Care Teams Curriculum Developer Relationship Specialty Start Date End Date Carolyn Story MD [address] [facility] [place] [address] PCP - General Family Medicine 01/16/23 documented as of this encounter
--- OUTSIDE RECORDS SUMMARY | 2023-04-27 00:18 | External Medical Summary | Summary of Care ---
Author Name Unknown Organization [facility] Address [address] [place] [address] Phone [phone] Care Team Providers Care Business Process Associate Name Role Phone Unavailable Primary Care Provider Unavailabl e Encounter Details Date Type Department Care Team Description 11/24/2022 Telephone Care Coordination [address] [place] [address] Meghna Guzman OSA Social History Tobacco Use Types Packs/Day Years Used Date Smoking Tobacco: Never Assessed Sex Assigned at Date Recorded Not on file documented as of this encounter Miscellaneous Notes * Telephone Encounter - MARILYNN Lee - 11/24/2022 12:01 PM EDT CITY MANAGER NOTE: UTC, 4 unable to lm as vm is full. CITY MANAGER closing task due to 4 [employer]. documented in this encounter Plan of Treatment Health Maintenance Due Date Last Done Comments Hepatitis B (1 of 3 - 3-dose series) 1983 COVID-19 Vaccine (#1) 01/07/1984 Depression Screening, Annual for Pts 12 and Over 1995 HIV Screening 07/06/1998 Hepatitis C Screening [...]
--- OUTSIDE RECORDS SUMMARY | 2023-04-27 00:18 | External Medical Summary | Summary of Care ---
Author Name Unknown Organization [facility] Address [address] [place] [address] Phone [phone] Care Team Providers Care Development Coach Name Role Phone Carolyn Story MD Primary Care Provider [phone] Reason for Visit * Reason Onset Date Comments case management 01/26/2023 Encounter Details Date Type Department Care Team Description 01/26/2023 Telephone Care Coordination [address] [place] [address] Kianna Knapp RN [address] [place] [address] case management Social History Tobacco Use Types Packs/Day Years Used Date Smoking Tobacco: Never Assessed Sex Assigned at Date Recorded Not on file documented as of this encounter Miscellaneous Notes * Telephone Encounter - Kianna Knapp RN - 01/26/2023 10:21 AM EDT UTC x 1 SHY Comp Left AMA Follow-up Post Discharge Attempted Phone Call First Attempt Call Outcome Left Voicemail/Message Plan To [...] filedocumented as of this encounter Care Teams Development Coach Relationship Specialty Start Date End Date Carolyn Story MD [address] [place], [place] [address] [address] PCP - General Family Medicine 01/16/23 documented as of this encounter
--- OUTSIDE RECORDS SUMMARY | 2023-04-27 00:18 | External Medical Summary | Summary of Care ---
Author Name Unknown Organization [facility] Address [address] [place] [address] Phone [phone] Care Team Providers Care Operations Expert Name Role Phone Unavailable Primary Care Provider Unavailabl e Encounter Details Date Type Department Care Team Description 11/23/2022 Telephone Care Coordination [address] [place] [address] Meghna Guzman OSA Social History Tobacco Use Types Packs/Day Years Used Date Smoking Tobacco: Never Assessed Sex Assigned at Date Recorded Not on file documented as of this encounter Miscellaneous Notes * Telephone Encounter - MARILYNN Lee - 11/23/2022 9:01 AM EDT FLATBED STITCHER NOTE: UTC, 3 unable to lm, vm is full. FLATBED STITCHER will make one more attempt. [facility] - [phone] documented in this encounter Plan of Treatment [...]
--- OUTSIDE RECORDS SUMMARY | 2023-04-27 00:18 | External Medical Summary | Summary of Care ---
Author Name Unknown Organization [facility] Address [address] [place] [address] Phone [phone] Care Team Providers Care Load Blocker Name Role Phone Unavailable Primary Care Provider Unavailabl e Encounter Details Date Type Department Care Team Description 11/18/2022 Telephone Care Coordination [address] [place] [address] Meghna Guzman OSA Social History Tobacco Use Types Packs/Day Years Used Date Smoking Tobacco: Never Assessed Sex Assigned at Date Recorded Not on file documented as of this encounter Miscellaneous Notes * Telephone Encounter - MARILYNN Lee - 11/18/2022 2:11 PM EDT pt needs assistance finding reliable transportation to be able to get to his appt without going to the ED DRY CANS BACK TENDER NOTE: [facility], 1 LMOM for pt to return my call to discuss transportation. [employer] C[employer] BACK TENDER PLAN: [facility] - [phone] documented in this encounter Plan of Treatment [...]
--- OUTSIDE RECORDS SUMMARY | 2023-04-27 00:18 | External Medical Summary | Summary of Care ---
Author Name Unknown Organization [facility] Address [address] [place] [address] Phone [phone] Care Team Providers Care Quilt Sewer Name Role Phone Unavailable Primary Care Provider Unavailabl e Encounter Details Date Type Department Care Team Description 11/21/2022 Telephone Care Coordination [address] [place] [address] Meghna Guzman OSA Social History Tobacco Use Types Packs/Day Years Used Date Smoking Tobacco: Never Assessed Sex Assigned at Date Recorded Not on file documented as of this encounter Miscellaneous Notes * Telephone Encounter - MARILYNN Lee - 11/21/2022 8:18 AM EDT pt needs assistance finding reliable transportation to be able to get to his appt without going to the ED SWEATBAND MAKER NOTE: [facility], 2 LMOM for pt to return my call to discuss transportation. SWEATBAND MAKER PLAN: [facility] - [phone] documented in this encounter Plan of Treatment [...]
[2023-04-27 01:10] LABS: BUN Creatinine Ratio 20.9 (10-20); Calcium 7.6 mg/dl (8.6-10.3); Creatinine Clr Calc Pharmacy 55.2 ml/min; Est GFR (African American) 62.9 ml/min; Est GFR (Non-African American) 54.3 ml/min; Magnesium 2.3 mg/dl (1.7-2.4); Phosphorus 7.3 mg/dl (2.5-4.9); Potassium 4.6 mmol/L (3.5-5.1)
[2023-04-27] MEDS: PENDING 1/2NSS+40mEq KCL IVF SCH ×2 (01:19→02:27)
[2023-04-27] MEDS ORDERED: SODIUM CHLOR 0.45% + 20MEQ KCL 1,000 ML IV SCH (01:30)
[2023-04-27] MEDS ORDERED: POTASSIUM CHLORIDE 40 MEQ in SODIUM CHLORIDE 0.45 % 1,000 ML IV SCH (02:15)
[2023-04-27] MEDS ORDERED: POTASSIUM CHLORIDE 40 MEQ in D5W AND 1/2NSS 1,000 ML IV SCH (03:30)
[2023-04-27] MEDS: PENDING D5 1/2NS+40mEq KCL IVF SCH ×3 (03:41→03:43)
[2023-04-27 04:07] LABS: Calcium 7.6 mg/dl (8.6-10.3); Creatinine Clr Calc Pharmacy 61.4 ml/min; Est GFR (African American) 71.6 ml/min; Est GFR (Non-African American) 61.8 ml/min; Magnesium 1.9 mg/dl (1.7-2.4); Phosphorus 2.2 mg/dl (2.5-4.9); Potassium 3.8 mmol/L (3.5-5.1)
[2023-04-27] MEDS: INSULIN ASPART PER UNIT CHARGE SC SCH ×2 (07:17→10:33)
[2023-04-27] MEDS ORDERED: ICU Protocol for HYPERglycemia SCH (07:30)
[2023-04-27] MEDS ORDERED: INSULIN ASPART PER UNIT CHARGE SC SCH ×3 (07:30→16:00)
[2023-04-27 07:52] LABS: Calcium 7.7 mg/dl (8.6-10.3); Creatinine Clr Calc Pharmacy 75.9 ml/min; Est GFR (African American) 92.4 ml/min; Est GFR (Non-African American) 79.7 ml/min; Magnesium 2.1 mg/dl (1.7-2.4); Phosphorus 2.4 mg/dl (2.5-4.9); Potassium 4.4 mmol/L (3.5-5.1)
[2023-04-27] MEDS ORDERED: LACTATED RINGER'S 500 ML IV ONE (08:39)
[2023-04-27] MEDS ORDERED: LANTUS PER UNIT CHARGE SC ONE (08:45)
--- NOTE | 2023-04-27 09:05 | Critical Care Progress Note ---
Date of Service April 27, 2023 Assessment & Plan (1) Acute metabolic encephalopathy: (2) DKA (diabetic ketoacidosis): Plan Reason Critically Ill: 37-year-old male with history of diabetes presents to the ICU with metabolic acidosis due to DKA, now on insulin drip and undergoing DKA protocol. Neuro - [facility] ICU: Negative Neuropathycontinue gabapentin Encephalopathylikely metabolic secondary to DKA. Monitor Cardiac - Tachycardiahemodynamically stable. Troponin within normal limits. EKG with sinus tachycardia, no ST changes, prolonged QTc of 541. Will avoid QTc prolonging medications -Expect improved with fluid resuscitation and treatment of acidosis -Continuous monitoring on telemetry Respiratory - Lungs clear to auscultation. No history of pulmonary disease and currently maintained oxygen saturation on room air. No evidence of labored breathing, no tachypnea Continuous monitoring pulse ox GI - We will advance diet as tolerated to DM type I diet RENAL/LYTES - AKIimproving. Continue DKA fluid protocol. Given additional 500 cc bolus of LR now. - Strict I's and O's ENDO - DKApatient with initial BSG greater than 600, positive ketones in urine, HCO3 3, pH less than 7, anion gap 40 -Every 4 hours BMPs and VBG's -Continue with insulin drip and fluid resuscitation per DKA protocol. -We will give basal insulin now and continue drip. HEME - H&H stable, monitor routine CBC ID - No indication for infectious process at this time LINES/IV ACCESS - Peripheral IVs DVT PROPHYLAXIS - SCDs Admission and Anticipated Discharge Date Admission Date: April 26, 2023 Subjective Patient seen and examined. He is somewhat lethargic this morning. He denies any overt complaints. He is hemodynamically stable. Saturations are adequate on room air. Review of Systems Review of Systems: All systems reviewed & are unremarkable except as noted in HPI & below Physical Exam Constitutional: + thin; no acute distress Eyes: PERRL, conjunctivae normal, anicteric sclerae ENMT: external ear and nose normal, oropharynx normal Neck: trachea midline, no thyromegaly Respiratory: normal respiratory effort, lungs clear to auscultation Cardiovascular: RRR, no murmur, no edema Heart Sounds: normal S1 and normal S2; no murmur Extremities: no edema Gastrointestinal (Abdomen): normal bowel sounds, soft, nontender, no hepatosplenomegaly Musculoskeletal: no cyanosis or clubbing, extremities motor strength 5/5 Skin: no rashes, warm and dry Neurologic: PERRL, EOMI, accommodation nl, no face palsy, no dysarthria Psychiatric: A+Ox3, euthymic affect Results & Data Results & Data Vital Signs (Past 12 Hours) Vital Signs Temp Pulse Pulse Resp BP BP BP 04/27/23 08:33 37 C 121 H 16 117/57 L 04/27/23 08:00 04/27/23 08:00 120 H 04/27/23 07:30 104/50 L 04/27/23 07:30 122 H 25 H 04/27/23 07:00 122 H 12 04/27/23 06:00 118 H 19 106/57 L 04/27/23 05:30 122 H 18 120/61 04/27/23 05:00 36.9 C 128 H 23 92/45 L 04/27/23 04:30 123 H 26 H 103/54 L 04/27/23 04:00 126 H 27 H 91/44 L 04/27/23 03:30 122 H 5 L 97/53 L 04/27/23 03:00 122 H 28 H 95/51 L 04/27/23 02:30 126 H 30 H 94/51 L 04/27/23 02:00 124 H 29 H 04/27/23 01:30 133 H 41 H 108/59 L 04/27/23 01:00 36.5 C 135 H 30 H 115/64 04/27/23 00:30 139 H 32 H 04/27/23 00:30 86/62 L 04/27/23 00:20 142 H 28 H 04/27/23 00:10 141 H 19 04/27/23 00:00 138 H 04/27/23 00:00 112/82 04/27/23 00:00 140 H 32 H 04/27/23 00:00 36.5 C 140 H 27 H 112/82 04/26/23 23:55 96/59 L 04/26/23 23:55 141 H 13 04/26/23 23:50 142 H 25 H 04/26/23 23:45 04/26/23 23:40 142 H 29 H 04/26/23 23:30 139 H 19 04/26/23 23:21 138 H 23 04/26/23 23:18 04/26/23 23:15 36.4 C L 135 H 26 H 95/63 L 04/26/23 23:00 136 H 21 04/26/23 22:45 140 H 21 93/69 L 04/26/23 22:35 134 H 19 93/69 L 04/26/23 22:22 133 H 20 90/63 L 04/26/23 22:08 132 H 20 90/63 L 04/26/23 22:00 132 H 20 90/63 L 04/26/23 21:45 132 H 20 84/57 L 04/26/23 21:03 132 H 22 95/56 L Pulse Ox Pulse Ox O2 Del Method O2 Del Method O2 Flow Rate 04/27/23 08:33 96 Room Air 04/27/23 08:00 Room Air 04/27/23 08:00 04/27/23 07:30 04/27/23 07:30 94 Room Air 04/27/23 07:00 96 04/27/23 06:00 97 Room Air 04/27/23 05:30 96 Room Air 04/27/23 05:00 96 Room Air 04/27/23 04:30 96 Room Air 04/27/23 04:00 97 Room Air 04/27/23 03:30 96 Room Air 04/27/23 03:00 96 Room Air 04/27/23 02:30 97 Room Air 04/27/23 02:00 98 Room Air 04/27/23 01:30 98 Room Air 04/27/23 01:00 100 Room Air 04/27/23 00:30 100 Room Air 04/27/23 00:30 Room Air 04/27/23 00:20 100 Room Air 04/27/23 00:10 99 Room Air 04/27/23 00:00 04/27/23 00:00 Room Air 04/27/23 00:00 100 Room Air 04/27/23 00:00 100 Room Air 04/26/23 23:55 Room Air 04/26/23 23:55 99 Room Air 04/26/23 23:50 99 Room Air 04/26/23 23:45 Room Air 04/26/23 23:40 95 Room Air 04/26/23 23:30 100 Room Air 04/26/23 23:21 100 Room Air 04/26/23 23:18 100 Room Air 04/26/23 23:15 97 Room Air 04/26/23 23:00 100 Room Air 04/26/23 22:45 100 Room Air 04/26/23 22:35 100 Room Air 04/26/23 22:22 100 Room Air 04/26/23 22:08 100 Room Air 04/26/23 22:00 100 Room Air 04/26/23 21:45 100 Room Air 04/26/23 21:03 95 Nasal Cannula 2 Coding Level of Care Code 82921 SUB INP/OBS CARE /35MIN Diagnoses Acute metabolic encephalopathy G93.41 DKA (diabetic ketoacidosis) E10.11 Diabetes mellitus complication detail: with coma Diabetes mellitus type: type 1 (2) DKA (diabetic ketoacidosis) Diabetes mellitus complication detail: with coma Diabetes mellitus type: type 1 Qualified Code(s): E10.11 - Type 1 diabetes mellitus with ketoacidosis with coma
--- NOTE | 2023-04-27 09:09 | XRay Report ---
XR chest 1V portable HISTORY: 37 years-old Male Sepsis acute sepsis COMPARISON: 01/24/2023, humerus radiographs 02/11/2023. TECHNIQUE: AP view of the chest FINDINGS: Cardiomediastinal and hilar silhouettes are unchanged. No pneumothorax, pleural effusion or airspace consolidation. Partially imaged right proximal humeral fracture deformity again noted. IMPRESSION: No acute process. ACT 112: Negative or not required by law. The above report was generated using voice recognition software. It may contain grammatical, syntax o r spelling errors. Electronically signed by: Elpidio Shafer M.D. 04/27/2023 9:08 AM
[2023-04-27] MEDS ORDERED: ONDANSETRON INJ 2 MG/ML 2 ML VIAL IV PRN (09:47)
[2023-04-27 11:50] LABS: BUN Creatinine Ratio 17.5 (10-20); Calcium 7.5 mg/dl (8.6-10.3); Creatinine Clr Calc Pharmacy 84.7 ml/min; Est GFR (African American) 105.6 ml/min; Est GFR (Non-African American) 91.1 ml/min; Magnesium 1.9 mg/dl (1.7-2.4); Phosphorus 2.7 mg/dl (2.5-4.9); Potassium 4.7 mmol/L (3.5-5.1)
[2023-04-27] MEDS ORDERED: LACTATED RINGER'S 1,000 ML IV SCH (12:30)
--- NOTE | 2023-04-27 14:05 | Pharmacy Report ---
Pharmacy Glycemic Short Note 2 - Date of Service April 27, 2023 - Glycemic Short BSG Results (Last 24 hours): 04/26/23 04/26/23 04/26/23 20:12 20:20 20:30 Glucose 903 H* POC Glucose > 600 H* POC Glucose (other) > 700 H* 04/26/23 04/26/23 04/26/23 21:19 22:50 23:20 Glucose 876 H* 774 H* POC Glucose > 600 H* POC Glucose (other) 04/27/23 04/27/23 04/27/23 00:10 02:13 03:13 Glucose 590 H* POC Glucose 296 H 185 H POC Glucose (other) 04/27/23 04/27/23 04/27/23 03:28 04:16 05:13 Glucose 172 H POC Glucose 163 H 145 H POC Glucose (other) 04/27/23 04/27/23 04/27/23 06:21 06:47 07:14 Glucose POC Glucose 114 H 119 H 174 H POC Glucose (other) 04/27/23 04/27/23 04/27/23 07:19 08:13 09:12 Glucose 213 H POC Glucose 175 H 213 H POC Glucose (other) 04/27/23 04/27/23 04/27/23 10:11 10:29 11:22 Glucose 209 H POC Glucose 128 H 138 H POC Glucose (other) 04/27/23 04/27/23 11:23 12:32 Glucose POC Glucose 145 H 150 H POC Glucose (other) OUTPATIENT ANTIDIABETIC REGIMEN: * Outpatient prescription Lantus 40 units BID + Humalog 20 units TIDM- however usually requires significantly less in hospital * A1c pending. ASSESSMENT: * Patient is a 37 year old male with history of DM1 admitted in DKA. Initial labs: pH-<7.0, AG-41, bicarb-4, BSG-903. Initiated on insulin drip per DKA protocol. Pharmacy consulted to assist with glycemic management/drip transition. * Patient trended downward overnight, Bicarb/gap improved. * Initiated lantus this AM (Bicarb 18, anion gap 18) per physician as patient has hx of leaving AMA and wanted to give dose * Insulin infusion continued, BSG downtrended. 1120 labs showed Bicarb 21, Anion gap 12. Patient mentation had improved. BSGs in mid 100s, drip rate @1.2 units/hr. Transitioned off drip at this point. D5+1/2NS+20 meq of KCL transitioned to lactated ringers. * Patient known to glycemic service - typically receives ~15-20 units/day of basal insulin while admitted. * Initiated Novolog orders similar to weight based stress of 2. PLAN FOR INPATIENT GLYCEMIC CONTROL: * Hold outpatient oral diabetes medications * Basal insulin * Lantus 20 units QAM * Bolus insulin * NovoLog per scale ACHS or Q6hrs while NPO * Goal Range: Low 110 mg/dL - High 160 mg/dL * Correction Factor: 35 mg/dL/unit * Nutritional / Prandial insulin per carb ratio of 1 unit per 12 grams CHO consumed
[2023-04-27 15:47] LABS: Creatinine Clr Calc Pharmacy 87.3 ml/min; Est GFR (African American) 109.4 ml/min; Est GFR (Non-African American) 94.4 ml/min; Phosphorus 2.7 mg/dl (2.5-4.9)
--- NOTE | 2023-04-27 15:49 | Hospitalist Progress Note ---
Date of Service April 27, 2023 Assessment & Plan (1) DKA (diabetic ketoacidosis): Plan: 37yo male with poorly controlled Type I DM presenting with severe DKA. BSG >700, pH <7, HCO3=4, AG=41 Likely from medical noncompliance. There is no evidence of infection-he has been afebrile. Respiratory viral bio fire panel is negative, procalcitonin normal, urinalysis negative for infection, chest x-ray negative -Admitted to ICU and started on insulin drip and bicarbonate drip along with aggressive IV fluids -Anion gap was down to 12 and he was converted to Lantus and NovoLog however he continues to be unable to eat anything and anion gap now rising back up to 17, pH on VBG remains normal at 7.36 -Change IV fluids from LR to D5 LR at 80 MLS per hour -Asked pharmacy to lower his goal range to 100-140 and tighten correction factor to help close the gap -Check BMP and VBG at 1900 tonight and then again in the morning -Zofran PRN nausea-QTc is no longer prolonged and this is safe -Continue every 4 hour glucose checks -Advance diet to clear liquids in case he is feeling better and willing to try some this evening (2) BERNARD (acute kidney injury): Plan: Acute kidney failure, POA With hyperkalemia all secondary to DKA Hyperkalemia now resolved Creatinine 1.71 on admission and now down to 1.15 -Continue IV fluids Follow BMP (3) Acute metabolic encephalopathy: Plan: Secondary to DKA, now resolved but remains drowsy (4) Vomiting: Plan: Improved but remains with low appetite Advance diet as tolerated (5) Poorly controlled type 1 diabetes mellitus: Plan: Last hemoglobin A1c 9.7% in 11/2022 Check hemoglobin A1c here in the morning (6) Diabetic peripheral neuropathy associated with type 1 diabetes mellitus: Plan: Continue home gabapentin (7) Smoker: Plan: Encourage cessation (8) B12 deficiency: Plan: Level was low in 2021 at 250 Check level in the morning (9) Fracture of proximal humerus with nonunion: Plan: Follows with Dr. Kaye and has been in the ER twice in the last few months for pain from his nonunion of the right humerus Encourage follow-up with orthopedics after discharge Right upper extremity precautions Plan DVT prophylaxis SCDs Disposition-continued stay but downgrade from ICU to PCU Admission and Anticipated Discharge Date Admission Date: April 26, 2023 Subjective Pt remains very drowsy but does wake up. Denies abd pain or nausea but still no appetite. No fevers. Is weaned off insulin gtt and bicarb gtt and on Lantus and Novolog, IVFs. Tele with ST, NSR Physical Exam Constitutional: + ill appearing and cooperative; no acut e distress Neck: trachea midline, no thyromegaly Respiratory: normal respiratory effort, lungs clear to auscultation Cardiovascular: RRR, no murmur, no edema Chest (Breasts): Chest: normal inspection of chest Gastrointestinal (Abdomen): normal bowel sounds, soft, nontender, no hepatosplenomegaly Musculoskeletal: Extremities: extremities normal to inspection; no cyanosis and no clubbing Skin: no rashes, warm and dry right heel callus but no ulcer Neurologic: moves all extremities; no focal motor deficits Psychiatric: Orientation: oriented to person and oriented to place; + not alert (drowsy but wakes up easily) Lymphatic: no lymphedema Results & Data Results & Data Vital Signs (Past 12 Hours) Vital Signs Temp Pulse Pulse Resp BP BP Pulse Ox 04/27/23 15:30 133/70 04/27/23 15:30 117 H 15 98 04/27/23 15:00 115 H 19 96 04/27/23 15:00 102/59 L 04/27/23 14:30 114 H 17 96 04/27/23 14:30 117/62 04/27/23 14:00 131/70 04/27/23 14:00 120 H 18 95 04/27/23 13:30 130/64 04/27/23 13:30 116 H 20 96 04/27/23 13:00 113 H 14 95 04/27/23 13:00 116/57 L 04/27/23 12:00 127 H 24 96 04/27/23 11:30 119/59 L 04/27/23 11:30 116 H 20 93 04/27/23 11:00 115 H 19 97 04/27/23 11:00 117/58 L 04/27/23 10:30 115 H 19 97 04/27/23 10:30 116/60 04/27/23 10:00 97/57 L 04/27/23 10:00 115 H 21 95 04/27/23 09:35 140/80 04/27/23 09:35 134 H 25 H 98 04/27/23 09:00 112/58 L 04/27/23 09:00 119 H 13 97 04/27/23 08:33 37 C 121 H 16 117/57 L 96 04/27/23 08:30 117/57 L 04/27/23 08:30 120 H 24 96 04/27/23 08:00 114/53 L 04/27/23 08:00 121 H 7 L 96 04/27/23 08:00 04/27/23 08:00 120 H 04/27/23 07:30 104/50 L 04/27/23 07:30 122 H 25 H 94 04/27/23 07:00 122 H 12 96 04/27/23 06:00 118 H 19 106/57 L 97 04/27/23 05:30 122 H 18 120/61 96 04/27/23 05:00 36.9 C 128 H 23 92/45 L 96 04/27/23 04:30 123 H 26 H 103/54 L 96 04/27/23 04:00 126 H 27 H 91/44 L 97 O2 Del Method 04/27/23 15:30 04/27/23 15:30 04/27/23 15:00 04/27/23 15:00 04/27/23 14:30 Room Air 04/27/23 14:30 04/27/23 14:00 04/27/23 14:00 04/27/23 13:30 04/27/23 13:30 Room Air 04/27/23 13:00 04/27/23 13:00 04/27/23 12:00 04/27/23 11:30 04/27/23 11:30 04/27/23 11:00 04/27/23 11:00 04/27/23 10:30 Room Air 04/27/23 10:30 04/27/23 10:00 04/27/23 10:00 04/27/23 09:35 04/27/23 09:35 04/27/23 09:00 04/27/23 09:00 Room Air 04/27/23 08:33 Room Air 04/27/23 08:30 04/27/23 08:30 04/27/23 08:00 04/27/23 08:00 04/27/23 08:00 Room Air 04/27/23 08:00 04/27/23 07:30 04/27/23 07:30 Room Air 04/27/23 07:00 04/27/23 06:00 Room Air 04/27/23 05:30 Room Air 04/27/23 05:00 Room Air 04/27/23 04:30 Room Air 04/27/23 04:00 Room Air Laboratory Results BMP, VBG, phosphorus, magnesium reviewed, 1500 labs also reviewed which included BMP, VBG PG Care Time/CCT Total # of Minutes Spent Total Time Spent with Patient: Total time spent is greater than 50% in coordination of care (as documented) at patient's floor/unit and/or counseling patient: Coding Level of Care Code 00327 SUB INP/OBS CARE 3/50MIN Diagnoses DKA (diabetic ketoacidosis) E10.11 Diabetes mellitus complication detail: with coma Diabetes mellitus type: type 1 BERNARD (acute kidney injury) N17.9 Acute metabolic encephalopathy G93.41 Vomiting R11.2 Nausea presence: with nausea Vomiting type: unspecified Poorly controlled type 1 diabetes mellitus E10.65 Diabetic peripheral neuropathy associated with type 1 diabetes mellitus E10.42 Smoker F17.200 B12 deficiency E53.8 Fracture of proximal humerus with nonunion S42.209K (1) DKA (diabetic ketoacidosis) Diabetes mellitus complication detail: with coma Diabetes mellitus type: type 1 Qualified Code(s): E10.11 - Type 1 diabetes mellitus with ketoacidosis with coma (4) Vomiting Nausea presence: with nausea Vomiting type: unspecified Qualified Code(s): R11.2 - Nausea with vomiting, unspecified
[2023-04-27] MEDS ORDERED: ALBUTEROL HFA 8 GM INHALER INH PRN (17:01)
[2023-04-27] MEDS ORDERED: D5W AND LACTATED RINGERS 1,000 ML IV SCH (17:01)
--- NOTE | 2023-04-27 18:01 | Discharge Summary ---
Discharge Summary Date of Service April 27, 2023 Notes For Next Care Provider Patient left AGAINST MEDICAL ADVICE Medication Changes From Visit None Admission HPI Per Admitting Provider Laron Horton is a 37yo male with history of DM-I, medication non-adherence with multiple hospital admissions for DKA presenting with DKA. Patient does not provide much history in the ER due to severity of illness. He reports he has missed some of his medication. He complains of being very thirsty as well as some nausea and non-bloody/non-bilious vomiting. Otherwise, denies fever, chills, cough, SOB, chest pain, palpitations, abdominal pain. No additional complaints. ER Course: NSS x 2L bolus LR x 1L bolus Insulin gtt HCO3 gtt Versed x 1mg IV Zosyn 4.5gm IV Principal Dx & Hospital Course #1 = Principal Diagnosis (1) DKA (diabetic ketoacidosis): 37yo male with poorly controlled Type I DM presenting with severe DKA. BSG >700, pH <7, HCO3=4, AG=41 Likely from medical noncompliance. There is no evidence of infection-he has been afebrile. Respiratory viral bio fire panel is negative, procalcitonin normal, urinalysis negative for infection, chest x-ray negative -Admitted to ICU and started on insulin drip and bicarbonate drip along with aggressive IV fluids -Anion gap was down to 12 and he was converted to Lantus and NovoLog however he continues to be unable to eat anything and anion gap now rising back up to 17, pH on VBG remains normal at 7.36 -Change IV fluids from LR to D5 LR at 80 MLS per hour -Asked pharmacy to lower his goal range to 100-140 and tighten correction factor to help close the gap -Check BMP and VBG at 1900 tonight and then again in the morning -Zofran PRN nausea-QTc is no longer prolonged and this is safe -Continue every 4 hour glucose checks -Advance diet to clear liquids in case he is feeling better and willing to try some this evening (2) BERNARD (acute kidney injury): Acute kidney failure, POA With hyperkalemia all secondary to DKA Hyperkalemia now resolved Creatinine 1.71 on admission and now down to 1.15 -Continue IV fluids Follow BMP (3) Acute metabolic encephalopathy: Secondary to DKA, now resolved but remains drowsy (4) Vomiting: Improved but remains with low appetite Advance diet as tolerated (5) Poorly controlled type 1 diabetes mellitus: Last hemoglobin A1c 9.7% in 11/2022 Check hemoglobin A1c here in the morning (6) Diabetic peripheral neuropathy associated with type 1 diabetes mellitus: Continue home gabapentin (7) Smoker: Encourage cessation (8) B12 deficiency: Level was low in 2021 at 250 Check level in the morning (9) Fracture of proximal humerus with nonunion: Follows with Dr. Kaye and has been in the ER twice in the last few months for pain from his nonunion of the right humerus Encourage follow-up with orthopedics after discharge Right upper extremity precautions Plan DVT prophylaxis SCDs Disposition-patient was recommended to stay in the hospital, but in the evening on 04/27, he was more awake and alert as per nursing, ate clear liquids for dinner and decided to leave the hospital AGAINST MEDICAL ADVICE Discharge Exam Constitutional + ill appearing and cooperative; no acute distress Neck trachea midline, no thyromegaly Respiratory normal respiratory effort, lungs clear to auscultation Cardiovascular RRR, no murmur, no edema Chest (Breasts) Chest: normal inspection of chest Gastrointestinal (Abdomen) normal bowel sounds, soft, nontender, no hepatosplenomegaly Musculoskeletal Extremities: extremities normal to inspection; no cyanosis and no clubbing Skin no rashes, warm and dry Neurologic moves all extremities; no focal motor deficits Psychiatric Orientation: oriented to person and oriented to place; + not alert (drowsy but wakes up easily) Lymphatic no lymphedema Updated Medication List Medication Instructions Recorded Confirmed Type insulin syringe-needle U-100 0.3 #100 ea 07/31/21 02/17/23 Rx mL 31 gauge x 15/64" acetaminophen 500 mg tablet 1,000 mg PO Q8 PRN Pain 08/19/22 02/17/23 History (Tylenol Extra Strength) blood-glucose meter (OneTouch #1 ea 08/22/22 02/17/23 Rx Verio Reflect Meter) ondansetron HCl 4 mg tablet 4 mg PO TID PRN NAUSEA/VOMITING 10/04/22 02/17/23 History albuterol sulfate 90 mcg/actuation 2 puff inhalation Q6H PRN 01/30/23 02/17/23 Rx aerosol inhaler shortness of breath or wheezing #8.5 grams gabapentin 100 mg capsule 200 mg (2 x 100 mg) PO TID pain 01/30/23 02/17/23 Rx #90 caps insulin glargine 100 unit/mL (3 40 unit (0.4 mL) subcut BID #15 mL 01/30/23 02/17/23 Rx mL) subcutaneous pen (Lantus Solostar U-100 Insulin) insulin lispro 100 unit/mL 20 unit (0.2 mL) subcut TID #30 mL 01/30/23 02/17/23 Rx subcutaneous pen (Humalog KwikPen (U-100) Insulin) lancets 33 gauge #100 ea 01/30/23 02/17/23 Rx sildenafil 50 mg tablet 50 mg PO DAILY PRN sexual activity 02/02/23 02/17/23 Rx #20 tabs blood sugar diagnostic (OneTouch #100 ea 04/04/23 Rx Verio test strips) Hospital Stay Data Consultations 04/26/23 21:37 Consult Sexer Stat 04/26/23 21:38 ED Decision to Admit Stat Pending Results Patient Have Any Pending Studies at Discharge: Yes (Blood cultures) Total Time Total Time Spent Total Time Spent (In Minutes): 35 min Coding Level of Care Code 41603 INP/OBS DISCH >30 MIN Diagnoses DKA (diabetic ketoacidosis) E10.11 Diabetes mellitus complication detail: with coma Diabetes mellitus type: type 1 BERNARD (acute kidney injury) N17.9 Acute metabolic encephalopathy G93.41 Vomiting R11.2 Nausea presence: with nausea Vomiting type: unspecified Poorly controlled type 1 diabetes mellitus E10.65 Diabetic peripheral neuropathy associated with type 1 diabetes mellitus E10.42 Smoker F17.200 B12 deficiency E53.8 Fracture of proximal humerus with nonunion S42.209K
[2023-04-28] MEDS ORDERED: INSULIN ASPART PER UNIT CHARGE SC SCH
[2023-04-28] MEDS ORDERED: LANTUS PER UNIT CHARGE SC SCH (09:00)
--- NOTE | 2023-04-28 19:02 | Electrocardiogram Report ---
Test Reason : Blood Pressure : / mmHG Vent. Rate : 140 BPM Atrial Rate : 140 BPM P-R Int : 128 ms QRS Dur : 088 ms QT Int : 364 ms P-R-T Axes : 071 084 060 degrees QTc Int : 555 ms Sinus tachycardia Possible Left atrial enlargement Borderline ECG When compared with ECG of 24-JAN-2023 22:30, No significant change was found Confirmed by Rush Laguerre ([id number]) on 04/28/2023 7:01:59 PM Referred By: REFERRED SELF Confirmed By:Rush Laguerre
--- NOTE | 2023-04-28 19:02 | Electrocardiogram Report ---
Test Reason : Blood Pressure : / mmHG Vent. Rate : 112 BPM Atrial Rate : 112 BPM P-R Int : 140 ms QRS Dur : 078 ms QT Int : 326 ms P-R-T Axes : 060 054 057 degrees QTc Int : 444 ms Sinus tachycardia Nonspecific T wave abnormality When compared with ECG of 26-APR-2023 20:06, No significant change Confirmed by Rush Laguerre ([id number]) on 04/28/2023 7:02:23 PM Referred By: REFERRED SELF Confirmed By:Rush Laguerre
[2023-04-29 14:11] LABS: A calco-baum cmplx NotReported Not Detected (NotDetected); Bact fragilis Not Reported Not Detected (NotDetected); Blood Culture Id Panel PCR Panel Negative (NotDetected); C auris Not Reported Not Detected (NotDetected); Calbicans Not Reported Not Detected (NotDetected); Candida glabrata Not Reported Not Detected (NotDetected); Candida krusei Not Reported Not Detected (NotDetected); Cneoformans/gatti Not Reported Not Detected (NotDetected); Cparapsilosis Not Reported Not Detected (NotDetected); E cloacae compx Not Reported Not Detected (NotDetected); Efaecalis Not Reported Not Detected (NotDetected); Efaecium Not Reported Not Detected (NotDetected); Enterobacterales Not Reported Not Detected (NotDetected); Escherichia coli Not Reported Not Detected (NotDetected); H influenzae Not Reported Not Detected (NotDetected); K aerogenes Not Reported Not Detected (NotDetected); Koxytoca Not Reported Not Detected (NotDetected); Kpneumoniae grp Not Reported Not Detected (NotDetected); Lmonocyt Not Reported Not Detected (NotDetected); N meningitidis Not Reported Not Detected (NotDetected); P aeruginosa Not Reported Not Detected (NotDetected); Proteus spp Not Reported Not Detected (NotDetected); Salmonella spp Not Reported Not Detected (NotDetected); Smarcescens Not Reported Not Detected (NotDetected); Staph lugdunensis Not Reported Not Detected (NotDetected); Staph spp. Not Reported Not Detected (NotDetected); Staphaureus Not Reported Not Detected (NotDetected); Staphepi Not Reported Not Detected (NotDetected); Stenmaltophilia Not Reported Not Detected (NotDetected); Strep agal(GrpB) Not Reported Not Detected (NotDetected); Strep pneum Not Reported Not Detected (NotDetected); Strep pyog (GrpA) Not Reported Not Detected (NotDetected); Strep spp Not Reported Not Detected (NotDetected)
== END 2023-04-27 18:11 | disposition left against medical advice (07) | DRG 637 ==
LOC: ED 20:00 → 1E 22:36 → SUATTDRO 22:36 → 1E 23:14

== ENCOUNTER 2023-06-30 18:25 | Inpatient (IN) ==
[2023-06-30] MEDS: SODIUM CHLORIDE 0.9% 1,000 ML IV STA (18:45)
[2023-06-30] MEDS: SODIUM CHLORIDE 0.9% 1,000 ML IV SCH (18:46)
--- NOTE | 2023-06-30 19:01 | Emergency Department Note ---
Impression & Plan DKA (diabetic ketoacidosis), AMS (altered mental status), BERNARD (acute kidney injury), Acute hyperkalemia ED Provider Note Provider: Nj James MD DATE OF SERVICE: 06/30/2023 CHIEF COMPLAINT: Confusion, breathing fast HISTORY OF PRESENT ILLNESS: Patient is a 37-year-old gentleman history of type 1 diabetes poorly controlled with recurrent DKA called his girlfriend found altered today. Brought by EMS. Blood though sugar reading high. Patient is unsure when he received or used insulin last. Denies pain to me. Denies falls. Somewhat drowsy however. Patient appears somewhat dehydrated and difficulty with IV access prior to arrival. Patient is unable to provide significant additional history but denies any pain. PAST MEDICAL HISTORY: As noted above MEDICATIONS: Reviewed home medication list from recent admission. SOCIAL HISTORY: History of smoking PHYSICAL EXAM: GENERAL: alert to verbal stimuli but drowsy and resting otherwise Head: normocephalic and atraumatic EYES: No injection, discharge or icterus. PERRL NECK: Trachea midline. Supple. ENT: Mucous membranes pink but extremely dry and cracked. No bleeding LUNGS: Airway patent. No retractions. Breath sounds clear but tachypneic HEART: Regular tachycardic rate and rhythm. No chest wall tenderness ABDOMEN: Soft and non-tender, without guarding or rebound. SKIN: Acyanotic, warm, dry, without rashes EXTREMITIES: Without swelling, tenderness or deformity NEUROLOGICAL: Withdraws to pain in all 4 extremities. Not really following commands. No obvious facial droop. EK bpm sinus tachycardia. No PVC or PAC. No acute ST segment elevation or depression with a QTc of 450. CONTINUOUS CARDIAC MONITORING: was ordered and showed a heart rate of 110s-130s bpm in sinus tachycardia Patient's laboratory studies and imaging reviewed. Differential includes Infection, dehydration, metabolic abnormality, hypo/hyperglycemia, electrolyte disturbance, anemia, hypoxia, cardiac sources, intracerebral event, toxicologic, neurologic, as well as other pathologies. IMPRESSION/MEDICAL DECISION MAKING: Patient mildly arousable but drowsy upon arrival. Seems quite dehydrated. Blood pressures somewhat low upon arrival. No fever. No reported trauma. Reviewed prior medical record. Seem consistent likely DKA given his undetectably high glucose. 18-gauge IV placed by myself in the patient's left upper arm as well as additional placed by staff in the left ankle. Multiple IV fluid boluses were administered. [id number] blood work obtained as well as blood gas. Severely acidotic. Formal chemistries pending including glucoses greater than 700 on [id number] testing here. No evidence of trauma. No history of trauma. Seems consistent likely metabolic encephalopathy from his DKA. Insulin drip ordered. Require further care here at the hospital. Chest x-ray without findings of pneumonia. Leukocytosis on blood work likely in my opinion more reactive but will send procalcitonin. Discussed again both with the hospitalist as well as the ICU team here. ICU requested an amp of bicarb which was given. Given some IV calcium as well for the hyperkalemia. Insulin drip again to be started which should help with hyperkalemia and his acidosis from his DKA. Will monitor his blood pressures which are bit tenuous here. Formal glucose returns at 1007. Anion gap 45. Procalcitonin does return elevated orders for blood cultures and empiric cefepime was placed. Patient transferring to the ICU for further care. DIAGNOSIS: DKA, encephalopathy, BERNARD, hyperkalemia DISPOSITION: Hospitalist will evaluate Critical Care I have personally spent 45 minutes of critical care time in the direct management of this patient. This includes bedside care, interpretation of diagnostic studies, and testing, discussion with consultants, patient, and other required patient management activities. These 45 minutes is in excess of all separately billable procedures. Past Med/Surg History Medical History Fracture of proximal humerus with nonunion Poorly controlled type 1 diabetes mellitus Major depressive disorder, recurrent severe without psychotic features Medical non-compliance Surgical History No significant past surgical history Family History Other Diabetes Social History Smoking Status: Current every day smoker Tobacco Type: Cigarettes Cigarettes Per Day: 1 pack; Second Hand Exposure: No; Do You Dip or Chew Tobacco: No; Hx Alcohol Use: No Hx Substance Use: Yes Prescribed Medications: Marijuana Last Used Substance: Unknown Preferred Language: [place] Islander Communication Ability: Impaired Visual Impairment: Limited Hearing Ability: Normal 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 current occupational status: disabled How many Children do You have: 0 Feels Safe at Home: Yes Childhood Exposure to Second-Hand Smoke: No Diet: diabetic and regular caffeine: Yes during the past year weight has: remained stable Dental Care, Regularly: Yes Physical Activity Frequency: Daily Seatbelt Use: always Sunscreen Use: No Do you think of yourself as: straight/heterosexual Sexual Activity: has been sexually active within the last 12 months Gender Identity: Male Assistive Devices: Other Allergies Allergies Allergy/AdvReac Type Severity Reaction Status Date / Time codeine Allergy Intermediate Rash Verified 06/30/23 20:14 erythromycin base Allergy Unknown HAPPENED Verified 06/30/23 20:14 A SMALL CHILD Home Meds Home Medications Medication Instructions Recorded Confirmed acetaminophen 500 mg tablet 1,000 mg PO Q8 PRN Pain 08/19/22 06/30/23 (Tylenol Extra Strength) ondansetron HCl 4 mg tablet 4 mg PO TID PRN NAUSEA/VOMITING 10/04/22 06/30/23 gabapentin 100 mg capsule 100 mg PO TID PRN Pain 06/30/23 06/30/23 insulin glargine 100 unit/mL (3 0 unit subcut DIRECTED 06/30/23 06/30/23 mL) subcutaneous pen (Lantus Solostar U-100 Insulin) Previous Rx's Medication Instructions Recorded insulin syringe-needle U-100 0.3 #100 ea 07/31/21 mL 31 gauge x 15/64" blood-glucose meter (OneTouch #1 ea 08/22/22 Verio Reflect Meter) albuterol sulfate 90 mcg/actuation 2 puff inhalation Q6H PRN 01/30/23 aerosol inhaler shortness of breath or wheezing #8.5 grams insulin lispro 100 unit/mL 20 unit (0.2 mL) subcut TID #30 mL 01/30/23 subcutaneous pen (Humalog KwikPen (U-100) Insulin) lancets 33 gauge #100 ea 01/30/23 sildenafil 50 mg tablet 50 mg PO DAILY PRN sexual activity 02/02/23 #20 tabs blood sugar diagnostic (OneTouch #100 ea 04/04/23 Verio test strips) Results & Data (ED) Vital Signs Vital Signs - 24 hr 06/30/23 18:29 06/30/23 18:30 06/30/23 18:31 Temperature 36.5 C Temperature Source Oral Pulse Rate 128 H 135 H 135 H Pulse Rate [Apical] Respiratory Rate 20 18 Respiratory Effort / Characteristics Respiratory Depth Blood Pressure 86/55 L Blood Pressure [Right Arm] Blood Pressure Mean 65 Blood Pressure Mean [Right Arm] Pulse Oximetry 100 97 Oxygen Delivery Method Room Air Room Air Sepsis Recent Fever Within 48 Hours No Sepsis New/Unexplained Change in Mental Status Yes Sepsis Action Taken by Nursing Physician Notified 06/30/23 18:35 06/30/23 19:00 06/30/23 19:20 Temperature Temperature Source Pulse Rate Pulse Rate [Apical] 133 H 128 H 121 H Respiratory Rate 20 20 18 Respiratory Effort / Characteristics Non-Labored Respiratory Depth Normal Blood Pressure Blood Pressure [Right Arm] 86/55 L 90/53 L 84/55 L Blood Pressure Mean Blood Pressure Mean [Right Arm] 65 65 64 Pulse Oximetry 97 100 100 Oxygen Delivery Method Room Air Room Air Room Air Sepsis Recent Fever Within 48 Hours Sepsis New/Unexplained Change in Mental Status Sepsis Action Taken by Nursing Laboratory Data 06/30/23 18:48 06/30/23 18:48 Lab Results 06/30/23 06/30/23 06/30/23 Range/Units 18:30 18:48 18:52 WBC 27.86 H (4.8-10.8) K/ul RBC 3.98 L (4.70-6.10) M/uL Hgb 12.5 L (14.0-18.0) g/dl POC Hgb 13.9 L (14.0-18.0) g/dl Hct 42.1 (42.0-52.0) % POC Hct 41 L (42-52) % MCV 105.8 H (80.0-100.0) fL MCH 31.4 (25.0-34.0) pg MCHC 29.7 L (32.0-36.0) g/dL RDW Std Deviation 52.9 H (36.4-46.3) fL RDW Coeff of Margarita 13.4 (11.5-14.5) % Plt Count 431 H (130-400) K/uL MPV 9.7 (9.4-12.4) fL Immature Gran % (Auto) 5.3 % Neut % (Auto) 81.5 % Lymph % (Auto) 6.2 % Campbell % (Auto) 6.6 % Eos % (Auto) 0.2 % Baso % (Auto) 0.2 % Neut # (Auto) 22.72 H (1.40-6.50) K/uL Lymph # (Auto) 1.73 (1.20-3.40) K/uL Campbell # (Auto) 1.83 H (0.11-0.59) K/uL Eos # (Auto) 0.06 (0.00-0.50) K/uL Baso # (Auto) 0.05 (0.00-0.20) K/uL Immature Gran # (Auto) 1.47 H (0.01-0.20) K/uL PT 10.9 (9.0-12.0) Seconds INR 1.0 (0.9-1.1) APTT 32 H (21-31) Seconds PTT Ratio 1.1 VBG pH < 7.00 L (7.36-7.41) VBG pCO2 25 L (38-50) mmHg VBG pO2 66 mmHg VBG HCO3 TNP VBG O2 Saturation 89.3 % VBG Base Excess TNP POC Sodium 129 L (135-144) mmol/L Sodium 134 L (136-145) mmol/L POC Potassium 6.5 H* (3.3-5.0) mmol/L Potassium 6.9 H* (3.5-5.1) mmol/L POC Chloride 98 L (101-112) mmol/L Chloride 86 L (98-107) mmol/L Carbon Dioxide 3 L* (21-32) mmol/L POC Total CO2 6 L* (24-31) mmol/L Anion Gap 45 H (3-11) POC Anion Gap 33.0 H (16-25) mmol/L POC BUN 29 H (7-18) mg/dl BUN 32 H (6-23) mg/dl Creatinine 2.07 H (0.6-1.4) mg/dl POC Creatinine 1.7 H (0.6-1.3) mg/dl Est Cr Clr Drug Dosing 41.3 ml/min Est GFR ( Amer) 45.4 ml/min Est GFR (Non-Af Amer) 39.2 ml/min BUN/Creatinine Ratio 15.5 (10-20) Glucose 1007 H* (70-99(Fasting)) mg/dl POC Glucose > 600 H* (70-99) mg/dl POC Glucose (other) > 700 H* (70-99) mg/dl Estimat Average Glucose 255 mg/dl Hemoglobin A1c 10.5 H (4.5-5.6) % Calcium 8.6 (8.6-10.3) mg/dl POC Ioniz Calcium Zach 1.09 L (1.12-1.32) mmol/l Total Bilirubin 0.3 (0.2-1.0) mg/dl AST 23 (13-39) U/L ALT 15 (7-52) U/L Alkaline Phosphatase 191 H (34-104) U/L Troponin I High Sens 9.6 (0-20) pg/ml Total Protein 7.1 (6.0-8.3) gm/dl Albumin 3.7 (3.4-5.0) gm/dl Globulin 3.4 (2.5-4.0) gm/dl Albumin/Globulin Ratio 1.1 (0.9-2) Lipase 6 L (11-82) U/L Procalcitonin 1.83 H (0-0.5) ng/ml Ethyl Alcohol mg/dL < 10.0 (<10.0) mg/dl Administered Medications Insulin Human Regular 250 (units/ Sodium Chloride) 250 mls @ 10 mls/hr IV .Q24H RISSA; Protocol Stop: 07/30/23 19:29 Last Admin: 06/30/23 19:58 Dose: 10 units/hr, 10 mls/hr Documented By: AEF Co-signed By: NAT Sodium Chloride (1/2 Nss) 1,000 mls @ 200 mls/hr IV .Q5H RISSA Stop: 07/30/23 19:59 Last Admin: 06/30/23 20:41 Dose: 200 mls/hr Documented By: AEF Discontinued Medications Sodium Chloride (Nss) 1,000 mls @ 999 mls/hr IV .Q1H1M STA Stop: 06/30/23 19:28 Last Infusion: 06/30/23 19:28 Dose: Infused Documented By: Admin: 06/30/23 18:45 Dose: 999 mls/hr Documented By: AEF Sodium Chloride (Nss) 1,000 mls @ 999 mls/hr IV .Q1H1M RISSA Stop: 06/30/23 20:45 Last Infusion: 06/30/23 20:26 Dose: Infused Documented By: Admin: 06/30/23 19:18 Dose: 999 mls/hr Documented By: Infusion: 06/30/23 19:18 Dose: Infused Documented By: Admin: 06/30/23 18:46 Dose: 999 mls/hr Documented By: AEF Parenteral Electrolytes (Plasma-Lyte A Ph 7.4) 1,000 mls @ 999 mls/hr IV .Q1H1M ONE Stop: 06/30/23 20:20 Last Admin: 06/30/23 19:28 Dose: 999 mls/hr Documented By: AEF Parenteral Electrolytes (Plasma-Lyte A Ph 7.4) 1,000 mls @ 150 mls/hr IV .Q6H40M RISSA Stop: 07/30/23 19:59 Last Admin: 06/30/23 19:58 Dose: 150 mls/hr Documented By: AEF Calcium Gluconate () 1,000 mg in 60 mls @ 240 mls/hr IV NOW STA Stop: 06/30/23 20:16 Last Admin: 06/30/23 20:40 Dose: 240 mls/hr Documented By: AEF Insulin Human Regular (Novolin-R Bolus From Bag) 6 units IV ONE ONE Stop: 06/30/23 20:01 Last Admin: 06/30/23 20:00 Dose: 6 units Documented By: AEF Co-signed By: NAT Miscellaneous (Stat Iv Infusion Titration Per Protocol) 1 each N/A NOW STA Stop: 06/30/23 19:21 Last Admin: 06/30/23 19:58 Dose: Not Given Documented By: AEF Sodium Bicarbonate (Sodium Bicarb 8.4% Inj 50 Meq/50 Ml Syr) 50 meq IV NOW STA Stop: 06/30/23 20:01 Last Admin: 06/30/23 20:39 Dose: 50 meq Documented By: AEF Imaging Data Radiologist's Impression: Chest X-Ray 06/30/23 18:29 SINGLE VIEW CHEST CLINICAL HISTORY: Generalized weakness. FINDINGS: An AP, portable, upright chest radiograph is compared to study dated 04/26/2023. The cardiomediastinal silhouette is top normal for projection. The lungs and pleural spaces are clear. No pneumothorax is seen. The skeletal structures appear osteopenic. There is chronic deformity of the right proximal humerus. There is partial bony fusion of the right first and second ribs. IMPRESSION: No acute cardiopulmonary abnormality. ACT 112: Negative or not required by law. Electronically signed by: Lex Ivan M.D. 06/30/2023 7:14 PM Discharge Plan Visit Data Chief Complaint: Hyperglycemia ED Provider: Nj James Discharge Problem: DKA (diabetic ketoacidosis), AMS (altered mental status), BERNARD (acute kidney injury), Acute hyperkalemia Patient Disposition: Being Evaluated by Hospitalist Discharge Instructions Interventions: ED Discharge Assessment Last Done: 06/30/23 21:07 Discharge Problem: DKA (diabetic ketoacidosis) Qualifiers: Diabetes mellitus type: type 1 AMS (altered mental status) Qualifiers: Altered mental status type: somnolence Qualified Code(s): R40.0 - Somnolence
[2023-06-30 19:05] LABS: iSTAT Blood Urea Nitrogen 29 mg/dl (7-18); iSTAT Carbon Dioxide 6 mmol/L (24-31); iSTAT Chloride 98 mmol/L (101-112); iSTAT Creatinine 1.7 mg/dl (0.6-1.3); iSTAT Glucose > 700 mg/dl (70-99); iSTAT Hematocrit 41 % (42-52); iSTAT Hemoglobin 13.9 g/dl (14.0-18.0); iSTAT Ionized Calcium 1.09 mmol/l (1.12-1.32); iSTAT Potassium 6.5 mmol/L (3.3-5.0); iSTAT Sodium 129 mmol/L (135-144)
[2023-06-30 19:11] LABS: Oxygen Saturation VBG 89.3 %; PCO2 VBG 25 mmHg (38-50); PO2 VBG 66 mmHg; pH VBG < 7.00 (7.36-7.41)
--- NOTE | 2023-06-30 19:16 | XRay Report ---
SINGLE VIEW CHEST CLINICAL HISTORY: Generalized weakness. FINDINGS: An AP, portable, upright chest radiograph is compared to study dated 04/26/2023. The cardiom ediastinal silhouette is top normal for projection. The lungs and pleural spaces are clear. No pneumo thorax is seen. The skeletal structures appear osteopenic. There is chronic deformity of the right pr oximal humerus. There is partial bony fusion of the right first and second ribs. IMPRESSION: No acute cardiopulmonary abnormality. ACT 112: Negative or not required by law. Electronically signed by: Lex Ivan M.D. 06/30/2023 7:14 PM
[2023-06-30] MEDS ORDERED: CARBOHYDRATES FOR HYPOGLYCEMIA PO PRN (19:20)
[2023-06-30] MEDS ORDERED: GLUCAGON FOR INJ 1 MG VIAL SQ PRN (19:20)
[2023-06-30] MEDS ORDERED: DEXTROSE 50% 50 ML SYRINGE IV PRN (19:20)
[2023-06-30] MEDS ORDERED: GLUCOSE 10 TAB/TUBE PO PRN (19:20)
[2023-06-30] MEDS ORDERED: GLUCOSE 40% GEL 15 GM TUBE PO PRN (19:20)
[2023-06-30] MEDS: PLASMA-LYTE A 1,000 ML IV ONE (19:28)
[2023-06-30 19:31] LABS: Basophils # (auto) 0.05 K/uL (0.00-0.20); Basophils % (auto) 0.2 %; Eosinophils # (auto) 0.06 K/uL (0.00-0.50); Eosinophils % (auto) 0.2 %; Hematocrit (blood only) 42.1 % (42.0-52.0); Hemoglobin 12.5 g/dl (14.0-18.0); Immature Granulocytes # (auto) 1.47 K/uL (0.01-0.20); Immature Granulocytes % (auto) 5.3 %; Lymphocytes # (auto) 1.73 K/uL (1.20-3.40); Lymphocytes % (auto) 6.2 %; Mean Corpuscular Hemoglobin 31.4 pg (25.0-34.0); Mean Corpuscular Hgb Conc 29.7 g/dL (32.0-36.0); Mean Corpuscular Volume 105.8 fL (80.0-100.0); Mean Platelet Volume 9.7 fL (9.4-12.4); Monocytes # (auto) 1.83 K/uL (0.11-0.59); Monocytes % (auto) 6.6 %; Neutrophils # (auto) 22.72 K/uL (1.40-6.50); Neutrophils % (auto) 81.5 %; Platelet Count 431 K/uL (130-400); RDW Coefficient of Variation 13.4 % (11.5-14.5); RDW Standard Deviation 52.9 fL (36.4-46.3); Red Blood Count 3.98 M/uL (4.70-6.10); White Blood Count 27.86 K/ul (4.8-10.8)
[2023-06-30 19:43] LABS: Partial Thromboplastin Ratio 1.1; Partial Thromboplastin Time 32 Seconds (21-31); Prothrombin Time 10.9 Seconds (9.0-12.0)
[2023-06-30 19:57] LABS: Albumin Globulin Ratio 1.1 (0.9-2); Albumin Level 3.7 gm/dl (3.4-5.0); BUN Creatinine Ratio 15.5 (10-20); Bilirubin,Total 0.3 mg/dl (0.2-1.0); Calcium 8.6 mg/dl (8.6-10.3); Creatinine Clr Calc Pharmacy 41.3 ml/min; Est GFR (African American) 45.4 ml/min; Est GFR (Non-African American) 39.2 ml/min; Globulin 3.4 gm/dl (2.5-4.0); Potassium 6.9 mmol/L (3.5-5.1); Total Protein 7.1 gm/dl (6.0-8.3); Troponin I High Sensitivity 9.6 pg/ml (0-20)
[2023-06-30] MEDS: INSULIN REGULAR 250 UNITS in SODIUM CHLORIDE 0.9% 247.5 ML IV SCH (19:58)
[2023-06-30] MEDS: PLASMA-LYTE A 1,000 ML IV SCH (19:58)
[2023-06-30] MEDS: STAT IV Infusion **Titration per Protocol STA (19:58)
[2023-06-30] MEDS: NovoLIN-R BOLUS FROM BAG IV ONE (20:00)
[2023-06-30] MEDS: SODIUM BICARB 8.4% INJ 50 MEQ/50 ML SYR IV STA ×2 (20:39→22:59)
[2023-06-30] MEDS: CALCIUM GLUCONATE 1,000 MG/60 ML BAG IV STA (20:40)
[2023-06-30] MEDS: SODIUM CHLORIDE 0.45 % 1,000 ML IV SCH (20:41)
--- NOTE | 2023-06-30 20:44 | History & Physical Report ---
Date of Service June 30, 2023 Assessment & Plan (1) Acute hyperkalemia: (2) BERNARD (acute kidney injury): (3) DKA (diabetic ketoacidosis): (4) Poorly controlled type 1 diabetes mellitus: (5) Hypotensive episode: (6) Admitted to intensive care unit: Plan DKA/poorly controlled diabetes mellitus type 1- Admit to intensive care unit Venous VBG: pH less than 7.00, pCO2 25, pO2 66 Potassium 6.9, chloride 86, bicarb 3, creatinine 2.07 and glucose 1007 Continue insulin drip begun in the ED In ED patient received a total of 3 L normal saline, and 1 L Plasma-Lyte He is presently on Plasma-Lyte at 150 mL/h Receiving 1 amp of bicarb push Recheck BMP at 9:00 this evening Continue laboratories otherwise every 4 hours per DKA protocol Hyperkalemia/acute kidney injury- Potassium 6.9 and creatinine 2.07 Received calcium gluconate 1 g IV and 1 amp of sodium bicarb drip Received 6 units of regular insulin IV and got started on a insulin drip Recheck BMP as noted 1 hour after receiving initial insulin dosing and IV fluids Hypotension- Secondary to DKA and moderate dehydration Following in the ICU, suspect will need pressors by the time of evening is over Aspiration risk- Appropriate protocols ordered Will likely need empiric aspiration antibiotics Similar presentation to admission from 04/26-04/27/2023 As much as can be done, will need to have counseling regarding prevention of future admissions History of Present Illness Chief Complaint: The patient presents to the emergency department with confusion and disorientation, found by his girlfriend earlier in the day today. Primary Care Provider: Carolyn Story MD The patient is a 37-year-old male with a past medical history including DKA, major depressive disorder, poorly controlled diabetes mellitus type 1, diabetic foot ulcer, diabetic peripheral neuropathy, GERD, tobacco use disorder and B12 deficiency. The patient presents today with nearly the same presentation almaraz bjectively and laboratory abnormality bray as his last admission from 04/26- 04/27/2023. The patient will be mated to the ICU with DKA protocol order set, already begun in the ED this. While in ED, the patient has had some improvement in his mentation, but still is quite confused Allergies Allergy/AdvReac Type Severity Reaction Status Date / Time codeine Allergy Intermediate Rash Verified 06/30/23 20:14 erythromycin base Allergy Unknown HAPPENED Verified 06/30/23 20:14 A SMALL CHILD Home Medications Medication Instructions Recorded Confirmed Type insulin syringe-needle U-100 0.3 #100 ea 07/31/21 06/30/23 Rx mL 31 gauge x 15/64" acetaminophen 500 mg tablet 1,000 mg PO Q8 PRN Pain 08/19/22 06/30/23 History (Tylenol Extra Strength) blood-glucose meter (OneTouch #1 ea 08/22/22 06/30/23 Rx Verio Reflect Meter) ondansetron HCl 4 mg tablet 4 mg PO TID PRN NAUSEA/VOMITING 10/04/22 06/30/23 History albuterol sulfate 90 mcg/actuation 2 puff inhalation Q6H PRN 01/30/23 06/30/23 Rx aerosol inhaler shortness of breath or wheezing #8.5 grams insulin lispro 100 unit/mL 20 unit (0.2 mL) subcut TID #30 mL 01/30/23 06/30/23 Rx subcutaneous pen (Humalog KwikPen (U-100) Insulin) lancets 33 gauge #100 ea 01/30/23 06/30/23 Rx sildenafil 50 mg tablet 50 mg PO DAILY PRN sexual activity 02/02/23 06/30/23 Rx #20 tabs blood sugar diagnostic (OneTouch #100 ea 04/04/23 06/30/23 Rx Verio test strips) gabapentin 100 mg capsule 100 mg PO TID PRN Pain 06/30/23 06/30/23 History insulin glargine 100 unit/mL (3 0 unit subcut DIRECTED 06/30/23 06/30/23 History mL) subcutaneous pen (Lantus Solostar U-100 Insulin) Past Med/Surg History Medical History Fracture of proximal humerus with nonunion Poorly controlled type 1 diabetes mellitus Major depressive disorder, recurrent severe without psychotic features Medical non-compliance Surgical History No significant past surgical history Family History Other Diabetes Social History Smoking Status: Current every day smoker Tobacco Type: Cigarettes Cigarettes Per Day: 1 pack; Second Hand Exposure: No; Do You Dip or Chew Tobacco: No; Hx Alcohol Use: No Hx Substance Use: Yes Prescribed Medications: Marijuana Last Used Substance: Unknown Preferred Language: Amharic Communication Ability: Impaired Visual Impairment: Limited Hearing Ability: Normal 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 current occupational status: disabled How many Children do You have: 0 Feels Safe at Home: Yes Childhood Exposure to Second-Hand Smoke: No Diet: diabetic and regular caffeine: Yes during the past year weight has: remained stable Dental Care, Regularly: Yes Physical Activity Frequency: Daily Seatbelt Use: always Sunscreen Use: No Do you think of yourself as: straight/heterosexual Sexual Activity: has been sexually active within the last 12 months Gender Identity: Male Assistive Devices: Other Review of Systems Review of Systems: Patient is not able to contribute to his HPI or review of systems due to altered mentation Physical Exam Physical Exam: The patient is disoriented and confused, normocephalic and atraumatic, lying in bed, and in no acute distress. HEENT--PERRL, EOMI, mucous membranes and oropharynx dry. Neck--supple. No JVD. No bruits. Thyroid normal, trachea midline, no adenopathy. Heart--normal S1 and S2. No murmurs, rubs or gallops. Lungs--clear bilaterally, no respiratory distress, no accessory muscle use. Abdomen--normal bowel sounds and soft. Nontender. Nondistended, no hernias or masses, no organomegaly. Extremities--No edema. Dermatologic--normal skin turgor, normal color, no abnormal lymph nodes, no rash. Neurologic--cranial nerves II through XII grossly intact. Rheumatologic--limited exam Psychiatric--disoriented and confused Results & Data Results & Data Vital Signs (Past 12 Hours) Vital Signs Temp Pulse Pulse Resp BP BP Pulse Ox 06/30/23 19:20 121 H 18 84/55 L 100 06/30/23 19:00 128 H 20 90/53 L 100 06/30/23 18:35 133 H 20 86/55 L 97 06/30/23 18:31 36.5 C 135 H 18 86/55 L 97 06/30/23 18:30 135 H 06/30/23 18:29 128 H 20 100 O2 Del Method 06/30/23 19:20 Room Air 06/30/23 19:00 Room Air 06/30/23 18:35 Room Air 06/30/23 18:31 Room Air 06/30/23 18:30 06/30/23 18:29 Room Air Laboratory Results Laboratory Results WBC 27.86 K/ul (4.8-10.8) H 06/30/23 18:48 RBC 3.98 M/uL (4.70-6.10) L 06/30/23 18:48 Hgb 12.5 g/dl (14.0-18.0) L 06/30/23 18:48 POC Hgb 13.9 g/dl (14.0-18.0) L 06/30/23 18:52 Hct 42.1 % (42.0-52.0) 06/30/23 18:48 POC Hct 41 % (42-52) L 06/30/23 18:52 MCV 105.8 fL (80.0-100.0) H 06/30/23 18:48 MCH 31.4 pg (25.0-34.0) 06/30/23 18:48 MCHC 29.7 g/dL (32.0-36.0) L 06/30/23 18:48 RDW Std Deviation 52.9 fL (36.4-46.3) H 06/30/23 18:48 RDW Coeff of Margarita 13.4 % (11.5-14.5) 06/30/23 18:48 Plt Count 431 K/uL (130-400) H 06/30/23 18:48 MPV 9.7 fL (9.4-12.4) 06/30/23 18:48 Immature Gran % (Auto) 5.3 % 06/30/23 18:48 Neut % (Auto) 81.5 % 06/30/23 18:48 Lymph % (Auto) 6.2 % 06/30/23 18:48 Barnes % (Auto) 6.6 % 06/30/23 18:48 Eos % (Auto) 0.2 % 06/30/23 18:48 Baso % (Auto) 0.2 % 06/30/23 18:48 Neut # (Auto) 22.72 K/uL (1.40-6.50) H 06/30/23 18:48 Lymph # (Auto) 1.73 K/uL (1.20-3.40) 06/30/23 18:48 Barnes # (Auto) 1.83 K/uL (0.11-0.59) H 06/30/23 18:48 Eos # (Auto) 0.06 K/uL (0.00-0.50) 06/30/23 18:48 Baso # (Auto) 0.05 K/uL (0.00-0.20) 06/30/23 18:48 Immature Gran # (Auto) 1.47 K/uL (0.01-0.20) H 06/30/23 18:48 PT 10.9 Seconds (9.0-12.0) 06/30/23 18:48 INR 1.0 (0.9-1.1) 06/30/23 18:48 APTT 32 Seconds (21-31) H 06/30/23 18:48 PTT Ratio 1.1 06/30/23 18:48 VBG pH < 7.00 (7.36-7.41) L 06/30/23 21:49 VBG pCO2 25 mmHg (38-50) L 06/30/23 18:48 VBG pO2 66 mmHg 06/30/23 18:48 VBG HCO3 TNP 06/30/23 18:48 VBG O2 Saturation 89.3 % 06/30/23 18:48 VBG Base Excess TNP 06/30/23 18:48 POC Sodium 129 mmol/L (135-144) L 06/30/23 18:52 Sodium 134 mmol/L (136-145) L 06/30/23 18:48 POC Potassium 6.5 mmol/L (3.3-5.0) H* 06/30/23 18:52 Potassium 6.9 mmol/L (3.5-5.1) H* 06/30/23 18:48 POC Chloride 98 mmol/L (101-112) L 06/30/23 18:52 Chloride 86 mmol/L (98-107) L 06/30/23 18:48 Carbon Dioxide 3 mmol/L (21-32) L* 06/30/23 18:48 POC Total CO2 6 mmol/L (24-31) L* 06/30/23 18:52 Anion Gap 45 (3-11) H 06/30/23 18:48 POC Anion Gap 33.0 mmol/L (16-25) H 06/30/23 18:52 POC BUN 29 mg/dl (7-18) H 06/30/23 18:52 BUN 32 mg/dl (6-23) H 06/30/23 18:48 Creatinine 2.07 mg/dl (0.6-1.4) H 06/30/23 18:48 POC Creatinine 1.7 mg/dl (0.6-1.3) H 06/30/23 18:52 Est Cr Clr Drug Dosing 41.3 ml/min 06/30/23 18:48 Est GFR ( Amer) 45.4 ml/min 06/30/23 18:48 Est GFR (Non-Af Amer) 39.2 ml/min 06/30/23 18:48 BUN/Creatinine Ratio 15.5 (10-20) 06/30/23 18:48 Glucose 1007 mg/dl (70-99(Fasting)) H* 06/30/23 18:48 POC Glucose > 600 mg/dl (70-99) H* 06/30/23 21:03 POC Glucose (other) > 700 mg/dl (70-99) H* 06/30/23 18:52 Estimat Average Glucose 255 mg/dl 06/30/23 18:48 Hemoglobin A1c 10.5 % (4.5-5.6) H 06/30/23 18:48 Lactate 2.0 mmol/L (0.4-2.0) 06/30/23 21:48 Calcium 8.6 mg/dl (8.6-10.3) 06/30/23 18:48 POC Ioniz Calcium Zach 1.09 mmol/l (1.12-1.32) L 06/30/23 18:52 Total Bilirubin 0.3 mg/dl (0.2-1.0) 06/30/23 18:48 AST 23 U/L (13-39) 06/30/23 18:48 ALT 15 U/L (7-52) 06/30/23 18:48 Alkaline Phosphatase 191 U/L (34-104) H 06/30/23 18:48 Troponin I High Sens 9.6 pg/ml (0-20) 06/30/23 18:48 Total Protein 7.1 gm/dl (6.0-8.3) 06/30/23 18:48 Albumin 3.7 gm/dl (3.4-5.0) 06/30/23 18:48 Globulin 3.4 gm/dl (2.5-4.0) 06/30/23 18:48 Albumin/Globulin Ratio 1.1 (0.9-2) 06/30/23 18:48 Lipase 6 U/L (11-82) L 06/30/23 18:48 Procalcitonin 1.83 ng/ml (0-0.5) H 06/30/23 18:48 Ethyl Alcohol mg/dL < 10.0 mg/dl (<10.0) 06/30/23 18:48 Impressions Chest X-Ray 06/30/23 18:29 SINGLE VIEW CHEST CLINICAL HISTORY: Generalized weakness. FINDINGS: An AP, portable, upright chest radiograph is compared to study dated 04/26/2023. The cardiomediastinal silhouette is top normal for projection. The lungs and pleural spaces are clear. No pneumothorax is seen. The skeletal structures appear osteopenic. There is chronic deformity of the right proximal humerus. There is partial bony fusion of the right first and second ribs. IMPRESSION: No acute cardiopulmonary abnormality. ACT 112: Negative or not required by law. Electronically signed by: Lex Ivan M.D. 06/30/2023 7:14 PM 6 Code Status & VTE Plan Code Status Full code VTE Prophylaxis Plan VTE Prophylaxis will be ordered: Yes PG Care Time/CCT Total # of Minutes Spent Total Time Spent with Patient: Total time spent is greater than 50% in coordination of care (as documented) at patient's floor/unit and/or counseling patient: Coding Level of Care Code 14487 INT INP/OBS CARE 3/75MIN Diagnoses Acute hyperkalemia E87.5 BERNARD (acute kidney injury) N17.9 DKA (diabetic ketoacidosis) E11.10 Diabetes mellitus type: type 1 Poorly controlled type 1 diabetes mellitus E10.65 Hypotensive episode I95.9 Admitted to intensive care unit Z78.9 (3) DKA (diabetic ketoacidosis) Diabetes mellitus type: type 1
[2023-06-30] MEDS: ICU Protocol for HYPERglycemia SCH (21:00)
[2023-06-30] MEDS: INSULIN ASPART PER UNIT CHARGE SC SCH (21:00)
[2023-06-30] MEDS ORDERED: ACETAMINOPHEN 1000 MG/100 ML IV IV PRN (21:08)
[2023-06-30 21:25] LABS: Estimated Average Glucose 255 mg/dl; Hemoglobin A1C 10.5 % (4.5-5.6)
--- NOTE | 2023-06-30 22:06 | Critical Care Consultation ---
Date of Consultation June 30, 2023 Assessment & Plan (1) DKA (diabetic ketoacidosis): Reason Critically Ill: 37-year-old male with history of type 1 diabetes and noncompliance of medication presents to the ICU with DKA and severe metabolic acidosis. Neuro - Encephalopathysecondary to DKA, expect to improve with medical management. See treatment below. Cardiac - Tachycardiacurrently sinus tach on monitor. Hemodynamically stable. No history of cardiac disease. Continue fluid resuscitation. Monitor on telemetry Respiratory - Mild tachypnea likely compensatory to metabolic acidosis. No history of pulmonary disease although patient does have a history of smoking. Currently nonlabored breathing on room air, lungs clear to auscultation. Continuous monitoring on pulse ox GI - N.p.o. for now. Advance to diabetic diet as tolerated GERDPPI RENAL/LYTES - AKIcreatinine elevated at 2.07 with previous baseline of 1 in the setting of DKA. Likely prerenal and expect to improve with rehydration -Every 4 hours BMPs -Continue with fluid resuscitation -Avoid nephrotoxins renally adjust medications Severe metabolic acidosispatient with pH less than 7 due to DKA. Lactic acid within normal limits. Received bicarb x 1. Expect to improve with underlying treatment of DKA - Foleystrict I's and O's ENDO - DKApatient with initial BSG of 1007, HCO3 of 3, positive ketones in urine. Unsure of onset of symptoms as he is currently obtunded, although patient does have history of noncompliance. -Continue insulin drip and fluid resuscitation per DKA protocol -Bicarb for pH less than 7 -Every 4 hours BMPs and VBG's -Expect to improve with medical management HEME - H&H stable, monitor routine CBC ID - Sepsis?Patient with leukocytosis and elevated procalcitonin. He appears to have a nonproductive cough. Afebrile, lactate within normal limits. -Bio fire pending -Nasal MRSA pending -Blood cultures pending -Empiric cefepime for now LINES/IV ACCESS - Peripheral IVs x 2 DVT PROPHYLAXIS - SCDs I have personally spent 45 minutes of critical care time in the direct management of this patient. This is a life/limb threatening event. This includes time spent evaluating patient, direct bedside care, chart review, placing orders, interpretation of diagnostic studies, discussion with consultants, patient, and family members, as well as other required patient management activities. This time is exclusive of all separately billable procedures, and teaching time and separate from and in addition to any other critical care service time. Thank you for allowing us to participate in the care of this patient. Please refer to my attending physician's documentation for any further recommendations. (2) BERNARD (acute kidney injury): (3) AMS (altered mental status): (4) Poorly controlled type 1 diabetes mellitus: (5) GERD (gastroesophageal reflux disease): History of Present Illness Attending Physician: Kenny Aguilar MD History of Present Illness Patient is a 37-year-old male with past medical history significant for DKA, major depressive disorder, noncompliance with medications, neuropathy, GERD, and tobacco abuse who presented to the emergency department after being found down this afternoon by his girlfriend and was noted to be confused. Patient presented to the emergency department and was noted to be obtunded on arrival. Lab work revealed blood glucose 1007, severe metabolic acidosis with HCO3 of 3 and pH less than 7. He was given IV insulin and started on insulin drip, he also received 3 L of crystalloid bolus, and bicarb push. Patient now being admitted to the ICU for further management at this time. Allergies Allergy/AdvReac Type Severity Reaction Status Date / Time codeine Allergy Intermediate Rash Verified 06/30/23 20:14 erythromycin base Allergy Unknown HAPPENED Verified 06/30/23 20:14 A SMALL CHILD Home Medications Medication Instructions Recorded Confirmed Type insulin syringe-needle U-100 0.3 #100 ea 07/31/21 06/30/23 Rx mL 31 gauge x 15/64" acetaminophen 500 mg tablet 1,000 mg PO Q8 PRN Pain 08/19/22 06/30/23 History (Tylenol Extra Strength) blood-glucose meter (OneTouch #1 ea 08/22/22 06/30/23 Rx Verio Reflect Meter) ondansetron HCl 4 mg tablet 4 mg PO TID PRN NAUSEA/VOMITING 10/04/22 06/30/23 History albuterol sulfate 90 mcg/actuation 2 puff inhalation Q6H PRN 01/30/23 06/30/23 Rx aerosol inhaler shortness of breath or wheezing #8.5 grams insulin lispro 100 unit/mL 20 unit (0.2 mL) subcut TID #30 mL 01/30/23 06/30/23 Rx subcutaneous pen (Humalog KwikPen (U-100) Insulin) lancets 33 gauge #100 ea 01/30/23 06/30/23 Rx sildenafil 50 mg tablet 50 mg PO DAILY PRN sexual activity 02/02/23 06/30/23 Rx #20 tabs blood sugar diagnostic (OneTouch #100 ea 04/04/23 06/30/23 Rx Verio test strips) gabapentin 100 mg capsule 100 mg PO TID PRN Pain 06/30/23 06/30/23 History insulin glargine 100 unit/mL (3 0 unit subcut DIRECTED 06/30/23 06/30/23 History mL) subcutaneous pen (Lantus Solostar U-100 Insulin) Patient History Medical History Fracture of proximal humerus with nonunion Poorly controlled type 1 diabetes mellitus Major depressive disorder, recurrent severe without psychotic features Medical non-compliance Surgical History No significant past surgical history Family History Other Diabetes Social History Smoking Status: Current every day smoker Tobacco Type: Cigarettes Cigarettes Per Day: 1 pack; Second Hand Exposure: No; Do You Dip or Chew Tobacco: No; Hx Alcohol Use: No Hx Substance Use: Yes Prescribed Medications: Marijuana Last Used Substance: Unknown Preferred Language: Armenian Communication Ability: Impaired Visual Impairment: Limited Hearing Ability: Normal Trauma Manager Required: No Beliefs That Will Affect Care: None marital status: Single Current Living Situation: Other Current Living Situation Comment: Unable to obtain at this time. current occupational status: disabled How many Children do You have: 0 Feels Safe at Home: Yes Childhood Exposure to Second-Hand Smoke: No Diet: diabetic and regular caffeine: Yes during the past year weight has: remained stable Dental Care, Regularly: Yes Physical Activity Frequency: Daily Seatbelt Use: always Sunscreen Use: No Do you think of yourself as: straight/heterosexual Sexual Activity: has been sexually active within the last 12 months Gender Identity: Male Assistive Devices: Other Review of Systems Review of Systems: Unobtainable due to cognitive status Physical Exam Constitutional: + thin and + altered mental status Eyes: PERRL, conjunctivae normal, anicteric sclerae ENMT: external ear and nose normal, oropharynx normal Neck: trachea midline, no thyromegaly Respiratory: normal respiratory effort, lungs clear to auscultation Cardiovascular: RRR, no murmur, no edema Rate/Rhythm: + tachycardic Heart Sounds: normal S1 and normal S2 Extremities: no edema Gastrointestinal (Abdomen): normal bowel sounds, soft, nontender, no hepatosplenomegaly Musculoskeletal: no cyanosis or clubbing, extremities motor strength 5/5 Skin: no rashes, warm and dry Neurologic: + confused and + obtunded Genitourinary: Dwelling Sarkar present, urine yellow clear Results & Data Results & Data Vital Signs (Past 12 Hours) Vital Signs Temp Pulse Pulse Resp BP BP Pulse Ox 06/30/23 19:20 121 H 18 84/55 L 100 06/30/23 19:00 128 H 20 90/53 L 100 06/30/23 18:35 133 H 20 86/55 L 97 06/30/23 18:31 36.5 C 135 H 18 86/55 L 97 06/30/23 18:30 135 H 06/30/23 18:29 128 H 20 100 O2 Del Method 06/30/23 19:20 Room Air 06/30/23 19:00 Room Air 06/30/23 18:35 Room Air 06/30/23 18:31 Room Air 06/30/23 18:30 06/30/23 18:29 Room Air Coding Level of Care Code 85181 CRITICAL CARE 1ST 30-74M Diagnoses DKA (diabetic ketoacidosis) E11.10 Diabetes mellitus type: type 1 BERNARD (acute kidney injury) N17.9 AMS (altered mental status) R40.0 Altered mental status type: somnolence Poorly controlled type 1 diabetes mellitus E10.65 GERD (gastroesophageal reflux disease) K21.9 (1) DKA (diabetic ketoacidosis) Diabetes mellitus type: type 1 (3) AMS (altered mental status) Altered mental status type: somnolence Qualified Code(s): R40.0 - Somnolence
[2023-06-30] MEDS: CEFEPIME 2,000 MG in SYRINGE 0 ML IV SCH (22:27)
[2023-06-30] MEDS: ENOXAPARIN INJ 40 MG/0.4 ML SYR SQ SCH (22:27)
--- NOTE | 2023-06-30 22:27 | Billing Data ---
Date of Service June 30, 2023 Coding Level of Care Code 64311 CRITICAL CARE
[2023-06-30 22:33] LABS: Appearance Urine Clear (Clear); Bacteria Urine Automated Negative (Negative); Bilirubin Urine Negative (Negative); Blood Urine Trace (Negative); Color Urine Yellow; Glucose Urine UA 3+ (Negative); Ketones Urine 4+ (Negative); Leukocyte Esterase Urine Negative (Negative); Nitrite Urine Negative (Negative); Protein Urine Negative (Negative); RBC Urine Automated 0-4 /hpf (0-4); Specific Gravity Urine 1.022 (1.000-1.030); Urobilinogen Urine Negative (Negative)
[2023-06-30] MEDS: CEFEPIME 2,000 MG/20 ML VIAL IV STA (22:45)
[2023-06-30 23:00] LABS: BUN Creatinine Ratio 18.8 (10-20); Calcium 7.5 mg/dl (8.6-10.3); Creatinine Clr Calc Pharmacy 50.3 ml/min; Est GFR (African American) 57.6 ml/min; Est GFR (Non-African American) 49.7 ml/min; Magnesium 2.6 mg/dl (1.7-2.4); Phosphorus 8.7 mg/dl (2.5-4.9); Potassium 4.7 mmol/L (3.5-5.1)
[2023-06-30 23:12] LABS: Adenovirus PCR Not Detected (NotDetected); Bordetella parapertussis PCR Not Detected (NotDetected); Bordetella pertussis PCR Not Detected (NotDetected); Chlamydia pneumoniae PCR Not Detected (NotDetected); Coronavirus 229E PCR Not Detected (NotDetected); Coronavirus CoV-2 (COVID19)PCR Not Detected (NotDetected); Coronavirus HKU1 PCR Not Detected (NotDetected); Coronavirus NL63 PCR Not Detected (NotDetected); Coronavirus OC43PCR Not Detected (NotDetected); Human Metapneumovirus PCR Not Detected (NotDetected); Influenza A (H3) PCR DETECTED (NotDetected); Influenza B PCR Not Detected (NotDetected); Mycoplasma pneumoniae PCR Not Detected (NotDetected); Parainfluenza Virus 1 PCR Not Detected (NotDetected); Parainfluenza Virus 2 PCR Not Detected (NotDetected); Parainfluenza Virus 3 PCR Not Detected (NotDetected); Parainfluenza Virus 4 PCR Not Detected (NotDetected); Respiratory Syncytial VirusPCR Not Detected (NotDetected); Rhinovirus/Enterovirus PCR Not Detected (NotDetected)
[2023-06-30 23:14] LABS: Amphetamines+Metham, Urine Neg (Neg); Barbiturates, Urine Neg (Neg); Benzodiazepine, Urine Neg (Neg); Cocaine, Urine Neg (Neg); MDMA (Ecstacy), Urine Neg (Neg); Marijuana, Urine Neg (Neg); Methadone, Urine Neg (Neg); Opiate, Urine Neg (Neg); Phencyclidine, Urine Neg (Neg)
[2023-07-01] MEDS ORDERED: PENDING 1/2NSS+40mEq KCL IVF SCH (00:15)
[2023-07-01] MEDS: POTASSIUM CHLORIDE 40 MEQ in SODIUM CHLORIDE 0.45 % 1,000 ML IV SCH (00:52)
[2023-07-01] MEDS: SODIUM CHLORIDE 0.9% 1,000 ML IV SCH (00:58)
[2023-07-01] MEDS ORDERED: Nursing to Pharmacy Communication SCH (02:15)
[2023-07-01] MEDS: D5W AND 1/2NSS + 20MEQ KCL 20 MEQ/1,000 ML BAG IV SCH (02:37)
[2023-07-01] MEDS: PENDING D5 1/2NS+20mEq KCL IVF SCH (02:39)
[2023-07-01 03:21] LABS: Calcium 7.9 mg/dl (8.6-10.3); Est GFR (African American) 74.1 ml/min; Est GFR (Non-African American) 63.9 ml/min; Magnesium 2.4 mg/dl (1.7-2.4); Phosphorus 1.7 mg/dl (2.5-4.9); Potassium 4.4 mmol/L (3.5-5.1)
[2023-07-01] MEDS: ONDANSETRON INJ 2 MG/ML 2 ML VIAL IV PRN (07:32)
[2023-07-01 08:29] LABS: BUN Creatinine Ratio 18.9 (10-20); Calcium 7.7 mg/dl (8.6-10.3); Creatinine Clr Calc Pharmacy 78.7 ml/min; Est GFR (African American) 96.4 ml/min; Est GFR (Non-African American) 83.2 ml/min; Magnesium 2.1 mg/dl (1.7-2.4); Phosphorus 1.6 mg/dl (2.5-4.9); Potassium 3.9 mmol/L (3.5-5.1)
--- NOTE | 2023-07-01 08:56 | Electrocardiogram Report ---
Test Reason : Blood Pressure : / mmHG Vent. Rate : 134 BPM Atrial Rate : 134 BPM P-R Int : 134 ms QRS Dur : 092 ms QT Int : 302 ms P-R-T Axes : 070 076 -18 degrees QTc Int : 450 ms Sinus tachycardia Nonspecific T wave abnormality Inferior leads Abnormal ECG When compared with ECG of 27-APR-2023 09:43, Inverted T waves have replaced nonspecific T wave abnormality in Inferior leads Nonspecific T wave abnormality, improved in Lateral leads Confirmed by Bill Simons ([id number]) on 07/01/2023 8:55:37 AM Referred By: REFERRED SELF Confirmed By:Bill Simons
--- OUTSIDE RECORDS SUMMARY | 2023-07-01 10:36 | External Medical Summary | Summary of Care ---
Author Name Unknown Organization [facility] Address [address] [place] [address] Phone [phone] Care Team Providers Care Freight Separator Name Role Phone Carolyn Story MD Primary Care Provider [phone] Reason for Referral * Precert (Within 10 days (routine)) - Pending Review Specialty Diagnoses / Procedures Referred By Contac t Referred To Contact Radiology Diagnoses Shoulder injury, right, initial encounter Procedures MRI SHOULDER RIGHT WO CONTRAST Rajinder Hardy MD [address] [place] [address] Referral ID Status Reason Start Date Expiration Date V isits Requested Visits Authorized [id number] Pending Review 06/16/2023 999 999 Reason for Visit * Reason Comments NEW PATIENT Right shoulder Encounter Details Date Type Department Care Team (Late st Contact Info) Description 06/16/2023 1:30 PM EST Office Visit Orthopaedics [facility] [address] [place] [address] Rajinder Hardy MD [address] [place] [address] Shoulder injury, right, initial encounter* Allergies Active Allergy Reactions Criticality Noted Date Comments Erythromycin 03/07/2023 documented as of this encounter (statuses as of 06/16/2023) Medications No known medicationsdocumented as of this encounter (statuses as of 06/16/2023) Active Problems No known active problems documented as of this encounter (statuses as of 06/16/2023) Social History Tobacco Use Types Packs/Day Years Used Date Smoking Tobacco: Every Day Cigarettes Smokeless Tobacco: Former Alcohol Use Standard Drinks/Week [...] as of this encounter Progress Notes * Rajinder Hardy MD - 06/16/2023 1:35 PM EST Laron Horton [id number] Laron Horton is a 37 year old male who presents for consultation to [facility] for right shoulder injury/pain. Consult requested by Carolyn Story MD. Laron Horton is here unaccompanied History: Level of pain: reviewed and agree with Nursing Notes for HPI elements History - presents today for right shoulder injury, 7-8 months ago. States he fell in the shower. Has not gone to PT, has been using weights. Right hand dominate and is on SSI. Patient was initially seen within our system in [place] by Dr. Easton on 03/07/2023. Plan was instructed to attend physical therapy. He was then to follow up with 1 of our nonsurgical Sports Medicine doctors in our area rather than [place]. She was to follow-up in 2 months. However he cancel that visit and therefore it is been nearly 4 months since he was seen. Endorses pain and poor motion ROS: ROS per HPI otherwise non-contributory Social History Socioeconomic History Marital status: Single Spouse name: Not on file Number of children: Not on file Years of education: Not on file Highest education level: Not on file Occupational History Not on file Tobacco Use Smoking status: Every Day Current packs/day: 1.00 Types: Cigarettes Smokeless tobacco: Former Vaping Use Vaping Use: Never used Substance and Sexual Activity Alcohol use: Not Currently Drug use: Yes Types: Marijuana Sexual activity: Not on file Other Topics Concern Not on file Social History Narrative Not on file Social Determinants of Health Financial Resource Strain: Not on file Food Insecurity: Not on file Transportation Needs: Not on file Physical Activity: Not on file Stress: Not on file Social Connections: Not on file Intimate Partner Violence: Not on file Housing Stability: Not on file Physical Exam Constitutional: Generally well-nourished and in no acute distress Psychiatric: Mood and Affect normal Eyes: EOMI Respiratory: Normal respiratory effort with regular rate and rhythm Tender palpate diffusely around the shoulder No warmth, no erythema Range of motion is extremely limited approximately 20 of forward flexion 20 of abduction unableto reach behind himself with internal rotation Radiology (I have personally reviewed the following films): 06/16/2023: Four view x-ray of the right shoulder mpacted subacute appearing right humeral head and neck fracture. Partial healing. Concern for nonunion - per my interpretation. Awaiting formal radiology interpretation. 03/07/2023: Two-view x-ray of the right shoulder FINDINGS: Bones/joints: Moderately impacted subacute appearing right humeral head and neck fracture. Partial healing. Mild inferior subluxation of the humerus from the glenoid. No gunjan dislocation Soft tissues: Normal. IMPRESSION IMPRESSION: 1. Moderately impacted subacute appearing right humeral head and neck fracture. Partial healing. 2. Mild inferior subluxation of the humerus from the glenoid. Favor this is due to joint fluid Assessment and Plan: 1) right shoulder injury Patient's initial injury was in September of 2022 (approximately 9 months ago) impacted subacute appearing right humeral head and neck fracture. Patient has extremely poor range of motion. Have some concern for nonunion Recommended MRI in office follow-up with myself after that MRI Rajinder Hardy MD Primary Care Sports Medicine Orthopaedics [address] [address] documented in this encounter Nursing Notes * Yomaira Rogers MED ASSIST - 06/16/2023 1:24 PM EST Patient presents today for right shoulder injury, 7-8 months ago. States he fell in the shower. Hasnot gone to PT, has been using weights. Right hand dominate and is on SSI. documented in this encounter Plan of Treatment Upcoming Encounters Date Type Department Care Team (Late st Contact Info) Description 06/29/2023 4:15 PM EDT Imaging Radiology [address] [facility] [place] [address] 07/03/2023 2:00 PM EDT Office Visit Orthopaedics [facility] [address] [facility] [place] [address] Rajinder Hardy MD [address] [place] [address] Pending Results Name Type Priority Associated Diagnoses Date /Time XR SHOULDER, 2 OR MORE VIEWS Medical Imaging Routine Shoulder injury, right, initial encounter 06/16/2023 1:50 PM EST Scheduled Orders Name Type Priority Associated Diagnoses Orde r Schedule MRI SHOULDER RIGHT WO CONTRAST Medical Imaging Routine Shoulder injury, right, initial encounter Expected: 06/16/2023, Expires: 07/16/2024 Health Maintenance Due Date Last Done Comments Pneumococcal Vaccine: Pediatrics (0 to 5 Years) and At-Risk Patients (6 to 64 Years) (1 of 2 - PCV) 07/06/1989 Depression Screening 1995 HIV Screening 07/06/1998 Hepatitis C Screening 07/06/2001 DTaP,Tdap,and Td Vaccines (1 - Tdap) 07/06/2002 Hepatitis B (1 of 3 - 19+ 3-dose series) 07/06/2002 COVID-19 Vaccine ( - 2022-2 4 season) 2022 Influenza Vaccine (FLU shot) (#1) 2022 01/04/2022, 01/04/2022, 01/15/2021 GARDASIL-HPV IMMUNIZATION SERIES Aged Out No longer eligible b ased on patient's age to complete this topic MENINGOCOCCAL (MENACTRA/MENVEO) Aged Out No longer eligible b ased on patient's age to complete this topic documented as of this encounter Medical Devices Not on filedocumented as of this encounter Visit Diagnoses Diagnosis Shoulder injury, right, initial encounter- Primary documented in this encounter Care Teams Freight Separator Relationship Specialty Start Date End Date Carolyn Story MD [address] [place], [place] [address] [phone] PCP - General Family Medicine 01/16/23 documented as of this encounter
--- OUTSIDE RECORDS SUMMARY | 2023-07-01 10:36 | External Medical Summary | Summary of Care ---
Author Name Unknown Organization [facility] Address [address] [place] [address] Phone [phone] Care Team Providers Care Die Inspector Name Role Phone Carolyn Story MD Primary Care Provider [phone] Reason for Visit * Reason Onset Date Comments [facility]: Screening 06/21/2023 Encounter Details Date Type Department Care Team ([facility] st Contact Info) Description 06/21/2023 Telephone [facility], [facility] [address] [facility] [place] [address] [facility], Nurse [facility] [address] [place] [address] [facility]: Screening Allergies Active Allergy Reactions Criticality Noted Date Comments Erythromycin 03/07/2023 documented as of this encounter (statuses as of 06/21/2023) Medications No known medicationsdocumented as of this encounter (statuses as of 06/21/2023) Active Problems No known active problems documented as of this encounter (statuses as of 06/21/2023) Social History Tobacco Use Types Packs/Day Years [...] encounter Miscellaneous Notes * Telephone Encounter - Fina Adam LPN - 06/21/2023 5:28 PM EDT Laron Horton was referred as a potential candidate for enrollment for [facility]. A review of this chart was completed and: Laron does not meet criteria for enrollment into [facility]. Referral Source: [facility] Daily Referral List Criteria for Ineligibility: Not Located in Service Area Referring care team was notified via : [employer] communication Pt is located in the [facility] service area but does not have the multiple complex medical dx required for enrollment. documented in this encounter Plan of Treatment Upcoming Encounters Date Type Department Care Team (Late st Contact Info) Description 06/29/2023 4:15 PM EDT Imaging Radiology [address] [place] [address] 07/03/2023 2:00 PM EDT Office Visit Orthopaedics [facility] [address] [place] [address] Rajinder Hardy MD [address] [place] [address] Health Maintenance Due Date Last Done Comments [...] filedocumented as of this encounter Care Teams Die Inspector Relationship Specialty Start Date End Date Carolyn Story MD [address] [place] [address] [place] [address] PCP - General Family Medicine 01/16/23 documented as of this encounter
--- OUTSIDE RECORDS SUMMARY | 2023-07-01 10:36 | External Medical Summary | Summary of Care ---
Author Name Unknown Organization [facility] Address [address] [place] [address] Phone [phone] Care Team Providers Care Railroad Dining Car Steward/Stewardess Name Role Phone Carolyn Story MD Primary Care Provider [phone] Reason for Visit * Reason Onset Date Comments Diabetes Management 05/22/2023 TRIAGE 05/22/2023 Encounter Details Date Type Department Care Team (Late st Contact Info) Description 05/22/2023 Telephone Pharmacy Call Center [address] [place] [address] [facility] [address] [place] [address] Diabetes Management; TRIAGE Allergies Active Allergy Reactions Criticality Noted Date Comments Erythromycin 03/07/2023 documented as of this encounter (statuses as of 05/22/2023) Medications No known medicationsdocumented as of this encounter (statuses as of 05/22/2023) Active Problems No known active problems documented as of this encounter (statuses as of 05/22/2023) Social History Tobacco Use Types Packs/Day Years [...] encounter Miscellaneous Notes * Telephone Encounter - Danielle Lubin, [facility] - 05/22/2023 9:51 AM EST [facility] THIS NOTE SERVES FOR TRIAGING PURPOSES ONLY AND IS NOT A PATIENT CONTACT. PATIENT MAY BE CONTACTED FOLLOWING MY ASSESSMENT. Patient was identified to be a candidate for the Non-CE telephonic program based on the following criteria: Pharmacy AND/OR Medical High Cost / No A1c result / PDC >=80% Patient managed by [facility] provider? No; Pertinent Diabetes Info in Care Everywhere Yes Last A1C: 10.7% (Result Date: 11/26/22) Diabetes Diagnosis: Type 2 After chart review the following opportunities were identified: Mail Order Invite ( Call and invite), Endo Referral ( Recommend Patient Establish (New to [facility] Endo) ), Obtain Updated A1c, and TherapyOptimization (PRN) Action to be taken by automotive repair technician: Please contact and warm transfer to [facility] if patient is agreeable Needs Language Line: No Danielle Lubin [facility] Clinical Pharmacist 05/22/2023, 9:51 AM documented in this encounter Plan of Treatment [...] 07/06/2002 Influenza Vaccine (FLU shot) (#1) 2022 022 GARDASIL-HPV IMMUNIZATION SERIES Aged Out No longer eligible based on patient's age to complete this topic MENINGOCOCCAL (MENACTRA/MENVEO) Aged Out No longer eligible based on patient's age to complete this topic documented as of this encounter Medical Devices Not on filedocumented as of this encounter Care Teams Railroad Dining Car Steward/Stewardess Relationship Specialty Start Date End Date Carolyn Story MD [address] [place] [phone] PCP - General Family Medicine 01/16/23 documented as of this encounter
--- OUTSIDE RECORDS SUMMARY | 2023-07-01 10:36 | External Medical Summary | Summary of Care ---
Author Name Unknown Organization [facility] Address [address] [place] [address] Phone [phone] Care Team Providers Care Ad Writer Name Role Phone Carolyn Story MD Primary Care Provider Reason for Visit * Reason Onset Date Comments Diabetes Management 05/22/2023 TRIAGE 05/22/2023 Encounter Details Date Type Department Care Team (Late st Contact Info) Description 05/22/2023 Telephone Pharmacy Call Center [address] [place] [address] [facility] [address] [place] [address] Diabetes Management; TRIAGE Allergies Active Allergy Reactions Criticality Noted Date Comments Erythromycin 03/07/2023 documented as of this encounter (statuses as of 05/23/2023) Medications No known medicationsdocumented as of this encounter (statuses as of 05/23/2023) Active Problems No known active problems documented as of this encounter (statuses as of 05/23/2023) Social History Tobacco Use Types Packs/Day Years [...] Notes * Telephone Encounter - Danielle Lubin, [facility] - 05/22/2023 9:51 AM EST [facility] Non-Clinical [place] Diabetes [facility] THIS NOTE SERVES FOR TRIAGING PURPOSES ONLY AND IS NOT A PATIENT CONTACT. PATIENT MAY BE CONTACTED FOLLOWING MY ASSESSMENT. Patient was identified to be a candidate for the Non-CE telephonic program based on the following criteria: Pharmacy AND/OR Medical High Cost / No A1c result / PDC >=80% Patient managed by [facility] provider? No; Pertinent Diabetes Info in Care Everywhere Yes Last A1C: 10.7% (Result Date: 11/26/22) Diabetes Diagnosis: Type 2 After chart review the following opportunities were identified: Mail Order Invite ( Call and invite), Endo Referral ( Recommend Patient Establish (New to [facility] Endo) ), Obtain Updated A1c, and TherapyOptimization (PRN) Action to be taken by orthophotography technician: Please contact and warm transfer to [facility] if patient is agreeable Needs Language Line: No Danielle Lubin [facility] Clinical Pharmacist 05/22/2023, 9:51 AM documented in this encounter Plan of Treatment Upcoming Encounters Date Type Department Care Team (Late st Contact Info) Description 06/16/2023 1:30 PM EST Office Visit Orthopaedics [facility] [address] [place] [address] Rajinder Hardy MD [address] [place] [address] Health Maintenance Due Date Last Done Comments [...] filedocumented as of this encounter Care Teams Ad Writer Relationship Specialty Start Date End Date Carolyn Story MD [address] [place], [place] [address] [id number] PCP - General Family Medicine 01/16/23 documented as of this encounter
--- OUTSIDE RECORDS SUMMARY | 2023-07-01 10:36 | External Medical Summary | Summary of Care ---
Author Name Unknown Organization [facility] Address [address] [place] [address] Phone [phone] Care Team Providers Care Project Manager Entertainment And Media Name Role Phone Carolyn Story MD Primary Care Provider [phone] Encounter Details Date Type Department Care Team (Late Contact Info) Description 06/21/2023 Population Health External Data Unspecified Department Allergies Active Allergy Reactions Criticality Noted Date [...] Encounters Date Type Department Care Team (Late Contact Info) Description 06/29/2023 4:15 PM EDT Imaging Radiology [facility] 1st [facility], Daniel [address] [facility] [place] [address] 07/03/2023 2:00 PM EDT Office Visit Orthopaedics [address] [place] [address] Rajinder Hardy MD [address] [place] [address] Health Maintenance Due Date Last Done Comments [...] filedocumented as of this encounter Care Teams Project Manager Entertainment And Media Relationship Specialty Start Date End Date Carolyn Story MD [address] [place] [address] [place] [address] PCP - General Family Medicine 01/16/23 documented as of this encounter
[2023-07-01] MEDS ORDERED: SODIUM PHOSPHATE 3 MMOL/1 ML INFUSION IV STA (10:53)
[2023-07-01] MEDS ORDERED: SODIUM PHOSPHATE 15 MMOL in SODIUM CHLORIDE 0.9% 250 ML IV ONE (11:30)
--- NOTE | 2023-07-01 11:32 | Pharmacy Report ---
Pharmacy Glycemic Short Note 2 - Date of Service July 01, 2023 - Glycemic Short BSG Results (Last 24 hours): 06/30/23 06/30/23 06/30/23 18:30 18:48 18:52 Glucose 1007 H* POC Glucose > 600 H* POC Glucose (other) > 700 H* 06/30/23 06/30/23 06/30/23 21:03 21:48 23:47 Glucose 685 H* POC Glucose > 600 H* 432 H* POC Glucose (other) 07/01/23 07/01/23 07/01/23 00:56 02:00 02:42 Glucose 247 H POC Glucose 322 H* 226 H POC Glucose (other) 07/01/23 07/01/23 07/01/23 03:00 03:59 06:02 Glucose POC Glucose 241 H 234 H 209 H POC Glucose (other) 07/01/23 07/01/23 07/01/23 07:54 08:30 09:30 Glucose 194 H POC Glucose 181 H 200 H POC Glucose (other) 07/01/23 10:42 Glucose POC Glucose 222 H POC Glucose (other) OUTPATIENT ANTIDIABETIC REGIMEN: * Outpatient prescription Lantus 40 units BID + Humalog 20 units TIDM- however usually requires significantly less in hospital * A1c 10.5% 06/30/23 ASSESSMENT: * Patient is a 37 year old male with history of DM1 admitted in DKA. Initial labs: pH-<7.0, AG-45, bicarb-3, BSG-1007. Initiated on insulin drip per DKA protocol. Pharmacy consulted to assist with glycemic management/drip transition. * Patient trended downward overnight, Bicarb/gap improved. * Will begin Lantus now (Bicarb 23, anion gap 10) and overlap with insulin drip, currently running at 3.7units/hr * Note: patient has hx of leaving AMA * D5+1/2NS+20 meq of KCL @ 200cc/hr - discontinuing with insulin drip DC * Patient known to glycemic service - typically receives ~15-20 units/day of basal insulin while admitted. * Initiated NovoLog orders similar to weight based stress of 2. PLAN FOR INPATIENT GLYCEMIC CONTROL: * IV insulin infusion for DKA Protocol, running at 3.7units/hr - DC 3 hour after Lantus given * goal range 110-180mg/dl * Basal insulin * Lantus 25 units QAM start now and overlap with drip x3 hours * Bolus insulin * NovoLog per scale ACHS or Q6hrs while NPO * Goal Range: Low 110 mg/dL - High 160 mg/dL * Correction Factor: 35 mg/dL/unit * Nutritional / Prandial insulin per carb ratio of 1 unit per 12 grams CHO consumed \
[2023-07-01] MEDS ORDERED: PHARMACY GLYCEMIC MGMT CONSULT PRN (11:38)
[2023-07-01] MEDS: LANTUS PER UNIT CHARGE SC ONE (11:56)
[2023-07-01] MEDS: CEFEPIME 2,000 MG in SYRINGE 0 ML IV SCH (11:56)
--- NOTE | 2023-07-01 12:22 | Critical Care Progress Note ---
Date of Service July 01, 2023 Assessment & Plan (1) DKA (diabetic ketoacidosis): Plan: Reason Critically Ill: 37-year-old male with history of type 1 diabetes and noncompliance of medication presents to the ICU with DKA and severe metabolic acidosis. Neuro - Encephalopathy: Resolved patient has similar longstanding history is a presentation in DKA. Routinely signed out AGAINST MEDICAL ADVICE, patient has already requested staff to allow him to leave. After removal of his Sarkar catheter he reported he desired to stay a little bit longer and sleep as it was 9:00 in the morning Cardiac - Tachycardia: Improving Respiratory - Tachypnea resolved GI - Requesting drinks GERDPPI RENAL/LYTES - AKIsignificant improvement in acute kidney injury: Creatinine within normal limits Metabolic acidosis gap closed - Foleydiscontinue ENDO - DKAresolved Poorly controlled diabetes mellitus type 1: History documents several episodes of similar presentation and poor compliance with insulin regimens -I believe the influenza A H3 positivity contributes to his episode of DKA at this time HEME - H&H stable, monitor routine CBC ID - Continue empiric antibiotics at this time, I suspect that this is related to influenza A. Prior episodes patient has developed ketoacidosis in the setting of nausea and vomiting. He is not profoundly hypoxic, does not have an oxygen requirement given these reassuring signs in the setting of influenza A infection I do not feel compelled to start Tamiflu as I feel the risks of nausea and vomiting associated from the medication outweigh the benefits given the minimal respiratory system effects at this time Of note and the patient's microbiological history there was a single anaerobic blood culture drawn on May 01 which resulted on May 08 which was identified as Davealia (Actinomyces) catinai. There are 2 documented attempts at transitional care management tempting to contact the patient on April 28 as well as May 01, 2023 both of which were unsuccessful. -I am operating with the presumption that this was considered a contaminant. Subsequent to that event in April the patient has blood cultures which have been obtained. I am not seeing overt signs of bacteremia. I feel the patient's acute infectious issues are related to the influenza as noted above, he has blood cultures pending, I do not feel a need to order a second set as the patien t is on empiric antibiotics which will decrease diagnostic yield. LINES/IV ACCESS - Peripheral IVs x 2 DVT PROPHYLAXIS - SCDs Patient is stable for downgrade out of ICU. (2) BERNARD (acute kidney injury): (3) AMS (altered mental status): (4) Poorly controlled type 1 diabetes mellitus: (5) GERD (gastroesophageal reflux disease): Admission and Anticipated Discharge Date Admission Date: June 30, 2023 Physical Exam Physical Exam: General: Alert. nontoxic. Skin: Warm, dry, Head: Atraumatic Ears, nose, mouth and throat: airway patent Cardiovascular: Normal peripheral perfusion Respiratory: no respiratory distress Gastrointestinal: Non distended Musculoskeletal: No deformity Results & Data Results & Data Vital Signs (Past 12 Hours) Vital Signs Temp Pulse Resp BP Pulse Ox 07/01/23 08:00 37.1 C 133 H 15 91 07/01/23 08:00 127/67 07/01/23 07:30 130/75 07/01/23 07:30 37.2 C 132 H 23 91 07/01/23 07:00 37.2 C 123 H 22 93 07/01/23 07:00 116/64 07/01/23 06:30 37.1 C 125 H 20 93 07/01/23 06:30 131/71 07/01/23 06:00 37.1 C 124 H 22 95 07/01/23 06:00 125/78 07/01/23 05:30 37.0 C 129 H 27 H 93 07/01/23 05:30 142/78 H 07/01/23 05:00 118/68 07/01/23 05:00 36.9 C 116 H 22 95 07/01/23 04:30 37.0 C 117 H 25 H 95 07/01/23 04:30 124/73 07/01/23 04:14 119/70 07/01/23 04:00 36.9 C 119 H 23 95 07/01/23 03:30 36.9 C 121 H 23 95 07/01/23 03:30 123/72 07/01/23 03:00 36.7 C 124 H 22 96 07/01/23 03:00 107/58 L 07/01/23 02:30 100/54 L 07/01/23 02:30 36.5 C 121 H 25 H 98 07/01/23 02:00 36.4 C L 116 H 22 97 07/01/23 02:00 110/62 07/01/23 01:30 36.3 C L 114 H 24 96 07/01/23 01:30 93/59 L 07/01/23 01:00 36.1 C L 121 H 27 H 96 07/01/23 01:00 105/61 Critical Care Results & Data Vital Signs (Past 12 Hours) Vital Signs Temp Pulse Resp BP Pulse Ox 07/01/23 08:00 37.1 C 133 H 15 91 07/01/23 08:00 127/67 07/01/23 07:30 130/75 07/01/23 07:30 37.2 C 132 H 23 91 07/01/23 07:00 37.2 C 123 H 22 93 07/01/23 07:00 116/64 07/01/23 06:30 37.1 C 125 H 20 93 07/01/23 06:30 131/71 07/01/23 06:00 37.1 C 124 H 22 95 07/01/23 06:00 125/78 07/01/23 05:30 37.0 C 129 H 27 H 93 07/01/23 05:30 142/78 H 07/01/23 05:00 118/68 07/01/23 05:00 36.9 C 116 H 22 95 07/01/23 04:30 37.0 C 117 H 25 H 95 07/01/23 04:30 124/73 07/01/23 04:14 119/70 07/01/23 04:00 36.9 C 119 H 23 95 07/01/23 03:30 36.9 C 121 H 23 95 07/01/23 03:30 123/72 07/01/23 03:00 36.7 C 124 H 22 96 07/01/23 03:00 107/58 L 07/01/23 02:30 100/54 L 07/01/23 02:30 36.5 C 121 H 25 H 98 07/01/23 02:00 36.4 C L 116 H 22 97 07/01/23 02:00 110/62 07/01/23 01:30 36.3 C L 114 H 24 96 07/01/23 01:30 93/59 L 07/01/23 01:00 36.1 C L 121 H 27 H 96 07/01/23 01:00 105/61 Lab & Micro Results (Past 24 Hours) RBC 3.98 M/uL (4.70-6.10) L 06/30/23 WBC 27.86 K/ul (4.8-10.8) H 06/30/23 Hgb 12.5 g/dl (14.0-18.0) L 06/30/23 Hct 42.1 % (42.0-52.0) 06/30/23 MCV 105.8 fL (80.0-100.0) H 06/30/23 MCH 31.4 pg (25.0-34.0) 06/30/23 MCHC 29.7 g/dL (32.0-36.0) L 06/30/23 RDW Standard Deviation 52.9 fL (36.4-46.3) H 06/30/23 RDW Coefficient of Variation 13.4 % (11.5-14.5) 06/30/23 Plt Count 431 K/uL (130-400) H 06/30/23 MPV 9.7 fL (9.4-12.4) 06/30/23 Neutrophils (%) (Auto) 81.5 % 06/30/23 Lymphocytes (%) (Auto) 6.2 % 06/30/23 Monocytes # (Auto) 1.83 K/uL (0.11-0.59) H 06/30/23 Eosinophils # (Auto) 0.06 K/uL (0.00-0.50) 06/30/23 Immature Granulocyte % (Auto) 5.3 % 06/30/23 Neutrophils # (Auto) 22.72 K/uL (1.40-6.50) H 06/30/23 Lymphocytes # (Auto) 1.73 K/uL (1.20-3.40) 06/30/23 Monocytes # (Auto) 1.83 K/uL (0.11-0.59) H 06/30/23 Eosinophils # (Auto) 0.06 K/uL (0.00-0.50) 06/30/23 Basophils # (Auto) 0.05 K/uL (0.00-0.20) 06/30/23 Immature Granulocyte # (Auto) 1.47 K/uL (0.01-0.20) H 06/29 Na 148 mmol/L (136-145) H 07/01/23 K 3.9 mmol/L (3.5-5.1) 07/01/23 Cl 115 mmol/L (98-107) H 07/01/23 CO2 23 mmol/L (21-32) 07/01/23 Anion Gap 10 (3-11) 07/01/23 BUN 21 mg/dl (6-23) 07/01/23 Creatinine 1.11 mg/dl (0.6-1.4) 07/01/23 Estimated GFR ( Amer) 96.4 ml/min 07/01/23 Estimated GFR (Non-Af Amer) 83.2 ml/min 07/01/23 BUN/Creatinine Ratio 18.9 (10-20) 07/01/23 Glu 194 mg/dl (70-99(Fasting)) H 07/01/23 Ca 7.7 mg/dl (8.6-10.3) L 07/01/23 Phosphorus Level 1.6 mg/dl (2.5-4.9) L 07/01/23 Total Bilirubin 0.3 mg/dl (0.2-1.0) 06/30/23 AST 23 U/L (13-39) 06/30/23 ALT 15 U/L (7-52) 06/30/23 Alkaline Phosphatase 191 U/L (34-104) H 06/30/23 TP 7.1 gm/dl (6.0-8.3) 06/30/23 Albumin 3.7 gm/dl (3.4-5.0) 06/30/23 Globulin 3.4 gm/dl (2.5-4.0) 06/30/23 Albumin/Globulin Ratio 1.1 (0.9-2) 06/30/23 Mg 2.1 mg/dl (1.7-2.4) 07/01/23 07:54 Calcium Level 7.7 mg/dl (8.6-10.3) L 07/01/23 07:54 Prothromb Time International Ratio 1.0 (0.9-1.1) 06/30/23 18:4 8 Venous Blood pH 7.35 (7.36-7.41) L 07/01/23 12:16 Venous Blood Partial Pressure CO2 25 mmHg (38-50) L 06/30/23 18 :48 Venous Blood Partial Pressure O2 66 mmHg 06/30/23 18:48 Venous Blood HCO3 TNP 06/30/23 18:48 Venous Blood Base Excess TNP 06/30/23 18:48 Venous Blood Oxygen Saturation 89.3 % 06/30/23 18:48 Diagnostic Findings (Past 24 Hours) Chest X-Ray 06/30/23 18:29 SINGLE VIEW CHEST CLINICAL HISTORY: Generalized weakness. FINDINGS: An AP, portable, upright chest radiograph is compared to study dated 04/26/2023. The cardiomediastinal silhouette is top normal for projection. The lungs and pleural spaces are clear. No pneumothorax is seen. The skeletal structures appear osteopenic. There is chronic deformity of the right proximal humerus. There is partial bony fusion of the right first and second ribs. IMPRESSION: No acute cardiopulmonary abnormality. ACT 112: Negative or not required by law. Electronically signed by: Lex Ivan M.D. 06/30/2023 7:14 PM I & O Totals 24 Hours 06/30/23 07/01/23 07/02/23 06:59 06:59 06:59 Intake Total 5384.815 / 5384.815 1005.563 / 1005.563 Output Total 2610 / 2610 Balance 2774.815 / 2774.815 1005.563 / 1005.563 Cumulative 06/30/23 18:09 thru 07/01/23 11:30 Intake Total 6390.378 Output Total 2610 Balance 3780.378 RT Ventilator Mngmt (Last Documented) Ventilator Ordered Settings Respiratory Rate 15 07/01/23 08:00 Ventilator - PT Measurements Respiratory Rate 15 Coding Level of Care Code 05198 SUB INP/OBS CARE 05/04MIN Diagnoses DKA (diabetic ketoacidosis) E11.10 Diabetes mellitus type: type 1 BERNARD (acute kidney injury) N17.9 AMS (altered mental status) R40.0 Altered mental status type: somnolence Poorly controlled type 1 diabetes mellitus E10.65 GERD (gastroesophageal reflux disease) K21.9 (1) DKA (diabetic ketoacidosis) Diabetes mellitus type: type 1 (3) AMS (altered mental status) Altered mental status type: somnolence Qualified Code(s): R40.0 - Somnolence
[2023-07-01] MEDS: POTASSIUM PHOSPHATE 15 MMOL in SODIUM CHLORIDE 0.9% 250 ML IV ONE (12:27)
[2023-07-01 13:07] LABS: BUN Creatinine Ratio 16.3 (10-20); Calcium 7.5 mg/dl (8.6-10.3); Creatinine Clr Calc Pharmacy 89.2 ml/min; Est GFR (African American) 112.1 ml/min; Est GFR (Non-African American) 96.7 ml/min; Magnesium 1.9 mg/dl (1.7-2.4); Phosphorus 1.7 mg/dl (2.5-4.9); Potassium 3.9 mmol/L (3.5-5.1)
[2023-07-01] MEDS: PANTOprazole 40 MG in SYRINGE 0 ML IV SCH (13:15)
--- NOTE | 2023-07-01 14:45 | Hospitalist Progress Note ---
Date of Service July 01, 2023 Assessment & Plan (1) Acute hyperkalemia: (2) BERNARD (acute kidney injury): (3) DKA (diabetic ketoacidosis): (4) Poorly controlled type 1 diabetes mellitus: (5) Hypotensive episode: (6) Admitted to intensive care unit: (7) Influenza A: Plan Influenza A URI- Possibly trigger of DKA, uncertain timing of symptom onset Start Tamiflu DKA/poorly controlled diabetes mellitus type 1- Trigger noncompliance vs Influenza A infection Currently ICU status pH improved and anion gap closed with improving glucoses status post IVF, bicarb, and insulin drip Diabetic pharmacology consulted, will transition from insulin drip to subcutaneous insulin A1c 10.5% Monitor labs closely Patient requested AMA departure this morning but decided to sleep longer when notified it was 9am Hyperkalemia/acute kidney injury- Resolved s/p calcium gluconate, sodium bicarb, insulin, and IVF Hypotension-resolved Secondary to DKA and moderate dehydration Similar presentation to admission from 04/26-04/27/2023 As much as can be done, will need to have counseling regarding prevention of future admissions Admission and Anticipated Discharge Date Admission Date: June 30, 2023 Subjective Sleepy this morning but does endorse ongoing coughing with slight troubles breathing. Review of Systems Review of Systems: Per subjective Physical Exam Physical Exam: General: Tired-appearing, NAD Cardiovascular: Tachycardic, regular rhythm, no M/R/G Pulmonary: No acute distress, coughing Abdomen: Soft, NT/ND, no guarding Extremities: Moving all extremities Integumentary: No suspicious rash or lesion on exposed skin Neurologic: No focal deficits Psychiatric: Appropriate mood/affect Results & Data Results & Data Vital Signs (Past 12 Hours) Vital Signs Temp Pulse Resp BP Pulse Ox 07/01/23 13:10 125 H 07/01/23 13:00 122 H 07/01/23 13:00 101/60 07/01/23 12:50 123 H 07/01/23 12:40 123 H 07/01/23 12:30 124 H 07/01/23 12:30 94/53 L 07/01/23 12:20 126 H 07/01/23 12:10 126 H 07/01/23 12:00 128 H 07/01/23 11:50 129 H 07/01/23 11:40 131 H 07/01/23 11:40 113/66 07/01/23 11:30 125 H 07/01/23 11:20 124 H 07/01/23 11:10 124 H 07/01/23 11:00 126 H 07/01/23 11:00 123/67 07/01/23 10:50 126 H 07/01/23 10:40 121 H 07/01/23 10:30 122 H 07/01/23 10:30 102/56 L 07/01/23 10:20 121 H 07/01/23 10:10 122 H 07/01/23 10:00 122 H 07/01/23 10:00 106/59 L 07/01/23 09:50 128 H 07/01/23 08:55 139 H 17 93 07/01/23 08:50 37.2 C 124 H 23 91 07/01/23 08:40 37.2 C 136 H 16 90 07/01/23 08:30 37.2 C 124 H 28 H 94 07/01/23 08:30 115/65 07/01/23 08:20 37.2 C 126 H 23 92 07/01/23 08:10 37.2 C 128 H 22 89 L 07/01/23 08:00 37.1 C 133 H 15 91 07/01/23 08:00 127/67 07/01/23 07:30 130/75 07/01/23 07:30 37.2 C 132 H 23 91 07/01/23 07:00 37.2 C 123 H 22 93 07/01/23 07:00 116/64 07/01/23 06:30 37.1 C 125 H 20 93 07/01/23 06:30 131/71 07/01/23 06:00 37.1 C 124 H 22 95 07/01/23 06:00 125/78 07/01/23 05:30 37.0 C 129 H 27 H 93 07/01/23 05:30 142/78 H 07/01/23 05:00 118/68 07/01/23 05:00 36.9 C 116 H 22 95 07/01/23 04:30 37.0 C 117 H 25 H 95 07/01/23 04:30 124/73 07/01/23 04:14 119/70 03/23/24 04:00 36.9 C 119 H 23 95 07/01/23 03:30 36.9 C 121 H 23 95 07/01/23 03:30 123/72 07/01/23 03:00 36.7 C 124 H 22 96 07/01/23 03:00 107/58 L Laboratory Results VBG this morning with pH 7.35, sodium normalized to 143, potassium 3.9, creatinine improved to 0.98, glucose down to the high 100s/low 200s, calcium 7.5, phosphorus 1.7, anion gap down to 8 PG Care Time/CCT Total # of Minutes Spent Total Time Spent with Patient: Total time spent is greater than 50% in coordination of care (as documented) at patient's floor/unit and/or counseling patient: Coding Level of Care Code 32060 SUB INP/OBS CARE 3/50MIN Diagnoses Acute hyperkalemia E87.5 BERNARD (acute kidney injury) N17.9 DKA (diabetic ketoacidosis) E11.10 Diabetes mellitus type: type 1 Poorly controlled type 1 diabetes mellitus E10.65 Hypotensive episode I95.9 Admitted to intensive care unit Z78.9 Influenza A J10.1 (3) DKA (diabetic ketoacidosis) Diabetes mellitus type: type 1
[2023-07-01 15:40] LABS: BUN Creatinine Ratio 14.4 (10-20); Calcium 7.5 mg/dl (8.6-10.3); Creatinine Clr Calc Pharmacy 97.1 ml/min; Est GFR (African American) 124.3 ml/min; Est GFR (Non-African American) 107.2 ml/min; Magnesium 1.9 mg/dl (1.7-2.4); Phosphorus 2.8 mg/dl (2.5-4.9); Potassium 4.5 mmol/L (3.5-5.1)
[2023-07-01] MEDS: INSULIN ASPART PER UNIT CHARGE SC SCH (16:22)
--- NOTE | 2023-07-01 17:55 | Discharge Summary ---
Date of Service July 01, 2023 Admission HPI Per Admitting Provider The patient is a 37-year-old male with a past medical history including DKA, major depressive disorder, poorly controlled diabetes mellitus type 1, diabetic foot ulcer, diabetic peripheral neuropathy, GERD, tobacco use disorder and B12 deficiency. The patient presents today with nearly the same presentation subjectively and laboratory abnormality bray as his last admission from 04/26- 04/27/2023. The patient will be mated to the ICU with DKA protocol order set, already begun in the ED this. While in ED, the patient has had some improvement in his mentation, but still is quite confused Admission Exam Per Admitting Provider The patient is disoriented and confused, normocephalic and atraumatic, lying in bed, and in no acute distress. HEENT--PERRL, EOMI, mucous membranes and oropharynx dry. Neck--supple. No JVD. No bruits. Thyroid normal, trachea midline, no adenopathy. Heart--normal S1 and S2. No murmurs, rubs or gallops. Lungs--clear bilaterally, no respiratory distress, no accessory muscle use. Abdomen--normal bowel sounds and soft. Nontender. Nondistended, no hernias or masses, no organomegaly. Extremities--No edema. Dermatologic--normal skin turgor, normal color, no abnormal lymph nodes, no rash. Neurologic--cranial nerves II through XII grossly intact. Rheumatologic--limited exam Psychiatric--disoriented and confused Principal Diagnosis DKA, Influenza A Discharge Exam General: Tired-appearing, NAD Cardiovascular: Tachycardic, regular rhythm, no M/R/G Pulmonary: No acute distress, coughing Abdomen: Soft, NT/ND, no guarding Extremities: Moving all extremities Integumentary: No suspicious rash or lesion on exposed skin Neurologic: No focal deficits Psychiatric: Appropriate mood/affect Discharge Data Allergies Allergy/AdvReac Type Severity Reaction Status Date / Time codeine Allergy Intermediate Rash Verified 06/30/23 20:14 erythromycin base Allergy Unknown HAPPENED Verified 06/30/23 20:14 A SMALL CHILD Consultations 06/30/23 19:40 ED Decision to Admit Stat 06/30/23 21:08 Consult Patient Care Technician Routine Diabetes Follow up Diabetes Follow-up Needed for HgbA1c >9% Hospital Course (1) Acute hyperkalemia: (2) BERNARD (acute kidney injury): (3) DKA (diabetic ketoacidosis): (4) Poorly controlled type 1 diabetes mellitus: (5) Hypotensive episode: (6) Admitted to intensive care unit: (7) Influenza A: Plan In evening of 06/30, patient chooses to leave hospital AMA Influenza A URI- Possibly trigger of DKA, uncertain timing of symptom onset Start Tamiflu -prescription sent to pharmacy DKA/poorly controlled diabetes mellitus type 1- Trigger noncompliance vs Influenza A infection Currently ICU status pH improved and anion gap closed with improving glucoses status post IVF, bicarb, and insulin drip Diabetic pharmacology consulted, will transition from insulin drip to subcu taneous insulin A1c 10.5% Patient requested AMA departure this morning but decided to sleep longer when notified it was 9am - later in evening requested AMA departure Will need outpatient follow up, for now resume prior diabetic regimen - message sent to nurse meagan to reach out to patient to help coordinate outpatient care Hyperkalemia/acute kidney injury- Resolved s/p calcium gluconate, sodium bicarb, insulin, and IVF Hypotension-resolved Secondary to DKA and moderate dehydration Total Time Total Time Spent Total Time Spent (In Minutes): 30 Total Time Includes: Examination of the Patient, Discharge Planning and Medication Reconciliation Discharge Plan Discharge Items Patient Disposition: Against Medical Advice Reason For Visit: DKA Activity: Resume your previous activity Non-emergency contact: Primary Care Provider Follow-up/Referrals: Carolyn Story MD [Primary Care Provider] - Pending Studies at Discharge: No Stand-Alone Forms: [facility] [employer], Smoking Cessation Medications and DC Order Prescriptions: New oseltamivir [Tamiflu] 75 mg Capsule 75 mg PO BID Qty: 10 0RF Continued (DME) lancets 33 gauge misc See Rx Instructions .Route Qty: 100 3RF Rx Instructions: check blood sugars at least 3 times a day insulin lispro [Humalog KwikPen Insulin] 100 unit/mL insulin pen 20 unit subcut TID Qty: 30 1RF albuterol sulfate 90 mcg/actuation HFA aerosol inhaler 2 puff inhalation Q6H PRN (Reason: shortness of breath or wheezing) Qty: 8.5 5RF (DME) OneTouch Verio test strips Strip See Rx Instructions .Route Qty: 100 1RF Rx Instructions: check blood sugar at least 3 times a day (DME) blood-glucose meter [OneTouch Verio Reflect Meter] Misc See Rx Instructions .Route Qty: 1 0RF Rx Instructions: check blood sugars TID sildenafil 50 mg tablet 50 mg PO DAILY PRN (Reason: sexual activity) Qty: 20 0RF Rx Instructions: administer 30 minutes to 4 hours before activity acetaminophen [Tylenol Extra Strength] 500 mg tablet 1,000 mg PO Q8 PRN (Reason: Pain) (DME) insulin syringe-needle U-100 0.3 mL 31 gauge x 15/64" syringe See Rx Instructions .Route Qty: 100 0RF Rx Instructions: As directed ondansetron HCl 4 mg tablet 4 mg PO TID PRN (Reason: NAUSEA/VOMITING) gabapentin 100 mg capsule 100 mg PO TID PRN (Reason: Pain) insulin glargine [Lantus Solostar U-100 Insulin] 100 unit/mL (3 mL) insulin pen 0 unit subcut DIRECTED Discharge Orders: Left Against Medical Advice (Routine); Ordered 07/01/23 Ordered By: Rosio Ramírez/Other Patient Handouts: Managing Type 1 Diabetes, Diabetic Ketoacidosis Admission Data Admit Date/Time: 06/30/23 20:43 Attending Provider: Rosio Lee Admit Provider: Kenny Aguilar Primary Care Provider: Carolyn Story Other Providers: Kenny Aguilar; Avery Arciniega Coding Level of Care Code 48129 INP/OBS DISCH >30 MIN Diagnoses Acute hyperkalemia E87.5 BERNARD (acute kidney injury) N17.9 DKA (diabetic ketoacidosis) E11.10 Diabetes mellitus type: type 1 Poorly controlled type 1 diabetes mellitus E10.65 Hypotensive episode I95.9 Admitted to intensive care unit Z78.9 Influenza A J10.1
[2023-07-01] MEDS ORDERED: LANTUS PER UNIT CHARGE SC SCH (21:00)
[2023-07-01] MEDS ORDERED: OSELTAMIVIR PHOSPHATE 75 MG CAP PO SCH (21:00)
[2023-07-01 22:36] LABS: A calco-baum cmplx NotReported Not Detected (NotDetected); Bact fragilis Not Reported Not Detected (NotDetected); Blood Culture Id Panel See PCR Comment (NotDetected); C auris Not Reported Not Detected (NotDetected); Calbicans Not Reported Not Detected (NotDetected); Candida glabrata Not Reported Not Detected (NotDetected); Candida krusei Not Reported Not Detected (NotDetected); Cneoformans/gatti Not Reported Not Detected (NotDetected); Cparapsilosis Not Reported Not Detected (NotDetected); E cloacae compx Not Reported Not Detected (NotDetected); Efaecalis Not Reported Not Detected (NotDetected); Efaecium Not Reported Not Detected (NotDetected); Enterobacterales Not Reported Not Detected (NotDetected); Escherichia coli Not Reported Not Detected (NotDetected); H influenzae Not Reported Not Detected (NotDetected); K aerogenes Not Reported Not Detected (NotDetected); Koxytoca Not Reported Not Detected (NotDetected); Kpneumoniae grp Not Reported Not Detected (NotDetected); Lmonocyt Not Reported Not Detected (NotDetected); N meningitidis Not Reported Not Detected (NotDetected); P aeruginosa Not Reported Not Detected (NotDetected); Proteus spp Not Reported Not Detected (NotDetected); Salmonella spp Not Reported Not Detected (NotDetected); Smarcescens Not Reported Not Detected (NotDetected); Staph lugdunensis Not Reported Not Detected (NotDetected); Staph spp. Not Reported DETECTED (NotDetected); Staphaureus Not Reported Not Detected (NotDetected); Staphepi Not Reported Not Detected (NotDetected); Stenmaltophilia Not Reported Not Detected (NotDetected); Strep agal(GrpB) Not Reported Not Detected (NotDetected); Strep pneum Not Reported Not Detected (NotDetected); Strep pyog (GrpA) Not Reported Not Detected (NotDetected); Strep spp Not Reported Not Detected (NotDetected)
[2023-07-01 22:45] LABS: Staphylococcus spp. DETECTED (NotDetected)
[2023-07-02] MEDS ORDERED: INSULIN ASPART PER UNIT CHARGE SC ONE
== END 2023-07-01 18:14 | disposition left against medical advice (07) | DRG 638 ==
LOC: ED 18:25 → 1E 20:43 → SUATTDRO 20:43 → 1E 21:07
DX: E86.0 Dehydration; J10.2 Influenza due to other identified influenza virus with gastrointestinal manifestations; Z91.199 Patient's noncompliance with other medical treatment and regimen due to unspecified reason; Z53.29 Procedure and treatment not carried out because of patient's decision for other reasons; Z88.1 Allergy status to other antibiotic agents; E87.5 Hyperkalemia; E10.10 Type 1 diabetes mellitus with ketoacidosis without coma; Z79.4 Long term (current) use of insulin; G93.40 Encephalopathy, unspecified; K21.9 Gastro-esophageal reflux disease without esophagitis; Z88.5 Allergy status to narcotic agent; I95.9 Hypotension, unspecified; F17.210 Nicotine dependence, cigarettes, uncomplicated; N17.9 Acute kidney failure, unspecified

== ENCOUNTER 2023-07-19 00:01 | Inpatient (IN) ==
--- NOTE | 2023-07-19 00:11 | Emergency Department Note ---
Impression & Plan DKA, type 1, Acute dehydration, Acidosis due to type 1 diabetes mellitus ED Provider Note NAME: HERBER VARGHESE AGE: 38 SEX: M : 1985 ARRIVES VIA: Ambulance INFORMANT: Patient, ED PROVIDER(S): Abhinav Lemus MD CHIEF COMPLAINT: Vomiting, elevated blood sugar MEDICAL DECISION MAKING: Patient presents due to concern for elevated blood sugar and nausea vomiting. Patient does have a known history of noncompliance and DKA. IV was established and blood work was obtained patient was ordered IV fluids 2 L as well as additional Plasma-Lyte. Patient did have a [id number] BMP completed along with a VBG and a lactate. Patient does have a white count of 13 hemoglobin of 13.3. Patient did have dark emesis noted to the patient was ordered Protonix bolus and drip. Patient's initial VBG shows a pH of 7. Patient's initial blood sugar 708. Lactate of 3.1. Patient's LFTs do show mild elevation in alk phosphatase at 130 but otherwise unremarkable. Patient creatinine 1.46. Patient was ordered insulin drip. I did speak with the on-call hospital service Dr. Carey and the patient was admitted to the intensive care unit. Critical Care: I have personally spent 45 minutes of critical care time in direct management of this patient. This includes bedside care, interpretation of diagnostic studies, and testing, discussion with consultants, patient, and family members, and other require inpatient management activities. This 45 minutes is in excess of all separately billable procedures. Discussion w/ other healthcare providers: Dr. Carey inpatient medicine service Prior /Outside records reviewed: None Differential diagnosis: Gastroenteritis, food borne illness, infection, appendicitis, diverticulitis, inflammatory bowel disease, obstruction among others were considered. Diagnostics, as interpreted by me: ECG: Sinus tachycardia, rate 144, normal [place] and QRS, normal axis. Cardiac monitoring: An order was placed for continuous cardiac monitoring. The monitor shows a rate of 145 with tachycardic and regular rhythm. Patient was placed on pulse oximetry Medical decision rules: None Imaging studies: I informally interpreted the patient's chest x-ray does not show obvious pneumonia or pneumothorax with formal report to follow. HPI: Patient presents due to concern for elevated blood sugar and vomiting. There was concern the patient did have dark emesis. Patient states that he does take his diabetic medications but the patient does have a history of noncompliance. Patient does feel nauseated and feels as though he is going to vomit currently. BSG prior to arriving was greater than 500 and on presentation read only "high." Patient Nuys any chest pains or shortness of breath. PAST MEDICAL HISTORY: See Below PAST SURGICAL HISTORY: See Below SOCIAL HISTORY: See Below HOME MEDICATIONS: See Below ALLERGIES: See Below VITALS: See Below PHYSICAL EXAMINATION: GENERAL: Ill in appearance. EYE EXAM: Normal conjunctiva. PERRL, no anisocoria and EOM's grossly intact w/o pain. OROPHARYNX: Dry mucus membranes. NECK: Trachea midline, no stridor. LUNGS: Clear to auscultation. Normal chest wall mechanics. HEART: Tachycardic and regular, no MRG. ABDOMEN: Abdomen soft, non-tender, no masses, no rebound or guarding. BACK: No CVA TTP. SKIN: No rashes and no bruising. UPPER EXTREMITIES: Upper extremities are grossly normal. LOWER EXTREMITIES: Grossly normal, no edema. NEURO EXAM: Awake and alert does follow basic commands. Moves all 4 extremities. Past Med/Surg History Medical History Fracture of proximal humerus with nonunion Poorly controlled type 1 diabetes mellitus Major depressive disorder, recurrent severe without psychotic features Medical non-compliance Surgical History No significant past surgical history Family History Other Diabetes Social History Smoking Status: Never smoker Tobacco Type: Cigarettes Cigarettes Per Day: 1 pack; Second Hand Exposure: No; Do You Dip or Chew Tobacco: No; Hx Alcohol Use: No Hx Substance Use: No Preferred Language: Brazilian Communication Ability: Impaired Visual Impairment: Limited Hearing Ability: Normal Authorization Nurse Required: No Beliefs That Will Affect Care: None marital status: Single Current Living Situation: Other Current Living Situation Comment: at home current occupational status: disabled How many Children do You have: 0 Feels Safe at Home: Yes Childhood Exposure to Second-Hand Smoke: No Diet: diabetic and regular caffeine: Yes during the past year weight has: remained stable Dental Care, Regularly: Yes Physical Activity Frequency: Daily Seatbelt Use: always Sunscreen Use: No Do you think of yourself as: straight/heterosexual Sexual Activity: has been sexually active within the last 12 months Gender Identity: Male Assistive Devices: Other Allergies Allergies Allergy/AdvReac Type Severity Reaction Status Date / Time codeine Allergy Intermediate Rash Verified 06/30/23 20:14 erythromycin base Allergy Unknown HAPPENED Verified 06/30/23 20:14 A SMALL CHILD Home Meds Home Medications Medication Instructions Recorded Confirmed acetaminophen 500 mg tablet 1,000 mg PO Q8 PRN Pain 08/19/22 07/19/23 (Tylenol Extra Strength) gabapentin 100 mg capsule 200 mg PO TID PRN Pain 06/30/23 07/19/23 Previous Rx's Medication Instructions Recorded insulin syringe-needle U-100 0.3 #100 ea 07/31/21 mL 31 gauge x 15/64" blood-glucose meter (OneTouch #1 ea 08/22/22 Verio Reflect Meter) albuterol sulfate 90 mcg/actuation 2 puff inhalation Q6H PRN 01/30/23 aerosol inhaler shortness of breath or wheezing #8.5 grams lancets 33 gauge #100 ea 01/30/23 sildenafil 50 mg tablet 50 mg PO DAILY PRN sexual activity 02/02/23 #20 tabs blood sugar diagnostic (OneTouch #100 ea 04/04/23 Verio test strips) insulin lispro 100 unit/mL 20 unit (0.2 mL) subcut TID #30 mL 07/05/23 subcutaneous pen (Humalog KwikPen (U-100) Insulin) Results & Data (ED) Vital Signs Vital Signs - 24 hr 07/19/23 00:08 07/19/23 00:14 07/19/23 00:14 Temperature 36.7 C Temperature Source Oral Pulse Rate 144 H 142 H 142 H Pulse Rate from SpO2 Sensor 142 H Respiratory Rate 22 23 Respiratory Effort / Characteristics Non-Labored Spontaneous Respiratory Depth Normal Respiratory Pattern Regular Blood Pressure 117/74 Blood Pressure Mean 88 Blood Pressure Position Lying Pulse Oximetry 99 99 Oxygen Delivery Method Room Air Sepsis New/Unexplained Change in Mental Status N/A Sepsis Action Taken by Nursing No Action Required 07/19/23 00:30 07/19/23 01:00 07/19/23 01:18 Temperature Temperature Source Pulse Rate 142 H 142 H Pulse Rate from SpO2 Sensor 142 H 142 H Respiratory Rate 23 24 Respiratory Effort / Characteristics Respiratory Depth Respiratory Pattern Blood Pressure Blood Pressure Mean Blood Pressure Position Pulse Oximetry 99 100 100 Oxygen Delivery Method Room Air Sepsis New/Unexplained Change in Mental Status Sepsis Action Taken by Skilled Nursing Medications Current Medication List: was personally reviewed by me Laboratory Data Attestation: I reviewed the patient's lab results. 07/19/23 12:30 07/19/23 12:29 Lab Results 07/19/23 07/19/23 07/19/23 Range/Units 00:07 00:25 00:34 WBC 13.92 H (4.8-10.8) K/ul RBC 4.27 L (4.70-6.10) M/uL Hgb 13.3 L (14.0-18.0) g/dl POC Hgb 15.0 (14.0-18.0) g/dl Hct 43.3 (42.0-52.0) % POC Hct 44 (42-52) % MCV 101.4 H (80.0-100.0) fL MCH 31.1 (25.0-34.0) pg MCHC 30.7 L (32.0-36.0) g/dL RDW Std Deviation 57.1 H (36.4-46.3) fL RDW Coeff of Margarita 15.4 H (11.5-14.5) % Plt Count 459 H (130-400) K/uL MPV 8.7 L (9.4-12.4) fL Immature Gran % (Auto) 0.6 % Neut % (Auto) 85.8 % Lymph % (Auto) 7.4 % [place] % (Auto) 5.5 % Eos % (Auto) 0.1 % Baso % (Auto) 0.6 % Neut # (Auto) 11.94 H (1.40-6.50) K/uL Lymph # (Auto) 1.03 L (1.20-3.40) K/uL [place] # (Auto) 0.76 H (0.11-0.59) K/uL Eos # (Auto) 0.01 (0.00-0.50) K/uL Baso # (Auto) 0.09 (0.00-0.20) K/uL Immature Gran # (Auto) 0.09 (0.01-0.20) K/uL PT 10.3 (9.0-12.0) Seconds INR 0.9 (0.9-1.1) VBG pH 7.09 L (7.36-7.41) VBG pCO2 21 L (38-50) mmHg VBG pO2 41 mmHg VBG HCO3 6 mmol/L VBG O2 Saturation < 60.0 % VBG Base Excess -21.7 mEq/L POC Sodium 127 L (135-144) mmol/L Sodium 129 L (136-145) mmol/L POC Potassium 5.2 H (3.3-5.0) mmol/L Potassium 5.2 H (3.5-5.1) mmol/L POC Chloride 95 L (101-112) mmol/L Chloride 85 L (98-107) mmol/L Carbon Dioxide 6 L* (21-32) mmol/L POC Total CO2 8 L* (24-31) mmol/L Anion Gap 38 H (3-11) POC Anion Gap 30.0 H (16-25) mmol/L POC BUN 23 H (7-18) mg/dl BUN 28 H (6-23) mg/dl Creatinine 1.46 H (0.6-1.4) mg/dl POC Creatinine 1.1 (0.6-1.3) mg/dl Est Cr Clr Drug Dosing 65.8 ml/min Est GFR ( Amer) 68.7 ml/min Est GFR (Non-Af Amer) 59.3 ml/min BUN/Creatinine Ratio 19.2 (10-20) Glucose 708 H* (70-99(Fasting)) mg/dl POC Glucose > 600 H* (70-99) mg/dl POC Glucose (other) > 700 H* (70-99) mg/dl Lactate 3.1 H* (0.4-2.0) mmol/L Calcium 8.9 (8.6-10.3) mg/dl POC Ioniz Calcium Zach 1.13 (1.12-1.32) mmol/l Phosphorus 6.2 H (2.5-4.9) mg/dl Magnesium 2.5 H (1.7-2.4) mg/dl Total Bilirubin 0.5 (0.2-1.0) mg/dl AST 17 (13-39) U/L ALT 17 (7-52) U/L Alkaline Phosphatase 130 H (34-104) U/L Total Protein 7.1 (6.0-8.3) gm/dl Albumin 3.8 (3.4-5.0) gm/dl Globulin 3.3 (2.5-4.0) gm/dl Albumin/Globulin Ratio 1.2 (0.9-2) TSH 2.331 (0.300-4.500) uIu/ml Administered Medications Discontinued Medications Dextrose (Dextrose 50% 50 Ml Syringe) 50 ml IV ONE ONE; Protocol Stop: 07/19/23 12:01 Last Admin: 07/19/23 12:06 Dose: 50 ml Documented By: JODY Sodium Chloride (Nss) 2,000 mls @ 999 mls/hr IV .Q2H1M RISSA Stop: 07/19/23 02:30 Last Infusion: 07/19/23 04:16 Dose: Infused Documented By: Admin: 07/19/23 01:32 Dose: 999 mls/hr Documented By: KAMRON Pantoprazole Sodium 80 mg/ (Dextrose) 120 mls @ 480 mls/hr IV NOW ONE Stop: 07/19/23 00:32 Last Infusion: 07/19/23 01:25 Dose: Infused Documented By: Admin: 07/19/23 01:09 Dose: 480 mls/hr Documented By: KAMRON Pantoprazole Sodium 40 mg/ (Dextrose) 100 mls @ 20 mls/hr IV Q5H [facility] Stop: 08/18/23 00:44 Last Admin: 07/19/23 12:06 Dose: 8 mg/hr, 20 mls/hr Documented By: Infusion: 07/19/23 12:06 Dose: Infused Documented By: Admin: 07/19/23 08:49 Dose: 8 mg/hr, 20 mls/hr Documented By: Infusion: 07/19/23 06:30 Dose: Infused Documented By: Admin: 07/19/23 01:30 Dose: 8 mg/hr, 20 mls/hr Documented By: KAMRON Insulin Human Regular 250 (units/ Sodium Chloride) 250 mls @ 3 mls/hr IV .Q24H RISSA; Protocol Stop: 08/18/23 00:29 Last Titration: 07/19/23 09:39 Dose: 5.6 units/hr, 5.6 mls/hr Documented By: DAMIR Co-signed By: BEAN Titration: 07/19/23 08:10 Dose: Infused Documented By: DAMIR Co-signed By: LINDA Admin: 07/19/23 08:10 Dose: 7 units/hr, 7 mls/hr Documented By: DAMIR Co-signed By: LINDA Titration: 07/19/23 05:47 Dose: 5 units/hr, 5 mls/hr Documented By: ANYA Co-signed By: RM Titration: 07/19/23 05:17 Dose: 0 units/hr, 0 mls/hr Documented By: ANYA Co-signed By: YEYO Admin: 07/19/23 04:09 Dose: 8.3 units/hr, 8.3 mls/hr Documented By: ANYA Co-signed By: RM Titration: 07/19/23 04:09 Dose: Infused Documented By: ANYA Co-signed By: RM Admin: 07/19/23 01:09 Dose: 6.9 units/hr, 6.9 mls/hr Documented By: KAMRON Co-signed By: APRIL Parenteral Electrolytes (Plasma-Lyte A Ph 7.4) 1,000 mls @ 999 mls/hr IV .Q1H1M ONE Stop: 07/19/23 01:50 Last Admin: 07/19/23 03:35 Dose: Not Given Documented By: ANYA Parenteral Electrolytes (Plasma-Lyte A Ph 7.4) 1,000 mls @ 200 mls/hr IV .Q5H RISSA Stop: 08/18/23 04:59 Last Infusion: 07/19/23 11:52 Dose: Infused Documented By: Admin: 07/19/23 05:27 Dose: 200 mls/hr Documented By: ANYA Parenteral Electrolytes (Plasma-Lyte A Ph 7.4) 1,000 mls @ 999 mls/hr IV .Q1H1M ONE Stop: 07/19/23 07:44 Last Infusion: 07/19/23 08:35 Dose: Infused Documented By: Admin: 07/19/23 07:00 Dose: 999 mls/hr Documented By: LINDA Potassium Chloride/Dextrose/Sod Cl (D5w And 1/2nss + 20meq Kcl) 20 meq in 1,000 mls @ 200 mls/hr IV .Q5H RISSA Stop: 08/18/23 08:29 Last Admin: 07/19/23 08:37 Dose: 200 mls/hr Documented By: LINDA Parenteral Electrolytes (Plasma-Lyte A Ph 7.4) 1,000 mls @ 999 mls/hr IV .Q1H1M ONE Stop: 07/19/23 09:58 Last Admin: 07/19/23 11:46 Dose: Not Given Documented By: JODY Insulin Aspart (Insulin Aspart Per Unit Charge) 0 units SC ACHS RISSA Stop: 08/18/23 07:29 Last Admin: 07/19/23 09:29 Dose: Not Given Documented By: DAMIR Metoclopramide HCl (Metoclopramide Hcl Inj 5 Mg/Ml 2 Ml Vial) 10 mg IV NOW Stop: 07/19/23 00:19 Last Admin: 07/19/23 02:04 Dose: 10 mg Documented By: KAMRON Misbrendenaneous (Stat Iv Infusion Titration Per Protocol) 1 each N/A NOW Stop: 07/19/23 00:19 Last Admin: 07/19/23 01:29 Dose: 1 each Documented By: KAMRON Ball[place] (Dka Goal Range 150-250 Mg/Dl) 1 each N/A ONE ONE Stop: 07/19/23 00:19 Last Admin: 07/19/23 01:28 Dose: 1 each Documented By: KAMRON Ondansetron HCl (Ondansetron Inj 2 Mg/Ml 2 Ml Vial) 4 mg IV NOW STA Stop: 07/19/23 01:22 Last Admin: 07/19/23 02:04 Dose: 4 mg Documented By: KAMRON Ondansetron HCl (Ondansetron Inj 2 Mg/Ml 2 Ml Vial) Confirm Administered Dose 4 mg .ROUTE .STK-MED ONE Stop: 07/19/23 01:43 Last Admin: 07/19/23 02:33 Dose: Not Given Documented By: KAMRON Pantoprazole Sodium (Pantoprazole Bolus/Drip) 1 each IV NOW STA Stop: 07/19/23 00:19 Last Admin: 07/19/23 01:29 Dose: 1 each Documented By: KAMRON Potassium Chloride/Dextrose/Sod Cl (D5w And 1/2nss + 20meq Kcl 1,000 Ml Bag) Confirm Administered Dose 20 meq IV .STK-MED ONE Stop: 07/19/23 06:49 Last Admin: 07/19/23 08:48 Dose: Not Given Documented By: NDW Imaging Data Radiologist's Impression: XR chest 1V portable CLINICAL HISTORY: Admission COMPARISON STUDY: Chest radiograph June 30, 2023. FINDINGS: Lung volumes are normal. Lungs are clear. There is no pneumothorax or pleural effusion. Cardiac size is normal. Mediastinal contours are normal. There is no evidence for pulmonary edema. IMPRESSION: No acute cardiopulmonary findings. ACT 112: Negative or not required by law. Electronically signed by: Filemon Beverly M.D. 07/19/2023 6:56 AM Dictated: 07/19/[id number] Transcribed: 07/19/23653 Discharge Plan Visit Data Chief Complaint: Hyperglycemia Stated Complaint: HYPERGLYCEMIA, COFFEE GROUND EMESIS ED Provider: Abhinav Lemus Discharge Problem: DKA, type 1, Acute dehydration, Acidosis due to type 1 diabetes mellitus Patient Disposition: Admitted As Inpatient Discharge Instructions Interventions: ED Discharge Assessment Last Done: 07/19/23 10:59 Discharge Problem: DKA, type 1 Qualifiers: Diabetes mellitus complication detail: without coma Qualified Code(s): E10.10 - Type 1 diabetes mellitus with ketoacidosis without coma
[2023-07-19] MEDS ORDERED: CARBOHYDRATES FOR HYPOGLYCEMIA PO PRN ×2 (00:18→03:15)
[2023-07-19] MEDS ORDERED: GLUCOSE 10 TAB/TUBE PO PRN ×2 (00:18→03:15)
[2023-07-19] MEDS ORDERED: GLUCAGON FOR INJ 1 MG VIAL SQ PRN (00:18)
[2023-07-19] MEDS ORDERED: GLUCOSE 40% GEL 15 GM TUBE PO PRN ×2 (00:18→03:15)
[2023-07-19] MEDS ORDERED: DEXTROSE 50% 50 ML SYRINGE IV PRN ×2 (00:18→03:15)
[2023-07-19 00:36] LABS: Base Excess VBG -21.7 mEq/L; HCO3 VBG 6 mmol/L; Oxygen Saturation VBG < 60.0 %; PCO2 VBG 21 mmHg (38-50); PO2 VBG 41 mmHg; pH VBG 7.09 (7.36-7.41)
[2023-07-19 00:44] LABS: Basophils # (auto) 0.09 K/uL (0.00-0.20); Basophils % (auto) 0.6 %; Eosinophils # (auto) 0.01 K/uL (0.00-0.50); Eosinophils % (auto) 0.1 %; Hematocrit (blood only) 43.3 % (42.0-52.0); Hemoglobin 13.3 g/dl (14.0-18.0); Immature Granulocytes # (auto) 0.09 K/uL (0.01-0.20); Immature Granulocytes % (auto) 0.6 %; Lymphocytes # (auto) 1.03 K/uL (1.20-3.40); Lymphocytes % (auto) 7.4 %; Mean Corpuscular Hemoglobin 31.1 pg (25.0-34.0); Mean Corpuscular Hgb Conc 30.7 g/dL (32.0-36.0); Mean Corpuscular Volume 101.4 fL (80.0-100.0); Mean Platelet Volume 8.7 fL (9.4-12.4); Monocytes # (auto) 0.76 K/uL (0.11-0.59); Monocytes % (auto) 5.5 %; Neutrophils # (auto) 11.94 K/uL (1.40-6.50); Neutrophils % (auto) 85.8 %; Platelet Count 459 K/uL (130-400); RDW Coefficient of Variation 15.4 % (11.5-14.5); RDW Standard Deviation 57.1 fL (36.4-46.3); Red Blood Count 4.27 M/uL (4.70-6.10); White Blood Count 13.92 K/ul (4.8-10.8)
[2023-07-19 00:46] LABS: iSTAT Blood Urea Nitrogen 23 mg/dl (7-18); iSTAT Carbon Dioxide 8 mmol/L (24-31); iSTAT Chloride 95 mmol/L (101-112); iSTAT Creatinine 1.1 mg/dl (0.6-1.3); iSTAT Glucose > 700 mg/dl (70-99); iSTAT Hematocrit 44 % (42-52); iSTAT Ionized Calcium 1.13 mmol/l (1.12-1.32); iSTAT Potassium 5.2 mmol/L (3.3-5.0); iSTAT Sodium 127 mmol/L (135-144)
[2023-07-19 01:08] LABS: INR 0.9 (0.9-1.1); Prothrombin Time 10.3 Seconds (9.0-12.0)
[2023-07-19] MEDS: PANTOprazole 80 MG in DEXTROSE 5% 100 ML IV ONE (01:09)
[2023-07-19] MEDS: INSULIN REGULAR 250 UNITS in SODIUM CHLORIDE 0.9% 247.5 ML IV SCH (01:09)
[2023-07-19 01:19] LABS: Albumin Globulin Ratio 1.2 (0.9-2); Albumin Level 3.8 gm/dl (3.4-5.0); BUN Creatinine Ratio 19.2 (10-20); Bilirubin,Total 0.5 mg/dl (0.2-1.0); Calcium 8.9 mg/dl (8.6-10.3); Creatinine Clr Calc Pharmacy 65.8 ml/min; Est GFR (African American) 68.7 ml/min; Est GFR (Non-African American) 59.3 ml/min; Globulin 3.3 gm/dl (2.5-4.0); Magnesium 2.5 mg/dl (1.7-2.4); Phosphorus 6.2 mg/dl (2.5-4.9); Potassium 5.2 mmol/L (3.5-5.1); Thyroid Stimulating Hormone 2.331 uIu/ml (0.300-4.500); Total Protein 7.1 gm/dl (6.0-8.3)
[2023-07-19] MEDS: DKA GOAL RANGE 150-250 mg/dl ONE (01:28)
[2023-07-19] MEDS: STAT IV Infusion **Titration per Protocol STA (01:29)
[2023-07-19] MEDS: PANTOPRAZOLE BOLUS/DRIP IV STA (01:29)
[2023-07-19] MEDS: PANTOprazole 40 MG in DEXTROSE 5% MINI-B 100 ML IV SCH (01:30)
--- NOTE | 2023-07-19 01:31 | History & Physical Report ---
Date of Service July 19, 2023 Assessment & Plan (1) DKA (diabetic ketoacidosis): Plan: 38-year-old male with history of poorly controlled type 1 diabetes (Last hemoglobin A1c = 10.5 on 06/30/2023), frequent hospitalizations for DKA presenting with 5 days of generalized illness with nausea, vomiting and abdominal pain. Patient presenting in severe DKA. pH on VBG = 7.09, serum bicarbonate = 6, anion gap = 38, blood glucose = 708 Has been given insulin bolus and drip as well as 2 L of IV fluids thus far. Admit to PCU -Keep patient n.p.o. -Continue aggressive IV fluids Continue insulin drip per protocol BMP, VBG, mag, Phos every 4 hours -Transition to subcutaneous insulin when anion gap is closed and patient's symptoms improve -Check urinalysis and chest x-ray to search for possible infection. Patient with leukocytosis Repeat lactate with next blood draw (2) Coffee ground emesis: Plan: Patient with ongoing nausea and vomiting. Initially appeared dark in color, possibly coffee-ground emesis. Now vomitus appears more red. Patient remains. Blood pressure is stable. -Maintain 2 large-bore peripheral IVs Monitor CBC. Transfuse for ongoing bleed, hemoglobin less than 7 Continue Protonix drip Zofran as needed for nausea. Repeat EKG in the morning since QT interval (slightly prolonged on initial EKG) F/E/N - aggressive IVF, serial labs, keep n.p.o. ProphylaxisSCDs to bilateral lower extremities Dispositionadmit to PCU Codefull History of Present Illness Chief Complaint: nausea, vomiting, DKA Primary Care Provider: Carolyn Story MD Laron Horton is a 38-year-old male with history of diabetes type 1, frequent hospitalizations for DKA, depression and GERD presenting with ongoing illness for 5 days. Patient reports that he has had nausea, vomiting and abdominal pain for 5 days. Denies fevers, chills, cough, shortness of breath, chest pain. He reports he has been taking his insulin with no missed doses. Elevated blood sugar today by EMS at 595. Labs in the ER with large anion gap acidosis with pH = 7.09, elevated blood sugar of greater than 700. Patient with nausea and multiple episodes of emesis in the ERnoted to be coffee-ground at first, now with more red appearing blood in the bag. ER course: Protonix 80 mg IV Continuous drip Insulin drip Normal saline x 2 L Allergies Allergy/AdvReac Type Severity Reaction Status Date / Time codeine Allergy Intermediate Rash Verified 06/30/23 20:14 erythromycin base Allergy Unknown HAPPENED Verified 06/30/23 20:14 A SMALL CHILD Home Medications Medication Instructions Recorded Confirmed Type insulin syringe-needle U-100 0.3 #100 ea 07/31/21 07/19/23 Rx mL 31 gauge x 15/64" acetaminophen 500 mg tablet 1,000 mg PO Q8 PRN Pain 08/19/22 07/19/23 History (Tylenol Extra Strength) blood-glucose meter (OneTouch #1 ea 08/22/22 07/19/23 Rx Verio Reflect Meter) albuterol sulfate 90 mcg/actuation 2 puff inhalation Q6H PRN 01/30/23 07/19/23 Rx aerosol inhaler shortness of breath or wheezing #8.5 grams lancets 33 gauge #100 ea 01/30/23 07/19/23 Rx sildenafil 50 mg tablet 50 mg PO DAILY PRN sexual activity 02/02/23 07/19/23 Rx #20 tabs blood sugar diagnostic (OneTouch #100 ea 04/04/23 07/19/23 Rx Verio test strips) gabapentin 100 mg capsule 200 mg PO TID PRN Pain 06/30/23 07/19/23 History insulin lispro 100 unit/mL 20 unit (0.2 mL) subcut TID #30 mL 07/05/23 07/19/23 Rx subcutaneous pen (Humalog KwikPen (U-100) Insulin) Past Med/Surg History Medical History Fracture of proximal humerus with nonunion Poorly controlled type 1 diabetes mellitus Major depressive disorder, recurrent severe without psychotic features Medical non-compliance Surgical History No significant past surgical history Family History Other Diabetes Social History Smoking Status: Former smoker Tobacco Type: Cigarettes Cigarettes Per Day: 1 pack; Second Hand Exposure: No; Do You Dip or Chew Tobacco: No; Hx Alcohol Use: No Hx Substance Use: Yes Prescribed Medications: Marijuana Last Used Substance: Unknown Preferred Language: Mongolian Communication Ability: Impaired Visual Impairment: Limited Hearing Ability: Normal Fertilizer Mixer Required: No Beliefs That Will Affect Care: None marital status: Single Current Living Situation: Other Current Living Situation Comment: Unable to obtain at this time. current occupational status: disabled How many Children do You have: 0 Feels Safe at Home: Yes Childhood Exposure to Second-Hand Smoke: No Diet: diabetic and regular caffeine: Yes during the past year weight has: remained stable Dental Care, Regularly: Yes Physical Activity Frequency: Daily Seatbelt Use: always Sunscreen Use: No Do you think of yourself as: straight/heterosexual Sexual Activity: has been sexually active within the last 12 months Gender Identity: Male Assistive Devices: Other Review of Systems Review of Systems: All systems reviewed & are unremarkable except as noted in HPI & below Physical Exam Physical Exam: General: patient acutely ill in appearance, vomiting actively with emesis bag filled with dark liquid, awake and alert, able to answer questions and follow commands Skin: warm, dry, intact, no rashes or lesions HEENT: NC/AT, PERRL, EOMI, anicteric sclera, conjunctiva without injection, external ear normal to inspection and nontender, nares patent, dry mucus membranes, dentition intact, no oropharyngeal lesions, neck supple, trachea midline, no LAD, no thyromegaly, no JVD Heart: +S1/S2, regular, tachycardic no m/r/g Lungs: equal air entry bilaterally, no rales/rhonchi/wheezes, Kussmaul respirations noted Abd: +BS, soft, ND, diffusely tender, no masses/organomegaly/ascites Ext: warm, 2+ pulses in UE/LE bilaterally, no clubbing/cyanosis or edema Neuro: Grossly nonfocal, moving all extremities with 5 out of 5 strength Results & Data Results & Data Vital Signs (Past 12 Hours) Vital Signs Temp Pulse Resp BP Pulse Ox O2 Del Method 07/19/23 01:18 100 Room Air 07/19/23 00:14 142 H 07/19/23 00:08 36.7 C 144 H 22 117/74 99 Room Air Laboratory Results Laboratory Results WBC 13.92 K/ul (4.8-10.8) H 07/19/23 00:25 RBC 4.27 M/uL (4.70-6.10) L 07/19/23 00:25 Hgb 13.3 g/dl (14.0-18.0) L 07/19/23 00:25 POC Hgb 15.0 g/dl (14.0-18.0) 07/19/23 00:34 Hct 43.3 % (42.0-52.0) 07/19/23 00: POC Hct 44 % (42-52) 07/19/23 00:34 MCV 101.4 fL (80.0-100.0) H 07/19/23 00:25 MCH 31.1 pg (25.0-34.0) 07/19/23 00: MCHC 30.7 g/dL (32.0-36.0) L 07/19/23 00:25 RDW Std Deviation 57.1 fL (36.4-46.3) H 07/19/23 00:25 RDW Coeff of Margarita 15.4 % (11.5-14.5) H 07/19/23 00:25 Plt Count 459 K/uL (130-400) H 07/19/23 00:25 MPV 8.7 fL (9.4-12.4) L 07/19/23 00:25 Immature Gran % (Auto) 0.6 % 07/19/23 00:25 Neut % (Auto) 85.8 % 07/19/23 00:25 Lymph % (Auto) 7.4 % 07/19/23 00:25 Calvert % (Auto) 5.5 % 07/19/23 00:25 Eos % (Auto) 0.1 % 07/19/23 00:25 Baso % (Auto) 0.6 % 07/19/23 00:25 Neut # (Auto) 11.94 K/uL (1.40-6.50) H 07/19/23 00:25 Lymph # (Auto) 1.03 K/uL (1.20-3.40) L 07/19/23 00:25 Calvert # (Auto) 0.76 K/uL (0.11-0.59) H 07/19/23 00:25 Eos # (Auto) 0.01 K/uL (0.00-0.50) 07/19/23 00:25 Baso # (Auto) 0.09 K/uL (0.00-0.20) 07/19/23 00:25 Immature Gran # (Auto) 0.09 K/uL (0.01-0.20) 07/19/23:25 PT 10.3 Seconds (9.0-12.0) 07/19/23: INR 0.9 (0.9-1.1) 07/19/23:25 VBG pH 7.09 (7.36-7.41) L 07/19/23: VBG pCO2 21 mmHg (38-50) L 07/19/23: VBG pO2 41 mmHg 07/19/23: VBG HCO3 6 mmol/L 07/19/23: VBG O2 Saturation < 60.0 % 07/19/23: VBG Base Excess -21.7 mEq/L 07/19/23:25 POC Sodium 127 mmol/L (135-144) L 07/19/23 00:34 Sodium 129 mmol/L (136-145) L 07/19/23 00:25 POC Potassium 5.2 mmol/L (3.3-5.0) H 07/19/23:34 Potassium 5.2 mmol/L (3.5-5.1) H 07/19/23:25 POC Chloride 95 mmol/L (101-112) L 07/19/23:34 Chloride 85 mmol/L (98-107) L 07/19/23 00:25 Carbon Dioxide 6 mmol/L (21-32) L* 07/19/23 00:25 POC Total CO2 8 mmol/L (24-31) L* 07/19/23 00:34 Anion Gap 38 (3-11) H 07/19/23:25 POC Anion Gap 30.0 mmol/L (16-25) H 07/19/23 00:34 POC BUN 23 mg/dl (7-18) H 07/19/23 00:34 BUN 28 mg/dl (6-23) H 07/19/23 00:25 Creatinine 1.46 mg/dl (0.6-1.4) H 07/19/23 00:25 POC Creatinine 1.1 mg/dl (0.6-1.3) 07/19/23 00:34 Est Cr Clr Drug Dosing 65.8 ml/min 07/19/23 00:25 Est GFR ( Amer) 68.7 ml/min 07/19/23 00:25 Est GFR (Non-Af Amer) 59.3 ml/min 07/19/23 00:25 BUN/Creatinine Ratio 19.2 (10-20) 07/19/23 00:25 Glucose 708 mg/dl (70-99(Fasting)) H* 07/19/23 00:25 POC Glucose > 600 mg/dl (70-99) H* 07/19/23 00:07 POC Glucose (other) > 700 mg/dl (70-99) H* 07/19/23 00:34 Lactate 3.1 mmol/L (0.4-2.0) H* 07/19/23 00:25 Calcium 8.9 mg/dl (8.6-10.3) 07/19/23 00:25 POC Ioniz Calcium Zach 1.13 mmol/l (1.12-1.32) 07/19/23 00:34 Phosphorus 6.2 mg/dl (2.5-4.9) H 07/19/23 00:25 Magnesium 2.5 mg/dl (1.7-2.4) H 07/19/23 00:25 Total Bilirubin 0.5 mg/dl (0.2-1.0) 07/19/23 00:25 AST 17 U/L (13-39) 07/19/23 00:25 ALT 17 U/L (7-52) 07/19/23 00:25 Alkaline Phosphatase 130 U/L (34-104) H 07/19/23 00:25 Total Protein 7.1 gm/dl (6.0-8.3) 07/19/23 00:25 Albumin 3.8 gm/dl (3.4-5.0) 07/19/23 00:25 Globulin 3.3 gm/dl (2.5-4.0) 07/19/23 00:25 Albumin/Globulin Ratio 1.2 (0.9-2) 07/19/23 00:25 TSH 2.331 uIu/ml (0.300-4.500) 07/19/23 00:25 ECG Additional Comments: EKG per my interpretation reveals sinus tachycardia 104 bpm, axis, QRS RTC prolo nged at 551 milliseconds no acute ischemic changes PG Care Time/CCT Total # of Minutes Spent Total Time Spent with Patient: Total time spent is greater than 50% in coordination of care (as documented) at patient's floor/unit and/or counseling patient: Coding Level of Care Code 68343 INT INP/OBS CARE 3/75MIN Diagnoses DKA (diabetic ketoacidosis) E11.10 Diabetes mellitus type: type 1 Coffee ground emesis K92.0 (1) DKA (diabetic ketoacidosis) Diabetes mellitus type: type 1
[2023-07-19] MEDS: SODIUM CHLORIDE 0.9% 2,000 ML IV SCH (01:32)
[2023-07-19] MEDS: ONDANSETRON INJ 2 MG/ML 2 ML VIAL IV STA (02:04)
[2023-07-19] MEDS: METOCLOPRAMIDE HCL INJ 5 MG/ML 2 ML VIAL IV STA (02:04)
[2023-07-19] MEDS: ONDANSETRON INJ 2 MG/ML 2 ML VIAL ONE (02:33)
[2023-07-19] MEDS ORDERED: INSULIN REGULAR 250 UNITS in SODIUM CHLORIDE 0.9% 247.5 ML IV SCH (02:52)
[2023-07-19] MEDS ORDERED: GABAPENTIN 100 MG CAP PO PRN (02:52)
[2023-07-19] MEDS ORDERED: STAT IV Infusion **Titration per Protocol STA (02:52)
[2023-07-19] MEDS ORDERED: PENDING 1/2NSS+20mEq KCL IVF SCH ×2 (02:52→05:00)
[2023-07-19] MEDS ORDERED: PHARMACY GLYCEMIC MGMT CONSULT PRN (02:52)
[2023-07-19] MEDS ORDERED: ALBUTEROL HFA 8 GM INHALER INH PRN (02:52)
[2023-07-19] MEDS ORDERED: PENDING D5 1/2NS+20mEq KCL IVF SCH ×2 (02:52→05:00)
[2023-07-19] MEDS ORDERED: DKA GOAL RANGE 150-250 mg/dl ONE (02:52)
[2023-07-19] MEDS ORDERED: PLASMA-LYTE A 1,000 ML IV SCH (02:52)
[2023-07-19] MEDS ORDERED: ONDANSETRON INJ 2 MG/ML 2 ML VIAL IV PRN (02:52)
[2023-07-19] MEDS ORDERED: GLUCAGON FOR INJ 1 MG VIAL IM PRN (03:15)
[2023-07-19] MEDS: PLASMA-LYTE A 1,000 ML IV ONE ×3 (03:35→11:46)
[2023-07-19 03:49] LABS: BUN Creatinine Ratio 17.3 (10-20); Calcium 8.5 mg/dl (8.6-10.3); Creatinine Clr Calc Pharmacy 61.6 ml/min; Est GFR (African American) 63.5 ml/min; Est GFR (Non-African American) 54.8 ml/min; Magnesium 2.5 mg/dl (1.7-2.4); Potassium 4.4 mmol/L (3.5-5.1)
[2023-07-19] MEDS ORDERED: D5W AND 1/2NSS + 20MEQ KCL 20 MEQ/1,000 ML BAG IV SCH (05:15)
[2023-07-19] MEDS: PLASMA-LYTE A 1,000 ML IV SCH (05:27)
--- NOTE | 2023-07-19 06:57 | XRay Report ---
XR chest 1V portable CLINICAL HISTORY: Admission COMPARISON STUDY: Chest radiograph June 30, 2023. FINDINGS: Lung volumes are normal. Lungs are clear. There is no pneumothorax or pleural effusion. Car diac size is normal. Mediastinal contours are normal. There is no evidence for pulmonary edema. IMPRESSION: No acute cardiopulmonary findings. ACT 112: Negative or not required by law. Electronically signed by: Filemon Beverly M.D. 07/19/2023 6:56 AM
[2023-07-19] MEDS ORDERED: INSULIN ASPART PER UNIT CHARGE SC SCH ×2 (07:30)
[2023-07-19 07:55] LABS: BUN Creatinine Ratio 18.9 (10-20); Calcium 7.8 mg/dl (8.6-10.3); Creatinine Clr Calc Pharmacy 75.7 ml/min; Est GFR (African American) 81.4 ml/min; Est GFR (Non-African American) 70.2 ml/min; Magnesium 2.2 mg/dl (1.7-2.4); Phosphorus 3.3 mg/dl (2.5-4.9); Potassium 4.6 mmol/L (3.5-5.1)
[2023-07-19 08:09] LABS: Appearance Urine Clear (Clear); Bacteria Urine Automated None Seen (None Seen); Bilirubin Urine Negative (Negative); Blood Urine Negative (Negative); Color Urine Yellow; Epithelial Cell Urine Auto 0-2 /hpf (0-2); Glucose Urine UA 3+ (Negative); Ketones Urine 4+ (Negative); Leukocyte Esterase Urine Negative (Negative); Nitrite Urine Negative (Negative); Protein Urine Trace (Negative); RBC Urine Automated 0-2 /hpf (0-2); Specific Gravity Urine 1.023 (1.000-1.030); Urobilinogen Urine Negative (Negative); WBC Urine Automated 0-5 /hpf (0-5)
[2023-07-19] MEDS: D5W AND 1/2NSS + 20MEQ KCL 20 MEQ/1,000 ML BAG IV SCH (08:37)
[2023-07-19] MEDS: KCL IV ONE (08:48)
[2023-07-19] MEDS: D5W IV ONE (08:48)
[2023-07-19] MEDS: [UNRECOGNIZED DRUG - OTHER] IV ONE (08:48)
--- NOTE | 2023-07-19 09:23 | Critical Care Consultation ---
Date of Consultation July 19, 2023 Assessment & Plan (1) Coffee ground emesis: (2) Hypotensive episode: (3) Acute hyperkalemia: (4) DKA (diabetic ketoacidosis): (5) Major depressive disorder, recurrent severe without psychotic features: (6) Poorly controlled type 1 diabetes mellitus: (7) DKA (diabetic ketoacidosis): (8) Medical non-compliance: (9) GERD (gastroesophageal reflux disease): Plan Assessment: 38yo male PMHx poorly controlled T1DM, frequent hospitalizations for DKA, depression, GERD who presented with illness x5 days. ICU consulted for DKA management, hypotension, tachycardia, concern for GI bleed Critical care indication: severe dka, hypotension Plan: Neurologic CAM ICU negative Sedation: none Analgesia: none Cardiac hypotensive tachycardic continue aggressive fluid resuscitation no known cardiac dx Respiratory No prior history of respiratory disease pt is 1PPD smoker Maintaining adequate oxygen saturation on room air Gastrointestinal Diet: NPO episodes of coffee ground and BRB emesis rec'd IV zofran pantoprazole drip Renal/electrolytes Na 127 on admission, continue NSS +40mEqK, once gap closed D5 1/2NS K 5.2 on admission, now 4.6 continue as above, replete as indicated once on D5 BMP, mag, phos q4h Genitourinary No concerns at this time Strict I/O's Endocrine DKA Insulin gtt per protocol Received 2L NSS in ED Continue NSS + 40 mEq KCl @ 250mL/hr Once BSG goal is achieved (150-250), change fluids to D5 NSS + 40 mEq KCl @ 250mL/hr Continue BSG q1h BMP, magnesium, phosphorous, and VBG q4h Once anion gap closes, switch from insulin gtt to sq Diabetic education consult placed, recommendations appreciated HbA1c 10.5%, repeat pending Hematologic Hgb stable at this time CBC q6h transfuse below Hb 7 Infectious disease Afebrile since admission No concern for infection at this time Integumentary Episodes of BRB and coffee ground emesis Keep NPO GI PPx w/protonix drip Zofran PRN N/V GI consult Lines/access PIVs intact Maintain two large bore IVs Prophylaxis DVT ppx: SCDs GI ppx: Protonix drip Code status: full Isolation: none Disposition: ICU Thank you the opportunity to participate in this patient's care. Please see attending documentation for further recommendations. History of Present Illness Reason for Consultation: DKA, ?GI Bleed Attending Physician: Rocco Solano History of Present Illness Assessment: 38yo male PMHx poorly controlled T1DM, frequent hospitalizations for DKA, depression, GERD who presented with illness x5 days. ICU consulted for DKA managment, hypotension, tachycardia, concern for GI bleed. pt states last took insulin yesterday, has felt poorly for last 5 days. no changes in diet, appetite, lifestyle since last admission. Denies CP, SOB, N/V since admission Allergies Allergy/AdvReac Type Severity Reaction Status Date / Time codeine Allergy Intermediate Rash Verified 06/30/23 20:14 erythromycin base Allergy Unknown HAPPENED Verified 06/30/23 20:14 A SMALL CHILD Home Medications Medication Instructions Recorded Confirmed Type insulin syringe-needle U-100 0.3 #100 ea 07/31/21 07/19/23 Rx mL 31 gauge x 15/64" acetaminophen 500 mg tablet 1,000 mg PO Q8 PRN Pain 08/19/22 07/19/23 History (Tylenol Extra Strength) blood-glucose meter (OneTouch #1 ea 08/22/22 07/19/23 Rx Verio Reflect Meter) albuterol sulfate 90 mcg/actuation 2 puff inhalation Q6H PRN 01/30/23 07/19/23 Rx aerosol inhaler shortness of breath or wheezing #8.5 grams lancets 33 gauge #100 ea 01/30/23 07/19/23 Rx sildenafil 50 mg tablet 50 mg PO DAILY PRN sexual activity 02/02/23 07/19/23 Rx #20 tabs blood sugar diagnostic (OneTouch #100 ea 04/04/23 07/19/23 Rx Verio test strips) gabapentin 100 mg capsule 200 mg PO TID PRN Pain 06/30/23 07/19/23 History insulin lispro 100 unit/mL 20 unit (0.2 mL) subcut TID #30 mL 07/05/23 07/19/23 Rx subcutaneous pen (Humalog KwikPen (U-100) Insulin) Patient History Medical History Fracture of proximal humerus with nonunion Poorly controlled type 1 diabetes mellitus Major depressive disorder, recurrent severe without psychotic features Medical non-compliance Surgical History No significant past surgical history Family History Other Diabetes Social History Smoking Status: Never smoker Tobacco Type: Cigarettes Cigarettes Per Day: 1 pack; Second Hand Exposure: No; Do You Dip or Chew Tobacco: No; Hx Alcohol Use: No Hx Substance Use: No Preferred Language: Albanian Communication Ability: Impaired Visual Impairment: Limited Hearing Ability: Normal 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 Required: No Beliefs That Will Affect Care: None marital status: Single Current Living Situation: Other Current Living Situation Comment: at home current occupational status: disabled How many Children do You have: 0 Feels Safe at Home: Yes Childhood Exposure to Second-Hand Smoke: No Diet: diabetic and regular caffeine: Yes during the past year weight has: remained stable Dental Care, Regularly: Yes Physical Activity Frequency: Daily Seatbelt Use: always Sunscreen Use: No Do you think of yourself as: straight/heterosexual Sexual Activity: has been sexually active within the last 12 months Gender Identity: Male Assistive Devices: Other Review of Systems Review of Systems: reviewed, per HPI Physical Exam Physical Exam: Constitutional: ill appearing, arousable, answers questions appropriately HEENT: NCAT, no conjunctival injection CV: sinius tachycardia, no murmur appreciated, extremities well-perfused, no LE edema Resp: CTABL, no wheezes/rales/rhonchi appreciated, no increased work of breathing GI: soft, nondistended, nontender, BS normoactive MSK: no gross deformities appreciated Skin: warm, dry, no rash appreciated Neuro: alert, no focal neurologic deficit appreciated Results & Data Results & Data Vital Signs (Past 12 Hours) Vital Signs Temp Pulse Pulse Resp BP BP Pulse Ox 07/19/23 07:41 127 H 07/19/23 07:04 127 H 19 98 07/19/23 07:04 82/48 L 07/19/23 07:01 129 H 22 98 07/19/23 07:01 78/43 L 07/19/23 07:00 76/46 L 07/19/23 07:00 129 H 19 97 07/19/23 06:30 128 H 20 97 07/19/23 06:00 114 H 17 97 07/19/23 06:00 86/55 L 07/19/23 06:00 129 H 16 86/55 L 97 07/19/23 05:30 123 H 19 100 07/19/23 05:00 93/58 L 07/19/23 05:00 128 H 19 100 07/19/23 04:30 132 H 22 100 07/19/23 04:12 135 H 19 98/65 L 100 07/19/23 04:12 07/19/23 04:09 98/65 L 07/19/23 04:09 137 H 20 100 07/19/23 04:00 137 H 20 100 07/19/23 03:30 145 H 24 100 07/19/23 03:00 151 H 21 100 07/19/23 02:30 149 H 27 H 100 07/19/23 02:00 157 H 35 H 92 07/19/23 01:30 144 H 25 H 100 07/19/23 01:18 100 07/19/23 01:00 142 H 24 100 07/19/23 00:30 142 H 23 99 07/19/23 00:14 142 H 23 99 07/19/23 00:14 142 H 07/19/23 00:08 36.7 C 144 H 22 117/74 99 Pulse Ox O2 Del Method O2 Del Method 07/19/23 07:41 07/19/23 07:04 07/19/23 07:04 07/19/23 07:01 07/19/23 07:01 07/19/23 07:00 07/19/23 07:00 07/19/23 06:30 07/19/23 06:00 07/19/23 06:00 07/19/23 06:00 Room Air 07/19/23 05:30 07/19/23 05:00 07/19/23 05:00 07/19/23 04:30 07/19/23 04:12 Room Air 07/19/23 04:12 100 Room Air 07/19/23 04:09 07/19/23 04:09 07/19/23 04:00 07/19/23 03:30 07/19/23 03:00 07/19/23 02:30 07/19/23 02:00 07/19/23 01:30 07/19/23 01:18 Room Air 07/19/23 01:00 07/19/23 00:30 07/19/23 00:14 07/19/23 00:14 07/19/23 00:08 Room Air Resident Activity Tracking Resident Involvement: Resident Care Provided Care Provided: Adult Hospital Medicine (4) DKA (diabetic ketoacidosis) Diabetes mellitus type: type 1
[2023-07-19] MEDS: INSULIN ASPART PER UNIT CHARGE SC SCH (09:29)
[2023-07-19 10:26] LABS: Amphetamines+Metham, Urine Neg (Neg); Barbiturates, Urine Neg (Neg); Benzodiazepine, Urine Neg (Neg); Cocaine, Urine Neg (Neg); MDMA (Ecstacy), Urine Neg (Neg); Marijuana, Urine Pos (Neg); Methadone, Urine Neg (Neg); Opiate, Urine Neg (Neg); Phencyclidine, Urine Neg (Neg)
--- NOTE | 2023-07-19 10:59 | Pharmacy Report ---
Pharmacy Glycemic Short Note 2 - Date of Service July 19, 2023 - Glycemic Short BSG Results (Last 24 hours): 07/19/23 07/19/23 07/19/23 00:07 00:25 00:34 Glucose 708 H* POC Glucose > 600 H* POC Glucose (other) > 700 H* 07/19/23 07/19/23 07/19/23 02:09 03:01 05:12 Glucose 580 H* POC Glucose > 600 H* 217 H POC Glucose (other) 07/19/23 07/19/23 07/19/23 06:32 06:55 07:55 Glucose 270 H POC Glucose 205 H 345 H* POC Glucose (other) 07/19/23 07/19/23 09:32 10:37 Glucose POC Glucose 242 H 145 H POC Glucose (other) OUTPATIENT ANTIDIABETIC REGIMEN: * Lantus 40 units BID * Humalog 20units w/ meals * HOWEVER PATIENT REQUIRES SUBSTANTIALLY LOWER DOSES WHILE HOSPITALIZED * A1c = 10.5% 06/30/23 ASSESSMENT: * Poorly controlled type 1 diabetic (known to glycemic control service) admitted for severe DKA, possible UGIB * Initial labs: GLU 708, Na 129 (tari Na ~140), AG 38, Bicarb 6, vpH 7.09 * Patient was given fluid resuscitation and placed on IV insulin infusion per DKA protocol * Chemistry this AM shows improvement in AG acidosis (AG 26, Bicarb 9). Dextrose added to maint IVFs now that BSG down to 150-250mg/dL range. K has been added to maint IVFs as well. * Patient is not yet a candidate for transition to SQ regimen at this time. PLAN FOR INPATIENT GLYCEMIC CONTROL: * Continue IV insulin drip per protocol * May consider transition to SQ basal/bolus regimen when: * AG < 12 * Bicarb 15 or greater * BSG less than 200 * and tolerating PO diet * On prior admissions, patient has only required 20-25 units basal insulin to transition off the insulin drip.
--- OUTSIDE RECORDS SUMMARY | 2023-07-19 11:20 | External Medical Summary | Summary of Care ---
Author Name Unknown Organization [facility] Address [address] [place] [address] Phone [phone] Care Team Providers Care Casino Gaming Inspector Name Role Phone Carolyn Story MD Primary Care Provider [phone] Encounter Details Date Type Department Care Team (Late st Contact Info) Description 07/06/2023 Patient Reported Data Patient Survey Ortho [facility] Allergies Active Allergy Reactions Criticality Noted Date Comments Erythromycin 03/07/2023 documented as of this encounter (statuses as of 07/06/2023) Medications No known medicationsdocumented as of this encounter (statuses as of 07/06/2023) Active Problems No known active problems documented as of this encounter (statuses as of 07/06/2023) Social History Tobacco Use Types Packs/Day Years [...] as of this encounter Plan of Treatment Health Maintenance [...] filedocumented as of this encounter Care Teams Casino Gaming Inspector Relationship Specialty Start Date End Date Carolyn Story MD [address] [place] [address] [place] [id number] PCP - General Family Medicine 01/16/23 documented as of this encounter
[2023-07-19] MEDS: DEXTROSE 50% 50 ML SYRINGE IV ONE (12:06)
[2023-07-19 13:13] LABS: Hematocrit (blood only) 32.1 % (42.0-52.0); Hemoglobin 10.7 g/dl (14.0-18.0); Mean Corpuscular Hemoglobin 31.7 pg (25.0-34.0); Mean Corpuscular Hgb Conc 33.3 g/dL (32.0-36.0); Mean Platelet Volume 8.6 fL (9.4-12.4); Platelet Count 341 K/uL (130-400); RDW Coefficient of Variation 15.4 % (11.5-14.5); RDW Standard Deviation 53.8 fL (36.4-46.3); Red Blood Count 3.38 M/uL (4.70-6.10); White Blood Count 14.41 K/ul (4.8-10.8)
[2023-07-19 13:17] LABS: BUN Creatinine Ratio 15.2 (10-20); Creatinine Clr Calc Pharmacy 76.9 ml/min; Est GFR (Non-African American) 71.6 ml/min; Magnesium 2.4 mg/dl (1.7-2.4); Phosphorus 2.1 mg/dl (2.5-4.9); Potassium 4.5 mmol/L (3.5-5.1)
[2023-07-19 14:00] LABS: Estimated Average Glucose 240 mg/dl
--- NOTE | 2023-07-19 15:59 | Discharge Summary ---
Date of Service July 19, 2023 Admission HPI Per Admitting Provider Laron Horton is a 38-year-old male with history of diabetes type 1, frequent hospitalizations for DKA, depression and GERD presenting with ongoing illness for 5 days. Patient reports that he has had nausea, vomiting and abdominal pain for 5 days. Denies fevers, chills, cough, shortness of breath, chest pain. He reports he has been taking his insulin with no missed doses. Elevated blood sugar today by EMS at 595. Labs in the ER with large anion gap acidosis with pH = 7.09, elevated blood sugar of greater than 700. Patient with nausea and multiple episodes of emesis in the ERnoted to be coffee-ground at first, now with more red appearing blood in the bag. ER course: Protonix 80 mg IV Continuous drip Insulin drip Normal saline x 2 L Principal Diagnosis DKA Discharge Exam Patient resting in bed. Heart: Tachycardic Lungs: clear Patient has soft abdomen, NT, ND. Discharge Data Allergies Allergy/AdvReac Type Severity Reaction Status Date / Time codeine Allergy Intermediate Rash Verified 06/30/23 20:14 erythromycin base Allergy Unknown HAPPENED Verified 06/30/23 20:14 A SMALL CHILD Consultations 07/19/23 00:50 ED Decision to Admit Stat Hospital Course (1) DKA (diabetic ketoacidosis): 38-year-old male with history of poorly controlled type 1 diabetes (Last hemoglobin A1c = 10.5 on 06/30/2023), frequent hospitalizations for DKA presenting with 5 days of generalized illness with nausea, vomiting and abdominal pain. Patient presenting in severe DKA. pH on VBG = 7.09, serum bicarbonate = 6, anion gap = 38, blood glucose = 708 Has been given insulin bolus and drip as well as 2 L of IV fluids thus far. Admit to PCU -Keep patient n.p.o. -Continue aggressive IV fluids Continue insulin drip per protocol BMP, VBG, mag, Phos every 4 hours -Transition to subcutaneous insulin when anion gap is closed and patient's symptoms improve Patient was calm during my visit and resting. Later in the day, patient signed out against medical advice (2) Coffee ground emesis: Patient with ongoing nausea and vomiting. Initially appeared dark in color, pos sibly coffee-ground emesis. Now vomitus appears more red. Patient remains. Blood pressure is stable. -Maintain 2 large-bore peripheral IVs Monitor CBC. Transfuse for ongoing bleed, hemoglobin less than 7 Continue Protonix drip Zofran as needed for nausea. Repeat EKG in the morning since QT interval (slightly prolonged on initial EKG) BERNARD in setting of DKA and hypotension hypotension 86/55, Serum sodium 129, Risk Factor(s): DKA, hypotension, possible GI bleed, dehydration Treatment: 2 L IV NS bolus, Plasma-Lyte AA 1 L bolus then primary, IV insulin drip per pharmacy protocol, sliding scale insulin coverage Hyponatremia due to DKA Serum sodium 129, Risk Factor(s): DKA, dehydration Treatment: 2 L IV NS bolus, Plasma-Lyte AA 1 L bolus then primary, IV insulin drip per pharmacy protocol, sliding scale insulin coverage, Total Time Total Time Spent Total Time Spent (In Minutes): 32 Discharge Plan Discharge Items Patient Disposition: Against Medical Advice Reason For Visit: DKA Activity: Resume your previous activity Follow-up/Referrals: Carolyn Story MD [Primary Care Provider] - Stand-Alone Forms: [facility], Smoking Cessation Medications and DC Order Prescriptions: No Action (DME) lancets 33 gauge misc See Rx Instructions .Route Qty: 100 3RF Rx Instructions: check blood sugars at least 3 times a day albuterol sulfate 90 mcg/actuation HFA aerosol inhaler 2 puff inhalation Q6H PRN (Reason: shortness of breath or wheezing) Qty: 8.5 5RF (DME) OneTouch Verio test strips Strip See Rx Instructions .Route Qty: 100 1RF Rx Instructions: check blood sugar at least 3 times a day insulin lispro [Humalog KwikPen Insulin] 100 unit/mL insulin pen 20 unit subcut TID Qty: 30 1RF (DME) blood-glucose meter [OneTouch Verio Reflect Meter] Misc See Rx Instructions .Route Qty: 1 0RF Rx Instructions: check blood sugars TID sildenafil 50 mg tablet 50 mg PO DAILY PRN (Reason: sexual activity) Qty: 20 0RF Rx Instructions: administer 30 minutes to 4 hours before activity acetaminophen [Tylenol Extra Strength] 500 mg tablet 1,000 mg PO Q8 PRN (Reason: Pain) (DME) insulin syringe-needle U-100 0.3 mL 31 gauge x 15/64" syringe See Rx Instructions .Route Qty: 100 0RF Rx Instructions: As directed gabapentin 100 mg capsule 200 mg PO TID PRN (Reason: Pain) Discharge Orders: Left Against Medical Advice (Routine); Ordered 07/19/23 Ordered By: Rocco Ramírez/Other Patient Handouts: Managing Type 1 Diabetes, Diabetic Ketoacidosis Admission Data Admit Date/Time: 07/19/23 01:28 Attending Provider: Rocco Solano Admit Provider: Lara Carey Primary Care Provider: Carolyn Story Other Providers: Lara Carey Coding Level of Care Code INP/OBS EV SAME DAY LV 3,85MIN Diagnoses DKA (diabetic ketoacidosis) E11.10 Diabetes mellitus type: type 1 Coffee ground emesis K92.0
--- NOTE | 2023-07-21 09:36 | Electrocardiogram Report ---
Test Reason : Blood Pressure : / mmHG Vent. Rate : 144 BPM Atrial Rate : 144 BPM P-R Int : 128 ms QRS Dur : 078 ms QT Int : 356 ms P-R-T Axes : 062 078 050 degrees QTc Int : 551 ms Sinus tachycardia Possible Left atrial enlargement Borderline ECG When compared with ECG of 30-JUN-2023 18:29, Non-specific change in ST segment in Inferior leads T wave inversion no longer evident in Inferior leads Confirmed by Rush Laguerre ([id number]) on 07/21/2023 9:36:10 AM Referred By: REFERRED SELF Confirmed By:Rush Laguerre
--- NOTE | 2023-07-21 09:43 | Electrocardiogram Report ---
Test Reason : Blood Pressure : / mmHG Vent. Rate : 121 BPM Atrial Rate : 121 BPM P-R Int : 144 ms QRS Dur : 076 ms QT Int : 328 ms P-R-T Axes : 061 062 050 degrees QTc Int : 465 ms Sinus tachycardia Otherwise normal ECG When compared with ECG of 19-JUL-2023 00:10, No significant change was found Confirmed by Rush Laguerre ([id number]) on 07/21/2023 9:42:44 AM Referred By: REFERRED SELF Confirmed By:Rush Laguerre
[2023-07-21 13:03] LABS: Marijuana Quant, GCMS Urine 29 ng/mL (<5)
== END 2023-07-19 13:06 | disposition left against medical advice (07) | DRG 638 ==
LOC: ED 00:01 → EDINP 01:28 → SUATTDRO 01:28 → 1E 10:57

== ENCOUNTER 2023-08-20 10:57 | Inpatient (IN) ==
--- OUTSIDE RECORDS SUMMARY | 2023-08-20 10:59 | External Medical Summary | Summary of Care ---
Author Name Unknown Organization [facility] Address [address] [place] [address] Phone [phone] Care Team Providers Care Home Health Clinical Supervisor Name Role Phone Carolyn Story MD Primary Care Provider [phone] Reason for Visit * Reason Onset Date Comments Test Results 08/09/2023 Encounter Details Date Type Department Care Team (Late st Contact Info) Description 08/09/2023 Telephone Orthopaedics [facility] [address] [place] [address] Rajinder Hardy MD [address] [place] [address] Test Results Allergies Active Allergy Reactions Criticality Noted Date Comments Codeine Rash 07/24/2023 Erythromycin 03/07/2023 documented as of this encounter (statuses as of 08/09/2023) Medications Medication Sig Dispensed Refills Start Date End Date Status HumaLOG 100 UNIT/ML Subcutaneous Solution Cartridge (Insulin Lispro) Inject under the skin. 0 Active Insulin Glargine 100 UNIT/ML Subcutaneous Solution (Lantus) Inject under the skin at bedtime. 0 Active documented as of this encounter (statuses as of 08/09/2023) Active Problems No known active problems documented as of this encounter (statuses as of 08/09/2023) Social History Tobacco Use Types Packs/Day Years [...] encounter Miscellaneous Notes * Telephone Encounter - Gabriela Alvarez MED ASSIST - 08/09/2023 10:46 AM EDT Called and left message for patient to return call. * Telephone Encounter - Gabriela Alvarez MED ASSIST - 08/09/2023 10:46 AM EDT ----- Message from Rajinder Hardy MD sent at 08/09/2023 10:29 AM EDT ----- Please contact the patient. MRI result returned and I do have a follow-up scheduled with him. What I am interest up needing to see a shoulder surgeon or trauma specialist. Is he willing to go back toour team in [place] or is his plan to go outside our system and stay locally in [place]. ----- Message ----- From: Fran Rooney In Sent: 08/07/2023 3:35 PM EDT To: Rajinder Hardy MD documented in this encounter Plan of Treatment Upcoming Encounters Date Type Department Care Team (Late st Contact Info) Description 08/14/2023 2:00 PM EDT Office Visit Orthopaedics [facility] [address] [place] [address] Rajinder Hardy MD [address] [place] [address] Health Maintenance Due Date Last Done Comments Lipid Panel 1983 Pneumococcal Vaccine: Pediatrics (0 to 5 Years) and At-Risk Patients (6 to 64 Years) (1 of 2 - PCV) 07/06/1989 Depression Screening 1995 HIV Screening 07/06/1998 Hepatitis C Screening 07/06/2001 DTaP,Tdap,and Td Vaccines (1 - Tdap) 07/06/2002 Hepatitis B (1 of 3 - 19+ 3-dose series) 07/06/2002 COVID-19 Vaccine ( - 2022-2 4 season) 2022 Influenza Vaccine (FLU shot) (Season Ended) 2023 01/04/2022, 01/04/2022, 01/15/2021 GARDASIL-HPV IMMUNIZATION SERIES Aged Out No longer eligible b ased on patient's age to complete this topic MENINGOCOCCAL (MENACTRA/MENVEO) Aged Out No longer eligible b ased on patient's age to complete this topic documented as of this encounter Medical Devices Not on filedocumented as of this encounter Care Teams Home Health Clinical Supervisor Relationship Specialty Start Date End Date Carolyn Story MD [address] [place], [place] [address] [address] PCP - General Family Medicine 01/16/23 documented as of this encounter
--- OUTSIDE RECORDS SUMMARY | 2023-08-20 10:59 | External Medical Summary | Summary of Care ---
Author Name Unknown Organization [facility] Address [address] [place] [address] Phone [phone] Care Team Providers Care Charging Machine Operator Name Role Phone Carolyn Story MD Primary Care Provider [phone] Reason for Visit * Reason Comments Follow Up Pain R SHOULDER Encounter Details Date Type Department Care Team (Late st Contact Info) Description 07/24/2023 3:00 PM EDT Office Visit Orthopaedics [facility] [address] [place] [address] Rajinder Hardy MD [address] [place] [address] Shoulder injury, right, subsequent encounter* Allergies Active Allergy Reactions Criticality Noted Date Comments Codeine Rash 07/24/2023 Erythromycin 03/07/2023 documented as of this encounter (statuses as of 07/24/2023) Medications Medication Sig Dispensed Refills Start Date End Date Status HumaLOG 100 UNIT/ML Subcutaneous Solution Cartridge (Insulin Lispro) Inject under the skin. 0 Active Insulin Glargine 100 UNIT/ML Subcutaneous Solution (Lantus) Inject under the skin at bedtime. 0 Active documented as of this encounter (statuses as of 07/24/2023) Active Problems No known active problems documented as of this encounter (statuses as of 07/24/2023) Social History Tobacco Use Types Packs/Day Years [...] Progress Notes * Rajinder Hardy MD - 07/24/2023 3:08 PM EDT Laron Horton [phone] Laron Horton is a 37 year old male who [facility] Orthopa[facility]ics and Sports Medicine for right shoulder injury/pain. I saw him originally for this on 06/16/2023 Laron Horton is here unaccompanied History: Level of pain: reviewed and agree with Nursing Notes for HPI elements History on 06/16/2023 - presents today for right shoulder injury, 7-8 months ago. States he fell in the shower. Has not gone to PT, has been using weights. Right hand dominate and is on SSI. Patient was initially seen within our system in [place] by Dr. Easton on 03/07/2023. Plan was instructed to attend physical therapy. He was then to follow up with 1 of our nonsurgical Sports Medicine doctors in our area rather than [place]. She was to follow-up in 2 months. However he cancel that visit and therefore it is been nearly 4 months since he was seen. Endorses pain and poor motion Since that visit: Did not end up having his MRI as he was admitted to the hospital due to his diabetes. ROS: ROS per HPI otherwise non-contributory Social [...] respiratory effort with regular rate and rhythm Radiology (I have personally reviewed the following films): 06/16/2023: Four view x-ray of the right shoulder FINDINGS Comminuted displaced proximal humerus non articular head and neck fracture. Slight worsening of displacement and angulation with concern for nonunion. Some healing reaction is noted. Decreased diffusion and resolution of prior inferior subluxation. Degenerative changes. IMPRESSION IMPRESSION 1. As above. MRI to follow. 03/07/2023: Two-view x-ray of the right shoulder [...] injury was in September of 2022 (approximately 10 months ago) impacted subacute appearing right humeral head and neck fracture. Patient has extremely poor range of motion. Have some concern for nonunion Recommended MRI in office follow-up with myself after that MRI . As noted above he was unable to have that MRI as he missed it due to a hospital admission. Recommended the MRI be scheduled in a follow-up with me. He is aware that I will likely need to refer him to a shoulder specialist but need to see the MRI results 1st. He also aware he may end up needing a CT scan. Rajinder Hardy MD Primary Care Sports Medicine Orthopaedics [address] [address] documented in this encounter Nursing Notes * Nupur Zabala LPN - 07/24/2023 3:04 PM EDT -f/u R shoulder -Xray 06/16/23 -Pt was in the hospital and did NOT have MRI of R shoulder completed -Pt is a Diabetic -Pt stated his A1C is 7.0 as of APR 2023 -Pt is RHD -Pt is unaccompanied today -Pt c/o 6/10 pain today; Pt is unable to lean on his R shoulder or sleep on his R side -Pt denies sx, PT or injections to R shoulder Hayley Mike LPN documented in this encounter Plan of Treatment Upcoming Encounters Date Type Department Care Team (Late st Contact Info) Description 08/07/2023 1:15 PM EDT Imaging Radiology [facility] [address] [facility] [address] [place] [address] 08/14/2023 2:00 PM EDT Office Visit Orthopaedics [facility] [address] [place] [address] Rajinder Hardy MD [address] [place] [address] Health Maintenance Due Date Last Done Comments [...] encounter Visit Diagnoses Diagnosis Shoulder injury, right, subsequent encounter- Primary documented in this encounter Care Teams Charging Machine Operator Relationship Specialty Start Date End Date Carolyn Story MD [address] [place], [place] [address] [id number] PCP - General Family Medicine 01/16/23 documented as of this encounter
[2023-08-20] MEDS: SODIUM CHLORIDE 0.9% 1,000 ML IV SCH (11:00)
--- NOTE | 2023-08-20 11:11 | Emergency Department Note ---
Impression & Plan DKA (diabetic ketoacidosis), AMS (altered mental status), BERNARD (acute kidney injury) ED Provider Note NAME: HERBER VARGHESE AGE: 38 SEX: M : 1985 ARRIVES VIA: Ambulance INFORMANT: Patient, ED PROVIDER(S): Kannan Momin DO CHIEF COMPLAINT: Altered mental status HPI: The patient is a 38-year-old male who presented to the emergency department for an evaluation of altered mental status. The patient is a history of insulin-dependent diabetes but also has a history of noncompliance. The patient presented to the emergency department by ambulance after he was found by his girlfriend on the couch with fast breathing. There was no reported trauma or vomiting. There is been no reported fever. The patient was not complaining of headache or any other symptoms prior to the onset of the symptoms. ROS: See above HPI for pertinent positives & negatives. A total of 10 systems reviewed and were otherwise negative. PAST MEDICAL HISTORY: See Below PAST SURGICAL HISTORY: See Below FAMILY HISTORY: See Below SOCIAL HISTORY: See Below HOME MEDICATIONS: See Below ALLERGIES: See Below VITALS: See Below PHYSICAL EXAMINATION: GENERAL: The patient is obtunded and not answering questions. EYES: The conjunctivae are clear. The pupils are round and reactive. EARS, NOSE, MOUTH AND THROAT: The nose is without any evidence of any deformity. Mucous membranes are dry. NECK: The neck is nontender and supple. RESPIRATORY: Tachypnea was noted with clear lung sounds bilaterally. CARDIOVASCULAR: Tachycardic rate with regular rhythm was noted. There is no definite murmur. GASTROINTESTINAL: The abdomen is soft. Abdomen is nontender. MUSCULOSKELETAL/EXTREMITIES: There is no evidence of gross deformity full range of motion is noted in the hips and shoulders. SKIN: Skin is cool and dry. There is no significant edema. NEUROLOGIC: The patient is not answer questions. He is not awake to verbal or painful stimuli. He does reach for IV sites and appears to be moving both upper extremities. MEDICAL DECISION MAKING: The patient is a 38-year-old male who presented to the emergency department for an evaluation of altered mental status. The patient has a history of medication noncompliance as well as DKA. There is no reported trauma or vomiting but the patient presented to the emergency department with altered mental status. The patient was treated with IV fluids and insulin drip in the emergency department. He was reevaluated multiple times. pH was very low. I discussed the patient's laboratory and radiographic studies with the on-call [facility]. They have agreed to evaluate the patient in the emergency department for further management and disposition. Triage Nursing notes reviewed. Prior medical records reviewed Vital Signs: reviewed and remarkable for hypotension and tachycardia. Differential diagnosis: Infection, hypoglycemia, electrolyte abnormalities, overdose, toxicologic, cardiac sources, intracerebral event, neurologic, trauma, as well as other pathologies. ER treatment provided: See below Diagnostics interpreted by me: ECG: EKG was changed in the emergency department. My interpretation is sinus tachycardia 125 bpm. There is no PVCs noted. Nonspecific ST and T wave abnormalities were noted. This was compared to a tracing from July 19, 2023. No specific changes were noted. Cardiac Monitoring: An order was placed for continuous cardiac monitoring. The monitor shows a rate of 120 bpm with sinus tachycardia. Laboratory studies: As stated above and show below. Imaging studies: See below. Radiographic imaging was reviewed by myself Consultation(s): I discussed this case with Dr. Croft who is on-call for the [facility]. ED COURSE: Procedures: none Critical Care: I have personally spent greater than 45 minutes of critical care time in the direct management of this patient. This includes bedside care, interpretation of diagnostic studies, and testing, discussion with consultants, patient, and family members, and other required patient management activities. This 45 minutes is in excess of all separately billable procedures. Past Med/Surg History Medical History Fracture of proximal humerus with nonunion Poorly controlled type 1 diabetes mellitus Major depressive disorder, recurrent severe without psychotic features Medical non-compliance Surgical History No significant past surgical history Family History Other Diabetes Social History Smoking Status: Never smoker Tobacco Type: Cigarettes Cigarettes Per Day: 1 pack; Second Hand Exposure: No; Do You Dip or Chew Tobacco: No; Hx Alcohol Use: No Hx Substance Use: No Preferred Language: Icelandic Communication Ability: Impaired Visual Impairment: Limited Hearing Ability: Normal [employer] Assistant Required: No Beliefs That Will Affect Care: None marital status: Single Current Living Situation: Other Current Living Situation Comment: at home current occupational status: disabled How many Children do You have: 0 Feels Safe at Home: Yes Childhood Exposure to Second-Hand Smoke: No Diet: diabetic and regular caffeine: Yes during the past year weight has: remained stable Dental Care, Regularly: Yes Physical Activity Frequency: Daily Seatbelt Use: always Sunscreen Use: No Do you think of yourself as: straight/heterosexual Sexual Activity: has been sexually active within the last 12 months Gender Identity: Male Assistive Devices: Other Allergies Allergies Allergy/AdvReac Type Severity Reaction Status Date / Time codeine Allergy Intermediate Rash Verified 06/30/23 20:14 erythromycin base Allergy Unknown HAPPENED Verified 06/30/23 20:14 A SMALL CHILD Home Meds Home Medications Medication Instructions Recorded Confirmed acetaminophen 500 mg tablet 1,000 mg PO Q8 PRN Pain 08/19/22 07/19/23 (Tylenol Extra Strength) gabapentin 100 mg capsule 200 mg PO TID PRN Pain 06/30/23 08/20/23 Previous Rx's Medication Instructions Recorded insulin syringe-needle U-100 0.3 #100 ea 07/31/21 mL 31 gauge x 15/64" blood-glucose meter (OneTouch #1 ea 08/22/22 Verio Reflect Meter) albuterol sulfate 90 mcg/actuation 2 puff inhalation Q6H PRN 01/30/23 aerosol inhaler shortness of breath or wheezing #8.5 grams lancets 33 gauge #100 ea 01/30/23 sildenafil 50 mg tablet 50 mg PO DAILY PRN sexual activity 02/02/23 #20 tabs blood sugar diagnostic (OneTouch #100 ea 04/04/23 Verio test strips) insulin lispro 100 unit/mL 20 unit (0.2 mL) subcut TID #30 mL 07/05/23 subcutaneous pen (Humalog KwikPen (U-100) Insulin) Results & Data (ED) Vital Signs Vital Signs - 24 hr 08/20/23 10:59 08/20/23 11:22 08/20/23 11:28 Temperature 36.5 C 36.5 C Temperature Source Oral Oral Pulse Rate 123 H 119 H Pulse Rate [Apical] 125 H Pulse Strength Normal Pulse Strength [Apical] Normal Respiratory Rate 25 H 25 H 25 H Respiratory Effort / Characteristics Non-Labored Spontaneous Non-Labored Spontaneous Respiratory Depth Normal Normal Respiratory Pattern Regular Blood Pressure 99/70 L Blood Pressure [Right Arm] 102/60 Blood Pressure Mean 79 Blood Pressure Mean [Right Arm] 74 Pulse Oximetry 100 100 100 Oxygen Delivery Method Room Air Room Air Room Air Sepsis New/Unexplained Change in Mental Status Yes Sepsis Action Taken by Nursing Physician Notified 08/20/23 11:44 08/20/23 12:00 08/20/23 12:08 Temperature Temperature Source Pulse Rate 116 H Pulse Rate [Apical] 115 H 117 H Pulse Strength Pulse Strength [Apical] Respiratory Rate 22 19 Respiratory Effort / Characteristics Non-Labored Spontaneous Respiratory Depth Respiratory Pattern Blood Pressure Blood Pressure [Right Arm] 95/53 L 97/63 L Blood Pressure Mean Blood Pressure Mean [Right Arm] 67 74 Pulse Oximetry 100 100 Oxygen Delivery Method Room Air Sepsis New/Unexplained Change in Mental Status Sepsis Action Taken by Nursing 08/20/23 12:56 08/20/23 13:21 08/20/23 13:35 Temperature Temperature Source Pulse Rate Pulse Rate [Apical] 123 H 125 H 127 H Pulse Strength Pulse Strength [Apical] Respiratory Rate 22 19 19 Respiratory Effort / Characteristics Non-Labored Spontaneous Spontaneous Spontaneous Respiratory Depth Respiratory Pattern Regular Regular Regular Blood Pressure Blood Pressure [Right Arm] 100/70 96/73 L 103/53 L Blood Pressure Mean Blood Pressure Mean [Right Arm] 80 80 69 Pulse Oximetry 100 100 99 Oxygen Delivery Method Room Air Room Air Room Air Sepsis New/Unexplained Change in Mental Status Sepsis Action Taken by [facility] Medications Current Medication List: was personally reviewed by me Laboratory Data Attestation: I reviewed the patient's lab results. 08/20/23 11:06 08/20/23 11:06 Lab Results 08/20/23 08/20/23 08/20/23 Range/Units 11:06 11:06 11:06 WBC 18.12 H (4.8-10.8) K/ul RBC 3.60 L (4.70-6.10) M/uL Hgb (14.0-18.0) g/dl POC Hgb (14.0-18.0) g/dl Hct (42.0-52.0) % POC Hct (42-52) % MCV (80.0-100.0) fL MCH (25.0-34.0) pg MCHC (32.0-36.0) g/dL RDW Std Deviation (36.4-46.3) fL RDW Coeff of Margarita (11.5-14.5) % Plt Count (130-400) K/uL MPV (9.4-12.4) fL Immature Gran % (Auto) % Neut % (Auto) % Lymph % (Auto) % [place] % (Auto) % Eos % (Auto) % Baso % (Auto) % Neut # (Auto) (1.40-6.50) K/uL Lymph # (Auto) (1.20-3.40) K/uL [place] # (Auto) (0.11-0.59) K/uL Eos # (Auto) (0.00-0.50) K/uL Baso # (Auto) (0.00-0.20) K/uL Immature Gran # (Auto) (0.01-0.20) K/uL PT (9.0-12.0) Seconds INR (0.9-1.1) APTT (21-31) Seconds PTT Ratio POC pH (7.35-7.45) POC pCO2 (35-46) mmHg POC pO2 (80-95) mmHg POC HCO3 (19-24) joseph/L POC Base Excess (-9-1.8) joseph/L POC ABG O2 Sat (90-95) % VBG pH (7.36-7.41) VBG pCO2 (38-50) mmHg VBG pO2 mmHg VBG HCO3 VBG O2 Saturation % VBG Base Excess POC Sodium (135-144) mmol/L Sodium (136-145) mmol/L POC Potassium (3.3-5.0) mmol/L Potassium (3.5-5.1) mmol/L POC Chloride (101-112) mmol/L Chloride (98-107) mmol/L Carbon Dioxide (21-32) mmol/L POC Total CO2 (24-31) mmol/L Anion Gap (3-11) POC Anion Gap (16-25) mmol/L POC BUN (7-18) mg/dl BUN (6-23) mg/dl Creatinine (0.6-1.4) mg/dl POC Creatinine (0.6-1.3) mg/dl Est Cr Clr Drug Dosing ml/min Est GFR ( Amer) ml/min Est GFR (Non-Af Amer) ml/min BUN/Creatinine Ratio (10-20) Glucose (70-99(Fasting)) mg/dl POC Glucose (70-99) mg/dl POC Glucose (other) (70-99) mg/dl Osmolality (280-300) mOsm/kg Lactate (0.4-2.0) mmol/L Calcium (8.6-10.3) mg/dl POC Ioniz Calcium Zach (1.12-1.32) mmol/l Phosphorus (2.5-4.9) mg/dl Magnesium (1.7-2.4) mg/dl Total Bilirubin (0.2-1.0) mg/dl Direct Bilirubin AST (13-39) U/L ALT (7-52) U/L Alkaline Phosphatase (34-104) U/L Troponin I High Sens (0-20) pg/ml Total Protein (6.0-8.3) gm/dl Albumin (3.4-5.0) gm/dl Globulin (2.5-4.0) gm/dl Albumin/Globulin Ratio (0.9-2) Procalcitonin (0-0.5) ng/ml Urine Color Urine Appearance (Clear) Urine pH (4.5-7.5) Ur Specific Corbin (1.000-1.030) Urine Protein (Negative) Urine Glucose (UA) (Negative) Urine Ketones (Negative) Urine Blood (Negative) Urine Nitrite (Negative) Urine Bilirubin (Negative) Urine Urobilinogen (Negative) Ur Leukocyte Esterase (Negative) Urine WBC (Auto) (0-5) /hpf Urine RBC (Auto) (0-2) /hpf U Hyaline Cast (Auto) (0-2) /lpf U Epithel Cells (Auto) (0-2) /hpf Urine Bacteria (Auto) (None Seen) Ur Butalbital Confirm Urine Opiates Screen U Codeine Confrm GC/MS Ur Morphine (GC/MS) Ur Hydrocodone (GC/MS) U Norhydrocodone Conf Ur Oxycodone Screen U Noroxycodone Confirm Ur Oxycodone GC/MS U Oxymorphone GC/MS EDDP Confirm Ur Methadone, Qual Ur Methadone Ur Hydromorphone (GC/MS) Urine Barbiturates Ur Phencyclidine Scrn Ur Phencyclidine (PCP) (Neg) Urine PCP Confirm Ur Amphetamines Screen U Amphetamines Confirm U Amphetamin/Meth Scrn (Neg) Methamphetamine GC/MS MDMA (Ecstasy) Screen (Neg) Ur Amobarbital GC/MS U Pentobarbital GC/MS U Phenobarbital GC/MS U Secobarbital GC/MS U [id number] GC/MS U Benzodiazepines Scrn U 7-Aminoclonazepam Screen Ur Nordiazepam GC/MS U OH-ethylfluraz GC/MS U Lorazepam Cnf GC/MS U Oxazepam Confm GC/MS Ur Temazepam Cnf GC/MS U a-Hydroxytriaz GC/MS U [id number]-MC-[id number] Urine Cocaine Ur Cocaine Metabolite (Neg) U Cocaine Metab Confirm Tetrahydrocannabinol U Marijuana (THC) Screen Drug Screen Comment Reference Lab 08/20/23 08/20/23 08/20/23 Range/Units 11:06 11:06 11:06 WBC (4.8-10.8) K/ul RBC (4.70-6.10) M/uL Hgb 11.9 L (14.0-18.0) g/dl POC Hgb (14.0-18.0) g/dl Hct 35.0 L (42.0-52.0) % POC Hct (42-52) % MCV 101.4 H (80.0-100.0) fL MCH (25.0-34.0) pg MCHC (32.0-36.0) g/dL RDW Std Deviation (36.4-46.3) fL RDW Coeff of Margarita (11.5-14.5) % Plt Count (130-400) K/uL MPV (9.4-12.4) fL Immature Gran % (Auto) % Neut % (Auto) % Lymph % (Auto) % [place] % (Auto) % Eos % (Auto) % Baso % (Auto) % Neut # (Auto) (1.40-6.50) K/uL Lymph # (Auto) (1.20-3.40) K/uL [place] # (Auto) (0.11-0.59) K/uL Eos # (Auto) (0.00-0.50) K/uL Baso # (Auto) (0.00-0.20) K/uL Immature Gran # (Auto) (0.01-0.20) K/uL PT (9.0-12.0) Seconds INR (0.9-1.1) APTT (21-31) Seconds PTT Ratio POC pH (7.35-7.45) POC pCO2 (35-46) mmHg POC pO2 (80-95) mmHg POC HCO3 (19-24) joseph/L POC Base Excess (-9-1.8) joseph/L POC ABG O2 Sat (90-95) % VBG pH (7.36-7.41) VBG pCO2 (38-50) mmHg VBG pO2 mmHg VBG HCO3 VBG O2 Saturation % VBG Base Excess POC Sodium (135-144) mmol/L Sodium (136-145) mmol/L POC Potassium (3.3-5.0) mmol/L Potassium (3.5-5.1) mmol/L POC Chloride (101-112) mmol/L Chloride (98-107) mmol/L Carbon Dioxide (21-32) mmol/L POC Total CO2 (24-31) mmol/L Anion Gap (3-11) POC Anion Gap (16-25) mmol/L POC BUN (7-18) mg/dl BUN (6-23) mg/dl Creatinine (0.6-1.4) mg/dl POC Creatinine (0.6-1.3) mg/dl Est Cr Clr Drug Dosing ml/min Est GFR ( Amer) ml/min Est GFR (Non-Af Amer) ml/min BUN/Creatinine Ratio (10-20) Glucose (70-99(Fasting)) mg/dl POC Glucose (70-99) mg/dl POC Glucose (other) (70-99) mg/dl Osmolality (280-300) mOsm/kg Lactate (0.4-2.0) mmol/L Calcium (8.6-10.3) mg/dl POC Ioniz Calcium Zach (1.12-1.32) mmol/l Phosphorus (2.5-4.9) mg/dl Magnesium (1.7-2.4) mg/dl Total Bilirubin (0.2-1.0) mg/dl Direct Bilirubin AST (13-39) U/L ALT (7-52) U/L Alkaline Phosphatase (34-104) U/L Troponin I High Sens (0-20) pg/ml Total Protein (6.0-8.3) gm/dl Albumin (3.4-5.0) gm/dl Globulin (2.5-4.0) gm/dl Albumin/Globulin Ratio (0.9-2) Procalcitonin (0-0.5) ng/ml Urine Color Urine Appearance (Clear) Urine pH (4.5-7.5) Ur Specific [place]bin (1.000-1.030) Urine Protein (Negative) Urine Glucose (UA) (Negative) Urine Ketones (Negative) Urine Blood (Negative) Urine Nitrite (Negative) Urine Bilirubin (Negative) Urine Urobilinogen (Negative) Ur Leukocyte Esterase (Negative) Urine WBC (Auto) (0-5) /hpf Urine RBC (Auto) (0-2) /hpf U Hyaline Cast (Auto) (0-2) /lpf U Epithel Cells (Auto) (0-2) /hpf Urine Bacteria (Auto) (None Seen) Ur Butalbital Confirm Urine Opiates Screen U Codeine Confrm GC/MS Ur Morphine (GC/MS) Ur Hydrocodone (GC/MS) U Norhydrocodone Conf Ur Oxycodone Screen U Noroxycodone Confirm Ur Oxycodone GC/MS U Oxymorphone GC/MS EDDP Confirm Ur Methadone, Qual Ur Methadone Ur Hydromorphone (GC/MS) Urine Barbiturates Ur Phencyclidine Scrn Ur Phencyclidine (PCP) (Neg) Urine PCP Confirm Ur Amphetamines Screen U Amphetamines Confirm U Amphetamin/Meth Scrn (Neg) Methamphetamine GC/MS MDMA (Ecstasy) Screen (Neg) Ur Amobarbital GC/MS U Pentobarbital GC/MS U Phenobarbital GC/MS U Secobarbital GC/MS U [id number]-[id number] GC/MS U Benzodiazepines Scrn U 7-Aminoclonazepam Screen Ur Nordiazepam GC/MS U OH-ethylfluraz GC/MS U Lorazepam Cnf GC/MS U Oxazepam Confm GC/MS Ur Temazepam Cnf GC/MS U a-Hydroxytriaz GC/MS U e-HU-[id number] Urine Cocaine Ur Cocaine Metabolite (Neg) U Cocaine Metab Confirm Tetrahydrocannabinol U Marijuana (THC) Screen Drug Screen Comment Reference Lab 08/20/23 08/20/23 08/20/23 Range/Units 11:06 11:06 11:06 WBC (4.8-10.8) K/ul RBC (4.70-6.10) M/uL Hgb (14.0-18.0) g/dl POC Hgb (14.0-18.0) g/dl Hct (42.0-52.0) % POC Hct (42-52) % MCV (80.0-100.0) fL MCH 33.1 (25.0-34.0) pg MCHC 31.4 L (32.0-36.0) g/dL RDW Std Deviation 59.1 H (36.4-46.3) fL RDW Coeff of Margarita (11.5-14.5) % Plt Count (130-400) K/uL MPV (9.4-12.4) fL Immature Gran % (Auto) % Neut % (Auto) % Lymph % (Auto) % [place] % (Auto) % Eos % (Auto) % Baso % (Auto) % Neut # (Auto) (1.40-6.50) K/uL Lymph # (Auto) (1.20-3.40) K/uL [place] # (Auto) (0.11-0.59) K/uL Eos # (Auto) (0.00-0.50) K/uL Baso # (Auto) (0.00-0.20) K/uL Immature Gran # (Auto) (0.01-0.20) K/uL PT (9.0-12.0) Seconds INR (0.9-1.1) APTT (21-31) Seconds PTT Ratio POC pH (7.35-7.45) POC pCO2 (35-46) mmHg POC pO2 (80-95) mmHg POC HCO3 (19-24) joseph/L POC Base Excess (-9-1.8) joseph/L POC ABG O2 Sat (90-95) % VBG pH (7.36-7.41) VBG pCO2 (38-50) mmHg VBG pO2 mmHg VBG HCO3 VBG O2 Saturation % VBG Base Excess POC Sodium (135-144) mmol/L Sodium (136-145) mmol/L POC Potassium (3.3-5.0) mmol/L Potassium (3.5-5.1) mmol/L POC Chloride (101-112) mmol/L Chloride (98-107) mmol/L Carbon Dioxide (21-32) mmol/L POC Total CO2 (24-31) mmol/L Anion Gap (3-11) POC Anion Gap (16-25) mmol/L POC BUN (7-18) mg/dl BUN (6-23) mg/dl Creatinine (0.6-1.4) mg/dl POC Creatinine (0.6-1.3) mg/dl Est Cr Clr Drug Dosing ml/min Est GFR ( Amer) ml/min Est GFR (Non-Af Amer) ml/min BUN/Creatinine Ratio (10-20) Glucose (70-99(Fasting)) mg/dl POC Glucose (70-99) mg/dl POC Glucose (other) (70-99) mg/dl Osmolality (280-300) mOsm/kg Lactate (0.4-2.0) mmol/L Calcium (8.6-10.3) mg/dl POC Ioniz Calcium Zach (1.12-1.32) mmol/l Phosphorus (2.5-4.9) mg/dl Magnesium (1.7-2.4) mg/dl Total Bilirubin (0.2-1.0) mg/dl Direct Bilirubin AST (13-39) U/L ALT (7-52) U/L Alkaline Phosphatase (34-104) U/L Troponin I High Sens (0-20) pg/ml Total Protein (6.0-8.3) gm/dl Albumin (3.4-5.0) gm/dl Globulin (2.5-4.0) gm/dl Albumin/Globulin Ratio (0.9-2) Procalcitonin (0-0.5) ng/ml Urine Color Urine Appearance (Clear) Urine pH (4.5-7.5) Ur Specific [place]bin (1.000-1.030) Urine Protein (Negative) Urine Glucose (UA) (Negative) Urine Ketones (Negative) Urine Blood (Negative) Urine Nitrite (Negative) Urine Bilirubin (Negative) Urine Urobilinogen (Negative) Ur Leukocyte Esterase (Negative) Urine WBC (Auto) (0-5) /hpf Urine RBC (Auto) (0-2) /hpf U Hyaline Cast (Auto) (0-2) /lpf U Epithel Cells (Auto) (0-2) /hpf Urine Bacteria (Auto) (None Seen) Ur Butalbital Confirm Urine Opiates Screen U Codeine Confrm GC/MS Ur Morphine (GC/MS) Ur Hydrocodone (GC/MS) U Norhydrocodone Conf Ur Oxycodone Screen U Noroxycodone Confirm Ur Oxycodone GC/MS U Oxymorphone GC/MS EDDP Confirm Ur Methadone, Qual Ur Methadone Ur Hydromorphone (GC/MS) Urine Barbiturates Ur Phencyclidine Scrn Ur Phencyclidine (PCP) (Neg) Urine PCP Confirm Ur Amphetamines Screen U Amphetamines Confirm U Amphetamin/Meth Scrn (Neg) Methamphetamine GC/MS MDMA (Ecstasy) Screen (Neg) Ur Amobarbital GC/MS U Pentobarbital GC/MS U Phenobarbital GC/MS U Secobarbital GC/MS U [id number]-[id number] GC/MS U Benzodiazepines Scrn U 7-Aminoclonazepam Screen Ur Nordiazepam GC/MS U OH-ethylfluraz GC/MS U Lorazepam Cnf GC/MS U Oxazepam Confm GC/MS Ur Temazepam Cnf GC/MS U a-Hydroxytriaz GC/MS U l-OI-Vqovcpaiz Urine Cocaine Ur Cocaine Metabolite (Neg) U Cocaine Metab Confirm Tetrahydrocannabinol U Marijuana (THC) Screen Drug Screen Comment Reference Lab 08/20/23 08/20/23 08/20/23 Range/Units 11:06 11:06 11:06 WBC (4.8-10.8) K/ul RBC (4.70-6.10) M/uL Hgb (14.0-18.0) g/dl POC Hgb (14.0-18.0) g/dl Hct (42.0-52.0) % POC Hct (42-52) % MCV (80.0-100.0) fL MCH (25.0-34.0) pg MCHC (32.0-36.0) g/dL RDW Std Deviation (36.4-46.3) fL RDW Coeff of Margarita 16.0 H (11.5-14.5) % Plt Count 496 H (130-400) K/uL MPV 8.8 L (9.4-12.4) fL Immature Gran % (Auto) 1.2 % Neut % (Auto) 78.6 % Lymph % (Auto) 11.0 % [place] % (Auto) 8.4 % Eos % (Auto) 0.4 % Baso % (Auto) 0.4 % Neut # (Auto) 14.24 H (1.40-6.50) K/uL Lymph # (Auto) 1.99 (1.20-3.40) K/uL [place] # (Auto) 1.53 H (0.11-0.59) K/uL Eos # (Auto) 0.07 (0.00-0.50) K/uL Baso # (Auto) 0.08 (0.00-0.20) K/uL Immature Gran # (Auto) 0.21 H (0.01-0.20) K/uL PT 10.2 (9.0-12.0) Seconds INR 0.9 (0.9-1.1) APTT 26 (21-31) Seconds PTT Ratio 1.0 POC pH (7.35-7.45) POC pCO2 (35-46) mmHg POC pO2 (80-95) mmHg POC HCO3 (19-24) joseph/L POC Base Excess (-9-1.8) joseph/L POC ABG O2 Sat (90-95) % VBG pH < 7.00 L (7.36-7.41) VBG pCO2 20 L (38-50) mmHg VBG pO2 68 mmHg VBG HCO3 TNP VBG O2 Saturation 88.1 % VBG Base Excess TNP POC Sodium (135-144) mmol/L Sodium 133 L (136-145) mmol/L POC Potassium (3.3-5.0) mmol/L Potassium 6.0 H (3.5-5.1) mmol/L POC Chloride (101-112) mmol/L Chloride 92 L (98-107) mmol/L Carbon Dioxide 3 L* (21-32) mmol/L POC Total CO2 (24-31) mmol/L Anion Gap 38 H (3-11) POC Anion Gap (16-25) mmol/L POC BUN (7-18) mg/dl BUN 43 H (6-23) mg/dl Creatinine 1.76 H (0.6-1.4) mg/dl POC Creatinine (0.6-1.3) mg/dl Est Cr Clr Drug Dosing 43.1 ml/min Est GFR ( Amer) 54.8 ml/min Est GFR (Non-Af Amer) 47.3 ml/min BUN/Creatinine Ratio 24.4 H (10-20) Glucose 1281 H* (70-99(Fasting)) mg/dl POC Glucose (70-99) mg/dl POC Glucose (other) (70-99) mg/dl Osmolality 401 H* (280-300) mOsm/kg Lactate 2.6 H* (0.4-2.0) mmol/L Calcium 9.3 (8.6-10.3) mg/dl POC Ioniz Calcium Zach (1.12-1.32) mmol/l Phosphorus 10.0 H (2.5-4.9) mg/dl Magnesium 3.2 H (1.7-2.4) mg/dl Total Bilirubin 0.3 (0.2-1.0) mg/dl Direct Bilirubin TNP AST (13-39) U/L ALT (7-52) U/L Alkaline Phosphatase (34-104) U/L Troponin I High Sens (0-20) pg/ml Total Protein (6.0-8.3) gm/dl Albumin (3.4-5.0) gm/dl Globulin (2.5-4.0) gm/dl Albumin/Globulin Ratio (0.9-2) Procalcitonin (0-0.5) ng/ml Urine Color Urine Appearance (Clear) Urine pH (4.5-7.5) Ur Specific [place] (1.000-1.030) Urine Protein (Negative) Urine Glucose (UA) (Negative) Urine Ketones (Negative) Urine Blood (Negative) Urine Nitrite (Negative) Urine Bilirubin (Negative) Urine Urobilinogen (Negative) Ur Leukocyte Esterase (Negative) Urine WBC (Auto) (0-5) /hpf Urine RBC (Auto) (0-2) /hpf U Hyaline Cast (Auto) (0-2) /lpf U Epithel Cells (Auto) (0-2) /hpf Urine Bacteria (Auto) (None Seen) Ur Butalbital Confirm Urine Opiates Screen U Codeine Confrm GC/MS Ur Morphine (GC/MS) Ur Hydrocodone (GC/MS) U Norhydrocodone Conf Ur Oxycodone Screen U Noroxycodone Confirm Ur Oxycodone GC/MS U Oxymorphone GC/MS EDDP Confirm Ur Methadone, Qual Ur Methadone Ur Hydromorphone (GC/MS) Urine Barbiturates Ur Phencyclidine Scrn Ur Phencyclidine (PCP) (Neg) Urine PCP Confirm Ur Amphetamines Screen U Amphetamines Confirm U Amphetamin/Meth Scrn (Neg) Methamphetamine GC/MS MDMA (Ecstasy) Screen (Neg) Ur Amobarbital GC/MS U Pentobarbital GC/MS U Phenobarbital GC/MS U Secobarbital GC/MS U b-XY-[id number] GC/MS U Benzodiazepines Scrn U 7-Aminoclonazepam Screen Ur Nordiazepam GC/MS U OH-ethylfluraz GC/MS U Lorazepam Cnf GC/MS U Oxazepam Confm GC/MS Ur Temazepam Cnf GC/MS U a-Hydroxytriaz GC/MS U a-VW-Zxrlqptmi Urine Cocaine Ur Cocaine Metabolite (Neg) U Cocaine Metab Confirm Tetrahydrocannabinol U Marijuana (THC) Screen Drug Screen Comment Reference Lab 08/20/23 08/20/23 08/20/23 Range/Units 11:06 11:10 11:15 WBC (4.8-10.8) K/ul RBC (4.70-6.10) M/uL Hgb (14.0-18.0) g/dl POC Hgb 13.6 L (14.0-18.0) g/dl Hct (42.0-52.0) % POC Hct 40 L (42-52) % MCV (80.0-100.0) fL MCH (25.0-34.0) pg MCHC (32.0-36.0) g/dL RDW Std Deviation (36.4-46.3) fL RDW Coeff of Margarita (11.5-14.5) % Plt Count (130-400) K/uL MPV (9.4-12.4) fL Immature Gran % (Auto) % Neut % (Auto) % Lymph % (Auto) % [place] % (Auto) % Eos % (Auto) % Baso % (Auto) % Neut # (Auto) (1.40-6.50) K/uL Lymph # (Auto) (1.20-3.40) K/uL [place] # (Auto) (0.11-0.59) K/uL Eos # (Auto) (0.00-0.50) K/uL Baso # (Auto) (0.00-0.20) K/uL Immature Gran # (Auto) (0.01-0.20) K/uL PT (9.0-12.0) Seconds INR (0.9-1.1) APTT (21-31) Seconds PTT Ratio POC pH (7.35-7.45) POC pCO2 (35-46) mmHg POC pO2 (80-95) mmHg POC HCO3 (19-24) joseph/L POC Base Excess (-9-1.8) joseph/L POC ABG O2 Sat (90-95) % VBG pH (7.36-7.41) VBG pCO2 (38-50) mmHg VBG pO2 mmHg VBG HCO3 VBG O2 Saturation % VBG Base Excess POC Sodium 130 L (135-144) mmol/L Sodium (136-145) mmol/L POC Potassium 5.9 H (3.3-5.0) mmol/L Potassium (3.5-5.1) mmol/L POC Chloride 105 (101-112) mmol/L Chloride (98-107) mmol/L Carbon Dioxide (21-32) mmol/L POC Total CO2 6 L* (24-31) mmol/L Anion Gap (3-11) POC Anion Gap 27.0 H (16-25) mmol/L POC BUN 48 H (7-18) mg/dl BUN (6-23) mg/dl Creatinine (0.6-1.4) mg/dl POC Creatinine 1.3 (0.6-1.3) mg/dl Est Cr Clr Drug Dosing ml/min Est GFR ( Amer) ml/min Est GFR (Non-Af Amer) ml/min BUN/Creatinine Ratio (10-20) Glucose (70-99(Fasting)) mg/dl POC Glucose (70-99) mg/dl POC Glucose (other) > 700 H* (70-99) mg/dl Osmolality (280-300) mOsm/kg Lactate (0.4-2.0) mmol/L Calcium (8.6-10.3) mg/dl POC Ioniz Calcium Zach 1.26 (1.12-1.32) mmol/l Phosphorus (2.5-4.9) mg/dl Magnesium (1.7-2.4) mg/dl Total Bilirubin (0.2-1.0) mg/dl Direct Bilirubin 0.0 AST 29 (13-39) U/L ALT 20 (7-52) U/L Alkaline Phosphatase 194 H (34-104) U/L Troponin I High Sens 10.1 (0-20) pg/ml Total Protein 6.4 (6.0-8.3) gm/dl Albumin 3.5 (3.4-5.0) gm/dl Globulin 2.9 (2.5-4.0) gm/dl Albumin/Globulin Ratio 1.2 (0.9-2) Procalcitonin 0.20 (0-0.5) ng/ml Urine Color Yellow Urine Appearance Clear (Clear) Urine pH 5.0 (4.5-7.5) Ur Specific [place] 1.025 (1.000-1.030) Urine Protein Trace H (Negative) Urine Glucose (UA) 3+ H (Negative) Urine Ketones 4+ H (Negative) Urine Blood Negative (Negative) Urine Nitrite Negative (Negative) Urine Bilirubin Negative (Negative) Urine Urobilinogen Negative (Negative) Ur Leukocyte Esterase Negative (Negative) Urine WBC (Auto) 0-5 (0-5) /hpf Urine RBC (Auto) 0-2 (0-2) /hpf U Hyaline Cast (Auto) 3-5 H (0-2) /lpf U Epithel Cells (Auto) 0-2 (0-2) /hpf Urine Bacteria (Auto) None Seen (None Seen) Ur Butalbital Confirm Cancelled Urine Opiates Screen Cancelled U Codeine Confrm GC/MS Ur Morphine (GC/MS) Ur Hydrocodone (GC/MS) U Norhydrocodone Conf Ur Oxycodone Screen U Noroxycodone Confirm Ur Oxycodone GC/MS U Oxymorphone GC/MS EDDP Confirm Ur Methadone, Qual Ur Methadone Ur Hydromorphone (GC/MS) Urine Barbiturates Ur Phencyclidine Scrn Ur Phencyclidine (PCP) (Neg) Urine PCP Confirm Ur Amphetamines Screen U Amphetamines Confirm U Amphetamin/Meth Scrn (Neg) Methamphetamine GC/MS MDMA (Ecstasy) Screen (Neg) Ur Amobarbital GC/MS U Pentobarbital GC/MS U Phenobarbital GC/MS U Secobarbital GC/MS U u-VV-Wesycbzod GC/MS U Benzodiazepines Scrn U 7-Aminoclonazepam Screen Ur Nordiazepam GC/MS U OH-ethylfluraz GC/MS U Lorazepam Cnf GC/MS U Oxazepam Confm GC/MS Ur Temazepam Cnf GC/MS U a-Hydroxytriaz GC/MS U [id number]-Ljdedbmao Urine Cocaine Ur Cocaine Metabolite (Neg) U Cocaine Metab Confirm Tetrahydrocannabinol U Marijuana (THC) Screen Drug Screen Comment Reference Lab 08/20/23 08/20/23 08/20/23 Range/Units 11:15 11:15 11:15 WBC (4.8-10.8) K/ul RBC (4.70-6.10) M/uL Hgb (14.0-18.0) g/dl POC Hgb (14.0-18.0) g/dl Hct (42.0-52.0) % POC Hct (42-52) % MCV (80.0-100.0) fL MCH (25.0-34.0) pg MCHC (32.0-36.0) g/dL RDW Std Deviation (36.4-46.3) fL RDW Coeff of Margarita (11.5-14.5) % Plt Count (130-400) K/uL MPV (9.4-12.4) fL Immature Gran % (Auto) % Neut % (Auto) % Lymph % (Auto) % [place] % (Auto) % Eos % (Auto) % Baso % (Auto) % Neut # (Auto) (1.40-6.50) K/uL Lymph # (Auto) (1.20-3.40) K/uL [place] # (Auto) (0.11-0.59) K/uL Eos # (Auto) (0.00-0.50) K/uL Baso # (Auto) (0.00-0.20) K/uL Immature Gran # (Auto) (0.01-0.20) K/uL PT (9.0-12.0) Seconds INR (0.9-1.1) APTT (21-31) Seconds PTT Ratio POC pH (7.35-7.45) POC pCO2 (35-46) mmHg POC pO2 (80-95) mmHg POC HCO3 (19-24) joseph/L POC Base Excess (-9-1.8) joseph/L POC ABG O2 Sat (90-95) % VBG pH (7.36-7.41) VBG pCO2 (38-50) mmHg VBG pO2 mmHg VBG HCO3 VBG O2 Saturation % VBG Base Excess POC Sodium (135-144) mmol/L Sodium (136-145) mmol/L POC Potassium (3.3-5.0) mmol/L Potassium (3.5-5.1) mmol/L POC Chloride (101-112) mmol/L Chloride (98-107) mmol/L Carbon Dioxide (21-32) mmol/L POC Total CO2 (24-31) mmol/L Anion Gap (3-11) POC Anion Gap (16-25) mmol/L POC BUN (7-18) mg/dl BUN (6-23) mg/dl Creatinine (0.6-1.4) mg/dl POC Creatinine (0.6-1.3) mg/dl Est Cr Clr Drug Dosing ml/min Est GFR ( Amer) ml/min Est GFR (Non-Af Amer) ml/min BUN/Creatinine Ratio (10-20) Glucose (70-99(Fasting)) mg/dl POC Glucose (70-99) mg/dl POC Glucose (other) (70-99) mg/dl Osmolality (280-300) mOsm/kg Lactate (0.4-2.0) mmol/L Calcium (8.6-10.3) mg/dl POC Ioniz Calcium Zach (1.12-1.32) mmol/l Phosphorus (2.5-4.9) mg/dl Magnesium (1.7-2.4) mg/dl Total Bilirubin (0.2-1.0) mg/dl Direct Bilirubin AST (13-39) U/L ALT (7-52) U/L Alkaline Phosphatase (34-104) U/L Troponin I High Sens (0-20) pg/ml Total Protein (6.0-8.3) gm/dl Albumin (3.4-5.0) gm/dl Globulin (2.5-4.0) gm/dl Albumin/Globulin Ratio (0.9-2) Procalcitonin (0-0.5) ng/ml Urine Color Urine Appearance (Clear) Urine pH (4.5-7.5) Ur Specific [place] (1.000-1.030) Urine Protein (Negative) Urine Glucose (UA) (Negative) Urine Ketones (Negative) Urine Blood (Negative) Urine Nitrite (Negative) Urine Bilirubin (Negative) Urine Urobilinogen (Negative) Ur Leukocyte Esterase (Negative) Urine WBC (Auto) (0-5) /hpf Urine RBC (Auto) (0-2) /hpf U Hyaline Cast (Auto) (0-2) /lpf U Epithel Cells (Auto) (0-2) /hpf Urine Bacteria (Auto) (None Seen) Ur Butalbital Confirm Urine Opiates Screen Neg U Codeine Confrm GC/MS Cancelled Ur Morphine (GC/MS) Cancelled Ur Hydrocodone (GC/MS) Cancelled U Norhydrocodone Conf Cancelled Ur Oxycodone Screen Cancelled U Noroxycodone Confirm Cancelled Ur Oxycodone GC/MS Cancelled U Oxymorphone GC/MS Cancelled EDDP Confirm Cancelled Ur Methadone, Qual Cancelled Neg Ur Methadone Cancelled Ur Hydromorphone (GC/MS) Cancelled Urine Barbiturates Cancelled Neg Ur Phencyclidine Scrn Cancelled Ur Phencyclidine (PCP) Neg (Neg) Urine PCP Confirm Cancelled Ur Amphetamines Screen Cancelled U Amphetamines Confirm Cancelled U Amphetamin/Meth Scrn Neg (Neg) Methamphetamine GC/MS Cancelled MDMA (Ecstasy) Screen Neg (Neg) Ur Amobarbital GC/MS Cancelled U Pentobarbital GC/MS Cancelled U Phenobarbital GC/MS Cancelled U Secobarbital GC/MS Cancelled U v-HV-Vsuovxvjg GC/MS Cancelled U Benzodiazepines Scrn Cancelled U 7-Aminoclonazepam Screen Ur Nordiazepam GC/MS U OH-ethylfluraz GC/MS U Lorazepam Cnf GC/MS U Oxazepam Confm GC/MS Ur Temazepam Cnf GC/MS U a-Hydroxytriaz GC/MS U m-DU-Ydkausnvk Urine Cocaine Ur Cocaine Metabolite (Neg) U Cocaine Metab Confirm Tetrahydrocannabinol U Marijuana (THC) Screen Drug Screen Comment Reference Lab 08/20/23 08/20/23 08/20/23 Range/Units 11:15 11:15 11:40 WBC (4.8-10.8) K/ul RBC (4.70-6.10) M/uL Hgb (14.0-18.0) g/dl POC Hgb (14.0-18.0) g/dl Hct (42.0-52.0) % POC Hct (42-52) % MCV (80.0-100.0) fL MCH (25.0-34.0) pg MCHC (32.0-36.0) g/dL RDW Std Deviation (36.4-46.3) fL RDW Coeff of Margarita (11.5-14.5) % Plt Count (130-400) K/uL MPV (9.4-12.4) fL Immature Gran % (Auto) % Neut % (Auto) % Lymph % (Auto) % [place] % (Auto) % Eos % (Auto) % Baso % (Auto) % Neut # (Auto) (1.40-6.50) K/uL Lymph # (Auto) (1.20-3.40) K/uL [place] # (Auto) (0.11-0.59) K/uL Eos # (Auto) (0.00-0.50) K/uL Baso # (Auto) (0.00-0.20) K/uL Immature Gran # (Auto) (0.01-0.20) K/uL PT (9.0-12.0) Seconds INR (0.9-1.1) APTT (21-31) Seconds PTT Ratio POC pH (7.35-7.45) POC pCO2 (35-46) mmHg POC pO2 (80-95) mmHg POC HCO3 (19-24) joseph/L POC Base Excess (-9-1.8) joseph/L POC ABG O2 Sat (90-95) % VBG pH (7.36-7.41) VBG pCO2 (38-50) mmHg VBG pO2 mmHg VBG HCO3 VBG O2 Saturation % VBG Base Excess POC Sodium (135-144) mmol/L Sodium (136-145) mmol/L POC Potassium (3.3-5.0) mmol/L Potassium (3.5-5.1) mmol/L POC Chloride (101-112) mmol/L Chloride (98-107) mmol/L Carbon Dioxide (21-32) mmol/L POC Total CO2 (24-31) mmol/L Anion Gap (3-11) POC Anion Gap (16-25) mmol/L POC BUN (7-18) mg/dl BUN (6-23) mg/dl Creatinine (0.6-1.4) mg/dl POC Creatinine (0.6-1.3) mg/dl Est Cr Clr Drug Dosing ml/min Est GFR ( Amer) ml/min Est GFR (Non-Af Amer) ml/min BUN/Creatinine Ratio (10-20) Glucose (70-99(Fasting)) mg/dl POC Glucose > 600 H* (70-99) mg/dl POC Glucose (other) (70-99) mg/dl Osmolality (280-300) mOsm/kg Lactate (0.4-2.0) mmol/L Calcium (8.6-10.3) mg/dl POC Ioniz Calcium Zach (1.12-1.32) mmol/l Phosphorus (2.5-4.9) mg/dl Magnesium (1.7-2.4) mg/dl Total Bilirubin (0.2-1.0) mg/dl Direct Bilirubin AST (13-39) U/L ALT (7-52) U/L Alkaline Phosphatase (34-104) U/L Troponin I High Sens (0-20) pg/ml Total Protein (6.0-8.3) gm/dl Albumin (3.4-5.0) gm/dl Globulin (2.5-4.0) gm/dl Albumin/Globulin Ratio (0.9-2) Procalcitonin (0-0.5) ng/ml Urine Color Urine Appearance (Clear) Urine pH (4.5-7.5) Ur Specific [place] (1.000-1.030) Urine Protein (Negative) Urine Glucose (UA) (Negative) Urine Ketones (Negative) Urine Blood (Negative) Urine Nitrite (Negative) Urine Bilirubin (Negative) Urine Urobilinogen (Negative) Ur Leukocyte Esterase (Negative) Urine WBC (Auto) (0-5) /hpf Urine RBC (Auto) (0-2) /hpf U Hyaline Cast (Auto) (0-2) /lpf U Epithel Cells (Auto) (0-2) /hpf Urine Bacteria (Auto) (None Seen) Ur Butalbital Confirm Urine Opiates Screen U Codeine Confrm GC/MS Ur Morphine (GC/MS) Ur Hydrocodone (GC/MS) U Norhydrocodone Conf Ur Oxycodone Screen U Noroxycodone Confirm Ur Oxycodone GC/MS U Oxymorphone GC/MS EDDP Confirm Ur Methadone, Qual Ur Methadone Ur Hydromorphone (GC/MS) Urine Barbiturates Ur Phencyclidine Scrn Ur Phencyclidine (PCP) (Neg) Urine PCP Confirm Ur Amphetamines Screen U Amphetamines Confirm U Amphetamin/Meth Scrn (Neg) Methamphetamine GC/MS MDMA (Ecstasy) Screen (Neg) Ur Amobarbital GC/MS U Pentobarbital GC/MS U Phenobarbital GC/MS U Secobarbital GC/MS U r-AD-Gpcdarlmp GC/MS U Benzodiazepines Scrn Neg U 7-Aminoclonazepam Screen Cancelled Ur Nordiazepam GC/MS Cancelled U OH-ethylfluraz GC/MS Cancelled U Lorazepam Cnf GC/MS Cancelled U Oxazepam Confm GC/MS Cancelled Ur Temazepam Cnf GC/MS Cancelled U a-Hydroxytriaz GC/MS Cancelled U e-HC-Rjqbrdwoa Cancelled Urine Cocaine Cancelled Ur Cocaine Metabolite Neg (Neg) U Cocaine Metab Confirm Cancelled Tetrahydrocannabinol Cancelled U Marijuana (THC) Screen Cancelled Pos H Drug Screen Comment Cancelled Reference Lab Cancelled 08/20/23 08/20/23 08/20/23 Range/Units 12:47 12:49 12:56 WBC (4.8-10.8) K/ul RBC (4.70-6.10) M/uL Hgb (14.0-18.0) g/dl POC Hgb 12.9 L (14.0-18.0) g/dl Hct (42.0-52.0) % POC Hct 38 L (42-52) % MCV (80.0-100.0) fL MCH (25.0-34.0) pg MCHC (32.0-36.0) g/dL RDW Std Deviation (36.4-46.3) fL RDW Coeff of Margarita (11.5-14.5) % Plt Count (130-400) K/uL MPV (9.4-12.4) fL Immature Gran % (Auto) % Neut % (Auto) % Lymph % (Auto) % [place] % (Auto) % Eos % (Auto) % Baso % (Auto) % Neut # (Auto) (1.40-6.50) K/uL Lymph # (Auto) (1.20-3.40) K/uL [place] # (Auto) (0.11-0.59) K/uL Eos # (Auto) (0.00-0.50) K/uL Baso # (Auto) (0.00-0.20) K/uL Immature Gran # (Auto) (0.01-0.20) K/uL PT (9.0-12.0) Seconds INR (0.9-1.1) APTT (21-31) Seconds PTT Ratio POC pH (7.35-7.45) POC pCO2 (35-46) mmHg POC pO2 (80-95) mmHg POC HCO3 (19-24) joseph/L POC Base Excess (-9-1.8) joseph/L POC ABG O2 Sat (90-95) % VBG pH (7.36-7.41) VBG pCO2 (38-50) mmHg VBG pO2 mmHg VBG HCO3 VBG O2 Saturation % VBG Base Excess POC Sodium 134 L (135-144) mmol/L Sodium (136-145) mmol/L POC Potassium 5.3 H (3.3-5.0) mmol/L Potassium (3.5-5.1) mmol/L POC Chloride 109 (101-112) mmol/L Chloride (98-107) mmol/L Carbon Dioxide (21-32) mmol/L POC Total CO2 6 L* (24-31) mmol/L Anion Gap (3-11) POC Anion Gap 25.0 (16-25) mmol/L POC BUN 45 H (7-18) mg/dl BUN (6-23) mg/dl Creatinine (0.6-1.4) mg/dl POC Creatinine 1.2 (0.6-1.3) mg/dl Est Cr Clr Drug Dosing ml/min Est GFR ( Amer) ml/min Est GFR (Non-Af Amer) ml/min BUN/Creatinine Ratio (10-20) Glucose (70-99(Fasting)) mg/dl POC Glucose > 600 H* (70-99) mg/dl POC Glucose (other) > 700 H* (70-99) mg/dl Osmolality (280-300) mOsm/kg Lactate 2.6 H* (0.4-2.0) mmol/L Calcium (8.6-10.3) mg/dl POC Ioniz Calcium Zach 1.28 (1.12-1.32) mmol/l Phosphorus (2.5-4.9) mg/dl Magnesium (1.7-2.4) mg/dl Total Bilirubin (0.2-1.0) mg/dl Direct Bilirubin AST (13-39) U/L ALT (7-52) U/L Alkaline Phosphatase (34-104) U/L Troponin I High Sens (0-20) pg/ml Total Protein (6.0-8.3) gm/dl Albumin (3.4-5.0) gm/dl Globulin (2.5-4.0) gm/dl Albumin/Globulin Ratio (0.9-2) Procalcitonin (0-0.5) ng/ml Urine Color Urine Appearance (Clear) Urine pH (4.5-7.5) Ur Specific [place] (1.000-1.030) Urine Protein (Negative) Urine Glucose (UA) (Negative) Urine Ketones (Negative) Urine Blood (Negative) Urine Nitrite (Negative) Urine Bilirubin (Negative) Urine Urobilinogen (Negative) Ur Leukocyte Esterase (Negative) Urine WBC (Auto) (0-5) /hpf Urine RBC (Auto) (0-2) /hpf U Hyaline Cast (Auto) (0-2) /lpf U Epithel Cells (Auto) (0-2) /hpf Urine Bacteria (Auto) (None Seen) Ur Butalbital Confirm Urine Opiates Screen U Codeine Confrm GC/MS Ur Morphine (GC/MS) Ur Hydrocodone (GC/MS) U Norhydrocodone Conf Ur Oxycodone Screen U Noroxycodone Confirm Ur Oxycodone GC/MS U Oxymorphone GC/MS EDDP Confirm Ur Methadone, Qual Ur Methadone Ur Hydromorphone (GC/MS) Urine Barbiturates Ur Phencyclidine Scrn Ur Phencyclidine (PCP) (Neg) Urine PCP Confirm Ur Amphetamines Screen U Amphetamines Confirm U Amphetamin/Meth Scrn (Neg) Methamphetamine GC/MS MDMA (Ecstasy) Screen (Neg) Ur Amobarbital GC/MS U Pentobarbital GC/MS U Phenobarbital GC/MS U Secobarbital GC/MS U n-JJ-Lyikjsazh GC/MS U Benzodiazepines Scrn U 7-Aminoclonazepam Screen Ur Nordiazepam GC/MS U OH-ethylfluraz GC/MS U Lorazepam Cnf GC/MS U Oxazepam Confm GC/MS Ur Temazepam Cnf GC/MS U a-Hydroxytriaz GC/MS U o-PY-Ecelcrtqt Urine Cocaine Ur Cocaine Metabolite (Neg) U Cocaine Metab Confirm Tetrahydrocannabinol U Marijuana (THC) Screen Drug Screen Comment Reference Lab 08/20/23 08/20/23 Range/Units 13:34 13:43 WBC (4.8-10.8) K/ul RBC (4.70-6.10) M/uL Hgb (14.0-18.0) g/dl POC Hgb 12.6 L (14.0-18.0) g/dl Hct (42.0-52.0) % POC Hct 37 L (42-52) % MCV (80.0-100.0) fL MCH (25.0-34.0) pg MCHC (32.0-36.0) g/dL RDW Std Deviation (36.4-46.3) fL RDW Coeff of Margarita (11.5-14.5) % Plt Count (130-400) K/uL MPV (9.4-12.4) fL Immature Gran % (Auto) % Neut % (Auto) % Lymph % (Auto) % [place] % (Auto) % Eos % (Auto) % Baso % (Auto) % Neut # (Auto) (1.40-6.50) K/uL Lymph # (Auto) (1.20-3.40) K/uL [place] # (Auto) (0.11-0.59) K/uL Eos # (Auto) (0.00-0.50) K/uL Baso # (Auto) (0.00-0.20) K/uL Immature Gran # (Auto) (0.01-0.20) K/uL PT (9.0-12.0) Seconds INR (0.9-1.1) APTT (21-31) Seconds PTT Ratio POC pH 6.97 L* (7.35-7.45) POC pCO2 13 L (35-46) mmHg POC pO2 122 H (80-95) mmHg POC HCO3 3 L (19-24) joseph/L POC Base Excess -29.0 L (-9-1.8) joseph/L POC ABG O2 Sat 96.0 H (90-95) % VBG pH (7.36-7.41) VBG pCO2 (38-50) mmHg VBG pO2 mmHg VBG HCO3 VBG O2 Saturation % VBG Base Excess POC Sodium 134 L (135-144) mmol/L Sodium (136-145) mmol/L POC Potassium 4.8 (3.3-5.0) mmol/L Potassium (3.5-5.1) mmol/L POC Chloride (101-112) mmol/L Chloride (98-107) mmol/L Carbon Dioxide (21-32) mmol/L POC Total CO2 < 5 L* (24-31) mmol/L Anion Gap (3-11) POC Anion Gap (16-25) mmol/L POC BUN (7-18) mg/dl BUN (6-23) mg/dl Creatinine (0.6-1.4) mg/dl POC Creatinine (0.6-1.3) mg/dl Est Cr Clr Drug Dosing ml/min Est GFR ( Amer) ml/min Est GFR (Non-Af Amer) ml/min BUN/Creatinine Ratio (10-20) Glucose (70-99(Fasting)) mg/dl POC Glucose > 600 H* (70-99) mg/dl POC Glucose (other) (70-99) mg/dl Osmolality (280-300) mOsm/kg Lactate (0.4-2.0) mmol/L Calcium (8.6-10.3) mg/dl POC Ioniz Calcium Zach (1.12-1.32) mmol/l Phosphorus (2.5-4.9) mg/dl Magnesium (1.7-2.4) mg/dl Total Bilirubin (0.2-1.0) mg/dl Direct Bilirubin AST (13-39) U/L ALT (7-52) U/L Alkaline Phosphatase (34-104) U/L Troponin I High Sens (0-20) pg/ml Total Protein (6.0-8.3) gm/dl Albumin (3.4-5.0) gm/dl Globulin (2.5-4.0) gm/dl Albumin/Globulin Ratio (0.9-2) Procalcitonin (0-0.5) ng/ml Urine Color Urine Appearance (Clear) Urine pH (4.5-7.5) Ur Specific [place] (1.000-1.030) Urine Protein (Negative) Urine Glucose (UA) (Negative) Urine Ketones (Negative) Urine Blood (Negative) Urine Nitrite (Negative) Urine Bilirubin (Negative) Urine Urobilinogen (Negative) Ur Leukocyte Esterase (Negative) Urine WBC (Auto) (0-5) /hpf Urine RBC (Auto) (0-2) /hpf U Hyaline Cast (Auto) (0-2) /lpf U Epithel Cells (Auto) (0-2) /hpf Urine Bacteria (Auto) (None Seen) Ur Butalbital Confirm Urine Opiates Screen U Codeine Confrm GC/MS Ur Morphine (GC/MS) Ur Hydrocodone (GC/MS) U Norhydrocodone Conf Ur Oxycodone Screen U Noroxycodone Confirm Ur Oxycodone GC/MS U Oxymorphone GC/MS EDDP Confirm Ur Methadone, Qual Ur Methadone Ur Hydromorphone (GC/MS) Urine Barbiturates Ur Phencyclidine Scrn Ur Phencyclidine (PCP) (Neg) Urine PCP Confirm Ur Amphetamines Screen U Amphetamines Confirm U Amphetamin/Meth Scrn (Neg) Methamphetamine GC/MS MDMA (Ecstasy) Screen (Neg) Ur Amobarbital GC/MS U Pentobarbital GC/MS U Phenobarbital GC/MS U Secobarbital GC/MS U f-VY-Nuxdoakld GC/MS U Benzodiazepines Scrn U 7-Aminoclonazepam Screen Ur Nordiazepam GC/MS U OH-ethylfluraz GC/MS U Lorazepam Cnf GC/MS U Oxazepam Confm GC/MS Ur Temazepam Cnf GC/MS U a-Hydroxytriaz GC/MS U i-JO-Bmkkpaytx Urine Cocaine Ur Cocaine Metabolite (Neg) U Cocaine Metab Confirm Tetrahydrocannabinol U Marijuana (THC) Screen Drug Screen Comment Reference Lab Administered Medications Insulin Human Regular 250 (units/ Sodium Chloride) 250 mls @ 9.1 mls/hr IV .Q24H RISSA; Protocol Stop: 09/19/23 11:14 Last Titration: 08/20/23 13:48 Dose: 9.1 units/hr, 9.1 mls/hr Documented By: KEL Co-signed By: NOLA Titration: 08/20/23 12:51 Dose: 7.6 units/hr, 7.6 mls/hr Documented By: KEL Co-signed By: ADALBERTO Admin: 08/20/23 11:41 Dose: 6.3 units/hr, 6.3 mls/hr Documented By: KEL Co-signed By: ADALBERTO Discontinued Medications Sodium Chloride (Nss) 1,000 mls @ 999 mls/hr IV .Q1H1M RISSA Stop: 08/20/23 13:00 Last Infusion: 08/20/23 12:30 Dose: 0 mls/hr Documented By: Admin: 08/20/23 11:37 Dose: 999 mls/hr Documented By: Infusion: 08/20/23 11:37 Dose: Infused Documented By: Admin: 08/20/23 11:00 Dose: 999 mls/hr Documented By: KEL Lactated Ringer's (Lr) 1,000 mls @ 999 mls/hr IV .Q1H1M ONE Stop: 08/20/23 12:56 Last Infusion: 08/20/23 13:20 Dose: Infused Documented By: Admin: 08/20/23 11:59 Dose: 999 mls/hr Documented By: KEL Calcium Gluconate () 1,000 mg in 60 mls @ 240 mls/hr IV NOW STA Stop: 08/20/23 12:30 Last Infusion: 08/20/23 13:20 Dose: Infused Documented By: Admin: 08/20/23 12:42 Dose: 240 mls/hr Documented By: KEL Lactated Ringer's (Lr) 1,000 mls @ 250 mls/hr IV .Q4H RISSA Stop: 08/20/23 20:29 Last Admin: 08/20/23 13:20 Dose: Not Given Documented By: KEL Lactated Ringer's (Lr) 1,000 mls @ 200 mls/hr IV .Q5H RISSA Stop: 09/19/23 12:44 Last Admin: 08/20/23 13:01 Dose: 200 mls/hr Documented By: KEL Imaging Data Attestation: I personally reviewed and interpreted this imaging study as follows: My Impression: 1 view chest x-ray was obtained in the emergency department. My interpretation is no free air or definite infiltrate, final report below. CT of the brain was obtained in the emergency department. My interpretation is no intracranial hemorrhage or mass effect, final report below. Radiologist's Impression: Chest X-Ray 08/20/23 10:59 XR chest 1V portable CLINICAL HISTORY: Sepsis TECHNIQUE: Single frontal radiograph of the chest was obtained. Comparison: Comparison is made to chest radiograph 07/19/2023 FINDINGS: No lines and tubes are seen. The cardiomediastinal silhouette is normal. The lungs are clear. No evidence of pleural effusion or pneumothorax. IMPRESSION: No acute abnormalities and in particular no radiographic evidence of pneumonia. ACT 112: Negative or not required by law. Electronically signed by: Jeanmarie Reeves M.D. 08/20/2023 11:[address] 08/20/23 12:07 CT head/brain wo con CLINICAL HISTORY: unresponsive, poorly responsive L pupil Technique: Contiguous axial CT images of the head were acquired from the base of the skull to the vertex without intravenous contrast administration. Images were viewed in brain, subdural and bone windows. Automated dose lowering techniques and/or adjustment according to patient size were utilized for this exam. Comparison: Comparison is made to CT head 05/15/2022 Findings: Areas of decreased attenuation are present in the periventricular and subcortical white matter bilaterally consistent with small vessel ischemic disease. Generalized cerebral atrophy with commensurate enlargement of the ventricles, sulci, and cisterns is also present. There is no acute intracranial hemorrhage or evidence of acute territorial infarction. No shift of the midline structures, mass effect, or extra-axial abnormalities are shown. Atherosclerotic calcifications are present in the intracranial segments of the internal carotid arteries. Imaged portions of the paranasal sinuses and mastoid air cells are clear. The orbits appear normal. There are no acute fractures of the calvaria or scalp swelling. Impression: No acute intracranial hemorrhage, no evidence of acute territorial infarction or other acute intracranial disease process. ACT 112: Negative or not required by law. Electronically signed by: Jeanmarie Reeves M.D. 08/20/2023 1:15 PM Discharge Plan Visit Data Chief Complaint: Unresponsive Stated Complaint: HYPERGLYCEMIA, UNRESP ED Provider: Kannan Momin Discharge Problem: DKA (diabetic ketoacidosis), AMS (altered mental status), BERNARD (acute kidney injury) Patient Disposition: Being Evaluated by Hospitalist Forms Stand Alone Forms: My [facility] [place] [employer] Prescriptions Prescriptions: No Action (DME) lancets 33 gauge misc See Rx Instructions .Route Qty: 100 3RF Rx Instructions: check blood sugars at least 3 times a day albuterol sulfate 90 mcg/actuation HFA aerosol inhaler 2 puff inhalation Q6H PRN (Reason: shortness of breath or wheezing) Qty: 8.5 5RF (DME) OneTouch Verio test strips Strip See Rx Instructions .Route Qty: 100 1RF Rx Instructions: check blood sugar at least 3 times a day insulin lispro [Humalog KwikPen Insulin] 100 unit/mL insulin pen 20 unit subcut TID Qty: 30 1RF (DME) blood-glucose meter [OneTouch Verio Reflect Meter] Misc See Rx Instructions .Route Qty: 1 0RF Rx Instructions: check blood sugars TID sildenafil 50 mg tablet 50 mg PO DAILY PRN (Reason: sexual activity) Qty: 20 0RF Rx Instructions: administer 30 minutes to 4 hours before activity acetaminophen [Tylenol Extra Strength] 500 mg tablet 1,000 mg PO Q8 PRN (Reason: Pain) (DME) insulin syringe-needle U-100 0.3 mL 31 gauge x 15/64" syringe See Rx Instructions .Route Qty: 100 0RF Rx Instructions: As directed gabapentin 100 mg capsule 200 mg PO TID PRN (Reason: Pain) Referrals Referrals: Carolyn Story MD [Primary Care Provider] - Discharge Problem: DKA (diabetic ketoacidosis) Qualifiers: Diabetes mellitus type: type 1 Diabetes mellitus complication detail: with coma Qualified Code(s): E10.11 - Type 1 diabetes mellitus with ketoacidosis with coma AMS (altered mental status) Qualifiers: Altered mental status type: unspecified Qualified Code(s): R41.82 - Altered mental status, unspecified
[2023-08-20] MEDS ORDERED: GLUCOSE 40% GEL 15 GM TUBE PO PRN (11:14)
[2023-08-20] MEDS ORDERED: CARBOHYDRATES FOR HYPOGLYCEMIA PO PRN (11:14)
[2023-08-20] MEDS ORDERED: STAT IV Infusion **Titration per Protocol STA ×2 (11:14→16:01)
[2023-08-20] MEDS ORDERED: GLUCAGON FOR INJ 1 MG VIAL SQ PRN (11:14)
[2023-08-20] MEDS ORDERED: GLUCOSE 10 TAB/TUBE PO PRN (11:14)
[2023-08-20 11:23] LABS: iSTAT Blood Urea Nitrogen 48 mg/dl (7-18); iSTAT Carbon Dioxide 6 mmol/L (24-31); iSTAT Chloride 105 mmol/L (101-112); iSTAT Creatinine 1.3 mg/dl (0.6-1.3); iSTAT Glucose > 700 mg/dl (70-99); iSTAT Hematocrit 40 % (42-52); iSTAT Hemoglobin 13.6 g/dl (14.0-18.0); iSTAT Ionized Calcium 1.26 mmol/l (1.12-1.32); iSTAT Potassium 5.9 mmol/L (3.3-5.0); iSTAT Sodium 130 mmol/L (135-144)
[2023-08-20 11:34] LABS: INR 0.9 (0.9-1.1); Partial Thromboplastin Time 26 Seconds (21-31); Prothrombin Time 10.2 Seconds (9.0-12.0)
[2023-08-20 11:40] LABS: Oxygen Saturation VBG 88.1 %; PCO2 VBG 20 mmHg (38-50); PO2 VBG 68 mmHg; pH VBG < 7.00 (7.36-7.41)
[2023-08-20] MEDS: INSULIN REGULAR 250 UNITS in SODIUM CHLORIDE 0.9% 247.5 ML IV SCH (11:41)
--- NOTE | 2023-08-20 11:43 | XRay Report ---
XR chest 1V portable CLINICAL HISTORY: Sepsis TECHNIQUE: Single frontal radiograph of the chest was obtained. Comparison: Comparison is made to chest radiograph 07/19/2023 FINDINGS: No lines and tubes are seen. The cardiomediastinal silhouette is normal. The lungs are clear. No evid ence of pleural effusion or pneumothorax. IMPRESSION: No acute abnormalities and in particular no radiographic evidence of pneumonia. ACT 112: Negative or not required by law. Electronically signed by: Jeanmarie Reeves M.D. 08/20/2023 11:40 AM
[2023-08-20 11:48] LABS: Appearance Urine Clear (Clear); Bacteria Urine Automated None Seen (None Seen); Bilirubin Urine Negative (Negative); Blood Urine Negative (Negative); Color Urine Yellow; Epithelial Cell Urine Auto 0-2 /hpf (0-2); Glucose Urine UA 3+ (Negative); Ketones Urine 4+ (Negative); Leukocyte Esterase Urine Negative (Negative); Nitrite Urine Negative (Negative); Protein Urine Trace (Negative); RBC Urine Automated 0-2 /hpf (0-2); Specific Gravity Urine 1.025 (1.000-1.030); Urobilinogen Urine Negative (Negative); WBC Urine Automated 0-5 /hpf (0-5)
[2023-08-20 11:54] LABS: Alanine Aminotransferase 20 U/L (7-52); Albumin Globulin Ratio 1.2 (0.9-2); Albumin Level 3.5 gm/dl (3.4-5.0); Alkaline Phosphatase 194 U/L (34-104); Anion Gap 38 (3-11); Aspartate Aminotransferase 29 U/L (13-39); BUN Creatinine Ratio 24.4 (10-20); Bilirubin,Total 0.3 mg/dl (0.2-1.0); Blood Urea Nitrogen 43 mg/dl (6-23); Calcium 9.3 mg/dl (8.6-10.3); Carbon Dioxide 3 mmol/L (21-32); Chloride 92 mmol/L (98-107); Creatinine Clr Calc Pharmacy 43.1 ml/min; Est GFR (African American) 54.8 ml/min; Est GFR (Non-African American) 47.3 ml/min; Globulin 2.9 gm/dl (2.5-4.0); Magnesium 3.2 mg/dl (1.7-2.4); Sodium 133 mmol/L (136-145); Total Protein 6.4 gm/dl (6.0-8.3); Troponin I High Sensitivity 10.1 pg/ml (0-20)
[2023-08-20] MEDS: LACTATED RINGER'S 1,000 ML IV ONE (11:59)
[2023-08-20 12:14] LABS: Glucose 1281 mg/dl (70-99(Fasting))
--- NOTE | 2023-08-20 12:18 | History & Physical Report ---
Date of Service August 20, 2023 Assessment & Plan (1) Unresponsive: Plan: Patient found unresponsive by his girlfriend 08/19. Had had similar appearing episodes with DKA in the past with medication noncompliance Suspect due to DKA Girlfriend is not available at the bedside at time of admitting assessment, and call goes to voicemail. Unable to obtain additional collateral at time of admission Patient initially with implant coordinator small breathing, respirations improved following fluid resuscitation. Patient does not awaken for exam or follow commands. Does withdraw to noxious stimuli/thumb pinch of the right and left arm. Pupils are sluggish, left pupil asymmetrically dilated and poorly reactive on initial assessment. As he was found unresponsive with no collateral available, CThead obtained U tox pending, no history of recreational drug abuse (2) DKA, type 1: Plan: DKA At time of hospitalist consultation/assessment has completed 2 L of saline infusion and is midway through 1/3 L of crystalloid resuscitation with LR Unclear provoking factor, has had episodes provoked both by noncompliance and sepsis in the past. Procalcitonin is normal. Chest x-ray is without abnormalities. UA does not appear infected. White count is pending at time of admission VBG <7.0//undetectable bicarb. Bicarb on BMP 3. Discussed with ICU, do not recommend bicarb at this time - Bernard on admit. Admitting BSG 1281. Gap 38. Bicarb 3. pH <7.0. potassium 6.0 lactate 2.6. Phosphorus 10. Mag 3.2. Serum osmolality 401, osmolar gap is normal. No evidence of secondary substance ingestion precipitating DKA on admit. UA without evidence of infection. Chest x-ray does not show evidence of aspiration/pneumonia. Initial VBG 7.0//undetectable bicarb Insulin gtt DKA goal parameters Patient is finishing 3 L of initial crystalloid resuscitation. Will switch to maintenance fluids at 200 cc/h. Adjust fluid rate based on BSG trend. Once potassium normalizes switch to LR +20 mEq KCl Once BSG within range [id number], switch to D5 half-normal saline +40 mEq KCl Potassium 6.0. EKG with peaked appearing T waves. 1 amp of calcium given. Troponin is normal. EKG is sinus with no territorial ST segment changes, no territorial T wave changes? Lead III T wave inversion. Patient likely with demand ischemia with DKA. (3) BERNARD (acute kidney injury): Plan: Baseline renal function less than 1.27, elevated at 1.76 with profound volume contraction with DKA Fluid resuscitation as noted Trend BMP daily (4) History of GI bleed: Plan: History of GI bleed History of bright red blood per rectum and coffee-ground emesis. Will continue PPI push twice daily Hemoglobin is uptrending compared to prior, 11.9 from 10.7 No evidence of emesis on admit and clinical exam Trend hemoglobin, PPI IV push daily for prophylaxis continued (5) Diabetic foot ulcer associated with type 1 diabetes mellitus: (6) Medical non-compliance: Plan: Patient with history of AMA discharges, medication noncompliance (7) Admitted to intensive care unit: Plan DVT prophylaxis: Heparin Disposition: ICU CODE STATUS: Full code, unable to discuss with patient at time of admission due to mental status Diet: N.p.o. until mentation improved, pH greater than 7.3, bicarb greater than 18, anion gap normal, and BSG less than 250. History of Present Illness Primary Care Provider: Carolyn Story MD Laron is a 38-year-old male with a history of type I DM with recent admissions for DKA in the setting of medication noncompliance, GERD, tobacco abuse, MDD who was found unresponsive on his couch by his significant other this morning who contacted EMS. Patient last known well was last night. Family not present for collateral at time of admitting H&P. Brought in by ambulance after being found unresponsive by his girlfriend. Patient is not able to give collateral, is obtunded. Attempted to contact patient's primary contact Kesly Rosa [phone] for collateral, no answer. Last admission for DKA was in the setting of influenza A with nausea/vomiting. No reported history of recreational drug use Medical History: Reviewed in EMR Medications: Reviewed in EMR Surgical History: Reviewed in EMR Family history: Reviewed in EMR Allergies: Reviewed in EMR Social History: Reviewed in EMR Code Status: Full Allergies Allergy/AdvReac Type Severity Reaction Status Date / Time codeine Allergy Intermediate Rash Verified 06/30/23 20:14 erythromycin base Allergy Unknown HAPPENED Verified 06/30/23 20:14 A SMALL CHILD Home Medications Medication Instructions Recorded Confirmed Type insulin syringe-needle U-100 0.3 #100 ea 07/31/21 07/19/23 Rx mL 31 gauge x 15/64" acetaminophen 500 mg tablet 1,000 mg PO Q8 PRN Pain 08/19/22 07/19/23 History (Tylenol Extra Strength) blood-glucose meter (OneTouch #1 ea 08/22/22 07/19/23 Rx Verio Reflect Meter) albuterol sulfate 90 mcg/actuation 2 puff inhalation Q6H PRN 01/30/23 08/20/23 Rx aerosol inhaler shortness of breath or wheezing #8.5 grams lancets 33 gauge #100 ea 01/30/23 07/19/23 Rx sildenafil 50 mg tablet 50 mg PO DAILY PRN sexual activity 02/02/23 08/20/23 Rx #20 tabs blood sugar diagnostic (OneTouch #100 ea 04/04/23 07/19/23 Rx Verio test strips) gabapentin 100 mg capsule 200 mg PO TID PRN Pain 06/30/23 08/20/23 History insulin lispro 100 unit/mL 20 unit (0.2 mL) subcut TID #30 mL 07/05/23 08/20/23 Rx subcutaneous pen (Humalog KwikPen (U-100) Insulin) Past Med/Surg History Medical History Fracture of proximal humerus with nonunion Poorly controlled type 1 diabetes mellitus Major depressive disorder, recurrent severe without psychotic features Medical non-compliance Surgical History No significant past surgical history Family History Other Diabetes Social History Smoking Status: Never smoker Tobacco Type: Cigarettes Cigarettes Per Day: 1 pack; Second Hand Exposure: No; Do You Dip or Chew Tobacco: No; Hx Alcohol Use: No Hx Substance Use: No Preferred Language: Maori Communication Ability: Impaired Visual Impairment: Limited Hearing Ability: Normal Academic Support Assistant Required: No Beliefs That Will Affect Care: None marital status: Single Current Living Situation: Other Current Living Situation Comment: at home current occupational status: disabled How many Children do You have: 0 Feels Safe at Home: Yes Childhood Exposure to Second-Hand Smoke: No Diet: diabetic and regular caffeine: Yes during the past year weight has: remained stable Dental Care, Regularly: Yes Physical Activity Frequency: Daily Seatbelt Use: always Sunscreen Use: No Do you think of yourself as: straight/heterosexual Sexual Activity: has been sexually active within the last 12 months Gender Identity: Male Assistive Devices: Other Physical Exam Physical Exam: General: Severely volume contracted, does not answer questions and is obtunded. Withdraws to some pinch bilaterally. Does not answer questions or follow commands HEENT: Atraumatic, normocephalic. Pupils sluggish, left pupil proximately 5 mm and more poorly reactive to light compared to the right. Pulm: Tachypneic, slightly improved on second reassessment. Lungs are closely clear. Initially w/ Kaussmaul breathing, improved on reassment post fluids. Cardiac: Tachycardic, regular. Radial pulses intact and symmetrical. Abdominal: Soft and without guarding Extremities: warm, dry Results & Data Results & Data Vital Signs (Past 12 Hours) Vital Signs Temp Pulse Pulse Resp BP BP Pulse Ox 08/20/23 12:08 116 H 08/20/23 12:00 117 H 19 97/63 L 100 08/20/23 11:44 115 H 22 95/53 L 100 08/20/23 11:28 119 H 25 H 100 08/20/23 11:22 36.5 C 125 H 25 H 102/60 100 08/20/23 10:59 36.5 C 123 H 25 H 99/70 L 100 O2 Del Method 08/20/23 12:08 08/20/23 12:00 Room Air 08/20/23 11:44 08/20/23 11:28 Room Air 08/20/23 11:22 Room Air 08/20/23 10:59 Room Air PG Care Time/CCT Total # of Minutes Spent Total Time Spent with Patient: Total time spent is greater than 50% in coordination of care (as documented) at patient's floor/unit and/or counseling patient: Coding Level of Care Code 37516 INT INP/OBS CARE 3/75MIN Diagnoses Unresponsive R41.89 DKA, type 1 E10.10 Diabetes mellitus complication detail: without coma BERNARD (acute kidney injury) N17.9 History of GI bleed Z87.19 Diabetic foot ulcer associated with type 1 diabetes mellitus E10.621; L97.509 Medical non-compliance Z91.199 Admitted to intensive care unit Z78.9 (2) DKA, type 1 Diabetes mellitus complication detail: without coma Qualified Code(s): E10.10 - Type 1 diabetes mellitus with ketoacidosis without coma
[2023-08-20] MEDS: CALCIUM GLUCONATE 1,000 MG/60 ML BAG IV STA (12:42)
[2023-08-20 12:58] LABS: Hemoglobin 11.9 g/dl (14.0-18.0); Mean Corpuscular Hemoglobin 33.1 pg (25.0-34.0); Mean Corpuscular Hgb Conc 31.4 g/dL (32.0-36.0); Mean Corpuscular Volume 101.4 fL (80.0-100.0); Mean Platelet Volume 8.8 fL (9.4-12.4); Platelet Count 496 K/uL (130-400); RDW Standard Deviation 59.1 fL (36.4-46.3); White Blood Count 18.12 K/ul (4.8-10.8)
[2023-08-20 13:01] LABS: Basophils # (auto) 0.08 K/uL (0.00-0.20); Basophils % (auto) 0.4 %; Eosinophils # (auto) 0.07 K/uL (0.00-0.50); Eosinophils % (auto) 0.4 %; Immature Granulocytes # (auto) 0.21 K/uL (0.01-0.20); Immature Granulocytes % (auto) 1.2 %; Lymphocytes # (auto) 1.99 K/uL (1.20-3.40); Monocytes # (auto) 1.53 K/uL (0.11-0.59); Monocytes % (auto) 8.4 %; Neutrophils # (auto) 14.24 K/uL (1.40-6.50); Neutrophils % (auto) 78.6 %
[2023-08-20] MEDS: LACTATED RINGER'S 1,000 ML IV SCH ×2 (13:01→13:20)
[2023-08-20 13:03] LABS: iSTAT Blood Urea Nitrogen 45 mg/dl (7-18); iSTAT Carbon Dioxide 6 mmol/L (24-31); iSTAT Chloride 109 mmol/L (101-112); iSTAT Creatinine 1.2 mg/dl (0.6-1.3); iSTAT Glucose > 700 mg/dl (70-99); iSTAT Hematocrit 38 % (42-52); iSTAT Hemoglobin 12.9 g/dl (14.0-18.0); iSTAT Ionized Calcium 1.28 mmol/l (1.12-1.32); iSTAT Potassium 5.3 mmol/L (3.3-5.0); iSTAT Sodium 134 mmol/L (135-144)
--- NOTE | 2023-08-20 13:17 | CT Scan Report ---
CT head/brain wo con CLINICAL HISTORY: unresponsive, poorly responsive L pupil Technique: Contiguous axial CT images of the head were acquired from the base of the skull to the mari rojas without intravenous contrast administration. Images were viewed in brain, subdural and bone [facility] Automated dose lowering techniques and/or adjustment according to patient size were utilized for this exam. Comparison: Comparison is made to CT head 05/15/2022 Findings: Areas of decreased attenuation are present in the periventricular and subcortical white matter bilate rally consistent with small vessel ischemic disease. Generalized cerebral atrophy with commensurate e nlargement of the ventricles, sulci, and cisterns is also present. There is no acute intracranial hem orrhage or evidence of acute territorial infarction. No shift of the midline structures, mass effect, or extra-axial abnormalities are shown. Atherosclerotic calcifications are present in the intracran ial segments of the internal carotid arteries. Imaged portions of the paranasal sinuses and mastoid air cells are clear. The orbits appear normal. There are no acute fractures of the calvaria or scalp swelling. Impression: No acute intracranial hemorrhage, no evidence of acute territorial infarction or other acute intracra nial disease process. ACT 112: Negative or not required by law. Electronically signed by: Jeanmarie Reeves M.D. 08/20/2023 1:15 PM
[2023-08-20 13:39] LABS: Amphetamines+Metham, Urine Neg (Neg); Barbiturates, Urine Neg (Neg); Benzodiazepine, Urine Neg (Neg); Cocaine, Urine Neg (Neg); MDMA (Ecstacy), Urine Neg (Neg); Marijuana, Urine Pos (Neg); Methadone, Urine Neg (Neg); Opiate, Urine Neg (Neg); Phencyclidine, Urine Neg (Neg)
[2023-08-20 13:48] LABS: iSTAT Arterial Blood Gas HCO3 3 meg/L (19-24); iSTAT Arterial Blood Gas pCO2 13 mmHg (35-46); iSTAT Arterial Blood Gas pH 6.97 (7.35-7.45); iSTAT Arterial Blood Gas pO2 122 mmHg (80-95); iSTAT Carbon Dioxide < 5 mmol/L (24-31); iSTAT Hematocrit 37 % (42-52); iSTAT Hemoglobin 12.6 g/dl (14.0-18.0); iSTAT Potassium 4.8 mmol/L (3.3-5.0); iSTAT Sodium 134 mmol/L (135-144)
[2023-08-20 14:59] LABS: BUN Creatinine Ratio 26.3 (10-20); Creatinine Clr Calc Pharmacy 48.6 ml/min; Est GFR (African American) 63.5 ml/min; Est GFR (Non-African American) 54.8 ml/min; Potassium 4.8 mmol/L (3.5-5.1)
[2023-08-20] MEDS: POTASSIUM CHLORIDE 30 MEQ in LACTATED RINGER'S 1,000 ML IV SCH (15:02)
[2023-08-20] MEDS ORDERED: PHARMACY GLYCEMIC MGMT CONSULT PRN (16:01)
[2023-08-20] MEDS ORDERED: INSULIN REGULAR 250 UNITS in SODIUM CHLORIDE 0.9% 247.5 ML IV SCH (16:01)
[2023-08-20] MEDS ORDERED: PENDING D5 1/2NS+40mEq KCL IVF SCH (16:01)
[2023-08-20] MEDS: INSULIN ASPART PER UNIT CHARGE SC SCH ×2 (16:04→18:31)
--- NOTE | 2023-08-20 16:20 | Critical Care Consultation ---
Date of Consultation August 20, 2023 Assessment & Plan (1) DKA (diabetic ketoacidosis): (2) Closed fracture of neck of right humerus: (3) Major depressive disorder, recurrent severe without psychotic features: (4) Intermittent explosive disorder: (5) High anion gap metabolic acidosis: Plan Reason Critically Ill: 38 YOM admitted for severe DKA with encephalopathy. Will be admitted to ICU for continued correction of his acid/base distrubance and glucose levels. Neuro -secondary to DKA. Anticipate his sensorium will clear as his metabolic disarray is adequately addressed and treated. He has a history of signing himself out AMA as soon as his sensorium clears Cardiac -tachycardia: Secondary to relative volume depletion. Patient is currently had about 3 and half liters of crystalloid. This is likely about half of what he needs given his severe hyperglycemia. Will give additional LR boluses and reassess. Respiratory -Kussmaul breathing secondary to acidosis. Continue to follow currently. Currently on room air GI - NO acute needs RENAL/LYTES -acute renal failure: Suspect volume depletion. Continue to trend electrolytes. Will need aggressive repletion of potassium, phosphate, calcium, and magnesium as insulin therapy continues.. - No acute needs ENDO - severe DKA due to medical noncompliance. Continue insulin infusion until gap closed, sensorium clears, and the patient is able to tolerate p.o. Can then transition to subcutaneous insulin regiment. Again anticipate the patient will sign himself out AMA prior to that. HEME - No acute needs ID -leukocytosis likely reactive. Hold on antibiotics for now. No clear source of infection. LINES/IV ACCESS - PIV, IO Continue use of these lines DVT PROPHYLAXIS - SCDS DISPO: ICU until metabolic derangements and encephalopathy has cleared as well as glucose in goal and gap closed History of Present Illness Attending Physician: Maulik Dozier MD History of Present Illness Asked by hospitalist to assist in ICU management of this patient with DKA. The patient is well-known to our service from multiple frequent admissions for medical noncompliance resulting in severe DKA. This 38-year-old male with insulin-dependent diabetes who was just admitted last month and signed out AMA. He was found unresponsive on his couch which is his typical presentation. He was found to have severe DKA. He was initiated on fluids and insulin. He had electrolyte abnormalities as well. He is admitted to the ICU. He is improving but remains encephalopathic. 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 Allergies Allergy/AdvReac Type Severity Reaction Status Date / Time codeine Allergy Intermediate Rash Verified 06/30/23 20:14 erythromycin base Allergy Unknown HAPPENED Verified 06/30/23 20:14 A SMALL CHILD Home Medications Medication Instructions Recorded Confirmed Type insulin syringe-needle U-100 0.3 #100 ea 07/31/21 07/19/23 Rx mL 31 gauge x 15/64" acetaminophen 500 mg tablet 1,000 mg PO Q8 PRN Pain 08/19/22 08/20/23 History (Tylenol Extra Strength) blood-glucose meter (OneTouch #1 ea 08/22/22 07/19/23 Rx Verio Reflect Meter) albuterol sulfate 90 mcg/actuation 2 puff inhalation Q6H PRN 01/30/23 08/20/23 Rx aerosol inhaler shortness of breath or wheezing #8.5 grams lancets 33 gauge #100 ea 01/30/23 07/19/23 Rx sildenafil 50 mg tablet 50 mg PO DAILY PRN sexual activity 02/02/23 08/20/23 Rx #20 tabs blood sugar diagnostic (OneTouch #100 ea 04/04/23 07/19/23 Rx Verio test strips) gabapentin 100 mg capsule 200 mg PO TID PRN Pain 06/30/23 08/20/23 History insulin lispro 100 unit/mL 20 unit (0.2 mL) subcut TID #30 mL 07/05/23 08/20/23 Rx subcutaneous pen (Humalog KwikPen (U-100) Insulin) Patient History Medical History Fracture of proximal humerus with nonunion Poorly controlled type 1 diabetes mellitus Major depressive disorder, recurrent severe without psychotic features Medical non-compliance Surgical History No significant past surgical history Family History Other Diabetes Social History Smoking Status: Never smoker Tobacco Type: Cigarettes Cigarettes Per Day: 1 pack; Second Hand Exposure: No; Do You Dip or Chew Tobacco: No; Hx Alcohol Use: No Hx Substance Use: No Preferred Language: Albanian Communication Ability: Impaired Visual Impairment: Limited Hearing 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: Normal 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 Beliefs That Will Affect Care: None marital status: Single Current Living Situation: Other Current Living Situation Comment: at home current occupational status: disabled How many Children do You have: 0 Feels Safe at Home: Yes Childhood Exposure to Second-Hand Smoke: No Diet: diabetic and regular caffeine: Yes during the past year weight has: remained stable Dental Care, Regularly: Yes Physical Activity Frequency: Daily Seatbelt Use: always Sunscreen Use: No Do you think of yourself as: straight/heterosexual Sexual Activity: has been sexually active within the last 12 months Gender Identity: Male Assistive Devices: Other Review of Systems Review of Systems: Unobtainable due to reduced consciousness Physical Exam Constitutional: WD/WN, vitals as above Neck: trachea midline, no thyromegaly Respiratory: normal respiratory effort, lungs clear to auscultation Cardiovascular: Rate/Rhythm: regular rhythm and + tachycardic Heart Sounds: normal S1 and normal S2 Gastrointestinal (Abdomen): normal bowel sounds, soft, nontender, no hepatosplenomegaly Musculoskeletal: Extremities: extremities normal to inspection Skin: no rashes, warm and dry Neurologic: Mildly encephalopathic Lymphatic: no cervical lymphadenopathy Results & Data Results & Data Vital Signs (Past 12 Hours) Vital Signs Temp Pulse Pulse Resp BP BP Pulse Ox 08/20/23 15:07 126 H 19 115/74 99 08/20/23 14:45 96/56 L 08/20/23 14:45 128 H 26 H 95 08/20/23 14:40 127 H 18 98 08/20/23 14:30 92/65 L 08/20/23 14:30 127 H 25 H 99 08/20/23 14:20 128 H 24 97 08/20/23 14:15 95/52 L 08/20/23 14:15 129 H 21 98 08/20/23 14:10 128 H 24 99 08/20/23 14:01 126 H 22 98 08/20/23 14:01 94/65 L 08/20/23 14:00 125 H 24 92 08/20/23 13:50 126 H 22 99 08/20/23 13:45 126 H 23 99 08/20/23 13:45 94/63 L 08/20/23 13:40 126 H 19 100 08/20/23 13:35 127 H 19 103/53 L 99 08/20/23 13:34 126 H 22 98 08/20/23 13:34 103/53 L 08/20/23 13:33 85/70 L 08/20/23 13:33 126 H 22 99 08/20/23 13:31 124 H 22 99 08/20/23 13:30 124 H 20 98 08/20/23 13:22 125 H 28 H 99 08/20/23 13:22 96/73 L 08/20/23 13:21 125 H 19 96/73 L 100 08/20/23 13:20 127 H 18 94 08/20/23 13:19 126 H 21 99 08/20/23 13:00 124 H 22 100 08/20/23 13:00 89/57 L 08/20/23 12:56 123 H 22 100/70 100 08/20/23 12:50 124 H 23 100 08/20/23 12:45 121 H 18 100 08/20/23 12:45 100/70 08/20/23 12:40 121 H 20 100 08/20/23 12:30 119 H 20 99 08/20/23 12:30 95/75 L 08/20/23 12:20 118 H 21 97 08/20/23 12:15 104/63 08/20/23 12:15 118 H 16 94 08/20/23 12:10 116 H 18 100 08/20/23 12:08 116 H 08/20/23 12:00 97/63 L 08/20/23 12:00 117 H 20 98 08/20/23 12:00 117 H 19 97/63 L 100 08/20/23 11:50 116 H 23 99 08/20/23 11:45 95/53 L 08/20/23 11:45 116 H 22 99 08/20/23 11:44 115 H 22 95/53 L 100 08/20/23 11:40 116 H 21 100 08/20/23 11:30 117 H 19 92 08/20/23 11:30 94/57 L 08/20/23 11:28 119 H 25 H 100 08/20/23 11:24 102/60 05 11:24 102/60 08/20/23 11:22 36.5 C 125 H 25 H 102/60 100 08/20/23 10:59 36.5 C 123 H 25 H 99/70 L 100 O2 Del Method 08/20/23 15:07 Room Air 08/20/23 14:45 08/20/23 14:45 08/20/23 14:40 08/20/23 14:30 08/20/23 14:30 08/20/23 14:20 08/20/23 14:15 08/20/23 14:15 08/20/23 14:10 08/20/23 14:01 08/20/23 14:01 08/20/23 14:00 08/20/23 13:50 08/20/23 13:45 08/20/23 13:45 08/20/23 13:40 08/20/23 13:35 Room Air 08/20/23 13:34 08/20/23 13:34 08/20/23 13:33 08/20/23 13:33 08/20/23 13:31 08/20/23 13:30 08/20/23 13:22 08/20/23 13:22 08/20/23 13:21 Room Air 08/20/23 13:20 08/20/23 13:19 08/20/23 13:00 08/20/23 13:00 08/20/23 12:56 Room Air 08/20/23 12:50 08/20/23 12:45 08/20/23 12:45 08/20/23 12:40 08/20/23 12:30 08/20/23 12:30 08/20/23 12:20 08/20/23 12:15 08/20/23 12:15 08/20/23 12:10 08/20/23 12:08 08/20/23 12:00 08/20/23 12:00 08/20/23 12:00 Room Air 08/20/23 11:50 08/20/23 11:45 08/20/23 11:45 08/20/23 11:44 08/20/23 11:40 08/20/23 11:30 08/20/23 11:30 08/20/23 11:28 Room Air 08/20/23 11:24 08/20/23 11:24 08/20/23 11:22 Room Air 08/20/23 10:59 Room Air Critical Care Results & Data Vital Signs (Past 12 Hours) Vital Signs Temp Pulse Pulse Resp BP BP Pulse Ox 08/20/23 15:07 126 H 19 115/74 99 08/20/23 14:45 96/56 L 08/20/23 14:45 128 H 26 H 95 08/20/23 14:40 127 H 18 98 08/20/23 14:30 92/65 L 08/20/23 14:30 127 H 25 H 99 08/20/23 14:20 128 H 24 97 08/20/23 14:15 95/52 L 08/20/23 14:15 129 H 21 98 08/20/23 14:10 128 H 24 99 08/20/23 14:01 126 H 22 98 08/20/23 14:01 94/65 L 08/20/23 14:00 125 H 24 92 08/20/23 13:50 126 H 22 99 08/20/23 13:45 126 H 23 99 08/20/23 13:45 94/63 L 08/20/23 13:40 126 H 19 100 08/20/23 13:35 127 H 19 103/53 L 99 08/20/23 13:34 126 H 22 98 08/20/23 13:34 103/53 L 08/20/23 13:33 85/70 L 08/20/23 13:33 126 H 22 99 08/20/23 13:31 124 H 22 99 08/20/23 13:30 124 H 20 98 08/20/23 13:22 125 H 28 H 99 08/20/23 13:22 96/73 L 08/20/23 13:21 125 H 19 96/73 L 100 08/20/23 13:20 127 H 18 94 08/20/23 13:19 126 H 21 99 08/20/23 13:00 124 H 22 100 08/20/23 13:00 89/57 L 08/20/23 12:56 123 H 22 100/70 100 08/20/23 12:50 124 H 23 100 08/20/23 12:45 121 H 18 100 08/20/23 12:45 100/70 08/20/23 12:40 121 H 20 100 08/20/23 12:30 119 H 20 99 08/20/23 12:30 95/75 L 08/20/23 12:20 118 H 21 97 08/20/23 12:15 104/63 08/20/23 12:15 118 H 16 94 08/20/23 12:10 116 H 18 100 08/20/23 12:08 116 H 08/20/23 12:00 97/63 L 08/20/23 12:00 117 H 20 98 08/20/23 12:00 117 H 19 97/63 L 100 08/20/23 11:50 116 H 23 99 08/20/23 11:45 95/53 L 08/20/23 11:45 116 H 22 99 08/20/23 11:44 115 H 22 95/53 L 100 08/20/23 11:40 116 H 21 100 08/20/23 11:30 117 H 19 92 08/20/23 11:30 94/57 L 08/20/23 11:28 119 H 25 H 100 08/20/23 11:24 102/60 08/20/23 11:24 102/60 08/20/23 11:22 36.5 C 125 H 25 H 102/60 100 08/20/23 10:59 36.5 C 123 H 25 H 99/70 L 100 O2 Del Method 08/20/23 15:07 Room Air 08/20/23 14:45 08/20/23 14:45 08/20/23 14:40 08/20/23 14:30 08/20/23 14:30 08/20/23 14:20 08/20/23 14:15 08/20/23 14:15 08/20/23 14:10 08/20/23 14:01 08/20/23 14:01 08/20/23 14:00 08/20/23 13:50 08/20/23 13:45 08/20/23 13:45 08/20/23 13:40 08/20/23 13:35 Room Air 08/20/23 13:34 08/20/23 13:34 08/20/23 13:33 08/20/23 13:33 08/20/23 13:31 08/20/23 13:30 08/20/23 13:22 08/20/23 13:22 08/20/23 13:21 Room Air 08/20/23 13:20 08/20/23 13:19 08/20/23 13:00 08/20/23 13:00 08/20/23 12:56 Room Air 08/20/23 12:50 08/20/23 12:45 08/20/23 12:45 08/20/23 12:40 08/20/23 12:30 08/20/23 12:30 08/20/23 12:20 08/20/23 12:15 08/20/23 12:15 08/20/23 12:10 08/20/23 12:08 08/20/23 12:00 08/20/23 12:00 08/20/23 12:00 Room Air 08/20/23 11:50 08/20/23 11:45 08/20/23 11:45 08/20/23 11:44 08/20/23 11:40 08/20/23 11:30 08/20/23 11:30 08/20/23 11:28 Room Air 08/20/23 11:24 08/20/23 11:24 08/20/23 11:22 Room Air 08/20/23 10:59 Room Air Lab & Micro Results (Past 24 Hours) RBC 3.60 M/uL (4.70-6.10) L 08/20/23 WBC 18.12 K/ul (4.8-10.8) H 08/20/23 Hgb 11.9 g/dl (14.0-18.0) L 08/20/23 Hct 35.0 % (42.0-52.0) L 08/20/23 MCV 101.4 fL (80.0-100.0) H 08/20/23 MCH 33.1 pg (25.0-34.0) 08/20/23 MCHC 31.4 g/dL (32.0-36.0) L 08/20/23 RDW Standard Deviation 59.1 fL (36.4-46.3) H 08/20/23 RDW Coefficient of Variation 16.0 % (11.5-14.5) H 08/20/23 Plt Count 496 K/uL (130-400) H 08/20/23 MPV 8.8 fL (9.4-12.4) L 08/20/23 Neutrophils (%) (Auto) 78.6 % 08/20/23 Lymphocytes (%) (Auto) 11.0 % 08/20/23 Monocytes # (Auto) 1.53 K/uL (0.11-0.59) H 08/20/23 Eosinophils # (Auto) 0.07 K/uL (0.00-0.50) 08/20/23 Immature Granulocyte % (Auto) 1.2 % 08/20/23 Neutrophils # (Auto) 14.24 K/uL (1.40-6.50) H 08/20/23 Lymphocytes # (Auto) 1.99 K/uL (1.20-3.40) 08/20/23 Monocytes # (Auto) 1.53 K/uL (0.11-0.59) H 08/20/23 Eosinophils # (Auto) 0.07 K/uL (0.00-0.50) 08/20/23 Basophils # (Auto) 0.08 K/uL (0.00-0.20) 08/20/23 Immature Granulocyte # (Auto) 0.21 K/uL (0.01-0.20) H 08/19 Na 137 mmol/L (136-145) 08/20/23 K 4.8 mmol/L (3.5-5.1) 08/20/23 Cl 100 mmol/L (98-107) 08/20/23 CO2 5 mmol/L (21-32) L* 08/20/23 Anion Gap 32 (3-11) H 08/20/23 BUN 41 mg/dl (6-23) H 08/20/23 Creatinine 1.56 mg/dl (0.6-1.4) H 08/20/23 Estimated GFR ( Amer) 63.5 ml/min 08/20/23 Estimated GFR (Non-Af Amer) 54.8 ml/min 08/20/23 BUN/Creatinine Ratio 26.3 (10-20) H 08/20/23 Glu 1006 mg/dl (70-99(Fasting)) H* 08/20/23 Ca 9.0 mg/dl (8.6-10.3) 08/20/23 Phosphorus Level 10.0 mg/dl (2.5-4.9) H 08/20/23 Total Bilirubin 0.3 mg/dl (0.2-1.0) 08/20/23 Direct Bilirubin 0.0 mg/dl (0-0.2) 08/20/23 AST 29 U/L (13-39) 08/20/23 ALT 20 U/L (7-52) 08/20/23 Alkaline Phosphatase 194 U/L (34-104) H 08/20/23 TP 6.4 gm/dl (6.0-8.3) 08/20/23 Albumin 3.5 gm/dl (3.4-5.0) 08/20/23 Globulin 2.9 gm/dl (2.5-4.0) 08/20/23 Albumin/Globulin Ratio 1.2 (0.9-2) 08/20/23 Mg 3.2 mg/dl (1.7-2.4) H 08/20/23 11:06 Calcium Level 9.0 mg/dl (8.6-10.3) 08/20/23 14:27 Prothromb Time International Ratio 0.9 (0.9-1.1) 08/20/23 11:0 6 Venous Blood pH < 7.00 (7.36-7.41) L 08/20/23 11:06 Venous Blood Partial Pressure CO2 20 mmHg (38-50) L 08/20/23 11 :06 Venous Blood Partial Pressure O2 68 mmHg 08/20/23 11:06 Venous Blood HCO3 TNP 08/20/23 11:06 Venous Blood Base Excess TNP 08/20/23 11:06 Venous Blood Oxygen Saturation 88.1 % 08/20/23 11:06 Diagnostic Findings (Past 24 Hours) Chest X-Ray 08/20/23 10:59 XR chest 1V portable CLINICAL HISTORY: Sepsis TECHNIQUE: Single frontal radiograph of the chest was obtained. Comparison: Comparison is made to chest radiograph 07/19/2023 FINDINGS: No lines and tubes are seen. The cardiomediastinal silhouette is normal. The lungs are clear. No evidence of pleural effusion or pneumothorax. IMPRESSION: No acute abnormalities and in particular no radiographic evidence of pneumonia. ACT 112: Negative or not required by law. Electronically signed by: Jeanmarie Reeves M.D. 08/20/2023 11:[address] 08/20/23 12:07 CT head/brain wo con CLINICAL HISTORY: unresponsive, poorly responsive L pupil Technique: Contiguous axial CT images of the head were acquired from the base of the skull to the vertex without intravenous contrast administration. Images were viewed in brain, subdural and bone windows. Automated dose lowering techniques and/or adjustment according to patient size were utilized for this exam. Comparison: Comparison is made to CT head 05/15/2022 Findings: Areas of decreased attenuation are present in the periventricular and subcortical white matter bilaterally consistent with small vessel ischemic disease. Generalized cerebral atrophy with commensurate enlargement of the ventricles, sulci, and cisterns is also present. There is no acute intracranial hemorrhage or evidence of acute territorial infarction. No shift of the midline structures, mass effect, or extra-axial abnormalities are shown. Atherosclerotic calcifications are present in the intracranial segments of the internal carotid arteries. Imaged portions of the paranasal sinuses and mastoid air cells are clear. The orbits appear normal. There are no acute fractures of the calvaria or scalp swelling. Impression: No acute intracranial hemorrhage, no evidence of acute territorial infarction or other acute intracranial disease process. ACT 112: Negative or not required by law. Electronically signed by: Jeanmarie Reeves M.D. 08/20/2023 1:15 PM I & O Totals 24 Hours 08/19/23 08/20/23 08/21/23 06:59 06:59 06:59 Intake Total 3381.557 / 3381.557 Output Total 2400 / 2400 Balance 981.557 / 981.557 Cumulative 08/20/23 10:39 thru 08/20/23 15:16 Intake Total 3381.557 Output Total 2400 Balance 981.557 RT Ventilator Mngmt (Last Documented) Ventilator Ordered Settings Respiratory Rate 19 08/20/23 15:07 Ventilator - PT Measurements Respiratory Rate 19 Coding Level of Care Code 96004 IN/OBS CONSULT LVL 4,60M Diagnoses DKA (diabetic ketoacidosis) E10.10 Diabetes mellitus complication detail: without coma Diabetes mellitus type: type 1 Closed fracture of neck of right humerus S42.211A Major depressive disorder, recurrent severe without psychotic features F33.2 Intermittent explosive disorder F63.81 High anion gap metabolic acidosis E87.2 (1) DKA (diabetic ketoacidosis) Diabetes mellitus complication detail: without coma Diabetes mellitus type: type 1 Qualified Code(s): E10.10 - Type 1 diabetes mellitus with ketoacidosis without coma
[2023-08-20] MEDS ORDERED: ICU Protocol for HYPERglycemia SCH (16:30)
[2023-08-20 16:39] LABS: Base Excess VBG -21.6 mEq/L; HCO3 VBG 6 mmol/L; PCO2 VBG 19 mmHg (38-50); PO2 VBG 66 mmHg; pH VBG 7.11 (7.36-7.41)
[2023-08-20] MEDS: DKA GOAL RANGE 150-250 mg/dl ONE (17:04)
[2023-08-20] MEDS: PLASMA-LYTE A 1,000 ML IV SCH (17:05)
[2023-08-20] MEDS: PENDING 1/2NSS+20mEq KCL IVF SCH (17:05)
[2023-08-20 17:21] LABS: BUN Creatinine Ratio 28.8 (10-20); Calcium 8.8 mg/dl (8.6-10.3); Creatinine Clr Calc Pharmacy 51.9 ml/min; Est GFR (African American) 68.7 ml/min; Est GFR (Non-African American) 59.3 ml/min; Magnesium 2.7 mg/dl (1.7-2.4); Phosphorus 5.5 mg/dl (2.5-4.9); Potassium 4.5 mmol/L (3.5-5.1)
[2023-08-20] MEDS: LACTATED RINGER'S 2,000 ML IV ONE (17:26)
[2023-08-20 18:29] LABS: BUN Creatinine Ratio 26.6 (10-20); Calcium 9.2 mg/dl (8.6-10.3); Est GFR (African American) 70.5 ml/min; Est GFR (Non-African American) 60.8 ml/min; Potassium 4.4 mmol/L (3.5-5.1)
[2023-08-20] MEDS: POTASSIUM CHLORIDE / WTR 10 MEQ/100 ML PLCT IV SCH (19:04)
[2023-08-20 19:19] LABS: Base Excess VBG -17.5 mEq/L; HCO3 VBG 8 mmol/L; Oxygen Saturation VBG 76.2 %; PCO2 VBG 21 mmHg (38-50); PO2 VBG 42 mmHg; pH VBG 7.21 (7.36-7.41)
[2023-08-20 19:46] LABS: BUN Creatinine Ratio 26.1 (10-20); Calcium 9.4 mg/dl (8.6-10.3); Est GFR (African American) 73.6 ml/min; Est GFR (Non-African American) 63.5 ml/min; Magnesium 2.6 mg/dl (1.7-2.4); Phosphorus 3.3 mg/dl (2.5-4.9); Potassium 4.6 mmol/L (3.5-5.1)
[2023-08-20] MEDS: HEPARIN SOD 5,000 UNIT/0.5 ML VIAL SQ SCH (20:05)
--- NOTE | 2023-08-20 20:42 | Communication Note ---
Date of Service: August 20, 20232029- Patient awake and agitated, that he wants to leave and that he can go home. - Patient was informed that he is still in DKA as well as dehydrated, and that it would benefit him to stay in the hospital until his labs and physiology improve- The patient understands this and states "so who cares I walked home from here with higher blood sugars before". He says he has his insulin at home. -The patient has normal mental status at this time and appears to have decision making capacity at this time- he is alert, oriented, and able to recall informa tion. He is also able to verbalize the risks of leaving and says he understands he could . - The patient was informed of that he could if he goes home at this time without continuing to treat his elevated glucose levels, as well as his dehydration and electrolyte disturbances. - He does not currently have a way home and is attempting to call his girlfriend to come and pick him up- We will try to get his girlfriend to assist with him staying if he is able to get in touch with her, and if can't get a hold of her then will continue to attempt to get patient to stay. - The admitting service has been updated as well. 2129- Patient has currently decided to stay as he can not get in touch with his girlfriend for a ride. Will continue to work with the pateint if this arises again through the night, stressing that we are concerned with his health and providing the therapies he needs at this time. Lawrence REINOSO (ACN-)
[2023-08-20] MEDS: POTASSIUM CHLORIDE 40 MEQ in D5W AND 1/2NSS 1,000 ML IV SCH (21:59)
[2023-08-20 23:37] LABS: Base Excess VBG -8.9 mEq/L; HCO3 VBG 17 mmol/L; Oxygen Saturation VBG 97.6 %; PCO2 VBG 35 mmHg (38-50); PO2 VBG 79 mmHg; pH VBG 7.29 (7.36-7.41)
[2023-08-21] LABS: BUN Creatinine Ratio 24.6 (10-20); Creatinine Clr Calc Pharmacy 66.5 ml/min; Est GFR (African American) 92.7 ml/min; Magnesium 2.3 mg/dl (1.7-2.4); Potassium 4.2 mmol/L (3.5-5.1)
[2023-08-21] MEDS: POTASSIUM CHLORIDE / WTR 10 MEQ/100 ML PLCT IV SCH (00:22)
[2023-08-21] MEDS: DEXTROSE 50% 50 ML SYRINGE IV PRN (01:22)
[2023-08-21 03:44] LABS: Base Excess VBG -7.1 mEq/L; HCO3 VBG 19 mmol/L; Oxygen Saturation VBG 95.7 %; PCO2 VBG 38 mmHg (38-50); PO2 VBG 69 mmHg
[2023-08-21 04:09] LABS: BUN Creatinine Ratio 23.2 (10-20); Calcium 8.7 mg/dl (8.6-10.3); Creatinine Clr Calc Pharmacy 76.6 ml/min; Est GFR (Non-African American) 94.9 ml/min; Magnesium 2.3 mg/dl (1.7-2.4); Phosphorus 3.1 mg/dl (2.5-4.9); Potassium 4.7 mmol/L (3.5-5.1)
[2023-08-21 07:24] LABS: Estimated Average Glucose 237 mg/dl; Hemoglobin A1C 9.9 % (4.5-5.6)
[2023-08-21 07:38] LABS: Base Excess VBG -6.7 mEq/L; HCO3 VBG 19 mmol/L; Oxygen Saturation VBG 94.5 %; PCO2 VBG 39 mmHg (38-50); PO2 VBG 64 mmHg
[2023-08-21] MEDS: INSULIN ASPART PER UNIT CHARGE SC SCH (08:07)
[2023-08-21 08:29] LABS: BUN Creatinine Ratio 20.9 (10-20); Calcium 8.6 mg/dl (8.6-10.3); Creatinine Clr Calc Pharmacy 88.2 ml/min; Est GFR (African American) 125.7 ml/min; Est GFR (Non-African American) 108.5 ml/min; Magnesium 2.2 mg/dl (1.7-2.4); Phosphorus 2.7 mg/dl (2.5-4.9); Potassium 4.6 mmol/L (3.5-5.1)
--- NOTE | 2023-08-21 08:37 | Electrocardiogram Report ---
Test Reason : Blood Pressure : / mmHG Vent. Rate : 125 BPM Atrial Rate : 125 BPM P-R Int : 142 ms QRS Dur : 090 ms QT Int : 330 ms P-R-T Axes : 059 075 -59 degrees QTc Int : 476 ms Sinus tachycardia Abnormal ECG When compared with ECG of 19-JUL-2023 10:36, T wave inversion now evident in Inferior leads Confirmed by Pan Cummins ([id number]) on 08/21/2023 8:36:57 AM Referred By: REFERRED SELF Confirmed By:Uriah Cummins
[2023-08-21] MEDS ORDERED: GLUCAGON FOR INJ 1 MG VIAL SQ PRN (09:27)
[2023-08-21] MEDS ORDERED: GLUCOSE 10 TAB/TUBE PO PRN (09:27)
[2023-08-21] MEDS ORDERED: CARBOHYDRATES FOR HYPOGLYCEMIA PO PRN (09:27)
[2023-08-21] MEDS ORDERED: GLUCOSE 40% GEL 15 GM TUBE PO PRN (09:27)
[2023-08-21] MEDS ORDERED: DEXTROSE 50% 50 ML SYRINGE IV PRN (09:27)
[2023-08-21] MEDS: LANTUS PER UNIT CHARGE SQ ONE (09:57)
[2023-08-21] MEDS: PANTOprazole 40 MG in SYRINGE 0 ML IV SCH (09:57)
[2023-08-21] MEDS ORDERED: NovoLIN-R BOLUS FROM BAG IV ONE (11:15)
[2023-08-21] MEDS ORDERED: INSULIN ASPART PER UNIT CHARGE SC SCH (11:30)
[2023-08-21 11:47] LABS: BUN Creatinine Ratio 21.8 (10-20); Calcium 8.5 mg/dl (8.6-10.3); Creatinine Clr Calc Pharmacy 97.2 ml/min; Est GFR (African American) 130.9 ml/min; Est GFR (Non-African American) 112.9 ml/min; Magnesium 2.2 mg/dl (1.7-2.4); Phosphorus 2.2 mg/dl (2.5-4.9); Potassium 4.8 mmol/L (3.5-5.1)
[2023-08-21 12:07] LABS: Base Excess VBG -9.4 mEq/L; HCO3 VBG 16 mmol/L; Oxygen Saturation VBG 79.6 %; PCO2 VBG 35 mmHg (38-50); PO2 VBG 45 mmHg; pH VBG 7.28 (7.36-7.41)
--- NOTE | 2023-08-21 13:56 | Pharmacy Report ---
Pharmacy Glycemic Short Note 2 - Date of Service August 21, 2023 - Glycemic Short BSG Results (Last 24 hours): 08/20/23 08/20/23 08/20/23 13:43 14:27 16:30 Glucose 1006 H* 910 H* POC Glucose > 600 H* 08/20/23 08/20/23 08/20/23 17:59 19:11 20:21 Glucose 613 H* 443 H* POC Glucose 379 H* 08/20/23 08/20/23 08/20/23 21:19 21:38 21:55 Glucose POC Glucose 240 H 227 H 230 H 08/20/23 08/20/23 08/20/23 22:12 23:21 23:23 Glucose 285 H POC Glucose 259 H 276 H 08/21/23 08/21/23 08/21/23 00:16 01:17 01:39 Glucose POC Glucose 239 H 176 H 230 H 08/21/23 08/21/23 08/21/23 01:56 02:58 03:37 Glucose 270 H POC Glucose 261 H 296 H 08/21/23 08/21/23 08/21/23 03:58 04:58 06:32 Glucose POC Glucose 289 H 188 H 325 H* 08/21/23 08/21/23 08/21/23 06:33 07:12 07:27 Glucose 249 H POC Glucose 331 H* 227 H 08/21/23 08/21/23 08/21/23 10:13 10:15 11:14 Glucose 498 H* POC Glucose 467 H* 465 H* 459 H* 08/21/23 08/21/23 11:16 12:58 Glucose POC Glucose 470 H* 303 H* OUTPATIENT ANTIDIABETIC REGIMEN: * Lantus 40 units SQ BID * Humalog 20 units w/ meals * requires substantially lower doses while hospitalized HbA1C: 9.9% (08/20/23) ASSESSMENT: * Pt is a poorly controlled type 1 diabetic well known to glycemic pharmacy service admitted with DKA. Initial labs: pH 6.97, AG-38, CO2-3, BSG >600. * Initiated on an insulin drip per DKA protocol. Dextrose containing IVF started last evening once BSG within goal range. * Pt leaving AMA this AM. Pt requesting drip to be discontinued (stopped prior to basal overlap, rate 1.8unit/hr). AG-13, CO2-19. Lantus 20 units SQ X 1 based upon historical inpatient data. Novolog ACHS 30/12 starting with lunch. Will add overnight checks in the event he stays. PLAN FOR INPATIENT GLYCEMIC CONTROL: * Hold outpatient oral diabetes medications * Basal insulin * Insulin drip --> d/c * Lantus 20 units SQ X 1 + HS scale depending on BSG * Bolus insulin * NovoLog per scale ACHS or Q6hrs while NPO * Goal Range: Low 110 mg/dL - High 140 mg/dL * Correction Factor: 30 mg/dL/unit * Nutritional / Prandial insulin per carb ratio of 1 unit per 12 grams CHO consumed
--- NOTE | 2023-08-21 18:07 | Discharge Summary ---
Discharge Summary Date of Service August 21, 2023 Notes For Next Care Provider pt left AMA diabetic control is not assured Admission HPI Per Admitting Provider Laron is a 38-year-old male with a history of type I DM with recent admissions for DKA in the setting of medication noncompliance, GERD, tobacco abuse, MDD who was found unresponsive on his couch by his significant other this morning who contacted EMS. Patient last known well was last night. Family not present for collateral at time of admitting H&P. Brought in by ambulance after being found unresponsive by his girlfriend. Patient is not able to give collateral, is obtunded. Attempted to contact patient's primary contact Kelsy Musaffer [phone] for collateral, no answer. Last admission for DKA was in the setting of influenza A with nausea/vomiting. No reported history of recreational drug use Medical History: Reviewed in EMR Medications: Reviewed in EMR Surgical History: Reviewed in EMR Family history: Reviewed in EMR Allergies: Reviewed in EMR Social History: Reviewed in EMR Code Status: Full Principal Dx & Hospital Course #1 = Principal Diagnosis (1) Unresponsive: Patient found unresponsive by his girlfriend 08/19. Had had similar appearing episodes with DKA in the past with medication noncompliance Suspect due to DKA pt is awake as DKA has resolved gap closed, given lantus, at food, left ama (2) DKA, type 1: DKA resolved (3) BERNARD (acute kidney injury): Baseline renal function less than 1.27, elevated at 1.76 with profound volume contraction with DKA ckd3 (4) History of GI bleed: History of GI bleed (5) Diabetic foot ulcer associated with type 1 diabetes mellitus: (6) Medical non-compliance: Patient with history of AMA discharges, medication noncompliance (7) Admitted to intensive care unit: Updated Medication List Medication Instructions Recorded Confirmed Type insulin syringe-needle U-100 0.3 #100 ea 07/31/21 07/19/23 Rx mL 31 gauge x 15/64" acetaminophen 500 mg tablet 1,000 mg PO Q8 PRN Pain 08/19/22 08/20/23 History (Tylenol Extra Strength) blood-glucose meter ([employer] #1 ea 08/22/22 07/19/23 Rx Verio Reflect Meter) albuterol sulfate 90 mcg/actuation 2 puff inhalation Q6H PRN 01/30/23 08/20/23 Rx aerosol inhaler shortness of breath or wheezing #8.5 grams lancets 33 gauge #100 ea 01/30/23 07/19/23 Rx sildenafil 50 mg tablet 50 mg PO DAILY PRN sexual activity 02/02/23 08/20/23 Rx #20 tabs blood sugar diagnostic (OneTouch #100 ea 04/04/23 07/19/23 Rx Verio test strips) gabapentin 100 mg capsule 200 mg PO TID PRN Pain 06/30/23 08/20/23 History insulin lispro 100 unit/mL 20 unit (0.2 mL) subcut TID #30 mL 07/05/23 08/20/23 Rx subcutaneous pen (Humalog KwikPen (U-100) Insulin) Hospital Stay Data Consultations 08/20/23 11:56 ED Decision to Admit Stat 08/20/23 13:22 Consult Internet Marketing Intern Routine Diagnostic Imagining Performed 08/20/23 12:07 CT head/brain wo con Stat Pending Results Patient Have Any Pending Studies at Discharge: No Total Time Total Time Spent Total Time Spent (In Minutes): It required less than 30 minutes to prepare this patient for discharge. Coding Level of Care Code 13705 IN/OBS DISCH 30 MIN/LESS Diagnoses Unresponsive R41.89 DKA, type 1 E10.10 Diabetes mellitus complication detail: without coma BERNARD (acute kidney injury) N17.9 History of GI bleed Z87.19 Diabetic foot ulcer associated with type 1 diabetes mellitus E10.621; L97.509 Medical non-compliance Z91.199 Admitted to intensive care unit Z78.9
[2023-08-21] MEDS ORDERED: LANTUS PER UNIT CHARGE SC SCH (21:00)
[2023-08-22] MEDS ORDERED: INSULIN ASPART PER UNIT CHARGE SC SCH
[2023-08-23 13:17] LABS: Marijuana Quant, GCMS Urine 86 ng/mL (<5)
== END 2023-08-21 15:27 | disposition left against medical advice (07) | DRG 637 ==
LOC: ED 10:57 → 1E 13:22 → SUATTDRO 13:22 → 1E 15:15